=== PATIENT | female | born 1950 | race Caucasian/White ===

== ENCOUNTER 2018-06-07 08:45 | Emergency (ER) | payer OTHER ==
[2018-06-07] MEDS ORDERED: ASPIRIN 81 MG CHEWABLE TABLET ONE (10:00)
[2018-06-07] MEDS ORDERED: NA CHLORIDE 0.9% 1,000 ML ONE (10:00)
[2018-06-07 10:45] LABS: Protime INR 0.91
[2018-06-07 10:46] LABS: Absolute Lymphocytes (CBC) 1.5 K/uL (0.7-4.9); Absolute Monocytes 0.8 K/uL (0.1-1.3); Absolute Neutrophil 5.2 K/uL (1.8-8.0); Basophils % 0.9 % (0-1.3); Eosinophils % 1.2 % (0-4.4); Lymphocytes % 19.8 % (15.3-44.8); MCV 79.7 fL (80-100); MPV 8.7 fL (7.6-11.3); Monocytes % 10.8 % (3.3-12.3); RBC Red Blood Cell Count 3.77 M/uL (3.86-4.86)
[2018-06-07 10:56] LABS: ALT/SGPT 14 U/L (12-78); AST/SGOT 12 U/L (15-37); Albumin 3.7 g/dL (3.4-5.0); Alkaline Phosphatase 59 U/L (45-117); BUN Blood Urea Nitrogen 30 mg/dL (7-18); Bicarbonate 30 mmol/L (21-32); Bilirubin Direct 0.2 mg/dL (0-0.2); Bilirubin Total 0.7 mg/dL (0.2-1.0); Glucose Level 80 mg/dL (74-106); Lipase 1459 U/L (73-393); Magnesium 1.5 mg/dL (1.8-2.4); NT PRO-BNP 385 pg/mL (<125); Potassium 3.8 mmol/L (3.5-5.1); Protein, Total 6.9 g/dL (6.4-8.2); Sodium Level 139 mmol/L (136-145); Troponin (Emerg Dept Use Only) < 0.02 ng/mL (0.0-0.045)
[2018-06-07] MEDS ORDERED: LEVALBUTEROL 1.25 MG/3 ML NEB ONE (10:58)
[2018-06-07] MEDS ORDERED: CEFTRIAXONE/SWI 1gm 1 GM/10 ML SYR ONE (10:58)
[2018-06-07] MEDS ORDERED: IPRATROPIUM BROM 0.5MG/2.5ML ONE (10:58)
[2018-06-07] MEDS ORDERED: AZITHROMYCIN 500 MG/250 ML BAG ONE (10:58)
[2018-06-07 11:31] LABS: Urine Blood NEGATIVE (NEG); Urine Glucose NEGATIVE (NEG); Urine Protein NEGATIVE (NEG); Urine Specific Gravity 1.015 (1.005-1.030); Urine pH 7.5 (5.0-7.0)
[2018-06-07] MEDS ORDERED: Magnesium Sulfate 2gm IVPB 2 G/50 ML BAG IV ONE (11:40)
--- NOTE | 2018-06-07 11:45 | EKG ---
Test Date: 2018-06-07 Test Time: 10:04:48 Dietitian Consultant: ELIDA MEASUREMENT RESULTS: Intervals: Rate: 66 MA: 172 QRSD: 86 QT: 402 QTc: 421 [place]: P: 34 MA: 172 QRS: 58 T: 18 INTERPRETIVE STATEMENTS: Normal sinus rhythm Normal ECG Compared to ECG 12/11/2014 06:27:35 Sinus bradycardia no longer present Electronically Signed On 06-07-18 11:44:13 DREDGE OPERATOR SUPERVISOR by Xavier Pineda
--- NOTE | 2018-06-07 12:21 | RAD REPORT ---
EXAM DESCRIPTION: CT - Abdomen Pelvis W Contrast - 06/07/2018 11:50 am CLINICAL HISTORY: Abdominal pain, prior cholecystectomy and appendectomy COMPARISON: September 2013 CT imaging thoracic imaging 2017 TECHNIQUE: Biphasic, helical CT imaging of the abdomen and pelvis was performed following 100 ml non -ionic IV contrast. Oral contrast was given. Scanner malfunction resulted in an essentially precontra st and single-phase examination. All CT scans are performed using dose optimization technique as appropriate and may include automated exposure control or mA/KV adjustment according to patient size. FINDINGS: No suspicious findings in the lung bases. No pericardial thickening or effusion. Liver size is normal with no focal splenic abnormality. Spleen has a nodular contour similar to prior imaging. No acute splenic process. No pancreatic acute finding. Gallbladder is absent. No abnormal b iliary tree dilatation. Renal function is symmetric. No hydronephrosis or obstructing calculus. No pyelonephritis findings. N o urinary bladder wall thickening or mass. Uterus is absent. Ovaries are absent or atrophic. No dilated bowel loops or bowel wall thickening. Large amount of stool is present throughout the colo n. Diverticulosis is minimal. No free air, free fluid or inflammatory stranding. No hernia, mass or bulky lymphadenopathy. No adrenal abnormality. No suspicious bony findings. Acute bone finding suspected. Patient has extensive degenerative change in the lumbar spine. Partial compression of T12 is stable. IMPRESSION: Contrast enhanced CT abdomen and pelvis imaging shows no acute finding. There is large s tool volume throughout the colon.
--- NOTE | 2018-06-07 12:27 | ER ---
Nurse's Notes [facility] Name: Linda Menezes Age: 68 yrs Sex: Female : 1950 Arrival Date: 06/07/2018 Time: 08:49 Bed 13 Private MD: Bruce Joe E Diagnosis: Acute upper respiratory infection, unspecified;Bronchitis, not specified as acute or chronic;Type 2 diabetes mellitus;Other chronic pancreatitis-elevated lipase;Urinary tract infection, site not specified;Anemia, unspecified Presentation: 06/07 09:23 Presenting complaint: Patient states: last week was not feeling well, had cough, runny iw nose, this morning she woke up and couldn't breathe and had a hacking and dry cough, also having chest tightness. Transition of care: patient was not received from another setting of care. Onset of symptoms was May 31, 2018. Risk Assessment: Do you want to hurt yourself or someone else? Patient reports no desire to harm self or others. Initial Sepsis Screen: Does the patient meet any 2 criteria? No. Patient's initial sepsis screen is negative. Does the patient have a suspected source of infection? No. Patient's initial sepsis screen is negative. Care prior to arrival: None. 09:23 Method Of Arrival: Ambulatory iw 09:23 Acuity: ALHAJI 3 iw Historical: - Allergies: : NKA; iw - Home Meds: : naproxen 500 mg Oral TbEC 1 tab 2 times per day [Active]; glipizide 5 mg Oral tr24 1 iw tab once daily [Active]; metformin 850 mg Oral tab 1 tab 2 times per day [Active]; levothyroxine 137 mcg tab 1 tab once daily [Active]; fluticasone 50 mcg/actuation nasal spsn 1 spray once daily [Active]; potassium chloride 20 mEq Oral TbTQ 1 tab once daily [Active]; clonazepam 0.5 mg Oral tab 1 tab nightly [Active]; omeprazole 40 mg Oral cpDR 1 cap once daily [Active]; tramadol 50 mg Oral tab [Active]; carvedilol 6.25 mg oral tab 1 tab 2 times per day [Active]; duloxetine 20 mg oral cpDR daily [Active]; losartan-hydrochlorothiazide 100-25 mg oral tab 1 tab once daily [Active]; lovastatin 40 mg Oral tab 1 tab once daily [Active]; amlodipine 5 mg tab 1 tab once daily [Active]; - PMHx: 09:31 Diabetes - NIDDM; Hypertension; restless leg syndrome; iw - PSHx: 09:31 Hysterectomy; Carpal Tunnel Repair; Cholecystectomy; Appendectomy; right elbow; back; iw - Immunization history:: Adult Immunizations up to date. - Social history:: Smoking status: Patient/guardian denies using tobacco. - Ebola Screening: : Patient negative for fever greater than or equal to 101.5 degrees Fahrenheit, and additional compatible Ebola Virus Disease symptoms Patient denies exposure to infectious person Patient denies travel to an Ebola-affected area in the 21 days before illness onset No symptoms or risks identified at this time. - Family history:: not pertinent. Screenin:45 Abuse screen: Denies threats or abuse. Denies injuries from another. Nutritional jl7 screening: No deficits noted. Tuberculosis screening: No symptoms or risk factors identified. Fall Risk IV access (20 points). Total Vargas Fall Scale indicates No Risk (0-24 pts). Assessment: 09:45 General: Appears in no apparent distress. uncomfortable, Behavior is calm, cooperative, jl7 appropriate for age. Pain: Denies pain. Neuro: Level of Consciousness is awake, alert, obeys commands, Oriented to person, place, time, situation. Cardiovascular: Heart tones S1 S2 present Patient's skin is warm and dry. Respiratory: Airway is patent Respiratory effort is even, unlabored, Respiratory pattern is regular, symmetrical, Breath sounds are coarse in right upper lobe and left upper lobe. GI: No signs and/or symptoms were reported involving the gastrointestinal system. : No signs and/or symptoms were reported regarding the genitourinary system. EENT: No signs and/or symptoms were reported regarding the EENT system. Derm: Skin is pink, warm \T\ dry. Musculoskeletal: No signs and/or symptoms reported regarding the musculoskeletal system. 10:45 Reassessment: Patient appears in no apparent distress at this time. Patient and/or jl7 family updated on plan of care and expected duration. Pain level reassessed. Patient is alert, oriented x 3, equal unlabored respirations, skin warm/dry/pink. 11:49 Reassessment: No changes from previously documented assessment. Patient and/or family jl7 updated on plan of care and expected duration. Pain level reassessed. Patient is alert, oriented x 3, equal unlabored respirations, skin warm/dry/pink. Vital Signs: 09:31 BP 157 / 70; Pulse 68; Resp 18 S; Temp 98.8(TE); Pulse Ox 97% on R/A; Weight 79.38 kg; iw Height 5 ft. 4 in. (162.56 cm); Pain 4/10; 10:30 BP 132 / 65; Pulse 67; Resp 16 S; Pulse Ox 95% on R/A; jl7 12:07 BP 119 / 63; Pulse 68; Resp 18 S; Pulse Ox 95% on R/A; jl7 09:31 Body Mass Index 30.04 (79.38 kg, 162.56 cm) iw ED Course: 08:49 Patient arrived in ED. mr 08:50 Bruce Joe MD is Private Physician. mr 09:25 Triage completed. iw 09:26 Cee Alegria, RN is Primary Nurse. jl7 09:28 Frantz Urban MD is Attending Physician. nasrin 09:31 Arm band placed on. iw 09:45 Patient has correct armband on for positive identification. Placed in gown. Bed in low jl7 position. Call light in reach. Side rails up X2. laboratory monitor on. Pulse ox on. NIBP on. Warm blanket given. 10:05 Initial lab(s) drawn, by ca, sent to lab. Urine collected: clean catch specimen, jl7 cloudy. Inserted saline lock: 20 gauge in right hand, using aseptic technique. Blood collected. 10:08 First set of blood cultures drawn by me. jl7 10:09 EKG done, by production maintenance technician. reviewed by Frantz Urban MD. at1 10:30 Second set of blood cultures drawn. jl7 11:02 X-ray completed. Portable x-ray completed in exam room. Patient tolerated procedure jb2 well. 11:10 XRAY Chest (1 view) In Process Unspecified. EDMS 11:43 CT completed. Patient tolerated procedure well. Patient moved to CT via stretcher. vr 11:50 Patient moved back from CT. vr 11:51 CT Abd/Pelvis - W/Contrast In Process Unspecified. EDMS 12:26 Bruce Joe MD is Referral Physician. nasrin 12:26 Nissa Nixon MD is Referral Physician. [facility] 13:12 No provider procedures requiring assistance completed. IV discontinued, intact, jl7 bleeding controlled, No redness/swelling at site. Pressure dressing applied. Administered Medications: 10:00 Drug: NS 0.9% 1000 ml Route: IV; Rate: 125 ml/hr; Site: right antecubital; jl7 13:10 Follow up: IV Status: Completed infusion; Order to discontinue infusion jl7 11:30 Drug: Zithromax 500 mg Route: IVPB; Infused Over: 1 hrs; Site: right antecubital; jl7 13:08 Follow up: Response: No adverse reaction; IV Status: Completed infusion jl7 11:39 Drug: Magnesium Sulfate 2 grams Route: IVPB; Infused Over: 2 hrs; Site: right jl7 antecubital; 13:08 Follow up: IV Status: Completed infusion jl7 11:40 Not Given (Other Intervention Used): Rocephin - (cefTRIAXone) 1 grams IVPB once over 30 jl7 mins; (mix in 50 mL NS) 11:43 Drug: Aspirin 162 mg Route: PO; jl7 13:07 Follow up: Response: No adverse reaction jl7 11:43 Drug: Xopenex 2.5 mg Route: Inhalation; jl7 13:09 Follow up: Response: No adverse reaction jl7 11:43 Drug: AtroVENT Aerosol 0.5 mg Route: Inhalation; jl7 13:09 Follow up: Response: No adverse reaction jl7 11:43 Drug: Rocephin 1 grams Route: IV; Rate: calculated rate; Site: right antecubital; jl7 11:46 Follow up: Response: No adverse reaction; IV Status: Completed infusion jl7 Outcome: 12:27 Discharge ordered by . [facility] 13:11 Discharged to home ambulatory. jl7 13:11 Condition: stable 13:11 Discharge instructions given to patient, Instructed on discharge instructions, follow up and referral plans. medication usage, Demonstrated understanding of instructions, follow-up care, medications. 13:13 Patient left the ED. jl7 Signatures: Dispatcher [employer] EDFrantz Ballesteros MD MD cha Rivera, Rosamaria mr Elvis, Gabe jb2 Supriya Stevenson, RN RN Patti Newell Amanda, crocodile farmer EKG Tat1 Alegria, Jahala, RN RN jl7
--- NOTE | 2018-06-07 12:27 | EDPHYS ---
Physician Documentation [facility] Name: Linda Menezes Age: 68 yrs Sex: Female : 1950 Arrival Date: 06/07/2018 Time: 08:49 Bed 13 Private MD: Bruce Joe E ED Physician Frantz Urban HPI: 06/07 10:06 This 68 yrs old Female presents to ER via Ambulatory with complaints of nasrin Cough, Congestion. 10:06 The patient or guardian reports airway noise, cough. Onset: The symptoms/episode nasrin began/occurred 5 day(s) ago. Severity of symptoms: At their worst the symptoms were mild, in the emergency department the symptoms are unchanged. Modifying factors: The symptoms are alleviated by nothing, the symptoms are aggravated by nothing. The patient has not experienced similar symptoms in the past. Historical: - Allergies: NKA; iw - Home Meds: : naproxen 500 mg Oral TbEC 1 tab 2 times per day [Active]; glipizide 5 mg Oral tr24 1 iw tab once daily [Active]; metformin 850 mg Oral tab 1 tab 2 times per day [Active]; levothyroxine 137 mcg tab 1 tab once daily [Active]; fluticasone 50 mcg/actuation nasal spsn 1 spray once daily [Active]; potassium chloride 20 mEq Oral TbTQ 1 tab once daily [Active]; clonazepam 0.5 mg Oral tab 1 tab nightly [Active]; omeprazole 40 mg Oral cpDR 1 cap once daily [Active]; tramadol 50 mg Oral tab [Active]; carvedilol 6.25 mg oral tab 1 tab 2 times per day [Active]; duloxetine 20 mg oral cpDR daily [Active]; losartan-hydrochlorothiazide 100-25 mg oral tab 1 tab once daily [Active]; lovastatin 40 mg Oral tab 1 tab once daily [Active]; amlodipine 5 mg tab 1 tab once daily [Active]; - PMHx: : Diabetes - NIDDM; Hypertension; restless leg syndrome; iw - PSHx: Hysterectomy; Carpal Tunnel Repair; Cholecystectomy; Appendectomy; right elbow; back; iw - Immunization history:: Adult Immunizations up to date. - Social history:: Smoking status: Patient/guardian denies using tobacco. - Ebola Screening: : Patient negative for fever greater than or equal to 101.5 degrees Fahrenheit, and additional compatible Ebola Virus Disease symptoms Patient denies exposure to infectious person Patient denies travel to an Ebola-affected area in the 21 days before illness onset No symptoms or risks identified at this time. - Family history:: not pertinent. ROS: 10:06 Constitutional: Negative for fever, chills, and weight loss, Eyes: Negative for injury, nasrin pain, redness, and discharge, ENT: Negative for injury, pain, and discharge, Neck: Negative for injury, pain, and swelling, Cardiovascular: Negative for chest pain, palpitations, and edema, Abdomen/GI: Negative for abdominal pain, nausea, vomiting, diarrhea, and constipation, Back: Negative for injury and pain, : Negative for injury, bleeding, discharge, and swelling, MS/Extremity: Negative for injury and deformity, Skin: Negative for injury, rash, and discoloration, Neuro: Negative for headache, weakness, numbness, tingling, and seizure, Psych: Negative for depression, anxiety, suicide ideation, homicidal ideation, and hallucinations, Allergy/Immunology: Negative for hives, rash, and allergies, Endocrine: Negative for neck swelling, polydipsia, polyuria, polyphagia, and marked weight changes, Hematologic/Lymphatic: Negative for swollen nodes, abnormal bleeding, and unusual bruising. 10:06 Constitutional: Positive for body aches. 10:06 Respiratory: Positive for cough, wheezing, expiratory. Exam: 10:06 Constitutional: This is a well developed, well nourished patient who is awake, alert, nasrin and in no acute distress. Head/Face: Normocephalic, atraumatic. Eyes: Pupils equal round and reactive to light, extra-ocular motions intact. Lids and lashes normal. Conjunctiva and sclera are non-icteric and not injected. Cornea within normal limits. Periorbital areas with no swelling, redness, or edema. ENT: Nares patent. No nasal discharge, no septal abnormalities noted. Tympanic membranes are normal and external auditory canals are clear. Oropharynx with no redness, swelling, or masses, exudates, or evidence of obstruction, uvula midline. Mucous membranes moist. Neck: Trachea midline, no thyromegaly or masses palpated, and no cervical lymphadenopathy. Supple, full range of motion without nuchal rigidity, or vertebral point tenderness. No Meningismus. Chest/axilla: Normal chest wall appearance and motion. Nontender with no deformity. No lesions are appreciated. Cardiovascular: Regular rate and rhythm with a normal S1 and S2. No gallops, murmurs, or rubs. Normal PMI, no JVD. No pulse deficits. Abdomen/GI: Soft, non-tender, with normal bowel sounds. No distension or tympany. No guarding or rebound. No evidence of tenderness throughout. Back: No spinal tenderness. No costovertebral tenderness. Full range of motion. Female : Normal external genitalia. Skin: Warm, dry with normal turgor. Normal color with no rashes, no lesions, and no evidence of cellulitis. MS/ Extremity: Pulses equal, no cyanosis. Neurovascular intact. Full, normal range of motion. Neuro: Awake and alert, GCS 15, oriented to person, place, time, and situation. Cranial nerves II-XII grossly intact. Motor strength 5/5 in all extremities. Sensory grossly intact. Cerebellar exam normal. Normal gait. Psych: Awake, alert, with orientation to person, place and time. Behavior, mood, and affect are within normal limits. 10:06 Respiratory: the patient does not display signs of respiratory distress, Respirations: normal, Breath sounds: are clear throughout, rhonchi, that are mild. Vital Signs: 09:31 BP 157 / 70; Pulse 68; Resp 18 S; Temp 98.8(TE); Pulse Ox 97% on R/A; Weight 79.38 kg; iw Height 5 ft. 4 in. (162.56 cm); Pain 4/10; 10:30 BP 132 / 65; Pulse 67; Resp 16 S; Pulse Ox 95% on R/A; jl7 12:07 BP 119 / 63; Pulse 68; Resp 18 S; Pulse Ox 95% on R/A; jl7 09:31 Body Mass Index 30.04 (79.38 kg, 162.56 cm) iw MDM: 09:28 Patient medically screened. [facility] 10:07 Data reviewed: vital signs, nurses notes, lab test result(s), EKG, radiologic studies, nasrin plain films. 06/07 09:35 Order name: Basic Metabolic Panel; Complete Time: 11: [facility] 06/07 09:35 Order name: CBC with Diff; Complete Time: 11: [facility] 06/07 09:35 Order name: LFT's; Complete Time: 11:09 [facility] 06/07 09:35 Order name: Magnesium; Complete Time: 11:09 [facility] 06/07 09:35 Order name: NT PRO-BNP; Complete Time: 11:09 [facility] 06/07 09:35 Order name: PT-INR; Complete Time: 11:09 [facility] 06/07 09:35 Order name: Troponin (emerg Dept Use Only); Complete Time: 11:09 [facility] 06/07 09:35 Order name: XRAY Chest (1 view) [facility] 06/07 09:35 Order name: Flu; Complete Time: 11:32 [facility] 06/07 09:35 Order name: Lipase; Complete Time: 11:09 [facility] 06/07 09:35 Order name: Urine Culture [facility] 06/07 10:05 Order name: Blood Culture Adult (2) [facility] 06/07 10:21 Order name: Urine Dipstick--Ancillary (enter results); Complete Time: 11:32 06/07 11:11 Order name: CT Abd/Pelvis - W/Contrast; Complete Time: 12:26 [facility] 06/07 09:35 Order name: EKG; Complete Time: 09:38 [facility] 06/07 09:35 Order name: Cardiac monitoring; Complete Time: 11:45 [facility] 06/07 09:35 Order name: EKG - Nurse/Tech; Complete Time: 11:45 [facility] 06/07 09:35 Order name: IV Saline Lock; Complete Time: 11:45 [facility] 06/07 09:35 Order name: Labs collected and sent; Complete Time: 11:45 [facility] 06/07 09:35 Order name: O2 Per Protocol; Complete Time: 11:45 [facility] 06/07 09:35 Order name: O2 Sat Monitoring; Complete Time: 11:44 [facility] 06/07 09:35 Order name: Urine Dipstick-Ancillary (obtain specimen); Complete Time: 11:44 [facility] Administered Medications: 10:00 Drug: NS 0.9% 1000 ml Route: IV; Rate: 125 ml/hr; Site: right antecubital; jl7 13:10 Follow up: IV Status: Completed infusion; Order to discontinue infusion 11:30 Drug: Zithromax 500 mg Route: IVPB; Infused Over: 1 hrs; Site: right antecubital; jl7 13:08 Follow up: Response: No adverse reaction; IV Status: Completed infusion jl7 11:39 Drug: Magnesium Sulfate 2 grams Route: IVPB; Infused Over: 2 hrs; Site: right jl7 antecubital; 13:08 Follow up: IV Status: Completed infusion jl7 11:40 Not Given (Other Intervention Used): Rocephin - (cefTRIAXone) 1 grams IVPB once over 30 jl7 mins; (mix in 50 mL NS) 11:43 Drug: Aspirin 162 mg Route: PO; jl7 13:07 Follow up: Response: No adverse reaction 7 11:43 Drug: Xopenex 2.5 mg Route: Inhalation; jl7 13:09 Follow up: Response: No adverse reaction jl7 11:43 Drug: AtroVENT Aerosol 0.5 mg Route: Inhalation; jl7 13:09 Follow up: Response: No adverse reaction 7 11:43 Drug: Rocephin 1 grams Route: IV; Rate: calculated rate; Site: right antecubital; jl7 11:46 Follow up: Response: No adverse reaction; IV Status: Completed infusion jl7 Disposition: 06/07/18 12:27 Discharged to Home. Impression: Acute upper respiratory infection, unspecified, Bronchitis, not specified as acute or chronic, Type 2 diabetes mellitus, Other chronic pancreatitis - elevated lipase, Urinary tract infection, site not specified, Anemia, unspecified. - Condition is Stable. - Discharge Instructions: Acute Bronchitis, Adult, How to Use an Inhaler, Upper Respiratory Infection, Adult, Cool Mist Vaporizer, Upper Respiratory Infection, Adult, [id number], Cough, Adult. - Prescriptions for Medrol (Misha) 4 mg Oral Tablets, Dose Pack - take 1 tablet by ORAL route as directed - follow package instructions; 1 packet. Albuterol Sulfate 90 mcg/actuation - inhale 1-2 puff by INHALATION route every 4-6 hours; 1 Inhaler. Levaquin 500 mg Oral Tablet - take 1 tablet by ORAL route once daily for 10 days; 10 tablet. - Medication Reconciliation Form, Thank You Letter, Antibiotic Education, Prescription Opioid Use form. - Follow up: Bruce Joe; When: 2 - 3 days; Reason: Recheck today's complaints, Continuance of care, Re-evaluation by your physician. Follow up: Nissa Nixon; When: 2 - 3 days; Reason: Recheck today's complaints, Re-evaluation by your physician. - Problem is new. - Symptoms have improved. Signatures: Dispatcher [employer] EDMS Frantz Urban MD MD cha Williams, Irene, RN RN iw Leal, Jahala, RN RN jl7 Corrections: (The following items were deleted from the chart) 13:13 12:27 06/07/2018 12:27 Discharged to Home. Impression: Acute upper respiratory jl7 infection, unspecified; Bronchitis, not specified as acute or chronic; Type 2 diabetes mellitus; Other chronic pancreatitis - elevated lipase; Urinary tract infection, site not specified; Anemia, unspecified. Condition is Stable. Discharge Instructions: Acute Bronchitis, Adult, How to Use an Inhaler, Upper Respiratory Infection, Adult, Cool Mist Vaporizer, Upper Respiratory Infection, Adult, [id number], Cough, Adult. Prescriptions for Medrol (Misha) 4 mg Oral Tablets, Dose Pack - take 1 tablet by ORAL route as directed - follow package instructions; 1 packet, Albuterol Sulfate 90 mcg/actuation - inhale 1-2 puff by INHALATION route every 4-6 hours; 1 Inhaler, Levaquin 500 mg Oral Tablet - take 1 tablet by ORAL route once daily for 10 days; 10 tablet. and Forms are Medication Reconciliation Form, Thank You Letter, Antibiotic Education, Prescription Opioid Use. Follow up: Bruce Joe; When: 2 - 3 days; Reason: Recheck today's complaints, Continuance of care, Re-evaluation by your physician. Follow up: Nissa Nixon; When: 2 - 3 days; Reason: Recheck today's complaints, Re-evaluation by your physician. Problem is new. Symptoms have improved. nasrin
--- NOTE | 2018-06-07 13:10 | RAD REPORT ---
EXAM DESCRIPTION: Elisha Single View06/07/2018 11:09 am CLINICAL HISTORY: Cough COMPARISON: 2014 FINDINGS: The lungs appear clear of acute infiltrate. The heart is borderline enlarged IMPRESSION: No acute abnormalities displayed
[2018-06-07 15:10] VITALS: TEMP 98.8
[2018-06-07 15:12] VITALS: O2SAT 95
[2018-06-07 15:13] VITALS: BP 119/63
== END 2018-06-07 13:13 | disposition home or self-care (01) ==
LOC: ER 08:45
DX: J40 Bronchitis, not specified as acute or chronic (principal); N39.0 Urinary tract infection, site not specified; K86.1 Other chronic pancreatitis; D64.9 Anemia, unspecified; E11.9 Type 2 diabetes mellitus without complications; I10 Essential (primary) hypertension
CPT/HCPCS: 36415; 71045; 74177; 80048; 80076; 81003; 83690; 83735; 83880; 84484; 85025; 85610; 87040 ×2; 87086; 87088; 87804 ×2; 93005; J0456; J0696; J3475; J7030; Q9967

== ENCOUNTER 2018-06-09 08:43 | Observation (INO) | payer OTHER ==
[2018-06-09] MEDS ORDERED: ONDANSETRON 4 MG/2 ML VIAL ONE (09:34)
[2018-06-09] MEDS ORDERED: NA CHLORIDE 0.9% 500 ML ONE (09:34)
[2018-06-09] MEDS ORDERED: FAMOTIDINE 20 MG/2 ML VIAL IV ONE (09:34)
[2018-06-09 09:46] LABS: Absolute Lymphocytes (CBC) 1.4 K/uL (0.7-4.9); Absolute Monocytes 0.5 K/uL (0.1-1.3); Absolute Neutrophil 5.1 K/uL (1.8-8.0); Basophils % 1.1 % (0-1.3); Eosinophils % 1.5 % (0-4.4); Hematocrit 28.5 % (36.0-45.0); Lymphocytes % 18.9 % (15.3-44.8); MCH 25.8 pg (27.0-35.0); MCV 79.3 fL (80-100); MPV 8.3 fL (7.6-11.3); Monocytes % 7.2 % (3.3-12.3); RBC Red Blood Cell Count 3.59 M/uL (3.86-4.86)
[2018-06-09 10:04] LABS: ALT/SGPT 15 U/L (12-78); AST/SGOT 12 U/L (15-37); Albumin 3.3 g/dL (3.4-5.0); Alkaline Phosphatase 52 U/L (45-117); BUN Blood Urea Nitrogen 36 mg/dL (7-18); Bicarbonate 28 mmol/L (21-32); Bilirubin Direct 0.2 mg/dL (0-0.2); Bilirubin Total 0.6 mg/dL (0.2-1.0); Glucose Level 98 mg/dL (74-106); Lipase 1203 U/L (73-393); Protein, Total 6.5 g/dL (6.4-8.2); Sodium Level 139 mmol/L (136-145); Troponin (Emerg Dept Use Only) < 0.02 ng/mL (0.0-0.045)
--- NOTE | 2018-06-09 10:54 | RAD REPORT ---
EXAM DESCRIPTION: RAD - Chest Single View - 06/09/2018 10:47 am CLINICAL HISTORY: COUGH Chest pain. COMPARISON: Chest Single View dated 06/07/2018; CHEST SINGLE VIEW dated 12/10/2014; CHEST SINGLE VIEW dated 12/09/2014; CHEST PA AND LAT 2 VIEW dated 11/30/2014 FINDINGS: Portable technique limits examination quality. The lungs are grossly clear. The heart is upper limit of normal in size. No displaced fractures. IMPRESSION: No acute intrathoracic process suspected.
[2018-06-09] MEDS ORDERED: METOCLOPRAMIDE 10 MG/2mL INJ ONE (13:29)
[2018-06-09] MEDS ORDERED: MORPHINE 2 MG/ML SYR ONE (13:29)
--- NOTE | 2018-06-09 14:14 | EKG ---
Test Date: 2018-06-09 Test Time: 11:36:47 Csm Consultant: ELIDA MEASUREMENT RESULTS: Intervals: Rate: 62 GA: 188 QRSD: 92 QT: 446 QTc: 452 [place]: P: 26 GA: 188 QRS: 15 T: 33 INTERPRETIVE STATEMENTS: Normal sinus rhythm Normal ECG Compared to ECG 06/07/2018 10:04:48 No significant changes Electronically Signed On 06-09-18 14:13:27 CUSTOM SHOEMAKER by Xavier Pineda
[2018-06-09] MEDS ORDERED: TRAMADOL HCL 50 MG TAB PO PRN (15:31)
[2018-06-09] MEDS ORDERED: SODIUM CHLORIDE 0.9% 10ML INJ IV PRN (15:31)
[2018-06-09] MEDS ORDERED: ALBUTEROL 2.5 MG/3 ML NEB SOL NEB PRN (15:31)
[2018-06-09] MEDS ORDERED: MORPHINE 2 MG/ML SYR IV PRN (15:31)
[2018-06-09] MEDS ORDERED: ACETAMINOPHEN 500 MG TAB PO PRN (15:31)
[2018-06-09] MEDS ORDERED: HYDROCODONE/APAP 7.5/325 MG TAB PO PRN (15:31)
[2018-06-09] MEDS ORDERED: BENZONATATE 100 MG CAP PO PRN (15:31)
[2018-06-09] MEDS ORDERED: ONDANSETRON 4 MG/2 ML VIAL IV PRN (15:31)
[2018-06-09] MEDS ORDERED: IPRATROPIUM BROM 0.5MG/2.5ML NEB PRN (15:31)
[2018-06-09] MEDS ORDERED: HYDRALAZINE HCL 20 MG/ML VIAL IV PRN (15:31)
[2018-06-09] MEDS ORDERED: clonazePAM 0.5 MG TAB PO PRN (15:31)
--- NOTE | 2018-06-09 15:57 | ER ---
Nurse's Notes [facility] Name: Linda Menezes Age: 68 yrs Sex: Female : 1950 Arrival Date: 06/09/2018 Time: 08:48 Bed 18 Private MD: Bruce Joe E Diagnosis: Weakness;Nausea and vomiting-Intractable;Dehydration;Renal Insufficiency Presentation: 06/09 09:00 Presenting complaint: Patient states: Seen 2 days ago in ER for cough, feet swelling/ ss tingling and reports that she was supposed to follow up with her PCP today in 30 minutes, but began vomiting and felt as if she couldn't wait that long. Transition of care: patient was not received from another setting of care. Onset of symptoms was May 30, 2018. Risk Assessment: Do you want to hurt yourself or someone else? Patient reports no desire to harm self or others. Initial Sepsis Screen: Does the patient meet any 2 criteria? No. Patient's initial sepsis screen is negative. Does the patient have a suspected source of infection? No. Patient's initial sepsis screen is negative. Care prior to arrival: None. 09:00 Method Of Arrival: Ambulatory ss 09:00 Acuity: ALHAJI 3 ss Historical: - Allergies: 09:02 NKA; ss - PMHx: 09:02 Diabetes - NIDDM; Hypertension; restless leg syndrome; ss - PSHx: 09:02 Hysterectomy; Carpal Tunnel Repair; Cholecystectomy; Appendectomy; right elbow; back; ss - Immunization history:: Adult Immunizations up to date. - Social history:: Smoking status: Patient/guardian denies using tobacco. - Ebola Screening: : Patient denies exposure to infectious person Patient denies travel to an Ebola-affected area in the 21 days before illness onset. Screenin:30 Abuse screen: Denies threats or abuse. Nutritional screening: No deficits noted. em Tuberculosis screening: No symptoms or risk factors identified. Fall Risk None identified. Assessment: 09:30 General: Appears in no apparent distress. comfortable, Behavior is calm, cooperative, em Denies fever. Pain: Complains of pain in diaphragm Pain currently is 4 out of 10 on a pain scale. Neuro: Level of Consciousness is awake, alert, obeys commands, Oriented to person, place, time, situation. Cardiovascular: Capillary refill < 3 seconds Patient's skin is warm and dry. Respiratory: Reports cough that is dry, Airway is patent Respiratory effort is even, unlabored, Respiratory pattern is regular, symmetrical, Breath sounds are clear bilaterally. GI: Abdomen is round non-distended, Reports nausea, vomiting, Patient currently denies diarrhea. : No signs and/or symptoms were reported regarding the genitourinary system. EENT: No signs and/or symptoms were reported regarding the EENT system. Derm: Skin is intact, Skin is pink, warm \T\ dry. Musculoskeletal: Range of motion: intact in all extremities. 09:40 General: The previous assessment is accurate, call light remains within reach. ss 10:45 Reassessment: Patient appears in no apparent distress at this time. Patient and/or em family updated on plan of care and expected duration. Pain level reassessed. Patient is alert, oriented x 3, equal unlabored respirations, skin warm/dry/pink. Patient states symptoms have not improved. 11:30 Reassessment: Patient appears in no apparent distress at this time. Patient and/or em family updated on plan of care and expected duration. Pain level reassessed. Patient is alert, oriented x 3, equal unlabored respirations, skin warm/dry/pink. 13:30 Reassessment: Patient appears in no apparent distress at this time. pt reports pain and em nausea, provider notified, new medication orders received. 14:30 Reassessment: Patient appears in no apparent distress at this time. Patient and/or em family updated on plan of care and expected duration. Pain level reassessed. Patient is alert, oriented x 3, equal unlabored respirations, skin warm/dry/pink. resting comfortably. 15:10 Reassessment: Dr. Arriaza at bedside, pending admission. em 15:32 Reassessment: Patient appears in no apparent distress at this time. Patient and/or em family updated on plan of care and expected duration. Pain level reassessed. Patient is alert, oriented x 3, equal unlabored respirations, skin warm/dry/pink. rates pain 2/10 Patient states feeling better. Patient states symptoms have improved. 16:30 Reassessment: Patient appears in no apparent distress at this time. Patient and/or em family updated on plan of care and expected duration. Pain level reassessed. Patient is alert, oriented x 3, equal unlabored respirations, skin warm/dry/pink. Patient states feeling better. Patient states symptoms have improved. 17:42 Reassessment: Patient appears in no apparent distress at this time. Patient and/or em family updated on plan of care and expected duration. Pain level reassessed. Patient is alert, oriented x 3, equal unlabored respirations, skin warm/dry/pink. Patient states feeling better. Patient states symptoms have improved. Vital Signs: 09:02 BP 166 / 81; Pulse 69; Resp 17; Temp 98.8(O); Pulse Ox 98% on R/A; Weight 78.93 kg; ss Height 5 ft. 4 in. (162.56 cm); Pain 4/10; 10:34 BP 126 / 67; Pulse 60; Resp 18; Pulse Ox 99% on R/A; em 12:00 BP 127 / 59; Pulse 66; Resp 18; Pulse Ox 99% on R/A; em 13:00 BP 112 / 84; Pulse 73; Resp 18; Pulse Ox 97% on R/A; Pain 6/10; em 09:02 Body Mass Index 29.87 (78.93 kg, 162.56 cm) ED Course: 08:48 Patient arrived in ED. sb2 08:49 Bruce Joe MD is Private Physician. sb2 08:56 Tomi Mijares LVN is Primary Nurse. em 09:02 Triage completed. ss 09:02 Arm band placed on right wrist. ss 09:08 Justin Singh MD is Attending Physician. kdr 09:35 Initial lab(s) drawn, by me, sent to lab. Inserted saline lock: 20 gauge in right em antecubital area, using aseptic technique. Blood collected. 09:45 Patient has correct armband on for positive identification. Placed in gown. Bed in low em position. Call light in reach. Adult w/ patient. 10:44 X-ray completed. Portable x-ray completed in exam room. Patient tolerated procedure jb2 well. 10:47 CXR XRAY In Process Unspecified. EDMS 11:42 EKG done, by quality control technician. reviewed by Justin Singh MD. at1 15:53 Sumit Arriaza DO is Hospitalizing Provider. kdr 17:19 by me, sent to lab. mh5 17:41 No provider procedures requiring assistance completed. Patient admitted, IV remains in em place. Administered Medications: 09:38 Drug: Zofran 4 mg Route: IVP; Site: right antecubital; ss 10:37 Follow up: Response: No adverse reaction; Nausea unchanged em 09:38 Drug: Pepcid 20 mg Route: IVP; Site: right antecubital; ss 10:37 Follow up: Response: No adverse reaction; Pain is decreased em 09:40 Drug: NS 0.9% 500 ml Route: IV; Rate: bolus; Site: right antecubital; em 10:33 Follow up: IV Status: Completed infusion; IV Intake: 500ml em 13:37 Drug: Reglan 10 mg Route: IVP; Site: right antecubital; ss 15:37 Follow up: Response: No adverse reaction; Nausea is decreased em 13:51 Drug: morphine 2 mg Route: IVP; Site: right antecubital; ss 15:38 Follow up: Response: No adverse reaction; Pain is decreased em Intake: 10:33 IV: 500ml; Total: 500ml. em Outcome: 15:56 Decision to Hospitalize by Provider. kdr 17:41 Admitted to Med/surg accompanied by tech, via wheelchair, room 421, with chart, Report em called to SENG Anguiano 17:41 Condition: good 17:41 Instructed on the need for admit, Demonstrated understanding of instructions. 17:42 Patient left the ED. em Signatures: Dispatcher [employer] EDMS Justin Singh MD MD kdr Buechter, Jesse jb2 Tomi Mijares, EDM OPERATOR EDM OPERATOR em Chantelle Varela RN RN Gretel Shin, rn international EKG [email or web address] Tammy Scherer mh5 Elaine Lucero2 Corrections: (The following items were deleted from the chart) 09:03 09:00 Presenting complaint: Patient states: Seen 2 days ago in ER for cough and reports ss that she was supposed to follow up with her PCP today in 30 minutes, but began vomiting and felt as if she couldn't wait that long. ss 13:35 13:29 BP 112 / 84; Pulse 71bpm; Resp 18bpm; Pulse Ox 99% RA; Pain 9/10; em em 13:35 12:00 BP 125 / 95; Pulse 83bpm; Resp 18bpm; Pulse Ox 99% RA; Pain 9/10; em em 13: 12:01 General: Appears uncomfortable, Behavior is calm, cooperative, Denies fever, em em 13: 12:01 Pain: Complains of pain in right lower quadrant Pain currently is 9 out of 10 on em a pain scale. Quality of pain is described as sharp, stabbing, Pain began 1 week ago em 13: 12:01 Neuro: Level of Consciousness is awake, alert, obeys commands, Oriented to em person, place, time, situation, em 13: 12:01 Cardiovascular: Capillary refill < 3 seconds Patient's skin is warm and dry. em em 13: 12:01 Respiratory: Airway is patent Respiratory effort is even, unlabored, Respiratory em pattern is regular, symmetrical, em 13: 12: GI: Abdomen is round non-distended, Bowel sounds present X 4 quads. Abd is soft X em 4 quads Abdomen is tender to palpation in right lower quadrant Reports nausea, Patient currently denies diarrhea, em : 12: : No signs and/or symptoms were reported regarding the genitourinary system. em Denies burning with urination, discharge, vaginal bleeding, em 13: 12:01 EENT: No signs and/or symptoms were reported regarding the EENT system. em em 13: 12:01 Derm: Skin is intact, Skin is pink, warm \T\ dry. em em 13: 12:01 Musculoskeletal: Range of motion: intact in all extremities, em em
--- NOTE | 2018-06-09 15:57 | EDPHYS ---
Physician Documentation [facility] Name: Linda Menezes Age: 68 yrs Sex: Female : 1950 Arrival Date: 06/09/2018 Time: 08:48 Bed 18 Private MD: Bruce Joe E ED Physician Justin Singh Historical: - Allergies: 06/09 09:02 NKA; ss - PMHx: 09:02 Diabetes - NIDDM; Hypertension; restless leg syndrome; ss - PSHx: 09:02 Hysterectomy; Carpal Tunnel Repair; Cholecystectomy; Appendectomy; right elbow; back; ss - Immunization history:: Adult Immunizations up to date. - Social history:: Smoking status: Patient/guardian denies using tobacco. - Ebola Screening: : Patient denies exposure to infectious person Patient denies travel to an Ebola-affected area in the 21 days before illness onset. Vital Signs: 09:02 BP 166 / 81; Pulse 69; Resp 17; Temp 98.8(O); Pulse Ox 98% on R/A; Weight 78.93 kg; ss Height 5 ft. 4 in. (162.56 cm); Pain 4/10; 10:34 BP 126 / 67; Pulse 60; Resp 18; Pulse Ox 99% on R/A; em 12:00 BP 127 / 59; Pulse 66; Resp 18; Pulse Ox 99% on R/A; em 13:00 BP 112 / 84; Pulse 73; Resp 18; Pulse Ox 97% on R/A; Pain 6/10; em 09:02 Body Mass Index 29.87 (78.93 kg, 162.56 cm) ss MDM: 15:56 Patient medically screened. kdr 06/09 09:19 Order name: Basic Metabolic Panel; Complete Time: 10:58 kdr 06/09 09:19 Order name: CBC with Diff; Complete Time: 10:58 kdr 06/09 09:19 Order name: Creatinine for Radiology; Complete Time: 10:58 kdr 06/09 09:19 Order name: Hepatic Function; Complete Time: 10:58 kdr 06/09 09:19 Order name: Lipase; Complete Time: 10:58 kdr 06/09 09:19 Order name: Troponin (emerg Dept Use Only); Complete Time: 10:58 kdr 06/09 09:19 Order name: IV Saline Lock; Complete Time: 11:26 kdr 06/09 09:19 Order name: CXR XRAY; Complete Time: 10:58 kdr 06/09 16:34 Order name: RAD EDMS 06/09 09:19 Order name: Labs collected and sent; Complete Time: 11:26 kdr 06/09 09:19 Order name: EKG - Nurse/Tech; Complete Time: 12:54 kdr Administered Medications: 09:38 Drug: Zofran 4 mg Route: IVP; Site: right antecubital; ss 10:37 Follow up: Response: No adverse reaction; Nausea unchanged em 09:38 Drug: Pepcid 20 mg Route: IVP; Site: right antecubital; ss 10:37 Follow up: Response: No adverse reaction; Pain is decreased em 09:40 Drug: NS 0.9% 500 ml Route: IV; Rate: bolus; Site: right antecubital; em 10:33 Follow up: IV Status: Completed infusion; IV Intake: 500ml em 13:37 Drug: Reglan 10 mg Route: IVP; Site: right antecubital; ss 15:37 Follow up: Response: No adverse reaction; Nausea is decreased em 13:51 Drug: morphine 2 mg Route: IVP; Site: right antecubital; ss 15:38 Follow up: Response: No adverse reaction; Pain is decreased em Disposition: 06/09/18 15:56 Hospitalization ordered by Sumit Arriaza for Observation. Preliminary diagnosis are Weakness, Nausea and vomiting - Intractable, Dehydration, Renal Insufficiency. - Bed requested for Telemetry/MedSurg (observation). - Status is Observation. em - Condition is Fair. - Problem is an ongoing problem. - Symptoms are unchanged. UTI on Admission? No Addendum: 06/16/2018 06:03 Addendum: CC: Vomiting HPI: The patient states that she has been feeling poorly for the k dr last day and had an appointment with her PCP in about 30 minutes but didnt feel well enough to get the office . Addendum: ROS: Const: No fever, chills or weight loss, Eyes: no visual changes or c/o, Neck: no pain or injury, CV: no CP or palpitations, Resp: no SOB, cough or congestion, Abd: no diarrhea or pain, she has had n/v this morning Back: no pain or injury, : no pain or bleeding, MS/Ext: no pain, injury, swelling, tingling, Skin: no lacerations, pain, injury, skin turgor good, Neuro: CN grossly intact and no other deficits, Psych: Appropriate for age, Allergy/Immunology: no rashes or other s/s, Endo: no evidence of polyuria, polydipsia, temperature control or other s/s . Addendum: Exam: Const: WDWN WF in mild, Head/Face: no injury, pain or deformity, Eyes: PERRLA, ENT: no pain, injury or bleeding, Neck: no pain, injury or deformity, full ROM, Chest/Axilla: No pain, injury or deformity, CV: no rubs, gallops, murmurs, regular rate, Resp: CTAB, regular rate, Abd/GI: soft, NT, BS present in all quads and normal, Back: no injury or deformity, full ROM, MS/Extremity: no injury or deformity, FROM, distal pulses good and equal, Skin: no rashes, ecchymosis skin turgor good, Neuro: CN grossly intact, no other neuro deficits, Psych: appropriate for age, no SI/HI, no depression . Addendum: MDM (Admission - stable) All VS and nursing notes reviewed. The patient and/or family was counseled on the results and need for admission. The patient was admitted in stable condition. They were happy with the care received and the plan for admission and further evaluation and treatment. . Signatures: Dispatcher [employer] EDMS Justin Singh MD MD kdr Munoz, Edgar, TABLEAU DEVELOPER TABLEAU DEVELOPER Michael Harry emChantelle Sánchez, SENG RN ss Corrections: (The following items were deleted from the chart) 06/09 16:43 15:56 Hospitalization Ordered by Sumit Arriaza DO for Observation. Preliminary em1 diagnosis is Weakness; Nausea and vomiting - Intractable; Dehydration; Renal Insufficiency. Bed requested for Telemetry/MedSurg (observation). Status is Observation. Condition is Fair. Problem is an ongoing problem. Symptoms are unchanged. UTI on Admission? No. kdr 17:42 16:43 06/09/2018 15:56 Hospitalization Ordered by Sumit Arriaza DO for Observation. em Preliminary diagnosis is Weakness; Nausea and vomiting - Intractable; Dehydration; Renal Insufficiency. Bed requested for Telemetry/MedSurg (observation). Status is Observation. Condition is Fair. Problem is an ongoing problem. Symptoms are unchanged. UTI on Admission? No. em1
--- NOTE | 2018-06-09 16:11 | P.HP ---
Certification for Inpatient Patient admitted to: Observation With expected LOS: <2 Midnights Patient will require the following post-hospital care: None Practitioner: I am a practitioner with admitting privileges, knowledge of patient current condition, hospital course, and medical plan of care. Services: Services provided to patient in accordance with Admission requirements found in Title 42 Section 412.3 of the Code of Federal Regulations Patient History Date of Service: 06/09/18 Primary Care Provider: Dr. Joe Reason for admission: Nausea, vomiting and shortness of breath History of Present Illness: 68-year-old female presented to the emergency room with nausea, vomiting and shortness of breath. Patient was recently seen in the emergency room for bronchitis. Patient was sent home with Medrol dose pack, Levaquin and albuterol treatment. Since that time the patient still reports some mild cough with some shortness of breath. Shooter reports some increased nausea, vomiting and congestion. She denies any significant fever, chills. Patient denies any abdominal pain, diarrhea or constipation. Patient came to the ER for further evaluation. In the ER patient had white count of 7.2, hemoglobin 9.3. Sodium 139, potassium 4.0, BUN of 36, creatinine 1.5 with a GFR of 34. Lipase of 1200. Blood sugar 98. Chest x-ray unremarkable. Previous CT scan on 06/07/2018 was unremarkable except increased stool in the colon. No pancreatitis or acute abdominal abnormality noted. Patient was admitted for further evaluation. When I saw the patient ER, she appeared comfortable. Blood pressure stable. Room-air saturations within normal range. She denied any significant abdominal pain improved. Patient appeared tired patient with history of hypertension, diabetes, hypothyroidism. Allergies No Known Drug Allergies Allergy (Verified 12/09/14 22:09) Unknown Home medications list reviewed: Yes Home Medications: Allopurinol [Zyloprim*] 100 mg PO DAILY 04/09/13 Amlodipine Besylate 10 mg PO DAILY 04/09/13 Cyanocobalamin [Vitamin B-12*] 1 ml IJ 15AC 04/09/13 Gabapentin [Neurontin*] 900 mg PO BID 04/09/13 Levothyroxine [Synthroid*] 125 mcg PO [id number] 04/09/13 Lovastatin [Mevacor] 40 mg PO DAILY 04/09/13 Metformin HCl [Glucophage*] 500 mg PO BID 04/09/13 Naproxen [Naprosyn] 500 mg PO BID 04/09/13 Potassium Chloride [K-Dur] 20 meq PO BID 04/09/13 Sumatriptan [Imitrex*] 50 mg PO DAILY PRN 04/09/13 Zolpidem Tartrate 5 mg PO BEDTIME PRN 04/09/13 clonazePAM [Klonopin*] 0.5 mg PO BID #60 tab 04/14/13 Hydrocodone/Acetaminophen [Vicodin 5-325 mg Tablet] 1 each PO Q4H PRN #30 tablet 12/12/14 Ciprofloxacin HCl [Cipro 500 MG Tablet] 500 mg PO BID #10 tablet 12/13/14 Docusate/Senna [Senokot-S*] 2 tab PO DAILY #60 tab 12/14/14 - Past Medical/Surgical History Diabetic: Yes -: Diabetes mellitus type 2, non insulin dependent -: Hypertension -: Hypothyroidism -: Gout -: GERD -: Restless leg syndrome -: Neuropathy -: Hysterectomy, 1977 -: intussusception of intestines -: compression disc fracture -: Carpal tunnel Sx, 1983 -: R. elbow Sx, 1999 -: [place] CATARACT SX 2014 -: colconoscopy date unknown, pt advised Psychosocial/ Personal History: The patient is a . She has 2 children. - Family History Father -: Diabetes, Stroke Mother -: Hypertension, Diabetes, Stroke, Cancer Notes: breast - Social History Smoking Status: Never smoker Alcohol use: No CD- Drugs: No Caffeine use: Yes Place of Residence: Home Review of Systems General: Weakness, As per HPI Eyes: Unremarkable ENT: Nose Congestion, As per HPI Respiratory: Cough, Shortness of Breath, Wheezing, As per HPI Cardiovascular: Unremarkable Gastrointestinal: Nausea, Vomiting, As per HPI Genitourinary: Unremarkable Musculoskeletal: Unremarkable Integumentary: Unremarkable Neurological: Unremarkable Lymphatics: Unremarkable Physical Examination - Physical Exam General: Alert, In no apparent distress, Oriented x3, Cooperative HEENT: Atraumatic, Normocephalic, PERRLA, Other (Dry mucous membranes) Neck: Supple, No Thyromegaly Respiratory: Clear to auscultation bilaterally, Normal air movement Cardiovascular: Normal pulses, Regular rate/rhythm Gastrointestinal: Normal bowel sounds, Soft and benign, Non-distended, No ascites, No tenderness, No masses, No rebound, No guarding Musculoskeletal: No erythema, No tenderness, No warmth Integumentary: No tenderness/swelling, No erythema, No warmth, No cyanosis, Other (Dry skin) Neurological: Normal speech, Normal strength at 5/5 x4 extr, Normal tone, Normal affect - Studies Laboratory Data (last 24 hrs) 06/09/18 09:30: Creatinine 1.50 H 06/09/18 09:30: WBC 7.2, Hgb 9.3 L, Hct 28.5 L, Plt Count 302 06/09/18 09:30: Sodium 139, Potassium 4.0, BUN 36 H, Creatinine 1.50 H, Glucose 98, Total Bilirubin 0.6, AST 12 L, ALT 15, Alkaline Phosphatase 52, Lipase 1203 H Assessment and Plan - Plan Impression: Nausea, vomiting secondary to dehydration with noted acute renal insufficiency Shortness of breath wheezing likely viral bronchitis complicated with possible thrush Hypertension Diabetes mellitus type 2, non-insulin dependent Hypothyroidism GERD Diabetic neuropathy Anemia likely of chronic disease Plan: Nausea, vomiting secondary to dehydration with noted acute renal insufficiency: Patient will be admitted. Will start IV fluids. Will provide medication for nausea. Will continue monitor electrolytes and replace. Will reassess tomorrow. If improved anticipate discharge. Lipase elevated likely related to nausea and vomiting. Will check abdominal ultrasound and abdominal x-ray series. Will start with a clear liquid diet and advance as tolerated. Shortness of breath wheezing likely viral bronchitis complicated with possible thrush: Will discontinue Solu-Medrol and Levaquin. Suspect viral bronchitis. Chest x-ray unremarkable. Will provide nystatin swish and swallow. Will maintain sats above 90%. Will reassess tomorrow. Hypertension: Patient on multiple blood pressure medication. Will provide medication IV as needed. Will hold blood pressure medication due to dehydration. Will continue to reassess. Diabetes mellitus type 2, non-insulin dependent: Will provide sliding scale. Will monitor Accu-Cheks. Hypothyroidism: Will continue with her medication. Will check tsh and free T4. GERD: Will provide PPI. Diabetic neuropathy: Will continue with her medication. Anemia likely of chronic disease: Will check iron and B12 studies. Will monitor hemoglobin. Patient may require workup as an outpatient. Discharge Plan: Home Plan to discharge in: 24 Hours - Advance Directives Does patient have a Living Will: No Does patient have a Durable POA for Healthcare: Yes - Code Status/Comfort Care Code Status Assessed: Yes (Patient full code.) Time Spent Managing Pts Care (In Minutes): 55
[2018-06-09] MEDS: INSULIN -REGULAR HUMAN 50 UNIT/0.5 ML ML SQ SCH ×2 (16:30→21:00)
--- NOTE | 2018-06-09 16:33 | RAD REPORT ---
EXAM DESCRIPTION: RAD - Abdomen Acute Series - 06/09/2018 4:17 pm CLINICAL HISTORY: nausea/vomiting, elevated lipase COMPARISON: Chest Single View dated 06/09/2018; Chest Single View dated 06/07/2018; CHEST SINGLE VIE W dated 12/10/2014; CHEST SINGLE VIEW dated 12/09/2014; Abdomen Pelvis W Contrast dated 06/07/2018 FINDINGS: The lungs are clear. The heart is mildly enlarged in size. A large amount of fecal materia l is retained in the colon. No bowel obstruction or free air. Cholecystectomy clips. IMPRESSION: Large amount of stool is retained in the colon.
[2018-06-09] MEDS: NYSTATIN 500,000 UNIT/5 ML UDC PO SCH ×2 (17:00→21:43)
[2018-06-09 17:51] LABS: Thyroid Stimulating Hormone 6.95 uIU/mL (0.360-3.740)
[2018-06-09] MEDS: NA CHLORIDE 0.9% 1,000 ML IV SCH (18:24)
[2018-06-09 18:30] LABS: Ferritin 3.8 ng/mL (8-388)
[2018-06-09] MEDS: GUAIFENESIN 600 MG SA TAB PO SCH (21:43)
--- NOTE | 2018-06-09 21:48 | RAD REPORT ---
EXAM DESCRIPTION: US - Abdomen Exam Complete - 06/09/2018 9:32 pm CLINICAL HISTORY: Abdominal pain. nausea/vomiting, elevated lipase COMPARISON: Abdomen Pelvis W Contrast dated 06/07/2018 FINDINGS: The liver is normal in size, shape and echotexture. No focal liver lesions or intrahepatic biliary dilatation is seen. Cholecystectomy. Common bile duct is upper limit of normal measuring 8 mm. Both kidneys are normal in size, shape and echotexture. Mild left hydronephrosis. The spleen is normal in size measuring 8 centimeters. The pancreas and aorta are obscured by bowel gas. The visualized aspects of the IVC are grossly normal. IMPRESSION: Cholecystectomy. Mild left hydronephrosis.
[2018-06-09 23:38] VITALS: BMI 29.8
[2018-06-10] MEDS: NA CHLORIDE 0.9% 1,000 ML IV SCH (04:46)
[2018-06-10 05:21] LABS: Absolute Lymphocytes (CBC) 2.3 K/uL (0.7-4.9); Absolute Monocytes 0.7 K/uL (0.1-1.3); Absolute Neutrophil 3.2 K/uL (1.8-8.0); Basophils % 1.2 % (0-1.3); Eosinophils % 2.2 % (0-4.4); Hematocrit 30.8 % (36.0-45.0); MCH 25.8 pg (27.0-35.0); MCV 78.6 fL (80-100); MPV 8.3 fL (7.6-11.3); Monocytes % 11.6 % (3.3-12.3); RBC Red Blood Cell Count 3.92 M/uL (3.86-4.86)
[2018-06-10 05:40] LABS: Albumin 3.4 g/dL (3.4-5.0); Bilirubin Total 0.6 mg/dL (0.2-1.0); Magnesium 1.7 mg/dL (1.8-2.4); Potassium 4.1 mmol/L (3.5-5.1); Protein, Total 6.6 g/dL (6.4-8.2)
[2018-06-10] MEDS ORDERED: MAGNESIUM SULFATE 1 gm IVPB 1 GM/100 ML BAG IV ONE (06:00)
[2018-06-10] MEDS ORDERED: LEVOTHYROXINE SOD 0.025 MG TAB PO SCH (06:30)
[2018-06-10] MEDS ORDERED: LEVOTHYROXINE SOD 0.112 MG TAB PO SCH (06:30)
[2018-06-10] MEDS: INSULIN -REGULAR HUMAN 50 UNIT/0.5 ML ML SQ SCH ×3 (07:30→16:30)
[2018-06-10] MEDS ORDERED: LACTULOSE 20 GM/30 ML UCUP PO PRN (08:01)
[2018-06-10] MEDS ORDERED: CARVEDILOL 6.25 MG TAB PO SCH (09:00)
[2018-06-10] MEDS ORDERED: AMLODIPINE 10 MG TAB PO SCH (09:00)
[2018-06-10] MEDS ORDERED: DULOXETINE 20 MG CAP PO SCH (09:00)
[2018-06-10] MEDS ORDERED: FLUTICASONE 50MCG NASAL SPRAY NAS SCH (09:00)
[2018-06-10] MEDS ORDERED: ENOXAPARIN 40 MG/0.4 ML SQ SCH (09:00)
[2018-06-10] MEDS ORDERED: DOCUSATE NA 100 MG CAP PO SCH (09:00)
[2018-06-10] MEDS ORDERED: PANTOPRAZOLE 40 MG INJ IVP SCH (09:00)
[2018-06-10] MEDS: NYSTATIN 500,000 UNIT/5 ML UDC PO SCH ×2 (09:00→13:00)
[2018-06-10] MEDS: GUAIFENESIN 600 MG SA TAB PO SCH (09:58)
--- NOTE | 2018-06-10 13:22 | RAD REPORT ---
EXAM DESCRIPTION: CT - Head Brain Wo Cont - 06/10/2018 1:07 pm CLINICAL HISTORY: new onset right eye stabbing pain Headache, nausea COMPARISON: HEAD BRAIN W O CONTRAST dated 12/09/2014; HEAD BRAIN W O CONTRAST dated 11/30/2014 TECHNIQUE: All CT scans are performed using dose optimization technique as appropriate and may inclu de automated exposure control or mA/KV adjustment according to patient size. FINDINGS: No intracranial hemorrhage, hydrocephalus or extra-axial fluid collection.No areas of brai n edema or evidence of midline shift. The paranasal sinuses and mastoids are clear. The calvarium is intact. Left vertebral artery is calci fied heavily. IMPRESSION: No acute intracranial abnormality.
[2018-06-10 14:24] VITALS: O2SAT 97
--- NOTE | 2018-06-10 14:53 | P.DS ---
Admission Date: 06/09/18 Discharge Date: 06/10/18 Primary Care Provider: Dr. Joe Disposition: ROUTINE DISCHARGE Discharge Condition: GOOD Reason for Admission: Nausea, vomiting and shortness of breath Consultations: Nephrology-Dr. Christianson Procedures: CT brain: COMPARISON: HEAD BRAIN W O CONTRAST dated 12/09/2014; HEAD BRAIN W O CONTRAST dated 11/30/2014 TECHNIQUE: All CT scans are performed using dose optimization technique as appropriate and may include automated exposure control or mA/KV adjustment according to patient size. FINDINGS: No intracranial hemorrhage, hydrocephalus or extra-axial fluid collection.No areas of brain edema or evidence of midline shift. The paranasal sinuses and mastoids are clear. The calvarium is intact. Left vertebral artery is calcified heavily. IMPRESSION: No acute intracranial abnormality. Xray: COMPARISON: Chest Single View dated 06/09/2018; Chest Single View dated 2017; CHEST SINGLE VIEW dated 12/10/2014; CHEST SINGLE VIEW dated 12/09/2014; Abdomen Pelvis W Contrast dated 06/07/2018 FINDINGS: The lungs are clear. The heart is mildly enlarged in size. A large amount of fecal material is retained in the colon. No bowel obstruction or free air. Cholecystectomy clips. IMPRESSION: Large amount of stool is retained in the colon. ABUS: COMPARISON: Abdomen Pelvis W Contrast dated 06/07/2018 FINDINGS: The liver is normal in size, shape and echotexture. No focal liver lesions or intrahepatic biliary dilatation is seen. Cholecystectomy. Common bile duct is upper limit of normal measuring 8 mm. Both kidneys are normal in size, shape and echotexture. Mild left hydronephrosis. The spleen is normal in size measuring 8 centimeters. The pancreas and aorta are obscured by bowel gas. The visualized aspects of the IVC are grossly normal. IMPRESSION: Cholecystectomy. Mild left hydronephrosis. Medical Problem List: Nausea, vomiting secondary to dehydration with noted acute renal insufficiency and mild hydronephrosis Shortness of breath wheezing likely viral bronchitis complicated with possible thrush Hypertension Diabetes mellitus type 2, non-insulin dependent Hypothyroidism GERD Diabetic neuropathy Anemia likely of chronic disease Right eye pain, resolved likely Migraine headache Anxiety Hyperlipidemia Allergic rhinitis Brief History of Present Illness: 68-year-old female presented to the emergency room with nausea, vomiting and shortness of breath. Patient was recently seen in the emergency room for bronchitis. Patient was sent home with Medrol dose pack, Levaquin and albuterol treatment. Since that time the patient still reports some mild cough with some shortness of breath. Shooter reports some increased nausea, vomiting and congestion. She denies any significant fever, chills. Patient denies any abdominal pain, diarrhea or constipation. Patient came to the ER for further evaluation. In the ER patient had white count of 7.2, hemoglobin 9.3. Sodium 139, potassium 4.0, BUN of 36, creatinine 1.5 with a GFR of 34. Lipase of 1200. Blood sugar 98. Chest x-ray unremarkable. Previous CT scan on 06/07/2018 was unremarkable except increased stool in the colon. No pancreatitis or acute abdominal abnormality noted. Patient was admitted for further evaluation. When I saw the patient ER, she appeared comfortable. Blood pressure stable. Room-air saturations within normal range. She denied any significant abdominal pain improved. Patient appeared tired patient with history of hypertension, diabetes, hypothyroidism. Hospital Course: Patient presented with nausea, vomiting and weakness. Patient found to be dehydrated with acute renal insufficiency. Patient with elevated lipase but no abdominal pain noted. Patient was admitted for further evaluation. Patient continue with IV fluids. Patient able to tolerate her diet. No more nausea or vomiting noted. Abdominal ultrasound showed no significant abnormality except stool. Abdominal ultrasound unremarkable except mild hydronephrosis. Repeat lab showed improvement. At discharge she will continue with a soft GI diet. Recommendation to recheck CMP in 1 week to monitor progress. Patient seen by Nephrology to evaluate for renal insufficiency. No significant changes required. Recommendation is for the patient follow up with nephrology in 1 week further monitor her progress. Patient may continue with stool softener. The patient will be provided medication for constipation-lactulose twice daily as needed. Patient recently had shortness of breath and wheezing likely viral bronchitis. Patient recently on Solu-Medrol and Levaquin. I suspect viral infection. X- ray unremarkable. No need for Solu-Medrol and Levaquin at discharge. Patient may have underlying thrush. At discharge she will continue with nystatin swish and swallow 4 times a day for 7 days. Patient with hypertension. Patient will continue with her medications-Norvasc 5 mg daily, carvedilol 6.25 mg 1 pill twice daily, and losartan/ hydrochlorothiazide 100 mg/25 mg daily. Recommendation is to maintain blood pressures less 150/80. Further adjustment can be done by her PCP. Patient has diabetes mellitus type 2, [id number]. Patient will continue with medication-glipizide 5 mg daily and Glucophage 150 mg 1 pill twice daily. Recommendation is to maintain blood sugars less than 140 fasting and less than 200 after meals. Further adjustment can be done by her PCP. Patient with hypothyroidism. Recommendation to continue with her medication- levothyroxine 137 mcg daily. Recommendation to recheck tsh and free T4 in 4-6 weeks to monitor her progress. Patient has GERD. Patient will continue with her medication-Prilosec 40 mg daily. Patient has diabetic neuropathy. She will continue with her medication- Cymbalta 20 mg daily and tramadol 50 mg 1 pill twice daily as needed for pain. Patient has anxiety. Patient will continue with Klonopin 0.5 mg at bedtime as needed. Patient has hyperlipidemia. She will continue with lovastatin 40 mg daily. Patient with her allergic rhinitis. She will continue with Flonase 1 spray per nostril once daily. Patient had episode of right eye pain. Patient with history of migraines. This resolved very quickly. CT scan of the brain showed no acute abnormality. Recommendation is for the patient follow up with neurology as an outpatient to further monitor and address. Vital Signs/Physical Exam: Temp Pulse Resp BP Pulse Ox 99.3 F 60 18 140/72 95 06/10/18 12:00 06/10/18 12:00 06/10/18 12:00 06/10/18 12:00 06/10/18 12:00 General: Alert, In no apparent distress, Oriented x3, Cooperative HEENT: Atraumatic, Mucous membr. moist/pink Neck: Supple, No Thyromegaly Respiratory: Clear to auscultation bilaterally, Normal air movement Cardiovascular: Normal pulses, Regular rate/rhythm Gastrointestinal: Normal bowel sounds, Soft and benign, Non-distended, No tenderness, No masses, No rebound, No guarding Musculoskeletal: No erythema, No tenderness, No warmth Integumentary: No tenderness/swelling, No erythema, No warmth, No cyanosis Neurological: Normal speech, Normal strength at 5/5 x4 extr, Normal tone, Normal affect Laboratory Data at Discharge: WBC 6.4 K/uL (4.3-10.9) 06/10/18 05:04 Hgb 10.1 g/dL (12.0-15.0) L 06/10/18 05:04 Hct 30.8 % (36.0-45.0) L 06/10/18 05:04 Plt Count 306 K/uL (152-406) 06/10/18 05:04 Sodium 142 mmol/L (136-145) 06/10/18 05:04 Potassium 4.1 mmol/L (3.5-5.1) 06/10/18 05:04 BUN 23 mg/dL (7-18) H 06/10/18 05:04 Creatinine 1.10 mg/dL (0.55-1.3) 06/10/18 05:04 Glucose 103 mg/dL (74-106) 06/10/18 05:04 Magnesium 1.7 mg/dL (1.8-2.4) L 06/10/18 05:04 Total Bilirubin 0.6 mg/dL (0.2-1.0) 06/10/18 05:04 AST 11 U/L (15-37) L 06/10/18 05:04 ALT 17 U/L (12-78) 06/10/18 05:04 Alkaline Phosphatase 58 U/L (45-117) 06/10/18 05:04 Lipase 1203 U/L (73-393) H 06/09/18 09:30 Home Medications: RX: Amlodipine Besylate 5 mg PO DAILY 04/09/13 RX: Lovastatin [Mevacor] 40 mg PO DAILY 04/09/13 RX: Metformin HCl [Glucophage*] 850 mg PO BID 04/09/13 RX: Potassium Chloride [K-Dur] 20 meq PO DAILY 04/09/13 RX: Albuterol Sulfate [Proair Hfa] 1 - 2 puff IH Q4H 06/10/18 RX: Carvedilol [Coreg*] 6.25 mg PO BID 06/10/18 RX: Docusate [Colace Cap*] 100 mg PO DAILY #30 cap 06/10/18 RX: Duloxetine HCl 20 mg PO DAILY 06/10/18 RX: Fluticasone [Flonase 50MCG Nasal [place]*] 1 spray BARB DAILY 06/10/18 RX: Lactulose [Cephulac*] 30 ml PO BID PRN #1 bottle 06/10/18 RX: Levothyroxine Sodium 137 mcg PO DAILY 06/10/18 RX: Losartan/Hydrochlorothiazide [Losartan-Hctz 100-25 mg Tab] 1 tab PO DAILY RX: Nystatin 5 ml PO QID #1 bottle 06/10/18 RX: Omeprazole [Prilosec] 40 mg PO DAILY 06/10/18 RX: clonazePAM [Klonopin*] 0.5 mg PO BEDTIME 06/10/18 RX: glipiZIDE [Glucotrol*] 5 mg PO DAILY 06/10/18 RX: traMADol HCL [Ultram*] 50 mg PO BID 06/10/18 New Medications: RX: Docusate [Colace Cap*] 100 mg PO DAILY #30 cap RX: Lactulose [Cephulac*] 30 ml PO BID PRN #1 bottle PRN Reason: Constipation RX: Nystatin 5 ml PO QID #1 bottle Patient Discharge Instructions: 1. Patient will need to follow up the PCP in 1 week to follow up this hospitalization. 2. Patient presented with nausea, vomiting and weakness. Patient found to be dehydrated with acute renal insufficiency. Patient with elevated lipase but no abdominal pain noted. Patient was admitted for further evaluation. Patient continue with IV fluids. Patient able to tolerate her diet. No more nausea or vomiting noted. Abdominal ultrasound showed no significant abnormality except stool. Abdominal ultrasound unremarkable except mild hydronephrosis. Repeat lab showed improvement. At discharge she will continue with a soft GI diet. Recommendation to recheck CMP in 1 week to monitor progress. Patient seen by Nephrology to evaluate for renal insufficiency. No significant changes required. Recommendation is for the patient follow up with nephrology in 1 week further monitor her progress. Patient may continue with stool softener. The patient will be provided medication for constipation-lactulose twice daily as needed. 3. Patient recently had shortness of breath and wheezing likely viral bronchitis. Patient recently on Solu-Medrol and Levaquin. I suspect viral infection. X-ray unremarkable. No need for Solu-Medrol and Levaquin at discharge. Patient may have underlying thrush. At discharge she will continue with nystatin swish and swallow 4 times a day for 7 days. 4. Patient with hypertension. Patient will continue with her medications-Norvasc 5 mg daily, carvedilol 6.25 mg 1 pill twice daily, and losartan/hydrochlorothiazide 100 mg/ 25 mg daily. Recommendation is to maintain blood pressures less 150/80. Further adjustment can be done by her PCP. 5. Patient has diabetes mellitus type 2, [id number]. Patient will continue with medication-glipizide 5 mg daily and Glucophage 150 mg 1 pill twice daily. Recommendation is to maintain blood sugars less than 140 fasting and less than 200 after meals. Further adjustment can be done by her PCP. 6. Patient with hypothyroidism. Recommendation to continue with her medication-levothyroxine 137 mcg daily. Recommendation to recheck tsh and free T4 in 4-6 weeks to monitor her progress. 7. Patient has GERD. Patient will continue with her medication-Prilosec 40 mg daily. 8. Patient has diabetic neuropathy. She will continue with her medication-Cymbalta 20 mg daily and tramadol 50 mg 1 pill twice daily as needed for pain. 9. Patient has anxiety. Patient will continue with Klonopin 0.5 mg at bedtime as needed. 10. Patient has hyperlipidemia. She will continue with lovastatin 40 mg daily. 11. Patient with her allergic rhinitis. She will continue with Flonase 1 spray per nostril once daily. 12. Patient had episode of right eye pain. Patient with history of migraines. This resolved very quickly. CT scan of the brain showed no acute abnormality. Recommendation is for the patient follow up with neurology as an outpatient to further monitor and address. Diet: ADA Activity: Fall precautions Followup: Juan Pablo Christianson MD [ACTIVE - CAN ADMIT] - 1-2 Weeks (Follow up in 2 weeks, have chemistry lab drawn 2 days prior) Time spent managing pt's care (in minutes): 55
[2018-06-10 17:52] VITALS: BP 170/93; TEMP 99.6
[2018-06-10] MEDS ORDERED: ATORVASTATIN 20 MG TAB PO SCH (21:00)
--- NOTE | 2018-06-10 22:04 | CON ---
Date of Consultation: 06/10/2018 NEPHROLOGY CONSULTATION Additional Consulting Physician: Sumit Arriaza D.O. Reason For Consultation: Elevated BUN and creatinine. History Of Present Illness: This is a pleasant 68-year-old female with significant past medical hist ory of hypertension, diabetes complicated with neuropathy and no retinopathy, hyperlipidemia, osteoar thritis. The patient came to the hospital complaining of some epigastric pain, headache, nausea with out any vomiting for the last couple of days. Apparently, the patient's primary workup showed the pa [place]'s creatinine was above 2 and elevation in the BUN. For that reason, we are being consulted. A ccording to the patient, the patient had been taking ibuprofen 2 tablets every other day for the last few months. The patient denied any exposure to any antibiotic, no IV contrast. No other hospitaliz ation. Over the night, the patient was started on IV hydration, creatinine went down below 1.5. Had good urine output. The patient still complaining of some headache, otherwise no other symptoms. Past Medical History: 1.Hypertension. 2.Hyperlipidemia. 3.Diabetes complicated with neuropathy, no retinopathy. 4.Hypothyroid. Home Medications: 1.Albuterol. 2.Advair. 3.Carvedilol. 4.Glipizide. 5.Amlodipine. 6.Metformin. 7.Lovastatin. 8.KCl. 9.Nystatin. Current Medication In The Hospital: 1.IV fluids. 2.Amlodipine. 3.Clonazepam. 4.Carvedilol. 5.Flonase. 6.Advair. 7.Hydralazine. 8.Insulin. 9.Levothyroxine. 10.Nystatin. 11.Zofran. Surgical History: Noncontributory. Family History: Positive for hypertension and diabetes. Social History: Lives with family. Denies smoking, denies drinking, denies drug abuse. Review of Systems: Head and Neck: No red eye. No ear pain. GI: Has nausea, occasional vomiting. : No polyuria. No dysuria. No hematuria. No foamy urine. VISITOR SERVICES SPECIALIST: No vaginal discharge. Respiratory: No shortness of breath. Cardiovascular: No chest pain. Endocrine: No polydipsia. Skin: No rash. Neuro: Has headache. Musculoskeletal: No joint pain. Physical Examination: Vital Signs: When I saw the patient, blood pressure 140/72, pulse of 60. Chest: Clear to auscultation. Heart: S1, S2 regular. Abdomen: Soft, nontender. Extremities: Trace edema. Neurologic: Alert, oriented x3, non focal. Laboratory Data: WBC 6.4, H and H 10.1/30.8, platelets of 306. Sodium 142, potassium 4.1, bicarb 31 , BUN 23, creatinine 1, GFR of 49, calcium 10, magnesium of 1.7. Assessment And Plan: 1.Acute kidney injury secondary to prerenal superimposed with metformin and nonsteroid etiology, was on the recovery, resolved. 2.I am going to go ahead and get renal ultrasound just to stage the patient. We will send for protei n, creatinine and we will follow up. 3.Hypertension, controlled, optimal. Continue current medication. I would rather avoid any KURTIS inh ibitor for the time being, the patient just recovered. 4.Diabetes. Keep holding metformin given the recent acute kidney injury. We will follow up with e primary. 5.Gastroenteritis, recovered. 6.The patient cleared from the renal standpoint for discharge planning. To follow up in the office in 2 weeks. ALEX Voice ID: [id number] Report ID: [id number]
== END 2018-06-10 18:00 | disposition home or self-care (01) ==
LOC: ER 08:43 → ERHOLD 15:31 → 4TH 17:36
PROVIDERS: ADMIT Family Medicine; ATTEND Family Medicine
DX: E86.0 Dehydration (principal); R11.2 Nausea with vomiting, unspecified; N28.9 Disorder of kidney and ureter, unspecified; R53.1 Weakness; N13.30 Unspecified hydronephrosis; I10 Essential (primary) hypertension; E11.9 Type 2 diabetes mellitus without complications; E03.9 Hypothyroidism, unspecified; E11.40 Type 2 diabetes mellitus with diabetic neuropathy, unspecified; F41.9 Anxiety disorder, unspecified; R79.89 Other specified abnormal findings of blood chemistry; K21.9 Gastro-esophageal reflux disease without esophagitis; E78.5 Hyperlipidemia, unspecified; J30.9 Allergic rhinitis, unspecified
CPT/HCPCS: 36415; 70450; 71045; 74022; 76700; 80048; 80053; 80076; 82607; 82728; 82962 ×6; 83540; 83690; 83735; 84439; 84443; 84466; 84484; 85025 ×2; 93005; 96361; 96374; 96375; 99285; C9113; G0378 ×2; J1650; J2270; J2405; J2765; J3475; J7030 ×2

== ENCOUNTER 2018-06-14 05:44 | Observation (INO) | payer OTHER ==
[2018-06-14] MEDS ORDERED: D50W 25 GM/50 ML SYRINGE IV ONE (06:01)
[2018-06-14] MEDS ORDERED: FENTANYL CITR 100 MCG/2 ML ONE (06:26)
[2018-06-14] MEDS ORDERED: ASPIRIN 81 MG CHEWABLE TABLET ONE (06:26)
[2018-06-14] MEDS ORDERED: ONDANSETRON 4 MG/2 ML VIAL ONE (06:27)
[2018-06-14 06:52] LABS: Protime INR 0.94
[2018-06-14 06:57] LABS: Absolute Lymphocytes (CBC) 1.7 K/uL (0.7-4.9); Absolute Monocytes 0.9 K/uL (0.1-1.3); Absolute Neutrophil 4.4 K/uL (1.8-8.0); Basophils % 0.6 % (0-1.3); Eosinophils % 1.9 % (0-4.4); Hematocrit 28.4 % (36.0-45.0); Lymphocytes % 24.3 % (15.3-44.8); MCV 79.4 fL (80-100); MPV 8.1 fL (7.6-11.3); Monocytes % 12.4 % (3.3-12.3); RBC Red Blood Cell Count 3.58 M/uL (3.86-4.86)
--- NOTE | 2018-06-14 07:00 | ER ---
Nurse's Notes [facility] Name: Linda Menezes Age: 68 yrs Sex: Female : 1950 Arrival Date: 06/14/2018 Time: 05:55 Bed 6 Private MD: Diagnosis: hypoglycemia;abdominal pain;left arm pain Presentation: 06/14 06:03 Presenting complaint: EMS states: they were toned on for report of pt having severe bb left arm pain. Transition of care: patient was not received from another setting of care. Onset of symptoms was June 14, 2018. Risk Assessment: Do you want to hurt yourself or someone else? Patient reports no desire to harm self or others. Initial Sepsis Screen: Does the patient meet any 2 criteria? No. Patient's initial sepsis screen is negative. Does the patient have a suspected source of infection? No. Patient's initial sepsis screen is negative. Care prior to arrival: IV initiated. 20 GA, in the right hand, Glucose check: 56. 06:03 Method Of Arrival: EMS: [facility] bb 06:03 Acuity: ALHAJI 2 bb Triage Assessment: 06:06 General: Appears in no apparent distress. uncomfortable, Behavior is calm, cooperative. bb Pain: Complains of pain in left arm Pain radiates to neck Pain currently is 5 out of 10 on a pain scale. Pain began suddenly, Is continuous. Neuro: Level of Consciousness is awake, alert, obeys commands, Oriented to person, place, time, situation. Cardiovascular: Heart tones S1 S2 present Capillary refill < 3 seconds Patient's skin is warm and dry. Pulses are all present. Edema is absent. Respiratory: Respiratory effort is even, unlabored, Respiratory pattern is regular, Breath sounds are clear bilaterally. GI: Abdomen is non-distended, Bowel sounds present X 4 quads. Abd is soft and non tender X 4 quads. : No signs and/or symptoms were reported regarding the genitourinary system. Derm: Skin is dry, Skin is pale, Skin temperature is cool. Musculoskeletal: Circulation, motion, and sensation intact. Historical: - Allergies: 06:06 NKA; bb - Home Meds: 06:06 amlodipine 5 mg tab 1 tab once daily [Active]; carvedilol 6.25 mg Oral tab 1 tab 2 bb times per day [Active]; clonazepam 0.5 mg Oral tab 1 tab nightly [Active]; duloxetine 20 mg Oral cpDR daily [Active]; fluticasone 50 mcg/actuation nasal spsn 1 spray once daily [Active]; glipizide 5 mg Oral tr24 1 tab once daily [Active]; levothyroxine 137 mcg tab 1 tab once daily [Active]; losartan-hydrochlorothiazide 100-25 mg Oral tab 1 tab once daily [Active]; lovastatin 40 mg Oral tab 1 tab once daily [Active]; metformin 850 mg Oral tab 1 tab 2 times per day [Active]; naproxen 500 mg Oral TbEC 1 tab 2 times per day [Active]; omeprazole 40 mg Oral cpDR 1 cap once daily [Active]; potassium chloride 20 mEq Oral TbTQ 1 tab once daily [Active]; tramadol 50 mg Oral tab [Active]; - PMHx: 06:06 Diabetes - NIDDM; Hypertension; restless leg syndrome; bb - PSHx: 06:06 Hysterectomy; Carpal Tunnel Repair; Cholecystectomy; Appendectomy; right elbow; back; bb - Immunization history:: Adult Immunizations up to date. - Social history:: Smoking status: Patient/guardian denies using tobacco, Patient/guardian denies using alcohol, street drugs. - Ebola Screening: : No symptoms or risks identified at this time. - Family history:: not pertinent. - Hospitalizations: : No recent hospitalization is reported. Screenin:09 Abuse screen: Denies threats or abuse. Nutritional screening: No deficits noted. bb Tuberculosis screening: No symptoms or risk factors identified. Fall Risk None identified. Assessment: 06:09 Reassessment: No changes from previously documented assessment. Dr Monterroso notified pt bb FSBG 46 new orders received pt medicated see SEP. 07:14 Reassessment: Patient appears in no apparent distress at this time. Patient and/or hb family updated on plan of care and expected duration. Pain level reassessed. Patient is alert, oriented x 3, equal unlabored respirations, skin warm/dry/pink. Admission ordered, awaiting room assignment at this time. Vital Signs: 06:01 BP 139 / 99; Pulse 65; Resp 16 S; Temp 97.9(O); Pulse Ox 97% on R/A; Weight 74.84 kg bb (R); Height 5 ft. 4 in. (162.56 cm) (R); Pain 5/10; 06:26 BP 119 / 61; Pulse 64; Resp 14; Pulse Ox 96% on R/A; tl1 06:47 BP 120 / 60; Pulse 63; Resp 16 S; Pulse Ox 94% on R/A; bb 06:01 Body Mass Index 28.32 (74.84 kg, 162.56 cm) bb Gee Coma Score: 06:01 Eye Response: spontaneous(4). Verbal Response: oriented(5). Motor Response: obeys bb commands(6). Total: 15. ED Course: 05:55 Patient arrived in ED. al2 05:59 Bruce Monterroso MD is Attending Physician. wa 06:01 Bailee Holm RN is Primary Nurse. bb 06:04 Triage completed. bb 06:06 Arm band placed on Patient placed in an exam room, on a stretcher, on bus monitor, bb on pulse oximetry. EKG completed in triage. Results shown to MD. 06:09 Patient has correct armband on for positive identification. Bed in low position. Call bb light in reach. Side rails up X2. gambling monitor on. Pulse ox on. NIBP on. Warm blanket given. 06:09 Maintain EMS IV. Site clean \T\ dry. Gauge \T\ site: 20g R H. bb 06:18 X-ray completed. Portable x-ray completed in exam room. Patient tolerated procedure kw well. 06:18 XRAY Chest (1 view) In Process Unspecified. EDMS 06:25 Initial lab(s) drawn, by ED staff, sent to lab. bb 06:46 Lab(s) recollected, by ED staff, sent to lab. bb 06:58 Angela Klein MD is Hospitalizing Provider. wa 08:13 No provider procedures requiring assistance completed. Patient admitted, IV remains in sg place. intact, No redness/swelling at site. Administered Medications: 06:03 Drug: D50W 50 ml Route: IVP; Site: right hand; bb 06:46 Follow up: Response: No adverse reaction; Marked relief of symptoms; Blood sugar is tl1 elevated 06:23 Drug: Zofran 4 mg Route: IVP; Infused Over: 2 mins; Site: right hand; tl1 06:47 Follow up: Response: No adverse reaction; No change in condition tl1 06:48 Follow up: Response: Nausea is decreased tl1 06:23 Drug: Aspirin Chewable Tablet 324 mg Route: PO; tl1 06:48 Follow up: Response: No adverse reaction; No change in condition tl1 06:23 Drug: fentaNYL (PF) 50 mcg Route: IVP; Infused Over: 2 mins; Site: right hand; tl1 06:48 Follow up: Response: No adverse reaction; Marked relief of symptoms; Pain is decreased tl1 08:10 Drug: Magnesium Sulfate 2 grams Route: IVPB; Infused Over: 2 hrs; Site: right hand; sg 08:25 Follow up: Response: Medication administered at discharge.; IV Status: Infusion sg continued upon admission Point of Care Testing: Blood Glucose: 06:01 Blood Glucose: 46 mg/dL; bb 06:46 Blood Glucose: 140 mg/dL; georgina Ranges: Outcome: 06:59 Decision to Hospitalize by Provider. in 08:13 Admitted to Med/surg accompanied by tech, via stretcher, with chart, Report called to sabine Bradford RN 08:13 Condition: stable 08:13 Instructed on discharge instructions, follow up and referral plans. medication usage, safety practices, Demonstrated understanding of instructions, follow-up care. 08:40 Patient left the ED. sg Signatures: Dispatcher [employer] Oscar Brennan RN RN sg Ballard, Brenda, RN RN bb Whitley, Kimberlee kw Lasagna, Tonya, RN RN tl1 Paz Lutz RN RN Bruce Monterroso MD MD wa Love, Mindy al2
--- NOTE | 2018-06-14 07:01 | EDPHYS ---
Physician Documentation [facility] Name: Linda Menezes Age: 68 yrs Sex: Female : 1950 Arrival Date: 06/14/2018 Time: 05:55 Bed 6 Private MD: ED Physician Bruce Monterroso HPI: 06/14 06:24 This 68 yrs old Female presents to ER via EMS with complaints of severe L arm wa pain. 06:24 The patient or guardian reports chest pain that is located primarily in the left arm. wa Onset: just prior to arrival. The pain radiates to left neck. Associated signs and symptoms: Pertinent positives: abdominal pain, vomiting, Pertinent negatives: cough, diaphoresis, dizziness, headache, lower extremity pain. The chest pain is described as aching. Duration: The patient or guardian reports a single episode, that is still ongoing, but improving. Modifying factors: The symptoms are alleviated by nothing. the symptoms are aggravated by nothing. Severity of pain: At its worst the pain was moderate in the emergency department the pain has improved moderately. EMS care prior to arrival includes: noted BG of 59. . The patient has not experienced similar symptoms in the past. The patient has been recently seen by a physician: recently d/c'd by Dr. Arriaza for pancreatitis. states still vomiting at least once per day since she's been home. Historical: - Allergies: 06:06 NKA; bb - Home Meds: 06:06 amlodipine 5 mg tab 1 tab once daily [Active]; carvedilol 6.25 mg Oral tab 1 tab 2 bb times per day [Active]; clonazepam 0.5 mg Oral tab 1 tab nightly [Active]; duloxetine 20 mg Oral cpDR daily [Active]; fluticasone 50 mcg/actuation nasal spsn 1 spray once daily [Active]; glipizide 5 mg Oral tr24 1 tab once daily [Active]; levothyroxine 137 mcg tab 1 tab once daily [Active]; losartan-hydrochlorothiazide 100-25 mg Oral tab 1 tab once daily [Active]; lovastatin 40 mg Oral tab 1 tab once daily [Active]; metformin 850 mg Oral tab 1 tab 2 times per day [Active]; naproxen 500 mg Oral TbEC 1 tab 2 times per day [Active]; omeprazole 40 mg Oral cpDR 1 cap once daily [Active]; potassium chloride 20 mEq Oral TbTQ 1 tab once daily [Active]; tramadol 50 mg Oral tab [Active]; - PMHx: 06:06 Diabetes - NIDDM; Hypertension; restless leg syndrome; bb - PSHx: 06:06 Hysterectomy; Carpal Tunnel Repair; Cholecystectomy; Appendectomy; right elbow; back; bb - Immunization history:: Adult Immunizations up to date. - Social history:: Smoking status: Patient/guardian denies using tobacco, Patient/guardian denies using alcohol, street drugs. - Ebola Screening: : No symptoms or risks identified at this time. - Family history:: not pertinent. - Hospitalizations: : No recent hospitalization is reported. ROS: 06:26 Constitutional: Negative for fever, chills, and weight loss, Eyes: Negative for injury, wa pain, redness, and discharge, ENT: Negative for injury, pain, and discharge, Neck: Negative for injury, pain, and swelling, Abdomen/GI: Negative for abdominal pain, nausea, vomiting, diarrhea, and constipation, Back: Negative for injury and pain, : Negative for injury, bleeding, discharge, and swelling, Skin: Negative for injury, rash, and discoloration, Neuro: Negative for headache, weakness, numbness, tingling, and seizure, Psych: Negative for depression, anxiety, suicide ideation, homicidal ideation, and hallucinations. 06:26 Cardiovascular: Positive for chest pain, Negative for edema, orthopnea, palpitations. 06:26 Respiratory: Negative for cough, dyspnea on exertion, shortness of breath. 06:26 Abdomen/GI: Positive for abdominal pain, nausea, vomiting, of the epigastric area, Negative for diarrhea. 06:26 All other systems are negative. Exam: 06:27 Constitutional: This is a well developed, well nourished patient who is awake, alert, wa and in no acute distress. Head/Face: Normocephalic, atraumatic. Eyes: Pupils equal round and reactive to light, extra-ocular motions intact. Lids and lashes normal. Conjunctiva and sclera are non-icteric and not injected. Cornea within normal limits. Periorbital areas with no swelling, redness, or edema. ENT: Nares patent. No nasal discharge, no septal abnormalities noted. Tympanic membranes are normal and external auditory canals are clear. Oropharynx with no redness, swelling, or masses, exudates, or evidence of obstruction, uvula midline. Mucous membranes moist. Neck: Trachea midline, no thyromegaly or masses palpated, and no cervical lymphadenopathy. Supple, full range of motion without nuchal rigidity, or vertebral point tenderness. No Meningismus. Chest/axilla: Normal chest wall appearance and motion. Nontender with no deformity. No lesions are appreciated. Cardiovascular: Regular rate and rhythm with a normal S1 and S2. No gallops, murmurs, or rubs. Normal PMI, no JVD. No pulse deficits. Respiratory: Lungs have equal breath sounds bilaterally, clear to auscultation and percussion. No rales, rhonchi or wheezes noted. No increased work of breathing, no retractions or nasal flaring. Back: No spinal tenderness. No costovertebral tenderness. Full range of motion. Skin: Warm, dry with normal turgor. Normal color with no rashes, no lesions, and no evidence of cellulitis. MS/ Extremity: Pulses equal, no cyanosis. Neurovascular intact. Full, normal range of motion. Neuro: Awake and alert, GCS 15, oriented to person, place, time, and situation. Cranial nerves II-XII grossly intact. Motor strength 5/5 in all extremities. Sensory grossly intact. Cerebellar exam normal. Normal gait. Psych: Awake, alert, with orientation to person, place and time. Behavior, mood, and affect are within normal limits. 06:27 Abdomen/GI: Inspection: abdomen appears normal, Bowel sounds: normal, in all quadrants, Palpation: soft, in all quadrants, mild abdominal tenderness, in the epigastric area. Vital Signs: 06:01 BP 139 / 99; Pulse 65; Resp 16 S; Temp 97.9(O); Pulse Ox 97% on R/A; Weight 74.84 kg bb (R); Height 5 ft. 4 in. (162.56 cm) (R); Pain 5/10; 06:26 BP 119 / 61; Pulse 64; Resp 14; Pulse Ox 96% on R/A; tl1 06:47 BP 120 / 60; Pulse 63; Resp 16 S; Pulse Ox 94% on R/A; bb 06:01 Body Mass Index 28.32 (74.84 kg, 162.56 cm) bb Gee Coma Score: 06:01 Eye Response: spontaneous(4). Verbal Response: oriented(5). Motor Response: obeys bb commands(6). Total: 15. MDM: 06:07 Patient medically screened. nh 06:28 Differential diagnosis: noted hypoglycemic, BG 50. D50 given. pt taking sulfonyurea. nh will continue to monitor. work p to r/o ACS due to L arm pain that radiates to L neck. Data reviewed: vital signs, nurses notes, lab test result(s), EKG. Test interpretation: by ED physician or midlevel provider: EKG: HR 64. no ischemic-type abnml noted . 06:58 Admission orders: after a detailed discussion of the patient's condition and case, the nh admit orders are written by me. 06/14 05:59 Order name: Basic Metabolic Panel; Complete Time: 10:05 nh 06/14 05:59 Order name: CBC with Diff; Complete Time: 10: nh 06/14 05:59 Order name: Hepatic Function; Complete Time: 10: nh 06/14 05:59 Order name: Lipase; Complete Time: 10: nh 06/14 06:00 Order name: Magnesium; Complete Time: 10: nh 06/14 06:00 Order name: NT PRO-BNP; Complete Time: 10: nh 06/14 06:00 Order name: PT-INR; Complete Time: 07:00 nh 06/14 06:00 Order name: Troponin (emerg Dept Use Only); Complete Time: 10:05 nh 06/14 07:37 Order name: Glucose, Ancillary Testing; Complete Time: 10: [facility] 06/14 07:37 Order name: Glucose, Ancillary Testing; Complete Time: 10:05 [facility] 06/14 08:04 Order name: Vitamin B12 Level [facility] 06/14 08:04 Order name: Vitamin B12 Level [facility] 06/14 08:04 Order name: Folic Acid, (Folate) [facility] 06/14 08:04 Order name: Folic Acid, (Folate) [facility] 06/14 05:59 Order name: IV Saline Lock; Complete Time: 06:25 nh 06/14 05:59 Order name: Labs collected and sent; Complete Time: 06:25 nh 06/14 06:00 Order name: XRAY Chest (1 view); Complete Time: 10: nh 06/14 06:00 Order name: EKG; Complete Time: 06:01 nh 06/14 06:00 Order name: Cardiac monitoring; Complete Time: 06:24 nh 06/14 06:00 Order name: EKG - Nurse/Tech; Complete Time: 06:25 nh 06/14 06:00 Order name: O2 Per Protocol; Complete Time: 06:25 nh 06/14 08:04 Order name: Iron [facility] 06/14 08:04 Order name: Iron EDMS 06/14 08:04 Order name: Transferrin Sat/Iron Binding ED[facility] 06/14 08:04 Order name: Transferrin Sat/Iron Binding ED[facility] 06/14 06:00 Order name: O2 Sat Monitoring; Complete Time: 06:25 nh Administered Medications: 06:03 Drug: D50W 50 ml Route: IVP; Site: right hand; bb 06:46 Follow up: Response: No adverse reaction; Marked relief of symptoms; Blood sugar is tl1 elevated 06:23 Drug: Zofran 4 mg Route: IVP; Infused Over: 2 mins; Site: right hand; tl1 06:47 Follow up: Response: No adverse reaction; No change in condition tl1 06:48 Follow up: Response: Nausea is decreased tl1 06:23 Drug: Aspirin Chewable Tablet 324 mg Route: PO; tl1 06:48 Follow up: Response: No adverse reaction; No change in condition tl1 06:23 Drug: fentaNYL (PF) 50 mcg Route: IVP; Infused Over: 2 mins; Site: right hand; tl1 06:48 Follow up: Response: No adverse reaction; Marked relief of symptoms; Pain is decreased tl1 08:10 Drug: Magnesium Sulfate 2 grams Route: IVPB; Infused Over: 2 hrs; Site: right hand; sg 08:25 Follow up: Response: Medication administered at discharge.; IV Status: Infusion sg continued upon admission Point of Care Testing: Blood Glucose: 06:01 Blood Glucose: 46 mg/dL; bb 06:46 Blood Glucose: 140 mg/dL; bb Ranges: Critical Glucose Levels:Adult <50 mg/dl or >400 mg/dl <40 mg/dl or >180 mg/dl Disposition: 06/14/18 06:59 Hospitalization ordered by Angela Klein for Observation. Preliminary diagnosis are hypoglycemia, abdominal pain, left arm pain. - Bed requested for Telemetry/MedSurg (observation). - Status is Observation. sg - Condition is Stable. - Problem is new. - Symptoms have improved. UTI on Admission? No Signatures: Dispatcher [employer] Dena Lin, RN Oscar Zheng, RN RN sg Bailee Holm, RN RN bb Amari Garcia MD MD rn Lasagna, Tonya, RN RN tl1 Bruce Monterroso MD MD wa Corrections: (The following items were deleted from the chart) 07:44 06:59 Hospitalization Ordered by Angela Klein MD for Observation. Preliminary dw diagnosis is hypoglycemia; abdominal pain; left arm pain. Bed requested for Telemetry/MedSurg (observation). Status is Observation. Condition is Stable. Problem is new. Symptoms have improved. UTI on Admission? No. nh 08:40 07:44 06/14/2018 06:59 Hospitalization Ordered by Angela Klein MD for Observation. sg Preliminary diagnosis is hypoglycemia; abdominal pain; left arm pain. Bed requested for Telemetry/MedSurg (observation). Status is Observation. Condition is Stable. Problem is new. Symptoms have improved. UTI on Admission? No. dw
[2018-06-14 07:14] LABS: ALT/SGPT 13 U/L (12-78); AST/SGOT 9 U/L (15-37); Albumin 2.9 g/dL (3.4-5.0); Alkaline Phosphatase 49 U/L (45-117); BUN Blood Urea Nitrogen 16 mg/dL (7-18); Bicarbonate 23 mmol/L (21-32); Bilirubin Direct 0.2 mg/dL (0-0.2); Bilirubin Total 0.5 mg/dL (0.2-1.0); Glucose Level 193 mg/dL (74-106); Lipase 378 U/L (73-393); NT PRO-BNP 122 pg/mL (<125); Potassium 4.5 mmol/L (3.5-5.1); Protein, Total 5.8 g/dL (6.4-8.2); Sodium Level 138 mmol/L (136-145); Troponin (Emerg Dept Use Only) < 0.02 ng/mL (0.0-0.045)
[2018-06-14 07:16] LABS: Magnesium 1.3 mg/dL (1.8-2.4)
--- NOTE | 2018-06-14 07:16 | RAD REPORT ---
EXAM DESCRIPTION: RAD - Chest Single View - 06/14/2018 6:21 am CLINICAL HISTORY: Chest pain radiating to the left arm COMPARISON: June 09 TECHNIQUE: AP portable chest image was obtained 0606 hours . FINDINGS: No focal mass, consolidation or failure finding. Interstitial markings are prominent but n ot clearly different from the comparison. Heart and vasculature are normal. No measurable pleural eff usion and no pneumothorax. No acute bony abnormality seen. No acute aortic findings suspected. IMPRESSION: No acute cardiopulmonary process. No significant interval change.
--- NOTE | 2018-06-14 08:03 | EKG ---
Test Date: 2018-06-14 Test Time: 06:03:38 [place] Sampler: MEASUREMENT RESULTS: Intervals: Rate: 64 WA: 172 QRSD: 88 QT: 416 QTc: 429 [place]: P: 9 WA: 172 QRS: 3 T: 18 INTERPRETIVE STATEMENTS: Normal sinus rhythm Normal ECG Compared to ECG 06/09/2018 11:36:47 No significant changes Electronically Signed On 06-14-18 08:03:03 [employer] by Xavier Pineda
[2018-06-14] MEDS ORDERED: ONDANSETRON 4 MG/2 ML VIAL IV PRN (09:14)
[2018-06-14] MEDS ORDERED: ACETAMINOPHEN 500 MG TAB PO PRN (09:14)
[2018-06-14] MEDS: NA CHLORIDE 0.9% 1,000 ML IV SCH ×2 (09:31→23:56)
[2018-06-14 10:38] VITALS: BMI 28.5
[2018-06-14 11:57] LABS: Urine Appearance CLEAR; Urine Bilirubin NEGATIVE (NEG); Urine Blood NEGATIVE (NEG); Urine Color YELLOW; Urine Glucose NEGATIVE (NEG); Urine Protein NEGATIVE (NEG); Urine Specific Gravity 1.015 (1.005-1.030); Urine Urobilinogen 0.2 mg/dL (0.2-1.0)
[2018-06-14 12:14] LABS: Urine Microscopic Reflex NO UMIC
[2018-06-14] MEDS: Magnesium Sulfate 2gm IVPB 2 G/50 ML BAG IV SCH ×2 (13:11→17:10)
[2018-06-14] MEDS ORDERED: DOCUSATE NA 100 MG CAP PO PRN (13:19)
--- NOTE | 2018-06-14 16:20 | P.HP ---
Certification for Inpatient Patient admitted to: Observation With expected LOS: <2 Midnights Patient will require the following post-hospital care: None Practitioner: I am a practitioner with admitting privileges, knowledge of patient current condition, hospital course, and medical plan of care. Services: Services provided to patient in accordance with Admission requirements found in Title 42 Section 412.3 of the Code of Federal Regulations Patient History Date of Service: 06/14/18 Reason for admission: N/V/ abdominal disconfort History of Present Illness: Patient is a 68-year-old female who came to the hospital with nausea and vomiting. She was not feeling well for many days. She was recently in the hospital and treated for what she thought with pancreatitis but there was no studies indicating this. She did appear to have some abdominal pain and was advised to follow up as an outpatient with GI. At home she has become hypoglycemic her blood sugars were 60. I spoke with the ER physician around 630 and he wanted me to admit her at as labs were still pending. I came down to evaluate the patient and she stated she was still nauseated. Exam did not reveal any significant abnormalities or worrisome findings. She looked comfortable but she was still nauseated. Because of the hypoglycemia plan is to admit her. Labs are still pending so we will wait for labs before we get her admitted to the hospital as we will need to disposition her according to the the rest of her diagnostic studies which are pending at this time. 7:40 am I reviewed labs myself and they were resulted. Patient's lab workup shows a critically low magnesium level. We will need to replace this . I have placed orders in the computer. Otherwise her lab data is fairly stable. We will admit her to telemetry for observation. Allergies No Known Drug Allergies Allergy (Verified 06/14/18 10:24) Unknown Home Medications: Amlodipine Besylate 5 mg PO DAILY 04/09/13 Lovastatin [Mevacor] 40 mg PO DAILY 04/09/13 Metformin HCl [Glucophage*] 850 mg PO BID 04/09/13 Potassium Chloride [K-Dur] 20 meq PO BID 04/09/13 Albuterol Sulfate [Proair Hfa] 1 - 2 puff IH Q4H PRN 06/10/18 Carvedilol [Coreg*] 6.25 mg PO BID 06/10/18 Duloxetine HCl 20 mg PO BEDTIME 06/10/18 Fluticasone [Flonase 50MCG Nasal [place]*] 1 spray BARB DAILY 06/10/18 Lactulose [Cephulac*] 30 ml PO BID PRN #1 bottle 06/10/18 Levothyroxine Sodium 137 mcg PO [id number] 06/10/18 Losartan/Hydrochlorothiazide [Losartan-Hctz 100-25 mg Tab] 1 tab PO DAILY Nystatin 5 ml PO QID #1 bottle 06/10/18 Omeprazole [Prilosec] 40 mg PO [id number] 06/10/18 clonazePAM [Klonopin*] 0.5 mg PO BID 06/10/18 glipiZIDE [Glucotrol*] 5 mg PO DAILY 06/10/18 traMADol HCL [Ultram*] 50 mg PO BID 06/10/18 Docusate [Colace Cap*] 100 mg PO DAILY PRN 06/14/18 - Past Medical/Surgical History Has patient received pneumonia vaccine in the past: Yes Diabetic: Yes -: Diabetes mellitus type 2, non insulin dependent -: Hypertension -: Hypothyroidism -: Gout -: GERD -: Restless leg syndrome -: Neuropathy -: RESTLESS LEGS SYNDROME -: bronchitis (november 20, 2014) -: right eye lid weakness -: Hysterectomy, 1977 -: intussusception of intestines -: compression disc fracture -: Carpal tunnel Sx, 1983 -: R. elbow Sx, 1999 -: [place] CATARACT SX 2014 -: colonoscopy date unknown, pt advised -: cholecystectomy Psychosocial/ Personal History: The patient is a . She has 2 children. - Family History Father Medical History: Hypertension, Other (see notes) Notes: Parkinson's Mother Medical History: Hypertension, Diabetes, Stroke, Cancer Notes: breast - Social History Smoking Status: Never smoker Alcohol use: No CD- Drugs: No Caffeine use: Yes Place of Residence: Home Review of Systems 10-point ROS is otherwise unremarkable Physical Examination - Vital Signs Temperature: 98.1 F Blood Pressure: 105/61 Pulse: 65 Respirations: 18 Pulse Ox (%): 98 - Physical Exam General: Alert, In no apparent distress, Oriented x3 HEENT: Atraumatic, PERRLA, Mucous membr. moist/pink, EOMI, Sclerae nonicteric Neck: Supple, 2+ carotid pulse no bruit, No LAD, Without JVD or thyroid abnormality Respiratory: Clear to auscultation bilaterally, Normal air movement Cardiovascular: Regular rate/rhythm, Normal S1 S2, No murmurs Gastrointestinal: Normal bowel sounds, Soft and benign, Non-distended, Tenderness Musculoskeletal: No clubbing, No tenderness Integumentary: No rashes Neurological: Normal gait, Normal speech, Normal tone, Sensation intact, Cranial nerves 3-12 intact, Normal affect, Abnormal strength Lymphatics: No axilla or inguinal lymphadenopathy - Studies Laboratory Data (last 24 hrs) 06/14/18 06:46: WBC 7.2, Hgb 9.3 L, Hct 28.4 L, Plt Count 328 06/14/18 06:10: PT 11.1, INR 0.94 06/14/18 06:10: Sodium 138, Potassium 4.5, BUN 16, Creatinine 1.20, Glucose 193 H, Magnesium 1.3 L*, Total Bilirubin 0.5, AST 9 L, ALT 13, Alkaline Phosphatase 49, Lipase 378 Assessment & Plan - Problems (Diagnosis) (1) Hypoglycemia Current Visit: Yes Status: Acute (2) Hypomagnesemia Current Visit: Yes Status: Acute (3) Diabetes mellitus Onset Date: 12/10/14 Current Visit: No Status: Acute (4) Hypertension Onset Date: 06/12/18 Current Visit: No Status: Acute (5) SOB (shortness of breath) Onset Date: 06/12/18 Current Visit: No Status: Acute (6) Vomiting Onset Date: 12/10/14 Current Visit: No Status: Acute (7) Weakness Onset Date: 12/10/14 Current Visit: No Status: Acute - Plan Plan: 1. IV hydration 2. Replace magnesium- will need telemetry bed 3. Monitor blood sugars closely 4. May need to start D5 water 5. A1c level check as a.m. 6. strict blood pressure and blood sugar control 7. GI consultation if symptoms continue to worsen 8. GI/DVT prophylaxis - Advance Directives Does patient have a Living Will: No Does patient have a Durable POA for Healthcare: No
[2018-06-14] MEDS: TRAMADOL HCL 50 MG TAB PO SCH (19:12)
[2018-06-14] MEDS: MORPHINE 2 MG/ML SYR IV PRN (20:36)
[2018-06-14] MEDS: clonazePAM 0.5 MG TAB PO SCH (20:37)
[2018-06-14] MEDS: CARVEDILOL 6.25 MG TAB PO SCH (20:38)
[2018-06-14] MEDS: LACTULOSE 20 GM/30 ML UCUP PO PRN (20:39)
[2018-06-14] MEDS ORDERED: DULOXETINE 20 MG CAP PO SCH (21:00)
[2018-06-14] MEDS ORDERED: ATORVASTATIN 20 MG TAB PO SCH (21:00)
[2018-06-15] MEDS ORDERED: PANTOPRAZOLE 40MG TABLET PO SCH (06:00)
[2018-06-15] MEDS ORDERED: HOME MED 1 EA UNK (Levothyroxine Sodium [Levothyroxine Sodium] 137 MCG) PO SCH (06:00)
[2018-06-15 06:07] LABS: Absolute Lymphocytes (CBC) 1.6 K/uL (0.7-4.9); Absolute Monocytes 0.8 K/uL (0.1-1.3); Absolute Neutrophil 3.3 K/uL (1.8-8.0); Basophils % 0.8 % (0-1.3); Eosinophils % 1.7 % (0-4.4); Hematocrit 25.6 % (36.0-45.0); Lymphocytes % 27.4 % (15.3-44.8); MPV 8.4 fL (7.6-11.3); Monocytes % 13.6 % (3.3-12.3); RBC Red Blood Cell Count 3.23 M/uL (3.86-4.86)
[2018-06-15] MEDS: MORPHINE 2 MG/ML SYR IV PRN (06:09)
[2018-06-15] MEDS ORDERED: LEVOTHYROXINE SOD 0.112 MG TAB PO SCH (06:30)
[2018-06-15] MEDS ORDERED: LEVOTHYROXINE SOD 0.025 MG TAB PO SCH (06:30)
[2018-06-15 07:09] LABS: ALT/SGPT 10 U/L (12-78); AST/SGOT 6 U/L (15-37); Albumin 2.6 g/dL (3.4-5.0); Alkaline Phosphatase 50 U/L (45-117); BUN Blood Urea Nitrogen 15 mg/dL (7-18); Bicarbonate 27 mmol/L (21-32); Bilirubin Total 0.4 mg/dL (0.2-1.0); Folic Acid, (Folate) > 20.0 ng/mL (3.1-17.5); Glucose Level 138 mg/dL (74-106); HDL Cholesterol 39 mg/dL (40-60); LDL Cholesterol, Calculated 64 (<130); Potassium 4.3 mmol/L (3.5-5.1); Protein, Total 5.4 g/dL (6.4-8.2); Sodium Level 141 mmol/L (136-145); Transferrin 247 mg/dL (200-360)
[2018-06-15] MEDS ORDERED: LOSARTAN/HCTZ 50-12.5 PO SCH (09:00)
[2018-06-15] MEDS ORDERED: AMLODIPINE 5 MG TAB PO SCH (09:00)
[2018-06-15] MEDS: TRAMADOL HCL 50 MG TAB PO SCH (09:09)
[2018-06-15] MEDS: clonazePAM 0.5 MG TAB PO SCH (09:10)
[2018-06-15] MEDS: CARVEDILOL 6.25 MG TAB PO SCH (09:55)
--- NOTE | 2018-06-15 11:44 | RAD REPORT ---
EXAM DESCRIPTION: CT - Head Brain Wo Cont - 06/15/2018 11:33 am CLINICAL HISTORY: neck and arm pain Headache, drowsiness COMPARISON: Head Brain Wo Cont dated 06/10/2018; HEAD BRAIN W O CONTRAST dated 12/09/2014 TECHNIQUE: All CT scans are performed using dose optimization technique as appropriate and may inclu de automated exposure control or mA/KV adjustment according to patient size. FINDINGS: No intracranial hemorrhage, hydrocephalus or extra-axial fluid collection.No areas of brai n edema or evidence of midline shift. The paranasal sinuses and mastoids are clear. The calvarium is intact. The left vertebral artery is a therosclerotic. IMPRESSION: No acute intracranial abnormality.
[2018-06-15] MEDS: NA CHLORIDE 0.9% 1,000 ML IV SCH (11:47)
[2018-06-15] MEDS: LACTULOSE 20 GM/30 ML UCUP PO PRN (11:54)
--- NOTE | 2018-06-15 15:55 | P.PN ---
Subjective Date of Service: 06/15/18 Chief Complaint: N/V/ abdominal disconfort Patient seen and examined at bedside with RN. Chart reviewed. Case discussed with physical therapy and occupational therapy. Patient is currently pending recommendations from PTOT. Has been complaining of not able go to get out of bed and feeling very weak. Also complains of having some abdominal pain. Review of Systems 10-point ROS is otherwise unremarkable Physical Examination - Vital Signs Temperature: 98.3 F Blood Pressure: 132/64 Pulse: 68 Respirations: 18 Pulse Ox (%): 92 - Physical Exam General: Alert, In no apparent distress HEENT: Atraumatic, PERRLA, EOMI Neck: Supple, JVD not distended Respiratory: Clear to auscultation bilaterally, Normal air movement Cardiovascular: Regular rate/rhythm, Normal S1 S2 Gastrointestinal: Normal bowel sounds, No tenderness Musculoskeletal: No tenderness Integumentary: No rashes Neurological: Normal speech, Normal tone, Normal affect Lymphatics: No axilla or inguinal lymphadenopathy - Studies Medications List Reviewed: Yes Assessment And Plan - Current Problems (Diagnosis) (1) Hypoglycemia Onset Date: 06/15/18 Current Visit: Yes Status: Acute Plan: Now resolved -continue on mild sliding scale at this time. (2) Hypomagnesemia Onset Date: 06/15/18 Current Visit: Yes Status: Acute Plan: Now resolved -continue to monitor closely (3) Weakness Onset Date: 06/15/18 Current Visit: Yes Status: Acute Plan: Patient still complaining of having generalized weakness. PT and OT consult is pending at this time. Once patient is able to work with physical therapy and occupation therapy can discharge home safely with home health PT versus prison facility placement. Will follow up with physical therapy regarding their recommendations (4) Diabetes mellitus Onset Date: 12/10/14 Current Visit: No Status: Chronic Qualifiers: Diabetes mellitus type: type 2 Diabetes mellitus group home insulin use: without group home use Diabetes mellitus complication status: without complication Qualified Code(s): E11.9 - Type 2 diabetes mellitus without complications (5) Hypertension Onset Date: 06/12/18 Current Visit: No Status: Chronic Qualifiers: Hypertension type: essential hypertension Qualified Code(s): I10 - Essential (primary) hypertension (6) Hypothyroidism Onset Date: 06/12/18 Current Visit: No Status: Chronic Qualifiers: Hypothyroidism type: acquired Qualified Code(s): E03.9 - Hypothyroidism, unspecified - Plan Patient is currently complaining of having some generalized weakness and inability to get out of bed most likely secondary to electrolyte abnormality of hypo magnesium and hypo glycemia. However will get a head CT to rule out any acute abnormality. Patient also is awaiting PT OT consult. After getting recommendations for PTOT patient will be rate to be discharged home with either home health versus prison facility Discharge Plan: Home Plan to discharge in: 48 Hours - Code Status/Comfort Care Code Status Assessed: Yes Critical Care: No
--- NOTE | 2018-06-15 16:59 | P.DS ---
Admission Date: 06/14/18 Discharge Date: 06/15/18 Disposition: ROUTINE DISCHARGE Discharge Condition: GOOD Reason for Admission: N/V/ abdominal disconfort - Problems (1) Hypoglycemia Onset Date: 06/15/18 Current Visit: Yes Status: Resolved (2) Hypomagnesemia Onset Date: 06/15/18 Current Visit: Yes Status: Resolved (3) Weakness Onset Date: 06/15/18 Current Visit: Yes Status: Acute (4) Diabetes mellitus Onset Date: 12/10/14 Current Visit: No Status: Chronic Qualifiers: Diabetes mellitus type: type 2 Diabetes mellitus skilled nursing insulin use: without fireworks maker use Diabetes mellitus complication status: without complication Qualified Code(s): E11.9 - Type 2 diabetes mellitus without complications (5) Hypertension Onset Date: 06/12/18 Current Visit: No Status: Chronic Qualifiers: Hypertension type: essential hypertension Qualified Code(s): I10 - Essential (primary) hypertension (6) Hypothyroidism Onset Date: 06/12/18 Current Visit: No Status: Chronic Qualifiers: Hypothyroidism type: acquired Qualified Code(s): E03.9 - Hypothyroidism, unspecified Brief History of Present Illness: Patient is a 68-year-old female who came to the hospital with nausea and vomiting. She was not feeling well for many days. She was recently in the hospital and treated for what she thought with pancreatitis but there was no studies indicating this. She did appear to have some abdominal pain and was advised to follow up as an outpatient with GI. At home she has become hypoglycemic her blood sugars were 60. I spoke with the ER physician around 630 and he wanted me to admit her at as labs were still pending. I came down to evaluate the patient and she stated she was still nauseated. Exam did not reveal any significant abnormalities or worrisome findings. She looked comfortable but she was still nauseated. Because of the hypoglycemia plan is to admit her. Labs are still pending so we will wait for labs before we get her admitted to the hospital as we will need to disposition her according to the the rest of her diagnostic studies which are pending at this time. Hospital Course: Overall patient remained stable while here in the hospital The patient was initially admitted to the hospital for hypoglycemia and hypomania cm along with generalized weakness. Patient was placed on IV fluids here in the hospital along with magnesium was replaced. Patient was having nausea vomiting which is probably why her electrolytes was abnormal on admission. Patient was tolerating her diet here nausea vomiting did resolve here is well. Patient then worked with physical therapy and was discharged home under stable condition. Patient had extensive workup done here to rule out any other acute abnormality including the head CT which was negative for any acute abnormality is well. Vital Signs/Physical Exam: Temp Pulse Resp BP Pulse Ox 98.3 F 68 18 132/64 92 06/15/18 15:55 06/15/18 15:55 06/15/18 15:55 06/15/18 15:55 06/15/18 15:55 General: Alert, In no apparent distress HEENT: Atraumatic, PERRLA, EOMI Neck: Supple, JVD not distended Respiratory: Clear to auscultation bilaterally, Normal air movement Cardiovascular: Regular rate/rhythm, Normal S1 S2 Gastrointestinal: Normal bowel sounds, No tenderness Musculoskeletal: No tenderness Integumentary: No rashes Neurological: Normal speech, Normal tone, Normal affect Lymphatics: No axilla or inguinal lymphadenopathy Laboratory Data at Discharge: WBC 5.8 K/uL (4.3-10.9) D 06/15/18 05:34 Hgb 8.4 g/dL (12.0-15.0) L 06/15/18 05:34 Hct 25.6 % (36.0-45.0) L 06/15/18 05:34 Plt Count 276 K/uL (152-406) 06/15/18 05:34 PT 11.1 SECONDS (9.5-12.5) 06/14/18 06:10 INR 0.94 06/14/18 06:10 Sodium 141 mmol/L (136-145) 06/15/18 05:34 Potassium 4.3 mmol/L (3.5-5.1) 06/15/18 05:34 BUN 15 mg/dL (7-18) 06/15/18 05:34 Creatinine 1.00 mg/dL (0.55-1.3) 06/15/18 05:34 Glucose 138 mg/dL (74-106) H 06/15/18 05:34 Magnesium 2.3 mg/dL (1.8-2.4) D 06/14/18 16:15 Total Bilirubin 0.4 mg/dL (0.2-1.0) 06/15/18 05:34 AST 6 U/L (15-37) L 06/15/18 05:34 ALT 10 U/L (12-78) L 06/15/18 05:34 Alkaline Phosphatase 50 U/L (45-117) 06/15/18 05:34 Troponin I < 0.02 ng/mL (0.0-0.045) 06/14/18 16:15 Triglycerides Cancelled 06/15/18 06:00 Cholesterol Cancelled 06/15/18 06:00 HDL Cholesterol Cancelled 06/15/18 06:00 Cholesterol/HDL Ratio Cancelled 06/15/18 06:00 Lipase 378 U/L (73-393) 06/14/18 06:10 Home Medications: Amlodipine Besylate 5 mg PO DAILY 04/09/13 Lovastatin [Mevacor] 40 mg PO DAILY 04/09/13 Metformin HCl [Glucophage*] 850 mg PO BID 04/09/13 Potassium Chloride [K-Dur] 20 meq PO BID 04/09/13 Albuterol Sulfate [Proair Hfa] 1 - 2 puff IH Q4H PRN 06/10/18 Carvedilol [Coreg*] 6.25 mg PO BID 06/10/18 Duloxetine HCl 20 mg PO BEDTIME 06/10/18 Fluticasone [Flonase 50MCG Nasal [place]*] 1 spray BARB DAILY 06/10/18 Lactulose [Cephulac*] 30 ml PO BID PRN #1 bottle 06/10/18 Levothyroxine Sodium 137 mcg PO [id number] 06/10/18 Losartan/Hydrochlorothiazide [Losartan-Hctz 100-25 mg Tab] 1 tab PO DAILY Nystatin 5 ml PO QID #1 bottle 06/10/18 Omeprazole [Prilosec] 40 mg PO [id number] 06/10/18 clonazePAM [Klonopin*] 0.5 mg PO BID 06/10/18 glipiZIDE [Glucotrol*] 5 mg PO DAILY 06/10/18 traMADol HCL [Ultram*] 50 mg PO BID 06/10/18 Docusate [Colace Cap*] 100 mg PO DAILY PRN 06/14/18 Diet: Regular Activity: Ad natalya Followup: Bruce Joe MD [Primary Care Provider] - 1 Week
[2018-06-15 17:22] VITALS: BP 133/66; TEMP 97.8
[2018-06-15 17:46] VITALS: O2SAT 96
== END 2018-06-15 17:33 | disposition home health service (06) ==
LOC: ER 05:44 → 2ND 08:19
PROVIDERS: ADMIT Hospitalist; ATTEND Hospitalist
DX: E11.649 Type 2 diabetes mellitus with hypoglycemia without coma (principal); E83.42 Hypomagnesemia; R53.1 Weakness; E03.9 Hypothyroidism, unspecified; K21.9 Gastro-esophageal reflux disease without esophagitis; G25.81 Restless legs syndrome; I10 Essential (primary) hypertension; R11.10 Vomiting, unspecified
CPT/HCPCS: 36415 ×2; 70450; 71045; 80048; 80053; 80061; 80076; 81003; 82607; 82746; 82962 ×9; 83036; 83540; 83690; 83735 ×3; 83880; 84466; 84484 ×3; 85025 ×2; 85610; 93005; 96374; 96375; 97162; 97166; 99285; G0378 ×2; J2270 ×2; J2405; J3010; J3475 ×2; J7030 ×4

== ENCOUNTER 2020-05-31 03:08 | Inpatient (IN) | payer OTHER, SELFPAY ==
--- OUTSIDE RECORDS SUMMARY | 2020-05-31 03:10 | XMS REPORT | Continuity of Care Document ---
:1950 Author Organization [facility] t Address [address] [place] [address] [address] [place] [address] Care Team Providers Name Role Phone Unavailable Unavailable Unavailable Problems This patient has no known problems. Allergies, Adverse Reactions, Alerts This patient has no known allergies or adverse reactions. Medications This patient has no known medications. Procedures This patient has no known procedures. Results This patient has no known results.
[2020-05-31] MEDS ORDERED: ONDANSETRON 4 MG/2 ML VIAL ONE (03:41)
[2020-05-31] MEDS ORDERED: MORPHINE 2 MG/ML SYR ONE ×5 (03:41→19:59)
[2020-05-31] MEDS ORDERED: FAMOTIDINE 20 MG/2 ML VIAL IV ONE (03:41)
[2020-05-31] MEDS ORDERED: NA CHLORIDE 0.9% 1,000 ML ONE (03:41)
[2020-05-31 03:45] LABS: Protime INR 0.97
[2020-05-31 03:46] LABS: Absolute Lymphocytes (CBC) 0.9 K/uL (0.7-4.9); Basophils % 0.3 % (0-1.3); Hematocrit 33.4 % (36.0-45.0); Lymphocytes % 7.8 % (15.3-44.8); MPV 8.5 fL (7.6-11.3); RBC Red Blood Cell Count 3.94 M/uL (3.86-4.86)
[2020-05-31 04:09] LABS: Albumin 3.5 g/dL (3.4-5.0); Bilirubin Direct 0.2 mg/dL (0-0.2); Bilirubin Total 0.9 mg/dL (0.2-1.0); Potassium 3.7 mmol/L (3.5-5.1); Protein, Total 6.9 g/dL (6.4-8.2)
[2020-05-31 04:11] LABS: Magnesium 1.4 mg/dL (1.8-2.4); Troponin (Emerg Dept Use Only) 5.12 ng/mL (0.0-0.045)
[2020-05-31] MEDS ORDERED: POTASSIUM 25 MEQ EFFERV TAB ONE (04:31)
[2020-05-31] MEDS ORDERED: Magnesium Sulfate 2gm IVPB 2 G/50 ML BAG IV ONE (04:32)
--- NOTE | 2020-05-31 04:47 | EDPHYS ---
Physician Documentation [facility] Name: Linda Menezes Age: 70 yrs Sex: Female : 1950 Arrival Date: 05/31/2020 Time: 03:10 Bed 8 Private MD: ED Physician Paddy Figueroa HPI: 05/31 03:24 This 70 yrs old Female presents to ER via EMS with complaints of Nausea. mh7 Vomiting. Diarrhea. 03:25 The patient presents to the emergency department with nausea, that is moderate, mh7 vomiting, that is intermittent, diarrhea, that is intermittent. Onset: The symptoms/episode began/occurred yesterday. Possible causes: unknown. The symptoms are aggravated by nothing. The symptoms are alleviated by nothing. Associated signs and symptoms: Pertinent positives: Chest Pain, Pertinent negatives: abdominal pain, anorexia, belching, constipation, dysuria, fever, flatulence, GI bleeding, hematuria, vaginal discharge. Severity of symptoms: At their worst the symptoms were moderate last night, in the emergency department the symptoms are unchanged. 04:47 Patient reports having nausea, vomiting, and diarrhea then started having chest pain.. mh7 Historical: - Allergies: 03:10 NKA; rv - Home Meds: 03:24 Lomotil oral oral 1 tab 4x a day PRN [Active]; Klonopin Oral 1 tab 2 times per day rr5 [Active]; glipizide 5 mg Oral tr24 1 tab once daily [Active]; alendronate sodium-cholecalciferol(vitamin D3) oral oral 1 tab once wkly [Active]; duloxetine 20 mg Oral cpDR daily [Active]; omeprazole 40 mg Oral cpDR 1 cap once daily [Active]; losartan-hydrochlorothiazide 100-25 mg Oral tab 1 tab once daily [Active]; tramadol 50 mg Oral tab [Active]; amlodipine 5 mg tab 1 tab once daily [Active]; levothyroxine 137 mcg tab 1 tab once daily [Active]; metformin 850 mg Oral tab 1 tab 2 times per day [Active]; carvedilol 6.25 mg Oral tab 1 tab 2 times per day [Active]; lovastatin 40 mg Oral tab 1 tab once daily [Active]; - PMHx: 03:10 Diabetes - NIDDM; Hypertension; restless leg syndrome; rv 03:24 neuropathy; chronic back pain; intussusception intestine; rr5 - PSHx: 03:24 Hysterectomy; rr5 - Immunization history:: Adult Immunizations up to date. - Social history:: Smoking status: unknown. ROS: 03:25 Constitutional: Negative for fever, chills, and weight loss, Eyes: Negative for injury, mh7 pain, redness, and discharge, ENT: Negative for injury, pain, and discharge, Neck: Negative for injury, pain, and swelling, Respiratory: Negative for shortness of breath, cough, wheezing, and pleuritic chest pain, Back: Negative for injury and pain, : Negative for injury, bleeding, discharge, and swelling, MS/Extremity: Negative for injury and deformity, Skin: Negative for injury, rash, and discoloration, Neuro: Negative for headache, weakness, numbness, tingling, and seizure, Psych: Negative for depression, anxiety, suicide ideation, homicidal ideation, and hallucinations, Allergy/Immunology: Negative for hives, rash, and allergies, Endocrine: Negative for neck swelling, polydipsia, polyuria, polyphagia, and marked weight changes, Hematologic/Lymphatic: Negative for swollen nodes, abnormal bleeding, and unusual bruising. Exam: 03:25 Head/Face: Normocephalic, atraumatic. Eyes: Pupils equal round and reactive to light, mh7 extra-ocular motions intact. Lids and lashes normal. Conjunctiva and sclera are non-icteric and not injected. Cornea within normal limits. Periorbital areas with no swelling, redness, or edema. Neck: Trachea midline, no thyromegaly or masses palpated, and no cervical lymphadenopathy. Supple, full range of motion without nuchal rigidity, or vertebral point tenderness. No Meningismus. Chest/axilla: Normal chest wall appearance and motion. Nontender with no deformity. No lesions are appreciated. Cardiovascular: Regular rate and rhythm with a normal S1 and S2. No gallops, murmurs, or rubs. Normal PMI, no JVD. No pulse deficits. Respiratory: Lungs have equal breath sounds bilaterally, clear to auscultation and percussion. No rales, rhonchi or wheezes noted. No increased work of breathing, no retractions or nasal flaring. 03:25 Back: No spinal tenderness. No costovertebral tenderness. Full range of motion. Skin: Warm, dry with normal turgor. Normal color with no rashes, no lesions, and no evidence of cellulitis. MS/ Extremity: Pulses equal, no cyanosis. Neurovascular intact. Full, normal range of motion. Neuro: Awake and alert, GCS 15, oriented to person, place, time, and situation. Cranial nerves II-XII grossly intact. Motor strength 5/5 in all extremities. Sensory grossly intact. Cerebellar exam normal. Normal gait. Psych: Awake, alert, with orientation to person, place and time. Behavior, mood, and affect are within normal limits. 03:25 Constitutional: The patient appears in no acute distress, alert, awake, uncomfortable. 03:25 Abdomen/GI: Inspection: abdomen appears normal, Bowel sounds: normal, in all quadrants, Palpation: mild abdominal tenderness, in the epigastric area, right upper quadrant and left upper quadrant, Rectal exam: the exam is deferred, because of patient request, Indicators: McBurney's point is not tender, Lee's sign is negative, Rovsing's sign is negative, Obturator sign is negative, Psoas sign is negative, Liver: no appreciated palpable abnormalities, Hernia: not appreciated. 04:47 ECG was reviewed by the Attending Physician. [facility] Vital Signs: 03:12 BP 147 / 77; Pulse 76; Resp 17; Temp 98.7; Pulse Ox 98% ; Weight 113.4 kg; Height 5 ft. rr5 4 in. (162.56 cm); Pain 3/10; 03:58 BP 129 / 77; Pulse 69; Resp 16; Pulse Ox 99% ; rr5 04:20 BP 127 / 72; Pulse 73; Resp 16; Pulse Ox 98% ; Pain 8/10; rr5 05:15 BP 117 / 72; Pulse 78; Resp 19; Pulse Ox 99% ; Pain 7/10; rr5 06:10 BP 106 / 63; Pulse 73; Resp 16; Pulse Ox 96% ; rr5 07:30 BP 132 / 65; Pulse 72; Resp 18 S; Temp 98.0(TE); Pulse Ox 99% on R/A; aa5 08:04 BP 122 / 60; Pulse 74; Resp 16 S; Pulse Ox 98% on R/A; aa5 03:12 Body Mass Index 42.91 (113.40 kg, 162.56 cm) rr5 MDM: 04:41 Differential diagnosis: gastritis, pancreatitis, Chest Pain. Acute [place]. Data reviewed: [facility] vital signs, nurses notes, EMS record, lab test result(s), cardiac enzymes, CBC, drug level(s), electrolytes, urinalysis, EKG, radiologic studies, plain films. Data interpreted: Pulse oximetry: on room air is 99 %. Interpretation: normal. Counseling: I had a detailed discussion with the patient and/or guardian regarding: the historical points, exam findings, and any diagnostic results supporting the discharge/admit diagnosis, lab results, radiology results, the need for further work-up and treatment in the hospital. Response to treatment: the patient's symptoms have markedly improved after treatment. 04:47 Patient medically screened. [facility] 04:47 ED course: EMS gave Aspirin en route to ED.. [facility] 05/31 03:23 Order name: Basic Metabolic Panel; Complete Time: 04:17 [facility] 05/31 03:23 Order name: CBC with Diff; Complete Time: 04:11 [facility] 05/31 03:23 Order name: LFT's; Complete Time: 04:17 [facility] 05/31 03:23 Order name: Magnesium; Complete Time: 04:17 [facility] 05/31 03:23 Order name: NT PRO-BNP; Complete Time: 04:17 [facility] 05/31 03:23 Order name: PT-INR; Complete Time: 04:11 [facility] 05/31 03:23 Order name: Troponin (emerg Dept Use Only); Complete Time: 04:17 [facility] 05/31 03:23 Order name: XRAY Chest (1 view) [facility] 05/31 03:23 Order name: Lipase; Complete Time: 04:17 [facility] 05/31 04:18 Order name: Ketone, Serum; Complete Time: 05:04 [facility] 05/31 05:26 Order name: CT Chest For PE Angio [facility] 05/31 06:38 Order name: SARS-COV-2 RT PCR [facility] 05/31 07:23 Order name: Troponin (emerg Dept Use Only) [facility] 05/31 03:23 Order name: EKG; Complete Time: 03:24 [facility] 05/31 03:23 Order name: Cardiac monitoring; Complete Time: 03:25 [facility] 05/31 03:23 Order name: EKG - Nurse/Tech; Complete Time: 03:25 05/31 03:23 Order name: IV Saline Lock; Complete Time: 03:05/31 03:23 Order name: Labs collected and sent; Complete Time: 03:05/31 03:23 Order name: O2 Per Protocol; Complete Time: 03:25 05/31 03:23 Order name: O2 Sat Monitoring; Complete Time: 03:05/31 03:23 Order name: Urine Dipstick-Ancillary (obtain specimen); Complete Time: 03:24 mh EC:47 Rate is 71 beats/min. Rhythm is regular, Normal Sinus Rhythm. QRS Flippin is Normal. FL mh7 interval is normal. QRS interval is normal. QT interval is normal. Q waves are Present in leads I, aVL. T waves are Normal. No ST changes noted. Clinical impression: Abnormal EKG without significant change. Administered Medications: 03:25 Drug: NS 0.9% 1000 ml Route: IV; Rate: 1000 ml; Site: right wrist; rr5 05:20 Follow up: Response: No adverse reaction; IV Status: Completed infusion; IV Intake: rr5 1000ml 03:25 Drug: Zofran (Ondansetron) 4 mg Route: IVP; Site: right wrist; rr5 04:26 Follow up: Response: No adverse reaction; Marked relief of symptoms rr5 03:27 Drug: Pepcid 20 mg Route: IVP; Site: right wrist; rr5 04:26 Follow up: Response: No adverse reaction rr5 03:29 Drug: morphine 2 mg Route: IVP; Site: right wrist; rr5 04:26 Drug: morphine 2 mg {Note: rass 0.} Route: IVP; Site: right wrist; rr5 05:20 Follow up: Response: No adverse reaction; Pain is unchanged, physician notified; RASS: rr5 Alert and Calm (0) 04:27 Drug: Magnesium Sulfate 2 grams Route: IVPB; Infused Over: 2 hrs; Site: right wrist; rr5 05:24 Follow up: Response: No adverse reaction; IV Status: Completed infusion; IV Intake: [id number] 04:27 Drug: Potassium Effervescent Tablet 50 mEq Route: PO; rr5 05:24 Follow up: Response: No adverse reaction rr5 05:23 Drug: morphine 2 mg {Note: rass 0.} Route: IVP; Site: right wrist; rr5 06:20 Follow up: Response: No adverse reaction; Pain is decreased; RASS: Alert and Calm (0) rr5 07:23 CANCELLED (Physician Discretion): morphine 4 mg IVP once; RASS on ADMIN: Combtv4, Very aa5 Agttd3, Agttd2, Rstlss1, AlertClm0, Drwsy-1, Lt Sdtn-2, Mod Sdtn-3, Dp Sdtn-4, UnArsble-5 07:40 Drug: morphine 2 mg Route: IVP; Site: right wrist; aa5 08:00 Follow up: Response: No adverse reaction aa5 Disposition: 05/31/20 04:47 Hospitalization ordered by Scott Rodríguez for Inpatient Admission. Preliminary diagnosis is Non-ST elevation (NSTEMI) myocardial infarction. - Bed requested for Telemetry/MedSurg (Inpatient). - Status is Inpatient Admission. aa5 - Condition is Stable. - Problem is new. - Symptoms have improved. Signatures: Dispatcher [employer] EDWA Verena Buck RN RN Edie Berkowitz RN RN aa5 Trevin Smith PA PA jr8 Deon Mcbride RN Ronan Morales RN RN rr5 Paddy Figueroa MD MD 7 Corrections: (The following items were deleted from the chart) 04:47 04:23 CORONAVIRUS+MR.LAB.BRZ ordered. [facility] EDWA 05:21 04:47 Hospitalization Ordered by Angela Klein MD for Inpatient Admission. Preliminary [facility] diagnosis is Non-ST elevation (NSTEMI) myocardial infarction. Bed requested for Telemetry/MedSurg (Inpatient). Status is Inpatient Admission. Condition is Stable. Problem is new. Symptoms have improved. 7 05:58 05:21 05/31/2020 04:47 Hospitalization Ordered by Scott Rodríguez for Inpatient jr8 Admission. Preliminary diagnosis is Non-ST elevation (NSTEMI) myocardial infarction. Bed requested for Telemetry/MedSurg (Inpatient). Status is Inpatient Admission. Condition is Stable. Problem is new. Symptoms have improved. 7 05:58 05:58 05/31/2020 04:47 Hospitalization Ordered by Angela Klein MD for Inpatient jr8 Admission. Preliminary diagnosis is Non-ST elevation (NSTEMI) myocardial infarction. Bed requested for Telemetry/MedSurg (Inpatient). Status is Inpatient Admission. Condition is Stable. Problem is new. Symptoms have improved. jr8 06:47 05:58 05/31/2020 04:47 Hospitalization Ordered by Scott Rodríguez for Inpatient mw Admission. Preliminary diagnosis is Non-ST elevation (NSTEMI) myocardial infarction. Bed requested for Telemetry/MedSurg (Inpatient). Status is Inpatient Admission. Condition is Stable. Problem is new. Symptoms have improved. jr8 07:23 07:23 morphine 4 mg IVP once; RASS on ADMIN: Combtv4, Very Agttd3, Agttd2, Rstlss1, aa5 AlertClm0, Drwsy-1, Lt Sdtn-2, Mod Sdtn-3, Dp Sdtn-4, UnArsble-5 ordered. aa5 08:35 06:47 05/31/2020 04:47 Hospitalization Ordered by Scott Rodríguez for Inpatient aa5 Admission. Preliminary diagnosis is Non-ST elevation (NSTEMI) myocardial infarction. Bed requested for Telemetry/MedSurg (Inpatient). Status is Inpatient Admission. Condition is Stable. Problem is new. Symptoms have improved. mw
--- NOTE | 2020-05-31 04:47 | ER ---
Nurse's Notes [facility] Name: Linda Menezes Age: 70 yrs Sex: Female : 1950 Arrival Date: 05/31/2020 Time: 03:10 Bed 8 Private MD: Diagnosis: Non-ST elevation (NSTEMI) myocardial infarction Presentation: 05/31 03:12 Coronavirus screen: Client denies travel out of the [place] in the last 14 days. diarrhea, rv Client presents with at least one sign or symptom that may indicate coronavirus-19. Standard/surgical mask placed on the client. Provider contacted for isolation considerations. Ebola Screen: No symptoms or risks identified at this time. Initial Sepsis Screen: Does the patient meet any 2 criteria? No. Patient's initial sepsis screen is negative. Does the patient have a suspected source of infection? No. Patient's initial sepsis screen is negative. Risk Assessment: Do you want to hurt yourself or someone else? Patient reports no desire to harm self or others. 03:12 Acuity: ALHAJI 3 rv 03:12 Method Of Arrival: EMS: [facility] rv 03:12 Chief complaint: EMS states: complaint of nausea, vomiting, diarrhea and chest pain rr5 started yesterday now it gets worst. 03:12 Onset of symptoms was May 30, 2020. rr5 03:12 Care prior to arrival: Medication(s) given: ASA, 325 mg, zofran 4 mg, IV initiated. 20 rr5 GA, in the right wrist, Glucose check: 308. Triage Assessment: 03:12 General: Appears comfortable, Behavior is calm, cooperative. rv Historical: - Allergies: 03:10 NKA; rv - Home Meds: 03:24 Lomotil oral oral 1 tab 4x a day PRN [Active]; Klonopin Oral 1 tab 2 times per day rr5 [Active]; glipizide 5 mg Oral tr24 1 tab once daily [Active]; alendronate sodium-cholecalciferol(vitamin D3) oral oral 1 tab once wkly [Active]; duloxetine 20 mg Oral cpDR daily [Active]; omeprazole 40 mg Oral cpDR 1 cap once daily [Active]; losartan-hydrochlorothiazide 100-25 mg Oral tab 1 tab once daily [Active]; tramadol 50 mg Oral tab [Active]; amlodipine 5 mg tab 1 tab once daily [Active]; levothyroxine 137 mcg tab 1 tab once daily [Active]; metformin 850 mg Oral tab 1 tab 2 times per day [Active]; carvedilol 6.25 mg Oral tab 1 tab 2 times per day [Active]; lovastatin 40 mg Oral tab 1 tab once daily [Active]; - PMHx: 03:10 Diabetes - NIDDM; Hypertension; restless leg syndrome; rv 03:24 neuropathy; chronic back pain; intussusception intestine; rr5 - PSHx: 03:24 Hysterectomy; rr5 - Immunization history:: Adult Immunizations up to date. - Social history:: Smoking status: unknown. Screenin:11 Abuse screen: Denies threats or abuse. Denies injuries from another. Nutritional rv screening: No deficits noted. Tuberculosis screening: No symptoms or risk factors identified. Fall Risk None identified. Assessment: 03:15 General: Appears in no apparent distress. comfortable, Behavior is calm, cooperative, rr5 appropriate for age. 03:15 Pain: Complains of pain in chest Pain does not radiate. Pain currently is 3 out of 10 rr5 on a pain scale. Quality of pain is described as aching, Pain began gradually, Is intermittent. Neuro: Level of Consciousness is awake, alert, obeys commands, Oriented to person, place, time, situation. Cardiovascular: Reports chest pain, Capillary refill < 3 seconds Patient's skin is warm and dry. Respiratory: Airway is patent Respiratory effort is even, unlabored, Respiratory pattern is regular, symmetrical. GI: Abdomen is round non-distended, Reports diarrhea, nausea, vomiting. : No signs and/or symptoms were reported regarding the genitourinary system. EENT: No signs and/or symptoms were reported regarding the EENT system. Derm: Skin is intact, is healthy with good turgor, Skin temperature is warm. Musculoskeletal: Circulation, motion, and sensation intact. Capillary refill < 3 seconds. 04:00 Reassessment: Patient appears in no apparent distress at this time. Patient is alert, rr5 oriented x 3, equal unlabored respirations, skin warm/dry/pink. awaiting for results Patient states symptoms have improved. 04:28 Reassessment: Patient appears in no apparent distress at this time. complaint chest rr5 came back pains core 8/10. ED provider aware with order made and carried out. troponin and magnesium result relayed to ED provider. 05:05 Reassessment: aamir edmonds family member [phone], [id number] (home). rr5 05:26 Reassessment: Patient appears in no apparent distress at this time. Patient is alert, rr5 oriented x 3, equal unlabored respirations, skin warm/dry/pink. hospitalist at bedside assessing the patient. informed for the chest pain with order made and carried out. patient agreed for the admission. 05:32 Reassessment: provider canceled protonix order patient received pepcid. rr5 05:40 Reassessment: Checked on status of COVID swab, machine initially gave an "invalid error rv code", test has to be re-run per Verena in the lab. It is just being re-run at this time. 06:20 Reassessment: Patient appears in no apparent distress at this time. Patient is alert, rr5 oriented x 3, equal unlabored respirations, skin warm/dry/pink. send to CT PE angio assisted by CTstaff. 06:30 Reassessment: Patient appears in no apparent distress at this time. back from CT scan. rr5 07:10 Reassessment: Pt resting in bed with eyes closed, respirations even and unlabored, skin aa5 is pink/warm/dry. Pt easy to arouse to verbal stimuli, NSR on monitor. Pt currently rates chest pain 8/10 on a pain scale. Pt notified of wait time to be transferred to room 411. . 08:03 Reassessment: Report given to SENG Sumner (4th floor nurse). aa5 08:19 Reassessment: Patient is alert, oriented x 3, equal unlabored respirations, skin aa5 warm/dry/pink. Vital Signs: 03:12 BP 147 / 77; Pulse 76; Resp 17; Temp 98.7; Pulse Ox 98% ; Weight 113.4 kg; Height 5 ft. rr5 4 in. (162.56 cm); Pain 3/10; 03:58 BP 129 / 77; Pulse 69; Resp 16; Pulse Ox 99% ; rr5 04:20 BP 127 / 72; Pulse 73; Resp 16; Pulse Ox 98% ; Pain 8/10; rr5 05:15 BP 117 / 72; Pulse 78; Resp 19; Pulse Ox 99% ; Pain 7/10; rr5 06:10 BP 106 / 63; Pulse 73; Resp 16; Pulse Ox 96% ; rr5 07:30 BP 132 / 65; Pulse 72; Resp 18 S; Temp 98.0(TE); Pulse Ox 99% on R/A; aa5 08:04 BP 122 / 60; Pulse 74; Resp 16 S; Pulse Ox 98% on R/A; aa5 03:12 Body Mass Index 42.91 (113.40 kg, 162.56 cm) rr5 ED Course: 03:10 Patient arrived in ED. rv 03:11 Arm band placed on right wrist. Patient placed in the treatment room, on a stretcher, rv Patient notified of wait time. 03:11 Maintain EMS IV. Dressing intact. Good blood return noted. Site clean \\T\\ dry. Gauge \\T\\ rr 5 site: G20 Right wrist. 03:12 Triage completed. rv 03:12 Patient maintains SpO2 saturation greater than 95% on room air. rv 03:13 Paddy Figueroa MD is Attending Physician. mh7 03:13 Patient has correct armband on for positive identification. Bed in low position. Call rv light in reach. Side rails up X 1. retort press operator on. Pulse ox on. NIBP on. 03:15 Ronan Tolentino, SENG is Primary Nurse. rr5 03:16 No provider procedures requiring assistance completed. EKG done, by ED staff, reviewed rr5 by Paddy Figueroa MD. 03:44 XRAY Chest (1 view) In Process Unspecified. EDMS 04:36 covid. rr5 04:46 Angela Klein MD is Hospitalizing Provider. mh7 05:21 Hospitalizing Provider role handed off by Angela Klein MD mh7 05:21 Scott Rodríguez is Hospitalizing Provider. mh7 05:58 Angela Klein MD is Hospitalizing Provider. jr8 05:58 Scott Rodríguez is Hospitalizing Provider. jr8 07:11 Patient admitted, IV remains in place. intact, No redness/swelling at site. rr5 07:49 Repeat troponin drawn and sent to lab. aa5 Administered Medications: 03:25 Drug: NS 0.9% 1000 ml Route: IV; Rate: 1000 ml; Site: right wrist; rr5 05:20 Follow up: Response: No adverse reaction; IV Status: Completed infusion; IV Intake: rr5 1000ml 03:25 Drug: Zofran (Ondansetron) 4 mg Route: IVP; Site: right wrist; rr5 04:26 Follow up: Response: No adverse reaction; Marked relief of symptoms rr5 03:27 Drug: Pepcid 20 mg Route: IVP; Site: right wrist; rr5 04:26 Follow up: Response: No adverse reaction rr5 03:29 Drug: morphine 2 mg Route: IVP; Site: right wrist; rr5 04:26 Drug: morphine 2 mg {Note: rass 0.} Route: IVP; Site: right wrist; rr5 05:20 Follow up: Response: No adverse reaction; Pain is unchanged, physician notified; RASS: rr5 Alert and Calm (0) 04:27 Drug: Magnesium Sulfate 2 grams Route: IVPB; Infused Over: 2 hrs; Site: right wrist; rr5 05:24 Follow up: Response: No adverse reaction; IV Status: Completed infusion; IV Intake: 03rcrj5 04:27 Drug: Potassium Effervescent Tablet 50 mEq Route: PO; rr5 05:24 Follow up: Response: No adverse reaction rr5 05:23 Drug: morphine 2 mg {Note: rass 0.} Route: IVP; Site: right wrist; rr5 06:20 Follow up: Response: No adverse reaction; Pain is decreased; RASS: Alert and Calm (0) rr5 07:23 CANCELLED (Physician Discretion): morphine 4 mg IVP once; RASS on ADMIN: Combtv4, Very aa5 Agttd3, Agttd2, Rstlss1, AlertClm0, Drwsy-1, Lt Sdtn-2, Mod Sdtn-3, Dp Sdtn-4, UnArsble-5 07:40 Drug: morphine 2 mg Route: IVP; Site: right wrist; aa5 08:00 Follow up: Response: No adverse reaction aa5 Intake: 05:20 IV: 1000ml; Total: 1000ml. rr5 05:24 IV: 50ml; Total: 1050ml. rr5 Outcome: 04:47 Decision to Hospitalize by Provider. mh7 08:19 Admitted to Tele accompanied by nurse, via wheelchair, with chart, Report called to aa5 SENG Sumner 08:19 Condition: stable 08:19 Instructed on the need for admit, Demonstrated understanding of instructions. 08:20 Patient left the ED. aa5 Signatures: Dispatcher [employer] Edie Bishop RN RN aa5 Trevin Smith PA PA jr8 Deon Mcbride RN RN rv Ronan Tolentino RN RN rr5 Paddy Figueroa MD MD 7 Corrections: (The following items were deleted from the chart) 03:17 03:11 Maintain EMS IV. Dressing intact. Good blood return noted. Site clean \\T\\ dry. rr5 Gauge \\T\\ site: G20 RAC. rv 03:36 03:12 Coronavirus screen: Client denies travel out of the [place] in the last 14 days. rv rr5 08:35 08:35 Patient left the ED. aa5 aa5
[2020-05-31] MEDS ORDERED: PANTOPRAZOLE 40 MG INJ ONE (05:29)
--- NOTE | 2020-05-31 06:29 | P.HP ---
Certification for Inpatient Patient admitted to: Inpatient With expected LOS: >2 Midnights Patient will require the following post-hospital care: None Practitioner: I am a practitioner with admitting privileges, knowledge of patient current condition, hospital course, and medical plan of care. Services: Services provided to patient in accordance with Admission requirements found in Title 42 Section 412.3 of the Code of Federal Regulations <Irena Smithshua - Last Filed: 05/31/20 06:20> Patient History Date of Service: 05/31/20 Primary Care Provider: Dr. Joe Reason for admission: NSTEMI History of Present Illness: This is a 70 y/o F patient that presented to the ED this morning after having onset of n/v with chest pain that started this past evening. Stated that she took some medication this evening for n/v and went to bed. Woke up with CP. At that point came to the ED for further evaluation. Patient with history of HTN, NIDDM, hypothyroidism, osteoporosis, and hyperlipidemia. Patient was evaluated and worked up in the ED. Patient without acute EKG or CXR findings. Lab work showed hypomagnesmia at 1.4 and a moderately elevated troponin of 5.12. Patient referred to hospitalist team at that point for admission. Home medications list reviewed: Yes - Past Medical/Surgical History Diabetic: Yes -: Diabetes mellitus type 2, non insulin dependent -: Hypertension -: Hypothyroidism -: Gout -: GERD -: Restless leg syndrome -: Neuropathy -: RESTLESS LEGS SYNDROME -: bronchitis (november 20, 2014) -: right eye lid weakness -: Hysterectomy, 1977 -: intussusception of intestines -: compression disc fracture -: Carpal tunnel Sx, 1983 -: R. elbow Sx, 1999 -: [place] CATARACT SX 2014 -: colonoscopy date unknown, pt advised -: cholecystectomy Psychosocial/ Personal History: The patient is a . She has 2 children. - Family History Father -: Hypertension, Other (see notes) Notes: Parkinson's Mother -: Hypertension, Diabetes, Stroke, Cancer Notes: breast - Social History Smoking Status: Never smoker Smoking therapy provided: No Alcohol use: No CD- Drugs: No Caffeine use: Yes Place of Residence: Home <Abner Smith - Last Filed: 05/31/20 06:20> Date of Service: 05/31/20 <kelsey helms - Last Filed: 05/31/20 11:01> Allergies No Known Drug Allergies Allergy (Verified 06/14/18 10:24) Unknown Home Medications: Alendronate Sodium [Fosamax] 1 tab PO SEECOM 05/31/20 Amlodipine Besylate [Norvasc] 1 tab PO DAILY 05/31/20 Diphenox/Atropine [Lomotil*] 1 tab PO QID PRN 05/31/20 Duloxetine [Cymbalta *] 1 cap PO DAILY 05/31/20 Levothyroxine [Synthroid*] 1 tab PO [id number] 05/31/20 Losartan/Hydrochlorothiazide [Hyzaar 100-25 Tablet] 1 tab PO DAILY 05/31/20 Lovastatin [Altoprev] 1 tab PO DAILY 05/31/20 Metformin HCl [Glucophage*] 1 tab PO BIDWM 05/31/20 Omeprazole 40 mg PO DAILY 05/31/20 Tramadol HCl [Ultram] 1 tab PO Q6H PRN 05/31/20 carvediloL [Carvedilol] 1 tab PO BID* 05/31/20 clonazePAM [Klonopin*] 1 tab PO BID 05/31/20 glipiZIDE [Glucotrol*] 1 tab PO BID 05/31/20 Review of Systems General: Unremarkable Eyes: Unremarkable ENT: Unremarkable Respiratory: Unremarkable Cardiovascular: Chest Pain Gastrointestinal: Nausea, Vomiting Genitourinary: Unremarkable Musculoskeletal: Unremarkable Integumentary: Unremarkable Neurological: Unremarkable Lymphatics: Unremarkable <Abner Smith - Last Filed: 05/31/20 06:20> Physical Examination - Vital Signs Temperature: 98.7 F Blood Pressure: 147/77 Pulse: 76 Respirations: 18 Pulse Ox (%): 98 (RA) - Physical Exam General: Alert, In no apparent distress, Oriented x3 HEENT: Normocephalic, PERRLA, Mucous membr. moist/pink, EOMI Neck: Supple, 2+ carotid pulse no bruit, JVD not distended, No Thyromegaly Respiratory: Clear to auscultation bilaterally, Normal air movement Cardiovascular: No edema, Normal pulses, Regular rate/rhythm, Normal S1 S2, No gallops, Systolic murmur (best heard over aortic region ) Capillary refill: <2 Seconds Gastrointestinal: Normal bowel sounds, Soft and benign, Non-distended, No ascites, No tenderness, No masses, No rebound, No guarding Musculoskeletal: No clubbing, No swelling, No contractures, No erythema, No tenderness, No warmth Integumentary: No rashes, No breakdown, No significant lesion, No tenderness/swelling, No erythema, No warmth, No cyanosis Neurological: Normal speech, Normal strength at 5/5 x4 extr, Normal tone, Sensation intact, Cranial nerves 3-12 intact, Normal affect Lymphatics: No axilla or inguinal lymphadenopathy - Studies Laboratory Data (last 24 hrs) 05/31/20 03:15: PT 11.4, INR 0.97 05/31/20 03:15: WBC 11.5 H, Hgb 10.8 L, Hct 33.4 L, Plt Count 330 05/31/20 03:15: Sodium 138, Potassium 3.7, BUN 22 H, Creatinine 0.88, Glucose 317 H, Magnesium 1.4 L* D, Total Bilirubin 0.9, AST 27, ALT 22, Alkaline Phosphatase 45, Lipase 206 <Abner Smith - Last Filed: 05/31/20 06:20> - Studies Laboratory Data (last 24 hrs) 05/31/20 03:15: PT 11.4, INR 0.97 05/31/20 03:15: WBC 11.5 H, Hgb 10.8 L, Hct 33.4 L, Plt Count 330 05/31/20 03:15: Sodium 138, Potassium 3.7, BUN 22 H, Creatinine 0.88, Glucose 317 H, Magnesium 1.4 L* D, Total Bilirubin 0.9, AST 27, ALT 22, Alkaline Phosphatase 45, Lipase 206 <kelsey helms - Last Filed: 05/31/20 11:01> Assessment and Plan - Problems (Diagnosis) (1) Hyperlipidemia Current Visit: Yes Status: Chronic Plan: We will assess lipid panel on this visit and adjust her statin therapy if needed Qualifiers: Hyperlipidemia type: unspecified Qualified Code(s): E78.5 - Hyperlipidemia, unspecified (2) Chest pain Onset Date: 11/21/14 Current Visit: No Status: Acute Qualifiers: Chest pain type: chest pain due to myocardial ischemia (3) Diabetes mellitus, type II Onset Date: 06/12/18 Current Visit: No Status: Acute Plan: We will put patient on sliding scale and ADA diet while admitted. Will check A1c. Qualifiers: Diabetes mellitus joint terminal attack controller insulin use: with long-term use Diabetes mellitus complication status: without complication Qualified Code(s): E11.9 - Type 2 diabetes mellitus without complications; Z79.4 - penitentiary (current) use of insulin (4) Hypertension Onset Date: 06/12/18 Current Visit: No Status: Chronic Plan: Patient will be on BP medicine to control BP while in hospital to control BP systolic over 160 or diastolic over 110 Qualifiers: Hypertension type: essential hypertension Qualified Code(s): I10 - Essential (primary) hypertension (5) Hypothyroidism Onset Date: 06/12/18 Current Visit: No Status: Chronic Qualifiers: Hypothyroidism type: acquired Qualified Code(s): E03.9 - Hypothyroidism, unspecified (6) Hypomagnesemia Onset Date: 06/15/18 Current Visit: No Status: Acute Plan: Patient will be on magnesium replacement protocol and will infuse mag as needed (7) NSTEMI (non-ST elevated myocardial infarction) Current Visit: Yes Status: Acute Plan: Cardiology has been consulted for further assessment of NSTEMI. Serial troponins will be drawn. Patient will be on LMWH therapeutically and BB. EKG as needed for acute changes. Will remain on telemetry Discharge Plan: Home Plan to discharge in: Greater than 2 days - Advance Directives Does patient have a Living Will: No Does patient have a Durable POA for Healthcare: No Critical Care: No Time Spent Managing Pts Care (In Minutes): 70 <Abner Smith - Last Filed: 05/31/20 06:20> Physician Review: Patient Assessed, Agree with Above Assessment and Plan Physician Review Additional Text: Chest pain NSTEMI Plan: Patient given full-dose Lovenox. On ASA and Coreg. IV morphine PRN Cardiology to evaluate. She will need further outpatient work up for PVD. <kelsey helms - Last Filed: 05/31/20 11:01>
[2020-05-31] MEDS ORDERED: IBUPROFEN 400 MG TAB ONE (07:26)
[2020-05-31] MEDS ORDERED: GLUCAGON 1 MG/VIAL IM PRN (08:39)
[2020-05-31] MEDS ORDERED: D50W 25 GM/50 ML SYRINGE IV PRN (08:39)
[2020-05-31] MEDS: ASPIRIN EC 81 MG TAB PO SCH (09:03)
[2020-05-31] MEDS: MORPHINE 4 MG/ML SYR IV PRN ×2 (09:03→16:31)
[2020-05-31] MEDS: carvediloL 6.25 MG TAB PO SCH ×2 (09:04→21:00)
[2020-05-31] MEDS: INSULIN -REGULAR HUMAN 50 UNIT/0.5 ML ML SQ SCH ×4 (10:01→21:00)
[2020-05-31] MEDS: ONDANSETRON 4 MG/2 ML VIAL IV PRN ×2 (10:01→19:55)
--- NOTE | 2020-05-31 11:08 | P.PN ---
Date of Service: 05/31/20 Patient seen and examined. She reports mild chest pain. She also reports intermittent nausea. Plan: Continue to trend troponin. Awaiting cardiology input. Full-dose Lovenox, Coreg and ASA. Echocardiogram.
[2020-05-31] MEDS ORDERED: PROMETHAZINE INJ 25 MG/ML AMP IV ONE (11:26)
[2020-05-31] MEDS: ENOXAPARIN 80 MG/0.8 ML SQ SCH ×2 (11:58→23:57)
[2020-05-31] MEDS ORDERED: MORPHINE 2 MG/ML SYR IV ONE (19:41)
[2020-05-31] MEDS ORDERED: FENTANYL CITR 100 MCG/2 ML IV ONE (20:41)
[2020-05-31] MEDS: PROMETHAZINE INJ 25 MG/ML AMP IV PRN (20:50)
[2020-06-01] MEDS: PROMETHAZINE INJ 25 MG/ML AMP IV PRN (04:43)
[2020-06-01] MEDS: MORPHINE 4 MG/ML SYR IV PRN ×2 (04:43→16:31)
[2020-06-01 05:51] LABS: Absolute Lymphocytes (CBC) 1.7 K/uL (0.7-4.9); Basophils % 0.6 % (0-1.3); Hematocrit 30.7 % (36.0-45.0); Lymphocytes % 12.6 % (15.3-44.8); MPV 9.2 fL (7.6-11.3); RBC Red Blood Cell Count 3.63 M/uL (3.86-4.86)
[2020-06-01 06:10] LABS: Potassium 3.9 mmol/L (3.5-5.1)
[2020-06-01] MEDS ORDERED: SODIUM CHLORIDE 0.9% 10ML INJ IV PRN (07:05)
[2020-06-01] MEDS ORDERED: NA CHLORIDE 0.9% 250 ML IV ONE (07:41)
[2020-06-01] MEDS: PANTOPRAZOLE 40 MG INJ IVP SCH (07:55)
[2020-06-01] MEDS: INSULIN -REGULAR HUMAN 50 UNIT/0.5 ML ML SQ SCH ×4 (07:55→20:22)
[2020-06-01] MEDS: ASPIRIN EC 81 MG TAB PO SCH (08:05)
[2020-06-01] MEDS: carvediloL 6.25 MG TAB PO SCH ×2 (08:05→22:10)
[2020-06-01] MEDS: ENOXAPARIN 80 MG/0.8 ML SQ SCH (08:05)
[2020-06-01] MEDS: ACETAMINOPHEN 325 MG TABLET PO PRN ×3 (08:21→23:39)
[2020-06-01 08:53] LABS: Blood Morphology Comment NOT SEEN (NOT SEEN); Platelet Estimate ADEQ
[2020-06-01 09:18] LABS: Urine Appearance CLEAR; Urine Blood NEGATIVE (NEG); Urine Color DK YELLOW; Urine Glucose NEGATIVE (NEG); Urine Protein TRACE (NEG); Urine Specific Gravity >=1.030 (1.005-1.030); Urine Urobilinogen 0.2 mg/dL (0.2-1.0)
--- NOTE | 2020-06-01 09:23 | CON ---
Date of Consultation: 05/31/2020 History Of Present Illness: Elevation myocardial infarction. History Of Present Illness: Ms. Menezes was admitted to Dr. Rodríguez on 05/31/2020. She is 70 year s old. Has multiple cardiac risk factors for heart disease. She normally sees Dr. Joe for her [facility] care. She has a history of diabetes, hypertension, dyslipidemia, restless legs syndrome. She h as had chronic back pain and neuropathy. Came in mostly with nausea, vomiting, diarrhea, substernal chest pressure radiating to both shoulders. Denied any PND, orthopnea, palpitation, or syncope. Nev er had any cardiac history before. However, her troponin came back positive suggesting non-ST elevat ion myocardial infarction. She denied PND, orthopnea, pedal edema, palpitation, or syncope. Past Medical History: As stated above. Allergies: NONE. Review of Systems: Negative. Social History: Negative. Family History: Positive for heart disease. Medications: At home include Lomotil, glipizide, omeprazole, losartan with hydrochlorothiazide, tram adol, Synthroid, metformin, carvedilol, and lovastatin. Physical Examination: Vital Signs: Stable. She was afebrile. HEENT: Negative. Neck: Supple with no bruit, lymphadenopathy, JVD, or thyromegaly. Chest: Clear to auscultation and percussion. Cardiac: Revealed a regular rhythm and rate. No murmurs, gallops, or rubs. Abdomen: Benign. Extremities: Revealed no clubbing, cyanosis, or edema. Skin: Dry and intact. Neurologic: She was nonfocal. Pulses were present distally bilaterally. Diagnostic Data: She had a creatinine 1.08. Her hemoglobin was 10.8, white count was 11.5. Her mag nesium was 1.4 and was corrected to 2.1. Her troponin was 5.12. Her BNP was 1308. Her chest x-ray and CT angiogram were still pending. EKG showed nonspecific changes. Impression And Plan: 1.Non-ST elevation myocardial infarction. 2.Hypertension, well controlled. 3.Diabetes, poorly controlled. 4.Dyslipidemia. 5.Low magnesium, corrected. The patient has never had any cardiac history. Has many risk factors f or heart disease, positive troponin pretty suggestive symptoms. We will plan a left heart catheteriz ation to define her coronary anatomy on 06/02/2020. The patient understands the risks and the benefi ts of the procedure and she agrees to proceed. She is presently on Lovenox, aspirin, insulin, and be ta-dima. We should continue her lovastatin. We will see what the catheterization shows before manuelito [place] further decisions. ORESTES/MELISSA Voice ID: [id number] Report ID: [id number]
--- NOTE | 2020-06-01 09:47 | PN ---
Date of Progress Note: 06/01/2020 Ms. Menezes was admitted on 05/31/2020 with a non-ST elevation myocardial infarction. Heart tl terization is set up for 06/02/2020. Overnight, no episodes of chest pain. Still have some nausea. Her last troponin continues to rise up at 7.3. Chest x-ray and CT angiogram are still pending. Rem ains on Lovenox, aspirin, beta blockers. She should resume her lovastatin. No change in medical the rapy. Plan for heart catheterization tomorrow morning. ORESTES/MELISSA Voice ID: [id number] Report ID: [id number]
[2020-06-01 09:55] LABS: Urine Bilirubin POSITIVE (NEG)
[2020-06-01 09:57] LABS: Urine Bacteria <20 /HPF (<20); Urine RBC NONE SEEN /HPF (NONE SEEN)
--- NOTE | 2020-06-01 10:51 | P.PN ---
Subjective Date of Service: 06/01/20 Primary Care Provider: Dr. Joe Chief Complaint: NSTEMI Patient has been experiencing intermittent nausea and vomits. She has also been complaining of left shoulder pain. This morning patient noted to be febrile with a temperature of 100.6. She stated she was feeling better during my examination this morning. Troponin peaked at some 7.3. Serial EKG: No ST elevation Physical Examination - Vital Signs Temperature: 100.6 F Blood Pressure: 97/56 Pulse: 76 Respirations: 18 Pulse Ox (%): 95 - Physical Exam General: Alert, In no apparent distress HEENT: Mucous membr. moist/pink Neck: Supple, JVD not distended Respiratory: Clear to auscultation bilaterally, Normal air movement Cardiovascular: No edema, Regular rate/rhythm, Normal S1 S2 Gastrointestinal: Normal bowel sounds, Soft and benign, No tenderness Musculoskeletal: No swelling, No tenderness Integumentary: No rashes, No erythema Neurological: Other (Nonfocal) Assessment And Plan - Current Problems (Diagnosis) (1) NSTEMI (non-ST elevated myocardial infarction) Current Visit: Yes Status: Acute (2) Hyperlipidemia Current Visit: Yes Status: Chronic Qualifiers: Hyperlipidemia type: unspecified Qualified Code(s): E78.5 - Hyperlipidemia, unspecified (3) Diabetes mellitus, type II Onset Date: 06/12/18 Current Visit: No Status: Acute Qualifiers: Diabetes mellitus salvage determiner insulin use: with correction use Diabetes mellitus complication status: without complication Qualified Code(s): E11.9 - Type 2 diabetes mellitus without complications; Z79.4 - 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 Continue full-dose Lovenox, Coreg, Lipitor and aspirin. NPO at midnight. UA does not suggest the presence of UTI. No evidence of PE or pneumonia by CTA thorax. Obtain blood cultures. IV morphine p.r.n. for pain. Antiemetics as needed. Cardiology to follow. Insulin sliding scale for glucose management.
[2020-06-01] MEDS ORDERED: NA CHLORIDE 0.9% 500 ML IV ONE (17:00)
[2020-06-01] MEDS ORDERED: NITROGLYCERIN 1 GM PKT TD ONE ×2 (17:01→17:07)
--- NOTE | 2020-06-01 17:14 | P.PN ---
Date of Service: 06/01/20 Rapid response called to bedside. Patient with chest pain. She has had a non ST-elevation myocardial infarction. Continues to have some chest discomfort. She says it was alleviated with sublingual nitroglycerin when she arrived. Will place the nitro paste. However, her blood pressure is low but she did have acetones and ketones in her system. She may be a little dehydrated as well as her BUN creatinine ratio is greater than 20-1. I will give her a bolus of IV fluids and continue with normal saline. Will notify Cardiology. EKG with no ST elevation changes. Continue monitoring troponin and BNP and will get an echocardiogram as well. mechanical sound technician normally not available after hr so will wait for in the morning. She was able to talk to me in full sentences and her pain was controlled when I was having a conversation with her. Hopefully the nitropaste will help her and we can get cardiac intervention in the morning.
[2020-06-01] MEDS: NA CHLORIDE 0.9% 1,000 ML IV SCH ×2 (17:36→18:15)
[2020-06-01] MEDS: FENTANYL CITR 100 MCG/2 ML IV PRN (18:15)
[2020-06-01] MEDS: clonazePAM 1 MG TAB PO SCH (20:22)
[2020-06-02] MEDS: NA CHLORIDE 0.9% 1,000 ML IV SCH ×2 (02:57→11:37)
[2020-06-02] MEDS: FENTANYL CITR 100 MCG/2 ML IV PRN (02:58)
[2020-06-02] MEDS ORDERED: FENTANYL CITR 100 MCG/2 ML IV ONE ×2 (05:33→06:50)
[2020-06-02] MEDS: LEVOTHYROXINE SOD 0.125 MG TAB PO SCH (05:38)
[2020-06-02] MEDS: carvediloL 6.25 MG TAB PO SCH (05:39)
[2020-06-02] MEDS: ASPIRIN EC 81 MG TAB PO SCH (05:39)
[2020-06-02] MEDS ORDERED: HEPA 1000U/500MLS 2,000 UNIT/1,000 ML BAG IV ONE (06:14)
[2020-06-02] MEDS ORDERED: PANTOPRAZOLE 40MG TABLET PO SCH (06:30)
[2020-06-02] MEDS: INSULIN -REGULAR HUMAN 50 UNIT/0.5 ML ML SQ SCH ×4 (07:30→20:37)
[2020-06-02 08:16] LABS: Urine Appearance CLEAR; Urine Blood NEGATIVE (NEG); Urine Color DK YELLOW; Urine Glucose NEGATIVE (NEG); Urine Protein TRACE (NEG); Urine Specific Gravity >=1.030 (1.005-1.030)
[2020-06-02 08:30] LABS: Urine Bilirubin 1+ (NEG)
[2020-06-02 08:32] LABS: Urine Bacteria >50 /HPF (<20); Urine RBC <5 /HPF (NONE SEEN)
[2020-06-02] MEDS ORDERED: AMLODIPINE 5 MG TAB PO SCH (09:00)
[2020-06-02] MEDS ORDERED: HEPARIN 5000 UNIT/ML 1 ML VIAL ONE (09:08)
[2020-06-02] MEDS ORDERED: ATROPINE SULF 1 MG/10 ML SYR IV ONE (09:09)
[2020-06-02] MEDS ORDERED: FENTANYL CITR 100 MCG/2 ML ONE (09:09)
[2020-06-02] MEDS ORDERED: VERAPAMIL HCL 10 MG/4 ML VIAL IV ONE (09:09)
[2020-06-02] MEDS ORDERED: MIDAZOLAM HCL 2 MG/2 ML INJ ONE (09:09)
[2020-06-02] MEDS ORDERED: LIDOCAINE 1% 20 ML MDV ONE (09:24)
--- NOTE | 2020-06-02 10:47 | OP ---
Date of Procedure: 06/02/2020 Surgeon: IAN HERNANDEZ Procedure Performed: 1.Selective coronary angiogram. 2.LV-gram. Indication: Non-ST elevation myocardial infarction. Access: Right femoral artery 6-Slovak closed with a 6-Slovak Angio-Seal with good hemostasis. Complications: None. Bleeding: Less than 10 mL. Anesthesia: Total sedation time was 20 minutes. Description Of Procedure: After risks, benefits, and alternatives were explained, the patient agreed to proceed and signed informed consent. The patient was brought into the cardiac catheterization la boratory, prepped and draped in usual sterile fashion and then we accessed the right femoral artery w ith ultrasound guidance and fluoroscopy and inserted a 6-Slovak [place] sheath and we used micropunc ture to access the artery and we took a 6-Slovak JL4 catheter into the aortic root, engaged left main , took standard views, exchanged that for 6-Slovak JR4 catheter, engaged the right coronary artery an d took standard views and then we took a 6-Slovak angled pigtail catheter into the aortic root across the aortic valve and recorded LVEDP at 11 mmHg. Upon pullback, there was no difference in gradient and then we did an LV gram. Then we removed all catheters and wires, and sheath was removed and we c losed the access with a 6-Slovak Angio-Seal with good hemostasis. Findings: 1.Left main large and normal. 2.LAD large and normal with diagonals being normal. 3.A left circumflex is moderate sized and normal. 4.RCA large, dominant and normal. No coronary artery disease on this study. 5.Severely depressed LV EF with ejection fraction of 25%-30% with severe mid to distal hypokinesis, likely stress induced cardiomyopathy, takotsubo type. 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 2.Normal coronary arteries. Recommendations: Heart failure directed medical therapy, KURTIS inhibitor and beta dima if the blood pressure allows. Obtain official echocardiogram. SR/MODL Voice ID: [id number] Report ID: [id number]
--- NOTE | 2020-06-02 10:48 | RAD REPORT ---
EXAM DESCRIPTION: RAD - Chest Single View - 05/31/2020 3:43 am CLINICAL HISTORY: The patient is 70 years old and is Female; CHEST PAIN TECHNIQUE: Single view of the chest. COMPARISON: No relevant prior studies available. FINDINGS: Lungs: Unremarkable. No consolidation. Pleural space: Unremarkable. No pneumothorax. Heart: The cardiac silhouette is enlarged versus artifact of AP technique. Mediastinum: Unremarkable. Bones/joints: No acute fracture visualized. Upper abdomen: No free air in the visualized upper abdomen. IMPRESSION: No acute cardiopulmonary process identified. Electronically signed by: Cady Diaz MD 05/31/2020 5:18 AM ASSEMBLER TRACTOR Due to temporary technical issues with the PACS/Fluency reporting system, reports are being signed by the in house radiologist without review as a courtesy to ensure prompt reporting. The interpreting r adiologist is fully responsible for the content of the report.
--- NOTE | 2020-06-02 10:50 | RAD REPORT ---
EXAM DESCRIPTION: CT - Chest For Pe Angio - 05/31/2020 7:56 am CLINICAL HISTORY: The patient is 70 years old and is Female; CHEST PAIN TECHNIQUE: Axial computed tomographic angiography images of the chest with intravenous contrast. S agittal and coronal reformatted images were created and reviewed. This CT exam was performed using one or more of the following dose reduction techniques: automated exposure control, adjustment of t he mA and/or kV according to patient size, and/or use of iterative reconstruction technique. MIP re constructed images were created and reviewed. COMPARISON: No relevant prior studies available. FINDINGS: Pulmonary arteries: No PE identified. Borderline enlarged main pulmonary arteries. Aorta: No acute findings. No thoracic aortic aneurysm. Lungs: No pulmonary consolidation or groundglass opacities. Pleural space: No pleural effusion or pneumothorax. Heart: Cardiomegaly. Small pericardial effusion. No evidence of RV dysfunction. Mediastinum: No pathologically enlarged mediastinal or hilar lymph nodes. Bones/joints: Degenerative changes in the lower thoracic spine. Old T11 compression fracture wit h vertebroplasty changes. Old sternal fracture. Old right anterior rib fractures. No dislocation. Soft tissues: Unremarkable. Lymph nodes: See above. Adrenals: Bilateral adrenal hyperplasia. IMPRESSION: 1. No PE identified. 2. Borderline enlarged main pulmonary arteries. 3. No pulmonary consolidation or groundglass opacities. Electronically signed by: Cady Diaz MD 05/31/2020 7:42 AM CLIENT SERVICE ADMINISTRATOR Due to temporary technical issues with the PACS/Fluency reporting system, reports are being signed by the in house radiologist without review as a courtesy to ensure prompt reporting. The interpreting r adiologist is fully responsible for the content of the report.
[2020-06-02] MEDS: DULOXETINE 20 MG CAP PO SCH (11:37)
[2020-06-02] MEDS: clonazePAM 1 MG TAB PO SCH ×2 (11:37→20:38)
[2020-06-02] MEDS: PANTOPRAZOLE 40 MG INJ IVP SCH (11:37)
--- NOTE | 2020-06-02 12:12 | P.DS ---
Admission Date: 05/31/20 Discharge Date: 06/02/20 Primary Care Provider: Dr. Joe Discharge Condition: FAIR Reason for Admission: NSTEMI - Problems (1) NSTEMI (non-ST elevated myocardial infarction) Current Visit: Yes Status: Acute (2) Hyperlipidemia Current Visit: Yes Status: Chronic Qualifiers: Hyperlipidemia type: unspecified Qualified Code(s): E78.5 - Hyperlipidemia, unspecified (3) Diabetes mellitus, type II Onset Date: 06/12/18 Current Visit: No Status: Acute Qualifiers: Diabetes mellitus retirement insulin use: with retirement use Diabetes mellitus complication status: without complication Qualified Code(s): E11.9 - Type 2 diabetes mellitus without complications; Z79.4 - [employer] (current) use of insulin (4) Nausea & vomiting Onset Date: 06/12/18 Current Visit: No Status: Acute (5) Hypothyroidism Onset Date: 06/12/18 Current Visit: No Status: Chronic Qualifiers: Hypothyroidism type: acquired Qualified Code(s): E03.9 - Hypothyroidism, unspecified (6) Fever Current Visit: Yes Status: Acute (7) UTI (urinary tract infection) Current Visit: Yes Status: Acute Brief History of Present Illness: 70-year-old woman with a history of hypertension, diabetes and hypothyroidism presented to the emergency department with a complaint of nausea and vomiting and chest pain of onset pulmonary for admission. In the ED, her chest x-ray was unremarkable. Initial troponin was elevated to 5. The patient was admitted further management of NSTEMI. Hospital Course: Her troponin trended up to 7.3. Patient continued to experience intermittent chest with nausea and occasional vomiting. Patient was treated for NSTEMI with full-dose Lovenox,, aspirin, statn and Coreg. Her lipid profile was within normal limit. Patient was seen and evaluated by the cardiology team. Cardiac catheterization was performed today which showed severe LVH with severe [place] to distal LV hypokinesis suggesting Takotsubo cardiomyopathy. Cardiology recommended heart failure medications including low-dose lisinopril, and low- dose Coreg and aspirin. Patient prescribed this medications on discharge. She will follow with her PCP within [address] Arboleda as recommended. Her UA suggested the presence of UTI. Patient is prescribed cefpodoxime for the UTI treatment. Vital Signs/Physical Exam: Temp Pulse Resp BP Pulse Ox 98.4 F 105 H 18 101/63 91 06/02/20 11:35 06/02/20 11:35 06/02/20 11:35 06/02/20 11:35 06/02/20 07:54 General: Alert, In no apparent distress HEENT: Mucous membr. moist/pink Neck: Supple, JVD not distended Respiratory: Clear to auscultation bilaterally, Normal air movement Cardiovascular: No edema, Regular rate/rhythm, Normal S1 S2 Gastrointestinal: Normal bowel sounds, Soft and benign, No tenderness Musculoskeletal: No swelling Integumentary: No rashes Neurological: Other (Nonfocal) Laboratory Data at Discharge: WBC 13.2 K/uL (4.3-10.9) H D 06/01/20 05:05 Hgb 9.9 g/dL (12.0-15.0) L 06/01/20 05:05 Hct 30.7 % (36.0-45.0) L 06/01/20 05:05 Plt Count 270 K/uL (152-406) 06/01/20 05:05 PT 11.4 SECONDS (9.5-12.5) 05/31/20 03:15 INR 0.97 05/31/20 03:15 Sodium 140 mmol/L (136-145) 06/01/20 05:05 Potassium 3.9 mmol/L (3.5-5.1) 06/01/20 05:05 BUN 24 mg/dL (7-18) H 06/01/20 05:05 Creatinine 1.08 mg/dL (0.55-1.3) 06/01/20 05:05 Glucose 219 mg/dL (74-106) H 06/01/20 05:05 Magnesium 2.1 mg/dL (1.8-2.4) D 05/31/20 18:49 Total Bilirubin 0.9 mg/dL (0.2-1.0) 05/31/20 03:15 AST 27 U/L (15-37) 05/31/20 03:15 ALT 22 U/L (12-78) 05/31/20 03:15 Alkaline Phosphatase 45 U/L (45-117) 05/31/20 03:15 Troponin I 6.86 ng/mL (0.0-0.045) H* 06/01/20 17:22 Triglycerides 75 mg/dL (<150) 05/31/20 07:49 Cholesterol 179 mg/dL (<200) 05/31/20 07:49 HDL Cholesterol 73 mg/dL (40-60) H 05/31/20 07:49 Cholesterol/HDL Ratio 2.45 05/31/20 07:49 Lipase 206 U/L (73-393) 05/31/20 03:15 Home Medications: Alendronate Sodium [Fosamax] 1 tab PO SEECOM 05/31/20 Amlodipine Besylate [Norvasc] 1 tab PO DAILY 05/31/20 Diphenox/Atropine [Lomotil*] 1 tab PO QID PRN 05/31/20 Duloxetine [Cymbalta *] 1 cap PO DAILY 05/31/20 Levothyroxine [Synthroid*] 1 tab PO [id number] 05/31/20 Losartan/Hydrochlorothiazide [Hyzaar 100-25 Tablet] 1 tab PO DAILY 05/31/20 Lovastatin [Altoprev] 1 tab PO DAILY 05/31/20 Metformin HCl [Glucophage*] 1 tab PO BIDWM 05/31/20 Omeprazole 40 mg PO DAILY 05/31/20 Tramadol HCl [Ultram] 1 tab PO Q6H PRN 05/31/20 carvediloL [Carvedilol] 1 tab PO BID* 05/31/20 clonazePAM [Klonopin*] 1 tab PO BID 05/31/20 glipiZIDE [Glucotrol*] 1 tab PO BID 05/31/20 Followup: Unknown,U [Primary Care Provider] - Time spent managing pt's care (in minutes): 38
--- NOTE | 2020-06-02 15:09 | ECHO ---
HEIGHT: 5 ft 4 in WEIGHT: 170 lb 0 oz DATE OF STUDY: 06/02/[address]: kelsey helms 2-DIMENSIONAL: YES M.MODE: YES DOPPLER: YES COLOR FLOW: YES TDS: PORTABLE: DEFINITY: BUBBLE STUDY: DIAGNOSIS: NON ST ELEVATION MYOCARDIAL INFARCTION CARDIAC HISTORY: CATHERIZATION: SURGERY: PROSTHETIC VALVE: PACEMAKER: MEASUREMENTS (cm) DIASTOLIC (NORMALS) SYSTOLIC (NORMALS) IVSd 1.2 (0.6-1.2) LA Diam 3.6 (1.9-4.0) LVEF 25-30% LVIDd 3.7 (3.5-5.7) LVIDs 2.8 (2.0-3.5) %FS 26% LVPWd 1.1 (0.6-1.2) Ao Diam 2.9 (2.0-3.7) 2 DIMENSIONAL ASSESSMENT: RIGHT ATRIUM: NORMAL LEFT ATRIUM: NORMAL RIGHT VENTRICLE: NORMAL LEFT VENTRICLE: SEVERELY DEPRESSED TRICUSPID VALVE: NORMAL MITRAL VALVE: NORMAL PULMONIC VALVE: NORMAL AORTIC VALVE: NORMAL PERICARDIAL EFFUSION: MILD TO MODERATE AORTIC ROOT: NORMAL LEFT VENTRICULAR WALL MOTION: SEVERE MID DISTAL HYPOKINESIS WITH APICAL AKINESIS DOPPLER/COLOR FLOW: SEE BELOW COMMENTS: SEVERELY DEPRESSED LEFT VENTRICULAR EJECTION FRACTION MID TO DISTAL SEVERE HYPOKINESIS, EJECTION FRACTION 25-30%, LIKELY TAKOTSUBO CARDIOMYOPATHY. LEFT VENTRICULAR THROMBUS IS SEEN. MILD TO MODERATE PERICARDIAL EFFUSION. TECHNOLOGIST: SEBASTIEN MORRIS
--- NOTE | 2020-06-02 15:49 | P.PN ---
Subjective Date of Service: 06/02/20 Primary Care Provider: Dr. Joe Chief Complaint: NSTEMI Cardiac catheterization performed today. Patient noted to have clean coronary arteries but severely depressed LV function with hypokinesis from mid to distal LV. Echocardiogram confirms EF of 25-30%, mild to moderate pericardial effusion and LV thrombus. She currently has no complain. UA suggest the presence of UTI. Physical Examination - Vital Signs Temperature: 98.2 F Blood Pressure: 96/73 Pulse: 101 Respirations: 20 Pulse Ox (%): 91 - Physical Exam General: In no apparent distress, Other (Awake) HEENT: Mucous membr. moist/pink, Sclerae nonicteric Neck: Supple, JVD not distended Respiratory: Clear to auscultation bilaterally, Normal air movement Cardiovascular: No edema, Regular rate/rhythm (Tachycardic), Normal S1 S2 Capillary refill: <2 Seconds Gastrointestinal: Normal bowel sounds, Soft and benign, No tenderness Musculoskeletal: No swelling, No erythema, Other (Cardiac catheterization entry site in the right groin not oozing.) Integumentary: No rashes Neurological: Other (Nonfocal) Assessment And Plan - Current Problems (Diagnosis) (1) NSTEMI (non-ST elevated myocardial infarction) Current Visit: Yes Status: Acute (2) Hyperlipidemia Current Visit: Yes Status: Chronic Qualifiers: Hyperlipidemia type: unspecified Qualified Code(s): E78.5 - Hyperlipidemia, unspecified (3) Diabetes mellitus, type II Onset Date: 06/12/18 Current Visit: No Status: Acute Qualifiers: Diabetes mellitus [facility] insulin use: with [facility] use Diabetes mellitus complication status: without complication Qualified Code(s): E11.9 - Type 2 diabetes mellitus without complications; Z79.4 - halfway (current) use of insulin (4) Nausea & vomiting Onset Date: 06/12/18 Current Visit: No Status: Acute (5) Hypothyroidism Onset Date: 06/12/18 Current Visit: No Status: Chronic Qualifiers: Hypothyroidism type: acquired Qualified Code(s): E03.9 - Hypothyroidism, unspecified (6) UTI (urinary tract infection) Current Visit: Yes Status: Acute (7) Systolic congestive heart failure with reduced left ventricular function, [place] CABALLERO class 1 Current Visit: Yes Status: Acute (8) LV (left ventricular) mural thrombus Current Visit: Yes Status: Acute - Plan Start Coumadin with Full-dose Lovenox bridge. Monitor PT and INR. Patient placed on low-dose Coreg and lisinopril with holding parameters. Discontinue Aspirin Start IV Rocephin for UTI Antiemetics as needed. Insulin sliding scale for glucose management. Monitor renal function. She will need followup with cardiology as an outpatient.
[2020-06-02 15:50] LABS: Protime INR 0.98
[2020-06-02] MEDS: CEFTRIAXONE/SWI 1gm 1 GM/10 ML SYR IVP SCH (16:17)
[2020-06-02] MEDS ORDERED: WARFARIN SODIUM 5 MG TAB PO SCH (17:00)
[2020-06-02] MEDS: ENOXAPARIN 80 MG/0.8 ML SQ SCH (20:38)
[2020-06-02] MEDS: carvediloL 3.125 MG TAB PO SCH (20:38)
[2020-06-02] MEDS ORDERED: NA CHLORIDE 0.9% 250 ML IV ONE (20:40)
[2020-06-03] MEDS: NA CHLORIDE 0.9% 1,000 ML IV SCH ×2 (03:15→21:44)
[2020-06-03] MEDS: LEVOTHYROXINE SOD 0.125 MG TAB PO SCH (05:48)
[2020-06-03 06:01] LABS: Absolute Lymphocytes (CBC) 1.4 K/uL (0.7-4.9); Basophils % 0.5 % (0-1.3); Hematocrit 26.8 % (36.0-45.0); Lymphocytes % 12.8 % (15.3-44.8); RBC Red Blood Cell Count 3.15 M/uL (3.86-4.86)
[2020-06-03] MEDS: ONDANSETRON 4 MG/2 ML VIAL IV PRN (07:11)
[2020-06-03] MEDS: clonazePAM 1 MG TAB PO SCH ×2 (08:53→21:43)
[2020-06-03] MEDS: carvediloL 3.125 MG TAB PO SCH ×2 (08:53→21:43)
[2020-06-03] MEDS: PANTOPRAZOLE 40 MG INJ IVP SCH (08:53)
[2020-06-03] MEDS: CEFTRIAXONE/SWI 1gm 1 GM/10 ML SYR IVP SCH (08:53)
[2020-06-03] MEDS: ENOXAPARIN 80 MG/0.8 ML SQ SCH ×2 (08:54→21:43)
[2020-06-03] MEDS: ACETAMINOPHEN 325 MG TABLET PO PRN (08:54)
[2020-06-03] MEDS: INSULIN -REGULAR HUMAN 50 UNIT/0.5 ML ML SQ SCH ×4 (08:54→21:44)
[2020-06-03] MEDS: DULOXETINE 20 MG CAP PO SCH (08:54)
[2020-06-03] MEDS: lisinopriL 5 MG TAB PO SCH (10:17)
--- NOTE | 2020-06-03 11:49 | P.PN ---
Subjective Date of Service: 06/03/20 Primary Care Provider: Dr. Joe Chief Complaint: NSTEMI Subjective: No new changes (feeling ok, reports didn't sleep well last night. continues with some chest pain, states it is slightly worse when eating. denies SOB, nausea/vomiting/diarrhea) Review of Systems 10-point ROS is otherwise unremarkable Physical Examination - Vital Signs Temperature: 97.1 F Blood Pressure: 90/62 Pulse: 80 Respirations: 18 Pulse Ox (%): 100 - Physical Exam General: Alert, In no apparent distress Respiratory: Clear to auscultation bilaterally Cardiovascular: Regular rate/rhythm Gastrointestinal: Soft and benign, Non-distended, No tenderness Musculoskeletal: No tenderness Integumentary: No rashes Neurological: Normal speech, Normal affect Assessment & Plan Physician Review Additional Text: HFrEF, (25-30%) nonischemic cardiomyopathy, 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 LV mural thrombus UTI, cystitis HLD DM2 Hypothyroidism -started on coumadin with lovenox bridge 06/02 with 5mg coumadin for mural thrombus -increase coumadin to 10mg tonight -monitor PT/INR -pt on low-dose coreg and lisinopril with holding parameter - pt with low BP -continue rocephin for UTI (started 06/02) - growing e.coli -SSI for glucose management Dispo: dc home in several days - will need to be bridged to Coumadin Time Spent Managing Pts Care (In Minutes): 35
[2020-06-03] MEDS: WARFARIN SODIUM 5 MG TAB PO SCH (16:59)
[2020-06-04] MEDS: FENTANYL CITR 100 MCG/2 ML IV PRN ×2 (01:18→23:33)
--- NOTE | 2020-06-04 03:29 | PN ---
Date of Progress Note: 06/03/2020 Ms. Menezes had come in with non-ST elevation myocardial infarction. Heart catheterization yester day showed normal coronaries by Dr. Arboleda. It is presumed that the patient had a Takotsubo syndrome . Ejection fraction was severely depressed at 30%. She had a [id number] pericardial effusion, left ventricular apical thrombus. The patient was placed on IV heparin and Coumadin. We will keep her in the hospital until her INR is adequate. She will eventually need a repeat echocardiography in the office in the next month or so. We will probably have to keep her on Coumadin for at least 6 mo nths. Her other problems include hypertension, diabetes, and dyslipidemia; they are all stable. Her present regimen includes Coreg, Lovenox, Coumadin, Synthroid, Prinivil. She is not having any complaints. She should eventually go home on Coreg, lisinopril, Lasix, and a b krista aspirin with her Coumadin, and we will see her in the office in the next 2 to 3 weeks. We will c amaya to follow her otherwise. ORESTES/MELISSA Voice ID: [id number] Report ID: [id number]
[2020-06-04] MEDS: NA CHLORIDE 0.9% 1,000 ML IV SCH (05:20)
[2020-06-04 06:02] LABS: Protime INR 1.13
[2020-06-04 06:03] LABS: Absolute Lymphocytes (CBC) 0.8 K/uL (0.7-4.9); Basophils % 0.6 % (0-1.3); Hematocrit 23.8 % (36.0-45.0); Lymphocytes % 11.6 % (15.3-44.8); MPV 9.4 fL (7.6-11.3); RBC Red Blood Cell Count 2.84 M/uL (3.86-4.86)
[2020-06-04] MEDS: LEVOTHYROXINE SOD 0.125 MG TAB PO SCH (06:08)
[2020-06-04 06:17] LABS: Magnesium 2.3 mg/dL (1.8-2.4)
[2020-06-04 08:04] LABS: Platelet Estimate ADEQ; Platelets, Giant FEW; White Blood Cell Scan OK (OK)
[2020-06-04 08:05] LABS: Blood Morphology Comment NOT SEEN (NOT SEEN)
[2020-06-04] MEDS: CEFTRIAXONE/SWI 1gm 1 GM/10 ML SYR IVP SCH (08:35)
[2020-06-04] MEDS: PANTOPRAZOLE 40 MG INJ IVP SCH (08:35)
--- NOTE | 2020-06-04 08:35 | PN ---
Date of Progress Note: 06/04/2020 Ms. Menezes has been in the hospital for non-STEMI and new onset acute systolic congestive heart f ailure. Catheterization showed normal coronary. She may have had Takotsubo syndrome. She does have apical LV thrombus. She is on heparin. She is on Coumadin. INR is still not adequate. She should stay for at least 1 more day. She received 10 mg of Coumadin yesterday. She does complain of short ness of breath, PND. No pedal edema. She is on aspirin, carvedilol, lisinopril, Lasix. I think we should go up on Coreg dose. We should increase her Lasix dose, she should stay ahead at least till t omorrow. Hopefully, she will go home tomorrow. I will see her in the office in the next . I discussed the case further with Dr. Garcia. ORESTES/MELISSA Voice ID: [id number] Report ID: [id number]
[2020-06-04] MEDS: ACETAMINOPHEN 325 MG TABLET PO PRN (08:36)
[2020-06-04] MEDS: clonazePAM 1 MG TAB PO SCH ×2 (08:36→20:38)
[2020-06-04] MEDS: lisinopriL 5 MG TAB PO SCH (08:36)
[2020-06-04] MEDS: DULOXETINE 20 MG CAP PO SCH (08:36)
[2020-06-04] MEDS: ENOXAPARIN 80 MG/0.8 ML SQ SCH ×2 (08:36→20:38)
[2020-06-04] MEDS: carvediloL 3.125 MG TAB PO SCH (08:37)
[2020-06-04] MEDS: INSULIN -REGULAR HUMAN 50 UNIT/0.5 ML ML SQ SCH ×4 (08:44→21:00)
[2020-06-04] MEDS ORDERED: FUROSEMIDE 20 MG/ 2ML VIAL IV ONE (09:29)
[2020-06-04] MEDS: WARFARIN SODIUM 5 MG TAB PO SCH (16:58)
[2020-06-04] MEDS: NITROFURAN MACRO 100 MG CAP PO SCH (16:59)
--- NOTE | 2020-06-04 17:12 | P.PN ---
Subjective Date of Service: 06/04/20 Primary Care Provider: Dr. Joe Chief Complaint: NSTEMI Subjective: No new changes (does report some slight SOB, otherwise doing well) Review of Systems 10-point ROS is otherwise unremarkable Physical Examination - Vital Signs Temperature: 97.5 F Blood Pressure: 110/65 Pulse: 75 Respirations: 18 Pulse Ox (%): 95 - Physical Exam General: Alert, In no apparent distress, Oriented x3 HEENT: Sclerae nonicteric Respiratory: Diminished (at bases bilaterally) Cardiovascular: No edema, Regular rate/rhythm Gastrointestinal: Soft and benign, No tenderness Integumentary: No rashes Neurological: Normal speech, Normal affect Assessment & Plan Physician Review Additional Text: HFrEF, (25-30%) nonischemic cardiomyopathy, 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 LV mural thrombus UTI, cystitis HLD DM2 Hypothyroidism -started on coumadin with lovenox bridge 06/02 with 5mg coumadin for mural thrombus -increased coumadin to 10mg 06/03, continue 10mg tonight -monitor PT/INR -pt on low-dose coreg and lisinopril with holding parameter - pt with low BP -on rocephin for UTI (started 06/02) - growing e.coli, sensitivities reviewed,will de-escalate -SSI for glucose management -will give lasix today x1, dc IVF Dispo: dc home in several days - will need to be bridged to Coumadin Time Spent Managing Pts Care (In Minutes): 25
[2020-06-04] MEDS: carvediloL 6.25 MG TAB PO SCH (20:37)
[2020-06-05] MEDS: BENZONATATE 100 MG CAP PO PRN ×2 (05:29→15:11)
[2020-06-05] MEDS: LEVOTHYROXINE SOD 0.125 MG TAB PO SCH (05:29)
[2020-06-05 05:37] LABS: Protime INR 2.19
[2020-06-05 05:41] LABS: Magnesium 1.9 mg/dL (1.8-2.4); Potassium 3.7 mmol/L (3.5-5.1)
[2020-06-05] MEDS ORDERED: FUROSEMIDE 40 MG/4 ML VIAL IV ONE (08:01)
[2020-06-05] MEDS: ENOXAPARIN 80 MG/0.8 ML SQ SCH ×2 (09:16→20:59)
[2020-06-05] MEDS: clonazePAM 1 MG TAB PO SCH ×2 (09:17→20:54)
[2020-06-05] MEDS: carvediloL 6.25 MG TAB PO SCH ×2 (09:17→20:53)
[2020-06-05] MEDS: NITROFURAN MACRO 100 MG CAP PO SCH ×2 (09:17→17:11)
[2020-06-05] MEDS: PANTOPRAZOLE 40 MG INJ IVP SCH (09:17)
[2020-06-05] MEDS: INSULIN -REGULAR HUMAN 50 UNIT/0.5 ML ML SQ SCH ×4 (09:18→20:55)
[2020-06-05] MEDS: lisinopriL 5 MG TAB PO SCH (09:18)
[2020-06-05] MEDS: DULOXETINE 20 MG CAP PO SCH (09:18)
[2020-06-05] MEDS: BISACODYL 10 MG RECTAL SUPP PR ONE ×2 (12:51→13:56)
--- NOTE | 2020-06-05 12:58 | P.PN ---
Subjective Date of Service: 06/05/20 Primary Care Provider: Dr. Joe Chief Complaint: NSTEMI Subjective: No new changes (feeling ok, still with some shortness of breath, on 3-4L NC, no lower extremity swelling, no chest pain, urinating without issue, no BM in several days) Review of Systems 10-point ROS is otherwise unremarkable Physical Examination - Vital Signs Temperature: 98.7 F Blood Pressure: 133/71 Pulse: 88 Respirations: 16 Pulse Ox (%): 97 - Physical Exam General: Alert, In no apparent distress, Oriented x3 HEENT: Sclerae nonicteric Respiratory: Clear to auscultation bilaterally, Diminished (at bases bilaterally) Cardiovascular: No edema, Regular rate/rhythm Gastrointestinal: Soft and benign, No tenderness Musculoskeletal: No tenderness Integumentary: No rashes Neurological: Normal speech, Normal affect Assessment & Plan Physician Review Additional Text: HFrEF, (25-30%) nonischemic cardiomyopathy, 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 LV mural thrombus UTI, cystitis HLD DM2 Hypothyroidism -started on coumadin with lovenox bridge 06/02 with 5mg coumadin for mural thrombus -increased coumadin to 10mg 06/03 and 06/04, INR therapeutic now -pt on low-dose coreg and lisinopril with holding parameter - pt with low BP -received rocephin for UTI (started 06/02) - growing e.coli, sensitivities reviewed, now on macrobid -SSI for glucose management, restart home PO medications -lasix 20 IV on 06/04, 40mg IV today, will need lasix on discharge -EF: 25-30%, will likely need home oxygen for a few weeks Dispo: anticipate dc home tomorrow, IV lasix, wean oxygen, will consult SW for home O2 Time Spent Managing Pts Care (In Minutes): 35
[2020-06-05] MEDS: FENTANYL CITR 100 MCG/2 ML IV PRN (15:11)
[2020-06-05] MEDS: WARFARIN SODIUM 5 MG TAB PO SCH (17:11)
[2020-06-05] MEDS: glipiZIDE 5 MG TAB PO SCH (17:11)
[2020-06-05] MEDS: METFORMIN HCL 850 MG TAB PO SCH (17:11)
[2020-06-05] MEDS: ACETAMINOPHEN 325 MG TABLET PO PRN (20:53)
[2020-06-05] MEDS ORDERED: IBUPROFEN 400 MG TAB PO ONE (22:40)
[2020-06-06] MEDS: FENTANYL CITR 100 MCG/2 ML IV PRN ×3 (02:26→21:56)
[2020-06-06] MEDS: BENZONATATE 100 MG CAP PO PRN ×2 (03:01→19:57)
[2020-06-06] MEDS ORDERED: NA CHLORIDE 0.9% 500 ML IV ONE ×2 (03:13→04:23)
[2020-06-06] MEDS: LEVOTHYROXINE SOD 0.125 MG TAB PO SCH (05:56)
[2020-06-06 06:25] LABS: Magnesium 1.8 mg/dL (1.8-2.4); Potassium 3.6 mmol/L (3.5-5.1)
[2020-06-06 06:26] LABS: Protime INR 2.25
[2020-06-06] MEDS ORDERED: MAGNESIUM SULFATE 1 gm IVPB 1 GM/100 ML BAG IV ONE (06:45)
[2020-06-06 07:22] LABS: Ferritin 107.8 ng/mL (8-388)
[2020-06-06] MEDS: INSULIN -REGULAR HUMAN 50 UNIT/0.5 ML ML SQ SCH ×4 (07:30→21:00)
[2020-06-06] MEDS: glipiZIDE 5 MG TAB PO SCH (07:30)
[2020-06-06 07:34] LABS: Basophils % 0.8 % (0-1.3); Lymphocytes % 20.5 % (15.3-44.8); MPV 9.5 fL (7.6-11.3); RBC Red Blood Cell Count 3.36 M/uL (3.86-4.86)
[2020-06-06] MEDS: METFORMIN HCL 850 MG TAB PO SCH (08:00)
[2020-06-06] MEDS: carvediloL 6.25 MG TAB PO SCH ×2 (08:25→21:00)
[2020-06-06] MEDS: PANTOPRAZOLE 40 MG INJ IVP SCH (08:34)
[2020-06-06] MEDS: clonazePAM 1 MG TAB PO SCH ×2 (08:36→19:57)
[2020-06-06] MEDS: predniSONE 20 MG TAB PO SCH ×2 (08:39→19:57)
[2020-06-06] MEDS: ENOXAPARIN 80 MG/0.8 ML SQ SCH (08:39)
--- NOTE | 2020-06-06 08:39 | P.PN ---
Subjective Date of Service: 06/06/20 Primary Care Provider: Dr. Joe Chief Complaint: NSTEMI Subjective: Worsening (Last night patient became febrile, reported "Feeling worse, more fatigue, more short of breath Workup last night found patient to be COVID+, with elevated CRP. CXR: Increased opacities in right lower lung, possible small bilateral effusions, however it is a poor inspiration film, and slightly rotated, pending final read. received 1L NS bolus last night for hypotension - responded) Physical Examination - Vital Signs Temperature: 97.4 F Blood Pressure: 93/44 Pulse: 67 Respirations: 16 Pulse Ox (%): 96 - Physical Exam General: Alert, Other (Appears tired, pale) HEENT: Sclerae nonicteric Respiratory: Diminished (On 3L NC), Crackles/rales (Mild in bilateral bases) Cardiovascular: No edema, Regular rate/rhythm Gastrointestinal: Soft and benign, No tenderness Musculoskeletal: No tenderness Neurological: Normal speech, Normal affect Assessment & Plan Physician Review Additional Text: nonischemic cardiomyopathy, 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 HFrEF, (25-30%) LV mural thrombus COVID+ pneumonia UTI, cystitis HLD DM2 Hypothyroidism nonischemic cardiomyopathy, 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 HFrEF, (25-30%) LV mural thrombus -started on coumadin with lovenox bridge 06/02 with 5mg coumadin for mural thrombus -coumadin 10mg 06/03 and 06/04, INR therapeutic now, 5mg 06/05, continue with 5mg for now -pt on low-dose coreg and lisinopril with holding parameter - pt with low BP - dc'd lisinopril for now -EF: 25-30%, will likely need home oxygen for a few weeks -received 20IV Lasix on 06/04, and 40IV lasix 06/05, patient appears on dry side, received 1L NS bolus last night -cardiology following COVID+ pneumonia -febrile 06/05 evening, CXR now concerning for b/l pneumonia -on 3L NC -reports did visit a friend the week before hospitalization / went out minimally -unlikely to be exposed and seropositive/symptomatic within past 5 days of hospitalization, family have been visiting, but patient reports they are asymptomatic -CRP elevated, decreased today from yesterday, will start prednisone 20mg BID -consult pulmonology UTI, cystitis -received rocephin for UTI (started 06/02) - e.coli+, sensitivities reviewed, now on macrobid HLD, DM2, Hypothyroidism -SSI for glucose management, restarted home PO medications yesterday but now with some hypoglycemia, will continue with SSI only for now, monitor closely now since starting steroids -lasix 20 IV on 06/04, 40mg IV today, will need lasix on discharge Dispo: will need home O2 when ready for discharge, now with COVID pneumonia, possible dc home in 24-48hrs pending improvement lives home alone, not interested in SNF at this time Time Spent Managing Pts Care (In Minutes): 35
--- NOTE | 2020-06-06 08:45 | RAD REPORT ---
EXAM DESCRIPTION: Elisha Single View06/05/2020 11:04 pm CLINICAL HISTORY: Chest pain COMPARISON: May 31, 2020 FINDINGS: Both lung bases are hazy Heart is mildly enlarged IMPRESSION: Both lung bases are hazy probably mild pneumonia
[2020-06-06] MEDS ORDERED: DIPHENOX/ATROP SULF 1 TAB PO PRN (09:58)
[2020-06-06] MEDS: NITROFURAN MACRO 100 MG CAP PO SCH ×2 (10:11→17:10)
[2020-06-06] MEDS: NA CHLORIDE 0.9% 1,000 ML IV SCH ×2 (10:11→19:58)
[2020-06-06] MEDS: DULOXETINE 20 MG CAP PO SCH (10:11)
[2020-06-06] MEDS: ACETAMINOPHEN 325 MG TABLET PO PRN ×2 (10:42→19:58)
[2020-06-06 11:17] LABS: Blood Morphology Comment NOT SEEN (NOT SEEN); Platelet Estimate ADEQ
--- NOTE | 2020-06-06 11:29 | P.CNS ---
Date of Consult: 06/06/20 Primary Care Provider: Dr. Joe Chief Complaint: Nevarez virus infection History of Present Illness: Patient is 70 years of age presented to the emergency room nausea vomiting chest pain shortness of breath fever woke up with some chest pain CO multiple medical problems admitted to the hospital elevated troponin Admitted with a non STEMI seen by Cardiology normal coronary arteries is been a decline in her blood pressure initially tested negative and then repeat testing showed positive for nevarez virus patient is not doing well still complaining of shortness of breath and chest discomfort Allergies No Known Drug Allergies Allergy (Verified 06/14/18 10:24) Unknown Home Medications: Alendronate Sodium [Fosamax] 1 tab PO SEECOM 05/31/20 Amlodipine Besylate [Norvasc] 1 tab PO DAILY 05/31/20 Diphenox/Atropine [Lomotil*] 1 tab PO QID PRN 05/31/20 Duloxetine [Cymbalta *] 1 cap PO DAILY 05/31/20 Levothyroxine [Synthroid*] 1 tab PO [id number] 05/31/20 Losartan/Hydrochlorothiazide [Hyzaar 100-25 Tablet] 1 tab PO DAILY 05/31/20 Lovastatin [Altoprev] 1 tab PO DAILY 05/31/20 Metformin HCl [Glucophage*] 1 tab PO BIDWM 05/31/20 Omeprazole 40 mg PO DAILY 05/31/20 Tramadol HCl [Ultram] 1 tab PO Q6H PRN 05/31/20 carvediloL [Carvedilol] 1 tab PO BID* 05/31/20 clonazePAM [Klonopin*] 1 tab PO BID 05/31/20 glipiZIDE [Glucotrol*] 1 tab PO BID 05/31/20 - Past Medical/Surgical History Diabetic: Yes -: Diabetes mellitus type 2, non insulin dependent -: Hypertension -: Hypothyroidism -: Gout -: GERD -: Restless leg syndrome -: Neuropathy -: RESTLESS LEGS SYNDROME -: bronchitis (november 20, 2014) -: right eye lid weakness -: Hysterectomy, 1977 -: intussusception of intestines -: compression disc fracture -: Carpal tunnel Sx, 1983 -: R. elbow Sx, 1999 -: [place] CATARACT SX 2014 -: colonoscopy date unknown, pt advised -: cholecystectomy Psychosocial/ Personal History: The patient is a . She has 2 children. - Family History Father Medical History: Hypertension, Other (see notes) Notes: Parkinson's Mother Medical History: Hypertension, Diabetes, Stroke, Cancer Notes: breast - Social History Smoking Status: Unknown if ever smoked Alcohol use: No CD- Drugs: No Caffeine use: Yes Place of Residence: Home Review of Systems General: Fever, Weakness Respiratory: Cough, Shortness of Breath Cardiovascular: Chest Pain Physical Examination Temp Pulse Resp BP Pulse Ox 97.4 F 67 16 93/44 L 96 06/06/20 09:04 06/06/20 09:04 06/06/20 09:04 06/06/20 09:04 06/06/20 09:04 General: Alert, Oriented x3, Moderate distress Respiratory: Clear to auscultation bilaterally Cardiovascular: No edema, Regular rate/rhythm, Normal S1 S2 - Problems (1) Coronavirus infection Current Visit: Yes Status: Acute Plan: Patient is 70 years of age admitted with a nevarez virus infection elevated troponin according to cardiology has normal coronary arteries hypotensive mildly anemic patient is on warfarin therapeutic INR she has been in normal sinus rhythm severe congestive heart failure
[2020-06-06] MEDS: ARFORMOTEROL TARTRATE 15 MCG/2 ML VIAL.NEB NEB SCH ×2 (11:31→20:50)
[2020-06-06] MEDS: BUDESONIDE 0.5 MG/2 ML NEB NEB SCH ×2 (11:32→20:50)
[2020-06-06] MEDS: WARFARIN SODIUM 5 MG TAB PO SCH (17:11)
[2020-06-07] MEDS: FENTANYL CITR 100 MCG/2 ML IV PRN ×2 (01:28→05:05)
[2020-06-07] MEDS: ACETAMINOPHEN 325 MG TABLET PO PRN ×3 (02:58→22:57)
[2020-06-07] MEDS: LEVOTHYROXINE SOD 0.125 MG TAB PO SCH (05:03)
[2020-06-07 05:47] LABS: Protime INR 2.48
[2020-06-07 06:02] LABS: C-Reactive Protein 74.4 mg/L (<3.00); Magnesium 1.8 mg/dL (1.8-2.4); Potassium 4.3 mmol/L (3.5-5.1)
[2020-06-07] MEDS: BUDESONIDE 0.5 MG/2 ML NEB NEB SCH ×2 (08:05→20:20)
[2020-06-07] MEDS: ARFORMOTEROL TARTRATE 15 MCG/2 ML VIAL.NEB NEB SCH ×2 (08:05→20:20)
[2020-06-07] MEDS ORDERED: MAGNESIUM SULFATE 1 gm IVPB 1 GM/100 ML BAG IV ONE (09:00)
--- NOTE | 2020-06-07 09:29 | P.PN ---
Subjective Date of Service: 06/07/20 Primary Care Provider: Dr. Joe Chief Complaint: Nevarez virus infection Subjective: No new changes (still feels short of breath, complaining of cough. continues with intermittent chest pain (sternal). tolerating diet, no nausea/vomiting. SpO2: 86% yesterday on RA. 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 HFrEF, (25-30%) LV mural thrombus COVID+ pneumonia UTI, cystitis HLD DM2 Hypothyroidism nonischemic cardiomyopathy, 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 HFrEF, (25-30%) LV mural thrombus -started on coumadin with lovenox bridge 06/02 with 5mg coumadin for mural thrombus -> 10mg 06/03 and 06/04, INR therapeutic now, 5mg 06/05, continue with 5mg for now -pt started on low-dose coreg and lisinopril with holding parameter - but lisinopril was dc'd due to low BP, now more normotensive -EF: 25-30%, will likely need home oxygen for a few weeks -received 20 IV Lasix on 06/04, and 40IV lasix 06/05, received 1L NS bolus on night of 06/05 -cardiology following -continues with chest pain, negative coronary artery disease, she does have some tenderness on palpation that recreates the pain, will try lidocaine patch to area COVID+ pneumonia -febrile 06/05 evening, CXR now concerning for b/l pneumonia -on 3L NC, desats to mid 80s on room air -CRP increased compared to yesterday, on prednisone 20mg BID, continue -pulmonology following -will need home oxygen UTI, cystitis -received rocephin for UTI (started 06/02) - e.coli+, completed treatment HLD, DM2, Hypothyroidism -hyperglycemia now that she is on prednisone -lasix 20 IV on 06/04, 40mg IV today, will need lasix on discharge Dispo: will need home O2; lives home alone, not interested in SNF at this time anticipate dc home tomorrow Time Spent Managing Pts Care (In Minutes): 35
[2020-06-07] MEDS: DULOXETINE 20 MG CAP PO SCH (09:36)
[2020-06-07] MEDS: METFORMIN HCL 850 MG TAB PO SCH ×2 (09:36→16:51)
[2020-06-07] MEDS: clonazePAM 1 MG TAB PO SCH ×2 (09:36→20:31)
[2020-06-07] MEDS: BENZONATATE 100 MG CAP PO PRN ×3 (09:37→22:02)
[2020-06-07] MEDS: predniSONE 20 MG TAB PO SCH ×2 (09:37→20:31)
[2020-06-07] MEDS: carvediloL 6.25 MG TAB PO SCH ×2 (09:37→20:31)
[2020-06-07] MEDS: INSULIN -REGULAR HUMAN 50 UNIT/0.5 ML ML SQ SCH ×4 (09:37→20:31)
[2020-06-07] MEDS: glipiZIDE 5 MG TAB PO SCH ×2 (09:37→17:15)
[2020-06-07] MEDS: LIDOCAINE 4% PATCH TOP SCH (09:56)
[2020-06-07] MEDS: ONDANSETRON 4 MG/2 ML VIAL IV PRN (10:27)
[2020-06-07] MEDS: GUAIFENESIN/CODEINE 5ML UCUP PO PRN ×2 (15:07→20:31)
[2020-06-07] MEDS: WARFARIN SODIUM 5 MG TAB PO SCH (16:51)
[2020-06-07] MEDS: INSULIN GLARGINE 100 UNITS/ML SQ SCH (20:30)
[2020-06-08] MEDS ORDERED: MORPHINE 2 MG/ML SYR IV ONE (00:35)
[2020-06-08] MEDS: GUAIFENESIN/CODEINE 5ML UCUP PO PRN ×3 (01:38→22:06)
[2020-06-08] MEDS: BENZONATATE 100 MG CAP PO PRN ×3 (04:39→20:46)
[2020-06-08 04:50] LABS: Protime INR 3.82
[2020-06-08] MEDS: LEVOTHYROXINE SOD 0.125 MG TAB PO SCH (05:04)
[2020-06-08 05:28] LABS: C-Reactive Protein 60.1 mg/L (<3.00)
[2020-06-08 05:40] LABS: Magnesium 1.9 mg/dL (1.8-2.4); Potassium 4.8 mmol/L (3.5-5.1)
[2020-06-08] MEDS: ACETAMINOPHEN 325 MG TABLET PO PRN ×3 (06:49→22:25)
[2020-06-08] MEDS: ARFORMOTEROL TARTRATE 15 MCG/2 ML VIAL.NEB NEB SCH ×2 (07:45→20:40)
[2020-06-08] MEDS: BUDESONIDE 0.5 MG/2 ML NEB NEB SCH ×2 (07:45→20:40)
[2020-06-08] MEDS: glipiZIDE 5 MG TAB PO SCH ×2 (08:40→16:41)
[2020-06-08] MEDS: METFORMIN HCL 850 MG TAB PO SCH ×2 (08:40→16:41)
[2020-06-08] MEDS: carvediloL 6.25 MG TAB PO SCH ×2 (08:40→20:41)
[2020-06-08] MEDS: predniSONE 20 MG TAB PO SCH ×2 (08:40→20:41)
[2020-06-08] MEDS: DULOXETINE 20 MG CAP PO SCH (08:40)
[2020-06-08] MEDS: LIDOCAINE 4% PATCH TOP SCH (08:41)
[2020-06-08] MEDS: INSULIN -REGULAR HUMAN 50 UNIT/0.5 ML ML SQ SCH ×4 (08:42→20:41)
[2020-06-08] MEDS ORDERED: FUROSEMIDE 20 MG/ 2ML VIAL IV ONE (09:55)
--- NOTE | 2020-06-08 11:20 | P.PN ---
Subjective Date of Service: 06/08/20 Primary Care Provider: Dr. Joe Chief Complaint: Nevarez virus infection Subjective: Worsening (Increase shortness of breath overnight, desaturating down to 80%, was placed on high-flow nasal cannula. Patient reports not feeling well overall, more tired today) Review of Systems 10-point ROS is otherwise unremarkable Physical Examination - Vital Signs Temperature: 98.5 F Blood Pressure: 117/62 Pulse: 77 Respirations: 22 Pulse Ox (%): 89 - Physical Exam General: Alert, Oriented x3, Mild distress HEENT: Sclerae nonicteric Respiratory: Other (tachypneic, on HFNC) Cardiovascular: Regular rate/rhythm, Edema (Trace bilaterally to ankles) Gastrointestinal: Soft and benign, No tenderness Integumentary: No rashes Neurological: Normal speech Assessment & Plan Physician Review Additional Text: nonischemic cardiomyopathy, 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 HFrEF, (25-30%) LV mural thrombus COVID+ pneumonia UTI, cystitis HLD DM2 Hypothyroidism nonischemic cardiomyopathy, 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 HFrEF, (25-30%) LV mural thrombus -started coumadin 06/02 w/ lovenox bridge at 5mg, 10mg on 06/03-, 5mg 06/05- -no supratherapeutic, will hold Coumadin today, and decrease dose while on steorids, the patient was started on prednisone which is likely contributing -pt started on low-dose coreg, lisinopril dc'd due to hypotension, restart at low dose as appropriate -suspect SOB is in part due to volume status as patient received bolus ~2 days ago, will give 20 IV Lasix today -chest pain with tenderness on palpation, some improvement with lidocaine patch COVID+ pneumonia -febrile 06/05 evening, CXR now concerning for b/l pneumonia -off/on HFNC now, worsening respiratory function -CRP decreasing, continue prednisone 20 mg b.i.d. -pulmonology following UTI, cystitis, resolved -received rocephin for UTI (started 06/02) - e.coli+, completed treatment HLD, DM2, Hypothyroidism -hyperglycemia now that she is on prednisone. Start basal insulin yesterday Dispo: worsening respiratory status, COVID pneumonia and severely depressed EF, will likely need hospitalization another ~48hrs or so has not gotten up much, PT/OT consulted, lives home alone, may need to consider SNF if possible, pt refused when discussed yesterday Time Spent Managing Pts Care (In Minutes): 35
--- NOTE | 2020-06-08 13:05 | RAD REPORT ---
EXAM DESCRIPTION: RAD - Chest Single View - 06/08/2020 11:28 am CLINICAL HISTORY: desaturation, SOB, h/o CHF COMPARISON: Portable June 05 TECHNIQUE: AP portable chest image was obtained 06/08/2020 11:28 am . FINDINGS: Chest has substantially worsened. There is extensive bilateral airspace opacification. Thi s is in the peripheral mid and lower left lung field and both upper lower lung gutiérrez on the right. T his is a very substantial change from prior imaging. Slightly atypical presentation of CHF would be the most likely etiology. Bilateral pneumonia could cardoza ve this presentation as well. Heart size is upper normal but stable. No pneumothorax. No large pleural effusion. No acute bony abn ormality seen. No acute aortic findings suspected. IMPRESSION: Extensive bilateral airspace opacification has developed. This is most likely an atypica l presentation of CHF. Bilateral pneumonia is possible as well.
[2020-06-08] MEDS: ONDANSETRON 4 MG/2 ML VIAL IV PRN (14:44)
[2020-06-08] MEDS ORDERED: FUROSEMIDE 20 MG TABLET PO ONE (15:59)
[2020-06-08] MEDS: INSULIN GLARGINE 100 UNITS/ML SQ SCH (20:41)
[2020-06-08] MEDS: clonazePAM 1 MG TAB PO PRN (20:46)
[2020-06-09] MEDS: BENZONATATE 100 MG CAP PO PRN ×2 (01:50→16:54)
[2020-06-09] MEDS: ONDANSETRON 4 MG/2 ML VIAL IV PRN (03:57)
[2020-06-09] MEDS: GUAIFENESIN/CODEINE 5ML UCUP PO PRN ×3 (03:57→16:54)
[2020-06-09] MEDS: ACETAMINOPHEN 325 MG TABLET PO PRN ×2 (04:56→20:41)
[2020-06-09] MEDS: LEVOTHYROXINE SOD 0.125 MG TAB PO SCH (05:00)
[2020-06-09 06:35] LABS: C-Reactive Protein 96.2 mg/L (<3.00); Magnesium 1.5 mg/dL (1.8-2.4); Potassium 4.6 mmol/L (3.5-5.1)
--- NOTE | 2020-06-09 07:01 | RAD REPORT ---
EXAM DESCRIPTION: RAD - Chest Single View - 06/09/2020 5:31 am CLINICAL HISTORY: SOB, CHF, COVID+ COMPARISON: June 08 TECHNIQUE: AP portable chest image was obtained 06/09/2020 5:31 am . FINDINGS: Lungs are clear. Extensive bilateral airspace opacification is present. Right lung field i s stable. Left lung field may be slightly worse in the upper lung field. There is been no improvement . No pneumothorax present. No right-sided pleural effusion seen. Left pleural effusion is possible. No acute bony abnormality seen. No acute aortic findings suspected. IMPRESSION: Extensive bilateral pneumonia pattern showing no improvement. Patient could be fractiona lly worse in the left upper lung field.
[2020-06-09] MEDS ORDERED: FUROSEMIDE 20 MG/ 2ML VIAL IV ONE (07:18)
[2020-06-09 07:41] LABS: Protime INR 3.51
[2020-06-09] MEDS: carvediloL 6.25 MG TAB PO SCH ×2 (07:50→20:40)
[2020-06-09] MEDS: DULOXETINE 20 MG CAP PO SCH (07:51)
[2020-06-09] MEDS: predniSONE 20 MG TAB PO SCH (07:51)
[2020-06-09] MEDS: glipiZIDE 5 MG TAB PO SCH ×2 (07:51→16:29)
[2020-06-09] MEDS: METFORMIN HCL 850 MG TAB PO SCH ×2 (07:51→16:29)
[2020-06-09] MEDS: LIDOCAINE 4% PATCH TOP SCH (07:51)
[2020-06-09] MEDS: INSULIN -REGULAR HUMAN 50 UNIT/0.5 ML ML SQ SCH ×4 (07:52→21:23)
--- NOTE | 2020-06-09 08:09 | P.PN ---
Subjective Date of Service: 06/09/20 Primary Care Provider: Dr. Joe Chief Complaint: Nevarez virus infection Subjective: Worsening (feels worse this morning, continues with SOB, cough, and rib pain from coughing. 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 HFrEF, (25-30%) LV mural thrombus COVID+ pneumonia UTI, cystitis HLD DM2 Hypothyroidism nonischemic cardiomyopathy, 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 HFrEF, (25-30%) LV mural thrombus -started coumadin 06/02 w/ lovenox bridge at 5mg, 10mg on , 5mg 06/05- , held on due to supratherapeutic dose - due to steroid use -hold today, increasing steroid dosage, pred -> solumedrol today -pt started on low-dose coreg, restart low dose lisinopril since BP higher -received 20IV lasix and 20 PO yesterday, will give 20 IV today COVID+ pneumonia -febrile 06/05 evening, CXR with worsening b/l pneumonia -pulmonology consulted -on HFNC now, worsening respiratory function, desaturating quickly per nursing staff -CRP now increasing, will increase Pred 20mg BID to solumedrol 40 q8h UTI, cystitis, resolved -received rocephin for UTI (started 06/02) - e.coli+, completed treatment HLD, DM2, Hypothyroidism -hyperglycemia now that she is on prednisone. basal insulin started on 06/07 Dispo: worsening respiratory status, COVID pneumonia and severely depressed EF, will likely need hospitalization another ~48hrs or so has not gotten up much, will need PT/OT evaluation once breathing more comfortably, lives home alone, may need to consider SNF Time Spent Managing Pts Care (In Minutes): 35
[2020-06-09] MEDS: ARFORMOTEROL TARTRATE 15 MCG/2 ML VIAL.NEB NEB SCH (08:35)
[2020-06-09] MEDS: BUDESONIDE 0.5 MG/2 ML NEB NEB SCH (08:35)
[2020-06-09] MEDS ORDERED: METHYLPREDNISOLONE 40 MG INJ IV SCH (09:00)
[2020-06-09] MEDS ORDERED: lisinopriL 5 MG TAB PO SCH (09:00)
[2020-06-09] MEDS: clonazePAM 1 MG TAB PO PRN (10:10)
[2020-06-09] MEDS ORDERED: Magnesium Sulfate 2gm IVPB 2 G/50 ML BAG IV ONE (11:53)
[2020-06-09] MEDS ORDERED: METHYLPREDNISOLONE 125 MG INJ IV ONE (12:11)
--- NOTE | 2020-06-09 12:12 | P.PN ---
Subjective Date of Service: 06/09/20 Primary Care Provider: Dr. Joe Chief Complaint: Respiratory failure from coronal wire Patient's condition has worsened chest x-rays also looks worse Chris requirements have increased significantly Review of Systems General: Weakness Respiratory: Shortness of Breath Physical Examination - Vital Signs Temperature: 99 F Blood Pressure: 125/68 Pulse: 85 Respirations: 26 Pulse Ox (%): 87 Assessment & Plan - Problems (Diagnosis) (1) Coronavirus infection Current Visit: Yes Status: Acute Plan: Patient is 70 years of age admitted with a bullard virus infection elevated troponin according to cardiology has normal coronary arteries hypotensive mildly anemic patient is on warfarin therapeutic INR she has been in normal sinus rhythm severe congestive heart failure REmdesmir ordered (2) Acute respiratory failure due to severe acute respiratory syndrome coronavirus 2 (SARS-CoV-2) infection Current Visit: Yes Status: Acute Plan: Patient has developed progressive ARDS continue with steroids I have added spironolactone private branch exchange service adviser to BiPAP (3) CHF (congestive heart failure) Current Visit: Yes Status: Acute Plan: Patient has cardiomyopathy with left ventricular thrombus fully anti coagulated with Coumadin continue with negative fluid balance Qualifiers: Heart failure chronicity: acute Physician Review: Patient Assessed, Agree with Above Assessment and Plan
[2020-06-09] MEDS: SPIRONOLACTONE 25 MG TABLET PO SCH ×2 (12:20→20:39)
[2020-06-09 13:43] LABS: ALT/SGPT 29 U/L (12-78); AST/SGOT 45 U/L (15-37); Albumin 2.2 g/dL (3.4-5.0); Alkaline Phosphatase 47 U/L (45-117); Bilirubin Direct < 0.1 mg/dL (0-0.2); Bilirubin Total 0.3 mg/dL (0.2-1.0); Protein, Total 5.9 g/dL (6.4-8.2)
[2020-06-09] MEDS ORDERED: Remdesivir 200 MG in NA CHLORIDE 0.9% 250 ML IV ONE (15:00)
[2020-06-09] MEDS: METHYLPREDNISOLONE 125 MG INJ IV SCH (16:30)
[2020-06-09] MEDS ORDERED: METHYLPREDNISOLONE 125 MG INJ IV SCH (17:00)
[2020-06-09] MEDS: INSULIN GLARGINE 100 UNITS/ML SQ SCH (21:23)
[2020-06-10] MEDS: GUAIFENESIN/CODEINE 5ML UCUP PO PRN ×3 (00:20→17:05)
[2020-06-10] MEDS: METHYLPREDNISOLONE 125 MG INJ IV SCH ×3 (00:22→16:31)
[2020-06-10 05:07] LABS: Protime INR 2.78
[2020-06-10] MEDS: LEVOTHYROXINE SOD 0.125 MG TAB PO SCH (05:10)
[2020-06-10] MEDS: BENZONATATE 100 MG CAP PO PRN ×2 (05:10→20:57)
[2020-06-10 05:36] LABS: ALT/SGPT 25 U/L (12-78); AST/SGOT 26 U/L (15-37); Albumin 1.9 g/dL (3.4-5.0); Alkaline Phosphatase 45 U/L (45-117); BUN Blood Urea Nitrogen 43 mg/dL (7-18); Bicarbonate 32 mmol/L (21-32); Bilirubin Direct < 0.1 mg/dL (0-0.2); Bilirubin Total 0.3 mg/dL (0.2-1.0); Glucose Level 172 mg/dL (74-106); Magnesium 2.1 mg/dL (1.8-2.4); Potassium 4.5 mmol/L (3.5-5.1); Protein, Total 5.6 g/dL (6.4-8.2); Sodium Level 139 mmol/L (136-145)
[2020-06-10] MEDS: INSULIN -REGULAR HUMAN 50 UNIT/0.5 ML ML SQ SCH ×4 (09:28→20:36)
[2020-06-10] MEDS: METFORMIN HCL 850 MG TAB PO SCH ×2 (09:29→16:31)
[2020-06-10] MEDS: carvediloL 6.25 MG TAB PO SCH ×2 (09:30→20:35)
[2020-06-10] MEDS: DULOXETINE 20 MG CAP PO SCH (09:30)
[2020-06-10] MEDS: LIDOCAINE 4% PATCH TOP SCH (09:30)
[2020-06-10] MEDS: SPIRONOLACTONE 25 MG TABLET PO SCH ×2 (09:30→20:34)
[2020-06-10] MEDS: Remdesivir 100 MG in NA CHLORIDE 0.9% 250 ML IV SCH (09:34)
[2020-06-10] MEDS: clonazePAM 1 MG TAB PO PRN ×2 (09:42→20:39)
[2020-06-10] MEDS: glipiZIDE 5 MG TAB PO SCH ×2 (10:13→16:51)
[2020-06-10] MEDS: HYDROCODONE/APAP 5/325 MG TAB PO PRN ×2 (10:53→20:35)
--- NOTE | 2020-06-10 11:09 | P.PN ---
Subjective Date of Service: 06/10/20 Primary Care Provider: Dr. Joe Chief Complaint: Respiratory failure from coronal wire Patient currently on high-flow oxygen. She is complaining of intermittent chest pain and headache. She has been afebrile. Physical Examination - Vital Signs Temperature: 97.9 F Blood Pressure: 107/69 Pulse: 75 Respirations: 26 Pulse Ox (%): 89 - Physical Exam General: Alert, In no apparent distress Neck: Supple, JVD not distended Respiratory: Normal air movement, Crackles/rales Cardiovascular: No edema, Regular rate/rhythm Gastrointestinal: Soft and benign, Non-distended Musculoskeletal: No swelling, No erythema Integumentary: No rashes Neurological: Other (Nonfocal) Assessment And Plan - Current Problems (Diagnosis) (1) NSTEMI (non-ST elevated myocardial infarction) Current Visit: Yes Status: Acute (2) Hyperlipidemia Current Visit: Yes Status: Chronic Qualifiers: Hyperlipidemia type: unspecified Qualified Code(s): E78.5 - Hyperlipidemia, unspecified (3) Diabetes mellitus, type II Onset Date: 06/12/18 Current Visit: No Status: Acute Qualifiers: Diabetes mellitus usp insulin use: with usp use Diabetes mellitus complication status: without complication Qualified Code(s): E11.9 - Type 2 diabetes mellitus without complications; Z79.4 - technician terminal and repeater (current) use of insulin (4) Nausea & vomiting Onset Date: 06/12/18 Current Visit: No Status: Acute (5) Hypothyroidism Onset Date: 06/12/18 Current Visit: No Status: Chronic Qualifiers: Hypothyroidism type: acquired Qualified Code(s): E03.9 - Hypothyroidism, unspecified (6) UTI (urinary tract infection) Current Visit: Yes Status: Acute (7) Systolic congestive heart failure with reduced left ventricular function, NYHA class 1 Current Visit: Yes Status: Acute (8) LV (left ventricular) mural thrombus Current Visit: Yes Status: Acute (9) Pneumonia due to COVID-19 virus Current Visit: Yes Status: Acute (10) Acute respiratory failure with hypoxia Current Visit: Yes Status: Acute - Plan Continue IV steroid. Patient is getting Remdesivir. Titrate oxygen. Monitor CRP Continue Coumadin anticoagulation Monitor PT and INR. Patient placed on low-dose Coreg. Lisinopril on hold. Patient started on Aldactone. UTI adequately treated with IV Rocephin. [place] p.r.n. for pain Insulin sliding scale, Lantus insulin, metformin and oral hypoglycemics for glucose management. Monitor renal function. PT evaluation once patient has been weaned off high-flow oxygen. 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 HFrEF, (25-30%) LV mural thrombus -started coumadin 06/02 w/ lovenox bridge at 5mg, 10mg on 06/03-, 5mg 06/05- , held on due to supratherapeutic dose - due to steroid use -hold today, increasing steroid dosage, pred -> solumedrol today -pt started on low-dose coreg, restart low dose lisinopril since BP higher -received 20IV lasix and 20 PO yesterday, will give 20 IV today COVID+ pneumonia -febrile 06/05 evening, CXR with worsening b/l pneumonia -pulmonology consulted -on HFNC now, worsening respiratory function, desaturating quickly per nursing staff -CRP now increasing, will increase Pred 20mg BID to solumedrol 40 q8h UTI, cystitis, resolved -received rocephin for UTI (started 06/02) - e.coli+, completed treatment HLD, DM2, Hypothyroidism -hyperglycemia now that she is on prednisone. basal insulin started on 06/07 Dispo: worsening respiratory status, COVID pneumonia and severely depressed EF, will likely need hospitalization another ~48hrs or so has not gotten up much, will need PT/OT evaluation once breathing more comfortably, lives home alone, may need to consider SNF
[2020-06-10] MEDS ORDERED: FUROSEMIDE 20 MG TABLET PO SCH (12:09)
--- NOTE | 2020-06-10 12:12 | P.PN ---
Subjective Date of Service: 06/14/20 Primary Care Provider: Dr. Joe Chief Complaint: Respiratory failure from bullard virus Patient is improving feels better today coughing has improved Review of Systems General: Weakness Respiratory: Cough, Shortness of Breath Physical Examination - Vital Signs Temperature: 97.9 F Blood Pressure: 107/69 Pulse: 75 Respirations: 26 Pulse Ox (%): 89 - Physical Exam General: Alert, In no apparent distress, Mild distress Respiratory: Crackles/rales Cardiovascular: No edema, Normal S1 S2 Assessment & Plan - Problems (Diagnosis) (1) Coronavirus infection Current Visit: Yes Status: Acute Plan: Patient is 70 years of age admitted with a bullard virus infection elevated troponin according to cardiology has normal coronary arteries hypotensive mildly anemic patient is on warfarin therapeutic INR she has been in normal sinus rhythm severe congestive heart failure REmdesmir ordered (2) Acute respiratory failure due to severe acute respiratory syndrome coronavirus 2 (SARS-CoV-2) infection Current Visit: Yes Status: Acute Plan: Patient is clinically improving continue with present treatment (3) CHF (congestive heart failure) Current Visit: Yes Status: Acute Plan: Patient has cardiomyopathy with left ventricular thrombus fully anti coagulated with Coumadin continue with negative fluid balance also added Lasix today on 75% FiO2 Qualifiers: Heart failure chronicity: acute Physician Review: Patient Assessed, Agree with Above Assessment and Plan
[2020-06-10] MEDS: INSULIN GLARGINE 100 UNITS/ML SQ SCH (20:37)
[2020-06-11] MEDS: METHYLPREDNISOLONE 125 MG INJ IV SCH ×3 (00:14→19:34)
[2020-06-11] MEDS: GUAIFENESIN/CODEINE 5ML UCUP PO PRN ×4 (00:14→19:33)
[2020-06-11 05:13] LABS: Protime INR 2.16
[2020-06-11] MEDS: LEVOTHYROXINE SOD 0.125 MG TAB PO SCH (05:43)
[2020-06-11] MEDS: HYDROCODONE/APAP 5/325 MG TAB PO PRN ×3 (05:43→17:18)
[2020-06-11] MEDS: BENZONATATE 100 MG CAP PO PRN (05:43)
[2020-06-11 05:47] LABS: ALT/SGPT 23 U/L (12-78); AST/SGOT 21 U/L (15-37); Albumin 1.8 g/dL (3.4-5.0); Alkaline Phosphatase 43 U/L (45-117); BUN Blood Urea Nitrogen 74 mg/dL (7-18); Bicarbonate 31 mmol/L (21-32); Bilirubin Direct < 0.1 mg/dL (0-0.2); Bilirubin Total 0.2 mg/dL (0.2-1.0); Ferritin 215.2 ng/mL (8-388); Glucose Level 204 mg/dL (74-106); Magnesium 2.1 mg/dL (1.8-2.4); Potassium 4.9 mmol/L (3.5-5.1); Protein, Total 5.5 g/dL (6.4-8.2); Sodium Level 139 mmol/L (136-145)
[2020-06-11] MEDS ORDERED: PHENOL 1.4% ORAL SPRAY 180ML MM PRN (08:13)
[2020-06-11] MEDS: glipiZIDE 5 MG TAB PO SCH ×2 (09:02→17:19)
[2020-06-11] MEDS: SPIRONOLACTONE 25 MG TABLET PO SCH ×2 (09:03→19:34)
[2020-06-11] MEDS: DULOXETINE 20 MG CAP PO SCH (09:03)
[2020-06-11] MEDS: METFORMIN HCL 850 MG TAB PO SCH ×2 (09:03→17:19)
[2020-06-11] MEDS: LIDOCAINE 4% PATCH TOP SCH (09:03)
[2020-06-11] MEDS: INSULIN -REGULAR HUMAN 50 UNIT/0.5 ML ML SQ SCH ×4 (09:03→20:26)
[2020-06-11] MEDS: carvediloL 6.25 MG TAB PO SCH ×2 (09:04→19:34)
[2020-06-11] MEDS: Remdesivir 100 MG in NA CHLORIDE 0.9% 250 ML IV SCH (10:09)
--- NOTE | 2020-06-11 11:15 | P.PN ---
Subjective Date of Service: 06/11/20 Primary Care Provider: Dr. Joe Chief Complaint: Respiratory failure from bullard virus Patient placed on BiPAP ventilation last night. She is awake and interactive She has been afebrile. Her blood pressure has been soft. Physical Examination - Vital Signs Temperature: 98.1 F Blood Pressure: 109/68 Pulse: 64 Respirations: 12 Pulse Ox (%): 95 - Physical Exam General: Mild distress, Other (Awake) Respiratory: Crackles/rales (Bilateral) Cardiovascular: No edema, Irregular heart rate/rhythm Gastrointestinal: Non-distended Musculoskeletal: No swelling Integumentary: No rashes, No erythema Neurological: Other (Nonfocal) Assessment And Plan - Current Problems (Diagnosis) (1) NSTEMI (non-ST elevated myocardial infarction) Current Visit: Yes Status: Acute (2) Hyperlipidemia Current Visit: Yes Status: Chronic Qualifiers: Hyperlipidemia type: unspecified Qualified Code(s): E78.5 - Hyperlipidemia, unspecified (3) Diabetes mellitus, type II Onset Date: 06/12/18 Current Visit: No Status: Acute Qualifiers: Diabetes mellitus stratigraphy teacher insulin use: with stratigraphy teacher use Diabetes mellitus complication status: without complication Qualified Code(s): E11.9 - Type 2 diabetes mellitus without complications; Z79.4 - helper animal laboratory (current) use of insulin (4) Nausea & vomiting Onset Date: 06/12/18 Current Visit: No Status: Acute (5) Hypothyroidism Onset Date: 06/12/18 Current Visit: No Status: Chronic Qualifiers: Hypothyroidism type: acquired Qualified Code(s): E03.9 - Hypothyroidism, unspecified (6) UTI (urinary tract infection) Current Visit: Yes Status: Acute (7) Systolic congestive heart failure with reduced left ventricular function, NYHA class 1 Current Visit: Yes Status: Acute (8) LV (left ventricular) mural thrombus Current Visit: Yes Status: Acute (9) Pneumonia due to COVID-19 virus Current Visit: Yes Status: Acute (10) Acute respiratory failure with hypoxia Current Visit: Yes Status: Acute - Plan Continue IV steroid. Patient is getting Remdesivir. Titrate oxygen. Monitor CRP Continue Coumadin anticoagulation Monitor PT and INR. Patient placed on low-dose Coreg. Lisinopril on hold due to soft blood pressure. Patient started on Aldactone. UTI adequately treated with IV Rocephin. [place] p.r.n. for pain Insulin sliding scale, Lantus insulin, metformin and oral hypoglycemics for glucose management. Monitor renal function. PT evaluation once patient has been weaned off high-flow oxygen. Prognosis is guarded.
--- NOTE | 2020-06-11 12:45 | P.PN ---
Subjective Date of Service: 06/14/20 Primary Care Provider: Dr. Joe Chief Complaint: Respiratory failure from bullard virus P patient is gradually improving oxygen requirements are declining requiring high-flow heating and drinking well Review of Systems General: Weakness Respiratory: Shortness of Breath Physical Examination - Vital Signs Temperature: 98.1 F Blood Pressure: 109/68 Pulse: 64 Respirations: 12 Pulse Ox (%): 95 - Physical Exam General: Alert, In no apparent distress, Oriented x3, Cooperative Assessment & Plan - Problems (Diagnosis) (1) Coronavirus infection Current Visit: Yes Status: Acute Plan: Positive for bullard virus (2) Acute respiratory failure due to severe acute respiratory syndrome coronavirus 2 (SARS-CoV-2) infection Current Visit: Yes Status: Acute Plan: Patient is improving CRP is declining on high-flow with FiO2 of 65% renal function is slightly worse (3) CHF (congestive heart failure) Current Visit: Yes Status: Acute Plan: Continue with Lasix and anticoagulation Qualifiers: Heart failure chronicity: acute Physician Review: Patient Assessed, Agree with Above Assessment and Plan
[2020-06-11] MEDS: THIAMINE HCL 100 MG TABLET PO SCH (14:30)
[2020-06-11] MEDS: ACETAMINOPHEN 325 MG TABLET PO PRN (15:49)
[2020-06-11] MEDS: WARFARIN SODIUM 4 MG TAB PO SCH (17:19)
[2020-06-11] MEDS: clonazePAM 1 MG TAB PO PRN (19:33)
[2020-06-11] MEDS: ATORVASTATIN 40 MG TAB PO SCH (19:34)
[2020-06-11] MEDS: MELATONIN 3 MG TABLET PO SCH (19:34)
[2020-06-11] MEDS ORDERED: GABAPENTIN 300 MG CAP PO ONE (20:23)
[2020-06-11] MEDS: INSULIN GLARGINE 100 UNITS/ML SQ SCH (20:25)
[2020-06-12] MEDS: HYDROCODONE/APAP 5/325 MG TAB PO PRN (02:39)
[2020-06-12 05:59] LABS: Absolute Lymphocytes (CBC) 0.3 K/uL (0.7-4.9); Basophils % 0.1 % (0-1.3); Hematocrit 25.9 % (36.0-45.0); Lymphocytes % 1.9 % (15.3-44.8); MPV 9.1 fL (7.6-11.3); RBC Red Blood Cell Count 3.13 M/uL (3.86-4.86)
[2020-06-12] MEDS: LEVOTHYROXINE SOD 0.125 MG TAB PO SCH (06:00)
[2020-06-12 06:05] LABS: Protime INR 1.89
[2020-06-12 06:37] LABS: ALT/SGPT 21 U/L (12-78); AST/SGOT 19 U/L (15-37); Albumin 1.9 g/dL (3.4-5.0); Alkaline Phosphatase 42 U/L (45-117); BUN Blood Urea Nitrogen 84 mg/dL (7-18); Bicarbonate 29 mmol/L (21-32); Bilirubin Direct < 0.1 mg/dL (0-0.2); Bilirubin Total 0.4 mg/dL (0.2-1.0); Glucose Level 159 mg/dL (74-106); Potassium 4.8 mmol/L (3.5-5.1); Protein, Total 5.4 g/dL (6.4-8.2); Sodium Level 141 mmol/L (136-145)
--- NOTE | 2020-06-12 07:07 | RAD REPORT ---
EXAM DESCRIPTION: RAD - Chest Single View - 06/12/2020 5:38 am CLINICAL HISTORY: Pneumonia and CHF COMPARISON: June 09 TECHNIQUE: AP portable chest image was obtained 06/12/2020 5:38 am . FINDINGS: Extensive airspace opacification in the right hemithorax has not changed significantly. Th ere may be some minimal improvement in the lower right lung field. Upper left lung field opacificatio n has shown moderate improvement. There has been substantial clearing of the left lung base. Heart size is slightly enlarged. Mediastinum is distorted by rotation. Vasculature of the upper chest obscured by the lung parenchymal opacities. No measurable pleural effusion and no pneumothorax. IMPRESSION: Significant improvement in the left base since prior imaging. Moderate improvement elsew here in the chest.
[2020-06-12] MEDS: INSULIN -REGULAR HUMAN 50 UNIT/0.5 ML ML SQ SCH ×4 (07:30→21:00)
[2020-06-12 09:03] LABS: Blood Morphology Comment NOTED (NOT SEEN); Hypochromasia 1+; Platelet Estimate ADEQ; White Blood Cell Scan OK (OK)
[2020-06-12] MEDS: glipiZIDE 5 MG TAB PO SCH ×2 (10:42→16:14)
[2020-06-12] MEDS: carvediloL 6.25 MG TAB PO SCH ×2 (10:42→21:20)
[2020-06-12] MEDS: METFORMIN HCL 850 MG TAB PO SCH ×2 (10:43→16:14)
[2020-06-12] MEDS: SPIRONOLACTONE 25 MG TABLET PO SCH (10:43)
[2020-06-12] MEDS: THIAMINE HCL 100 MG TABLET PO SCH (10:43)
[2020-06-12] MEDS: Remdesivir 100 MG in NA CHLORIDE 0.9% 250 ML IV SCH (10:44)
[2020-06-12] MEDS: DULOXETINE 20 MG CAP PO SCH (10:44)
[2020-06-12] MEDS: LIDOCAINE 4% PATCH TOP SCH (10:44)
[2020-06-12] MEDS: METHYLPREDNISOLONE 125 MG INJ IV SCH ×2 (10:44→21:22)
--- NOTE | 2020-06-12 11:57 | P.PN ---
Subjective Date of Service: 06/12/20 Primary Care Provider: Dr. Joe Chief Complaint: Respiratory failure from bullard virus No major changes from yesterday. Chest x-ray demonstrate improvement in the infiltrate She has been afebrile. Her blood pressure has been soft. Physical Examination - Vital Signs Temperature: 97 F Blood Pressure: 103/52 Pulse: 77 Respirations: 15 Pulse Ox (%): 93 - Physical Exam General: In no apparent distress, Other (Awake) Neck: Supple, JVD not distended Cardiovascular: No edema, Normal S1 S2, Irregular heart rate/rhythm Gastrointestinal: Non-distended Musculoskeletal: No swelling Integumentary: No rashes, No erythema Neurological: Other (Nonfocal) Assessment And Plan - Current Problems (Diagnosis) (1) NSTEMI (non-ST elevated myocardial infarction) Current Visit: Yes Status: Acute (2) Hyperlipidemia Current Visit: Yes Status: Chronic Qualifiers: Hyperlipidemia type: unspecified Qualified Code(s): E78.5 - Hyperlipidemia, unspecified (3) Diabetes mellitus, type II Onset Date: 06/12/18 Current Visit: No Status: Acute Qualifiers: Diabetes mellitus jail insulin use: with terminal operations manager use Diabetes mellitus complication status: without complication Qualified Code(s): E11.9 - Type 2 diabetes mellitus without complications; Z79.4 - skilled nursing (current) use of insulin (4) Nausea & vomiting Onset Date: 06/12/18 Current Visit: No Status: Acute (5) Hypothyroidism Onset Date: 06/12/18 Current Visit: No Status: Chronic Qualifiers: Hypothyroidism type: acquired Qualified Code(s): E03.9 - Hypothyroidism, unspecified (6) UTI (urinary tract infection) Current Visit: Yes Status: Acute (7) Systolic congestive heart failure with reduced left ventricular function, NYHA class 1 Current Visit: Yes Status: Acute (8) LV (left ventricular) mural thrombus Current Visit: Yes Status: Acute (9) Pneumonia due to COVID-19 virus Current Visit: Yes Status: Acute (10) Acute respiratory failure with hypoxia Current Visit: Yes Status: Acute (11) Acute renal failure Current Visit: Yes Status: Acute - Plan Continue IV steroid. Patient should complete Remdesivir tomorrow. Titrate oxygen. Monitor inflammatory markers. Continue Coumadin anticoagulation Monitor PT and INR. Patient placed on low-dose Coreg. Lisinopril on hold due to soft blood pressure. Continual Aldactone [place] p.r.n. for pain Insulin sliding scale, Lantus insulin, metformin and oral hypoglycemics for glucose management. Monitor renal function. PT evaluation once patient has been weaned off high-flow oxygen. Lasix is on hold given rise in serum creatinine. Monitor BMP. Prognosis is guarded.
--- NOTE | 2020-06-12 12:37 | P.PN ---
Subjective Date of Service: 06/14/20 Primary Care Provider: Dr. Joe Chief Complaint: Respiratory failure from bullard virus Patient is subjectively improving although still requiring high concentrations of oxygen Review of Systems General: Weakness Respiratory: Shortness of Breath Physical Examination - Vital Signs Temperature: 97 F Blood Pressure: 103/52 Pulse: 77 Respirations: 15 Pulse Ox (%): 93 Assessment & Plan - Problems (Diagnosis) (1) Coronavirus infection Current Visit: Yes Status: Acute Plan: Positive for bullard virus (2) Acute respiratory failure due to severe acute respiratory syndrome coronavirus 2 (SARS-CoV-2) infection Current Visit: Yes Status: Acute Plan: Respiratory failure from coronal virus CRP is declining reduce the dose of Solu- Medrol renal function worse Dc spironolactone patient is subjectively improving titrate O2 88 min and percent prone position ventilation blood sugars elevated (3) CHF (congestive heart failure) Current Visit: Yes Status: Acute Plan: Continue with Lasix and anticoagulation Qualifiers: Heart failure chronicity: acute Physician Review: Patient Assessed, Agree with Above Assessment and Plan
[2020-06-12] MEDS: WARFARIN SODIUM 4 MG TAB PO SCH (16:14)
[2020-06-12] MEDS: MELATONIN 3 MG TABLET PO SCH (21:19)
[2020-06-12] MEDS: ATORVASTATIN 40 MG TAB PO SCH (21:20)
[2020-06-12] MEDS: INSULIN GLARGINE 100 UNITS/ML SQ SCH (21:21)
[2020-06-13] MEDS: clonazePAM 1 MG TAB PO PRN (01:58)
[2020-06-13 04:51] LABS: Bilirubin Direct 0.1 mg/dL (0-0.2); Bilirubin Total 0.4 mg/dL (0.2-1.0); Protein, Total 5.3 g/dL (6.4-8.2)
[2020-06-13] MEDS: LEVOTHYROXINE SOD 0.125 MG TAB PO SCH (05:49)
[2020-06-13] MEDS: INSULIN -REGULAR HUMAN 50 UNIT/0.5 ML ML SQ SCH ×4 (07:30→21:00)
--- NOTE | 2020-06-13 08:01 | RAD REPORT ---
EXAM DESCRIPTION: RAD - Chest Single View - 06/13/2020 6:13 am CLINICAL HISTORY: Pneumonia and CHF COMPARISON: June 12 TECHNIQUE: AP portable chest image was obtained 06/13/2020 6:13 am . FINDINGS: Diffuse airspace opacification in the right lung field and upper left lung field again not ed. Findings in the left upper lung field are slightly more dense. This may be the affects of a more shallow inspiratory effort. No progressive finding of the left base. Cardiac silhouette is enlarged but stable. Trachea is in the midline. Mediastinum is distorted by rot ation. No pneumothorax or enlarging pleural effusion. Delete select IMPRESSION: Extensive bilateral airspace opacification showing no improvement and possible slight wo rsening in the left upper lung field. Stable cardiomegaly and vascular engorgement.
[2020-06-13] MEDS: METFORMIN HCL 850 MG TAB PO SCH ×2 (09:05→17:32)
[2020-06-13] MEDS: LIDOCAINE 4% PATCH TOP SCH (09:05)
[2020-06-13] MEDS: glipiZIDE 5 MG TAB PO SCH ×2 (09:05→17:35)
[2020-06-13] MEDS: DULOXETINE 20 MG CAP PO SCH (09:05)
[2020-06-13] MEDS: Remdesivir 100 MG in NA CHLORIDE 0.9% 250 ML IV SCH (09:05)
[2020-06-13] MEDS: THIAMINE HCL 100 MG TABLET PO SCH (09:05)
[2020-06-13] MEDS: carvediloL 6.25 MG TAB PO SCH ×2 (09:05→21:23)
[2020-06-13] MEDS: METHYLPREDNISOLONE 125 MG INJ IV SCH ×2 (09:06→21:26)
[2020-06-13] MEDS: HYDROCODONE/APAP 5/325 MG TAB PO PRN ×2 (11:15→21:23)
--- NOTE | 2020-06-13 12:02 | P.PN ---
Subjective Date of Service: 06/13/20 Primary Care Provider: Dr. Joe Chief Complaint: Respiratory failure from bullard virus Patient seen on BiPAP. No changes from yesterday. Physical Examination - Vital Signs Temperature: 96.8 F Blood Pressure: 119/59 Pulse: 62 Respirations: 20 Pulse Ox (%): 87 - Physical Exam General: Mild distress Cardiovascular: No edema, Irregular heart rate/rhythm Gastrointestinal: Non-distended Musculoskeletal: No swelling Integumentary: No rashes, No erythema Neurological: Other (Nonfocal) Assessment And Plan - Current Problems (Diagnosis) (1) NSTEMI (non-ST elevated myocardial infarction) Current Visit: Yes Status: Acute (2) Hyperlipidemia Current Visit: Yes Status: Chronic Qualifiers: Hyperlipidemia type: unspecified Qualified Code(s): E78.5 - Hyperlipidemia, unspecified (3) Diabetes mellitus, type II Onset Date: 06/12/18 Current Visit: No Status: Acute Qualifiers: Diabetes mellitus nursing home insulin use: with equipment operator intermodal yard use Diabetes mellitus complication status: without complication Qualified Code(s): E11.9 - Type 2 diabetes mellitus without complications; Z79.4 - halfway (current) use of insulin (4) Nausea & vomiting Onset Date: 06/12/18 Current Visit: No Status: Acute (5) Hypothyroidism Onset Date: 06/12/18 Current Visit: No Status: Chronic Qualifiers: Hypothyroidism type: acquired Qualified Code(s): E03.9 - Hypothyroidism, unspecified (6) UTI (urinary tract infection) Current Visit: Yes Status: Acute (7) Systolic congestive heart failure with reduced left ventricular function, NYHA class 1 Current Visit: Yes Status: Acute (8) LV (left ventricular) mural thrombus Current Visit: Yes Status: Acute (9) Pneumonia due to COVID-19 virus Current Visit: Yes Status: Acute (10) Acute respiratory failure with hypoxia Current Visit: Yes Status: Acute (11) Acute renal failure Current Visit: Yes Status: Acute - Plan Continue IV steroid. Patient should complete Remdesivir today. Titrate oxygen. Continue Coumadin anticoagulation Monitor PT and INR. Patient placed on low-dose Coreg. Lisinopril on hold due to soft blood pressure. Continual Aldactone [place] p.r.n. for pain Insulin sliding scale, Lantus insulin, metformin and oral hypoglycemics for glucose management. PT evaluation once patient has been weaned off high-flow oxygen. Lasix is on hold given rise in serum creatinine. Monitor BMP. Prognosis is guarded. 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 HFrEF, (25-30%) LV mural thrombus -started coumadin 06/02 w/ lovenox bridge at 5mg, 10mg on 06/03-, 5mg 06/05- , held on due to supratherapeutic dose - due to steroid use -hold today, increasing steroid dosage, pred -> solumedrol today -pt started on low-dose coreg, restart low dose lisinopril since BP higher -received 20IV lasix and 20 PO yesterday, will give 20 IV today COVID+ pneumonia -febrile 06/05 evening, CXR with worsening b/l pneumonia -pulmonology consulted -on HFNC now, worsening respiratory function, desaturating quickly per nursing staff -CRP now increasing, will increase Pred 20mg BID to solumedrol 40 q8h UTI, cystitis, resolved -received rocephin for UTI (started 06/02) - e.coli+, completed treatment HLD, DM2, Hypothyroidism -hyperglycemia now that she is on prednisone. basal insulin started on 06/07 Dispo: worsening respiratory status, COVID pneumonia and severely depressed EF, will likely need hospitalization another ~48hrs or so has not gotten up much, will need PT/OT evaluation once breathing more comfortably, lives home alone, may need to consider SNF
[2020-06-13] MEDS: WARFARIN SODIUM 4 MG TAB PO SCH (17:32)
[2020-06-13] MEDS: ATORVASTATIN 40 MG TAB PO SCH (21:23)
[2020-06-13] MEDS: MELATONIN 3 MG TABLET PO SCH (21:23)
[2020-06-13] MEDS: INSULIN GLARGINE 100 UNITS/ML SQ SCH (21:25)
[2020-06-14] MEDS: ACETAMINOPHEN 325 MG TABLET PO PRN (01:31)
[2020-06-14] MEDS: GUAIFENESIN/CODEINE 5ML UCUP PO PRN (01:31)
[2020-06-14] MEDS: HYDROCODONE/APAP 5/325 MG TAB PO PRN ×2 (04:25→18:50)
[2020-06-14] MEDS: LEVOTHYROXINE SOD 0.125 MG TAB PO SCH (06:41)
[2020-06-14] MEDS: carvediloL 6.25 MG TAB PO SCH ×2 (09:00→18:23)
[2020-06-14] MEDS: METHYLPREDNISOLONE 125 MG INJ IV SCH (09:27)
[2020-06-14] MEDS: BENZONATATE 100 MG CAP PO PRN (09:27)
[2020-06-14] MEDS: LIDOCAINE 4% PATCH TOP SCH (09:30)
[2020-06-14] MEDS: glipiZIDE 5 MG TAB PO SCH ×2 (09:30→17:03)
[2020-06-14] MEDS: INSULIN -REGULAR HUMAN 50 UNIT/0.5 ML ML SQ SCH ×4 (09:30→21:25)
[2020-06-14] MEDS: THIAMINE HCL 100 MG TABLET PO SCH (09:40)
[2020-06-14] MEDS: DULOXETINE 20 MG CAP PO SCH (10:07)
[2020-06-14] MEDS: METFORMIN HCL 850 MG TAB PO SCH ×2 (10:07→17:04)
--- NOTE | 2020-06-14 11:21 | P.PN ---
Subjective Date of Service: 06/14/20 Primary Care Provider: Dr. Joe Chief Complaint: Respiratory failure from bullard virus No major changes. Patient uses BiPAP at night. She will occasionally tolerate 4 L of oxygen by nasal cannula. Physical Examination - Vital Signs Temperature: 97.1 F Blood Pressure: 118/48 Pulse: 67 Respirations: 12 Pulse Ox (%): 96 - Physical Exam General: In no apparent distress Neck: JVD not distended Respiratory: Normal air movement Cardiovascular: No edema, Normal S1 S2, Irregular heart rate/rhythm Musculoskeletal: No swelling Integumentary: No rashes, No erythema Neurological: Other (Nonfocal) Assessment And Plan - Current Problems (Diagnosis) (1) NSTEMI (non-ST elevated myocardial infarction) Current Visit: Yes Status: Acute (2) Hyperlipidemia Current Visit: Yes Status: Chronic Qualifiers: Hyperlipidemia type: unspecified Qualified Code(s): E78.5 - Hyperlipidemia, unspecified (3) Diabetes mellitus, type II Onset Date: 06/12/18 Current Visit: No Status: Acute Qualifiers: Diabetes mellitus long lines operator insulin use: with long lines operator use Diabetes mellitus complication status: without complication Qualified Code(s): E11.9 - Type 2 diabetes mellitus without complications; Z79.4 - rat exterminator (current) use of insulin (4) Nausea & vomiting Onset Date: 06/12/18 Current Visit: No Status: Acute (5) Hypothyroidism Onset Date: 06/12/18 Current Visit: No Status: Chronic Qualifiers: Hypothyroidism type: acquired Qualified Code(s): E03.9 - Hypothyroidism, unspecified (6) UTI (urinary tract infection) Current Visit: Yes Status: Acute (7) Systolic congestive heart failure with reduced left ventricular function, NYHA class 1 Current Visit: Yes Status: Acute (8) LV (left ventricular) mural thrombus Current Visit: Yes Status: Acute (9) Pneumonia due to COVID-19 virus Current Visit: Yes Status: Acute (10) Acute respiratory failure with hypoxia Current Visit: Yes Status: Acute (11) Acute renal failure Current Visit: Yes Status: Acute (12) Anemia Current Visit: Yes Status: Acute - Plan Continue IV steroid. Titrate oxygen. BiPAP p.r.n. Continue Coumadin anticoagulation Monitor PT and INR. Patient placed on low-dose Coreg. Lisinopril on hold due to soft blood pressure. Continue Aldactone [place] p.r.n. for pain Insulin sliding scale, Lantus insulin, metformin and oral hypoglycemics for glucose management. PT evaluation once patient has been weaned off high-flow oxygen. Lasix is on hold given rise in serum creatinine. Monitor CBC to follow anemia. 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 HFrEF, (25-30%) LV mural thrombus -started coumadin 06/02 w/ lovenox bridge at 5mg, 10mg on 06/03-, 5mg 06/05- , held on due to supratherapeutic dose - due to steroid use -hold today, increasing steroid dosage, pred -> solumedrol today -pt started on low-dose coreg, restart low dose lisinopril since BP higher -received 20IV lasix and 20 PO yesterday, will give 20 IV today COVID+ pneumonia -febrile 06/05 evening, CXR with worsening b/l pneumonia -pulmonology consulted -on HFNC now, worsening respiratory function, desaturating quickly per nursing staff -CRP now increasing, will increase Pred 20mg BID to solumedrol 40 q8h UTI, cystitis, resolved -received rocephin for UTI (started 06/02) - e.coli+, completed treatment HLD, DM2, Hypothyroidism -hyperglycemia now that she is on prednisone. basal insulin started on 06/07 Dispo: worsening respiratory status, COVID pneumonia and severely depressed EF, will likely need hospitalization another ~48hrs or so has not gotten up much, will need PT/OT evaluation once breathing more comfortably, lives home alone, may need to consider SNF
[2020-06-14] MEDS ORDERED: FUROSEMIDE 40 MG TABLET PO SCH (11:37)
--- NOTE | 2020-06-14 11:38 | P.PN ---
Subjective Date of Service: 06/14/20 Primary Care Provider: Dr. Joe Chief Complaint: Respiratory failure from bullard virus Patient has improved significantly she has rare right now on nasal cannula oxygen sat 94% feels very weak Review of Systems General: Weakness Respiratory: Shortness of Breath Physical Examination - Vital Signs Temperature: 97.1 F Blood Pressure: 118/48 Pulse: 67 Respirations: 12 Pulse Ox (%): 96 - Physical Exam General: Alert Respiratory: Crackles/rales Gastrointestinal: Normal bowel sounds, Soft and benign Assessment & Plan - Problems (Diagnosis) (1) Coronavirus infection Current Visit: Yes Status: Acute Plan: Positive for bullard virus (2) Acute respiratory failure due to severe acute respiratory syndrome coronavirus 2 (SARS-CoV-2) infection Current Visit: Yes Status: Acute Plan: Patient is improving now on nasal cannula oxygen and feels ready weak debilitated patient scheduled to go to an LTAC the do stat dose of her statin medication pattern changer to p.o. prednisone patient is anti coagulated (3) CHF (congestive heart failure) Current Visit: Yes Status: Acute Plan: Congestive heart failure at spironolactone Qualifiers: Heart failure chronicity: acute Physician Review: Patient Assessed, Agree with Above Assessment and Plan
[2020-06-14] MEDS: SPIRONOLACTONE 25 MG TABLET PO SCH (13:44)
[2020-06-14] MEDS: WARFARIN SODIUM 4 MG TAB PO SCH (17:04)
[2020-06-14] MEDS: predniSONE 20 MG TAB PO SCH (21:16)
[2020-06-14] MEDS: ATORVASTATIN 20 MG TAB PO SCH (21:17)
[2020-06-14] MEDS: MELATONIN 3 MG TABLET PO SCH (21:18)
[2020-06-14] MEDS: INSULIN GLARGINE 100 UNITS/ML SQ SCH (21:24)
[2020-06-15] MEDS: HYDROCODONE/APAP 5/325 MG TAB PO PRN ×5 (00:03→19:23)
[2020-06-15] MEDS: BENZONATATE 100 MG CAP PO PRN (03:24)
[2020-06-15] MEDS: LEVOTHYROXINE SOD 0.125 MG TAB PO SCH (05:55)
[2020-06-15 06:30] LABS: Absolute Lymphocytes (CBC) 0.6 K/uL (0.7-4.9); Basophils % 0.5 % (0-1.3); Hematocrit 25.3 % (36.0-45.0); Lymphocytes % 3.1 % (15.3-44.8); MPV 10.5 fL (7.6-11.3); RBC Red Blood Cell Count 3.09 M/uL (3.86-4.86)
[2020-06-15 06:54] LABS: C-Reactive Protein 18.2 mg/L (<3.00); Ferritin 240.3 ng/mL (8-388); Potassium 5.2 mmol/L (3.5-5.1)
[2020-06-15] MEDS ORDERED: D50W 50 ML IV ONE (07:13)
[2020-06-15] MEDS: INSULIN -REGULAR HUMAN 50 UNIT/0.5 ML ML SQ SCH ×4 (07:16→21:17)
[2020-06-15] MEDS: glipiZIDE 5 MG TAB PO SCH (07:30)
[2020-06-15] MEDS: LIDOCAINE 4% PATCH TOP SCH (08:37)
[2020-06-15] MEDS: SPIRONOLACTONE 25 MG TABLET PO SCH (08:38)
[2020-06-15] MEDS: predniSONE 20 MG TAB PO SCH ×2 (08:38→21:16)
[2020-06-15] MEDS: THIAMINE HCL 100 MG TABLET PO SCH (08:38)
[2020-06-15] MEDS: carvediloL 6.25 MG TAB PO SCH ×2 (08:39→21:16)
[2020-06-15] MEDS: FUROSEMIDE 20 MG TABLET PO SCH (08:39)
[2020-06-15] MEDS: DULOXETINE 20 MG CAP PO SCH (08:39)
[2020-06-15] MEDS: ONDANSETRON 4 MG/2 ML VIAL IV PRN (09:34)
--- NOTE | 2020-06-15 12:37 | P.PN ---
Subjective Date of Service: 06/15/20 Primary Care Provider: Dr. Joe Chief Complaint: Respiratory failure from bullard virus Patient respiratory condition appeared to be stabilizing. She is not tolerating oxygen by nasal cannula. Patient noted to be hypoglycemic this morning. Physical Examination - Vital Signs Temperature: 97.4 F Blood Pressure: 114/53 Pulse: 87 Respirations: 17 Pulse Ox (%): 98 - Physical Exam General: Alert, In no apparent distress Neck: Supple Respiratory: Normal air movement Cardiovascular: No edema Gastrointestinal: Non-distended Musculoskeletal: No swelling Integumentary: No rashes Neurological: Other (Nonfocal) Assessment And Plan - Current Problems (Diagnosis) (1) NSTEMI (non-ST elevated myocardial infarction) Current Visit: Yes Status: Acute (2) Hyperlipidemia Current Visit: Yes Status: Chronic Qualifiers: Hyperlipidemia type: unspecified Qualified Code(s): E78.5 - Hyperlipidemia, unspecified (3) Diabetes mellitus, type II Onset Date: 06/12/18 Current Visit: No Status: Acute Qualifiers: Diabetes mellitus skilled nursing insulin use: with early childhood director use Diabetes mellitus complication status: without complication Qualified Code(s): E11.9 - Type 2 diabetes mellitus without complications; Z79.4 - care home (current) use of insulin (4) Nausea & vomiting Onset Date: 06/12/18 Current Visit: No Status: Acute (5) Hypothyroidism Onset Date: 06/12/18 Current Visit: No Status: Chronic Qualifiers: Hypothyroidism type: acquired Qualified Code(s): E03.9 - Hypothyroidism, unspecified (6) UTI (urinary tract infection) Current Visit: Yes Status: Acute (7) Systolic congestive heart failure with reduced left ventricular function, NYHA class 1 Current Visit: Yes Status: Acute (8) LV (left ventricular) mural thrombus Current Visit: Yes Status: Acute (9) Pneumonia due to COVID-19 virus Current Visit: Yes Status: Acute (10) Acute respiratory failure with hypoxia Current Visit: Yes Status: Acute (11) Acute renal failure Current Visit: Yes Status: Acute (12) Anemia Current Visit: Yes Status: Acute (13) Hypoglycemia Onset Date: 06/15/18 Current Visit: No Status: Resolved - Plan Continue IV steroid. Oxygen by nasal cannula Continue Coumadin anticoagulation Monitor PT and INR. Patient placed on low-dose Coreg. Continue Aldactone [place] p.r.n. for pain Hold Lantus insulin, metformin and glipizide given hypoglycemia. Continue insulin sliding scale. PT evaluation. Resume Lasix.
[2020-06-15] MEDS: WARFARIN SODIUM 4 MG TAB PO SCH (17:49)
[2020-06-15] MEDS: MELATONIN 3 MG TABLET PO SCH (21:16)
[2020-06-15] MEDS: ATORVASTATIN 20 MG TAB PO SCH (21:16)
[2020-06-15] MEDS: GABAPENTIN 300 MG CAP PO PRN (22:14)
[2020-06-16] MEDS: HYDROCODONE/APAP 5/325 MG TAB PO PRN ×5 (04:06→20:46)
[2020-06-16] MEDS: LEVOTHYROXINE SOD 0.125 MG TAB PO SCH (05:29)
[2020-06-16 05:56] LABS: Absolute Lymphocytes (CBC) 0.5 K/uL (0.7-4.9); Basophils % 0.1 % (0-1.3); Hematocrit 25.8 % (36.0-45.0); Lymphocytes % 3.1 % (15.3-44.8); MPV 10.3 fL (7.6-11.3); RBC Red Blood Cell Count 3.14 M/uL (3.86-4.86)
[2020-06-16 06:01] LABS: C-Reactive Protein 11.7 mg/L (<3.00); Ferritin 306.4 ng/mL (8-388); Potassium 5.1 mmol/L (3.5-5.1)
[2020-06-16] MEDS: INSULIN -REGULAR HUMAN 50 UNIT/0.5 ML ML SQ SCH ×4 (07:30→20:57)
[2020-06-16 08:07] LABS: Platelet Estimate ADEQ; White Blood Cell Scan OK (OK)
[2020-06-16 08:08] LABS: Blood Morphology Comment NOT SEEN (NOT SEEN)
[2020-06-16] MEDS: GUAIFENESIN/CODEINE 5ML UCUP PO PRN (08:30)
[2020-06-16] MEDS: SPIRONOLACTONE 25 MG TABLET PO SCH (08:31)
[2020-06-16] MEDS: DULOXETINE 20 MG CAP PO SCH (08:31)
[2020-06-16] MEDS: FUROSEMIDE 20 MG TABLET PO SCH (08:31)
[2020-06-16] MEDS: carvediloL 6.25 MG TAB PO SCH ×2 (08:31→20:46)
[2020-06-16] MEDS: THIAMINE HCL 100 MG TABLET PO SCH (08:31)
[2020-06-16] MEDS: ONDANSETRON 4 MG/2 ML VIAL IV PRN (08:32)
[2020-06-16] MEDS: predniSONE 20 MG TAB PO SCH ×2 (08:32→20:46)
[2020-06-16] MEDS: LIDOCAINE 4% PATCH TOP SCH (08:32)
--- NOTE | 2020-06-16 11:58 | P.PN ---
Subjective Date of Service: 06/16/20 Primary Care Provider: Dr. Joe Chief Complaint: Respiratory failure from bullard virus Patient is doing better today. She has been tolerating 3 L of oxygen by nasal Physical Examination - Vital Signs Temperature: 96.3 F Blood Pressure: 117/74 Pulse: 83 Respirations: 14 Pulse Ox (%): 95 - Physical Exam General: Alert, In no apparent distress Neck: JVD not distended Respiratory: Normal air movement Cardiovascular: No edema, Normal S1 S2, Irregular heart rate/rhythm Gastrointestinal: Non-distended Musculoskeletal: No swelling Integumentary: No rashes, No erythema Neurological: Other (Nonfocal) Assessment And Plan - Current Problems (Diagnosis) (1) NSTEMI (non-ST elevated myocardial infarction) Current Visit: Yes Status: Acute (2) Hyperlipidemia Current Visit: Yes Status: Chronic Qualifiers: Hyperlipidemia type: unspecified Qualified Code(s): E78.5 - Hyperlipidemia, unspecified (3) Diabetes mellitus, type II Onset Date: 06/12/18 Current Visit: No Status: Acute Qualifiers: Diabetes mellitus rn long term care insulin use: with shelter use Diabetes mellitus complication status: without complication Qualified Code(s): E11.9 - Type 2 diabetes mellitus without complications; Z79.4 - terminal gauger (current) use of insulin (4) Nausea & vomiting Onset Date: 06/12/18 Current Visit: No Status: Acute (5) Hypothyroidism Onset Date: 06/12/18 Current Visit: No Status: Chronic Qualifiers: Hypothyroidism type: acquired Qualified Code(s): E03.9 - Hypothyroidism, unspecified (6) UTI (urinary tract infection) Current Visit: Yes Status: Acute (7) Systolic congestive heart failure with reduced left ventricular function, NYHA class 1 Current Visit: Yes Status: Acute (8) LV (left ventricular) mural thrombus Current Visit: Yes Status: Acute (9) Pneumonia due to COVID-19 virus Current Visit: Yes Status: Acute (10) Acute respiratory failure with hypoxia Current Visit: Yes Status: Acute (11) Acute renal failure Current Visit: Yes Status: Acute (12) Anemia Current Visit: Yes Status: Acute (13) Hypoglycemia Onset Date: 06/15/18 Current Visit: No Status: Resolved - Plan Patient respiratory condition appeared to have stabilized. IV steroid scaled down to oral prednisone She is tolerating oxygen by nasal cannula Continue Coumadin anticoagulation Monitor PT and INR. Patient placed on low-dose Coreg. Continue Aldactone and Lasix. [place] p.r.n. for pain Continue insulin sliding scale. Lantus insulin is on hold due to hypoglycemia PT evaluation function I will status. Consider am disposition to SNF for rehab.
[2020-06-16] MEDS: WARFARIN SODIUM 4 MG TAB PO SCH (16:17)
[2020-06-16] MEDS: GABAPENTIN 300 MG CAP PO PRN (20:45)
[2020-06-16] MEDS: ATORVASTATIN 20 MG TAB PO SCH (20:46)
[2020-06-16] MEDS: MELATONIN 3 MG TABLET PO SCH (20:46)
[2020-06-17] MEDS: LEVOTHYROXINE SOD 0.125 MG TAB PO SCH (06:00)
[2020-06-17 06:14] LABS: C-Reactive Protein 8.47 mg/L (<3.00); Ferritin 309.1 ng/mL (8-388)
[2020-06-17] MEDS: INSULIN -REGULAR HUMAN 50 UNIT/0.5 ML ML SQ SCH ×4 (07:30→21:02)
[2020-06-17 07:59] LABS: Protime INR 7.77
--- NOTE | 2020-06-17 09:50 | P.PN ---
Subjective Date of Service: 06/17/20 Primary Care Provider: Dr. Joe Chief Complaint: Respiratory failure from bullard virus Subjective: No new changes (feeling ok, breathing ok on 2L NC, reports mostly dealing with her chronic back pain) Review of Systems 10-point ROS is otherwise unremarkable Physical Examination - Vital Signs Temperature: 97.5 F Blood Pressure: 113/60 Pulse: 72 Respirations: 11 Pulse Ox (%): 97 - Physical Exam General: Alert, In no apparent distress (but does appear uncomfortable) HEENT: Sclerae nonicteric Respiratory: Other (non-labored on 2LNC) Cardiovascular: No edema, Irregular heart rate/rhythm (irregularly irregular, HR: 70s) Gastrointestinal: Soft and benign, No tenderness Neurological: Normal speech Urinary: Perez catheter Assessment & Plan Physician Review Additional Text: nonischemic cardiomyopathy, 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 HFrEF, (25-30%) LV mural thrombus COVID+ pneumonia UTI, cystitis HLD DM2, non-insulin dependent Hypothyroidism nonischemic cardiomyopathy, 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 HFrEF, (25-30%) LV mural thrombus -started coumadin 06/02 -INR rechecked this AM- supratherapeutic; no signs/symptoms of bleeding at this time, will hold coumadin dose -supratherapeutic likely due to steroid usage -contine home coreg dose, lisinopril dc'd due to soft BPs -continue spironolactone and lasis - on 20mg PO lasix daily over the past 2-3 days COVID+ pneumonia -febrile 06/05 evening, CXR with worsening b/l pneumonia -pulmonology consulted -weaned down to 2LNC, much improved; on PO prednisone now -working on getting patient to SNF - she would benefit greatly from rehab UTI, cystitis, resolved -received rocephin for UTI (started 06/02) - e.coli+, completed treatment HLD, DM2, Hypothyroidism -controlled with diet and sliding scale insulin, continue home synthroid patient with perez catheter, unclear when it was placed, nursing reports they believe it was placed due to retention will review EMR for reason for perez and if pt has enough strength to use bed dolan / bedside commode, will dc perez Dispo: SW/CM consulted for SNF, anticipate dc in 24-48 hrs recheck INR in am to ensure not continuing to rise Time Spent Managing Pts Care (In Minutes): 45
[2020-06-17] MEDS: predniSONE 20 MG TAB PO SCH ×2 (10:18→21:02)
[2020-06-17] MEDS: carvediloL 6.25 MG TAB PO SCH ×2 (10:18→21:03)
[2020-06-17] MEDS: THIAMINE HCL 100 MG TABLET PO SCH (10:18)
[2020-06-17] MEDS: HYDROCODONE/APAP 5/325 MG TAB PO PRN ×3 (10:21→21:04)
[2020-06-17] MEDS: FUROSEMIDE 20 MG TABLET PO SCH (10:21)
[2020-06-17] MEDS: LIDOCAINE 4% PATCH TOP SCH (10:22)
[2020-06-17] MEDS: SPIRONOLACTONE 25 MG TABLET PO SCH (10:41)
[2020-06-17] MEDS: DULOXETINE 20 MG CAP PO SCH (10:42)
[2020-06-17] MEDS: ATORVASTATIN 20 MG TAB PO SCH (21:02)
[2020-06-17] MEDS: MELATONIN 3 MG TABLET PO SCH (21:02)
[2020-06-17] MEDS: GABAPENTIN 300 MG CAP PO PRN (21:02)
[2020-06-18 05:18] LABS: Absolute Lymphocytes (CBC) 0.4 K/uL (0.7-4.9); Basophils % 0.2 % (0-1.3); Hematocrit 22.3 % (36.0-45.0); Lymphocytes % 3.1 % (15.3-44.8); MPV 10.1 fL (7.6-11.3); RBC Red Blood Cell Count 2.76 M/uL (3.86-4.86)
[2020-06-18 06:03] LABS: C-Reactive Protein 7.59 mg/L (<3.00); Magnesium 1.7 mg/dL (1.8-2.4)
[2020-06-18 06:13] LABS: Protime INR 6.54
[2020-06-18] MEDS: LEVOTHYROXINE SOD 0.125 MG TAB PO SCH (06:45)
[2020-06-18] MEDS ORDERED: NA CHLORIDE 0.9% 250 ML IV SCH (07:00)
[2020-06-18] MEDS: FUROSEMIDE 20 MG TABLET PO SCH (09:26)
[2020-06-18] MEDS: carvediloL 6.25 MG TAB PO SCH ×2 (09:27→21:09)
[2020-06-18] MEDS: predniSONE 20 MG TAB PO SCH ×2 (09:27→21:09)
[2020-06-18] MEDS: THIAMINE HCL 100 MG TABLET PO SCH (09:27)
[2020-06-18] MEDS: INSULIN -REGULAR HUMAN 50 UNIT/0.5 ML ML SQ SCH ×4 (09:28→21:10)
[2020-06-18] MEDS: SPIRONOLACTONE 25 MG TABLET PO SCH (09:28)
[2020-06-18] MEDS: LIDOCAINE 4% PATCH TOP SCH (09:28)
[2020-06-18] MEDS: DULOXETINE 20 MG CAP PO SCH (09:29)
[2020-06-18] MEDS ORDERED: FUROSEMIDE 20 MG/ 2ML VIAL IV ONE (10:00)
[2020-06-18] MEDS ORDERED: NA CHLORIDE 0.9% 50 ML ONE (13:15)
[2020-06-18] MEDS: HYDROCODONE/APAP 5/325 MG TAB PO PRN ×2 (13:43→17:31)
--- NOTE | 2020-06-18 14:32 | P.PN ---
Subjective Date of Service: 06/18/20 Primary Care Provider: Dr. Joe Chief Complaint: Respiratory failure from bullard virus Subjective: No new changes (reports breathing ok, feels very weak and fatigued. 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 HFrEF, (25-30%) LV mural thrombus COVID+ pneumonia UTI, cystitis HLD DM2, non-insulin dependent Hypothyroidism nonischemic cardiomyopathy, 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 HFrEF, (25-30%) LV mural thrombus -started coumadin 06/02 -INR rechecked on 06/17- supratherapeutic; no signs/symptoms of bleeding at this time, will hold coumadin dose again tonight -INR down to 6.5; supratherapeutic likely due to steroid usage, improving -Hgb down in 7s, will transfuse 1 u PRBC since pt has low EF and requiring oxygen, no evidence of bleeding, will check iron studies; check post transfusion H&H -contine home coreg dose, lisinopril dc'd due to soft BPs -continue spironolactone and lasix - on 20mg PO lasix daily over the past 2-3 days COVID+ pneumonia -pulmonology consulted -weaned down to 2LNC, much improved; on PO prednisone now -working on getting patient to SNF - she would benefit greatly from rehab UTI, cystitis, resolved -received rocephin for UTI (started 06/02) - e.coli+, completed treatment HLD, DM2, Hypothyroidism -continue home synthroid -has had labile glucose, now hyper glycemic, will start 5u Lantus tonight dc perez today Dispo: SW/CM consulted for SNF, anticipate dc in 24-48 hrs - pending stable hgb Time Spent Managing Pts Care (In Minutes): 40
[2020-06-18] MEDS ORDERED: INSULIN GLARGINE 100 UNITS/ML SQ SCH (17:00)
[2020-06-18 19:07] LABS: Hematocrit 28.5 % (36.0-45.0)
[2020-06-18] MEDS: ATORVASTATIN 20 MG TAB PO SCH (21:09)
[2020-06-18] MEDS: MELATONIN 3 MG TABLET PO SCH (21:10)
[2020-06-18] MEDS: ENSURE HIGH PROTEIN 237 ML CAN PO SCH (21:11)
[2020-06-19] MEDS: HYDROCODONE/APAP 5/325 MG TAB PO PRN ×3 (00:39→13:28)
[2020-06-19 04:02] VITALS: O2SAT 96
[2020-06-19] MEDS: LEVOTHYROXINE SOD 0.125 MG TAB PO SCH (05:15)
[2020-06-19 06:39] VITALS: BMI 28.3
[2020-06-19 07:08] LABS: Lymphocytes % 3.9 % (15.3-44.8); MPV 10.1 fL (7.6-11.3); RBC Red Blood Cell Count 3.61 M/uL (3.86-4.86)
[2020-06-19 07:09] LABS: Absolute Lymphocytes (CBC) 0.7 K/uL (0.7-4.9); Basophils % 0.9 % (0-1.3)
[2020-06-19 07:23] LABS: C-Reactive Protein 6.32 mg/L (<3.00); Ferritin 371.6 ng/mL (8-388); Magnesium 1.7 mg/dL (1.8-2.4); Potassium 4.9 mmol/L (3.5-5.1)
[2020-06-19] MEDS: FUROSEMIDE 20 MG TABLET PO SCH (08:37)
[2020-06-19] MEDS: THIAMINE HCL 100 MG TABLET PO SCH (08:37)
[2020-06-19] MEDS: carvediloL 6.25 MG TAB PO SCH (08:38)
[2020-06-19] MEDS: SPIRONOLACTONE 25 MG TABLET PO SCH (08:38)
[2020-06-19] MEDS: predniSONE 20 MG TAB PO SCH (08:38)
[2020-06-19] MEDS: INSULIN -REGULAR HUMAN 50 UNIT/0.5 ML ML SQ SCH ×2 (08:38→11:42)
[2020-06-19] MEDS: LIDOCAINE 4% PATCH TOP SCH (08:38)
[2020-06-19] MEDS: DULOXETINE 20 MG CAP PO SCH (08:39)
[2020-06-19] MEDS: ENSURE HIGH PROTEIN 237 ML CAN PO SCH (08:39)
[2020-06-19] MEDS ORDERED: MAGNESIUM SULFATE 1 gm IVPB 1 GM/100 ML BAG IV ONE (09:00)
[2020-06-19 09:45] LABS: Protime INR 2.63
[2020-06-19] MEDS ORDERED: levoFLOXacin 500 MG TAB PO SCH (10:00)
[2020-06-19 10:06] LABS: Platelet Estimate ADEQ; White Blood Cell Scan OK (OK)
[2020-06-19 10:07] LABS: Blood Morphology Comment NOT SEEN (NOT SEEN)
--- NOTE | 2020-06-19 12:00 | P.DS ---
Admission Date: 05/31/20 Discharge Date: 06/19/20 Primary Care Provider: Dr. Joe Disposition: TRANSFER TO SNF - MEDICAL Discharge Condition: FAIR Reason for Admission: Chest Pain Procedures: CTA Chest (05/31): 1. No PE identified. 2. Borderline enlarged main pulmonary arteries. 3. No pulmonary consolidation or groundglass opacities. CXR (06/08): Extensive bilateral airspace opacification has developed. This is most likely an atypical presentation of CHF. 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 In the ED, her chest x-ray was unremarkable. Initial troponin was elevated to 5.12. The patient was admitted further management of NSTEMI. 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 Found to have elevated troponin of 5.0 and trended up to 7.3. Cardiology was consulted, patient underwent cardiac catheterization which revealed severe LVH, severe [place] to distal LV hypokinesis suggesting Takotsubo cardiomyopathy -Cardiology recommended lasix, low-dose lisinopril, Coreg, and aspirin, however during her hospitalization her BP remained too low to continue lisinopril. -pt was initially going to be discharged home, however echocardiogram revealed a LV thrombus. Cardiology recommended bridging patient to Coumadin prior to discharge COVID-19 pneumonia, acute hypoxemic respiratory failure -patient was successfully bridged to coumadin, however the night before she was to be discharged home, she became febrile, hypoxic, and rapid COVID testing revealed she was now positive (negative in ED on admission) -She had a prolonged treatment course and much difficulty weaning her oxygen, likely due to her new low EF of 20-25%. -Pulmonology was consulted and assisted in her management -patient eventually had improvement and was weaned down to 2L NC. -she was discharged to SNF for rehab and continued monitoring -while awaiting for SNF approval, patient's INR was noted to be up to 7.7 - lik [place] due to steroid use. She did not have any evidence of bleeding and Coumadin was held for two nights with significant improvement of INR. Anemia On admission, pt's Hgb: 10.8 but throughout hospitalization remained ~8.0-9.3. She was noted to have a Hgb: 7.1 on 06/18 and received 1uPRBC due to her reduced EF, hypoxia, and COVID-19 pneumonia, and had improvement to 9.3 and stable the following day at 9.6 on day of discharge iron studies were obtained and seemed to have a mix of iron deficiency / chronic disease (Fe: 34, TIBC: 295, transferrin: 211, Transferrin %Sat: 11.5). She may benefit from iron supplementation UTI -shortly after admission she was noted to have UTI and completed treatment with IV rocephin Vital Signs/Physical Exam: Temp Pulse Resp BP Pulse Ox 97.1 F 65 18 124/58 L 95 06/19/20 04:00 06/19/20 04:00 06/19/20 05:15 06/19/20 08:38 06/19/20 05:15 General: Alert, In no apparent distress, Oriented x3 HEENT: Sclerae nonicteric Respiratory: Other (non-labored on 2LNC) Cardiovascular: No edema, Regular rate/rhythm Gastrointestinal: Soft and benign, No tenderness Musculoskeletal: No tenderness Integumentary: No rashes, No significant lesion Neurological: Normal speech, Normal affect Laboratory Data at Discharge: WBC 18.0 K/uL (4.3-10.9) H D 06/19/20 06:40 Hgb 9.6 g/dL (12.0-15.0) L 06/19/20 06:40 Hct 30.0 % (36.0-45.0) L 06/19/20 06:40 Plt Count 272 K/uL (152-406) 06/19/20 06:40 PT 30.4 SECONDS (9.5-12.5) H 06/19/20 07:28 INR 2.63 06/19/20 07:28 Sodium 136 mmol/L (136-145) 06/19/20 06:40 Potassium 4.9 mmol/L (3.5-5.1) 06/19/20 06:40 BUN 52 mg/dL (7-18) H 06/19/20 06:40 Creatinine 1.09 mg/dL (0.55-1.3) 06/19/20 06:40 Glucose 245 mg/dL (74-106) H 06/19/20 06:40 Magnesium 1.7 mg/dL (1.8-2.4) L 06/19/20 06:40 Total Bilirubin 0.4 mg/dL (0.2-1.0) 06/13/20 04:05 AST 26 U/L (15-37) 06/13/20 04:05 ALT 22 U/L (12-78) 06/13/20 04:05 Alkaline Phosphatase 47 U/L (45-117) 06/13/20 04:05 Troponin I 6.86 ng/mL (0.0-0.045) H* 06/01/20 17:22 Triglycerides 75 mg/dL (<150) 05/31/20 07:49 Cholesterol 179 mg/dL (<200) 05/31/20 07:49 HDL Cholesterol 73 mg/dL (40-60) H 05/31/20 07:49 Cholesterol/HDL Ratio 2.45 05/31/20 07:49 Lipase 206 U/L (73-393) 05/31/20 03:15 Home Medications: Alendronate Sodium [Fosamax] 1 tab PO SEECOM 05/31/20 Diphenox/Atropine [Lomotil*] 1 tab PO QID PRN 05/31/20 Duloxetine [Cymbalta *] 1 cap PO DAILY 05/31/20 Levothyroxine [Synthroid*] 1 tab PO [id number] 05/31/20 Lovastatin [Altoprev] 1 tab PO DAILY 05/31/20 Metformin HCl [Glucophage*] 1 tab PO BIDWM 05/31/20 Tramadol HCl [Ultram] 1 tab PO Q6H PRN 05/31/20 carvediloL [Carvedilol] 1 tab PO BID* 05/31/20 glipiZIDE [Glucotrol*] 1 tab PO BID 05/31/20 Ensure High Protein 237 ml PO BID 30 Days #60 can 12/10/20 Famotidine [Pepcid] 20 mg PO DAILY 30 Days #30 tablet 06/19/20 Furosemide [Lasix*] 20 mg PO DAILY 30 Days #30 tab 06/19/20 Melatonin [Melatonin*] 3 mg PO BEDTIME 30 Days #30 tablet 06/19/20 Spironolactone [Aldactone*] 25 mg PO DAILY 30 Days #30 tab 06/19/20 Warfarin Sodium [Coumadin] 2 mg PO DAILY 5 PM 30 Days #30 tab 06/19/20 levoFLOXacin [Levaquin*] 500 mg PO DAILY 7 Days #7 tab 06/19/20 predniSONE [Deltasone*] 10 mg PO BID 7 Days #14 tab 06/19/20 New Medications: Spironolactone [Aldactone*] 25 mg PO DAILY 30 Days #30 tab Warfarin Sodium [Coumadin] 2 mg PO DAILY 5 PM 30 Days #30 tab predniSONE [Deltasone*] 10 mg PO BID 7 Days #14 tab Ensure High Protein 237 ml PO BID 30 Days #60 can Furosemide [Lasix*] 20 mg PO DAILY 30 Days #30 tab levoFLOXacin [Levaquin*] 500 mg PO DAILY 7 Days #7 tab Melatonin [Melatonin*] 3 mg PO BEDTIME 30 Days #30 tablet Famotidine [Pepcid] 20 mg PO DAILY 30 Days #30 tablet Patient Discharge Instructions: discharged to SNF. You will need to follow up with PCP, Cardiology, and Pulmonology 1-2 weeks after discharge from SNF. Several medications were changed during your hospitalization. your INR level will need to be checked frequently over the next 1-2 weeks while you're on steroids and antibiotics. Goal INR: 2-3 Diet: ADA Activity: Fall precautions Followup: Unknown,U [Primary Care Provider] - Time spent managing pt's care (in minutes): 45
[2020-06-19 14:36] VITALS: BP 122/71; TEMP 97.4
== END 2020-06-19 14:15 | DRG 280 ==
LOC: ER 03:08 → ERHOLD 06:31 → 4TH 08:09 → 2ND 06-02 10:11 → 3RD-ICU 06-06 01:52
PROVIDERS: ADMIT Internal Medicine; ATTEND Hospitalist
PROC: 4A023N7 Measurement of Cardiac Sampling and Pressure, Left Heart, Percutaneous Approach (ICD-10-PCS; principal; 2020-06-02)
PROC: B2111ZZ Fluoroscopy of Multiple Coronary Arteries using Low Osmolar Contrast (ICD-10-PCS; 2020-06-02)
PROC: 5A09557 Assistance with Respiratory Ventilation, Greater than 96 Consecutive Hours, Continuous Positive Airway Pressure (ICD-10-PCS; 2020-06-09)
PROC: XW033E5 Introduction of Remdesivir Anti-infective into Peripheral Vein, Percutaneous Approach, New Technology Group 5 (ICD-10-PCS; 2020-06-10)
PROC: 30233N1 Transfusion of Nonautologous Red Blood Cells into Peripheral Vein, Percutaneous Approach (ICD-10-PCS; 2020-06-18)
DX: I21.4 Non-ST elevation (NSTEMI) myocardial infarction (principal); I50.21 Acute systolic (congestive) heart failure; U07.1 COVID-19; J12.89 Other viral pneumonia; J80 Acute respiratory distress syndrome; I42.8 Other cardiomyopathies; I51.81 Takotsubo syndrome; N39.0 Urinary tract infection, site not specified; I23.6 Thrombosis of atrium, auricular appendage, and ventricle as current complications following acute myocardial infarction; N17.9 Acute kidney failure, unspecified; I25.9 Chronic ischemic heart disease, unspecified; I11.0 Hypertensive heart disease with heart failure; E11.65 Type 2 diabetes mellitus with hyperglycemia; E11.40 Type 2 diabetes mellitus with diabetic neuropathy, unspecified; G89.29 Other chronic pain; M54.9 Dorsalgia, unspecified; E83.42 Hypomagnesemia; E86.0 Dehydration; E78.5 Hyperlipidemia, unspecified; M10.9 Gout, unspecified; K21.9 Gastro-esophageal reflux disease without esophagitis; E11.649 Type 2 diabetes mellitus with hypoglycemia without coma; D50.9 Iron deficiency anemia, unspecified; E03.9 Hypothyroidism, unspecified; B96.20 Unspecified Escherichia coli [E. coli] as the cause of diseases classified elsewhere; T38.0X5A Adverse effect of glucocorticoids and synthetic analogues, initial encounter; Z79.890 Hormone replacement therapy; Z79.899 Other long term (current) drug therapy; Z90.710 Acquired absence of both cervix and uterus; Z79.4 Long term (current) use of insulin; Z60.2 Problems related to living alone; Z90.49 Acquired absence of other specified parts of digestive tract; Z79.52 Long term (current) use of systemic steroids
CPT/HCPCS: 36415; 71045; 71275; 80048; 80061; 80076; 81001; 82010; 82728; 82947; 83036; 83540; 83690; 83735; 83880; 84466; 84484; 85014; 85018; 85025; 85610; 85652; 86140; 86850; 86900; 86901; 87040; 87077; 87086; 87088; 87186; 87804; 93005; 93306; 93458; 94002; 94003; 94640; 94660; 94760; 96361; 96365; 96375; 97110; 97112; 97116; 97161; 97164; 97530; 99285; C1760; C1893; C9113; J0696; J1644; J1815; J1940; J2250; J2270; J2405; J2550; J2920; J2930; J3010; J3475; J7030; J7040; J7050; J7512; J7605; P9016; Q9967; U0003

== ENCOUNTER 2020-07-24 14:45 | Inpatient (IN) | payer OTHER ==
--- OUTSIDE RECORDS SUMMARY | 2020-07-24 14:49 | XMS REPORT | Continuity of Care Document ---
:1950 Author Organization [facility] t Address [address] [place] [address] Care Team Providers Name Role Phone Unavailable Unavailable Unavailable Payers Payer Name Policy Type Policy Number Effective Date Expiration Date S ource Problems This patient has no known problems. Allergies, Adverse Reactions, Alerts Allergy Allergy Status Severity Reaction(s) Onset Inactive Treating Comm ents Source Name Type Date Date Clinician No Known DA Active U 2019-07 [facility] Allergie - Clear s 00:00: Dai [address] [place] [address] Medications This patient has no known medications. Procedures This patient has no known procedures. Results Test Description Test Time Test Comments Results Result Comments Source GLUCOSE BEDSIDE TESTING 2020-06-30 11:56:00 Test Item Value Reference Range Interpretation Comme nts GLUCOSE BEDSIDE TESTING (test code = GLUBED) 187 mg/dL 70-110 H GLUCOSE BEDSIDE [id number] 08:24:00 Test Item Value Reference Range Interpretation Comments GLUCOSE BEDSIDE TESTING (test code 167 mg/dL 70-110 H = GLUBED) GLUCOSE BEDSIDE [id number] 20:51:00 Test Item Value Reference Range Interpretation Comments GLUCOSE BEDSIDE TESTING (test code 219 mg/dL 70-110 H = GLUBED) GLUCOSE BEDSIDE [id number] 17:31:00 Test Item Value Reference Range Interpretation Comments GLUCOSE BEDSIDE TESTING (test code = 96 mg/dL 70-110 N GLUBED) GLUCOSE BEDSIDE [id number] 12:08:00 Test Item Value Reference Range Interpretation Comments GLUCOSE BEDSIDE TESTING (test code 215 mg/dL 70-110 H = GLUBED) GLUCOSE BEDSIDE [id number] 08:14:00 Test Item Value Reference Range Interpretation Comments GLUCOSE BEDSIDE TESTING (test code 204 mg/dL 70-110 H = GLUBED) GLUCOSE BEDSIDE [id number] 20:32:00 Test Item Value Reference Range Interpretation Comments GLUCOSE BEDSIDE TESTING (test code 242 mg/dL 70-110 H = GLUBED) GLUCOSE BEDSIDE [id number] 17:18:00 Test Item Value Reference Range Interpretation Comments GLUCOSE BEDSIDE TESTING (test code 236 mg/dL 70-110 H = GLUBED) GLUCOSE BEDSIDE [id number] 12:33:00 Test Item Value Reference Range Interpretation Comments GLUCOSE BEDSIDE TESTING (test code 224 mg/dL 70-110 H = GLUBED) GLUCOSE BEDSIDE [id number] 08:31:00 Test Item Value Reference Range Interpretation Comments GLUCOSE BEDSIDE TESTING (test code 164 mg/dL 70-110 H = GLUBED) CBC W/AUTO [id number] 06:15:00 Test Item Value Reference Range Interpretation Comments WHITE BLOOD CELL (test code = 8.3 K/mm3 3.5-11.0 N WBC) RED BLOOD CELL (test code = 2.89 M/mm3 4.70-6.10 L RBC) HEMOGLOBIN (test code = HGB) 8.1 G/DL 10.4-14.9 L HEMATOCRIT (test code = HCT) 26.4 % 31.5-44.1 L MEAN CELL VOLUME (test code = 91.3 Fl 84.5-98.6 N MCV) MEAN CELL HGB (test code = MCH) 28.0 pg 27.0-34.2 N MEAN CELL HGB CONCETRATION 30.7 G/DL 31.5-34.0 L (test code = MCHC) RED CELL DISTRIBUTION WIDTH 18.4 SD 11.5-14.5 H (test code = RDW) PLATELET COUNT (test code = 341 K/mm3 150-450 N PLT) MEAN PLATELET VOLUME (test code 10.50 fL 7.0-10.5 N = MPV) NEUTROPHIL % (test code = NT%) 64.3 % 40-76 IMMATURE GRANULOCYTE % (test 0.7 % 0.0-5.0 N code = IG%) LYMPHOCYTE % (test code = LY%) 23.0 % 20.5-51.1 N MONOCYTE % (test code = MO%) 11.2 % 1.7-9.3 H EOSINOPHIL % (test code = EO%) 0.7 % 0.0-6.0 N BASOPHIL % (test code = BA%) 0.1 % 0.0-2.0 N NUCLEATED RBC % (test code = 0.0 /100WBC% 0.0-1.0 N NRBC%) NEUTROPHIL # (test code = NT#) 5.3 K/mm3 1.8-7.6 N IMMATURE GRANULOCYTE # (test 0.06 x10 3/uL 0.00-0.03 H code = IG#) LYMPHOCYTE # (test code = LY#) 1.9 K/mm3 0.6-3.2 N MONOCYTE # (test code = MO#) 0.9 K/mm3 0.3-1.1 N EOSINOPHIL # (test code = EO#) 0.1 K/mm3 0.0-0.4 N BASOPHIL # (test code = BA#) 0.0 K/mm3 0.0-0.1 N NUCLEATED RBC # (test code = 0.0 K/mm3 0.0-0.1 N NRBC#) MANUAL DIFF REQUIRED (test code NO DIFF/SCN CRITERIA = MDIFF) GLUCOSE BEDSIDE [id number] 21:03:00 Test Item Value Reference Range Interpretation Comments GLUCOSE BEDSIDE TESTING (test code 319 mg/dL 70-110 H = GLUBED) GLUCOSE BEDSIDE [id number] 17:20:00 Test Item Value Reference Range Interpretation Comments GLUCOSE BEDSIDE TESTING (test code 192 mg/dL 70-110 H = GLUBED) GLUCOSE BEDSIDE [id number] 12:30:00 Test Item Value Reference Range Interpretation Comments GLUCOSE BEDSIDE TESTING (test code 286 mg/dL 70-110 H = GLUBED) GLUCOSE BEDSIDE [id number] 08:24:00 Test Item Value Reference Range Interpretation Comments GLUCOSE BEDSIDE TESTING (test code 193 mg/dL 70-110 H = GLUBED) GLUCOSE BEDSIDE [id number] 20:46:00 Test Item Value Reference Range Interpretation Comments GLUCOSE BEDSIDE TESTING (test code 161 mg/dL 70-110 H = GLUBED) GLUCOSE BEDSIDE [id number] 16:40:00 Test Item Value Reference Range Interpretation Comments GLUCOSE BEDSIDE TESTING (test code 302 mg/dL 70-110 H = GLUBED) GLUCOSE BEDSIDE [id number] 12:17:00 Test Item Value Reference Range Interpretation Comments GLUCOSE BEDSIDE TESTING (test code 330 mg/dL 70-110 H = GLUBED) GLUCOSE BEDSIDE [id number] 08:39:00 Test Item Value Reference Range Interpretation Comments GLUCOSE BEDSIDE TESTING (test code 144 mg/dL 70-110 H = GLUBED) BASIC METABOLIC [id number] 06:08:00 Test Item Value Reference Range Interpretation Comments SODIUM (test code = NA) 138 mmol/L 134-147 N POTASSIUM (test code = 4.1 mmol/L 3.4-5.0 N K) CHLORIDE (test code = 104 mmol/L 100-108 N CL) CARBON DIOXIDE (test 30 mmol/L 21-32 N code = CO2) ANION GAP (test code = 4.0 GAP calc 4.0-15.0 N GAP) GLUCOSE (test code = 141 MG/DL 70-110 H GLU) BLOOD UREA NITROGEN 40 MG/DL 7-18 H (test code = BUN) GLOMERULAR FILTRATION >=60 max estimate >60 RATE (test code = GFR) estGFR CREATININE (test code = 0.9 MG/DL 0.6-1.0 N CREAT) CALCIUM (test code = CA) 8.7 MG/DL 8.5-10.1 N CBC W/AUTO [id number] 05:50:00 Test Item Value Reference Range Interpretation Comments WHITE BLOOD CELL (test code = 9.5 K/mm3 3.5-11.0 N WBC) RED BLOOD CELL (test code = 2.74 M/mm3 4.70-6.10 L RBC) HEMOGLOBIN (test code = HGB) 7.5 G/DL 10.4-14.9 L HEMATOCRIT (test code = HCT) 24.4 % 31.5-44.1 L MEAN CELL VOLUME (test code = 89.1 Fl 84.5-98.6 N MCV) MEAN CELL HGB (test code = MCH) 27.4 pg 27.0-34.2 N MEAN CELL HGB CONCETRATION 30.7 G/DL 31.5-34.0 L (test code = MCHC) RED CELL DISTRIBUTION WIDTH 18.2 SD 11.5-14.5 H (test code = RDW) PLATELET COUNT (test code = 340 K/mm3 150-450 N PLT) MEAN PLATELET VOLUME (test code 10.70 fL 7.0-10.5 H = MPV) NEUTROPHIL % (test code = NT%) 73.9 % 40-76 N IMMATURE GRANULOCYTE % (test 0.6 % 0.0-5.0 N code = IG%) LYMPHOCYTE % (test code = LY%) 13.5 % 20.5-51.1 L MONOCYTE % (test code = MO%) 11.7 % 1.7-9.3 H EOSINOPHIL % (test code = EO%) 0.3 % 0.0-6.0 N BASOPHIL % (test code = BA%) 0.0 % 0.0-2.0 N NUCLEATED RBC % (test code = 0.0 /100WBC% 0.0-1.0 N NRBC%) NEUTROPHIL # (test code = NT#) 7.0 K/mm3 1.8-7.6 N IMMATURE GRANULOCYTE # (test 0.06 x10 3/uL 0.00-0.03 H code = IG#) LYMPHOCYTE # (test code = LY#) 1.3 K/mm3 0.6-3.2 N MONOCYTE # (test code = MO#) 1.1 K/mm3 0.3-1.1 N EOSINOPHIL # (test code = EO#) 0.0 K/mm3 0.0-0.4 N BASOPHIL # (test code = BA#) 0.0 K/mm3 0.0-0.1 N NUCLEATED RBC # (test code = 0.0 K/mm3 0.0-0.1 N NRBC#) MANUAL DIFF REQUIRED (test code NO DIFF/SCN CRITERIA = MDIFF) GLUCOSE BEDSIDE [id number] 20:09:00 Test Item Value Reference Range Interpretation Comments GLUCOSE BEDSIDE TESTING (test code 304 mg/dL 70-110 H = GLUBED) GLUCOSE BEDSIDE [id number] 19:39:00 Test Item Value Reference Range Interpretation Comments GLUCOSE BEDSIDE TESTING (test code 175 mg/dL 70-110 H = GLUBED) Coronavirus 2019 nCoV [id number] 11:34:00 Test Item Value Reference Range Interpretation Comments Coronavirus 2019 nCoV Bedside (test Positive Negative code = [id number]) BASIC METABOLIC [id number] 05:48:00 Test Item Value Reference Range Interpretation Comments SODIUM (test code = NA) 137 mmol/L 134-147 N POTASSIUM (test code = K) 5.2 mmol/L 3.4-5.0 H CHLORIDE (test code = CL) 102 mmol/L 100-108 N CARBON DIOXIDE (test code = CO2) 33 mmol/L 21-32 H ANION GAP (test code = GAP) 2.0 GAP calc 4.0-15.0 L GLUCOSE (test code = GLU) 214 MG/DL 70-110 H BLOOD UREA NITROGEN (test code = 43 MG/DL 7-18 H BUN) GLOMERULAR FILTRATION RATE (test 52 estGFR >60 L code = GFR) CREATININE (test code = CREAT) 1.1 MG/DL 0.6-1.0 H CALCIUM (test code = CA) 8.8 MG/DL 8.5-10.1 N CBC W/AUTO [id number] 05:34:00 Test Item Value Reference Range Interpretation Comments WHITE BLOOD CELL (test code = 11.4 K/mm3 3.5-11.0 H WBC) RED BLOOD CELL (test code = 2.84 M/mm3 4.70-6.10 L RBC) HEMOGLOBIN (test code = HGB) 7.9 G/DL 10.4-14.9 L HEMATOCRIT (test code = HCT) 26.1 % 31.5-44.1 L MEAN CELL VOLUME (test code = 91.9 Fl 84.5-98.6 N MCV) MEAN CELL HGB (test code = MCH) 27.8 pg 27.0-34.2 N MEAN CELL HGB CONCETRATION 30.3 G/DL 31.5-34.0 L (test code = MCHC) RED CELL DISTRIBUTION WIDTH 17.9 SD 11.5-14.5 H (test code = RDW) PLATELET COUNT (test code = 346 K/mm3 150-450 N PLT) MEAN PLATELET VOLUME (test code 10.90 fL 7.0-10.5 H = MPV) NEUTROPHIL % (test code = NT%) 74.9 % 40-76 N IMMATURE GRANULOCYTE % (test 0.7 % 0.0-5.0 N code = IG%) LYMPHOCYTE % (test code = LY%) 11.8 % 20.5-51.1 L MONOCYTE % (test code = MO%) 12.2 % 1.7-9.3 H EOSINOPHIL % (test code = EO%) 0.3 % 0.0-6.0 N BASOPHIL % (test code = BA%) 0.1 % 0.0-2.0 N NUCLEATED RBC % (test code = 0.0 /100WBC% 0.0-1.0 N NRBC%) NEUTROPHIL # (test code = NT#) 8.5 K/mm3 1.8-7.6 H IMMATURE GRANULOCYTE # (test 0.08 x10 3/uL 0.00-0.03 H code = IG#) LYMPHOCYTE # (test code = LY#) 1.3 K/mm3 0.6-3.2 N MONOCYTE # (test code = MO#) 1.4 K/mm3 0.3-1.1 H EOSINOPHIL # (test code = EO#) 0.0 K/mm3 0.0-0.4 N BASOPHIL # (test code = BA#) 0.0 K/mm3 0.0-0.1 N NUCLEATED RBC # (test code = 0.0 K/mm3 0.0-0.1 N NRBC#) MANUAL DIFF REQUIRED (test code NO DIFF/SCN CRITERIA = MDIFF) GLUCOSE BEDSIDE [id number] 20:14:00 Test Item Value Reference Range Interpretation Comments GLUCOSE BEDSIDE TESTING (test code 231 mg/dL 70-110 H = GLUBED) GLUCOSE BEDSIDE [id number] 16:38:00 Test Item Value Reference Range Interpretation Comments GLUCOSE BEDSIDE TESTING (test code 225 mg/dL 70-110 H = GLUBED) GLUCOSE BEDSIDE [id number] 12:08:00 Test Item Value Reference Range Interpretation Comments GLUCOSE BEDSIDE TESTING (test code 307 mg/dL 70-110 H = GLUBED) GLUCOSE BEDSIDE [id number] 08:28:00 Test Item Value Reference Range Interpretation Comments GLUCOSE BEDSIDE TESTING (test code 114 mg/dL 70-110 H = GLUBED) BASIC METABOLIC [id number] 06:55:00 Test Item Value Reference Range Interpretation Comments SODIUM (test code = NA) 138 mmol/L 134-147 N POTASSIUM (test code = K) 4.0 mmol/L 3.4-5.0 N CHLORIDE (test code = CL) 100 mmol/L 100-108 N CARBON DIOXIDE (test code = CO2) 33 mmol/L 21-32 H ANION GAP (test code = GAP) 5.0 GAP calc 4.0-15.0 N GLUCOSE (test code = GLU) 109 MG/DL 70-110 N BLOOD UREA NITROGEN (test code = 38 MG/DL 7-18 H BUN) GLOMERULAR FILTRATION RATE (test 58 estGFR >60 L code = GFR) CREATININE (test code = CREAT) 1.0 MG/DL 0.6-1.0 N CALCIUM (test code = CA) 8.6 MG/DL 8.5-10.1 N CBC W/AUTO [id number] 06:37:00 Test Item Value Reference Range Interpretation Comments WHITE BLOOD CELL (test code = 11.7 K/mm3 3.5-11.0 H WBC) RED BLOOD CELL (test code = 2.78 M/mm3 4.70-6.10 L RBC) HEMOGLOBIN (test code = HGB) 7.7 G/DL 10.4-14.9 L HEMATOCRIT (test code = HCT) 24.9 % 31.5-44.1 L MEAN CELL VOLUME (test code = 89.6 Fl 84.5-98.6 N MCV) MEAN CELL HGB (test code = MCH) 27.7 pg 27.0-34.2 N MEAN CELL HGB CONCETRATION 30.9 G/DL 31.5-34.0 L (test code = MCHC) RED CELL DISTRIBUTION WIDTH 17.5 SD 11.5-14.5 H (test code = RDW) PLATELET COUNT (test code = 348 K/mm3 150-450 N PLT) MEAN PLATELET VOLUME (test code 10.80 fL 7.0-10.5 H = MPV) NEUTROPHIL % (test code = NT%) 76.9 % 40-76 H IMMATURE GRANULOCYTE % (test 0.7 % 0.0-5.0 N code = IG%) LYMPHOCYTE % (test code = LY%) 11.1 % 20.5-51.1 L MONOCYTE % (test code = MO%) 11.1 % 1.7-9.3 H EOSINOPHIL % (test code = EO%) 0.2 % 0.0-6.0 N BASOPHIL % (test code = BA%) 0.0 % 0.0-2.0 N NUCLEATED RBC % (test code = 0.0 /100WBC% 0.0-1.0 N NRBC%) NEUTROPHIL # (test code = NT#) 9.0 K/mm3 1.8-7.6 H IMMATURE GRANULOCYTE # (test 0.08 x10 3/uL 0.00-0.03 H code = IG#) LYMPHOCYTE # (test code = LY#) 1.3 K/mm3 0.6-3.2 N MONOCYTE # (test code = MO#) 1.3 K/mm3 0.3-1.1 H EOSINOPHIL # (test code = EO#) 0.0 K/mm3 0.0-0.4 N BASOPHIL # (test code = BA#) 0.0 K/mm3 0.0-0.1 N NUCLEATED RBC # (test code = 0.0 K/mm3 0.0-0.1 N NRBC#) MANUAL DIFF REQUIRED (test code NO DIFF/SCN CRITERIA = MDIFF) GLUCOSE BEDSIDE [id number] 20:59:00 Test Item Value Reference Range Interpretation Comments GLUCOSE BEDSIDE TESTING (test code 112 mg/dL 70-110 H = GLUBED) GLUCOSE BEDSIDE [id number] 16:32:00 Test Item Value Reference Range Interpretation Comments GLUCOSE BEDSIDE TESTING (test code 240 mg/dL 70-110 H = GLUBED) GLUCOSE BEDSIDE [id number] 12:49:00 Test Item Value Reference Range Interpretation Comments GLUCOSE BEDSIDE TESTING (test code 266 mg/dL 70-110 H = GLUBED) GLUCOSE BEDSIDE [id number] 08:35:00 Test Item Value Reference Range Interpretation Comments GLUCOSE BEDSIDE TESTING (test code 186 mg/dL 70-110 H = GLUBED) CBC W/AUTO [id number] 06:52:00 Test Item Value Reference Range Interpretation Comments WHITE BLOOD CELL 13.3 K/mm3 3.5-11.0 H (test code = WBC) RED BLOOD CELL (test 3.08 M/mm3 4.70-6.10 L code = RBC) HEMOGLOBIN (test code 8.5 G/DL 10.4-14.9 L = HGB) HEMATOCRIT (test code 28.4 % 31.5-44.1 L = HCT) MEAN CELL VOLUME 92.2 Fl 84.5-98.6 N (test code = MCV) MEAN CELL HGB (test 27.6 pg 27.0-34.2 N code = MCH) MEAN CELL HGB 29.9 G/DL 31.5-34.0 L CONCETRATION (test code = MCHC) RED CELL DISTRIBUTION 17.2 SD 11.5-14.5 H WIDTH (test code = RDW) PLATELET COUNT (test 356 K/mm3 150-450 N code = PLT) MEAN PLATELET VOLUME 11.20 fL 7.0-10.5 H (test code = MPV) NEUTROPHIL % (test 73.6 % 40-76 N code = NT%) IMMATURE GRANULOCYTE 0.8 % 0.0-5.0 N % (test code = IG%) LYMPHOCYTE % (test 12.5 % 20.5-51.1 L code = LY%) MONOCYTE % (test code 12.8 % 1.7-9.3 H = MO%) EOSINOPHIL % (test 0.2 % 0.0-6.0 N code = EO%) BASOPHIL % (test code 0.1 % 0.0-2.0 N = BA%) NUCLEATED RBC % (test 0.0 /100WBC% 0.0-1.0 N code = NRBC%) NEUTROPHIL # (test 9.8 K/mm3 1.8-7.6 H code = NT#) IMMATURE GRANULOCYTE 0.10 x10 3/uL 0.00-0.03 H # (test code = IG#) LYMPHOCYTE # (test 1.7 K/mm3 0.6-3.2 N code = LY#) MONOCYTE # (test code 1.7 K/mm3 0.3-1.1 H = MO#) EOSINOPHIL # (test 0.0 K/mm3 0.0-0.4 N code = EO#) BASOPHIL # (test code 0.0 K/mm3 0.0-0.1 N = BA#) NUCLEATED RBC # (test 0.0 K/mm3 0.0-0.1 N code = NRBC#) MANUAL DIFF REQUIRED NO DIFF/SCN CRITERIA SLIDE R SHANNONW (test code = MDIFF) CONSISTA NT WITH AUTO DIFFERENTI AL. BASIC METABOLIC [id number] 06:28:00 Test Item Value Reference Range Interpretation Comments SODIUM (test code = NA) 135 mmol/L 134-147 N POTASSIUM (test code = 4.4 mmol/L 3.4-5.0 N K) CHLORIDE (test code = 99 mmol/L 100-108 L CL) CARBON DIOXIDE (test 31 mmol/L 21-32 N code = CO2) ANION GAP (test code = 5.0 GAP calc 4.0-15.0 N GAP) GLUCOSE (test code = 150 MG/DL 70-110 H GLU) BLOOD UREA NITROGEN 37 MG/DL 7-18 H (test code = BUN) GLOMERULAR FILTRATION >=60 max estimate >60 RATE (test code = GFR) estGFR CREATININE (test code = 0.9 MG/DL 0.6-1.0 N CREAT) CALCIUM (test code = CA) 8.8 MG/DL 8.5-10.1 N [id number] 06:28:00 Test Item Value Reference Range Interpretation Comments PHOSPHOROUS (test code = PHOS) 2.6 MG/DL 2.5-4.9 N LACTIC DEHYDROGENASE(LDH)2020-06-23 06:28:00 Test Item Value Reference Range Interpretation Comments LACTIC DEHYDROGENASE(LDH) (test 271 Unit/L 84-246 H code = LDH) [id number] 06:28:00 Test Item Value Reference Range Interpretation Comments MAGNESIUM (test code = MAG) 2.1 MG/DL 1.8-2.4 N CBC W/AUTO [id number] 06:15:00 Test Item Value Reference Range Interpretation Comments WHITE BLOOD CELL (test code = WBC) 13.3 K/mm3 3.5-11.0 H RED BLOOD CELL (test code = RBC) 3.08 M/mm3 4.70-6.10 L HEMOGLOBIN (test code = HGB) 8.5 G/DL 10.4-14.9 L HEMATOCRIT (test code = HCT) 28.4 % 31.5-44.1 L MEAN CELL VOLUME (test code = MCV) 92.2 Fl 84.5-98.6 N MEAN CELL HGB (test code = MCH) 27.6 pg 27.0-34.2 N MEAN CELL HGB CONCETRATION (test 29.9 G/DL 31.5-34.0 L code = MCHC) RED CELL DISTRIBUTION WIDTH (test SD 11.5-14.5 H code = RDW) PLATELET COUNT (test code = PLT) 356 K/mm3 150-450 N MEAN PLATELET VOLUME (test code = fL 7.0-10.5 H MPV) NEUTROPHIL % (test code = NT%) % 40-76 N IMMATURE GRANULOCYTE % (test code % 0.0-5.0 N = IG%) LYMPHOCYTE % (test code = LY%) % 20.5-51.1 L MONOCYTE % (test code = MO%) % 1.7-9.3 H EOSINOPHIL % (test code = EO%) % 0.0-6.0 N BASOPHIL % (test code = BA%) % 0.0-2.0 N NUCLEATED RBC % (test code = /100WBC% 0.0-1.0 N NRBC%) NEUTROPHIL # (test code = NT#) K/mm3 1.8-7.6 H IMMATURE GRANULOCYTE # (test code x10 3/uL 0.00-0.03 H = IG#) LYMPHOCYTE # (test code = LY#) K/mm3 0.6-3.2 N MONOCYTE # (test code = MO#) K/mm3 0.3-1.1 H EOSINOPHIL # (test code = EO#) K/mm3 0.0-0.4 N BASOPHIL # (test code = BA#) K/mm3 0.0-0.1 N NUCLEATED RBC # (test code = K/mm3 0.0-0.1 N NRBC#) MANUAL DIFF REQUIRED (test code = DIFF/SCN CRITERIA MDIFF) GLUCOSE BEDSIDE [id number] 19:43:00 Test Item Value Reference Range Interpretation Comments GLUCOSE BEDSIDE TESTING (test code 405 mg/dL 70-110 H = GLUBED) GLUCOSE BEDSIDE [id number] 16:28:00 Test Item Value Reference Range Interpretation Comments GLUCOSE BEDSIDE TESTING (test code 299 mg/dL 70-110 H = GLUBED) GLUCOSE BEDSIDE [id number] 12:20:00 Test Item Value Reference Range Interpretation Comments GLUCOSE BEDSIDE TESTING (test code 273 mg/dL 70-110 H = GLUBED) GLUCOSE BEDSIDE [id number] 08:12:00 Test Item Value Reference Range Interpretation Comments GLUCOSE BEDSIDE TESTING (test code 118 mg/dL 70-110 H = GLUBED) BASIC METABOLIC [id number] 06:50:00 Test Item Value Reference Range Interpretation Comments SODIUM (test code = NA) 137 mmol/L 134-147 N POTASSIUM (test code = K) 4.2 mmol/L 3.4-5.0 N CHLORIDE (test code = CL) 100 mmol/L 100-108 N CARBON DIOXIDE (test code = CO2) 34 mmol/L 21-32 H ANION GAP (test code = GAP) 3.0 GAP calc 4.0-15.0 L GLUCOSE (test code = GLU) 95 MG/DL 70-110 N BLOOD UREA NITROGEN (test code = 42 MG/DL 7-18 H BUN) GLOMERULAR FILTRATION RATE (test 58 estGFR >60 L code = GFR) CREATININE (test code = CREAT) 1.0 MG/DL 0.6-1.0 N CALCIUM (test code = CA) 9.3 MG/DL 8.5-10.1 N [id number] 06:50:00 Test Item Value Reference Range Interpretation Comments PHOSPHOROUS (test code = PHOS) 2.6 MG/DL 2.5-4.9 N LACTIC DEHYDROGENASE(LDH)2020-06-22 06:50:00 Test Item Value Reference Range Interpretation Comments LACTIC DEHYDROGENASE(LDH) (test 326 Unit/L 84-246 H code = LDH) [id number] 06:50:00 Test Item Value Reference Range Interpretation Comments MAGNESIUM (test code = MAG) 1.7 MG/DL 1.8-2.4 L [id number] 06:47:00 Test Item Value Reference Range Interpretation Comments D-DIMER (test code = DDIMER) 3044 ng/mLFEU 215-500 HH CBC W/AUTO [id number] 06:39:00 Test Item Value Reference Range Interpretation Comments WHITE BLOOD CELL (test code = 16.1 K/mm3 3.5-11.0 H WBC) RED BLOOD CELL (test code = 3.20 M/mm3 4.70-6.10 L RBC) HEMOGLOBIN (test code = HGB) 8.9 G/DL 10.4-14.9 L HEMATOCRIT (test code = HCT) 28.5 % 31.5-44.1 L MEAN CELL VOLUME (test code = 89.1 Fl 84.5-98.6 N MCV) MEAN CELL HGB (test code = MCH) 27.8 pg 27.0-34.2 N MEAN CELL HGB CONCETRATION 31.2 G/DL 31.5-34.0 L (test code = MCHC) RED CELL DISTRIBUTION WIDTH 16.8 SD 11.5-14.5 H (test code = RDW) PLATELET COUNT (test code = 350 K/mm3 150-450 N PLT) MEAN PLATELET VOLUME (test code 12.20 fL 7.0-10.5 H = MPV) NEUTROPHIL % (test code = NT%) 79.0 % 40-76 H IMMATURE GRANULOCYTE % (test 0.7 % 0.0-5.0 N code = IG%) LYMPHOCYTE % (test code = LY%) 8.2 % 20.5-51.1 L MONOCYTE % (test code = MO%) 11.8 % 1.7-9.3 H EOSINOPHIL % (test code = EO%) 0.2 % 0.0-6.0 N BASOPHIL % (test code = BA%) 0.1 % 0.0-2.0 N NUCLEATED RBC % (test code = 0.0 /100WBC% 0.0-1.0 N NRBC%) NEUTROPHIL # (test code = NT#) 12.7 K/mm3 1.8-7.6 H IMMATURE GRANULOCYTE # (test 0.11 x10 3/uL 0.00-0.03 H code = IG#) LYMPHOCYTE # (test code = LY#) 1.3 K/mm3 0.6-3.2 N MONOCYTE # (test code = MO#) 1.9 K/mm3 0.3-1.1 H EOSINOPHIL # (test code = EO#) 0.0 K/mm3 0.0-0.4 N BASOPHIL # (test code = BA#) 0.0 K/mm3 0.0-0.1 N NUCLEATED RBC # (test code = 0.0 K/mm3 0.0-0.1 N NRBC#) MANUAL DIFF REQUIRED (test code NO DIFF/SCN CRITERIA = MDIFF) GLUCOSE BEDSIDE [id number] 21:52:00 Test Item Value Reference Range Interpretation Comments GLUCOSE BEDSIDE TESTING (test code 195 mg/dL 70-110 H = GLUBED) GLUCOSE BEDSIDE [id number] 16:38:00 Test Item Value Reference Range Interpretation Comments GLUCOSE BEDSIDE TESTING (test code 374 mg/dL 70-110 H = GLUBED) GLUCOSE BEDSIDE [id number] 12:17:00 Test Item Value Reference Range Interpretation Comments GLUCOSE BEDSIDE TESTING (test code 420 mg/dL 70-110 H = GLUBED) GLUCOSE BEDSIDE [id number] 08:22:00 Test Item Value Reference Range Interpretation Comments GLUCOSE BEDSIDE TESTING (test code 238 mg/dL 70-110 H = GLUBED) CBC W/AUTO [id number] 05:54:00 Test Item Value Reference Range Interpretation Comments WHITE BLOOD CELL (test code = 15.4 K/mm3 3.5-11.0 H WBC) RED BLOOD CELL (test code = 3.02 M/mm3 4.70-6.10 L RBC) HEMOGLOBIN (test code = HGB) 8.2 G/DL 10.4-14.9 L HEMATOCRIT (test code = HCT) 26.3 % 31.5-44.1 L MEAN CELL VOLUME (test code = 87.1 Fl 84.5-98.6 N MCV) MEAN CELL HGB (test code = MCH) 27.2 pg 27.0-34.2 N MEAN CELL HGB CONCETRATION 31.2 G/DL 31.5-34.0 L (test code = MCHC) RED CELL DISTRIBUTION WIDTH 15.9 SD 11.5-14.5 H (test code = RDW) PLATELET COUNT (test code = 352 K/mm3 150-450 N PLT) MEAN PLATELET VOLUME (test code 11.10 fL 7.0-10.5 H = MPV) NEUTROPHIL % (test code = NT%) 79.1 % 40-76 H IMMATURE GRANULOCYTE % (test 1.1 % 0.0-5.0 N code = IG%) LYMPHOCYTE % (test code = LY%) 9.5 % 20.5-51.1 L MONOCYTE % (test code = MO%) 10.1 % 1.7-9.3 H EOSINOPHIL % (test code = EO%) 0.1 % 0.0-6.0 N BASOPHIL % (test code = BA%) 0.1 % 0.0-2.0 N NUCLEATED RBC % (test code = 0.0 /100WBC% 0.0-1.0 N NRBC%) NEUTROPHIL # (test code = NT#) 12.2 K/mm3 1.8-7.6 H IMMATURE GRANULOCYTE # (test 0.17 x10 3/uL 0.00-0.03 H code = IG#) LYMPHOCYTE # (test code = LY#) 1.5 K/mm3 0.6-3.2 N MONOCYTE # (test code = MO#) 1.6 K/mm3 0.3-1.1 H EOSINOPHIL # (test code = EO#) 0.0 K/mm3 0.0-0.4 N BASOPHIL # (test code = BA#) 0.0 K/mm3 0.0-0.1 N NUCLEATED RBC # (test code = 0.0 K/mm3 0.0-0.1 N NRBC#) MANUAL DIFF REQUIRED (test code NO DIFF/SCN CRITERIA = MDIFF) [id number] 05:21:00 Test Item Value Reference Range Interpretation Comments D-DIMER (test code = DDIMER) 4184 ng/mLFEU 215-500 HH BASIC METABOLIC [id number] 05:21:00 Test Item Value Reference Range Interpretation Comments SODIUM (test code = NA) 135 mmol/L 134-147 N POTASSIUM (test code = K) 4.0 mmol/L 3.4-5.0 N CHLORIDE (test code = CL) 97 mmol/L 100-108 L CARBON DIOXIDE (test code = CO2) 36 mmol/L 21-32 H ANION GAP (test code = GAP) 2.0 GAP calc 4.0-15.0 L GLUCOSE (test code = GLU) 243 MG/DL 70-110 H BLOOD UREA NITROGEN (test code = 42 MG/DL 7-18 H BUN) GLOMERULAR FILTRATION RATE (test 58 estGFR >60 L code = GFR) CREATININE (test code = CREAT) 1.0 MG/DL 0.6-1.0 N CALCIUM (test code = CA) 8.5 MG/DL 8.5-10.1 N [id number] 05:21:00 Test Item Value Reference Range Interpretation Comments PHOSPHOROUS (test code = PHOS) 2.9 MG/DL 2.5-4.9 N LACTIC DEHYDROGENASE(LDH)2020-06-21 05:21:00 Test Item Value Reference Range Interpretation Comments LACTIC DEHYDROGENASE(LDH) (test 271 Unit/L 84-246 H code = LDH) [id number] 05:21:00 Test Item Value Reference Range Interpretation Comments MAGNESIUM (test code = MAG) 1.4 MG/DL 1.8-2.4 L CBC W/AUTO [id number] 05:04:00 Test Item Value Reference Range Interpretation Comments WHITE BLOOD CELL (test code = WBC) 15.4 K/mm3 3.5-11.0 H RED BLOOD CELL (test code = RBC) 3.02 M/mm3 4.70-6.10 L HEMOGLOBIN (test code = HGB) 8.2 G/DL 10.4-14.9 L HEMATOCRIT (test code = HCT) 26.3 % 31.5-44.1 L MEAN CELL VOLUME (test code = MCV) 87.1 Fl 84.5-98.6 N MEAN CELL HGB (test code = MCH) 27.2 pg 27.0-34.2 N MEAN CELL HGB CONCETRATION (test 31.2 G/DL 31.5-34.0 L code = MCHC) RED CELL DISTRIBUTION WIDTH (test SD 11.5-14.5 H code = RDW) PLATELET COUNT (test code = PLT) 352 K/mm3 150-450 N MEAN PLATELET VOLUME (test code = fL 7.0-10.5 H MPV) NEUTROPHIL % (test code = NT%) % 40-76 H IMMATURE GRANULOCYTE % (test code % 0.0-5.0 N = IG%) LYMPHOCYTE % (test code = LY%) % 20.5-51.1 L MONOCYTE % (test code = MO%) % 1.7-9.3 H EOSINOPHIL % (test code = EO%) % 0.0-6.0 N BASOPHIL % (test code = BA%) % 0.0-2.0 N NUCLEATED RBC % (test code = /100WBC% 0.0-1.0 N NRBC%) NEUTROPHIL # (test code = NT#) K/mm3 1.8-7.6 H IMMATURE GRANULOCYTE # (test code x10 3/uL 0.00-0.03 H = IG#) LYMPHOCYTE # (test code = LY#) K/mm3 0.6-3.2 N MONOCYTE # (test code = MO#) K/mm3 0.3-1.1 H EOSINOPHIL # (test code = EO#) K/mm3 0.0-0.4 N BASOPHIL # (test code = BA#) K/mm3 0.0-0.1 N NUCLEATED RBC # (test code = K/mm3 0.0-0.1 N NRBC#) MANUAL DIFF REQUIRED (test code = DIFF/SCN CRITERIA MDIFF) THROMBOPLASTIN TIME [id number] 02:51:00 Test Item Value Reference Range Interpretation Comments THROMBOPLASTIN TIME PARTIAL 160.7 SECONDS 26-35 HH (test code = PTT) GLUCOSE BEDSIDE [id number] 21:12:00 Test Item Value Reference Range Interpretation Comments GLUCOSE BEDSIDE TESTING (test code 297 mg/dL 70-110 H = GLUBED) THROMBOPLASTIN TIME [id number] 20:35:00 Test Item Value Reference Range Interpretation Comments THROMBOPLASTIN TIME PARTIAL 35.2 SECONDS 26-35 H (test code = PTT) GLUCOSE BEDSIDE [id number] 16:25:00 Test Item Value Reference Range Interpretation Comments GLUCOSE BEDSIDE TESTING (test code 293 mg/dL 70-110 H = GLUBED) LIPID PROFILE (CORONARY RISK)2020-06-20 15:42:00 Test Item Value Reference Range Interpretation Comments TRIGLYCERIDES (test code = TRIG) 57 MG/DL 0-150 N CHOLESTEROL (test code = CHOL) 80 MG/DL 133-200 L CHOLESTEROL/HDL RATIO (test code = 1.90 RATIO >0 CHOLHDL) HDL CHOLESTEROL (test code = HDL) 42 MG/DL 40-59 N NON-HDL CHOLESTEROL (test code = 38 mg/dL <130 NHDL) LIPOPROTEIN LDL (test code = LDL) 34 MG/DL 0-129 N LDL/HDL (test code = LDL/HDL) 0.80 Ratio 1.48-3.22 Avg L [id number] 15:14:00 Test Item Value Reference Range Interpretation Comments TROPONIN-I (test 0.791 NG/ML 0.000-0.045 HH Negative: < /= 0.045 code = TROPI) Positive: >/= 0.046 Correlation wit h serial results, other cardiac markers, and cl inical findings is nec essary to determine the c linical significance of this result. Quantit ative results using d ifferent methodologies s hould not be compared to one another as nume rical results may delmy yby method. Completed by Nursing: NO- CTA [id number] 14:47:00 [facility] 1950 Sex: F Name: IRINA FONG [facility] : 1950 Age/S: 70 / F [id number] [place] Unit #: [id number] Loc: [place] [address] Phys: Nito Shipley MD Acct: [id number] Dis Date: Status: REG ER PHONE #: [phone] Exam Date: 06/20/2020 1841 FAX #: Reason: Chest Pain r/o PE EXAMS: CPT: [id number] CTA CHEST 02598 CTA chest, contrast-enhanced (pulmonary embolism protocol }.Reconstructed sagittal and coronal images, MIP images. HISTORY: Chest pain, pulmonary embolism. All studies use automated exposure control, iterative reconstruction technique, and/or adjustment of mA and/or kV according to patient size for optimum radiation dose reduction. Following the intravenous administration of 100 mL of Isovue-370, a study the of the chest was performed on pulmonary embolism protocol. Reconstructed CT angiogram images are included. Limited filling of aorta is seen. No evidence of aneurysm. The main pulmonary arteries, upper lobe vessels and left lower lobe vessels are normally perfused. The right lower lobe pulmonary artery shows a thin, linear filling defect with a more tubular filling defect in the more distal lower lobe right lower lobe artery. Good perfusion occurs around the small filling defects suggesting chronic/old emboli. Correlation for any peripheral source of new emboli may be needed by DVT study. Heart size appears to be enlarged with pericardial fluid or possibly thickening. Maximum measurement at 1.3 cm. Trace pleural effusions seen, bilaterally. No evidence of hilar or mediastinal adenopathy can be seen. Chest wall structures are symmetric. Lung window settings show multiple areas of groundglass in the lungs suspicious for pneumonia possibly Covid pneumonia. Do not show any bullaformation, mass, infiltrates or pneumothorax. Reformatted MIP images do not show emboli. Aortic appearance is intact. IMPRESSION: No large vessel acute emboli suggested. Normal aortic diameter seen. 2 small filling central defects mainly right lower lobe that are surrounded by normal perfusion likely represent old/residual PE findings. PAGE 1 Signed Report (CONTINUED) Name: IRINA FONG : 1950 Age/S:70 / F [address] [place] Unit #: [id number] Loc: [place] [address] Phys: Nito Shipley MD Acct: [id number] Dis Date: Status: REG ER PHONE #: [phone] Exam Date: 06/20/2020 1421 FAX #: Reason: Chest Pain r/o PE EXAMS: CPT: [id number] CTA CHEST 13145 <Continued> Cardiomegaly with small to moderate pericardial effusion. Bilateral pneumonia. Location: 9 at 1447 Reported and signed by: Ricky Alegre M.D CC: Nito Shipley MD Technologist:Janett Graf, RT(R)(CT)(MRI) CTDI: DLP: Trnscb Date/Time:06/20/2020 (1447) [email or web address] Orig Print D/T: S: 06/20/2020 (0152) PAGE 2 Signed ReportCoronavirus 2019 nCoV [id number] 13:48:00 Test Item Value Reference Range Interpretation Comments Coronavirus 2019 nCoV Bedside (test Positive Negative code = [id number]) BASIC METABOLIC [id number] 13:24:00 Test Item Value Reference Range Interpretation Comments SODIUM (test code = NA) 136 mmol/L 134-147 N POTASSIUM (test code = K) 4.5 mmol/L 3.4-5.0 N CHLORIDE (test code = CL) 98 mmol/L 100-108 L CARBON DIOXIDE (test code = CO2) 33 mmol/L 21-32 H ANION GAP (test code = GAP) 5.0 GAP calc 4.0-15.0 N GLUCOSE (test code = GLU) 250 MG/DL 70-110 H BLOOD UREA NITROGEN (test code = 50 MG/DL 7-18 H BUN) GLOMERULAR FILTRATION RATE (test 52 estGFR >60 L code = GFR) CREATININE (test code = CREAT) 1.1 MG/DL 0.6-1.0 H CALCIUM (test code = CA) 9.0 MG/DL 8.5-10.1 N Completed by Nursing: NOCREATINE KINASE (CK)2020-06-20 13:24:00 Test Item Value Reference Range Interpretation Comments CREATINE KINASE (CK) (test code = 37 Unit/L 26-192 N CK) Completed by Nursing: [id number] 13:24:00 Test Item Value Reference Range Interpretation Comments TROPONIN-I (test 0.932 NG/ML 0.000-0.045 HH Negative: < /= 0.045 code = TROPI) Positive: >/= 0.046 Correlation wit h serial results, other cardiac markers, and cl inical findings is nec essary to determine the c linical significance of this result. Quantit ative results using d ifferent methodologies s hould not be compared to one another as nume rical results may delmy yby method. Completed by Nursing: NOPROTHROMBIN [id number] 13:03:00 Test Item Value Reference Range Interpretation Comments PT PATIENT (test code = PTP) 15.8 SECONDS 9.3-12.9 H INTERNATIONAL NORMAL RATIO 1.39 INR Unit 0.8-1.2 H (test code = INR) THROMBOPLASTIN TIME [id number] 13:03:00 Test Item Value Reference Range Interpretation Comments THROMBOPLASTIN TIME PARTIAL 18.0 SECONDS 26-35 L (test code = PTT) - XR CHEST 1 [id number] 13:02:00 [facility] : 1950 Sex: F Name: IRINA FONG : 1950 Age/S: 70 / F [address] [place] Unit #: [id number] Loc: [place] [address] Phys: Nito Shipley MD Acct: [id number] Dis Date: Status: REG ER PHONE #: [phone] Exam Date: 06/20/2020 1245 FAX #: Reason: chest pain EXAMS: CPT: [id number] XR CHEST 1 V 44777 Fluoro Time: DAP (Gy m2): Air Kerma (mGy): HISTORY: Chest pain. Location: C3 COMPARISON:None FINDINGS: Heart is mildly prominent. Aortic calcifications are present. There is patchy mixed interstitial and airspace opacities bilaterally compatible with pneumonia. No pneumothorax. IMPRESSION: 1. Patchy bilateral opacities compatible with pneumonia. at 1302 Reported and signed by: Ricky Munoz M.D. CC: Nito Shipley MD PAGE 1 Signed Report Name: IRINA FONG : 1950ge/S: 70 / F [id number] [address] [place] Unit #: [id number] Loc: [place] [address] Phys: Nito Shipley MD Acct: [id number] Dis Date: Status: REG ER PHONE#: [phone] Exam Date: 06/20/2020 1245 FAX #: Reason: chest pain EXAMS: CPT: [id number] XR CHEST 1 V 04490 Fluoro Time: DAP (Gy m2): Air Kerma (mGy): <Continued> Technologist: Anna Maldonado, RT(R) Trnscb Date/Time: 06/20/2020 (1302) [email or web address] Orig Print D/T: S: 06/20/2020 (9162) PAGE 2 Signed ReportCBC W/O [id number] 12:58:00 Test Item Value Reference Range Interpretation Comments WHITE BLOOD CELL (test code = WBC) 18.1 K/mm3 3.5-11.0 H RED BLOOD CELL (test code = RBC) 3.10 M/mm3 4.70-6.10 L HEMOGLOBIN (test code = HGB) 8.5 G/DL 10.4-14.9 L HEMATOCRIT (test code = HCT) 27.1 % 31.5-44.1 L MEAN CELL VOLUME (test code = MCV) 87.4 Fl 84.5-98.6 N MEAN CELL HGB (test code = MCH) 27.4 pg 27.0-34.2 N MEAN CELL HGB CONCETRATION (test 31.4 G/DL 31.5-34.0 L code = MCHC) RED CELL DISTRIBUTION WIDTH (test 15.8 SD 11.5-14.5 H code = RDW) PLATELET COUNT (test code = PLT) 327 K/mm3 150-450 N MEAN PLATELET VOLUME (test code = 11.70 fL 7.0-10.5 H MPV)
[2020-07-24 15:31] LABS: Protime INR 1.57
[2020-07-24] MEDS ORDERED: HEPARIN 5000 UNIT/ML 1 ML VIAL ONE ×2 (15:33→15:43)
[2020-07-24 15:34] LABS: Absolute Lymphocytes (CBC) 0.9 K/uL (0.7-4.9); Basophils % 1.1 % (0-1.3); Hematocrit 28.6 % (36.0-45.0); Lymphocytes % 10.3 % (15.3-44.8); MPV 9.1 fL (7.6-11.3); RBC Red Blood Cell Count 3.48 M/uL (3.86-4.86)
[2020-07-24] MEDS ORDERED: NITROGLYCERIN 0.4 MG/TAB SL ONE (15:34)
[2020-07-24] MEDS ORDERED: MORPHINE 4 MG/ML SYR ONE (15:34)
[2020-07-24] MEDS ORDERED: ONDANSETRON 4 MG/2 ML VIAL ONE (15:34)
[2020-07-24] MEDS ORDERED: HEPARIN/D5W 25,000 UNIT/500 ML BAG IV ONE (15:44)
--- NOTE | 2020-07-24 15:47 | RAD REPORT ---
EXAM DESCRIPTION: Elisha Single View07/24/2020 3:26 pm CLINICAL HISTORY: Chest pain COMPARISON: June 2020 FINDINGS: Moderate bilateral pulmonary opacities. . The heart is moderately enlarged IMPRESSION: Moderate bilateral pulmonary opacities probably pulmonary edema.
[2020-07-24 15:57] LABS: Albumin 3.1 g/dL (3.4-5.0); Bilirubin Direct 0.2 mg/dL (0-0.2); Bilirubin Total 0.6 mg/dL (0.2-1.0); Magnesium 1.7 mg/dL (1.8-2.4); Potassium 4.2 mmol/L (3.5-5.1); Protein, Total 7.3 g/dL (6.4-8.2)
[2020-07-24 16:00] LABS: Troponin (Emerg Dept Use Only) 2.97 ng/mL (0.0-0.045)
[2020-07-24] MEDS ORDERED: CLOPIDOGREL 75 MG TABLET ONE ×2 (16:05→16:39)
--- NOTE | 2020-07-24 17:26 | ER ---
Nurse's Notes [facility] Name: Linda Menezes Age: 70 yrs Sex: Female : 1950 Arrival Date: 07/24/2020 Time: 14:48 Bed 14 Private MD: Diagnosis: Non-ST elevation (NSTEMI) myocardial infarction Presentation: 07/24 14:52 Chief complaint: EMS states: "pt is form home reporting back pain that radiates around jd3 the left side of her back to her chest. the pt is also reporting shortness of breath related to the pain. the pt reported a recent [place] that that happened about 4 moths.". Coronavirus screen: shortness of breath, Client presents with at least one sign or symptom that may indicate coronavirus-19. Standard/surgical mask placed on the client. Provider contacted for isolation considerations. Ebola Screen: Patient negative for fever greater than or equal to 101.5 degrees Fahrenheit, and additional compatible Ebola Virus Disease symptoms. Initial Sepsis Screen: Does the patient meet any 2 criteria? No. Patient's initial sepsis screen is negative. Does the patient have a suspected source of infection? No. Patient's initial sepsis screen is negative. Risk Assessment: Do you want to hurt yourself or someone else? Patient reports no desire to harm self or others. Onset of symptoms was July 24, 2020. 14:52 Method Of Arrival: EMS: [facility] 14:52 Acuity: ALHAJI 2 j 14:52 Care prior to arrival: Medication(s) given: ASA, 81 mg, x 4. jd3 Historical: - Allergies: 15:00 NKA; jd3 - PMHx: 15:00 chronic back pain; neuropathy; restless leg syndrome; intussusception intestine; jd3 Diabetes - NIDDM; Hypertension; Myocardial infarction; - PSHx: 15:00 Hysterectomy; jd3 - Immunization history:: Adult Immunizations up to date. - Social history:: Smoking status: Patient denies any tobacco usage or history of. Screenin:02 Abuse screen: Denies threats or abuse. Nutritional screening: No deficits noted. jd3 Tuberculosis screening: No symptoms or risk factors identified. Fall Risk Ambulatory Aid- None/Bed Rest/Nurse Assist (0 pts). Gait- Normal/Bed Rest/Wheelchair (0 pts) Mental Status- Oriented to own ability (0 pts). Total Vargas Fall Scale indicates No Risk (0-24 pts). Assessment: 14:50 General: Appears distressed, uncomfortable, Behavior is cooperative, anxious, Denies zb fever, feeling ill. Pain: Complains of pain in back pain Pain radiates to chest and left arm Pain currently is 8 out of 10 on a pain scale. Quality of pain is described as heavy, pressure, Pain began today Is continuous, Alleviated by nothing. Also complains of nausea, shortness of breath. Neuro: Level of Consciousness is awake, alert, obeys commands, Oriented to person, place, time, situation, Reports dizziness, since today. Cardiovascular: Reports chest pain, fatigue, nausea, shortness of breath, syncope, vomiting, since today Heart tones S1 S2 present Capillary refill < 3 seconds in bilateral fingers Patient's skin is warm and dry. Edema is 2+ to bilateral legs. Respiratory: Reports shortness of breath at rest Airway is patent Respiratory effort is even, unlabored, Respiratory pattern is regular, symmetrical, Breath sounds are diminished in left posterior lower lobe and right posterior lower lobe. GI: Abdomen is round non-distended, Bowel sounds present X 4 quads. Abd is soft and non tender Reports nausea, vomiting. : No signs and/or symptoms were reported regarding the genitourinary system. EENT: No signs and/or symptoms were reported regarding the EENT system. Derm: Skin is intact, Skin is dry, Skin is pale, Skin temperature is warm. Musculoskeletal: Circulation, motion, and sensation intact. Capillary refill < 3 seconds, in bilateral fingers. Range of motion: intact in all extremities. 15:00 Reassessment: EKG given to provider. zb 15:50 Reassessment: Patient appears in no apparent distress at this time. Patient and/or zb family updated on plan of care and expected duration. Pain level reassessed. Patient is alert, oriented x 3, equal unlabored respirations, skin warm/dry/pink. patient lying in bed. pain decreased to 5/10. 16:50 Reassessment: Patient appears in no apparent distress at this time. Patient and/or zb family updated on plan of care and expected duration. Pain level reassessed. Patient is alert, oriented x 3, equal unlabored respirations, skin warm/dry/pink. spoke w/ patient daughter updated on care. 18:30 Reassessment: Patient appears in no apparent distress at this time. Patient and/or zb family updated on plan of care and expected duration. Pain level reassessed. Patient is alert, oriented x 3, equal unlabored respirations, skin warm/dry/pink. hospitalist at bedside, discussing POC. 19:00 Reassessment: Patient appears in no apparent distress at this time. Patient and/or zb family updated on plan of care and expected duration. Pain level reassessed. Patient is alert, oriented x 3, equal unlabored respirations, skin warm/dry/pink. light dimmed. IV infusing. no c/o anything at this time. patient appears to be resting. Vital Signs: 15:01 BP 122 / 84; Pulse 88; Resp 20 S; Temp 98.8(TE); Pulse Ox 96% on R/A; Weight 77.11 kg jd3 (R); Height 5 ft. 4 in. (162.56 cm) (R); Pain 7/10; 15:22 Weight 71.58 kg (M); jd3 16:05 BP 123 / 70; Pulse 86; Resp 14 S; Pulse Ox 99% on R/A; jd3 17:00 BP 124 / 71; Pulse 83; Resp 16; Pulse Ox 98% on R/A; zb 18:00 BP 108 / 58; Pulse 83; Resp 14; Pulse Ox 99% on R/A; zb 19:00 BP 107 / 65; Pulse 82; Resp 14; Pulse Ox 98% on R/A; zb 15:22 Body Mass Index 27.09 (71.58 kg, 162.56 cm) jd3 ED Course: 14:48 Patient arrived in ED. em1 14:49 Silke Carmona, SENG is Primary Nurse. zb 14:52 EKG done, by ED staff, reviewed by Justin Singh MD. jd3 14:56 Justin Singh MD is Attending Physician. kdr 14:59 Triage completed. jd3 15:02 Arm band placed on. jd3 15:02 Patient has correct armband on for positive identification. Placed in gown. Bed in low jd3 position. Call light in reach. Side rails up X 1. business continuity global director on. Pulse ox on. NIBP on. 15:14 Inserted saline lock: 20 gauge in right antecubital area, using aseptic technique. jd3 Blood collected. 15:26 XRAY Chest (1 view) In Process Unspecified. EDMS 17:25 Scott Rodríguez is Hospitalizing Provider. kdr 07/25 07:20 Primary Nurse role handed off by Silke Carmona RN sv Administered Medications: 07/24 15:14 Not Given (recieved from EMS): Aspirin Chewable Tablet 324 mg PO once; 81 mg tablets x 4jd3 15:20 Drug: Zofran (Ondansetron) 4 mg Route: IVP; Site: right antecubital; zb 16:00 Follow up: Response: No adverse reaction; Nausea is decreased zb 15:25 Drug: Nitroglycerin 0.4 mg Route: Sublingual; zb 15:30 Follow up: Response: No adverse reaction; Pain is decreased; Blood pressure is unchangedzb 15:36 Drug: Heparin ([place] Drip) 12 units/kg/hr - (HEParin 24380 units, D5W 500 ml) zb {Co-Signature: shayna (Roge Quinteros RN).} Route: IV; Rate: calculated rate; Site: right antecubital; 16:00 Follow up: Response: No adverse reaction zb 15:36 Drug: Heparin (AZ-Bolus No thrombolytic) - HEParin 60 units/kg {Co-Signature: shayna mixon (Roge Quinteros RN).} Route: IVP; Site: right antecubital; 15:43 Drug: morphine 4 mg Route: IVP; Site: right antecubital; zb 16:00 Follow up: Response: No adverse reaction; Pain is decreased; RASS: Drowsy (-1) zb 16:09 CANCELLED (Physician Discretion): Heparin (DVT/PE- Bolus per protocol) - HEParin 80 jd3 units/kg IVP once; Max 8,000 units 16:09 CANCELLED (Physician Discretion): Heparin (DVT/PE Drip) 18 units/kg/hr - (HEParin 72997 jd3 units, D5W 500 ml) IV at calculated rate Per protocol; Max initial rate 1800 units/hr 16:25 Drug: PlaVIX 300 mg Route: PO; zb Outcome: 17:26 Decision to Hospitalize by Provider. kdr 07/25 17:29 Patient left the ED. hb Signatures: Dispatcher [employer] Cady Peacock RN Justin Yu MD MD kdr Martinez, Eric em1 Paz Lutz RN RN hb Davies, Jonathon, RN RN jd3 Silke Carmona RN RN zb Roge Quinteros RN jd3 Corrections: (The following items were deleted from the chart) 07/24 16:09 15:36 Heparin (DVT/PE- Bolus per protocol) - HEParin 80 units/kg IVP in right jd3 antecubital zb 16: 15:36 Heparin (DVT/PE Drip) 18 units/kg/hr - (HEParin 60245 units, D5W 500 ml) IV at jd3 calculated rate in right antecubital zb
--- NOTE | 2020-07-24 17:26 | EDPHYS ---
Physician Documentation [facility] Name: Linda Menezes Age: 70 yrs Sex: Female : 1950 Arrival Date: 07/24/2020 Time: 14:48 Bed 14 Private MD: ED Physician Justin Singh HPI: 07/24 17:18 This 70 yrs old Female presents to ER via EMS with complaints of chest pain. kdr 17:18 The patient or guardian reports chest pain that is located primarily in the substernal kdr area, anterior chest wall, left. Onset: suddenly, at 10:00. The pain radiates to the left shoulder. Associated signs and symptoms: Pertinent positives: lightheadedness, nausea, palpitations, vomiting. The chest pain is described as aching, crushing, a pressure, sharp. Duration: The patient or guardian reports a single episode, that is still ongoing, and unchanged. Modifying factors: The symptoms are alleviated by nothing. the symptoms are aggravated by activity, exertion, movement. Severity of pain: At its worst the pain was severe incapacitating in the emergency department the pain. The patient has experienced similar episodes in the past, a few times. The patient has been recently seen by a physician: Dr. robison group art supervisor. Historical: - Allergies: 15:00 NKA; jd3 - PMHx: 15:00 chronic back pain; neuropathy; restless leg syndrome; intussusception intestine; jd3 Diabetes - NIDDM; Hypertension; Myocardial infarction; - PSHx: 15:00 Hysterectomy; jd3 - Immunization history:: Adult Immunizations up to date. - Social history:: Smoking status: Patient denies any tobacco usage or history of. ROS: 17:18 Constitutional: Negative for fever, chills, and weight loss, Eyes: Negative for injury, kdr pain, redness, and discharge, ENT: Negative for injury, pain, and discharge, Neck: Negative for injury, pain, and swelling, Respiratory: Negative for shortness of breath, cough, wheezing, and pleuritic chest pain, Back: Negative for injury and pain, : Negative for injury, bleeding, discharge, and swelling, MS/Extremity: Negative for injury and deformity, Skin: Negative for injury, rash, and discoloration, Neuro: Negative for headache, weakness, numbness, tingling, and seizure activity. Psych: Negative for depression, anxiety, suicide ideation, homicidal ideation, and hallucinations, Allergy/Immunology: Negative for hives, rash, and allergies, Endocrine: Negative for neck swelling, polydipsia, polyuria, polyphagia, and marked weight changes, Hematologic/Lymphatic: Negative for swollen nodes, abnormal bleeding, and unusual bruising. 17:18 Cardiovascular: Positive for chest pain, Negative for edema, orthopnea, palpitations, paroxysmal nocturnal dyspnea, acute changes. Exam: 17:18 Constitutional: This is a well developed, well nourished patient who is awake, alert, kdr and in no acute distress. Head/Face: Normocephalic, atraumatic. Eyes: Pupils equal round and reactive to light, extra-ocular motions intact. Lids and lashes normal. Conjunctiva and sclera are non-icteric and not injected. Cornea within normal limits. Periorbital areas with no swelling, redness, or edema. Neck: Trachea midline, no thyromegaly or masses palpated, and no cervical lymphadenopathy. Supple, full range of motion without nuchal rigidity, or vertebral point tenderness. No Meningismus. Chest/axilla: Normal chest wall appearance and motion. Nontender with no deformity. No lesions are appreciated. Cardiovascular: Regular rate and rhythm with a normal S1 and S2. No gallops, murmurs, or rubs. Normal PMI, no JVD. No pulse deficits. Respiratory: Lungs have equal breath sounds bilaterally, clear to auscultation and percussion. No rales, rhonchi or wheezes noted. No increased work of breathing, no retractions or nasal flaring. Abdomen/GI: Soft, non-tender, with normal bowel sounds. No distension or tympany. No guarding or rebound. No evidence of tenderness throughout. Back: No spinal tenderness. No costovertebral tenderness. Full range of motion. Skin: Warm, dry with normal turgor. Normal color with no rashes, no lesions, and no evidence of cellulitis. Vital Signs: 15:01 BP 122 / 84; Pulse 88; Resp 20 S; Temp 98.8(TE); Pulse Ox 96% on R/A; Weight 77.11 kg jd3 (R); Height 5 ft. 4 in. (162.56 cm) (R); Pain 7/10; 15:22 Weight 71.58 kg (M); jd3 16:05 BP 123 / 70; Pulse 86; Resp 14 S; Pulse Ox 99% on R/A; jd3 17:00 BP 124 / 71; Pulse 83; Resp 16; Pulse Ox 98% on R/A; zb 18:00 BP 108 / 58; Pulse 83; Resp 14; Pulse Ox 99% on R/A; zb 19:00 BP 107 / 65; Pulse 82; Resp 14; Pulse Ox 98% on R/A; zb 15:22 Body Mass Index 27.09 (71.58 kg, 162.56 cm) jd3 MDM: 17:18 Data reviewed: vital signs, nurses notes, lab test result(s), EKG, radiologic studies. kdr 17:18 Physician consultation: Jonny Lopez MD was called at 14:57, was contacted at 15:00, kdr regarding consult, patient's condition, need to come to ED to see patient, need to evaluate the patient as soon as possible. 17:26 Patient medically screened. kdr 07/24 14:58 Order name: Basic Metabolic Panel; Complete Time: 17:36 kdr 07/24 14:58 Order name: CBC with Diff; Complete Time: 17:36 kdr 07/24 14:58 Order name: LFT's; Complete Time: 17:36 kdr 07/24 14:58 Order name: Magnesium; Complete Time: 17:36 kdr 07/24 14:58 Order name: NT PRO-BNP; Complete Time: 17:36 kdr 07/24 14:58 Order name: PT-INR; Complete Time: 17:36 kdr 07/24 14:58 Order name: Troponin (emerg Dept Use Only); Complete Time: 17:36 kdr 07/24 17:44 Order name: COVID-19 iw 07/24 19:12 Order name: Ptt, Activated zb 07/24 21:09 Order name: SARS-COV-2 RT PCR EDMS 07/24 23:12 Order name: PTT, Activated Partial Thromb EDMS 07/25 01:39 Order name: Glucose, Ancillary Testing EDMS 07/25 01:42 Order name: Troponin I EDMS 07/25 01:42 Order name: Lipid Profile EDMS 07/24 14:58 Order name: XRAY Chest (1 view); Complete Time: 17:36 kdr 07/25 01:42 Order name: PTT, Activated Partial Thromb EDMS 07/25 05:08 Order name: CBC with Automated Diff EDMS 07/25 05:24 Order name: Basic Metabolic Panel EDMS 07/25 05:40 Order name: PTT, Activated Partial Thromb EDMS 07/25 05:51 Order name: Troponin I EDMS 07/25 08:23 Order name: Glucose, Ancillary Testing EDMS 07/25 10:55 Order name: PTT, Activated Partial Thromb EDMS 07/25 11:49 Order name: Glucose, Ancillary Testing EDMS 07/25 14:56 Order name: PTT, Activated Partial Thromb EDMS 07/25 16:54 Order name: Glucose, Ancillary Testing EDMS 07/24 14:58 Order name: EKG; Complete Time: 15:02 kdr 07/24 14:58 Order name: Cardiac monitoring; Complete Time: 15:03 kdr 07/24 14:58 Order name: EKG - Nurse/Tech; Complete Time: 15:02 kdr 07/24 14:58 Order name: IV Saline Lock; Complete Time: 15:13 kdr 07/24 14:58 Order name: Labs collected and sent; Complete Time: 15:13 kdr 07/24 14:58 Order name: O2 Per Protocol; Complete Time: 15:03 kdr 07/24 14:58 Order name: O2 Sat Monitoring; Complete Time: 15:03 kdr 07/24 15:47 Order name: EKG; Complete Time: 15:47 em1 07/24 15:47 Order name: EKG - Nurse/Tech; Complete Time: 16:05 em1 Administered Medications: 15:14 Not Given (recieved from EMS): Aspirin Chewable Tablet 324 mg PO once; 81 mg tablets x 4jd3 15:20 Drug: Zofran (Ondansetron) 4 mg Route: IVP; Site: right antecubital; zb 16:00 Follow up: Response: No adverse reaction; Nausea is decreased zb 15:25 Drug: Nitroglycerin 0.4 mg Route: Sublingual; zb 15:30 Follow up: Response: No adverse reaction; Pain is decreased; Blood pressure is unchangedzb 15:36 Drug: Heparin (KS Drip) 12 units/kg/hr - (HEParin 05252 units, D5W 500 ml) zb {Co-Signature: jd3 (Roge Quinteros RN).} Route: IV; Rate: calculated rate; Site: right antecubital; 16:00 Follow up: Response: No adverse reaction zb 15:36 Drug: Heparin (KS-Bolus No thrombolytic) - HEParin 60 units/kg {Co-Signature: jd3 zbinh (Roge Quinteros RN).} Route: IVP; Site: right antecubital; 15:43 Drug: morphine 4 mg Route: IVP; Site: right antecubital; zb 16:00 Follow up: Response: No adverse reaction; Pain is decreased; RASS: Drowsy (-1) zb 16:09 CANCELLED (Physician Discretion): Heparin (DVT/PE- Bolus per protocol) - HEParin 80 jd3 units/kg IVP once; Max 8,000 units 16:09 CANCELLED (Physician Discretion): Heparin (DVT/PE Drip) 18 units/kg/hr - (HEParin 92751 jd3 units, D5W 500 ml) IV at calculated rate Per protocol; Max initial rate 1800 units/hr 16:25 Drug: PlaVIX 300 mg Route: PO; zb Disposition: 07/24/20 17:26 Hospitalization ordered by Scott Rodríguez for Inpatient Admission. Preliminary diagnosis is Non-ST elevation (NSTEMI) myocardial infarction. - Bed requested for Telemetry/MedSurg (Inpatient). - Status is Inpatient Admission. hb - Condition is Fair. - Problem is an acute exacerbation. - Symptoms have improved. Signatures: Dispatcher [employer] EDMS Verena Buck RN RN mw Rittger, Kevin, MD MD kdr Williams, Irene, RN RN iw Martinez, Eric em1 Paz Lutz RN RN Roge Quinteros RN RN jd3 Brown, Zipporah, RN RN zb Roge Quinteros RN jd3 Corrections: (The following items were deleted from the chart) 16:09 15:06 Heparin (DVT/PE- Bolus per protocol) - HEParin 80 units/kg IVP once; Max 8,000 jd3 units ordered. kdr 16: 15:06 Heparin (DVT/PE Drip) 18 units/kg/hr - (HEParin 48721 units, D5W 500 ml) IV at jd3 calculated rate Per protocol; Max initial rate 1800 units/hr ordered. kdr 16:09 15:40 Heparin (DVT/PE- Bolus per protocol) - HEParin 80 units/kg IVP once; Max 8,000 jd3 units given. zb 16:09 15:41 Heparin (DVT/PE Drip) 18 units/kg/hr - (HEParin 95037 units, D5W 500 ml) IV at jd3 calculated rate Per protocol; Max initial rate 1800 units/hr given. zb 16:09 16:09 Heparin (DVT/PE- Bolus per protocol) - HEParin 80 units/kg IVP once; Max 8,000 jd3 units ordered. jd3 16:09 16:09 Heparin (DVT/PE Drip) 18 units/kg/hr - (HEParin 39066 units, D5W 500 ml) IV at jd3 calculated rate Per protocol; Max initial rate 1800 units/hr ordered. jd3 17:57 17:26 Hospitalization Ordered by Scott Rodríguez for Inpatient Admission. Preliminary iw diagnosis is Non-ST elevation (NSTEMI) myocardial infarction. Bed requested for Intensive Care Unit. Status is Inpatient Admission. Condition is Fair. Problem is an acute exacerbation. Symptoms have improved. kdr 20:13 17:57 07/24/2020 17:26 Hospitalization Ordered by Scott Rodríguez for Inpatient mw Admission. Preliminary diagnosis is Non-ST elevation (NSTEMI) myocardial infarction. Bed requested for [facility] ER HOLD. Status is Inpatient Admission. Condition is Fair. Problem is an acute exacerbation. Symptoms have improved. iw 21:16 20:13 07/24/2020 17:26 Hospitalization Ordered by Scott Rodríguez for Inpatient mw Admission. Preliminary diagnosis is Non-ST elevation (NSTEMI) myocardial infarction. Bed requested for Telemetry/MedSurg (Inpatient). Status is Inpatient Admission. Condition is Fair. Problem is an acute exacerbation. Symptoms have improved. 07/25 15:16 07/24 21:16 07/24/2020 17:26 Hospitalization Ordered by Scott Rodríguez for Inpatient mw Admission. Preliminary diagnosis is Non-ST elevation (NSTEMI) myocardial infarction. Bed requested for [facility] ER HOLD. Status is Inpatient Admission. Condition is Fair. Problem is an acute exacerbation. Symptoms have improved. 07/25 17:29 15:16 07/24/2020 17:26 Hospitalization Ordered by Scott Rodríguez for Inpatient hb Admission. Preliminary diagnosis is Non-ST elevation (NSTEMI) myocardial infarction. Bed requested for Telemetry/MedSurg (Inpatient). Status is Inpatient Admission. Condition is Fair. Problem is an acute exacerbation. Symptoms have improved. mw
[2020-07-25] MEDS: METOPROLOL TAR 25 MG TAB PO SCH ×3 (00:06→21:00)
[2020-07-25] MEDS ORDERED: HEPARIN/D5W 25,000 UNIT/500 ML BAG IV PRN (00:06)
[2020-07-25] MEDS: INSULIN -REGULAR HUMAN 50 UNIT/0.5 ML ML SQ SCH ×5 (00:06→22:19)
[2020-07-25] MEDS ORDERED: NITROGLYCERIN 0.4 MG/TAB SL PRN (00:06)
[2020-07-25] MEDS: MORPHINE 2 MG/ML SYR IV PRN ×3 (00:42→21:42)
[2020-07-25] MEDS ORDERED: MORPHINE 4 MG/ML SYR ONE (00:46)
[2020-07-25] MEDS ORDERED: INSULIN -REGULAR HUMAN 50 UNIT/0.5 ML ML ONE ×3 (01:45→17:26)
--- NOTE | 2020-07-25 02:34 | P.HP ---
Certification for Inpatient Patient admitted to: Inpatient With expected LOS: >2 Midnights Patient will require the following post-hospital care: None Practitioner: I am a practitioner with admitting privileges, knowledge of patient current condition, hospital course, and medical plan of care. Services: Services provided to patient in accordance with Admission requirements found in Title 42 Section 412.3 of the Code of Federal Regulations <Abner Smith - Last Filed: 07/25/20 02:28> Patient History Date of Service: 07/25/20 Reason for admission: NSTEMI, CHF History of Present Illness: This is a 70-year-old female that presented to the emergency room today after having sudden onset of chest tightness with radiation that started at approximately 10 o'clock this morning. Patient stated that she was just released this past Tuesday from a rehab facility after having prolonged complications secondary to covid pneumonia. Patient was admitted to this facility about a month ago initially for chest pain resulting in elevated troponin. Patient had a cardiac catheterization at that time and did not show to have any coronary atherosclerosis and no stent needing to be placed. While in this facility patient had started to have symptoms consistent with COVID and was tested positive. Worsened at that time and was then sent to Rehab after being stabilized. Patient stated that she had been doing well until this morning. Patient was worked up in the emergency room today and found to have a white cell count of 8.8, hemoglobin of 8.8, hematocrit 28.6, platelet at 509. Patient had a sodium of 136, potassium 4.2, chloride of 103, bicarb of 25, BUN of 27, creatinine of 1.42, glucose of 313. Patient did have elevation in her troponin of 2.97 with an elevated BNP of 67,757. Chest x-ray consistent with pulmonary edema. Patient also had slight elevation in anterolateral leads on her EKG. Cardiology was consulted at that time and was evaluated in the emergency room. Patient was started on heparin therapy and will be monitored in a telemetry unit for now. Cardiology recommended seeing how she would do over night as she just had a recent cardiac catheterization with no atherosclerotic coronary artery changes. Medicine consulted at that time for admission Home medications list reviewed: Yes - Past Medical/Surgical History Has patient received pneumonia vaccine in the past: Yes Diabetic: Yes -: Diabetes mellitus type 2, non insulin dependent -: Hypertension -: Hypothyroidism -: Gout -: GERD -: Restless leg syndrome -: Neuropathy -: RESTLESS LEGS SYNDROME -: bronchitis (november 20, 2014) -: right eye lid weakness -: Hysterectomy, 1977 -: intussusception of intestines -: compression disc fracture -: Carpal tunnel Sx, 1983 -: R. elbow Sx, 1999 -: [place] CATARACT SX 2014 -: colonoscopy date unknown, pt advised -: cholecystectomy Psychosocial/ Personal History: The patient is a . She has 2 children. - Family History Father -: Hypertension, Other (see notes) Notes: Parkinson's Mother -: Hypertension, Diabetes, Stroke, Cancer Notes: breast - Social History Smoking Status: Unknown if ever smoked Smoking therapy provided: No Alcohol use: No CD- Drugs: No Caffeine use: Yes Place of Residence: Home <Abner Smith - Last Filed: 07/25/20 02:28> Date of Service: 07/25/20 <kelsey helms - Last Filed: 07/25/20 17:11> Allergies No Known Drug Allergies Allergy (Verified 06/14/18 10:24) Unknown Home Medications: Alendronate Sodium [Fosamax] 1 tab PO SEECOM 05/31/20 Diphenox/Atropine [Lomotil*] 1 tab PO QID PRN 05/31/20 Duloxetine [Cymbalta *] 1 cap PO DAILY 05/31/20 Levothyroxine [Synthroid*] 1 tab PO [id number] 05/31/20 Lovastatin [Altoprev] 1 tab PO DAILY 05/31/20 Metformin HCl [Glucophage*] 1 tab PO BIDWM 05/31/20 Tramadol HCl [Ultram] 1 tab PO Q6H PRN 05/31/20 carvediloL [Carvedilol] 1 tab PO BID* 05/31/20 glipiZIDE [Glucotrol*] 1 tab PO BID 05/31/20 Ensure High Protein 237 ml PO BID 30 Days #60 can 06/19/20 Famotidine [Pepcid] 20 mg PO DAILY 30 Days #30 tablet 06/19/20 Furosemide [Lasix*] 20 mg PO DAILY 30 Days #30 tab 06/19/20 Melatonin [Melatonin*] 3 mg PO BEDTIME 30 Days #30 tablet 06/19/20 Spironolactone [Aldactone*] 25 mg PO DAILY 30 Days #30 tab 06/19/20 Warfarin Sodium [Coumadin] 2 mg PO DAILY 5 PM 30 Days #30 tab 06/19/20 levoFLOXacin [Levaquin*] 500 mg PO DAILY 7 Days #7 tab 06/19/20 predniSONE [Deltasone*] 10 mg PO BID 7 Days #14 tab 06/19/20 Review of Systems General: Unremarkable Eyes: Unremarkable ENT: Unremarkable Respiratory: Shortness of Breath Cardiovascular: Chest Pain Gastrointestinal: Unremarkable Genitourinary: Unremarkable Musculoskeletal: Unremarkable Integumentary: Unremarkable Neurological: Unremarkable Lymphatics: Unremarkable <Abner Smith - Last Filed: 07/25/20 02:28> Physical Examination - Vital Signs Temperature: 98.8 F Blood Pressure: 98/58 Pulse: 79 Respirations: 18 Pulse Ox (%): 95 - Physical Exam General: Alert, In no apparent distress, Oriented x3, Cooperative HEENT: PERRLA, Mucous membr. moist/pink, EOMI Neck: Supple, 2+ carotid pulse no bruit, JVD not distended, No Thyromegaly Respiratory: Clear to auscultation bilaterally, Normal air movement Cardiovascular: Normal pulses, Regular rate/rhythm, Normal S1 S2, No gallops, No rubs, No murmurs, Edema (1+ bilaterally lower extremities) Capillary refill: <2 Seconds Gastrointestinal: Normal bowel sounds, Soft and benign, Non-distended, No ascites, No tenderness, No masses, No rebound, No guarding Musculoskeletal: No clubbing, No swelling, No contractures, No erythema, No tenderness, No warmth Integumentary: No rashes, No breakdown, No significant lesion, No tendernes s/swelling, No erythema, No warmth, No cyanosis Neurological: Normal speech, Normal strength at 5/5 x4 extr, Normal tone, Sensation intact, Cranial nerves 3-12 intact, Normal affect Lymphatics: No axilla or inguinal lymphadenopathy - Studies Laboratory Data (last 24 hrs) 07/24/20 15:10: PT 18.4 H, INR 1.57 07/24/20 15:10: WBC 8.8, Hgb 8.8 L, Hct 28.6 L, Plt Count 509 H 07/24/20 15:10: Sodium 136, Potassium 4.2, BUN 27 H, Creatinine 1.42 H, Glucose 313 H, Magnesium 1.7 L, Total Bilirubin 0.6, AST 12 L, ALT 11 L, Alkaline Phosphatase 64 <Abner Smith - Last Filed: 07/25/20 02:28> Assessment and Plan - Problems (Diagnosis) (1) CHF (congestive heart failure) Current Visit: No Status: Acute Qualifiers: Heart failure type: combined systolic and diastolic Heart failure chronicity: acute Qualified Code(s): I50.41 - 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) heart failure (2) Chest pain Onset Date: 11/21/14 Current Visit: No Status: Acute Qualifiers: Chest pain type: unspecified Qualified Code(s): R07.9 - Chest pain, unspecified (3) NSTEMI (non-ST elevated myocardial infarction) Current Visit: No Status: Acute (4) Diabetes mellitus Onset Date: 12/10/14 Current Visit: No Status: Chronic Qualifiers: Diabetes mellitus type: type 2 Diabetes mellitus termination clerk insulin use: without chcf use Diabetes mellitus complication status: without complication Qualified Code(s): E11.9 - Type 2 diabetes mellitus without complications (5) Hyperlipidemia Current Visit: No Status: Chronic Qualifiers: Hyperlipidemia type: unspecified Qualified Code(s): E78.5 - Hyperlipidemia, unspecified (6) Hypertension Onset Date: 06/12/18 Current Visit: No Status: Chronic Qualifiers: Hypertension type: essential hypertension Qualified Code(s): I10 - Essential (primary) hypertension - Plan 1. Patient will be admitted to telemetry floor for continuation and monitoring of chest pain and NSTEMI 2. Cardiology has been consulted and will continue to monitor patient as well to determine if patient needs another angiogram 3. Patient will continue on heparin therapy for the time being 4. Will monitor blood pressure, vital signs and glucose and just as needed 5. Troponins will be trended 6. Patient will be diuresed secondary to her heart failure and pulmonary edema Discharge Plan: Home Plan to discharge in: 48 Hours - Advance Directives Does patient have a Living Will: No Does patient have a Durable POA for Healthcare: No - Code Status/Comfort Care Code Status Assessed: Yes Critical Care: No Time Spent Managing Pts Care (In Minutes): 80 <Abner Smith - Last Filed: 07/25/20 02:28> Physician Review: Patient Assessed, Agree with Above Assessment and Plan Physician Review Additional Text: Elevated troponin. Patient recently had a cardiac catheterization and noted to have severe LV dysfunction. No significant coronary artery occlusion. Takotsubo cardiomyopathy suspected at that time. Patient tested positive for COVID 19. Plan: Elevated troponin. Heparin drip Beta-dima. Obtain echocardiogram Cardiology consult. <kelsey helms - Last Filed: 07/25/20 17:11>
[2020-07-25 05:04] LABS: Absolute Lymphocytes (CBC) 1.9 K/uL (0.7-4.9); Basophils % 1.5 % (0-1.3); Hematocrit 25.3 % (36.0-45.0); Lymphocytes % 22.1 % (15.3-44.8); MPV 8.8 fL (7.6-11.3); RBC Red Blood Cell Count 3.08 M/uL (3.86-4.86)
[2020-07-25 05:23] LABS: Potassium 4.1 mmol/L (3.5-5.1)
[2020-07-25] MEDS ORDERED: HEPARIN 5000 UNIT/ML 1 ML VIAL IV SCH (06:00)
[2020-07-25] MEDS ORDERED: HEPARIN 5000 UNIT/ML 1 ML VIAL ONE (06:08)
--- NOTE | 2020-07-25 06:19 | EKG ---
Test Date: 2020-07-24 Test Time: 15:54:20 [employer] Sales Manager: SABINE MEASUREMENT RESULTS: Intervals: Rate: 86 [place]: 160 QRSD: 92 QT: 374 QTc: 447 [place]: P: 39 [place]: 160 QRS: 108 T: 35 INTERPRETIVE STATEMENTS: Normal sinus rhythm Possible Left atrial enlargement Rightward axis Low voltage QRS Cannot rule out Anterior infarct, age undetermined Abnormal ECG Compared to ECG 07/24/2020 14:54:54 Right-axis deviation now present Myocardial infarct finding still present Electronically Signed On 07-25-20 06:18:02 NUT SORTER by Jonny Lopez
--- NOTE | 2020-07-25 06:19 | EKG ---
Test Date: 2020-07-24 Test Time: 14:54:54 Outdoor Studies Director: SABINE MEASUREMENT RESULTS: Intervals: Rate: 92 [place]: 166 QRSD: 86 QT: 350 QTc: 432 [place]: P: 37 [place]: 166 QRS: 47 T: 53 INTERPRETIVE STATEMENTS: Normal sinus rhythm Possible Left atrial enlargement Low voltage QRS Anterior infarct, possibly acute Lateral injury pattern ACUTE [place] Abnormal ECG Compared to ECG 07/24/2020 14:53:56 No significant changes Electronically Signed On 07-25-20 06:18:04 SALES LEDGER CLERK by Jonny Lopez
--- NOTE | 2020-07-25 06:19 | EKG ---
Test Date: 2020-07-24 Test Time: 14:53:56 Welder Plasma Arc: SABINE MEASUREMENT RESULTS: Intervals: Rate: 90 AL: 152 QRSD: 88 QT: 350 QTc: 428 [place]: P: 30 AL: 152 QRS: 63 T: 60 INTERPRETIVE STATEMENTS: Normal sinus rhythm Possible Left atrial enlargement Low voltage QRS Cannot rule out Anterior infarct, age undetermined Lateral injury pattern ACUTE [place] Abnormal ECG Compared to ECG 06/14/2020 18:12:20 Atrial fibrillation no longer present ST (T wave) deviation no longer present Myocardial infarct finding still present Electronically Signed On 07-25-20 06:18:05 TRACK REPAIR LABORER by Jonny Lopez
[2020-07-25] MEDS ORDERED: ONDANSETRON 4 MG/2 ML VIAL ONE (08:01)
[2020-07-25] MEDS ORDERED: FUROSEMIDE 20 MG/ 2ML VIAL ONE ×2 (08:48→17:35)
[2020-07-25] MEDS ORDERED: ASPIRIN EC 81 MG TAB PO ONE (08:48)
[2020-07-25] MEDS ORDERED: METOPROLOL TAR 25 MG TAB ONE (08:48)
[2020-07-25] MEDS: FUROSEMIDE 20 MG/ 2ML VIAL IV SCH ×2 (09:00→17:21)
[2020-07-25] MEDS ORDERED: ASPIRIN EC 81 MG TAB PO SCH (09:00)
[2020-07-25] MEDS ORDERED: MORPHINE 2 MG/ML SYR ONE (09:26)
[2020-07-25] MEDS ORDERED: HEPARIN/D5W 25,000 UNIT/500 ML BAG IV ONE (14:15)
--- NOTE | 2020-07-25 14:21 | ECHO ---
HEIGHT: 5 ft 4 in WEIGHT: 170 lb 0 oz DATE OF STUDY: 07/25/[address]: kelsey helms 2-DIMENSIONAL: YES M.MODE: YES DOPPLER: YES COLOR FLOW: YES TDS: PORTABLE: DEFINITY: BUBBLE STUDY: DIAGNOSIS: NON ST ELEVATION MYOCARDIAL INFARCTION CARDIAC HISTORY: CATHERIZATION: SURGERY: PROSTHETIC VALVE: PACEMAKER: MEASUREMENTS (cm) DIASTOLIC (NORMALS) SYSTOLIC (NORMALS) IVSd 1.4 (0.6-1.2) LA Diam 4.5 (1.9-4.0) LVEF 40% LVIDd 4.9 (3.5-5.7) LVIDs 3.9 (2.0-3.5) %FS 19% LVPWd 1.6 (0.6-1.2) Ao Diam 2.9 (2.0-3.7) 2 DIMENSIONAL ASSESSMENT: RIGHT ATRIUM: NORMAL LEFT ATRIUM: LEFT ATRIAL ENLARGEMENT RIGHT VENTRICLE: NORMAL LEFT VENTRICLE: LEFT VENTRICULAR HYPERTROPHY TRICUSPID VALVE: NORMAL MITRAL VALVE: NORMAL PULMONIC VALVE: NORMAL AORTIC VALVE: NORMAL PERICARDIAL EFFUSION: NONE AORTIC ROOT: NORMAL LEFT VENTRICULAR WALL MOTION: ANTEROAPICAL AKINESIS DOPPLER/COLOR FLOW: MILD TRICUSPID REGURGITATION. RIGHT VENTRICULAR SYSTOLIC PRESSURE 47mmHg. COMMENTS: ANTEROAPICAL AKINESIS. EJECTION FRACTION 35-40%. MILD TRICUSPID REGURGITATION. MODERATE PULMONARY HYPERTENSION. LEFT ATRIAL ENLARGEMENT. LEFT VENTRICULAR HYPERTENSION. CANNOT RULE OUT APICAL [place]. TECHNOLOGIST: SEBASTIEN MORRIS
[2020-07-25] MEDS ORDERED: HEPARIN 10,000 UNIT/10 ML VIAL IV PRN (16:00)
--- NOTE | 2020-07-25 17:17 | P.PN ---
Subjective Date of Service: 07/25/20 Chief Complaint: NSTEMI, CHF Patient states she is feeling better. She denies any chest pain. She is concerned she tested negative for COVID twice before the COVID test yesterday in the ED which is now positive. Physical Examination - Vital Signs Temperature: 97.1 F Blood Pressure: 99/57 Pulse: 77 Respirations: 14 Pulse Ox (%): 99 - Physical Exam General: Alert, In no apparent distress Neck: Supple, JVD not distended Respiratory: Crackles/rales (Mild bibasilar rales) Cardiovascular: No edema, Regular rate/rhythm Gastrointestinal: Soft and benign, Non-distended Musculoskeletal: No swelling Integumentary: No rashes Neurological: Other (No focal deficit.) Assessment And Plan - Current Problems (Diagnosis) (1) Mural thrombus of cardiac apex Current Visit: Yes Status: Acute (2) Chronic systolic heart failure Current Visit: Yes Status: Acute (3) COVID-19 virus infection Current Visit: Yes Status: Acute (4) NSTEMI (non-ST elevated myocardial infarction) Current Visit: No Status: Acute (5) Diabetes mellitus Onset Date: 12/10/14 Current Visit: No Status: Chronic Qualifiers: Diabetes mellitus type: type 2 Diabetes mellitus 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 Recent cardiac catheterization shows no significant coronary artery disease. Her troponin was more elevated at that time. Patient seen by cardiology-Dr. Lopez. Echocardiogram shows improved EF. Per Dr. Lopez, cardiac thrombosis not seen but not excluded. Continue home dose Coumadin. Bridge with Lovenox. Discontinue heparin drip. Continue IV Lasix for 1 more day. Discontinue aspirin. Start Entresto per cardiology recommendation.
[2020-07-25] MEDS ORDERED: ENOXAPARIN 80 MG/0.8 ML SQ ONE (18:00)
[2020-07-25] MEDS: ACETAMINOPHEN 500 MG TAB PO PRN (21:44)
[2020-07-25] MEDS: WARFARIN SODIUM 2 MG TAB PO SCH (22:30)
[2020-07-26 06:50] LABS: Protime INR 1.12
[2020-07-26] MEDS: INSULIN -REGULAR HUMAN 50 UNIT/0.5 ML ML SQ SCH ×4 (07:30→22:47)
[2020-07-26] MEDS: FUROSEMIDE 20 MG/ 2ML VIAL IV SCH ×2 (09:13→16:24)
[2020-07-26] MEDS: ACETAMINOPHEN 500 MG TAB PO PRN (09:13)
[2020-07-26] MEDS: METOPROLOL TAR 25 MG TAB PO SCH ×2 (09:14→22:46)
[2020-07-26] MEDS: ENOXAPARIN 80 MG/0.8 ML SQ SCH (10:16)
[2020-07-26] MEDS ORDERED: BISACODYL 10 MG RECTAL SUPP PR ONE (11:52)
--- NOTE | 2020-07-26 12:02 | P.PN ---
Subjective Date of Service: 07/26/20 Chief Complaint: NSTEMI, CHF Patient recorded fever today. She is complaining of constipation. She denies any chest pain. Patient had a fever last night. She also has leukocytosis. Physical Examination - Vital Signs Temperature: 98.3 F Blood Pressure: 113/56 Pulse: 83 Respirations: 18 Pulse Ox (%): 96 - Physical Exam General: Alert, In no apparent distress, Oriented x3 Neck: Supple, JVD not distended Cardiovascular: No edema, Regular rate/rhythm, Normal S1 S2 Gastrointestinal: Soft and benign, Non-distended Musculoskeletal: No swelling Integumentary: No rashes Neurological: Normal speech, Normal strength at 5/5 x4 extr, Cranial nerves 3-12 intact Assessment And Plan - Current Problems (Diagnosis) (1) Mural thrombus of cardiac apex Current Visit: Yes Status: Acute (2) Chronic systolic heart failure Current Visit: Yes Status: Acute (3) COVID-19 virus infection Current Visit: Yes Status: Acute (4) NSTEMI (non-ST elevated myocardial infarction) Current Visit: No Status: Acute (5) Diabetes mellitus Onset Date: 12/10/14 Current Visit: No Status: Chronic Qualifiers: Diabetes mellitus type: type 2 Diabetes mellitus terminal 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 Recent cardiac catheterization shows no significant coronary artery disease. Her troponin was more elevated at that time. Patient seen by cardiology-Dr. Lopez. He recommend no cardiac intervention. Echocardiogram shows improved EF. Per Dr. Lopez, cardiac thrombosis not seen but not excluded. Continue home dose Coumadin. Bridge with Lovenox. Resume oral Lasix. Start Entresto per cardiology recommendation as long as her BP tolerat it. Dulcolax suppository for constipation. Sepsis may be related to COVID 19 infection Obtain blood cultures given sepsis. Start antibiotics and follow cultures.
--- NOTE | 2020-07-26 16:20 | CON ---
Date of Consultation: 07/24/2020 Ms. Menezes was admitted on 07/24/2020. I saw the patient on 07/24/2020. History Of Present Illness: Ms. Menezes we just in the hospital in May following acute [facility] at was thought to be secondary to takotsubo syndrome. Heart catheterization showed perfectly normal coronaries, but she had anteroapical akinesis with a possible LV thrombus and was placed on Coumadin. She was noted at that time to have an ejection fraction about 20% to 25%. She was supposed to go h ome and being treated for congestive heart failure including Lasix and Aldactone as well as carvedilo l and Coumadin. She was also taking glipizide and metformin for diabetes, Synthroid for hypothyroidi sm and Cymbalta for depression. She came back with chest pain, elevated troponin, what appeared to b e a recent myocardial infarction in the anterolateral wall. She had some shortness of breath, but no diaphoresis. No nausea, vomiting. She denied any PND, orthopnea, pedal edema, palpitation, or sync ope. She denied any fever or chills, but she did test positive for COVID. Chest x-ray shows suspici ous pneumonia. Allergies: NONE. Review of Systems: Negative. Social History: Negative. Family History: Noncontributory. Medications: Listed earlier. Physical Examination: Vital Signs: Blood pressure was 95/47. She was in sinus rhythm, afebrile. HEENT: Negative. Neck: Supple without any bruit, lymphadenopathy, JVD, or thyromegaly. Chest: Reveals some rales, both bases. Cardiac: Revealed a regular rhythm and rate. No murmurs, gallops, or rubs. Abdomen: Benign. Extremities: Revealed no clubbing, cyanosis. She had trace edema. Neurological: She was nonfocal. Pulses were present distally bilaterally. Skin: Dry and intact. Diagnostic Data: Chest x-ray suspicious for COVID pneumonia. Creatinine 1.44, hemoglobin is 7.8, gl ucose was 210. Troponin was 2.97. BNP is . EKG was mentioned earlier. Impression And Plan: 1.Zcdar-fi-hhuuuif systolic congestive heart failure causing her pain. She has normal coronaries wi th an ejection fraction of 20% in May 2020. There is no way she developed any new coronary adolfo ry disease in 6 weeks. I would continue her Lasix, continue her carvedilol, continue her Aldactone. I think we should consider increasing the dose of Coreg or put her on Entresto if her blood pressure tolerated. She had an LV thrombus and was placed on Coumadin and she needs to continue on the Couma din. Another echocardiogram is pending. No need to repeat another heart catheterization now. 2.Renal insufficiency. 3.Elevated BNP and troponin secondary to congestive heart failure and renal failure. 4.COVID pneumonia. 5.Anemia, which may be contributing to the elevated troponin. 6.Depression. 7.Diabetes, well controlled. 8.Hypertension, well controlled. 9.Dyslipidemia, well controlled. 10.Hypothyroidism. ORESTES/MELISSA Voice ID: [id number] Report ID: [id number]
[2020-07-26] MEDS: WARFARIN SODIUM 2 MG TAB PO SCH (16:26)
[2020-07-26] MEDS: VANCOMYCIN/NS 1 gm 1 GM/250 ML BAG IVPB SCH (18:00)
[2020-07-26 18:17] LABS: Lymphocytes % 21.2 % (15.3-44.8); MPV 8.8 fL (7.6-11.3); RBC Red Blood Cell Count 3.44 M/uL (3.86-4.86)
[2020-07-26] MEDS ORDERED: VANCOMYCIN 1 GM/VIAL ONE (18:35)
[2020-07-26] MEDS ORDERED: NA CHLORIDE 0.9% 250 ML ONE (18:36)
--- NOTE | 2020-07-26 18:44 | PN ---
Date of Progress Note: 07/25/2020 Ms. Menezes has a rather complicated history. She came in with takotsubo syndrome in May of 2020, normal coronaries, low ejection fraction, LV thrombus. She came back yesterday with chest disc omfort, shortness of breath, elevated creatinine, troponin, BNP. She has COVID positive pneumonia. Hemoglobin was 7.8. We are considering increasing her Coreg dose and may be starting Entresto down t he road. The patient is on Coumadin for her LV thrombus and we need to continue that. Her echocardi ogram showed improved ejection fraction for about 40% with still an LV thrombus at the apex. We shou ld continue the Coumadin for probably at least another 3 months. She is on heparin now, Coreg, Lasix , and Aldactone. Her troponin has increased. Her pericardial effusion that was present in May of 2020 by echocardiogram has disappeared. Ms. Menezes is feeling much better today. She has diu resed well. She is not coughing. She is not having fever or chills. She is on steroids and antibio tics, and I think she can go home in the next day or 2, and we will see her in the office in the next 2 weeks. ORESTES/MELISSA Voice ID: [id number] Report ID: [id number]
[2020-07-26] MEDS: CEFEPIME/SWI 1gm 10 ML IV SCH (21:00)
[2020-07-26] MEDS ORDERED: CEFEPIME 1 GM/VIAL IV SCH (21:00)
[2020-07-26] MEDS ORDERED: CEFEPIME/SWI 1gm 10 ML ONE (23:13)
[2020-07-27] MEDS: MORPHINE 2 MG/ML SYR IV PRN ×2 (00:55→08:24)
[2020-07-27 06:54] LABS: Protime INR 1.03
[2020-07-27] MEDS: METOPROLOL TAR 25 MG TAB PO SCH ×2 (08:22→22:02)
[2020-07-27] MEDS: ENOXAPARIN 80 MG/0.8 ML SQ SCH (08:22)
[2020-07-27] MEDS: FUROSEMIDE 20 MG/ 2ML VIAL IV SCH ×2 (08:23→16:32)
[2020-07-27] MEDS: INSULIN -REGULAR HUMAN 50 UNIT/0.5 ML ML SQ SCH ×4 (08:23→22:04)
[2020-07-27] MEDS: CEFEPIME/SWI 1gm 10 ML IV SCH ×2 (09:37→22:15)
--- NOTE | 2020-07-27 13:41 | P.PN ---
Subjective Date of Service: 07/27/20 Chief Complaint: NSTEMI, CHF Patient has no new complaint today. No fever over the past 24 hrs. She denies any chest pain. She also has no leukocytosis. Physical Examination - Vital Signs Temperature: 97.7 F Blood Pressure: 109/59 Pulse: 74 Respirations: 21 Pulse Ox (%): 93 - Physical Exam General: Alert, In no apparent distress Neck: Supple, JVD distended Respiratory: Clear to auscultation bilaterally, Normal air movement Cardiovascular: Regular rate/rhythm, Normal S1 S2 Gastrointestinal: Soft and benign, Non-distended Musculoskeletal: No swelling, No tenderness Integumentary: No rashes Neurological: Normal speech, Normal strength at 5/5 x4 extr Assessment And Plan - Current Problems (Diagnosis) (1) Mural thrombus of cardiac apex Current Visit: Yes Status: Acute (2) Chronic systolic heart failure Current Visit: Yes Status: Acute (3) COVID-19 virus infection Current Visit: Yes Status: Acute (4) NSTEMI (non-ST elevated myocardial infarction) Current Visit: No Status: Acute (5) Diabetes mellitus Onset Date: 12/10/14 Current Visit: No Status: Chronic Qualifiers: Diabetes mellitus type: type 2 Diabetes 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 Recent cardiac catheterization shows no significant coronary artery disease. Her troponin was more elevated at that time. Patient seen by cardiology-Dr. Lopez. He recommend no cardiac intervention. Echocardiogram shows improved EF. Per Dr. Lopez, cardiac thrombosis not seen but not excluded. Continue and titrate Coumadin. Bridge with Lovenox. Continue oral Lasix. Start Entresto per cardiology recommendation as long as her BP tolerat it. Dulcolax suppository for constipation. Sepsis may be related to COVID 19 infection Blood cultures: Pending. Continue antibiotics and follow cultures. Physician Review: Patient Assessed, Agree with Above Assessment and Plan Physician Review Additional Text: Elevated troponin. Patient recently had a cardiac catheterization and noted to have severe LV dysfunction. No significant coronary artery occlusion. Takotsubo cardiomyopathy suspected at that time. Patient tested positive for COVID 19. Plan: Elevated troponin. Heparin drip Beta-dima. Obtain echocardiogram Cardiology consult.
[2020-07-27] MEDS: METFORMIN HCL 850 MG TAB PO SCH (16:32)
[2020-07-27] MEDS: ACETAMINOPHEN 500 MG TAB PO PRN (16:35)
[2020-07-27] MEDS ORDERED: WARFARIN SODIUM 2 MG TAB PO SCH (17:00)
[2020-07-27] MEDS: VANCOMYCIN/NS 1 gm 1 GM/250 ML BAG IVPB SCH (17:19)
[2020-07-27] MEDS: glipiZIDE 5 MG TAB PO SCH (22:02)
[2020-07-28] MEDS: MORPHINE 2 MG/ML SYR IV PRN ×2 (00:10→08:02)
[2020-07-28 00:44] VITALS: BMI 32.8
[2020-07-28 04:10] LABS: Protime INR 0.98
[2020-07-28] MEDS: INSULIN -REGULAR HUMAN 50 UNIT/0.5 ML ML SQ SCH ×2 (07:30→11:42)
[2020-07-28 07:57] VITALS: O2SAT 99
[2020-07-28] MEDS: ENOXAPARIN 80 MG/0.8 ML SQ SCH (08:03)
[2020-07-28] MEDS: CEFEPIME/SWI 1gm 10 ML IV SCH (08:03)
[2020-07-28] MEDS: METOPROLOL TAR 25 MG TAB PO SCH (08:04)
[2020-07-28] MEDS: FUROSEMIDE 20 MG/ 2ML VIAL IV SCH (08:04)
[2020-07-28] MEDS: glipiZIDE 5 MG TAB PO SCH (08:04)
[2020-07-28] MEDS: METFORMIN HCL 850 MG TAB PO SCH (08:05)
[2020-07-28] MEDS ORDERED: POLYETHYL GLY 3350 17 GM/DOSE PO PRN (11:07)
[2020-07-28] MEDS ORDERED: SENOSIDES 8.6 MG TAB PO SCH ×2 (11:08→21:00)
[2020-07-28] MEDS ORDERED: POLYETHYL GLY 3350 17 GM/DOSE PO SCH (11:09)
[2020-07-28 13:59] VITALS: BP 126/68; TEMP 99
--- NOTE | 2020-07-28 14:24 | P.DS ---
Admission Date: 07/24/20 Discharge Date: 07/28/20 Disposition: DC HOME/HOME HEALTH CARE Discharge Condition: FAIR Reason for Admission: NSTEMI, CHF - Problems (1) Mural thrombus of cardiac apex Status: Acute (2) Chronic systolic heart failure Status: Acute (3) COVID-19 virus infection Status: Acute (4) NSTEMI (non-ST elevated myocardial infarction) Status: Acute (5) Diabetes mellitus Onset Date: 12/10/14 Status: Chronic Qualifiers: Diabetes mellitus type: type 2 Diabetes mellitus halfway insulin use: without halfway use Diabetes mellitus complication status: without complication Qualified Code(s): E11.9 - Type 2 diabetes mellitus without complications (6) Sepsis Status: Acute Brief History of Present Illness: Patient is a 70-year-old woman with a history Takatsubo cardiomyopathy, cardiac thrombus, recently hospitalized for NSTEMI, had cardiac catheterization which showed no significant coronary artery disease. Her hospitalization was protracted for several weeks due to COVID 19 pneumonia with hypoxia. Patient has clinically improved and was transferred to rehab. Presented emergency department with a complaint of chest tightness. She was discharged from rehab today prior. Her troponin emergency department was elevated to 2.97. Her EKG showed ST T wave abnormalities. Patient was hospitalized for further management of NSTEMI. Hospital Course: Patient admitted to the medical floor and treated with heparin drip followed by full-dose Lovenox. She is on Coumadin for cardiac apical thrombus which was continued during the hospital stay. Cardiology was consulted, patient was evaluated by Dr. Lopez. Echocardiogram was performed which suggested improvement in her LVEF from 30% to 40%. Her home medications for CHF were continued during the hospital stay. Of note, patient tested positive for COVID 19 again. Her chest x-ray demonstrated bilateral pulmonary infiltrates, which could be pulmonary edema or COVID pneumonia. She was also treated with Lasix for CHF exacerbation and appeared to be asymptomatic from the COVID 19. Patient clinical condition has improved. Her INR was subtherapeutic. Patient is discharged with Warfarin and Lovenox bridge. Home health will help with PT and INR checked for Coumadin dose adjustments. Vital Signs/Physical Exam: Temp Pulse Resp BP Pulse Ox 99.0 F 69 17 126/68 98 07/28/20 12:00 07/28/20 12:00 07/28/20 12:00 07/28/20 12:00 07/28/20 12:00 General: Alert, In no apparent distress Neck: JVD not distended Cardiovascular: No edema, Regular rate/rhythm, Normal S1 S2 Gastrointestinal: Soft and benign, Non-distended Musculoskeletal: No swelling Integumentary: No rashes Neurological: Normal strength at 5/5 x4 extr, Cranial nerves 3-12 intact Laboratory Data at Discharge: WBC 9.5 K/uL (4.3-10.9) 07/26/20 18:06 Hgb 8.9 g/dL (12.0-15.0) L 07/26/20 18:06 Hct 28.0 % (36.0-45.0) L 07/26/20 18:06 Plt Count 507 K/uL (152-406) H 07/26/20 18:06 PT 11.6 SECONDS (9.5-12.5) 07/28/20 03:08 INR 0.98 07/28/20 03:08 APTT 38.3 SECONDS (24.3-36.9) H 07/25/20 20:01 Sodium 142 mmol/L (136-145) 07/25/20 04:45 Potassium 4.1 mmol/L (3.5-5.1) 07/25/20 04:45 BUN 28 mg/dL (7-18) H 07/25/20 04:45 Creatinine 1.44 mg/dL (0.55-1.3) H 07/25/20 04:45 Glucose 84 mg/dL (74-106) 07/25/20 04:45 Magnesium 1.7 mg/dL (1.8-2.4) L 07/24/20 15:10 Total Bilirubin 0.6 mg/dL (0.2-1.0) 07/24/20 15:10 AST 12 U/L (15-37) L 07/24/20 15:10 ALT 11 U/L (12-78) L 07/24/20 15:10 Alkaline Phosphatase 64 U/L (45-117) 07/24/20 15:10 Troponin I 3.29 ng/mL (0.0-0.045) H* 07/25/20 04:45 Triglycerides 78 mg/dL (<150) 07/25/20 00:55 Cholesterol 132 mg/dL (<200) 07/25/20 00:55 HDL Cholesterol 58 mg/dL (40-60) 07/25/20 00:55 Cholesterol/HDL Ratio 2.28 07/25/20 00:55 Home Medications: Alendronate Sodium [Fosamax] 1 tab PO SEECOM #30 07/28/20 Diphenox/Atropine [Lomotil*] 1 tab PO QID PRN #30 tab 07/28/20 Duloxetine [Cymbalta *] 1 cap PO DAILY #30 cap 07/28/20 Enoxaparin Sodium [Lovenox 80 MG INJ*] 80 mg SQ Q24H #7 syr 07/28/20 Ensure High Protein 237 ml PO BID 30 Days #60 can 07/28/20 Famotidine [Pepcid] 20 mg PO DAILY 30 Days #30 tablet 07/28/20 Furosemide [Lasix*] 20 mg PO DAILY 30 Days #30 tab 07/28/20 Levothyroxine [Synthroid*] 1 tab PO [id number] #30 tab 07/28/20 Lovastatin [Altoprev] 1 tab PO DAILY #30 07/28/20 Melatonin [Melatonin*] 3 mg PO BEDTIME 30 Days #30 tablet 07/28/20 Metformin HCl [Glucophage*] 1 tab PO BIDWM #60 tab 07/28/20 Nitroglycerin [Nitrostat*] 0.4 mg SL UD PRN #20 tab 07/28/20 Polyethyl Gly 3350 [Glycolax*] 17 gm PO DAILY #30 udbot 07/28/20 Senosides [Senokot*] 17.2 mg PO BID #120 tab 07/28/20 Spironolactone [Aldactone*] 25 mg PO DAILY 30 Days #30 tab 07/28/20 Tramadol HCl [Ultram] 1 tab PO Q6H PRN #30 07/28/20 Warfarin Sodium [Coumadin*] 2 mg PO DAILY 5 PM 30 Days #30 tab 07/28/20 carvediloL [Carvedilol] 6.25 mg PO BID 30 Days #60 tablet 07/28/20 glipiZIDE [Glucotrol*] 1 tab PO BID #60 tab 07/28/20 predniSONE [Deltasone] 20 mg PO BID #21 tab 07/28/20 New Medications: Spironolactone [Aldactone*] 25 mg PO DAILY 30 Days #30 tab Lovastatin [Altoprev] 1 tab PO DAILY #30 carvediloL [Carvedilol] 6.25 mg PO BID 30 Days #60 tablet Warfarin Sodium [Coumadin*] 2 mg PO DAILY 5 PM 30 Days #30 tab Duloxetine [Cymbalta *] 1 cap PO DAILY #30 cap Ensure High Protein 237 ml PO BID 30 Days #60 can Alendronate Sodium [Fosamax] 1 tab PO SEECOM #30 Metformin HCl [Glucophage*] 1 tab PO BIDWM #60 tab glipiZIDE [Glucotrol*] 1 tab PO BID #60 tab Polyethyl Gly 3350 [Glycolax*] 17 gm PO DAILY #30 udbot Furosemide [Lasix*] 20 mg PO DAILY 30 Days #30 tab Diphenox/Atropine [Lomotil*] 1 tab PO QID PRN #30 tab PRN Reason: Diarrhea Enoxaparin Sodium [Lovenox 80 MG INJ*] 80 mg SQ Q24H #7 syr Melatonin [Melatonin*] 3 mg PO BEDTIME 30 Days #30 tablet Nitroglycerin [Nitrostat*] 0.4 mg SL UD PRN #20 tab PRN Reason: Pain Scale 2-4 (Mild) Famotidine [Pepcid] 20 mg PO DAILY 30 Days #30 tablet predniSONE [Deltasone] 20 mg PO BID #21 tab Senosides [Senokot*] 17.2 mg PO BID #120 tab Levothyroxine [Synthroid*] 1 tab PO [id number] #30 tab Tramadol HCl [Ultram] 1 tab PO Q6H PRN #30 PRN Reason: Pain Scale 5-7 (Moderate) Diet: ADA Activity: Fall precautions Followup: Jonny Lopez MD [ACTIVE - CAN ADMIT] - 1-2 Weeks (call for appointment) Bruce Joe MD [Primary Care Provider] - 1 Week (call for appointment ) Time spent managing pt's care (in minutes): 42
== END 2020-07-28 16:15 | disposition home health service (06) | DRG 280 ==
LOC: ER 14:45 → ERHOLD 17:50 → 4TH 07-25 18:08
PROVIDERS: ADMIT Internal Medicine; ATTEND Internal Medicine
DX: I21.4 Non-ST elevation (NSTEMI) myocardial infarction (principal); U07.1 COVID-19; A41.89 Other specified sepsis; J12.82 Pneumonia due to coronavirus disease 2019; I50.23 Acute on chronic systolic (congestive) heart failure; I11.0 Hypertensive heart disease with heart failure; I25.2 Old myocardial infarction; E11.40 Type 2 diabetes mellitus with diabetic neuropathy, unspecified; F32.9 Major depressive disorder, single episode, unspecified; D64.9 Anemia, unspecified; K21.9 Gastro-esophageal reflux disease without esophagitis; E03.9 Hypothyroidism, unspecified; E78.5 Hyperlipidemia, unspecified; M10.9 Gout, unspecified; Z90.49 Acquired absence of other specified parts of digestive tract; Z79.890 Hormone replacement therapy; Z79.84 Long term (current) use of oral hypoglycemic drugs; Z79.01 Long term (current) use of anticoagulants; Z79.899 Other long term (current) drug therapy; Z79.52 Long term (current) use of systemic steroids; Z90.710 Acquired absence of both cervix and uterus
CPT/HCPCS: 36415; 71045; 80048; 80061; 80076; 82274; 82947; 83735; 83880; 84484; 85025; 85610; 85730; 87040; 93005; 93306; 94760; 96374; 96375; 99285; J0692; J1644; J1940; J2270; J2405; J3370; J7050; U0003

== ENCOUNTER 2020-07-30 23:43 | Inpatient (IN) | payer OTHER ==
--- OUTSIDE RECORDS SUMMARY | 2020-07-30 23:47 | XMS REPORT | Continuity of Care Document ---
:1950 Author Organization [facility] t Address [address] [place] [address] Care Team Providers Name Role Phone Unavailable Unavailable Unavailable Payers Payer Name Policy Type Policy Number Effective Date Expiration Date S ource Problems This patient has no known problems. Allergies, Adverse Reactions, Alerts Allergy Allergy Status Severity Reaction(s) Onset Inactive Treating Comm ents Source Name Type Date Date Clinician No Known DA Active U 2019-07 [facility] Allergie - Clear s 00:00: Dai [address] [place] [address] Medications This patient has no known medications. Procedures This patient has no known procedures. Results Test Description Test Time Test Comments Results Result Comments Source GLUCOSE BEDSIDE TESTING 2020-06-30 11:56:00 Test Item Value Reference Range Interpretation Comme nts GLUCOSE BEDSIDE TESTING (test code = GLUBED) 187 mg/dL 70-110 H GLUCOSE BEDSIDE [id number] 08:24:00 Test Item Value Reference Range Interpretation Comments GLUCOSE BEDSIDE TESTING (test code 167 mg/dL 70-110 H = GLUBED) GLUCOSE BEDSIDE [id number] 20:51:00 Test Item Value Reference Range Interpretation Comments GLUCOSE BEDSIDE TESTING (test code 219 mg/dL 70-110 H = GLUBED) GLUCOSE BEDSIDE [id number] 17:31:00 Test Item Value Reference Range Interpretation Comments GLUCOSE BEDSIDE TESTING (test code = 96 mg/dL 70-110 N GLUBED) GLUCOSE BEDSIDE [id number] 12:08:00 Test Item Value Reference Range Interpretation Comments GLUCOSE BEDSIDE TESTING (test code 215 mg/dL 70-110 H = GLUBED) GLUCOSE BEDSIDE [id number] 08:14:00 Test Item Value Reference Range Interpretation Comments GLUCOSE BEDSIDE TESTING (test code 204 mg/dL 70-110 H = GLUBED) GLUCOSE BEDSIDE [id number] 20:32:00 Test Item Value Reference Range Interpretation Comments GLUCOSE BEDSIDE TESTING (test code 242 mg/dL 70-110 H = GLUBED) GLUCOSE BEDSIDE [id number] 17:18:00 Test Item Value Reference Range Interpretation Comments GLUCOSE BEDSIDE TESTING (test code 236 mg/dL 70-110 H = GLUBED) GLUCOSE BEDSIDE [id number] 12:33:00 Test Item Value Reference Range Interpretation Comments GLUCOSE BEDSIDE TESTING (test code 224 mg/dL 70-110 H = GLUBED) GLUCOSE BEDSIDE [id number] 08:31:00 Test Item Value Reference Range Interpretation Comments GLUCOSE BEDSIDE TESTING (test code 164 mg/dL 70-110 H = GLUBED) CBC W/AUTO [id number] 06:15:00 Test Item Value Reference Range Interpretation [...] NO DIFF/SCN CRITERIA = MDIFF) GLUCOSE BEDSIDE [id number] 21:03:00 Test Item Value Reference Range Interpretation Comments GLUCOSE BEDSIDE TESTING (test code 319 mg/dL 70-110 H = GLUBED) GLUCOSE BEDSIDE [id number] 17:20:00 Test Item Value Reference Range Interpretation Comments GLUCOSE BEDSIDE TESTING (test code 192 mg/dL 70-110 H = GLUBED) GLUCOSE BEDSIDE [id number] 12:30:00 Test Item Value Reference Range Interpretation Comments GLUCOSE BEDSIDE TESTING (test code 286 mg/dL 70-110 H = GLUBED) GLUCOSE BEDSIDE [id number] 08:24:00 Test Item Value Reference Range Interpretation Comments GLUCOSE BEDSIDE TESTING (test code 193 mg/dL 70-110 H = GLUBED) GLUCOSE BEDSIDE [id number] 20:46:00 Test Item Value Reference Range Interpretation Comments GLUCOSE BEDSIDE TESTING (test code 161 mg/dL 70-110 H = GLUBED) GLUCOSE BEDSIDE [id number] 16:40:00 Test Item Value Reference Range Interpretation Comments GLUCOSE BEDSIDE TESTING (test code 302 mg/dL 70-110 H = GLUBED) GLUCOSE BEDSIDE [id number] 12:17:00 Test Item Value Reference Range Interpretation Comments GLUCOSE BEDSIDE TESTING (test code 330 mg/dL 70-110 H = GLUBED) GLUCOSE BEDSIDE [id number] 08:39:00 Test Item Value Reference Range Interpretation Comments GLUCOSE BEDSIDE TESTING (test code 144 mg/dL 70-110 H = GLUBED) BASIC METABOLIC [id number] 06:08:00 Test Item Value Reference Range Interpretation [...] CA) 8.7 MG/DL 8.5-10.1 N CBC W/AUTO [id number] 05:50:00 Test Item Value Reference Range Interpretation [...] NO DIFF/SCN CRITERIA = MDIFF) GLUCOSE BEDSIDE [id number] 20:09:00 Test Item Value Reference Range Interpretation Comments GLUCOSE BEDSIDE TESTING (test code 304 mg/dL 70-110 H = GLUBED) GLUCOSE BEDSIDE [id number] 19:39:00 Test Item Value Reference Range Interpretation Comments GLUCOSE BEDSIDE TESTING (test code 175 mg/dL 70-110 H = GLUBED) Coronavirus 2019 nCoV [id number] 11:34:00 Test Item Value Reference Range Interpretation Comments Coronavirus 2019 nCoV Bedside (test Positive Negative code = [id number]) BASIC METABOLIC [id number] 05:48:00 Test Item Value Reference Range Interpretation [...] CA) 8.8 MG/DL 8.5-10.1 N CBC W/AUTO [id number] 05:34:00 Test Item Value Reference Range Interpretation [...] NO DIFF/SCN CRITERIA = MDIFF) GLUCOSE BEDSIDE [id number] 20:14:00 Test Item Value Reference Range Interpretation Comments GLUCOSE BEDSIDE TESTING (test code 231 mg/dL 70-110 H = GLUBED) GLUCOSE BEDSIDE [id number] 16:38:00 Test Item Value Reference Range Interpretation Comments GLUCOSE BEDSIDE TESTING (test code 225 mg/dL 70-110 H = GLUBED) GLUCOSE BEDSIDE [id number] 12:08:00 Test Item Value Reference Range Interpretation Comments GLUCOSE BEDSIDE TESTING (test code 307 mg/dL 70-110 H = GLUBED) GLUCOSE BEDSIDE [id number] 08:28:00 Test Item Value Reference Range Interpretation Comments GLUCOSE BEDSIDE TESTING (test code 114 mg/dL 70-110 H = GLUBED) BASIC METABOLIC [id number] 06:55:00 Test Item Value Reference Range Interpretation [...] CA) 8.6 MG/DL 8.5-10.1 N CBC W/AUTO [id number] 06:37:00 Test Item Value Reference Range Interpretation [...] NO DIFF/SCN CRITERIA = MDIFF) GLUCOSE BEDSIDE [id number] 20:59:00 Test Item Value Reference Range Interpretation Comments GLUCOSE BEDSIDE TESTING (test code 112 mg/dL 70-110 H = GLUBED) GLUCOSE BEDSIDE [id number] 16:32:00 Test Item Value Reference Range Interpretation Comments GLUCOSE BEDSIDE TESTING (test code 240 mg/dL 70-110 H = GLUBED) GLUCOSE BEDSIDE [id number] 12:49:00 Test Item Value Reference Range Interpretation Comments GLUCOSE BEDSIDE TESTING (test code 266 mg/dL 70-110 H = GLUBED) GLUCOSE BEDSIDE [id number] 08:35:00 Test Item Value Reference Range Interpretation Comments GLUCOSE BEDSIDE TESTING (test code 186 mg/dL 70-110 H = GLUBED) CBC W/AUTO [id number] 06:52:00 Test Item Value Reference Range Interpretation [...] NT WITH AUTO DIFFERENTI AL. BASIC METABOLIC [id number] 06:28:00 Test Item Value Reference Range Interpretation [...] code = CA) 8.8 MG/DL 8.5-10.1 N [id number] 06:28:00 Test Item Value Reference Range Interpretation Comments PHOSPHOROUS (test code = PHOS) 2.6 MG/DL 2.5-4.9 N LACTIC DEHYDROGENASE(LDH)2020-06-23 06:28:00 Test Item Value Reference Range Interpretation Comments LACTIC DEHYDROGENASE(LDH) (test 271 Unit/L 84-246 H code = LDH) [id number] 06:28:00 Test Item Value Reference Range Interpretation Comments MAGNESIUM (test code = MAG) 2.1 MG/DL 1.8-2.4 N CBC W/AUTO [id number] 06:15:00 Test Item Value Reference Range Interpretation [...] code = DIFF/SCN CRITERIA MDIFF) GLUCOSE BEDSIDE [id number] 19:43:00 Test Item Value Reference Range Interpretation Comments GLUCOSE BEDSIDE TESTING (test code 405 mg/dL 70-110 H = GLUBED) GLUCOSE BEDSIDE [id number] 16:28:00 Test Item Value Reference Range Interpretation Comments GLUCOSE BEDSIDE TESTING (test code 299 mg/dL 70-110 H = GLUBED) GLUCOSE BEDSIDE [id number] 12:20:00 Test Item Value Reference Range Interpretation Comments GLUCOSE BEDSIDE TESTING (test code 273 mg/dL 70-110 H = GLUBED) GLUCOSE BEDSIDE [id number] 08:12:00 Test Item Value Reference Range Interpretation Comments GLUCOSE BEDSIDE TESTING (test code 118 mg/dL 70-110 H = GLUBED) BASIC METABOLIC [id number] 06:50:00 Test Item Value Reference Range Interpretation [...] code = CA) 9.3 MG/DL 8.5-10.1 N [id number] 06:50:00 Test Item Value Reference Range Interpretation Comments PHOSPHOROUS (test code = PHOS) 2.6 MG/DL 2.5-4.9 N LACTIC DEHYDROGENASE(LDH)2020-06-22 06:50:00 Test Item Value Reference Range Interpretation Comments LACTIC DEHYDROGENASE(LDH) (test 326 Unit/L 84-246 H code = LDH) [id number] 06:50:00 Test Item Value Reference Range Interpretation Comments MAGNESIUM (test code = MAG) 1.7 MG/DL 1.8-2.4 L [id number] 06:47:00 Test Item Value Reference Range Interpretation Comments D-DIMER (test code = DDIMER) 3044 ng/mLFEU 215-500 HH CBC W/AUTO [id number] 06:39:00 Test Item Value Reference Range Interpretation [...] NO DIFF/SCN CRITERIA = MDIFF) GLUCOSE BEDSIDE [id number] 21:52:00 Test Item Value Reference Range Interpretation Comments GLUCOSE BEDSIDE TESTING (test code 195 mg/dL 70-110 H = GLUBED) GLUCOSE BEDSIDE [id number] 16:38:00 Test Item Value Reference Range Interpretation Comments GLUCOSE BEDSIDE TESTING (test code 374 mg/dL 70-110 H = GLUBED) GLUCOSE BEDSIDE [id number] 12:17:00 Test Item Value Reference Range Interpretation Comments GLUCOSE BEDSIDE TESTING (test code 420 mg/dL 70-110 H = GLUBED) GLUCOSE BEDSIDE [id number] 08:22:00 Test Item Value Reference Range Interpretation Comments GLUCOSE BEDSIDE TESTING (test code 238 mg/dL 70-110 H = GLUBED) CBC W/AUTO [id number] 05:54:00 Test Item Value Reference Range Interpretation [...] (test code NO DIFF/SCN CRITERIA = MDIFF) [id number] 05:21:00 Test Item Value Reference Range Interpretation Comments D-DIMER (test code = DDIMER) 4184 ng/mLFEU 215-500 HH BASIC METABOLIC [id number] 05:21:00 Test Item Value Reference Range Interpretation [...] code = CA) 8.5 MG/DL 8.5-10.1 N [id number] 05:21:00 Test Item Value Reference Range Interpretation Comments PHOSPHOROUS (test code = PHOS) 2.9 MG/DL 2.5-4.9 N LACTIC DEHYDROGENASE(LDH)2020-06-21 05:21:00 Test Item Value Reference Range Interpretation Comments LACTIC DEHYDROGENASE(LDH) (test 271 Unit/L 84-246 H code = LDH) [id number] 05:21:00 Test Item Value Reference Range Interpretation Comments MAGNESIUM (test code = MAG) 1.4 MG/DL 1.8-2.4 L CBC W/AUTO [id number] 05:04:00 Test Item Value Reference Range Interpretation [...] code = DIFF/SCN CRITERIA MDIFF) THROMBOPLASTIN TIME [id number] 02:51:00 Test Item Value Reference Range Interpretation Comments THROMBOPLASTIN TIME PARTIAL 160.7 SECONDS 26-35 HH (test code = PTT) GLUCOSE BEDSIDE [id number] 21:12:00 Test Item Value Reference Range Interpretation Comments GLUCOSE BEDSIDE TESTING (test code 297 mg/dL 70-110 H = GLUBED) THROMBOPLASTIN TIME [id number] 20:35:00 Test Item Value Reference Range Interpretation Comments THROMBOPLASTIN TIME PARTIAL 35.2 SECONDS 26-35 H (test code = PTT) GLUCOSE BEDSIDE [id number] 16:25:00 Test Item Value Reference Range Interpretation [...] = LDL/HDL) 0.80 Ratio 1.48-3.22 Avg L [id number] 15:14:00 Test Item Value Reference Range Interpretation [...] yby method. Completed by Nursing: NO- CTA [id number] 14:47:00 [facility] 1950 Sex: F Name: IRINA FONG [facility] : 1950 Age/S: 70 / F [address] Unit #: [id number] Loc: [place] [address] Phys: Nito Shipley MD Acct: [id number] Dis Date: Status: REG ER PHONE #: [phone] Exam Date: 06/20/2020 4396 FAX #: Reason: Chest Pain r/o PE EXAMS: CPT: [id number] CTA CHEST 70759 CTA chest, contrast-enhanced (pulmonary embolism protocol }.Reconstructed [...] IRINA FONG : 1950 Age/S:70 / F [address] Unit #: [id number] Loc: [place] [address] Phys: Nito Shipley MD Acct: [id number] Dis Date: Status: REG ER PHONE #: [phone] Exam Date: 06/20/2020 142 FAX #: Reason: Chest Pain r/o PE EXAMS: CPT: [id number] CTA CHEST 36590 <Continued> Cardiomegaly with small to moderate pericardial effusion. Bilateral pneumonia. Location: 9 at 1447 Reported and signed by: Ricky Alegre M.D CC: Nito Shipley MD Technologist:Janett Graf, RT(R)(CT)(MRI) CTDI: DLP: Trnscb Date/Time:06/20/2020 (1447) t.[email or web address] Orig Print D/T: S: 06/20/2020 (9618) PAGE 2 Signed ReportCoronavirus 2019 nCoV [id number] 13:48:00 Test Item Value Reference Range Interpretation Comments Coronavirus 2019 nCoV Bedside (test Positive Negative code = [id number]) BASIC METABOLIC [id number] 13:24:00 Test Item Value Reference Range Interpretation [...] Unit/L 26-192 N CK) Completed by Nursing: [id number] 13:24:00 Test Item Value Reference Range Interpretation [...] delmy yby method. Completed by Nursing: NOPROTHROMBIN [id number] 13:03:00 Test Item Value Reference Range Interpretation Comments PT PATIENT (test code = PTP) 15.8 SECONDS 9.3-12.9 H [employer] NORMAL RATIO 1.39 INR Unit 0.8-1.2 H (test code = INR) THROMBOPLASTIN TIME [id number] 13:03:00 Test Item Value Reference Range Interpretation Comments THROMBOPLASTIN TIME PARTIAL 18.0 SECONDS 26-35 L (test code = PTT) - XR CHEST 1 [id number] 13:02:00 [facility] : 1950 Sex: F Name: IRINA FONG : 1950 Age/S: 70 / F [address] Unit #: [id number] Loc: [place] [address] Phys: Nito Shipley MD Acct: [id number] Dis Date: Status: REG ER PHONE #: [phone] Exam Date: 06/20/2020 1245 FAX #: Reason: chest pain EXAMS: CPT: [id number] XR CHEST 1 V 81554 Fluoro Time: DAP (Gy m2): Air Kerma [...] IRINA FONG : 1950ge/S: 70 / F [address] Unit #: [id number] Loc: [place] [address] Phys: Nito Shipley MD Acct: [id number] Dis Date: Status: REG ER PHONE#: [phone] Exam Date: 06/20/2020 1245 FAX #: Reason: chest pain EXAMS: CPT: [id number] XR CHEST 1 V 54234 Fluoro Time: DAP (Gy m2): Air Kerma (mGy): <Continued> Technologist: Anna Maldonado, RT(R) Trnscb Date/Time: 06/20/2020 (1302) [email or web address] Orig Print D/T: S: 06/20/2020 (3253) PAGE 2 Signed ReportCBC W/O [id number] 12:58:00 Test Item Value Reference Range Interpretation [...]
[2020-07-31 00:58] LABS: Protime INR 1.46
[2020-07-31 01:00] LABS: Absolute Lymphocytes (CBC) 0.8 K/uL (0.7-4.9); Basophils % 0.2 % (0-1.3); Hematocrit 26.4 % (36.0-45.0); Lymphocytes % 12.2 % (15.3-44.8); RBC Red Blood Cell Count 3.31 M/uL (3.86-4.86)
[2020-07-31 01:29] LABS: Bilirubin Direct 0.2 mg/dL (0-0.2); Bilirubin Total 0.6 mg/dL (0.2-1.0); Magnesium 1.5 mg/dL (1.8-2.4); Potassium 4.7 mmol/L (3.5-5.1)
[2020-07-31 01:30] LABS: Troponin (Emerg Dept Use Only) 1.49 ng/mL (0.0-0.045)
[2020-07-31] MEDS ORDERED: FAMOTIDINE 20 MG/2 ML VIAL IV ONE (01:36)
[2020-07-31] MEDS ORDERED: MORPHINE 2 MG/ML SYR ONE (01:36)
[2020-07-31] MEDS ORDERED: ONDANSETRON 4 MG/2 ML VIAL ONE ×2 (01:36→11:14)
[2020-07-31] MEDS ORDERED: ASPIRIN EC 81 MG TAB PO ONE (01:36)
--- NOTE | 2020-07-31 01:52 | ER ---
Nurse's Notes [facility] Jorge Name: Linda Menezes Age: 70 yrs Sex: Female : 1950 Arrival Date: 07/30/2020 Time: 23:48 Bed 8 Private MD: Diagnosis: Hypomagnesemia;Cardiomegaly;Anemia, unspecified;Non-ST elevation (NSTEMI) myocardial infarction;SARS-associated coronavirus as the cause of diseases classified elsewhere-covid 19;Type 2 diabetes mellitus Presentation: 07/31 00:07 Chief complaint: EMS states: numbness and tingling sensation on both hands. denies rv weakness. sharp pain on left shoulder, 4/10. Coronavirus screen: Client reports previous positive COVID test result. Date of collection: July 28, 2020. Ebola Screen: No symptoms or risks identified at this time. Initial Sepsis Screen: Does the patient meet any 2 criteria? No. Patient's initial sepsis screen is negative. Does the patient have a suspected source of infection? No. Patient's initial sepsis screen is negative. Risk Assessment: Do you want to hurt yourself or someone else? Patient reports no desire to harm self or others. Onset of symptoms was July 30, 2020. 00:07 Method Of Arrival: EMS: [facility] 00:07 Acuity: ALHAJI 3 rv Triage Assessment: 00:11 General: Appears comfortable, Behavior is calm, cooperative. Pain: Complains of pain in rv anterior aspect of left shoulder Pain currently is 4 out of 10 on a pain scale. Quality of pain is described as sharp, Pain began suddenly, Is intermittent. EENT: No signs and/or symptoms were reported regarding the EENT system. Neuro: Level of Consciousness is awake, alert, obeys commands, Oriented to person, place, time, situation. Cardiovascular: Patient's skin is warm and dry. Respiratory: Airway is patent Respiratory effort is even, unlabored, Breath sounds are clear bilaterally. Derm: Skin is intact. Historical: - Allergies: 02:15 NKA; mg2 - PMHx: 00:11 chronic back pain; Diabetes - NIDDM; Hypertension; intussusception intestine; rv Myocardial infarction; neuropathy; restless leg syndrome; - PSHx: 00:13 Cholecystectomy; rv - Immunization history:: Adult Immunizations up to date, Pneumococcal vaccine is up to date, Flu vaccine is up to date. - Social history:: Smoking status: Patient denies any tobacco usage or history of. - Family history:: not pertinent. Screenin:13 Abuse screen: Denies threats or abuse. Denies injuries from another. Nutritional rv screening: No deficits noted. Tuberculosis screening: No symptoms or risk factors identified. Fall Risk None identified. Assessment: 01:00 General: Appears in no apparent distress. comfortable. Pain: Complains of pain in mg2 shoulder. Neuro: Level of Consciousness is awake, alert, obeys commands, Oriented to person, place, time, situation. Cardiovascular: Capillary refill < 3 seconds Patient's skin is warm and dry. Respiratory: Airway is patent Respiratory effort is even, unlabored, Respiratory pattern is regular, symmetrical. GI: No signs and/or symptoms were reported involving the gastrointestinal system. : No signs and/or symptoms were reported regarding the genitourinary system. EENT: No deficits noted. Derm: Skin is intact, is healthy with good turgor, Skin is pink, warm \T\ dry. normal. Musculoskeletal: Circulation, motion, and sensation intact. Capillary refill < 3 seconds. Vital Signs: 00:07 BP 111 / 66; Pulse 88; Resp 18; Temp 98.3; Pulse Ox 100% ; Weight 68.04 kg; Height 5 rv ft. 5 in. (165.10 cm); Pain 4/10; 00:07 Body Mass Index 24.96 (68.04 kg, 165.10 cm) rv ED Course: 07/30 23:48 Patient arrived in ED. mw2 23:51 Deon Mcbride RN is Primary Nurse. rv 07/31 00:01 Frantz Urban MD is Attending Physician. nasrin 00:10 Triage completed. rv 00:13 Arm band placed on right wrist. Patient placed in the treatment room, on a stretcher, rv Patient notified of wait time. 00:14 Patient has correct armband on for positive identification. Pulse ox on. NIBP on. rv 00:56 XRAY Chest (1 view) In Process Unspecified. EDMS 01:26 No provider procedures requiring assistance completed. Inserted saline lock: 20 gauge mg2 in right forearm, using aseptic technique. Blood collected. by SENG Molina. 01:31 Notified ED physician of a critical lab result(s). troponin 1.49. sg 01:46 Sumit Arriaza DO is Hospitalizing Provider. nasrin 02:32 Guerrero cath inserted, using sterile technique, 16 Fr., by vt, balloon inflated, to rv gravity drainage, urine specimen collected. Patient tolerated well. 03:05 Patient admitted, IV remains in place. mg2 06:07 Notified ED physician of a critical lab result(s). Troponin 1.39. sg 07:16 Primary Nurse role handed off by Deon Mcbride RN bd Administered Medications: 01:25 Drug: Pepcid 20 mg Route: IVP; Site: right forearm; mg2 06:41 Follow up: Response: No adverse reaction mg2 01:25 Drug: Aspirin 81 mg Route: PO; mg2 06:41 Follow up: Response: No adverse reaction mg2 01:26 Drug: morphine 2 mg Route: IVP; Site: right forearm; mg2 06:41 Follow up: Response: No adverse reaction mg2 01:26 Drug: Zofran (Ondansetron) 4 mg Route: IVP; Site: right forearm; mg2 06:41 Follow up: Response: No adverse reaction mg2 02:33 Drug: Magnesium Sulfate 1 grams Route: IVPB; Infused Over: 1 hrs; Site: right forearm; rv 06:41 Follow up: Response: No adverse reaction; IV Status: Completed infusion; IV Intake: mg2 100ml 02:33 Drug: Lovenox 60 mg Route: Sub-Q; Site: abdomen; rv 06:40 Follow up: Response: No adverse reaction mg2 02:33 Drug: Lasix 40 mg Route: IVP; Site: right forearm; rv 06:40 Follow up: Response: No adverse reaction mg2 Intake: 06:41 IV: 100ml; Total: 100ml. mg2 Outcome: 01:51 Decision to Hospitalize by Provider. nasrin 03:05 Admitted to ER Hold. Please see Hoverink for further documentation. mg2 03:05 Condition: stable 03:05 Instructed on the need for admit. 17:30 Patient left the ED. ph Signatures: Dispatcher [employer] EDMS Sulma Fields Steven, RN RN Frantz Urban MD MD cha Hall, Patricia, RN RN Roshan Adams [facility] Gurjit Neal RN RN Deon Martino RN RN rv Corrections: (The following items were deleted from the chart) 00:13 00:11 PSHx: None; rv rv
--- NOTE | 2020-07-31 01:52 | EDPHYS ---
Physician Documentation [facility] Name: Linda Menezes Age: 70 yrs Sex: Female : 1950 Arrival Date: 07/30/2020 Time: 23:48 Bed 8 Private MD: JONATHAN Physician Frantz Urban HPI: 07/31 00:14 This 70 yrs old Female presents to ER via EMS with complaints of cough, arm nasrin pain and weakness. 00:14 The patient or guardian complains of pain, that is acute. The complaints affect the nasrin right bicep, dorsal aspect of right forearm, right tricep and palmar aspect of right forearm, dorsal aspect of left forearm and palmar aspect of left forearm. Context: The problem was sustained at home. Onset: The symptoms/episode began/occurred 1 day(s) ago. Treatment prior to arrival includes: no previous treatment. Modifying factors: The symptoms are alleviated by nothing. the symptoms are aggravated by nothing. The patient has shortness of breath at rest. The patient's shortness of breath has no apparent modifying factors. Historical: - Allergies: 02:15 NKA; mg2 - PMHx: 00:11 chronic back pain; Diabetes - NIDDM; Hypertension; intussusception intestine; rv Myocardial infarction; neuropathy; restless leg syndrome; - PSHx: 00:13 Cholecystectomy; rv - Immunization history:: Adult Immunizations up to date, Pneumococcal vaccine is up to date, Flu vaccine is up to date. - Social history:: Smoking status: Patient denies any tobacco usage or history of. - Family history:: not pertinent. ROS: 00:14 Constitutional: Negative for fever, chills, and weight loss, Eyes: Negative for injury, narsin pain, redness, and discharge, ENT: Negative for injury, pain, and discharge, Neck: Negative for injury, pain, and swelling, Cardiovascular: Negative for chest pain, palpitations, and edema, Respiratory: Negative for shortness of breath, cough, wheezing, and pleuritic chest pain, Abdomen/GI: Negative for abdominal pain, nausea, vomiting, diarrhea, and constipation, Back: Negative for injury and pain, : Negative for injury, bleeding, discharge, and swelling, Skin: Negative for injury, rash, and discoloration, Neuro: Negative for headache, weakness, numbness, tingling, and seizure, Psych: Negative for depression, anxiety, suicide ideation, homicidal ideation, and hallucinations, Allergy/Immunology: Negative for hives, rash, and allergies, Endocrine: Negative for neck swelling, polydipsia, polyuria, polyphagia, and marked weight changes, Hematologic/Lymphatic: Negative for swollen nodes, abnormal bleeding, and unusual bruising. 00:14 MS/extremity: Positive for pain, of the right arm and left arm. Exam: 00:14 Constitutional: This is a well developed, well nourished patient who is awake, alert, nasrin and in no acute distress. Head/Face: Normocephalic, atraumatic. Eyes: Pupils equal round and reactive to light, extra-ocular motions intact. Lids and lashes normal. Conjunctiva and sclera are non-icteric and not injected. Cornea within normal limits. Periorbital areas with no swelling, redness, or edema. ENT: Nares patent. No nasal discharge, no septal abnormalities noted. Tympanic membranes are normal and external auditory canals are clear. Oropharynx with no redness, swelling, or masses, exudates, or evidence of obstruction, uvula midline. Mucous membranes moist. Neck: Trachea midline, no thyromegaly or masses palpated, and no cervical lymphadenopathy. Supple, full range of motion without nuchal rigidity, or vertebral point tenderness. No Meningismus. Chest/axilla: Normal chest wall appearance and motion. Nontender with no deformity. No lesions are appreciated. Cardiovascular: Regular rate and rhythm with a normal S1 and S2. No gallops, murmurs, or rubs. Normal PMI, no JVD. No pulse deficits. Abdomen/GI: Soft, non-tender, with normal bowel sounds. No distension or tympany. No guarding or rebound. No evidence of tenderness throughout. Back: No spinal tenderness. No costovertebral tenderness. Full range of motion. Female : Normal external genitalia. Skin: Warm, dry with normal turgor. Normal color with no rashes, no lesions, and no evidence of cellulitis. MS/ Extremity: Pulses equal, no cyanosis. Neurovascular intact. Full, normal range of motion. Neuro: Awake and alert, GCS 15, oriented to person, place, time, and situation. Cranial nerves II-XII grossly intact. Motor strength 5/5 in all extremities. Sensory grossly intact. Cerebellar exam normal. Normal gait. Psych: Awake, alert, with orientation to person, place and time. Behavior, mood, and affect are within normal limits. 00:14 Respiratory: the patient does not display signs of respiratory distress, Respirations: normal, no acute changes, labored breathing, is not present, Breath sounds: decreased breath sounds, that are mild, are scattered, rhonchi, that are mild, are located in both bases, are heard in the right posterior middle lobe and right posterior lower lobe. 02:04 ECG was reviewed by the Attending Physician. nasrin Vital Signs: 00:07 BP 111 / 66; Pulse 88; Resp 18; Temp 98.3; Pulse Ox 100% ; Weight 68.04 kg; Height 5 rv ft. 5 in. (165.10 cm); Pain 4/10; 00:07 Body Mass Index 24.96 (68.04 kg, 165.10 cm) rv MDM: 00:01 Patient medically screened. nasrin 00:16 Differential diagnosis: Bronchitis CHF exacerbation, pneumonia, pulmonary edema, nasrin Pulmonary Embolism Sepsis Unstable Angina. Data reviewed: vital signs, nurses notes, lab test result(s), EKG, radiologic studies, plain films. Data interpreted: school bus monitor: rate is 88 beats/min, rhythm is regular. Test interpretation: by ED physician or midlevel provider: ECG, plain radiologic studies. Counseling: I had a detailed discussion with the patient and/or guardian regarding: the historical points, exam findings, and any diagnostic results supporting the discharge/admit diagnosis, lab results, radiology results. 07/31 00:13 Order name: Basic Metabolic Panel; Complete Time: [facility] 07/31 00:13 Order name: CBC with Diff; Complete Time: [facility] 07/31 00:13 Order name: LFT's; Complete Time: : [facility] 07/31 00:13 Order name: Magnesium; Complete Time: : [facility] 07/31 00:13 Order name: NT PRO-BNP; Complete Time: : [facility] 07/31 00:13 Order name: PT-INR; Complete Time: : [facility] 07/31 00:13 Order name: Troponin (emerg Dept Use Only); Complete Time: :40 [facility] 07/31 00:13 Order name: Blood Culture Adult (2) [facility] 07/31 05:29 Order name: COVID-19 mg2 07/31 05:40 Order name: CBC with Automated Diff; Complete Time: 14:53 EDMS 07/31 05:48 Order name: CORONAVIRUS EDMS 07/31 06:07 Order name: Basic Metabolic Panel; Complete Time: 14:53 EDMS 07/31 06:07 Order name: Troponin I; Complete Time: 14:53 EDMS 07/31 06:31 Order name: SARS-COV-2 RT PCR; Complete Time: 14:53 EDMD 07/31 00:13 Order name: XRAY Chest (1 view); Complete Time: 14:53 [facility] 07/31 00:13 Order name: EKG; Complete Time: 00:14 [facility] 07/31 00:13 Order name: Cardiac monitoring; Complete Time: 02:34 [facility] 07/31 00:13 Order name: EKG - Nurse/Tech; Complete Time: 02:34 [facility] 07/31 00:13 Order name: IV Saline Lock; Complete Time: 02:34 [facility] 07/31 08:38 Order name: Glucose, Ancillary Testing; Complete Time: 14:53 EDMD 07/31 11:19 Order name: Glucose, Ancillary Testing; Complete Time: 14:53 EDMD 07/31 11:54 Order name: Troponin I; Complete Time: 14:53 EDMD 07/31 17:29 Order name: Glucose, Ancillary Testing [facility] 07/31 00:13 Order name: Labs collected and sent; Complete Time: 02:34 [facility] 07/31 00:13 Order name: O2 Per Protocol; Complete Time: 02:34 [facility] 07/31 00:13 Order name: O2 Sat Monitoring; Complete Time: 02:34 [facility] 07/31 00:13 Order name: Urine Dipstick-Ancillary (obtain specimen); Complete Time: 03:04 [facility] 07/31 01:45 Order name: Guerrero; Complete Time: 02:34 [facility] EC:04 Rate is 81 beats/min. Rhythm is regular. QRS [place] is Normal. ID interval is normal. QRS nasrin interval is normal. QT interval is normal. No Q waves. T waves are Normal. No ST changes noted. Clinical impression: NSR w/ Non-specific ST/T Changes and No evidence of ischemia. Interpreted by me. Reviewed by me. Administered Medications: 01:25 Drug: Pepcid 20 mg Route: IVP; Site: right forearm; mg2 06:41 Follow up: Response: No adverse reaction mg2 01:25 Drug: Aspirin 81 mg Route: PO; mg2 06:41 Follow up: Response: No adverse reaction mg2 01:26 Drug: morphine 2 mg Route: IVP; Site: right forearm; mg2 06:41 Follow up: Response: No adverse reaction mg2 01:26 Drug: Zofran (Ondansetron) 4 mg Route: IVP; Site: right forearm; mg2 06:41 Follow up: Response: No adverse reaction mg2 02:33 Drug: Magnesium Sulfate 1 grams Route: IVPB; Infused Over: 1 hrs; Site: right forearm; rv 06:41 Follow up: Response: No adverse reaction; IV Status: Completed infusion; IV Intake: mg2 100ml 02:33 Drug: Lovenox 60 mg Route: Sub-Q; Site: abdomen; rv 06:40 Follow up: Response: No adverse reaction mg2 02:33 Drug: Lasix 40 mg Route: IVP; Site: right forearm; rv 06:40 Follow up: Response: No adverse reaction mg2 Disposition: 07/31/20 01:51 Hospitalization ordered by Sumit Arriaza for Inpatient Admission. Preliminary diagnosis are Hypomagnesemia, Cardiomegaly, Anemia, unspecified, Non-ST elevation (NSTEMI) myocardial infarction, SARS-associated coronavirus as the cause of diseases classified elsewhere - covid 19, Type 2 diabetes mellitus. - Bed requested for Telemetry/MedSurg (Inpatient). - Status is Inpatient Admission. ph - Condition is Fair. - Problem is new. - Symptoms have improved. Signatures: Dispatcher [employer] EDDena Torres RN RN dw Anderson, Corey, MD MD cha Roszak, Josh, JA PA [id number] Heath Cruz, LEARNING DESIGN SPECIALIST-C LEARNING DESIGN SPECIALIST-Cla1 Nancy Valdovinos RN RN ph Aguilar, Jose, RN RN ja1 Gurjit Neal, RN RN Deon Martino RN RN rv Corrections: (The following items were deleted from the chart) 00:13 00:11 PSHx: None; rv rv 02:36 01:51 Hospitalization Ordered by Sumit Arriaza DO for Inpatient Admission. Preliminary diagnosis is Hypomagnesemia; Cardiomegaly; Anemia, unspecified; Non-ST elevation (NSTEMI) myocardial infarction; SARS-associated coronavirus as the cause of diseases classified elsewhere - covid 19; Type 2 diabetes mellitus. Bed requested for Telemetry/MedSurg (Inpatient). Status is Inpatient Admission. Condition is Fair. Problem is new. Symptoms have improved. nasrin 15:48 02:36 07/31/2020 01:51 Hospitalization Ordered by Sumit Arriaza DO for Inpatient ja1 Admission. Preliminary diagnosis is Hypomagnesemia; Cardiomegaly; Anemia, unspecified; Non-ST elevation (NSTEMI) myocardial infarction; SARS-associated coronavirus as the cause of diseases classified elsewhere - covid 19; Type 2 diabetes mellitus. Bed requested for [facility] ER HOLD. Status is Inpatient Admission. Condition is Fair. Problem is new. Symptoms have improved. dw 17:30 15:48 07/31/2020 01:51 Hospitalization Ordered by Sumit Arriaza DO for Inpatient ph Admission. Preliminary diagnosis is Hypomagnesemia; Cardiomegaly; Anemia, unspecified; Non-ST elevation (NSTEMI) myocardial infarction; SARS-associated coronavirus as the cause of diseases classified elsewhere - covid 19; Type 2 diabetes mellitus. Bed requested for Telemetry/MedSurg (Inpatient). Status is Inpatient Admission. Condition is Fair. Problem is new. Symptoms have improved. ja1
[2020-07-31] MEDS ORDERED: FUROSEMIDE 40 MG/4 ML VIAL ONE (02:40)
[2020-07-31] MEDS ORDERED: MAGNESIUM SULFATE 1 gm IVPB 1 GM/100 ML BAG IV ONE (02:40)
[2020-07-31] MEDS ORDERED: ENOXAPARIN 60 MG/0.6 ML SQ ONE (02:40)
--- NOTE | 2020-07-31 03:07 | P.HP ---
Certification for Inpatient Patient admitted to: Inpatient With expected LOS: >2 Midnights Patient will require the following post-hospital care: None Practitioner: I am a practitioner with admitting privileges, knowledge of patient current condition, hospital course, and medical plan of care. Services: Services provided to patient in accordance with Admission requirements found in Title 42 Section 412.3 of the Code of Federal Regulations <Heath Cruz - Last Filed: 07/31/20 02:59> Patient History Date of Service: 07/31/20 Reason for admission: NSTEMI, Unstable angina History of Present Illness: 70-year-old female with history of systolic congestive heart failure, cardiomyopathy, angina, mural thrombus of cardiac apex, diabetes mellitus type 2 presents to the emergency department for chest pain. Patient was initially hospitalized here on 05/31/2020 for NSTEMI and had heart catheterization during her admission which demonstrated clean coronary arteries. Patient diagnosed with takotsubo cardiomyopathy in addition to mural thrombus at the cardiac apex. Patient also has systolic heart failure, last echocardiogram shows improvement of left ventricular ejection fraction to 40%. Patient was also diagnosed with COVID during that hospitalization, [facility] after the hospital stay. Recently patient was discharged from [facility], presented back to the emergency department on 07/24/2020 for chest pain and NSTEMI again. Patient was placed on Lovenox bridge because her INR was subtherapeutic, plan was for patient to be discharged on Lovenox for 1 week but she was unable to have home health set up and therefore did not take Lovenox at home. Patient presented to the emergency department tonight for chest pain. Patient reports that she does have angina periodically but at this pain was more severe and came out of the blue when she was at rest. Labs in the ER significant for elevated troponin 1.49 elevated BNP 88054 hemoglobin 8.4 hematocrit 26.4 patient's hemoglobin seems to be baseline around 8-9. ED provider wishes to admit patient for further evaluation and management. - Past Medical/Surgical History Diabetic: Yes -: Diabetes mellitus type 2, non insulin dependent -: Hypertension -: Hypothyroidism -: Gout -: GERD -: Restless leg syndrome -: Neuropathy -: RESTLESS LEGS SYNDROME -: bronchitis (november 20, 2014) -: right eye lid weakness -: Hysterectomy, 1977 -: intussusception of intestines -: compression disc fracture -: Carpal tunnel Sx, 1983 -: R. elbow Sx, 1999 -: [place] CATARACT SX 2014 -: colonoscopy date unknown, pt advised -: cholecystectomy Psychosocial/ Personal History: The patient is a . She has 2 children. - Family History Father -: Hypertension, Other (see notes) Notes: Parkinson's Mother -: Hypertension, Diabetes, Stroke, Cancer Notes: breast - Social History Smoking Status: Never smoker Alcohol use: No CD- Drugs: No Caffeine use: Yes Place of Residence: Home <Heath Cruz - Last Filed: 07/31/20 02:59> Date of Service: 07/31/20 Home medications list reviewed: Yes <Sumit Arriaza - Last Filed: 07/31/20 17:38> Allergies No Known Drug Allergies Allergy (Verified 06/14/18 10:24) Unknown Home Medications: Alendronate Sodium [Fosamax] 1 tab PO SEECOM #30 07/28/20 Diphenox/Atropine [Lomotil*] 1 tab PO QID PRN #30 tab 07/28/20 Duloxetine [Cymbalta *] 1 cap PO DAILY #30 cap 07/28/20 Enoxaparin Sodium [Lovenox 80 MG INJ*] 80 mg SQ Q24H #7 syr 07/28/20 Ensure High Protein 237 ml PO BID 30 Days #60 can 07/28/20 Famotidine [Pepcid] 20 mg PO DAILY 30 Days #30 tablet 07/28/20 Furosemide [Lasix*] 20 mg PO DAILY 30 Days #30 tab 07/28/20 Levothyroxine [Synthroid*] 1 tab PO TJKER1OY #30 tab 07/28/20 Lovastatin [Altoprev] 1 tab PO DAILY #30 07/28/20 Melatonin [Melatonin*] 3 mg PO BEDTIME 30 Days #30 tablet 07/28/20 Metformin HCl [Glucophage*] 1 tab PO BIDWM #60 tab 07/28/20 Nitroglycerin [Nitrostat*] 0.4 mg SL UD PRN #20 tab 07/28/20 Senosides [Senokot*] 17.2 mg PO BID #120 tab 07/28/20 Spironolactone [Aldactone*] 25 mg PO DAILY 30 Days #30 tab 07/28/20 Tramadol HCl [Ultram] 1 tab PO Q6H PRN #30 07/28/20 Warfarin Sodium [Coumadin*] 2 mg PO DAILY 5 PM 30 Days #30 tab 07/28/20 carvediloL [Carvedilol] 6.25 mg PO BID 30 Days #60 tablet 07/28/20 glipiZIDE [Glucotrol*] 1 tab PO BID #60 tab 07/28/20 predniSONE [Deltasone] 20 mg PO BID #21 tab 07/28/20 Polyethyl Gly 3350 [Glycolax*] 17 gm PO DAILY PRN 07/31/20 Review of Systems 10-point ROS is otherwise unremarkable Respiratory: Shortness of Breath Cardiovascular: Chest Pain <Heath Cruz - Last Filed: 07/31/20 02:59> Physical Examination - Physical Exam General: Alert, In no apparent distress HEENT: Atraumatic, PERRLA, Mucous membr. moist/pink Neck: Supple, 2+ carotid pulse no bruit, No LAD Respiratory: Clear to auscultation bilaterally, Normal air movement Cardiovascular: Regular rate/rhythm, Normal S1 S2 Gastrointestinal: Normal bowel sounds, No tenderness Musculoskeletal: No tenderness Integumentary: No rashes Neurological: Normal speech, Normal strength at 5/5 x4 extr, Normal tone, Normal affect - Studies Laboratory Data (last 24 hrs) 07/31/20 00:30: PT 17.1 H, INR 1.46 07/31/20 00:30: WBC 6.8 D, Hgb 8.4 L, Hct 26.4 L, Plt Count 375 D 07/31/20 00:30: Sodium 134 L, Potassium 4.7, BUN 34 H, Creatinine 1.30, Glucose 247 H, Magnesium 1.5 L, Total Bilirubin 0.6, AST 12 L, ALT 13, Alkaline Phosphatase 55 <Heath Cruz - Last Filed: 07/31/20 02:59> - Studies Laboratory Data (last 24 hrs) 07/31/20 11:05: Troponin I 1.44 H* 07/31/20 04:55: Sodium 134 L, Potassium 4.8, BUN 35 H, Creatinine 1.28, Glucose 281 H, Troponin I 1.39 H* 07/31/20 04:55: WBC 6.0, Hgb 8.2 L, Hct 26.7 L, Plt Count 369 01/21/21 00:30: PT 17.1 H, INR 1.46 07/31/20 00:30: WBC 6.8 D, Hgb 8.4 L, Hct 26.4 L, Plt Count 375 D 07/31/20 00:30: Sodium 134 L, Potassium 4.7, BUN 34 H, Creatinine 1.30, Glucose 247 H, Magnesium 1.5 L, Total Bilirubin 0.6, AST 12 L, ALT 13, Alkaline Phosphatase 55 <Sumit Arriaza - Last Filed: 07/31/20 17:38> Assessment and Plan - Plan Assessment NSTEMI, unstable angina: Acute on chronic systolic 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 Patient had heart catheterization in late May 2020 which was clean, do not anticipate heart catheterization. Will trend troponins, cardiology consult in place. Acute on chronic systolic congestive heart failure with mural thrombus of cardiac apex: Increase Lasix dose, patient takes Coumadin which has been started that INR is again sub therapeutic as she did not take bridges dose of Lovenox and discharge, continue with full-dose Lovenox. Diabetes mellitus type 2: A.c. HS Accu-Cheks, sliding scale insulin therapy. COVID 19+: Does not appear to be symptomatic any longer although she is still testing positive, initially tested positive in May 2020 GERD: Continue Pepcid Hypothyroidism: Obtain and continue home medication. Discharge Plan: Home Plan to discharge in: 48 Hours - Advance Directives Does patient have a Living Will: No Does patient have a Durable POA for Healthcare: No - Code Status/Comfort Care Code Status: Full Code Critical Care: No Time Spent Managing Pts Care (In Minutes): 55 <Heath Cruz - Last Filed: 07/31/20 02:59> - Plan discussed with COMPUTER AIDED DESIGN TECHNICIAN. Case discussed with cardiology. Will continue monitor the patient closely. Patient with significant systolic CHF. Continue monitor the patient closely. Will need to discuss with Cardiology about whether the patient requires Coumadin verses Xarelto. Cardiology recommends continue diuresis. Possible discharge tomorrow. <Sumit Arriaza - Last Filed: 07/31/20 17:38>
[2020-07-31] MEDS: FENTANYL CITR 100 MCG/2 ML IV PRN ×2 (03:30→11:15)
[2020-07-31] MEDS ORDERED: NITROGLYCERIN 0.4 MG/TAB SL PRN (03:45)
[2020-07-31] MEDS ORDERED: FENTANYL CITR 100 MCG/2 ML ONE ×2 (04:10→11:14)
[2020-07-31 04:18] VITALS: BMI 25.0
[2020-07-31 05:21] LABS: Absolute Lymphocytes (CBC) 0.8 K/uL (0.7-4.9); Basophils % 0.3 % (0-1.3); Hematocrit 26.7 % (36.0-45.0); Lymphocytes % 13.7 % (15.3-44.8); MPV 9.3 fL (7.6-11.3); RBC Red Blood Cell Count 3.31 M/uL (3.86-4.86)
[2020-07-31] MEDS ORDERED: BENZONATATE 100 MG CAP PO PRN (05:57)
[2020-07-31 06:04] LABS: Potassium 4.8 mmol/L (3.5-5.1)
[2020-07-31 06:07] LABS: Troponin I 1.39 ng/mL (0.0-0.045)
[2020-07-31] MEDS ORDERED: BENZONATATE 100 MG CAP PO ONE (06:22)
--- NOTE | 2020-07-31 08:04 | RAD REPORT ---
EXAM DESCRIPTION: RAD - Chest Single View - 07/31/2020 12:55 am CLINICAL HISTORY: COUGH COMPARISON: Portable July 24, June 13, June 09 TECHNIQUE: AP portable chest image was obtained 07/31/2020 12:55 am . FINDINGS: Interstitial and alveolar opacification right lung field is not substantially different fr om July 24. Interstitial opacification remains in the left. Most of the alveolar opacification has resolved. Trachea is midline. Cardiac silhouette is enlarged. No pneumothorax present. No large pleu ral effusion. No acute bony abnormality seen. No acute aortic findings suspected. IMPRESSION: Partial clearing of left lung field infiltrate and/ or edema since July 24. No change to the right lung field.
[2020-07-31] MEDS ORDERED: GLUCAGON 1 MG/VIAL IM PRN (08:37)
[2020-07-31] MEDS ORDERED: D50W 25 GM/50 ML SYRINGE IV PRN (08:37)
[2020-07-31] MEDS: SPIRONOLACTONE 25 MG TABLET PO SCH (09:00)
[2020-07-31] MEDS: FAMOTIDINE 20 MG TAB PO SCH (09:00)
[2020-07-31] MEDS: ENOXAPARIN 80 MG/0.8 ML SQ SCH ×2 (09:00→21:00)
[2020-07-31] MEDS ORDERED: carvediloL 6.25 MG TAB PO SCH (09:00)
[2020-07-31] MEDS ORDERED: carvediloL 6.25 MG TAB ONE (09:47)
[2020-07-31] MEDS ORDERED: FUROSEMIDE 20 MG/ 2ML VIAL ONE (09:47)
[2020-07-31] MEDS ORDERED: FAMOTIDINE 20 MG TAB ONE (09:48)
[2020-07-31] MEDS ORDERED: ENOXAPARIN 80 MG/0.8 ML SQ ONE (09:48)
[2020-07-31] MEDS ORDERED: PNEUMOCOCCAL VACCINE 0.5 ML IMVAC ONE (11:00)
[2020-07-31] MEDS: ONDANSETRON 4 MG/2 ML VIAL IV PRN (11:15)
[2020-07-31] MEDS: INSULIN -REGULAR HUMAN 50 UNIT/0.5 ML ML SQ SCH ×3 (11:30→21:11)
[2020-07-31] MEDS ORDERED: INSULIN -REGULAR HUMAN 50 UNIT/0.5 ML ML ONE (14:08)
--- NOTE | 2020-07-31 15:55 | CON ---
Date of Consultation: 07/31/2020 Reason For Consultation: Chest pain. History Of Present Illness: 70-year-old female very well known to me with nonischemic cardiomyopathy , presented with shortness of breath and chest pain, has history diabetes. The patient had normal co ronary angiogram back in May. She had an infection of COVID-19 and had a prolonged hospital sta y. It was felt that she had a takotsubo cardiomyopathy with apical thrombus and started on anticoagu lant and presented again with some chest discomfort that is atypical with shortness of breath. Past Medical History: Diabetes, hypertension, hypothyroidism, congestive heart failure. Medications: Refer to reconciliation sheet for detailed list. Allergies: NO KNOWN DRUG ALLERGIES. Family History: No premature coronary disease or cancer. Social History: Does not smoke or drink. Does not use any drugs. Review of Systems: All systems reviewed and they were negative except for what mentioned in the HPI. Physical Examination: Vital Signs: Temperature is 97.8, pulse 78, breathing at 18, blood pressure is 96/62, saturating 98% on room air. General: Pleasant elderly female, in no apparent distress. Head and Neck: Pupils are equal, reactive to light. Intact eye movements. No JVD. No cervical lym phadenopathy. Neck: Supple. Thyroid is not enlarged. Lungs: Clear to auscultation bilaterally. No rhonchi, rales, or crackles. No accessory muscle use. Heart: Regular rate and rhythm. No extra sounds. Abdomen: Soft, nontender. Bowel sounds positive. No organomegaly. No masses or hernia. No rigidi ty or rebound. Extremities: No clubbing, cyanosis. Intact pulses. SKIN: No rashes. Neurologic: Alert, awake, oriented x3. No acute focal deficits appreciated. Lymph Nodes: No cervical lymphadenopathy. Investigations: Heart catheterization on June 02, 2020, EF was severely depressed, 25% to 30% wi th normal coronary arteries. Assessment And Plan: 1.Chest pain with elevated troponin, has non-ST elevation myocardial infarction. This patient had a normal coronary angiogram very recently. This could be thrombotic in nature. Recommend IV anticoag ulation. Obtain echocardiogram and trend troponin. Start on IV diuretics. Monitor BUN, creatinine, electrolytes. 2.Severe congestive heart failure. Start IV diuretics as above and repeat echocardiogram. SR/MODL Voice ID: [id number] Report ID: [id number]
[2020-07-31] MEDS ORDERED: WARFARIN SODIUM 2 MG TAB PO SCH (17:00)
[2020-07-31] MEDS: FUROSEMIDE 20 MG/ 2ML VIAL IV SCH (17:33)
--- NOTE | 2020-07-31 17:40 | P.PN ---
Subjective Date of Service: 07/31/20 Chief Complaint: NSTEMI, Unstable angina Subjective: Improving Physical Examination - Vital Signs Temperature: 97.8 F Blood Pressure: 118/65 Pulse: 74 Respirations: 18 Pulse Ox (%): 98 - Physical Exam General: Alert, Cooperative HEENT: Atraumatic Neck: Supple Respiratory: Clear to auscultation bilaterally, Normal air movement Cardiovascular: Normal pulses, Regular rate/rhythm Gastrointestinal: Normal bowel sounds Neurological: Normal speech, Normal strength at 5/5 x4 extr, Normal tone, Normal affect - Studies Laboratory Data (last 24 hrs) 07/31/20 11:05: Troponin I 1.44 H* 07/31/20 04:55: Sodium 134 L, Potassium 4.8, BUN 35 H, Creatinine 1.28, Glucose 281 H, Troponin I 1.39 H* 07/31/20 04:55: WBC 6.0, Hgb 8.2 L, Hct 26.7 L, Plt Count 369 07/31/20 00:30: PT 17.1 H, INR 1.46 07/31/20 00:30: WBC 6.8 D, Hgb 8.4 L, Hct 26.4 L, Plt Count 375 D 07/31/20 00:30: Sodium 134 L, Potassium 4.7, BUN 34 H, Creatinine 1.30, Glucose 247 H, Magnesium 1.5 L, Total Bilirubin 0.6, AST 12 L, ALT 13, Alkaline Phosphatase 55 Medications List Reviewed: Yes Assessment & Plan Discharge Plan: Home Plan to discharge in: 24 Hours Physician Review Additional Text: Assessment NSTEMI, unstable angina: Acute on chronic systolic 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 Patient had heart catheterization in late May 2020 which was clean, do not anticipate heart catheterization. Will trend troponins, cardiology consult in place. Acute on chronic systolic congestive heart failure with mural thrombus of cardiac apex: Increase Lasix dose, patient takes Coumadin which has been starte d that INR is again sub therapeutic as she did not take bridges dose of Lovenox and discharge, continue with full-dose Lovenox. Diabetes mellitus type 2: A.c. HS Accu-Cheks, sliding scale insulin therapy. COVID 19+: Does not appear to be symptomatic any longer although she is still testing positive, initially tested positive in May 2020 GERD: Continue Pepcid Hypothyroidism: Obtain and continue home medication. Case discussed with cardiology. Cardiology recommends continue diuresis. P atient with significant systolic congestive heart failure. Continue Lovenox and Coumadin. Patient will likely need to continue with Coumadin at discharge. Patient was taking Eliquis. This may not be indicated for this. Patient remains positive for COVID but asymptomatic. Time Spent Managing Pts Care (In Minutes): 55
[2020-07-31] MEDS ORDERED: ATORVASTATIN 40 MG TAB PO SCH (21:00)
[2020-07-31] MEDS: carvediloL 3.125 MG TAB PO SCH (21:00)
[2020-07-31] MEDS: ATORVASTATIN 20 MG TAB PO SCH (21:09)
[2020-07-31] MEDS: INSULIN GLARGINE 100 UNITS/ML SQ SCH (21:10)
[2020-07-31] MEDS: ACETAMINOPHEN 500 MG TAB PO PRN (23:18)
[2020-07-31] MEDS ORDERED: TRAMADOL HCL 50 MG TAB PO ONE (23:36)
[2020-08-01] MEDS: LEVOTHYROXINE SOD 0.125 MG TAB PO SCH (06:31)
[2020-08-01 06:32] LABS: Absolute Lymphocytes (CBC) 2.2 K/uL (0.7-4.9); Basophils % 1.1 % (0-1.3); Hematocrit 29.2 % (36.0-45.0); Lymphocytes % 30.5 % (15.3-44.8); MPV 9.4 fL (7.6-11.3); RBC Red Blood Cell Count 3.63 M/uL (3.86-4.86)
[2020-08-01 06:40] LABS: Magnesium 1.8 mg/dL (1.8-2.4); Potassium 4.5 mmol/L (3.5-5.1)
[2020-08-01] MEDS: HEPARIN/D5W 25,000 UNIT/500 ML BAG IV SCH (06:42)
[2020-08-01 06:55] LABS: Protime INR 1.02
[2020-08-01] MEDS: INSULIN -REGULAR HUMAN 50 UNIT/0.5 ML ML SQ SCH ×4 (07:30→20:02)
[2020-08-01] MEDS: FAMOTIDINE 20 MG TAB PO SCH (08:34)
[2020-08-01] MEDS: SPIRONOLACTONE 25 MG TABLET PO SCH (08:34)
[2020-08-01] MEDS: DULOXETINE 20 MG CAP PO SCH (08:34)
[2020-08-01] MEDS: carvediloL 3.125 MG TAB PO SCH ×2 (08:35→20:03)
[2020-08-01] MEDS: FUROSEMIDE 20 MG/ 2ML VIAL IV SCH ×2 (08:36→16:35)
[2020-08-01] MEDS ORDERED: DIPHENOX/ATROP SULF 1 TAB PO PRN (09:31)
--- NOTE | 2020-08-01 09:31 | P.PN ---
Subjective Date of Service: 08/01/20 Chief Complaint: NSTEMI, Unstable angina Subjective: Improving, Doing well Physical Examination - Vital Signs Temperature: 98.0 F Blood Pressure: 122/72 Pulse: 81 Respirations: 16 Pulse Ox (%): 91 - Physical Exam General: Alert, In no apparent distress, Oriented x3, Cooperative HEENT: Atraumatic Neck: Supple Respiratory: Clear to auscultation bilaterally, Normal air movement Cardiovascular: Normal pulses, Regular rate/rhythm Gastrointestinal: No guarding Neurological: Normal speech, Normal strength at 5/5 x4 extr, Normal tone, Normal affect - Studies Laboratory Data (last 24 hrs) 07/31/20 11:05: Troponin I 1.44 H* Medications List Reviewed: Yes Assessment & Plan Discharge Plan: Other (Home with home health versus skilled placement) Plan to discharge in: 24 Hours Physician Review Additional Text: Assessment Chest pain suspicious for NSTEMI may be related to left ventricular thrombus Acute on chronic systolic CHF with EF of 35% complicated with left ventricular thrombus on chronic anti coagulation therapy Diabetes mellitus type 2 GERD Hypothyroidism Asymptomatic positive COVID 19 Anemia chronic disease likely underlying iron deficiency anemia Chronic renal disease stage III Hypertension Hyperlipidemia Plan: Chest pain suspicious for NSTEMI may be related to left ventricular thrombus: Patient without chest pain at this time. Case discussed in detail with cardiology. Patient with recent heart catheterization showing normal coronaries. Prior troponin reviewed. Elevated troponin may be related to left ventricular thrombus. Cardiology recommends to check echocardiogram to further evaluate. Patient had been on Coumadin in the past then switched over to Eliquis. Diagonal medication for this condition will be Coumadin. Patient currently on heparin drip and Coumadin. Dc heparin once INR above 2.0. Maintain between 2.0 and 3.0. Will ambulate patient. Patient reports limited help at home. Patient prefers to go to a skilled facility to continue current care. Will discuss with adoption social worker to see what options the patient may have. Patient has been diuresed. Patient improved. If patient not able to go to skilled facility then will consider discharging home with continued diuretic therapy, Coumadin and close follow-up and monitoring of INR. Will recess patient again today after Cardiology recommendations. Acute on chronic systolic CHF with EF of 35% complicated with left ventricular thrombus on chronic anti coagulation therapy: Continue with diuresis. Teach on 1500 cc per day fluid restriction. Repeat echo to evaluate ejection fraction and thrombus again. Cardiology recommends Coumadin instead of Eliquis. Currently on heparin drip until INR therapeutic. Await recommendations by Cardiology. Diabetes mellitus type 2: Continue Accu-Cheks. Sliding scale in place. Continue glipizide. Will recommend to discontinue metformin due to chronic renal disease. Patient on basal insulin at this time during this hospitalization. GERD: Continue medication Pepcid. Hypothyroidism: Continue medication levothyroxine Asymptomatic positive COVID 19: Patient afebrile. Room-air saturations within normal range. Patient likely not contagious. Anemia chronic disease likely underlying iron deficiency anemia: Continue iron supplementation. Monitor this closely. Chronic renal disease stage III: Overall stable. No changes at this time. Recommend no further use of nonsteroidal anti-inflammatories. Future medications will need to be renally dose. Hypertension: Continue carvedilol Hyperlipidemia: Continue Lipitor Time Spent Managing Pts Care (In Minutes): 55
--- NOTE | 2020-08-01 11:51 | ECHO ---
HEIGHT: 5 ft 5 in WEIGHT: 150 lb 0.04 oz DATE OF STUDY: 08/01/[address]: Sumit Arriaza DO 2-DIMENSIONAL: YES M.MODE: YES DOPPLER: NO COLOR FLOW: NO TDS: NO PORTABLE: NO DEFINITY: NO BUBBLE STUDY: NO DIAGNOSIS: EVALUATE EJECTION FRACTION AND THROMBUS CARDIAC HISTORY: CATHERIZATION: NO SURGERY: NO PROSTHETIC VALVE: NO PACEMAKER: NO MEASUREMENTS (cm) DIASTOLIC (NORMALS) SYSTOLIC (NORMALS) IVSd 1.0 (0.6-1.2) LA Diam 4.2 (1.9-4.0) LVEF 35% LVIDd 5.8 (3.5-5.7) LVIDs 4.8 (2.0-3.5) %FS 17% LVPWd 1.3 (0.6-1.2) Ao Diam 2.8 (2.0-3.7) 2 DIMENSIONAL ASSESSMENT: RIGHT ATRIUM: LEFT ATRIUM: RIGHT VENTRICLE: LEFT VENTRICLE: TRICUSPID VALVE: MITRAL VALVE: PULMONIC VALVE: AORTIC VALVE: PERICARDIAL EFFUSION: AORTIC ROOT: LEFT VENTRICULAR WALL MOTION: DOPPLER/COLOR FLOW: COMMENTS: FOCUSED STUDY. LEFT VENTRICULAR EJECTION FRACTION IS MODERATELY DEPRESSED 30-35%. APICAL DYSKINESIS. NORMAL LEFT VENTRICULAR THROMBUS IS SEEN ON THIS STUDY. RECOMMEND CONTRAST ECHO. TECHNOLOGIST: SEBASTIEN COMBS
--- NOTE | 2020-08-01 13:33 | P.PN ---
Subjective Date of Service: 08/01/20 Chief Complaint: NSTEMI, Unstable angina Subjective: Improving (Patient has concerns in going home.) Physical Examination - Vital Signs Temperature: 98.4 F Blood Pressure: 121/71 Pulse: 75 Respirations: 20 Pulse Ox (%): 98 - Physical Exam General: Alert, In no apparent distress, Oriented x3, Cooperative HEENT: Atraumatic Neck: Supple Respiratory: Clear to auscultation bilaterally, Normal air movement Cardiovascular: Normal pulses, Regular rate/rhythm Gastrointestinal: Normal bowel sounds, Soft and benign, Non-distended, No m asses, No rebound, No guarding Neurological: Normal speech, Normal strength at 5/5 x4 extr, Normal tone, Normal affect - Studies Medications List Reviewed: Yes Assessment & Plan Discharge Plan: Other (SNF) Plan to discharge in: 72 Hours Physician Review Additional Text: Assessment Chest pain suspicious for NSTEMI may be related to left ventricular thrombus Acute on chronic systolic CHF with EF of 35% complicated with left ventricular thrombus on chronic anti coagulation therapy Diabetes mellitus type 2 GERD Hypothyroidism Asymptomatic positive COVID 19 Anemia chronic disease likely underlying iron deficiency anemia Chronic renal disease stage III Hypertension Hyperlipidemia Plan: Chest pain suspicious for NSTEMI may be related to left ventricular thrombus: Patient without chest pain at this time. Patient doing well. Repeat echo still shows ventricular thrombus. EF around 30%. Cardiology recommends contrast echo. This cannot be done here. This likely can be done as an outpatient. No need for heart catheterization at this time. Prior heart catheterization was normal. INR still subtherapeutic. Will continue with heparin. Will increase Coumadin to 3 mg daily. Continue to adjust and monitor. Patient wishes to go to a skilled facility to continue her care. Will have social organization professor help with this. Continue diuresis as recommended by Cardiology. Will monitor closely. Anticipate possible skilled placement on Tuesday. I will turn the service over to the hospitalist team tomorrow. I will go plan of care with him. Acute on chronic systolic CHF with EF of 35% complicated with left ventricular thrombus on chronic anti coagulation therapy: Continue with diuresis. Teach on 1500 cc per day fluid restriction. Repeat echo shows ejection fraction around 30-35%. Thrombus still visualize. Continue as above with heparin until Coumadin is therapeutic. Coumadin it is indicated for the thrombus at this time. She cannot take Eliquis. This was recommended by Cardiology. Diabetes mellitus type 2: Continue Accu-Cheks. Sliding scale in place. Continue glipizide. Will recommend to discontinue metformin due to chronic renal disease. Patient on basal insulin at this time during this hospitalization. GERD: Continue medication Pepcid. Hypothyroidism: Continue medication levothyroxine Asymptomatic positive COVID 19: Patient afebrile. Room-air saturations within normal range. Patient likely not contagious. Anemia chronic disease likely underlying iron deficiency anemia: Continue iron supplementation. Monitor this closely. Chronic renal disease stage III: Overall stable. No changes at this time. Recommend no further use of nonsteroidal anti-inflammatories. Future medications will need to be renally dose. Hypertension: Continue carvedilol Hyperlipidemia: Continue Lipitor Time Spent Managing Pts Care (In Minutes): 55
[2020-08-01] MEDS: glipiZIDE 5 MG TAB PO SCH (16:35)
[2020-08-01] MEDS ORDERED: WARFARIN SODIUM 2 MG TAB PO SCH (17:00)
[2020-08-01] MEDS: MELATONIN 3 MG TABLET PO SCH (20:03)
[2020-08-01] MEDS: ENSURE HIGH PROTEIN 237 ML CAN PO SCH (20:03)
[2020-08-01] MEDS: ATORVASTATIN 20 MG TAB PO SCH (20:03)
[2020-08-01] MEDS: INSULIN GLARGINE 100 UNITS/ML SQ SCH (20:19)
[2020-08-02] MEDS: ONDANSETRON 4 MG/2 ML VIAL IV PRN ×2 (01:26→20:16)
[2020-08-02] MEDS: LEVOTHYROXINE SOD 0.125 MG TAB PO SCH (05:31)
[2020-08-02] MEDS: INSULIN -REGULAR HUMAN 50 UNIT/0.5 ML ML SQ SCH ×4 (07:30→20:27)
[2020-08-02 07:51] LABS: MPV 9.7 fL (7.6-11.3)
[2020-08-02 07:56] LABS: Magnesium 1.7 mg/dL (1.8-2.4); Potassium 4.1 mmol/L (3.5-5.1)
[2020-08-02] MEDS: FAMOTIDINE 20 MG TAB PO SCH (08:28)
[2020-08-02] MEDS: SPIRONOLACTONE 25 MG TABLET PO SCH (08:28)
[2020-08-02] MEDS: FUROSEMIDE 20 MG/ 2ML VIAL IV SCH ×3 (08:28→16:52)
[2020-08-02] MEDS: DULOXETINE 20 MG CAP PO SCH (08:28)
[2020-08-02] MEDS: glipiZIDE 5 MG TAB PO SCH ×2 (08:28→16:48)
[2020-08-02] MEDS: ENSURE HIGH PROTEIN 237 ML CAN PO SCH ×2 (08:32→20:26)
[2020-08-02] MEDS: carvediloL 3.125 MG TAB PO SCH ×2 (08:32→20:26)
[2020-08-02] MEDS ORDERED: HOME MED 1 EA UNK (Lovastatin [Altoprev] 40 MG Tab.Er.24h) PO SCH (09:00)
[2020-08-02 09:04] LABS: Platelet Estimate ADEQ
[2020-08-02] MEDS ORDERED: MORPHINE 2 MG/ML SYR IV ONE (09:28)
[2020-08-02] MEDS ORDERED: MORPHINE 2 MG/ML SYR IV PRN (10:53)
--- NOTE | 2020-08-02 11:00 | P.PN ---
Subjective Date of Service: 08/02/20 Chief Complaint: NSTEMI, Unstable angina Subjective: New changes (- c/o of chest pain, left sided , rate 5/10 - staff report new atrial fib on tele - Patient denies any palpitations), C/O voiced Physical Examination - Vital Signs Temperature: 97.8 F Blood Pressure: 102/66 Pulse: 77 Respirations: 18 Pulse Ox (%): 93 - Physical Exam General: Alert, In no apparent distress, Oriented x3, Cooperative HEENT: Atraumatic, Normocephalic, PERRLA, Mucous membr. moist/pink Neck: Supple, 2+ carotid pulse no bruit, JVD not distended Respiratory: Normal air movement, Diminished Cardiovascular: Normal pulses, Regular rate/rhythm, Normal S1 S2 Gastrointestinal: Normal bowel sounds, Soft and benign, Non-distended Musculoskeletal: No clubbing, No swelling Integumentary: No rashes, No breakdown External genitalia: No edema, No lesions - Studies Laboratory Tests 07/31/20 07/31/20 07/31/20 00:30 00:30 00:30 WBC 6.8 D RBC 3.31 L Hgb 8.4 L Hct 26.4 L MCV 79.6 L MCH 25.4 L MCHC 32.0 RDW 17.9 H Plt Count 375 D MPV 9.0 Neutrophils % 81.2 H Lymphocytes % 12.2 L Monocytes % 6.4 Eosinophils % 0.0 Basophils % 0.2 Absolute Neutrophils 5.5 Absolute Lymphocytes 0.8 Absolute Monocytes 0.4 Absolute Eosinophils 0.0 Absolute Basophils 0.0 PT 17.1 H INR 1.46 Sodium 134 L Potassium 4.7 Chloride 99 Carbon Dioxide 27 BUN 34 H Creatinine 1.30 Estimated GFR 40 L Glucose 247 H POC Glucose Calcium 9.4 Magnesium 1.5 L Total Bilirubin 0.6 Direct Bilirubin 0.2 AST 12 L ALT 13 Alkaline Phosphatase 55 Rapid Troponin I 1.49 H* Troponin I NT-Pro-B Natriuret Pep 01005 H Serum Total Protein 7.0 Albumin 3.0 L Globulin 4.0 H Albumin/Globulin Ratio 0.8 L SARS-CoV-2 RNA (RT-PCR) 07/31/20 07/31/20 07/31/20 04:55 04:55 05:35 WBC 6.0 RBC 3.31 L Hgb 8.2 L Hct 26.7 L MCV 80.5 MCH 24.9 L MCHC 30.9 L RDW 17.8 H Plt Count 369 MPV 9.3 Neutrophils % 80.1 H Lymphocytes % 13.7 L Monocytes % 5.9 Eosinophils % 0.0 Basophils % 0.3 Absolute Neutrophils 4.8 Absolute Lymphocytes 0.8 Absolute Monocytes 0.4 Absolute Eosinophils 0.0 Absolute Basophils 0.0 PT INR Sodium 134 L Potassium 4.8 Chloride 99 Carbon Dioxide 29 BUN 35 H Creatinine 1.28 Estimated GFR 41 L Glucose 281 H POC Glucose Calcium 9.2 Magnesium Total Bilirubin Direct Bilirubin AST ALT Alkaline Phosphatase Rapid Troponin I Troponin I 1.39 H* NT-Pro-B Natriuret Pep Serum Total Protein Albumin Globulin Albumin/Globulin Ratio SARS-CoV-2 RNA (RT-PCR) Positive A 07/31/20 07/31/20 07/31/20 08:25 11:05 11:06 WBC RBC Hgb Hct MCV MCH MCHC RDW Plt Count MPV Neutrophils % Lymphocytes % Monocytes % Eosinophils % Basophils % Absolute Neutrophils Absolute Lymphocytes Absolute Monocytes Absolute Eosinophils Absolute Basophils PT INR Sodium Potassium Chloride Carbon Dioxide BUN Creatinine Estimated GFR Glucose POC Glucose 227 H 255 H Calcium Magnesium Total Bilirubin Direct Bilirubin AST ALT Alkaline Phosphatase Rapid Troponin I Troponin I 1.44 H* NT-Pro-B Natriuret Pep Serum Total Protein Albumin Globulin Albumin/Globulin Ratio SARS-CoV-2 RNA (RT-PCR) Medications List Reviewed: Yes Assessment & Plan Physician Review: Patient Assessed, Agree with Above Assessment and Plan Physician Review Additional Text: Assessment Chest pain suspicious for NSTEMI may be related to left ventricular thrombus Acute on chronic systolic CHF with EF of 35% complicated with left ventricular thrombus on chronic anti coagulation therapy Diabetes mellitus type 2 GERD Hypothyroidism Asymptomatic positive COVID 19 Anemia chronic disease likely underlying iron deficiency anemia Chronic renal disease stage III Hypertension Hyperlipidemia Atrial fib Hypomagnesemia Plan: Chest pain suspicious for NSTEMI may be related to left ventricular thrombus: recurrent , unrelieved by nitrate -will dose Morphine now -repeat Troponin level - if rising level , will obtain cardiology reval , Prior cath was nornal coronaries -c/w diuresis -may be due to persistent LV thrombus -continue heparin gtt -INR still subtherapeutic , increase Coumadin dose to 10 mg daily for now -Patient wishes to go to a skilled facility to continue her care. Will have social work therapist help with this. Will monitor closely. Anticipate possible sk illed placement on Tuesday. Atrial fib - recurrent , continue anticoagulation , rate control now Hypomagnesemia- will replete with 2 g IV mg s04 now Acute on chronic systolic CHF with EF of 35% complicated with left ventricular thrombus on chronic anti coagulation therapy: Continue with diuresis. Teach on 1500 cc per day fluid restriction. Repeat echo shows ejection fraction around 30-35%. Thrombus still visualize. Continue as above with heparin until Coumadin is therapeutic. Coumadin it is indicated for the thrombus at this time. She cannot take Eliquis. This was recommended by Cardiology. Diabetes mellitus type 2: Continue Accu-Cheks. Sliding scale in place. Continue glipizide. Will recommend to discontinue metformin due to chronic renal disease. Patient on basal insulin at this time during this hospitalization. GERD: Continue medication Pepcid. Hypothyroidism: Continue medication levothyroxine Asymptomatic positive COVID 19: Patient afebrile. Room-air saturations within normal range. Patient likely not contagious. Anemia chronic disease likely underlying iron deficiency anemia: Continue iron supplementation. Monitor this closely. Chronic renal disease stage III: Overall stable. No changes at this time. Recommend no further use of nonsteroidal anti-inflammatories. Future medications will need to be renally dose. Hypertension: Continue carvedilol Hyperlipidemia: Continue Lipitor
[2020-08-02] MEDS: HEPARIN/D5W 25,000 UNIT/500 ML BAG IV SCH (11:12)
[2020-08-02] MEDS ORDERED: MAGNESIUM SULFATE 1 gm IVPB 1 GM/100 ML BAG IV ONE ×2 (14:36→15:00)
[2020-08-02] MEDS ORDERED: Magnesium Sulfate 2gm IVPB 2 G/50 ML BAG IV ONE (15:00)
[2020-08-02] MEDS ORDERED: WARFARIN SODIUM 2 MG TAB PO SCH (17:00)
[2020-08-02] MEDS: WARFARIN SODIUM 5 MG TAB PO SCH (17:13)
[2020-08-02] MEDS: INSULIN GLARGINE 100 UNITS/ML SQ SCH (20:26)
[2020-08-02] MEDS: ATORVASTATIN 20 MG TAB PO SCH (20:27)
[2020-08-02] MEDS: MELATONIN 3 MG TABLET PO SCH (20:27)
[2020-08-02] MEDS ORDERED: LORazepam 2 MG/ML VIAL IV ONE (23:33)
[2020-08-03 02:12] LABS: MPV 9.1 fL (7.6-11.3)
[2020-08-03 02:35] LABS: Protime INR 0.98
[2020-08-03 02:37] LABS: Magnesium 1.9 mg/dL (1.8-2.4); Potassium 4.4 mmol/L (3.5-5.1)
[2020-08-03 02:38] LABS: Troponin I 1.49 ng/mL (0.0-0.045)
[2020-08-03 02:59] LABS: Platelet Estimate ADEQ; Platelets, Giant FEW
[2020-08-03] MEDS: LEVOTHYROXINE SOD 0.125 MG TAB PO SCH (05:12)
[2020-08-03] MEDS: FAMOTIDINE 20 MG TAB PO SCH (08:47)
[2020-08-03] MEDS: INSULIN -REGULAR HUMAN 50 UNIT/0.5 ML ML SQ SCH ×4 (08:48→20:41)
[2020-08-03] MEDS: glipiZIDE 5 MG TAB PO SCH ×2 (08:48→16:02)
[2020-08-03] MEDS: SPIRONOLACTONE 25 MG TABLET PO SCH (08:48)
[2020-08-03] MEDS: carvediloL 3.125 MG TAB PO SCH ×2 (08:48→20:41)
[2020-08-03] MEDS: DULOXETINE 20 MG CAP PO SCH (08:48)
[2020-08-03] MEDS: FUROSEMIDE 20 MG/ 2ML VIAL IV SCH (08:49)
[2020-08-03] MEDS: ENSURE HIGH PROTEIN 237 ML CAN PO SCH ×2 (08:49→20:42)
[2020-08-03] MEDS ORDERED: Magnesium Sulfate 2gm IVPB 2 G/50 ML BAG IV ONE (11:07)
--- NOTE | 2020-08-03 12:59 | P.PN ---
Subjective Date of Service: 08/03/20 Chief Complaint: Congestive heart failure left ventricular thrombus Subjective: Improving (Patient is doing better no new complaints she has been anti coagulated he is on warfarin) Review of Systems 10-point ROS is otherwise unremarkable Physical Examination - Vital Signs Temperature: 97.9 F Blood Pressure: 121/66 Pulse: 70 Respirations: 16 Pulse Ox (%): 96 - Physical Exam General: Alert, Oriented x3 Respiratory: Clear to auscultation bilaterally Cardiovascular: No edema, Normal S1 S2 - Studies Medications List Reviewed: Yes Assessment & Plan - Problems (Diagnosis) (1) CHF (congestive heart failure) Current Visit: No Status: Acute Plan: Patient is 70 years of age has severe congestive heart failure with left ventricular thrombus plan is to continue with the heparin and she with therapeutic INR with Coumadin and plan to transfer her to a long-term care facility otherwise doing well no new complaints renal function is normal the stitch over to Lovenox vital signs oxygenation stable. Patient happens to be bullard virus positive discuss with cardiology Dc heparin change to Lovenox currently on warfarin patient is also on spironolactone Qualifiers: Heart failure type: combined systolic and diastolic Heart failure chronicity: acute Qualified Code(s): I50.41 - 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) heart failure Physician Review: Patient Assessed, Agree with Above Assessment and Plan Physician Review Additional Text: Assessment Chest pain suspicious for NSTEMI may be related to left ventricular thrombus
[2020-08-03] MEDS: ENOXAPARIN 80 MG/0.8 ML SQ SCH (13:21)
[2020-08-03] MEDS: WARFARIN SODIUM 5 MG TAB PO SCH (16:02)
[2020-08-03] MEDS: TRAMADOL HCL 50 MG TAB PO PRN (18:31)
[2020-08-03] MEDS: ATORVASTATIN 20 MG TAB PO SCH (20:39)
[2020-08-03] MEDS: MELATONIN 3 MG TABLET PO SCH (20:39)
[2020-08-03] MEDS: INSULIN GLARGINE 100 UNITS/ML SQ SCH (20:46)
[2020-08-03] MEDS: ACETAMINOPHEN 500 MG TAB PO PRN (20:52)
[2020-08-04 04:28] LABS: Absolute Lymphocytes (CBC) 2.4 K/uL (0.7-4.9); Basophils % 0.6 % (0-1.3); Hematocrit 26.8 % (36.0-45.0); Lymphocytes % 31.8 % (15.3-44.8); MPV 9.8 fL (7.6-11.3); Protime INR 1.12; RBC Red Blood Cell Count 3.41 M/uL (3.86-4.86)
[2020-08-04] MEDS: LEVOTHYROXINE SOD 0.125 MG TAB PO SCH (07:18)
[2020-08-04] MEDS: INSULIN -REGULAR HUMAN 50 UNIT/0.5 ML ML SQ SCH ×4 (07:29→20:43)
[2020-08-04] MEDS: SPIRONOLACTONE 25 MG TABLET PO SCH (08:03)
[2020-08-04] MEDS: carvediloL 3.125 MG TAB PO SCH ×2 (08:03→20:45)
[2020-08-04] MEDS: glipiZIDE 5 MG TAB PO SCH ×2 (08:03→16:07)
[2020-08-04] MEDS: FAMOTIDINE 20 MG TAB PO SCH (08:03)
[2020-08-04] MEDS: DULOXETINE 20 MG CAP PO SCH (08:03)
[2020-08-04] MEDS: ENOXAPARIN 80 MG/0.8 ML SQ SCH ×2 (08:04→20:44)
[2020-08-04] MEDS: ENSURE HIGH PROTEIN 237 ML CAN PO SCH ×2 (08:04→20:46)
[2020-08-04] MEDS: FUROSEMIDE 40 MG TABLET PO SCH (08:04)
[2020-08-04] MEDS: TRAMADOL HCL 50 MG TAB PO PRN (09:53)
[2020-08-04] MEDS: ONDANSETRON 4 MG/2 ML VIAL IV PRN ×2 (09:53→23:13)
[2020-08-04] MEDS ORDERED: D50W 25 GM/50 ML VIAL IV PRN (14:49)
[2020-08-04] MEDS: WARFARIN SODIUM 5 MG TAB PO SCH (16:07)
[2020-08-04] MEDS: INSULIN GLARGINE 100 UNITS/ML SQ SCH (20:42)
[2020-08-04] MEDS: MELATONIN 3 MG TABLET PO SCH (20:44)
[2020-08-04] MEDS: ATORVASTATIN 20 MG TAB PO SCH (20:45)
[2020-08-05] MEDS: TRAMADOL HCL 50 MG TAB PO PRN ×2 (03:21→20:57)
[2020-08-05 04:03] LABS: Protime INR 1.7
[2020-08-05 04:12] VITALS: O2SAT 97
[2020-08-05] MEDS: LEVOTHYROXINE SOD 0.125 MG TAB PO SCH (05:06)
[2020-08-05] MEDS: INSULIN -REGULAR HUMAN 50 UNIT/0.5 ML ML SQ SCH ×4 (07:30→20:54)
[2020-08-05] MEDS: ENOXAPARIN 80 MG/0.8 ML SQ SCH ×2 (08:44→20:56)
[2020-08-05] MEDS: FAMOTIDINE 20 MG TAB PO SCH (08:45)
[2020-08-05] MEDS: FUROSEMIDE 40 MG TABLET PO SCH (08:45)
[2020-08-05] MEDS: DULOXETINE 20 MG CAP PO SCH (08:45)
[2020-08-05] MEDS: glipiZIDE 5 MG TAB PO SCH ×2 (08:45→16:38)
[2020-08-05] MEDS: SPIRONOLACTONE 25 MG TABLET PO SCH (08:45)
[2020-08-05] MEDS: carvediloL 3.125 MG TAB PO SCH ×2 (08:46→20:52)
[2020-08-05] MEDS: ENSURE HIGH PROTEIN 237 ML CAN PO SCH ×2 (08:47→20:53)
--- NOTE | 2020-08-05 09:47 | P.PN ---
Subjective Date of Service: 08/04/20 Patient with numerous concerns about going home. She has cardiomyopathy with an ejection fraction of 30-35%. She had a left ventricular thrombus which she is still requiring Lovenox subcu twice a day. She gets very short of breath on light ambulation. She has been working with physical therapy. She is concerned with going home but at this time I will speak with physical therapy and have them see how patient is doing clinically. If she is doing well from an ambulatory point of view and she does not really meet anion medical necessity requirements to go to a half-way facility then I may be having to discharge her home with home health who will have to assist with her care at the house. Family will hopefully also be able to help out. Patient did received the 1st vaccine before the end of June. She clinically is doing well with her pneumonia in her oxygen saturations are very stable. Review of Systems 10-point ROS is otherwise unremarkable Physical Examination - Vital Signs Temperature: 97.4 F Blood Pressure: 106/63 Pulse: 69 Respirations: 16 Pulse Ox (%): 97 - Physical Exam General: Alert, In no apparent distress, Oriented x3 HEENT: Atraumatic, PERRLA, EOMI Neck: Supple, JVD not distended Respiratory: Clear to auscultation bilaterally, Normal air movement Cardiovascular: Regular rate/rhythm, Normal S1 S2 Gastrointestinal: Normal bowel sounds, No tenderness Musculoskeletal: No tenderness Integumentary: No rashes Neurological: Normal speech, Normal tone, Normal affect Lymphatics: No axilla or inguinal lymphadenopathy - Studies Microbiology Data (last 24 hrs): 07/31/20 00:30 Blood - Blood Aerobic Blood Culture - Final No growth in 5 days. 07/31/20 00:30 Blood - Blood Anaerobic Blood Culture - Final No growth in 5 days. 07/31/20 00:30 Blood - Blood Aerobic Blood Culture - Final No growth in 5 days. 07/31/20 00:30 Blood - Blood Anaerobic Blood Culture - Final No growth in 5 days. Medications List Reviewed: Yes Assessment & Plan - Problems (Diagnosis) (1) Cardiomyopathy Status: Acute (2) CHF (congestive heart failure) Status: Acute Qualifiers: Heart failure type: combined systolic and diastolic Heart failure chronicity: acute Qualified Code(s): I50.41 - 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) heart failure (3) COVID-19 virus infection Status: Acute (4) LV (left ventricular) mural thrombus Status: Acute (5) Pneumonia due to COVID-19 virus Status: Acute - Plan Plan: 1. Physical therapy evaluation 2. Spoke with pediatric social worker and may not be able to qualify for half-way facility placement 3. Continue with Lovenox twice a day 4. Monitor cardiac status closely 5. Outpatient cardiology follow-up 6. Continue with cardiac meds including diuretics 7. Repeat echocardiogram in 12 weeks 8. GI and DVT prophylaxis Discharge Plan: Home Plan to discharge in: Greater than 2 days - Advance Directives Does patient have a Living Will: No Does patient have a Durable POA for Healthcare: No - Code Status/Comfort Care Code Status: Full Code Physician Review: Patient Assessed, Agree with Above Assessment and Plan Critical Care: No Time Spent Managing PTS Care (In Minutes): 35
[2020-08-05] MEDS: ACETAMINOPHEN 500 MG TAB PO PRN (14:50)
[2020-08-05] MEDS: WARFARIN SODIUM 5 MG TAB PO SCH (16:38)
[2020-08-05] MEDS: ATORVASTATIN 20 MG TAB PO SCH (20:52)
[2020-08-05] MEDS: INSULIN GLARGINE 100 UNITS/ML SQ SCH (20:53)
[2020-08-05] MEDS: MELATONIN 3 MG TABLET PO SCH (20:56)
[2020-08-06 04:10] LABS: Absolute Lymphocytes (CBC) 2.4 K/uL (0.7-4.9); Basophils % 1.3 % (0-1.3); Hematocrit 25.4 % (36.0-45.0); Lymphocytes % 32.6 % (15.3-44.8); MPV 9.4 fL (7.6-11.3); RBC Red Blood Cell Count 3.26 M/uL (3.86-4.86)
[2020-08-06 04:20] LABS: Albumin 2.9 g/dL (3.4-5.0); Bilirubin Total 0.4 mg/dL (0.2-1.0); Magnesium 1.7 mg/dL (1.8-2.4); Phosphorus 4.4 mg/dL (2.5-4.9); Potassium 4.3 mmol/L (3.5-5.1); Protein, Total 6.3 g/dL (6.4-8.2)
[2020-08-06 04:43] LABS: Protime INR 2.12
[2020-08-06] MEDS: LEVOTHYROXINE SOD 0.125 MG TAB PO SCH (06:36)
[2020-08-06] MEDS: INSULIN -REGULAR HUMAN 50 UNIT/0.5 ML ML SQ SCH ×3 (07:30→17:12)
[2020-08-06] MEDS ORDERED: MAGNESIUM OXIDE 400 MG TAB PO ONE (08:11)
[2020-08-06] MEDS: glipiZIDE 5 MG TAB PO SCH ×2 (08:25→17:12)
[2020-08-06] MEDS: DULOXETINE 20 MG CAP PO SCH (08:25)
[2020-08-06] MEDS: FAMOTIDINE 20 MG TAB PO SCH (08:25)
[2020-08-06] MEDS: SPIRONOLACTONE 25 MG TABLET PO SCH (08:25)
[2020-08-06] MEDS: FUROSEMIDE 40 MG TABLET PO SCH (08:25)
[2020-08-06] MEDS: carvediloL 3.125 MG TAB PO SCH (08:26)
[2020-08-06] MEDS: ENSURE HIGH PROTEIN 237 ML CAN PO SCH (08:26)
[2020-08-06] MEDS: ENOXAPARIN 80 MG/0.8 ML SQ SCH (08:32)
[2020-08-06] MEDS ORDERED: PANTOPRAZOLE 40 MG INJ IVP ONE (08:41)
[2020-08-06] MEDS ORDERED: SODIUM CHLORIDE 0.9% 10ML INJ IV PRN (08:41)
[2020-08-06] MEDS ORDERED: NA CHLORIDE 0.9% 1,000 ML IV SCH (09:00)
[2020-08-06 14:38] LABS: Absolute Lymphocytes (CBC) 1.4 K/uL (0.7-4.9); Basophils % 1.3 % (0-1.3); Hematocrit 27.6 % (36.0-45.0); MPV 9.4 fL (7.6-11.3); RBC Red Blood Cell Count 3.48 M/uL (3.86-4.86)
[2020-08-06 15:14] LABS: Folic Acid, (Folate) 17.4 ng/mL (3.1-17.5)
[2020-08-06 15:17] LABS: Potassium 5.7 mmol/L (3.5-5.1)
[2020-08-06 15:53] LABS: Blood Morphology Comment NOTED (NOT SEEN); Hypochromasia 1+; Platelet Estimate ADEQ
[2020-08-06] MEDS: WARFARIN SODIUM 5 MG TAB PO SCH (17:12)
[2020-08-13 00:13] VITALS: BP 106/63; TEMP 97.4
--- NOTE | 2020-08-13 00:18 | P.PN ---
Subjective Date of Service: 08/05/20 Patient is continued to improve with no new complaints. Clinical symptoms are improving. At this time patient is stable for discharge in the morning. Review of Systems 10-point ROS is otherwise unremarkable Physical Examination - Vital Signs Temperature: 97.4 F Blood Pressure: 106/63 Pulse: 69 Respirations: 16 Pulse Ox (%): 97 - Physical Exam General: Alert, In no apparent distress, Oriented x3 HEENT: Atraumatic, PERRLA, EOMI Neck: Supple, JVD not distended Respiratory: Clear to auscultation bilaterally, Normal air movement Cardiovascular: Regular rate/rhythm, Normal S1 S2, No murmurs Gastrointestinal: Normal bowel sounds, Soft and benign, Non-distended, No tenderness Musculoskeletal: No clubbing, No swelling, No tenderness Integumentary: No rashes Neurological: Sensation intact, Cranial nerves 3-12 intact - Studies Medications List Reviewed: Yes Assessment & Plan - Problems (Diagnosis) (1) Cardiomyopathy Status: Acute (2) CHF (congestive heart failure) Status: Acute Qualifiers: Heart failure type: combined systolic and diastolic Heart failure chronicity: acute Qualified Code(s): I50.41 - 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) heart failure (3) COVID-19 virus infection Status: Acute (4) LV (left ventricular) mural thrombus Status: Acute (5) Pneumonia due to COVID-19 virus Status: Acute - Plan Plan: Continue with current plan of care as much below 1. Physical therapy evaluation appreciated 2. Patient will not be qualified for prison facility placement. Patient is clinically doing too well. 3. Change to eliquis twice daily 4. Monitor cardiac status closely 5. Outpatient cardiology follow-up 6. Continue with cardiac meds including diuretics 7. Repeat echocardiogram in 12 weeks 8. GI and DVT prophylaxis Discharge Plan: Home Plan to discharge in: Greater than 2 days - Advance Directives Does patient have a Living Will: No Does patient have a Durable POA for Healthcare: No - Code Status/Comfort Care Code Status: Full Code Physician Review: Patient Assessed, Agree with Above Assessment and Plan Critical Care: No Time Spent Managing PTS Care (In Minutes): 35
--- NOTE | 2020-08-13 00:21 | P.DS ---
Discharge Date: 08/06/20 Disposition: ROUTINE DISCHARGE Discharge Condition: GOOD Reason for Admission: Congestive heart failure left ventricular thrombus - Problems (1) Cardiomyopathy Status: Acute (2) CHF (congestive heart failure) Status: Acute Qualifiers: Heart failure type: combined systolic and diastolic Heart failure chronicity: acute Qualified Code(s): I50.41 - 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) heart failure (3) COVID-19 virus infection Status: Acute (4) LV (left ventricular) mural thrombus Status: Acute (5) Pneumonia due to COVID-19 virus Status: Acute Brief History of Present Illness: 70-year-old female with history of systolic congestive heart failure, cardiomyopathy, angina, mural thrombus of cardiac apex, diabetes mellitus type 2 presents to the emergency department for chest pain. Patient was initially hospitalized here on 05/31/2020 for NSTEMI and had heart catheterization during her admission which demonstrated clean coronary arteries. Patient diagnosed with takotsubo cardiomyopathy in addition to mural thrombus at the cardiac apex. Patient also has systolic heart failure, last echocardiogram shows improvement of left ventricular ejection fraction to 40%. Patient was also diagnosed with COVID during that hospitalization, patient was discharged to assisted for rehab after the hospital stay. Recently patient was discharged from assisted, presented back to the emergency department on 07/24/2020 for chest pain and NSTEMI again. Patient was placed on Lovenox bridge because her INR was subtherapeutic, plan was for patient to be discharged on Lovenox for 1 week but she was unable to have home health set up and therefore did not take Lovenox at home. Patient [facility] for [facility]. Patient reports that she does have angina periodically but at this pain was more severe and came out of the blue when she was at rest. Labs in the ER significant for elevated troponin 1.49 elevated BNP 32645 hemoglobin 8.4 hematocrit 26.4 patient's hemoglobin seems to be baseline around 8-9. ED provider wishes to admit patient for further evaluation and management. Hospital Course: Patient is doing really well during hospital stay. Continue with anticoagulation. Will have home health follow with patient and check INR. Patient is ambulating quite a bit with physical therapy. At this time, patient is stable for discharge home. Vital Signs/Physical Exam: Temp Pulse Resp BP Pulse Ox 97.4 F 69 16 106/63 97 08/13/20 00:18 08/13/20 00:18 08/13/20 00:18 08/13/20 00:18 08/13/20 00:18 General: Alert, In no apparent distress, Oriented x3 Laboratory Data at Discharge: WBC 7.00 K/uL (4.3-10.9) 08/06/20 14:11 Hgb 8.5 g/dL (12.0-15.0) L 08/06/20 14:11 Hct 27.6 % (36.0-45.0) L 08/06/20 14:11 Plt Count 352 K/uL (152-406) 08/06/20 14:11 PT Cancelled 08/06/20 05:00 INR Cancelled 08/06/20 05:00 APTT 39.6 SECONDS (24.3-36.9) H 08/03/20 12:58 Sodium 135 mmol/L (136-145) L 08/06/20 14:11 Potassium 4.4 mmol/L (3.5-5.1) 08/06/20 16:42 BUN 52 mg/dL (7-18) H 08/06/20 14:11 Creatinine 1.49 mg/dL (0.55-1.3) H 08/06/20 14:11 Glucose 305 mg/dL (74-106) H 08/06/20 14:11 Phosphorus 4.4 mg/dL (2.5-4.9) 08/06/20 03:34 Magnesium 1.7 mg/dL (1.8-2.4) L 08/06/20 03:34 Total Bilirubin 0.4 mg/dL (0.2-1.0) 08/06/20 03:34 AST 9 U/L (15-37) L 08/06/20 03:34 ALT 11 U/L (12-78) L 08/06/20 03:34 Alkaline Phosphatase 47 U/L (45-117) 08/06/20 03:34 Troponin I 1.49 ng/mL (0.0-0.045) H* 08/03/20 02:06 Home Medications: Alendronate Sodium [Fosamax] 1 tab PO SEECOM #30 07/28/20 Diphenox/Atropine [Lomotil*] 1 tab PO QID PRN #30 tab 07/28/20 Duloxetine [Cymbalta *] 1 cap PO DAILY #30 cap 07/28/20 Ensure High Protein 237 ml PO BID 30 Days #60 can 07/28/20 Famotidine [Pepcid] 20 mg PO DAILY 30 Days #30 tablet 07/28/20 Furosemide [Lasix*] 20 mg PO DAILY 30 Days #30 tab 07/28/20 Levothyroxine [Synthroid*] 1 tab PO [id number] #30 tab 07/28/20 Lovastatin [Altoprev] 1 tab PO DAILY #30 07/28/20 Melatonin [Melatonin*] 3 mg PO BEDTIME 30 Days #30 tablet 07/28/20 Metformin HCl [Glucophage*] 1 tab PO BIDWM #60 tab 07/28/20 Nitroglycerin [Nitrostat*] 0.4 mg SL UD PRN #20 tab 07/28/20 Senosides [Senokot*] 17.2 mg PO BID #120 tab 07/28/20 Spironolactone [Aldactone*] 25 mg PO DAILY 30 Days #30 tab 07/28/20 Tramadol HCl [Ultram] 1 tab PO Q6H PRN #30 07/28/20 carvediloL [Carvedilol] 6.25 mg PO BID 30 Days #60 tablet 07/28/20 glipiZIDE [Glucotrol*] 1 tab PO BID #60 tab 07/28/20 Polyethyl Gly 3350 [Glycolax*] 17 gm PO DAILY PRN 07/31/20 Cyanocobalamin (Vitamin B-12) [Vitamin B12] 5,000 mcg SL DAILY #30 tab.rapdis 08/06/20 Ferrous Sulfate [Slow Release Iron] 250 mg PO BID #60 tablet.er 08/06/20 Magnesium Chloride [Slow-Mag] 64 mg PO DAILY #30 tab 08/06/20 Warfarin Sodium [Coumadin*] 5 mg PO DAILY 5 PM #30 tab 08/06/20 predniSONE [Prednisone*] 20 mg PO DAILY #6 tab 08/06/20 New Medications: Warfarin Sodium [Coumadin*] 5 mg PO DAILY 5 PM #30 tab predniSONE [Prednisone*] 20 mg PO DAILY #6 tab Ferrous Sulfate [Slow Release Iron] 250 mg PO BID #60 tablet.er Magnesium Chloride [Slow-Mag] 64 mg PO DAILY #30 tab Cyanocobalamin (Vitamin B-12) [Vitamin B12] 5,000 mcg SL DAILY #30 tab.bulmaro Physician Discharge Instructions: -OK TO DC IV AND DC HOME -FOLLOW-UP WITH PCP IN 1-2 WEEKS -FOLLOW-UP WITH CARDIOLOGY IN 1-2 WEEKS -PLEASE MAKE SURE ALL DIAGNOSTIC STUDIES ARE AVAILABLE AND HAVE BEEN REVIEWED WITH PATIENT PRIOR TO DISCHARGE -RETURN TO THE ER IF Symptoms worsen -CALL DR. OKEEFE AT [phone] IF ANY QUESTIONS REGARDING HOSPITAL STAY -PLEASE CALL THE FLOOR AT [phone] IF ANY MEDICATION OR NURSING QUESTIONS Diet: AHA Activity: Fall precautions Followup: Jonny Lopez MD [ACTIVE - CAN ADMIT] - (call to schedule appointment) Bruce Joe MD [Primary Care Provider] - (call to schedule appointment) Time spent managing pt's care (in minutes): 35
== END 2020-08-06 18:40 | disposition home or self-care (01) | DRG 280 ==
LOC: ER 23:43 → ERHOLD 07-31 02:22 → INTOOBSV 07-31 02:22 → OBSVTOIN 07-31 16:39 → 4TH 07-31 16:45
PROVIDERS: ADMIT Family Medicine; ATTEND Hospitalist
DX: I21.4 Non-ST elevation (NSTEMI) myocardial infarction (principal); U07.1 COVID-19; I50.41 Acute combined systolic (congestive) and diastolic (congestive) heart failure; J12.82 Pneumonia due to coronavirus disease 2019; I42.8 Other cardiomyopathies; I13.0 Hypertensive heart and chronic kidney disease with heart failure and stage 1 through stage 4 chronic kidney disease, or unspecified chronic kidney disease; N18.30 Chronic kidney disease, stage 3 unspecified; E11.22 Type 2 diabetes mellitus with diabetic chronic kidney disease; I20.0 Unstable angina; E03.9 Hypothyroidism, unspecified; E78.5 Hyperlipidemia, unspecified; E83.42 Hypomagnesemia; I48.91 Unspecified atrial fibrillation; D50.9 Iron deficiency anemia, unspecified; K21.9 Gastro-esophageal reflux disease without esophagitis; I25.2 Old myocardial infarction; Z90.49 Acquired absence of other specified parts of digestive tract; Z90.710 Acquired absence of both cervix and uterus; Z79.890 Hormone replacement therapy; Z79.84 Long term (current) use of oral hypoglycemic drugs; Z79.01 Long term (current) use of anticoagulants; Z79.52 Long term (current) use of systemic steroids; Z79.899 Other long term (current) drug therapy
CPT/HCPCS: 36415; 51702; 71045; 80048; 80053; 80076; 82274; 82607; 82746; 82947; 83540; 83735; 83880; 84100; 84132; 84484; 85025; 85049; 85610; 85730; 86850; 86900; 86901; 87040; 93005; 93307; 96365; 96366; 96372; 96375; 97116; 97161; 99285; C9113; G0378; J1644; J1650; J1815; J1940; J2270; J2405; J3010; J3475; J7030; U0003

== ENCOUNTER 2021-04-15 10:13 | Observation (INO) | payer OTHER ==
--- NOTE | 2021-04-15 11:23 | RAD REPORT ---
EXAM DESCRIPTION: RAD - Chest Single View - 04/15/2021 11:08 am CLINICAL HISTORY: COUGH COMPARISON: Portable July 31 TECHNIQUE: AP portable chest image was obtained 04/15/2021 11:08 am . FINDINGS: Chronic interstitial lung changes are present. No peripheral mass or consolidation. The al veolar edema or infiltrate changes seen on the July study have resolved. Cardiac silhouette has di minished in size twin normal range. No acute vascular engorgement. Chest is distorted slightly by rot ation and scoliotic curvature in the spine. No measurable pleural effusion and no pneumothorax. No ac maira bony abnormality seen. No acute aortic findings suspected. IMPRESSION: No acute cardiopulmonary process.
[2021-04-15 11:43] LABS: Absolute Lymphocytes (CBC) 1.6 K/uL (0.7-4.9); Basophils % 1.1 % (0-1.3); Hematocrit 37.1 % (36.0-45.0); Lymphocytes % 23.2 % (15.3-44.8); MPV 8.5 fL (7.6-11.3); RBC Red Blood Cell Count 4.18 M/uL (3.86-4.86)
[2021-04-15 11:56] LABS: ALT/SGPT 13 U/L (12-78); AST/SGOT 7 U/L (15-37); Albumin 3.7 g/dL (3.4-5.0); Alkaline Phosphatase 66 U/L (45-117); BUN Blood Urea Nitrogen 40 mg/dL (7-18); Bicarbonate 23 mmol/L (21-32); Bilirubin Direct 0.2 mg/dL (0-0.2); Bilirubin Total 0.9 mg/dL (0.2-1.0); Glucose Level 238 mg/dL (74-106); Magnesium 1.5 mg/dL (1.8-2.4); NT PRO-BNP 2172 pg/mL (<125); Sodium Level 138 mmol/L (136-145); Troponin (Emerg Dept Use Only) < 0.02 ng/mL (0.0-0.045)
[2021-04-15 11:58] LABS: Potassium 5.9 mmol/L (3.5-5.1)
[2021-04-15 12:05] LABS: Protime INR 1.01
--- NOTE | 2021-04-15 12:33 | RAD REPORT ---
EXAM DESCRIPTION: CT - Stone Protocol - 04/15/2021 12:16 pm CLINICAL HISTORY: Distention;Pain COMPARISON: Abdomen Pelvis W Contrast dated 09/23/2020; Abdomen Pelvis W Contrast dated 8 TECHNIQUE: Axial [address] imaging of the abdomen and pelvis was performed without IV contrast. No IV contrast was given because of allergy, abnormal renal function, patient refusal or physician re quest. No oral contrast administered. All CT scans are performed using dose optimization technique as appropriate and may include automated exposure control or mA/KV adjustment according to patient size. FINDINGS: No suspicious findings in the lung bases. No cardiomegaly. Pericardial effusion seen on september examination has resolved. There is a mild pericardial thickening has a remnant. Very minimal hiatal hernia present. No focal liver abnormality on noncontrast imaging. Cholecystectomy clips are present with no abnormal biliary tree dilatation. No acute pancreatic process seen. Pancreas is isodense to adjacent bowel an d vasculature. The nodular contour of a small spleen noted and unchanged. No hydronephrosis or suspicious renal mass. Adrenal glands are normal range an unchanged back to at least 2018. Isodense renal masses and pyelonephritis cannot be excluded in the absence of IV contrast . Partially filled urinary bladder shows no suspicious finding. No gastric dilatation or wall thickening. Gastric wall assessment is limited. Only a small amount of content is present within the lumen of the stomach and this is isodense to the gastric leigh. No dila viktoria large or small bowel loops. There is moderate amount of stool in the colon. Sigmoid colon is redu ndant with minimal diverticulosis. Appendix is absent. No free air, free fluid or inflammatory stranding. No hernia, mass or bulky lymphadenopathy. Disc and bone degenerative changes are present. T11 has been previously treated with vertebroplasty. Compression fracture of T12 and partial collapse of the L3 body show no interval change from September. IMPRESSION: Non-contrast enhanced CT abdomen and pelvis imaging show no acute or emergent finding. Nonacute findings are detailed in the body of the report and are similar to the September 2020 study. Full assessment is limited is the absence of IV contrast.
[2021-04-15] MEDS ORDERED: ALBUTEROL 2.5 MG/3 ML NEB SOL ONE (12:35)
[2021-04-15] MEDS ORDERED: SOD POLYSTYREN SUL 15 GM/60 ML UCUP ONE ×2 (12:36→17:01)
[2021-04-15] MEDS ORDERED: IPRATROPIUM BROM 0.5MG/2.5ML ONE (12:36)
[2021-04-15] MEDS ORDERED: MAGNESIUM SULFATE 1 gm IVPB 1 GM/100 ML BAG IV ONE (12:36)
--- NOTE | 2021-04-15 13:12 | EDPHYS ---
Physician Documentation [facility] Name: Linda Menezes Age: 70 yrs Sex: Female : 1950 Arrival Date: 04/15/2021 Time: 10:21 Bed Treatment Private MD: Emanuel [facility] ED Physician Frantz Urban HPI: 04/15 13:03 This 70 yrs old Female presents to ER via Ambulatory with complaints of high nasrin potassium, Palpitations. 13:03 The patient presents with a history of irregular heart beat, heart racing. Context: The nasrin symptoms occur with anxiety, with light activity. Onset: The symptoms/episode began/occurred 2 day(s) ago. Duration: The patient or guardian reports multiple episodes, with no pattern. Modifying factors: The symptoms are aggravated by nothing. The symptoms are alleviated by nothing. Associated signs and symptoms: Pertinent positives: lightheadedness, nausea. Severity of symptoms: At their worst the symptoms were mild in the emergency department the symptoms are unchanged. The patient has experienced similar episodes in the past, a few times. Historical: - Immunization history:: Adult Immunizations up to date, Client reports receiving the 2nd dose of the Covid vaccine. - Social history:: Smoking status: Patient denies any tobacco usage or history of. Patient/guardian denies using alcohol, street drugs, tobacco products. ROS: 13:04 Constitutional: Negative for fever, chills, and weight loss, Eyes: Negative for injury, nasrin pain, redness, and discharge, ENT: Negative for injury, pain, and discharge, Neck: Negative for injury, pain, and swelling, Respiratory: Negative for shortness of breath, cough, wheezing, and pleuritic chest pain, Abdomen/GI: Negative for abdominal pain, nausea, vomiting, diarrhea, and constipation, Back: Negative for injury and pain, : Negative for injury, bleeding, discharge, and swelling, MS/Extremity: Negative for injury and deformity, Skin: Negative for injury, rash, and discoloration, Neuro: Negative for headache, weakness, numbness, tingling, and seizure, Psych: Negative for depression, anxiety, suicide ideation, homicidal ideation, and hallucinations, Allergy/Immunology: Negative for hives, rash, and allergies, Endocrine: Negative for neck swelling, polydipsia, polyuria, polyphagia, and marked weight changes, Hematologic/Lymphatic: Negative for swollen nodes, abnormal bleeding, and unusual bruising. 13:04 Cardiovascular: Positive for palpitations. Exam: 13:04 Constitutional: This is a well developed, well nourished patient who is awake, alert, nasrin and in no acute distress. Head/Face: Normocephalic, atraumatic. Eyes: Pupils equal round and reactive to light, extra-ocular motions intact. Lids and lashes normal. Conjunctiva and sclera are non-icteric and not injected. Cornea within normal limits. Periorbital areas with no swelling, redness, or edema. ENT: Nares patent. No nasal discharge, no septal abnormalities noted. Tympanic membranes are normal and external auditory canals are clear. Oropharynx with no redness, swelling, or masses, exudates, or evidence of obstruction, uvula midline. Mucous membranes moist. Neck: Trachea midline, no thyromegaly or masses palpated, and no cervical lymphadenopathy. Supple, full range of motion without nuchal rigidity, or vertebral point tenderness. No Meningismus. Chest/axilla: Normal chest wall appearance and motion. Nontender with no deformity. No lesions are appreciated. Cardiovascular: Regular rate and rhythm with a normal S1 and S2. No gallops, murmurs, or rubs. Normal PMI, no JVD. No pulse deficits. Respiratory: Lungs have equal breath sounds bilaterally, clear to auscultation and percussion. No rales, rhonchi or wheezes noted. No increased work of breathing, no retractions or nasal flaring. Abdomen/GI: Soft, non-tender, with normal bowel sounds. No distension or tympany. No guarding or rebound. No evidence of tenderness throughout. Back: No spinal tenderness. No costovertebral tenderness. Full range of motion. Female : Normal external genitalia. Skin: Warm, dry with normal turgor. Normal color with no rashes, no lesions, and no evidence of cellulitis. MS/ Extremity: Pulses equal, no cyanosis. Neurovascular intact. Full, normal range of motion. Neuro: Awake and alert, GCS 15, oriented to person, place, time, and situation. Cranial nerves II-XII grossly intact. Motor strength 5/5 in all extremities. Sensory grossly intact. Cerebellar exam normal. Normal gait. Psych: Awake, alert, with orientation to person, place and time. Behavior, mood, and affect are within normal limits. 13:04 Musculoskeletal/extremity: DVT Exam: No signs of deep vein thrombosis. no pain, no swelling, no tenderness, negative Homans' sign noted on exam, no appreciated bluish discoloration, no erythema, no increased warmth. 13:11 ECG was reviewed by the Attending Physician. [facility] Vital Signs: 10:57 BP 108 / 70; Pulse 70; Resp 18; Temp 98.4; Pulse Ox 97% on R/A; Weight 68.04 kg; Height kh1 5 ft. 3 in. (160.02 cm); Pain 3/10; 11:02 BP 108 / 70; Pulse 70; Resp 19; Temp 98.4; Pulse Ox 97% on R/A; kh1 12:00 BP 111 / 60; Pulse 74; Resp 16; Temp 98.0; Pulse Ox 99% on R/A; kh1 13:00 BP 115 / 58; Pulse 64; Resp 12; Temp 98.4; Pulse Ox 100% on R/A; kh1 14:18 BP 97 / 57; Pulse 67; Resp 16; Pulse Ox 96% on R/A; kh1 19:35 BP 107 / 59; Pulse 80; Resp 17; Pulse Ox 99% on R/A; Pain 0/10; tc5 10:57 Body Mass Index 26.57 (68.04 kg, 160.02 cm) [facility] MDM: 10:41 Patient medically screened. [facility] 13:06 NASIRN Risk Score: 1 - Patient's age is greater or equal to 65, 1 - 3 or more CAD risk nasrin factors, Total Score = 2. Differential diagnosis: arrythmia, dehydration, stress disorder. Data reviewed: vital signs, nurses notes, lab test result(s), EKG, radiologic studies, CT scan, plain films. Data interpreted: electronic device monitor: rate is 70 beats/min, rhythm is regular, Pulse oximetry: on room air is 97 %. Test interpretation: by ED physician or midlevel provider: ECG, plain radiologic studies. Counseling: I had a detailed discussion with the patient and/or guardian regarding: the historical points, exam findings, and any diagnostic results supporting the discharge/admit diagnosis, lab results, radiology results, the need for further work-up and treatment in the hospital. 04/15 10:41 Order name: Basic Metabolic Panel; Complete Time: 12:05 [facility] 04/15 10:41 Order name: CBC with Diff; Complete Time: 12:05 [facility] 04/15 10:41 Order name: LFT's; Complete Time: 12:05 [facility] 04/15 10:41 Order name: Magnesium; Complete Time: 12:05 [facility] 04/15 10:41 Order name: NT PRO-BNP; Complete Time: 12:05 [facility] 04/15 10:41 Order name: PT-INR; Complete Time: 12:37 [facility] 04/15 10:41 Order name: Troponin (emerg Dept Use Only); Complete Time: 12:05 [facility] 04/15 15:18 Order name: SARS-COV-2 RT PCR EDMS 04/15 16:56 Order name: Urinalysis EDMS 04/15 17:23 Order name: Phosphorus EDMS 04/15 17:23 Order name: Troponin I EDMS 04/15 17:23 Order name: T4 Free EDMS 04/15 17:23 Order name: Magnesium EDMS 04/15 10:41 Order name: XRAY Chest (1 view); Complete Time: 12:05 [facility] 04/15 10:41 Order name: EKG; Complete Time: 10:42 [facility] 04/15 10:41 Order name: Cardiac monitoring; Complete Time: 11:27 [facility] 04/15 10:41 Order name: EKG - Nurse/Tech; Complete Time: 11:27 [facility] 04/15 10:41 Order name: IV Saline Lock; Complete Time: 11:27 [facility] 04/15 10:41 Order name: Labs collected and sent; Complete Time: 11:27 [facility] 04/15 10:41 Order name: O2 Per Protocol; Complete Time: 11:27 [facility] 04/15 10:41 Order name: O2 Sat Monitoring; Complete Time: 11:28 [facility] 04/15 11:46 Order name: Labs - recollect needed: recollect blue tube, not filled enough; Complete bd Time: 11:46 04/15 12:07 Order name: CT Stone Protocol; Complete Time: 12:37 [facility] 04/15 17:23 Order name: Thyroid Stimulating Hormone EDMS EC:11 Rate is 65 beats/min. Rhythm is regular. QRS Pioneer is Normal. VT interval is normal. QRS nasrin interval is normal. QT interval is normal. No Q waves. T waves are Normal. No ST changes noted. Clinical impression: Abnormal EKG without significant change and No evidence of ischemia. Interpreted by me. Reviewed by me. Administered Medications: 12:33 Drug: Magnesium Sulfate 1 grams Route: IVPB; Infused Over: 1 hrs; Site: left [facility] antecubital; :33 Drug: Albuterol 7.5 mg Route: Inhalation; [facility] 12:33 Drug: AtroVENT (ipratropium) Aerosol 0.5 mg Route: Inhalation; [facility] 12:33 Drug: Kayexalate (polystyrene) 45 grams Route: PO; [facility] Disposition Summary: 04/15/21 13:11 Hospitalization Ordered Hospitalization Status: Observation nasrin Provider: Scott Rodríguez cha Location: Telemetry/MedSurg (observation) nasrin Condition: Fair nasrin Problem: new nasrin Symptoms: have improved nasrin Bed/Room Type: Standard nasrin Room Assignment: 419(04/15/21 20:33) bb Diagnosis - Acute kidney failure, unspecified - acute on chronic nasrin - Hyperkalemia nasrin - Palpitations nasrin - Weakness nasrin Forms: - Medication Reconciliation Form nasrin - SBAR form nasrin Signatures: Dispatcher [employer] EDSulma Hagan Corey, MD MD cha Ballard, Brenda, RN RN Apolonia Garrison [facility] Corrections: (The following items were deleted from the chart) 11:00 10:59 PMHx: Diabetes - NIDDM; [place] [id number] 11:00 10:59 PMHx: Hypertension; [place] [id number] 11:00 10:59 PMHx: restless leg syndrome; [place] [id number] 11:00 10:59 PMHx: neuropathy; [place] [id number] 11:00 10:59 PMHx: chronic back pain; [place] [id number] 11:00 10:59 PMHx: intussusception intestine; [place] [id number] 11:00 10:59 PMHx: Myocardial infarction; [place] [id number] 15:18 13:48 CORONAVIRUS+JUAN MSteveCHERELLE ordered. EDMS EDMS :33 13:11 nasrin erickson
--- NOTE | 2021-04-15 13:12 | ER ---
Nurse's Notes [facility] Name: Linda Menezes Age: 70 yrs Sex: Female : 1950 Arrival Date: 04/15/2021 Time: 10:21 Bed Treatment Private MD: Capo Castellanos Diagnosis: Acute kidney failure, unspecified-acute on chronic;Hyperkalemia;Palpitations;Weakness Presentation: 04/15 10:57 Chief complaint: Patient states: was sent by PCP for potassium of 6.9. c/o chest pain [facility] non radiating 3/10 on pain scale. denies sob. positive diarrhea. Coronavirus screen: Vaccine status: Patient reports receiving the 2nd dose of the covid vaccine. diarrhea. Ebola Screen: No symptoms or risks identified at this time. Initial Sepsis Screen: Does the patient meet any 2 criteria? Yes Does the patient have a suspected source of infection? No. Patient's initial sepsis screen is negative. Risk Assessment: Do you want to hurt yourself or someone else? Patient reports no desire to harm self or others. Onset of symptoms is unknown. 10:57 Method Of Arrival: Ambulatory [facility] 10:57 Acuity: ALHAJI 2 kh1 Triage Assessment: 11:00 General: Appears in no apparent distress. comfortable, Behavior is calm, cooperative, kh1 appropriate for age. Pain: Complains of pain in chest Pain does not radiate. Pain currently is 3 out of 10 on a pain scale. Pain began 2-3 days ago. Is. Neuro: No deficits noted. Level of Consciousness is awake, alert, obeys commands, Oriented to person, place, time, situation, Deadener are equal bilaterally Moves all extremities. Gait is unsteady, Speech is normal, Facial symmetry appears normal. Historical: - Immunization history:: Adult Immunizations up to date, Client reports receiving the 2nd dose of the Covid vaccine. - Social history:: Smoking status: Patient denies any tobacco usage or history of. Patient/guardian denies using alcohol, street drugs, tobacco products. Screenin:03 Abuse screen: Denies threats or abuse. Nutritional screening: No deficits noted. [facility] Tuberculosis screening: No symptoms or risk factors identified. Fall Risk None identified. Secondary diagnosis (15 points) impaired mobility, IV access (20 points). Ambulatory Aid- Crutches/Cane/Walker (15 pts). Gait- Weak (10 pts.). Mental Status- Oriented to own ability (0 pts). Assessment: 11:01 General: Appears in no apparent distress. comfortable, well groomed, Behavior is calm, kh1 cooperative, appropriate for age. Neuro: No deficits noted. Level of Consciousness is awake, alert, obeys commands, Oriented to person, place, time, situation, Appropriate for age Deadener are equal bilaterally Moves all extremities. Gait is steady, Speech is normal, Facial symmetry appears normal. Cardiovascular: Reports chest pain, Denies lightheadedness, shortness of breath. Respiratory: No deficits noted. Airway is patent Respiratory effort is even, unlabored, Respiratory pattern is regular, symmetrical. 12:00 Reassessment: Patient appears in no apparent distress at this time. No changes from [facility] previously documented assessment. Patient and/or family updated on plan of care and expected duration. Pain level reassessed. Patient is alert, oriented x 3, equal unlabored respirations, skin warm/dry/pink. 13:23 Reassessment: Patient appears in no apparent distress at this time. No changes from [facility] previously documented assessment. Patient and/or family updated on plan of care and expected duration. Pain level reassessed. Patient is alert, oriented x 3, equal unlabored respirations, skin warm/dry/pink. 14:17 Reassessment: Patient appears in no apparent distress at this time. No changes from 1 previously documented assessment. Patient and/or family updated on plan of care and expected duration. Pain level reassessed. Patient is alert, oriented x 3, equal unlabored respirations, skin warm/dry/pink. 15:12 Reassessment: Patient appears in no apparent distress at this time. No changes from 1 previously documented assessment. Patient and/or family updated on plan of care and expected duration. Pain level reassessed. Patient is alert, oriented x 3, equal unlabored respirations, skin warm/dry/pink. Patient states feeling better. 19:35 Reassessment: Pt sitting up in bed, is aaox4, denies any needs at this time. Reports " tc5 feeling good". Vss, call light is not working, door left open and will monitor closely in case of pt needs other than rounding. Will continue to monitor. BSC at bedside. Instructed to call for assistance, pt reports is able to get up byself. Pt in nad. Vital Signs: 10:57 BP 108 / 70; Pulse 70; Resp 18; Temp 98.4; Pulse Ox 97% on R/A; Weight 68.04 kg; Height kh1 5 ft. 3 in. (160.02 cm); Pain 3/10; 11:02 BP 108 / 70; Pulse 70; Resp 19; Temp 98.4; Pulse Ox 97% on R/A; kh1 12:00 BP 111 / 60; Pulse 74; Resp 16; Temp 98.0; Pulse Ox 99% on R/A; kh1 13:00 BP 115 / 58; Pulse 64; Resp 12; Temp 98.4; Pulse Ox 100% on R/A; kh1 14:18 BP 97 / 57; Pulse 67; Resp 16; Pulse Ox 96% on R/A; kh1 19:35 BP 107 / 59; Pulse 80; Resp 17; Pulse Ox 99% on R/A; Pain 0/10; tc5 10:57 Body Mass Index 26.57 (68.04 kg, 160.02 cm) [facility] Vitals: 11:02 Cardiac Rhythm Assessment Regular Sinus rhythm. [facility] ED Course: 10:21 Patient arrived in ED. am2 10:21 Capo Castellanos DO is Private Physician. am2 10:33 Diana Anaya, RN is Primary Nurse. tc5 10:41 Frantz Urban MD is Attending Physician. nasrin 10:59 Triage completed. kh1 11:01 Arm band placed on right wrist. EKG completed in triage. Results shown to MD. kh1 11:03 Patient has correct armband on for positive identification. Placed in gown. Bed in low kh1 position. Call light in reach. Side rails up X 1. ekg monitor on. Pulse ox on. NIBP on. 11:08 XRAY Chest (1 view) In Process Unspecified. EDMS 11:28 Basic Metabolic Panel Sent. kh1 11:28 CBC with Diff Sent. kh1 11:28 LFT's Sent. kh1 11:28 Magnesium Sent. kh1 11:28 NT PRO-BNP Sent. kh1 11:28 PT-INR Sent. 1 11:28 Troponin (emerg Dept Use Only) Sent. kh1 11:45 Basic Metabolic Panel Sent. kh1 11:45 LFT's Sent. kh1 11:45 Magnesium Sent. kh1 11:45 NT PRO-BNP Sent. kh1 11:45 PT-INR Sent. kh1 11:45 Troponin (emerg Dept Use Only) Sent. kh1 12:16 CT Stone Protocol In Process Unspecified. EDOK 12:33 PT-INR Sent. kh1 13:07 Scott Rodríguez is Hospitalizing Provider. [facility] 15:12 Apolonia Pineda is Primary Nurse. 1 Administered Medications: 12:33 Drug: Magnesium Sulfate 1 grams Route: IVPB; Infused Over: 1 hrs; Site: left kh antecubital; 12:33 Drug: Albuterol 7.5 mg Route: Inhalation; kh1 12:33 Drug: AtroVENT (ipratropium) Aerosol 0.5 mg Route: Inhalation; kh1 12:33 Drug: Kayexalate (polystyrene) 45 grams Route: PO; kh1 Outcome: 13:11 Decision to Hospitalize by Provider. [facility] 22:00 Condition: stable dc2 22:00 Instructed on the need for admit, Demonstrated understanding of instructions. 22:49 Admitted to Med/surg accompanied by tech, via stretcher. dc2 22:54 Patient left the ED. dc2 Signatures: Dispatcher [employer] EDFrantz Ballesteros MD MD cha Moreno, Amanda am2 Apolonia Pineda [facility] LuceroCherry, RN RN dc2 Diana Anaya RN RN tc5 Corrections: (The following items were deleted from the chart) 11:00 10:59 PMHx: Diabetes - NIDDM; [place] [id number] 11:00 10:59 PMHx: Hypertension; [place] [id number] 11:00 10:59 PMHx: restless leg syndrome; [place] [id number] 11:00 10:59 PMHx: neuropathy; [place] [id number] 11:00 10:59 PMHx: chronic back pain; [place] [id number] 11:00 10:59 PMHx: intussusception intestine; [place] [id number] 11:00 10:59 PMHx: Myocardial infarction; [place] [id number] 14:17 12:00 BP 115 / 58; Pulse 64bpm; Resp 12bpm; Pulse Ox 100% RA; Temp 98.4F; [place] [id number] 15:18 14:04 CORONAVIRUS+MR.JUAN M.BRZ drawn and sent. kh1 EDMS
[2021-04-15] MEDS ORDERED: LABETALOL 20 MG/4ML SYRINGE IV PRN ×2 (15:20→15:33)
[2021-04-15] MEDS ORDERED: SOD POLYSTYREN SUL 15 GM/60 ML UCUP PO ONE (15:21)
[2021-04-15] MEDS ORDERED: ONDANSETRON 4 MG/2 ML VIAL IV PRN (15:38)
[2021-04-15] MEDS ORDERED: ACETAMINOPHEN 500 MG TAB PO PRN (15:38)
--- NOTE | 2021-04-15 15:41 | P.HP ---
Certification for Inpatient Patient admitted to: Inpatient With expected LOS: >2 Midnights Practitioner: I am a practitioner with admitting privileges, knowledge of patient current condition, hospital course, and medical plan of care. Services: Services provided to patient in accordance with Admission requirements found in Title 42 Section 412.3 of the Code of Federal Regulations Patient History Date of Service: 04/15/21 Reason for admission: Hyperkalemia, Palpitations, chest pain History of Present Illness: Patient is a 70-year-old female with a past medical history significant for hypertension, DM 2 with neuropathy, GERD, RLS, hypothyroidism, gout who presents with complaint of abnormal labs. Patient reported that she followed up with her PCP last week and was called this morning to come to the ER due to elevated potassium of 6.5 per patient's report. Patient reported that she has been having palpitations for the past 3 weeks. Patient also reports intermittent chest pain located in the left chest wall ongoing for the past 3 weeks. Patient rated pain as 6/10 in severity and described pain as pressure in quality. Patient reports continued signs and symptoms of nausea and lightheadedness. Patient reports chronic diarrhea. Patient denies any other signs or symptoms. Symptoms are aggravated or relieved by nothing. Patient decided to present to the hospital as directed by her PCP Allergies No Known Drug Allergies Allergy (Verified 06/14/18 10:24) Unknown Home Medications: Alendronate Sodium [Fosamax] 1 tab PO SEECOM #30 07/28/20 Diphenox/Atropine [Lomotil*] 1 tab PO QID PRN #30 tab 07/28/20 Duloxetine [Cymbalta *] 1 cap PO DAILY #30 cap 07/28/20 Ensure High Protein 237 ml PO BID 30 Days #60 can 07/28/20 Famotidine [Pepcid] 20 mg PO DAILY 30 Days #30 tablet 07/28/20 Furosemide [Lasix*] 20 mg PO DAILY 30 Days #30 tab 07/28/20 Levothyroxine [Synthroid*] 1 tab PO [id number] #30 tab 07/28/20 Lovastatin [Altoprev] 1 tab PO DAILY #30 07/28/20 Melatonin [Melatonin*] 3 mg PO BEDTIME 30 Days #30 tablet 07/28/20 Metformin HCl [Glucophage*] 1 tab PO BIDWM #60 tab 07/28/20 Nitroglycerin [Nitrostat*] 0.4 mg SL UD PRN #20 tab 07/28/20 Senosides [Senokot*] 17.2 mg PO BID #120 tab 07/28/20 Spironolactone [Aldactone*] 25 mg PO DAILY 30 Days #30 tab 07/28/20 Tramadol HCl [Ultram] 1 tab PO Q6H PRN #30 07/28/20 carvediloL [Carvedilol] 6.25 mg PO BID 30 Days #60 tablet 07/28/20 glipiZIDE [Glucotrol*] 1 tab PO BID #60 tab 07/28/20 Polyethyl Gly 3350 [Glycolax*] 17 gm PO DAILY PRN 07/31/20 Cyanocobalamin (Vitamin B-12) [Vitamin B12] 5,000 mcg SL DAILY #30 tab.rapdis 08/06/20 Ferrous Sulfate [Slow Release Iron] 250 mg PO BID #60 tablet.er 08/06/20 Magnesium Chloride [Slow-Mag] 64 mg PO DAILY #30 tab 08/06/20 Warfarin Sodium [Coumadin*] 5 mg PO DAILY 5 PM #30 tab 08/06/20 predniSONE [Prednisone*] 20 mg PO DAILY #6 tab 08/06/20 - Past Medical/Surgical History Diabetic: Yes -: Diabetes mellitus type 2, non insulin dependent -: Hypertension -: Hypothyroidism -: Gout -: GERD -: Restless leg syndrome -: Neuropathy -: RESTLESS LEGS SYNDROME -: bronchitis (november 20, 2014) -: right eye lid weakness -: Hysterectomy, 1977 -: intussusception of intestines -: compression disc fracture -: Carpal tunnel Sx, 1983 -: R. elbow Sx, 1999 -: [place] CATARACT SX 2014 -: colonoscopy date unknown, pt advised -: cholecystectomy Psychosocial/ Personal History: The patient is a . She has 2 children. - Family History Father -: Hypertension, Other (see notes) Notes: Parkinson's Mother -: Hypertension, Diabetes, Stroke, Cancer Notes: breast - Social History Smoking Status: Never smoker Alcohol use: No CD- Drugs: No Caffeine use: Yes Review of Systems General: Malaise Eyes: Unremarkable ENT: Unremarkable Respiratory: Unremarkable Cardiovascular: Chest Pain, Palpitations, Light Headedness Gastrointestinal: Nausea, Diarrhea Genitourinary: Unremarkable Musculoskeletal: Unremarkable Integumentary: Unremarkable Neurological: Unremarkable Lymphatics: Unremarkable Physical Examination - Physical Exam General: Alert, In no apparent distress, Oriented x3 HEENT: Atraumatic, PERRLA, Mucous membr. moist/pink, EOMI, Sclerae nonicteric Neck: Supple, 2+ carotid pulse no bruit, No LAD, Without JVD or thyroid abnormality Respiratory: Clear to auscultation bilaterally, Normal air movement Cardiovascular: Regular rate/rhythm, Normal S1 S2 Capillary refill: <2 Seconds Gastrointestinal: Normal bowel sounds, No tenderness Musculoskeletal: No clubbing, No tenderness Integumentary: No rashes Neurological: Normal gait, Normal speech, Normal tone, Normal affect Lymphatics: No axilla or inguinal lymphadenopathy External genitalia: Deferred Rectal: Deferred - Studies Laboratory Data (last 24 hrs) 04/15/21 11:50: PT 11.6, INR 1.01 04/15/21 11:25: WBC 6.90, Hgb 12.1, Hct 37.1, Plt Count 287 04/15/21 11:25: Sodium 138, Potassium 5.9 H*, BUN 40 H, Creatinine 1.42 H, Glucose 238 H, Magnesium 1.5 L, Total Bilirubin 0.9, AST 7 L, ALT 13, Alkaline Phosphatase 66 Assessment and Plan - Plan --Acute kidney injury. Nephrology consulted. Further management per costume maker. --Hyperkalemia. Patient given Kayexalate x1 dose. Will reassess levels in a.m. Further management per costume maker. --DM2 with neuropathy. BS monitoring with sliding scale insulin. Continue home medication for her neuropathy. --GERD. Continue Protonix. --RLS. Continue home medication. --Hypothyroidism. Continue home medication. --Chest pain. Unclear etiology. Will trend troponin. Cardiology consulted. Echocardiogram pending. Telemetry to monitor for any significant arrhythmia. Further management per power transformer assembler. --Hypothyroidism. Continue home medication. --DVT prophylaxis with heparin subQ I have had discussion about advanced directives with the patient during this hospital admission. Addressed code status and goals of care. Spent more than 30 minutes. Case discussed withpatient and nurse. The following document was completed using voice recognition software. This can produce hairspring adjuster errors that can at times significantly distort words and phrases. Please interpret any aspect of the note that is nonsensical in light of this fact. Discharge Plan: Home Plan to discharge in: 48 Hours - Advance Directives Does patient have a Living Will: No Does patient have a Durable POA for Healthcare: No - Code Status/Comfort Care Code Status Assessed: Yes Code Status: Full Code Physician Review: Patient Assessed, Agree with Above Assessment and Plan Critical Care: No
[2021-04-15] MEDS ORDERED: ACETAMINOPHEN 325 MG TABLET ONE (16:09)
[2021-04-15 16:22] VITALS: BMI 26.5
[2021-04-15 16:54] LABS: Urine Appearance CLEAR (Clear); Urine Bilirubin NEGATIVE (Negative); Urine Blood NEGATIVE (Negative); Urine Color YELLOW (Yellow); Urine Glucose NEGATIVE (Negative); Urine Protein NEGATIVE (Negative); Urine Urobilinogen 0.2 mg/dL (0.2-1.0)
[2021-04-15 16:55] LABS: Urine Microscopic Reflex NO UMIC
[2021-04-15 17:22] LABS: Magnesium 1.8 mg/dL (1.8-2.4); Phosphorus 3.3 mg/dL (2.5-4.9); Troponin I < 0.02 ng/mL (0.0-0.045)
[2021-04-15] MEDS: HEPARIN 5000 UNIT/ML 1 ML VIAL SQ SCH (22:40)
[2021-04-15] MEDS ORDERED: GLUCAGON 1 MG/VIAL IM PRN (23:23)
[2021-04-15] MEDS ORDERED: D50W 25 GM/50 ML SYRINGE IV PRN (23:23)
[2021-04-16 04:00] LABS: Absolute Lymphocytes (CBC) 1.9 K/uL (0.7-4.9); Basophils % 0.8 % (0-1.3); Hematocrit 34.2 % (36.0-45.0); Lymphocytes % 31.3 % (15.3-44.8); MPV 8.1 fL (7.6-11.3); RBC Red Blood Cell Count 3.89 M/uL (3.86-4.86)
[2021-04-16 04:15] LABS: Potassium 3.9 mmol/L (3.5-5.1)
[2021-04-16] MEDS ORDERED: SODIUM CHLORIDE 0.9% 10ML INJ IV PRN (06:54)
[2021-04-16 07:35] VITALS: O2SAT 100
[2021-04-16] MEDS: HEPARIN 5000 UNIT/ML 1 ML VIAL SQ SCH (08:00)
[2021-04-16] MEDS: INSULIN -REGULAR HUMAN 50 UNIT/0.5 ML ML SQ SCH ×3 (08:18→17:26)
[2021-04-16] MEDS ORDERED: POTASSIUM CL SA 10 MEQ TAB PO ONE (09:00)
[2021-04-16] MEDS ORDERED: ASPIRIN 81 MG CHEWABLE TABLET PO SCH (09:00)
[2021-04-16] MEDS ORDERED: PANTOPRAZOLE 40 MG INJ IVP SCH (09:00)
[2021-04-16] MEDS: HYDROCODONE/APAP 5/325 MG TAB PO PRN ×2 (10:51→17:06)
--- NOTE | 2021-04-16 14:10 | P.DS ---
Admission Date: 04/15/21 Discharge Date: 04/16/21 Disposition: ROUTINE DISCHARGE Discharge Condition: FAIR Reason for Admission: Hyperkalemia, Palpitations, chest pain - Problems (1) Chronic kidney disease, stage 3 Current Visit: Yes Status: Acute (2) Chronic systolic heart failure Current Visit: No Status: Acute (3) Diabetes mellitus, type II Onset Date: 06/12/18 Current Visit: No Status: Acute Qualifiers: Diabetes mellitus jail insulin use: with public services assistant use Diabetes mellitus complication status: without complication Qualified Code(s): E11.9 - Type 2 diabetes mellitus without complications; Z79.4 - cork insulator (current) use of insulin (4) Hyperkalemia Current Visit: Yes Status: Acute Brief History of Present Illness: 70-year-old woman with a past medical history significant for hypertension, DM 2 with neuropathy, GERD, RLS, hypothyroidism, gout presented with complaint of abnormal labs. Patient reported that she followed up with her PCP last week and was called this morning to come to the ER due to elevated potassium of 6.5 per patient's report. Patient reported that she has been having palpitations for 3 weeks. Patient also reported intermittent chest pain located in the left chest wall ongoing for the past 3 weeks. Patient rated pain as 6/10 in severity and described pain as pressure in quality. Patient reported nausea and lightheadedness. Patient reported chronic diarrhea. Potassium in the ED was 5.9. Serum creatinine 1.42. Chest x-ray showed no acute cardiopulmonary process. Initial troponin negative. Patient hospitalized for further management. Hospital Course: Troponin trended negative. Hyperkalemia resolved with oral Kayexalate. Patient noted to be taking Aldactone and Lasix at home. Both medications were held during the hospital stay due to the SHUBHAM and hyperkalemia. I suspect patient has baseline CKD stage 3. She was seen in consultation by nephrology-Dr. Christianson. Lasix is being held briefly and Aldactone discontinued. Patient with a history of cardiac thrombus. She has not been taking Coumadin as prescribed. Case discussed with Dr. Arboleda. Due to noncompliance with Warfarin, patient is prescribed Eliquis. Patient is currently asymptomatic, ACS ruled out and she is deemed stable for discharge. Vital Signs/Physical Exam: Temp Pulse Resp BP Pulse Ox 98.3 F 82 18 125/76 100 04/16/21 11:43 04/16/21 11:43 04/16/21 11:43 04/16/21 11:43 04/16/21 11:43 General: Alert, In no apparent distress, Oriented x3 HEENT: Mucous membr. moist/pink Neck: JVD not distended Respiratory: Clear to auscultation bilaterally, Normal air movement Cardiovascular: No edema, Regular rate/rhythm, Normal S1 S2 Gastrointestinal: Normal bowel sounds, Soft and benign, Non-distended, No tenderness Musculoskeletal: No swelling Integumentary: No rashes Neurological: Normal strength at 5/5 x4 extr Laboratory Data at Discharge: WBC 6.20 K/uL (4.3-10.9) 04/16/21 03:36 Hgb 11.3 g/dL (12.0-15.0) L 04/16/21 03:36 Hct 34.2 % (36.0-45.0) L 04/16/21 03:36 Plt Count 267 K/uL (152-406) 04/16/21 03:36 PT 11.6 SECONDS (9.5-12.5) 04/15/21 11:50 INR 1.01 04/15/21 11:50 Sodium 138 mmol/L (136-145) 04/16/21 03:36 Potassium 3.9 mmol/L (3.5-5.1) 04/16/21 03:36 BUN 42 mg/dL (7-18) H 04/16/21 03:36 Creatinine 1.37 mg/dL (0.55-1.3) H 04/16/21 03:36 Glucose 278 mg/dL (74-106) H 04/16/21 03:36 Phosphorus 3.3 mg/dL (2.5-4.9) 04/15/21 16:18 Magnesium 1.8 mg/dL (1.8-2.4) 04/15/21 16:18 Total Bilirubin 0.9 mg/dL (0.2-1.0) 04/15/21 11:25 AST 7 U/L (15-37) L 04/15/21 11:25 ALT 13 U/L (12-78) 04/15/21 11:25 Alkaline Phosphatase 66 U/L (45-117) 04/15/21 11:25 Troponin I Cancelled 04/16/21 21:36 Home Medications: Alendronate Sodium [Fosamax] 1 tab PO SEECOM #30 07/28/20 Diphenox/Atropine [Lomotil*] 1 tab PO QID PRN #30 tab 07/28/20 Duloxetine [Cymbalta *] 1 cap PO DAILY #30 cap 07/28/20 Ensure High Protein 237 ml PO BID 30 Days #60 can 07/28/20 Famotidine [Pepcid] 20 mg PO DAILY 30 Days #30 tablet 07/28/20 Levothyroxine [Synthroid*] 1 tab PO [id number] #30 tab 07/28/20 Lovastatin [Altoprev] 1 tab PO DAILY #30 07/28/20 Melatonin [Melatonin*] 3 mg PO BEDTIME 30 Days #30 tablet 07/28/20 Metformin HCl [Glucophage*] 1 tab PO BIDWM #60 tab 07/28/20 Nitroglycerin [Nitrostat*] 0.4 mg SL UD PRN #20 tab 07/28/20 Senosides [Senokot*] 17.2 mg PO BID #120 tab 07/28/20 Tramadol HCl [Ultram] 1 tab PO Q6H PRN #30 07/28/20 carvediloL [Carvedilol] 6.25 mg PO BID 30 Days #60 tablet 07/28/20 glipiZIDE [Glucotrol*] 1 tab PO BID #60 tab 07/28/20 Polyethyl Gly 3350 [Glycolax*] 17 gm PO DAILY PRN 07/31/20 Cyanocobalamin (Vitamin B-12) [Vitamin B12] 5,000 mcg SL DAILY #30 tab.rapdis 08/06/20 Ferrous Sulfate [Slow Release Iron] 250 mg PO BID #60 tablet.er 08/06/20 Magnesium Chloride [Slow-Mag*] 64 mg PO DAILY #30 tab 08/06/20 Warfarin Sodium [Coumadin*] 5 mg PO DAILY 5 PM #30 tab 08/06/20 predniSONE [Prednisone*] 20 mg PO DAILY #6 tab 08/06/20 Apixaban [Eliquis] 5 mg PO BID #60 tablet 04/16/21 New Medications: Apixaban [Eliquis] 5 mg PO BID #60 tablet Diet: ADA Activity: Ad natalya Followup: Juan Pablo Christianson MD [ACTIVE - CAN ADMIT] - 1-2 Weeks (Call to schedule follow up appointment) Capo Castellanos, [Primary Care Provider] - (Call to schedule follow up appoitment) Darren Arboleda MD [ACTIVE - CAN ADMIT] - 1-2 Weeks (Call to schedule follow up appointment)
[2021-04-16] MEDS: APIXABAN 5 MG TABLET PO SCH ×2 (17:07→17:23)
--- NOTE | 2021-04-16 17:11 | CON ---
Date of Consultation: 04/16/2021 Reason For Consultation: Acute kidney injury, hyperkalemia. History Of Present Illness: This is a pleasant 70-year-old female with significant past medical hist ory of hypertension, hyperlipidemia, diabetes complicated with neuropathy, no retinopathy, hypothyroi dism, chronic kidney disease, baseline creatinine 1.3-1.4 with GFR of 40. As of January 2021, the patie nt was in her regular state of health, came to the hospital complaining from weakness and fatigue and she was called by her primary care as found to have potassium of 6.5. Upon arrival to the hospital, potassium 5.9 with elevation in creatinine 1.8. For that reason, we have been consulted. The patie nt complaining from left-sided chest pain. The patient had chronic diarrhea. Over the night, we sta rted the patient on hydration, given the cocktail of hyperkalemia treatment, potassium normalized, Al dactone was discontinued. Past Medical History: Includes; 1.Gout. 2.Hypertension. 3.Hyperlipidemia. 4.Diabetes complicated with neuropathy, no retinopathy. 5.Hypothyroidism. Home Medications: Include alendronate, Pepcid, Ensure, levothyroxine, melatonin, metformin, spironol actone. Past Surgical History: Includes cataract, colonoscopy, cholecystectomy, compression disk fracture, h ysterectomy, right eye surgery. Family History: Positive for hypertension. Social History: Denied smoking, denied drinking, denied drugs abuse. Review of Systems: Head and Neck: No red eye. No ear pain. GI: Has chronic diarrhea. Has decreased intake. : No polyuria. No dysuria. No hematuria. Workday Consultant: No vaginal discharge. Respiratory: No shortness of breath. Cardiovascular: No chest pain. Endocrine: No polydipsia. Skin: No rash. Neuro: Alert. Has lightheaded. Physical Examination: Vital Signs: Blood pressure 125/76. Yesterday, her blood pressure down to the 90. Chest: Clear to auscultation. Heart: S1, S2. Systolic murmur. Abdomen: Soft, nontender. Extremities: No edema. Neurologic: Alert. No focality. Laboratory Data: Sodium 138, potassium 5.9, bicarb 23, BUN 40, creatinine 1.4, GFR of 6. Today's la b; creatinine 1.3, potassium 3.9. Yesterday, H and H 12.1/37.1, today 11.3/34.2. Urinalysis was neg ative for infection. Assessment And Plan: 1.Acute kidney injury with hyperkalemia secondary to prerenal, recovered, back to baseline. I am go ing to keep holding spironolactone, decrease Lasix to 40 mg daily. The patient cleared from the Christine l standpoint for discharge planning to follow up in the office in 2-3 weeks. 2.Hyperkalemia secondary to spironolactone. Discontinue spironolactone, keep holding it. 3.Hypertension, controlled, optimal with the presence of acute kidney injury. Decrease Lasix. Hold spironolactone. 4.Chest pain as by primary. 5.Diabetes as by primary. The patient cleared from the Renal standpoint for discharge planning to f ollow up in the office in 2-3 weeks with chemistry. Time spent examining the patient, [id number], placing order, reviewing the clinical data, lab and r adiology, discussing the case with hospitalist and with the patient and discussing the case with the nursing 45 minutes. ALEX Voice ID: [id number] Report ID: [id number]
[2021-04-16 17:14] VITALS: BP 147/74; TEMP 97.3
--- NOTE | 2021-04-16 18:41 | CON ---
Date of Consultation: 04/16/2021 Reason For Consultation: Chest pain. History Of Present Illness: This is a 70-year-old female with history of hypertension, diabetes, sys tolic congestive heart failure with low ejection fraction, status post recent heart catheterization b ack in May done by me and she had normal coronary arteries. She is having some chest pain, maryse p in nature, not related to exertion, on the left side, for the past 3 weeks. When she was initially admitted, she was found to have significant hyperkalemia and she was admitted for that and acute vickie al failure. Now, the potassium is normalized. She has no symptoms at the present time. Past Medical History: As outlined above in the HPI. Medications: Refer to reconciliation sheet for detailed list. Allergies: NO KNOWN DRUG ALLERGIES. Family History: No premature coronary artery disease or cancer. Social History: She does not smoke or drink. Does not use any drugs. Review of Systems: All systems reviewed and they were negative except for what mentioned in HPI. Physical Examination: Vital Signs: Reviewed. Head and Neck: Pupils are equal, reactive to light. Intact eye movements. No JVD. No cervical lym phadenopathy. Neck: Supple. Thyroid is not enlarged. Lungs: Clear to auscultation bilaterally. No rhonchi, rales, or crackles. No accessory muscle use. Heart: Regular rate and rhythm. No extra sounds. Abdomen: Soft, nontender. Bowel sounds positive. No organomegaly. No masses or hernia. No rigidi ty or rebound. Extremities: No edema, clubbing, or cyanosis. Intact pulses. Skin: No rashes. Neurologic: Alert, awake, oriented x3. No acute focal deficits appreciated. Investigations: Labs were reviewed. Assessment And Recommendations: 1.Chest pain. Recent coronary angiogram that was normal in May, so this is noncardiac pain in origin. No further cardiac workup is recommended at this point. 2.Systolic congestive heart failure. Repeat echo showed significant improvement of her ejection fra ction. There is a finding suggestive of possible small new left ventricular thrombus, so I recommend anticoagulation with Eliquis 5 mg twice a day and we will repeat an echo in about 6 months. Thank for the consult. /MELISSA Voice ID: [id number] Report ID: [id number]
[2021-04-17] MEDS ORDERED: PANTOPRAZOLE 40MG TABLET PO SCH (06:30)
--- NOTE | 2021-04-17 08:34 | ECHO ---
HEIGHT: 5 ft 3 in WEIGHT: 150 lb 0 oz DATE OF STUDY: 04/16/[address]: Arcenio Bateman 2-DIMENSIONAL: YES M.MODE: YES DOPPLER: YES COLOR FLOW: YES TDS: NO PORTABLE: NO DEFINITY: NO BUBBLE STUDY: NO DIAGNOSIS: CHEST PAIN CARDIAC HISTORY: CATHERIZATION: SURGERY: PROSTHETIC VALVE: PACEMAKER: MEASUREMENTS (cm) DIASTOLIC (NORMALS) SYSTOLIC (NORMALS) IVSd 0.9 (0.6-1.2) LA Diam 3.6 (1.9-4.0) LVEF 51% LVIDd 4.4 (3.5-5.7) LVIDs 3.3 (2.0-3.5) %FS 26% LVPWd 1.1 (0.6-1.2) Ao Diam 3.1 (2.0-3.7) 2 DIMENSIONAL ASSESSMENT: RIGHT ATRIUM: NORMAL LEFT ATRIUM: NORMAL RIGHT VENTRICLE: NORMAL LEFT VENTRICLE: NORMAL TRICUSPID VALVE: NORMAL MITRAL VALVE: PULMONIC VALVE: NORMAL AORTIC VALVE: NORMAL PERICARDIAL EFFUSION: NONE AORTIC ROOT: NORMAL LEFT VENTRICULAR WALL MOTION: MILD DISTAL ANTEROSEPTAL HYPOKINESIS. DOPPLER/COLOR FLOW: MILD MITRAL REGURGITATION. COMMENTS: NORMAL LEFT VENTRICULAR EJECTION FRACTION 55-60%. SMALL LEFT VENTRICULAR THROMBUS IS PRESENT. MILD MITRAL REGURGITATION. TECHNOLOGIST: Rohan MORRIS
--- OUTSIDE RECORDS SUMMARY | 2021-05-21 05:00 | XMS REPORT | Continuity of Care Document ---
:1950 Author Organization [facility] t Address [address] [place] [address] Care Team Providers Name Role Phone TERESA Attending Clinician Unavailable Adeola Persaud Attending Clinician Unavailable Physician, Primary or Family Admitting Clinician Unavailabl e Payers Payer Name Policy Type Policy Number Effective Date Expiration Date S ource Problems This patient has no known problems. Allergies, Adverse Reactions, Alerts Allergy Allergy Status Severity Reaction(s) Onset Inactive Treating Comm ents Source Name Type Date Date Clinician No Known DA Active U 2019-07 [facility]ie 08-21 Clear s 00:00: Dai 00 [facility] No Known DA Active U 2019-07 [facility] Allergie 08-21 Clear s 00:00: Dai 00 [facility] NO KNOWN Drug Active Univers ALLERGIE Class ity of S [facility] Medications This patient has no known medications. Procedures This patient has no known procedures. Encounters Start End Encounter Admission Attending Care Care Encounter Source Date/Time Date/Time Type Type Clinicians Facility Department ID 2020-06-20 Inpatient HCAPM JEF [id number] [facility] 12:23:00 [id number] [facility] 2021-05-05 2021-05-05 ambulatory [facility] [id number] [facility] 2021-05-04 2021-05-04 [facility] [id number] [facility] 2021-05-01 2021-05-01 Out[facility] [id number] [facility] 2021-05-01 2021-05-01 Outpatient [facility] [id number] [facility] 2021-04-22 2021-04-22 [facility] [id number] [facility] 2021-04-15 2021-04-15 Outpatient [facility] [id number] [facility] 2021-02-17 2021-02-17 Outpatient [facility] [id number] [facility] 2021-02-13 2021-02-13 Out[facility] [id number] [facility] 2020-12-22 2020-12-22 Outpatient Jean-Claude [facility] [id number] [facility] 09:30:00 09:30:00 JAVI [id number] [facility] 2020-06-24 2020-06-24 Outpatient CASSANDRA Persaud LABO [id number] [facility] 23:22:00 23:22:00 Murtaza [id number] [facility] Results Test Description Test Time Test Comments Results Result Comments Source GLUCOSE BEDSIDE TESTING 2020-06-30 11:56:00 Test Item Value Reference Range Interpretation Comme nts GLUCOSE BEDSIDE TESTING (test code = GLUBED) 187 mg/dL 70-110 H GLUCOSE BEDSIDE [id number] 08:24:00 Test Item Value Reference Range Interpretation Comments GLUCOSE BEDSIDE TESTING (test code 167 mg/dL 70-110 H = GLUBED) GLUCOSE BEDSIDE [id number] 20:51:00 Test Item Value Reference Range Interpretation Comments GLUCOSE BEDSIDE TESTING (test code 219 mg/dL 70-110 H = GLUBED) GLUCOSE BEDSIDE [id number] 17:31:00 Test Item Value Reference Range Interpretation Comments GLUCOSE BEDSIDE TESTING (test code = 96 mg/dL 70-110 N GLUBED) GLUCOSE BEDSIDE [id number] 12:08:00 Test Item Value Reference Range Interpretation Comments GLUCOSE BEDSIDE TESTING (test code 215 mg/dL 70-110 H = GLUBED) GLUCOSE BEDSIDE [id number] 08:14:00 Test Item Value Reference Range Interpretation Comments GLUCOSE BEDSIDE TESTING (test code 204 mg/dL 70-110 H = GLUBED) GLUCOSE BEDSIDE [id number] 20:32:00 Test Item Value Reference Range Interpretation Comments GLUCOSE BEDSIDE TESTING (test code 242 mg/dL 70-110 H = GLUBED) GLUCOSE BEDSIDE [id number] 17:18:00 Test Item Value Reference Range Interpretation Comments GLUCOSE BEDSIDE TESTING (test code 236 mg/dL 70-110 H = GLUBED) GLUCOSE BEDSIDE [id number] 12:33:00 Test Item Value Reference Range Interpretation Comments GLUCOSE BEDSIDE TESTING (test code 224 mg/dL 70-110 H = GLUBED) GLUCOSE BEDSIDE [id number] 08:31:00 Test Item Value Reference Range Interpretation Comments GLUCOSE BEDSIDE TESTING (test code 164 mg/dL 70-110 H = GLUBED) CBC W/AUTO [id number] 06:15:00 Test Item Value Reference Range Interpretation [...] NO DIFF/SCN CRITERIA = MDIFF) GLUCOSE BEDSIDE [id number] 21:03:00 Test Item Value Reference Range Interpretation Comments GLUCOSE BEDSIDE TESTING (test code 319 mg/dL 70-110 H = GLUBED) GLUCOSE BEDSIDE [id number] 17:20:00 Test Item Value Reference Range Interpretation Comments GLUCOSE BEDSIDE TESTING (test code 192 mg/dL 70-110 H = GLUBED) GLUCOSE BEDSIDE [id number] 12:30:00 Test Item Value Reference Range Interpretation Comments GLUCOSE BEDSIDE TESTING (test code 286 mg/dL 70-110 H = GLUBED) GLUCOSE BEDSIDE [id number] 08:24:00 Test Item Value Reference Range Interpretation Comments GLUCOSE BEDSIDE TESTING (test code 193 mg/dL 70-110 H = GLUBED) GLUCOSE BEDSIDE [id number] 20:46:00 Test Item Value Reference Range Interpretation Comments GLUCOSE BEDSIDE TESTING (test code 161 mg/dL 70-110 H = GLUBED) GLUCOSE BEDSIDE [id number] 16:40:00 Test Item Value Reference Range Interpretation Comments GLUCOSE BEDSIDE TESTING (test code 302 mg/dL 70-110 H = GLUBED) GLUCOSE BEDSIDE [id number] 12:17:00 Test Item Value Reference Range Interpretation Comments GLUCOSE BEDSIDE TESTING (test code 330 mg/dL 70-110 H = GLUBED) GLUCOSE BEDSIDE [id number] 08:39:00 Test Item Value Reference Range Interpretation Comments GLUCOSE BEDSIDE TESTING (test code 144 mg/dL 70-110 H = GLUBED) BASIC METABOLIC [id number] 06:08:00 Test Item Value Reference Range Interpretation [...] CA) 8.7 MG/DL 8.5-10.1 N CBC W/AUTO [id number] 05:50:00 Test Item Value Reference Range Interpretation [...] NO DIFF/SCN CRITERIA = MDIFF) GLUCOSE BEDSIDE [id number] 20:09:00 Test Item Value Reference Range Interpretation Comments GLUCOSE BEDSIDE TESTING (test code 304 mg/dL 70-110 H = GLUBED) GLUCOSE BEDSIDE [id number] 19:39:00 Test Item Value Reference Range Interpretation Comments GLUCOSE BEDSIDE TESTING (test code 175 mg/dL 70-110 H = GLUBED) Coronavirus 2019 nCoV [id number] 11:34:00 Test Item Value Reference Range Interpretation Comments Coronavirus 2019 nCoV Bedside (test Positive Negative code = [id number]) BASIC METABOLIC [id number] 05:48:00 Test Item Value Reference Range Interpretation [...] CA) 8.8 MG/DL 8.5-10.1 N CBC W/AUTO [id number] 05:34:00 Test Item Value Reference Range Interpretation [...] NO DIFF/SCN CRITERIA = MDIFF) GLUCOSE BEDSIDE [id number] 20:14:00 Test Item Value Reference Range Interpretation Comments GLUCOSE BEDSIDE TESTING (test code 231 mg/dL 70-110 H = GLUBED) GLUCOSE BEDSIDE [id number] 16:38:00 Test Item Value Reference Range Interpretation Comments GLUCOSE BEDSIDE TESTING (test code 225 mg/dL 70-110 H = GLUBED) GLUCOSE BEDSIDE [id number] 12:08:00 Test Item Value Reference Range Interpretation Comments GLUCOSE BEDSIDE TESTING (test code 307 mg/dL 70-110 H = GLUBED) GLUCOSE BEDSIDE [id number] 08:28:00 Test Item Value Reference Range Interpretation Comments GLUCOSE BEDSIDE TESTING (test code 114 mg/dL 70-110 H = GLUBED) BASIC METABOLIC [id number] 06:55:00 Test Item Value Reference Range Interpretation [...] CA) 8.6 MG/DL 8.5-10.1 N CBC W/AUTO [id number] 06:37:00 Test Item Value Reference Range Interpretation [...] NO DIFF/SCN CRITERIA = MDIFF) GLUCOSE BEDSIDE [id number] 20:59:00 Test Item Value Reference Range Interpretation Comments GLUCOSE BEDSIDE TESTING (test code 112 mg/dL 70-110 H = GLUBED) GLUCOSE BEDSIDE [id number] 16:32:00 Test Item Value Reference Range Interpretation Comments GLUCOSE BEDSIDE TESTING (test code 240 mg/dL 70-110 H = GLUBED) GLUCOSE BEDSIDE [id number] 12:49:00 Test Item Value Reference Range Interpretation Comments GLUCOSE BEDSIDE TESTING (test code 266 mg/dL 70-110 H = GLUBED) GLUCOSE BEDSIDE [id number] 08:35:00 Test Item Value Reference Range Interpretation Comments GLUCOSE BEDSIDE TESTING (test code 186 mg/dL 70-110 H = GLUBED) CBC W/AUTO [id number] 06:52:00 Test Item Value Reference Range Interpretation [...] DIFF REQUIRED NO DIFF/SCN CRITERIA SLIDE R SARAH (test code = MDIFF) CONSISTA NT WITH AUTO DIFFERENTI AL. BASIC METABOLIC [id number] 06:28:00 Test Item Value Reference Range Interpretation [...] code = CA) 8.8 MG/DL 8.5-10.1 N [id number] 06:28:00 Test Item Value Reference Range Interpretation Comments PHOSPHOROUS (test code = PHOS) 2.6 MG/DL 2.5-4.9 N LACTIC DEHYDROGENASE(LDH)2020-06-23 06:28:00 Test Item Value Reference Range Interpretation Comments LACTIC DEHYDROGENASE(LDH) (test 271 Unit/L 84-246 H code = LDH) [id number] 06:28:00 Test Item Value Reference Range Interpretation Comments MAGNESIUM (test code = MAG) 2.1 MG/DL 1.8-2.4 N CBC W/AUTO [id number] 06:15:00 Test Item Value Reference Range Interpretation [...] code = DIFF/SCN CRITERIA MDIFF) GLUCOSE BEDSIDE [id number] 19:43:00 Test Item Value Reference Range Interpretation Comments GLUCOSE BEDSIDE TESTING (test code 405 mg/dL 70-110 H = GLUBED) GLUCOSE BEDSIDE [id number] 16:28:00 Test Item Value Reference Range Interpretation Comments GLUCOSE BEDSIDE TESTING (test code 299 mg/dL 70-110 H = GLUBED) GLUCOSE BEDSIDE [id number] 12:20:00 Test Item Value Reference Range Interpretation Comments GLUCOSE BEDSIDE TESTING (test code 273 mg/dL 70-110 H = GLUBED) GLUCOSE BEDSIDE [id number] 08:12:00 Test Item Value Reference Range Interpretation Comments GLUCOSE BEDSIDE TESTING (test code 118 mg/dL 70-110 H = GLUBED) BASIC METABOLIC [id number] 06:50:00 Test Item Value Reference Range Interpretation [...] code = CA) 9.3 MG/DL 8.5-10.1 N [id number] 06:50:00 Test Item Value Reference Range Interpretation Comments PHOSPHOROUS (test code = PHOS) 2.6 MG/DL 2.5-4.9 N LACTIC DEHYDROGENASE(LDH)2020-06-22 06:50:00 Test Item Value Reference Range Interpretation Comments LACTIC DEHYDROGENASE(LDH) (test 326 Unit/L 84-246 H code = LDH) [id number] 06:50:00 Test Item Value Reference Range Interpretation Comments MAGNESIUM (test code = MAG) 1.7 MG/DL 1.8-2.4 L [id number] 06:47:00 Test Item Value Reference Range Interpretation Comments D-DIMER (test code = DDIMER) 3044 ng/mLFEU 215-500 HH CBC W/AUTO [id number] 06:39:00 Test Item Value Reference Range Interpretation [...] NO DIFF/SCN CRITERIA = MDIFF) GLUCOSE BEDSIDE [id number] 21:52:00 Test Item Value Reference Range Interpretation Comments GLUCOSE BEDSIDE TESTING (test code 195 mg/dL 70-110 H = GLUBED) GLUCOSE BEDSIDE [id number] 16:38:00 Test Item Value Reference Range Interpretation Comments GLUCOSE BEDSIDE TESTING (test code 374 mg/dL 70-110 H = GLUBED) GLUCOSE BEDSIDE [id number] 12:17:00 Test Item Value Reference Range Interpretation Comments GLUCOSE BEDSIDE TESTING (test code 420 mg/dL 70-110 H = GLUBED) GLUCOSE BEDSIDE [id number] 08:22:00 Test Item Value Reference Range Interpretation Comments GLUCOSE BEDSIDE TESTING (test code 238 mg/dL 70-110 H = GLUBED) CBC W/AUTO [id number] 05:54:00 Test Item Value Reference Range Interpretation [...] (test code NO DIFF/SCN CRITERIA = MDIFF) [id number] 05:21:00 Test Item Value Reference Range Interpretation Comments D-DIMER (test code = DDIMER) 4184 ng/mLFEU 215-500 HH BASIC METABOLIC [id number] 05:21:00 Test Item Value Reference Range Interpretation [...] code = CA) 8.5 MG/DL 8.5-10.1 N [id number] 05:21:00 Test Item Value Reference Range Interpretation Comments PHOSPHOROUS (test code = PHOS) 2.9 MG/DL 2.5-4.9 N LACTIC DEHYDROGENASE(LDH)2020-06-21 05:21:00 Test Item Value Reference Range Interpretation Comments LACTIC DEHYDROGENASE(LDH) (test 271 Unit/L 84-246 H code = LDH) [id number] 05:21:00 Test Item Value Reference Range Interpretation Comments MAGNESIUM (test code = MAG) 1.4 MG/DL 1.8-2.4 L CBC W/AUTO [id number] 05:04:00 Test Item Value Reference Range Interpretation [...] code = DIFF/SCN CRITERIA MDIFF) THROMBOPLASTIN TIME [id number] 02:51:00 Test Item Value Reference Range Interpretation Comments THROMBOPLASTIN TIME PARTIAL 160.7 SECONDS 26-35 HH (test code = PTT) GLUCOSE BEDSIDE [id number] 21:12:00 Test Item Value Reference Range Interpretation Comments GLUCOSE BEDSIDE TESTING (test code 297 mg/dL 70-110 H = GLUBED) THROMBOPLASTIN TIME [id number] 20:35:00 Test Item Value Reference Range Interpretation Comments THROMBOPLASTIN TIME PARTIAL 35.2 SECONDS 26-35 H (test code = PTT) GLUCOSE BEDSIDE [id number] 16:25:00 Test Item Value Reference Range Interpretation [...] = LDL/HDL) 0.80 Ratio 1.48-3.22 Avg L [id number] 15:14:00 Test Item Value Reference Range Interpretation [...] yby method. Completed by Nursing: NO- CTA [id number] 14:47:00 [facility] 1950 Sex: F Name: LINDA MENEZES [facility] : 1950 Age/S: 70 / F [address] Unit #: [id number] Loc: [place] [address] Phys: Nito Shipley MD Acct: [id number] Dis Date: Status: REG ER PHONE #: [phone] Exam Date: 06/20/2020 0357 FAX #: Reason: Chest Pain r/o PE EXAMS: CPT: [id number] CTA CHEST 58312 CTA chest, contrast-enhanced (pulmonary embolism protocol }.Reconstructed [...] findings. PAGE 1 Signed Report (CONTINUED) Name: LINDA MENEZES : 1950 Age/S:70 / F [address] Unit #: [id number] Loc: [place] [address] Phys: Nito Shipley MD Acct: [id number] Dis Date: Status: REG ER PHONE #: [phone] Exam Date: 06/20/2020 1426 FAX #: Reason: Chest Pain r/o PE EXAMS: CPT: [id number] CTA CHEST 49394 <Continued> Cardiomegaly with small to moderate pericardial effusion. Bilateral pneumonia. Location: 9 at 1447 Reported and signed by: Ricky Alegre M.D CC: Nito hSipley MD Technologist:Janett Graf RT(R)(CT)(MRI) CTDI: DLP: Trnscb Date/Time:06/20/2020 (1447) t.SDR.RCM1 Orig Print D/T: S: 06/20/2020 (1989) PAGE 2 Signed ReportCoronavirus 2019 nCoV [id number] 13:48:00 Test Item Value Reference Range Interpretation Comments Coronavirus 2019 nCoV Bedside (test Positive Negative code = [id number]) BASIC METABOLIC [id number] 13:24:00 Test Item Value Reference Range Interpretation [...] Unit/L 26-192 N CK) Completed by Nursing: [id number] 13:24:00 Test Item Value Reference Range Interpretation [...] delmy yby method. Completed by Nursing: NOPROTHROMBIN [id number] 13:03:00 Test Item Value Reference Range Interpretation Comments PT PATIENT (test code = PTP) 15.8 SECONDS 9.3-12.9 H INTERNATIONAL NORMAL RATIO 1.39 INR Unit 0.8-1.2 H (test code = INR) THROMBOPLASTIN TIME [id number] 13:03:00 Test Item Value Reference Range Interpretation Comments THROMBOPLASTIN TIME PARTIAL 18.0 SECONDS 26-35 L (test code = PTT) - XR CHEST 1 [id number] 13:02:00 [facility] : 1950 Sex: F [facility]: [facility] [place] [facility] 1950 Age/S: 70 / [id number] Unit #: [id number] Loc: [place] [address] Phys: Nito Shipley MD Acct: [id number] Dis Date: Status: REG ER PHONE #: [phone] Exam Date: 06/20/2020 1243 FAX #: Reason: chest pain EXAMS: CPT: [id number] XR CHEST 1 V 16467 Fluoro Time: DAP (Gy m2): Air Kerma (mGy): HISTORY: Chest pain. Location: C3 COMPARISON:None FINDINGS: Heart is mildly prominent. Aortic calcifications are present. There is patchy mixed interstitial and airspace opacities bilaterally compatible with pneumonia. No pneumothorax. IMPRESSION: 1. Patchy bilateral opacities compatible with pneumonia. at 1302 Reported and signed by: Ricky Munoz M.D. CC: Nito Shipley MD PAGE 1 Signed Report Name: LINDA MENEZES [facility] : 1950ge/S: 70 / [address] Unit #: [id number] Loc: [place] [address] Phys: Nito Shipley MD Acct: [id number] Dis Date: Status: REG ER PHONE#: [phone] Exam Date: 06/20/2020 1249 FAX #: Reason: chest pain EXAMS: CPT: [id number] XR CHEST 1 V 54502 Fluoro Time: DAP (Gy m2): Air Kerma (mGy): <Continued> Technologist: Anna Maldonado RT(R) Trnscb Date/Time: 06/20/2020 (2649) [id number] Orig Print D/T: S: 06/20/2020 (6740) PAGE 2 Signed ReportC W/O [id number] 12:58:00 Test Item Value Reference Range Interpretation [...]
== END 2021-04-16 19:00 | disposition home or self-care (01) ==
LOC: ER 10:13 → INTOOBSV 15:28 → ERHOLD 15:28 → 4TH 21:02
PROVIDERS: ADMIT Internal Medicine; ATTEND Internal Medicine
DX: E87.5 Hyperkalemia (principal); I13.0 Hypertensive heart and chronic kidney disease with heart failure and stage 1 through stage 4 chronic kidney disease, or unspecified chronic kidney disease; I50.22 Chronic systolic (congestive) heart failure; N18.30 Chronic kidney disease, stage 3 unspecified; N17.9 Acute kidney failure, unspecified; E11.22 Type 2 diabetes mellitus with diabetic chronic kidney disease; R07.89 Other chest pain; I51.3 Intracardiac thrombosis, not elsewhere classified; E11.40 Type 2 diabetes mellitus with diabetic neuropathy, unspecified; G25.81 Restless legs syndrome; E03.9 Hypothyroidism, unspecified; K21.9 Gastro-esophageal reflux disease without esophagitis; M10.9 Gout, unspecified; K52.9 Noninfective gastroenteritis and colitis, unspecified; Z91.14 Patient's other noncompliance with medication regimen; Z79.01 Long term (current) use of anticoagulants; Z79.4 Long term (current) use of insulin; Z90.49 Acquired absence of other specified parts of digestive tract; Z20.822 Contact with and (suspected) exposure to COVID-19; Z82.49 Family history of ischemic heart disease and other diseases of the circulatory system; Z83.3 Family history of diabetes mellitus; Z82.3 Family history of stroke; Z80.3 Family history of malignant neoplasm of breast
CPT/HCPCS: 93005; 93306; 85025 ×2; 80048 ×2; 36415; 83735 ×2; 84100; 85610; 82947 ×4; 80076; 84443; 81003; 84484 ×4; 84439; 83880; 76377; 74176; 71045; 96374; 99285; U0003; J1644 ×2; C9113; J3475

== ENCOUNTER 2021-05-04 07:30 | Emergency (ER) | payer OTHER ==
[2021-05-04 08:07] LABS: Absolute Lymphocytes (CBC) 0.8 K/uL (0.7-4.9); Basophils % 0.3 % (0-1.3); Lymphocytes % 8.5 % (15.3-44.8); MPV 8.1 fL (7.6-11.3); RBC Red Blood Cell Count 4.26 M/uL (3.86-4.86)
[2021-05-04] MEDS ORDERED: ONDANSETRON 4 MG/2 ML VIAL ONE (08:18)
[2021-05-04] MEDS ORDERED: NA CHLORIDE 0.9% 1,000 ML ONE (08:19)
[2021-05-04 10:53] LABS: Albumin 3.7 g/dL (3.4-5.0); Potassium 3.9 mmol/L (3.5-5.1)
[2021-05-04 11:00] LABS: Bilirubin Direct 0.1 mg/dL (0-0.2); Bilirubin Total 0.5 mg/dL (0.2-1.0)
--- NOTE | 2021-05-04 11:54 | RAD REPORT ---
EXAM DESCRIPTION: CTAbdomen Pelvis W Contrast - 05/04/2021 11:27 am CLINICAL HISTORY: Abdominal pain. ABD PAIN COMPARISON: Abdomen Pelvis W Contrast dated 09/23/2020; Abdomen Pelvis W Contrast dated 8; CT ABD PELVIS W CONTRAST dated 09/23/2013; Stone Protocol dated 04/15/2021 TECHNIQUE: Biphasic CT imaging of the abdomen and pelvis was performed with 100 ml non-ionic IV cont rast. All CT scans are performed using dose optimization technique as appropriate and may include automated exposure control or mA/KV adjustment according to patient size. FINDINGS: The lung bases are clear.Cholecystectomy clips. The liver, spleen, pancreas, adrenal glands and kidneys are within normal limits. No bowel obstruction, free air, free fluid or abscess. The appendix is not identified as a discrete structure, however, no secondary findings of appendicitis are identified. No evidence of significan t lymphadenopathy. T11 vertebroplasty again seen. Mild compression deformity T12 and L3 are stable. Moderate lumbar dege nerative changes at L4-5 and L5-S1. IMPRESSION: No acute intra-abdominal or pelvic finding. No significant change in the appearance of t he examination since 04/15/2021.
--- NOTE | 2021-05-04 12:39 | ER ---
Nurse's Notes [facility] Name: Linda Menezes Age: 70 yrs Sex: Female : 1950 Arrival Date: 05/04/2021 Time: 07:31 Bed 23 Private MD: Capo Castellanos Diagnosis: Vomiting;Diarrhea, unspecified Presentation: 05/04 07:43 Chief complaint: Patient states: N/V/D foe three days. Hx of stage 3 kidney disease and ch5 Type 2 diabetes. Coronavirus screen: Vaccine status: Patient reports receiving the 2nd dose of the covid vaccine. 07:43 Method Of Arrival: Ambulatory [facility] 07:43 Ebola Screen: Patient negative for fever greater than or equal to 101.5 degrees ch5 Fahrenheit, and additional compatible Ebola Virus Disease symptoms Patient denies exposure to infectious person. Patient denies travel to an Ebola-affected area in the 21 days before illness onset. Initial Sepsis Screen: Does the patient meet any 2 criteria? No. Patient's initial sepsis screen is negative. Does the patient have a suspected source of infection? No. Patient's initial sepsis screen is negative. Risk Assessment: Do you want to hurt yourself or someone else? Patient reports no desire to harm self or others. 07:43 Onset of symptoms was May 01, 2021. [facility] 07:43 Acuity: ALHAJI 3 ch5 Triage Assessment: 07:45 General: Appears in no apparent distress. Behavior is calm, cooperative. Pain: 5 Complains of pain in right lower quadrant and left lower quadrant. GI: Reports lower abdominal pain, diarrhea, nausea, vomiting. Historical: - Allergies: 07:45 No Known Allergies; ch5 - PMHx: 07:45 Kidney disease; Type 2 diabetes mellitus; ch5 - Immunization history:: Adult Immunizations up to date, Client reports receiving the 2nd dose of the Covid vaccine. - Social history:: Smoking status: Patient denies any tobacco usage or history of. Screenin:46 Abuse screen: Denies threats or abuse. Denies injuries from another. Nutritional ch5 screening: No deficits noted. Tuberculosis screening: No symptoms or risk factors identified. Fall Risk None identified. Assessment: 07:46 Reassessment: No changes from previously documented assessment. 5 07:55 General: Appears in no apparent distress. Behavior is calm, cooperative, appropriate ap3 for age, Reports fatigue for >3 days. Pain: Denies pain. Neuro: Level of Consciousness is awake, alert, obeys commands, Oriented to person, place, time, situation, Speech is normal. Cardiovascular: Patient's skin is warm and dry. Respiratory: Denies cough, shortness of breath. Respiratory: Airway is patent Respiratory effort is even, unlabored. GI: Reports diarrhea, vomiting, since >3 days. 08:30 Reassessment:. ap3 09:05 Reassessment: Patient and/or family updated on plan of care and expected duration. Pain ap3 level reassessed. Patient is alert, oriented x 3, equal unlabored respirations, skin warm/dry/pink. 12:46 Reassessment: Patient appears in no apparent distress at this time. Patient and/or ss family updated on plan of care and expected duration. Pain level reassessed. Patient is alert, oriented x 3, equal unlabored respirations, skin warm/dry/pink. Derm: Skin is pink, warm \T\ dry. Vital Signs: 07:43 BP 122 / 59; Pulse 82; Resp 18; Temp 98.0(O); Pulse Ox 99% on R/A; Weight 68.04 kg; ch5 Height 5 ft. 3 in. (160.02 cm); Pain 2/10; 07:56 BP 126 / 59; Pulse 73; Resp 18; Pulse Ox 97% on R/A; ap3 08:32 BP 116 / 55 LA (auto/reg); Pulse 73; Resp 16; Pulse Ox 97% on R/A; ap3 09:10 BP 111 / 56; Pulse 70; Resp 18; Pulse Ox 98% on R/A; ap3 10:41 BP 118 / 57; Pulse 78; Resp 17; Pulse Ox 98% on R/A; ap3 07:43 Body Mass Index 26.57 (68.04 kg, 160.02 cm) 5 ED Course: 07:31 Patient arrived in ED. am2 07:31 Capo Castellanos DO is Private Physician. am2 07:42 Trevin Smith PA is PHCP. jr8 07:42 Carmina Castellanos MD is Attending Physician. jr8 07:43 Erik Moralez, SENG is Primary Nurse. ch5 07:45 Triage completed. ch5 07:45 Arm band placed on right wrist. ch5 07:46 Patient has correct armband on for positive identification. Bed in low position. Call 5 light in reach. Side rails up X2. 07:46 No provider procedures requiring assistance completed. ch5 07:50 Inserted saline lock: 22 gauge in right forearm, using aseptic technique. Blood ap3 collected. 07:54 Basic Metabolic Panel Sent. ch5 07:54 CBC with Diff Sent. ch5 07:55 Hepatic Function Sent. ch5 07:55 Lipase Sent. ch5 08:09 EKG done, by ED staff, reviewed by Trevin PERES. mb4 11:27 CT Abd/Pelvis - IV Contrast Only In Process Unspecified. EDMS 12:38 Capo Castellanos DO is Referral Physician. jr8 12:46 IV discontinued, intact, bleeding controlled, No redness/swelling at site. Pressure ss dressing applied. Administered Medications: 07:54 Drug: NS 0.9% 1000 ml Route: IV; Rate: 1000 ml; Site: right antecubital; ch5 08:54 Follow up: IV Status: Completed infusion; IV Intake: 1000ml ap3 07:54 Drug: Zofran (Ondansetron) 4 mg Route: IVP; Site: right antecubital; ch5 08:54 Follow up: Response: No adverse reaction ap3 Intake: 08:54 IV: 1000ml; Total: 1000ml. ap3 Outcome: 12:38 Discharge ordered by MD. jr8 12:46 Condition: good ss 12:46 Discharge instructions given to patient, family, Instructed on discharge instructions, follow up and referral plans. medication usage, Demonstrated understanding of instructions, follow-up care, medications, Prescriptions given X 2. 12:46 Discharged to home ambulatory. ss 12:46 Patient left the ED. ss Signatures: Dispatcher [employer] EDMO Chantelle Varela RN RN ss Roszak, Josh, PA PA jr8 Gretel Babcock Amanda, RN RN ap3 Madiha Lutz mb4 Erik Moralez RN RN ch5
--- NOTE | 2021-05-04 12:39 | EDPHYS ---
Physician Documentation [facility] Name: Linda Menezes Age: 70 yrs Sex: Female : 1950 Arrival Date: 05/04/2021 Time: 07:31 Bed 23 Private MD: [facility] ED Physician Carmina Castellanos HPI: 05/04 08:31 This 70 yrs old Female presents to ER via Ambulatory with complaints of jr8 Diarrhea, Vomiting. 08:31 Onset: The symptoms/episode began/occurred acutely, 3 day(s) ago. Possible causes: jr8 unknown. The symptoms are aggravated by food , The symptoms are alleviated by nothing. Associated signs and symptoms: The patient has no apparent associated signs or symptoms. Severity of symptoms: At their worst the symptoms were moderate in the emergency department the symptoms are unchanged. The patient has not experienced similar symptoms in the past. The patient has not recently seen a physician. Historical: - Allergies: 07:45 No Known Allergies; ch5 - PMHx: 07:45 Kidney disease; Type 2 diabetes mellitus; ch5 - Immunization history:: Adult Immunizations up to date, Client reports receiving the 2nd dose of the Covid vaccine. - Social history:: Smoking status: Patient denies any tobacco usage or history of. ROS: 08:31 Eyes: Negative for injury, pain, redness, and discharge, ENT: Negative for injury, jr8 pain, and discharge, Neck: Negative for injury, pain, and swelling, Cardiovascular: Negative for chest pain, palpitations, and edema, Respiratory: Negative for shortness of breath, cough, wheezing, and pleuritic chest pain, Back: Negative for injury and pain, MS/Extremity: Negative for injury and deformity, Skin: Negative for injury, rash, and discoloration, Neuro: Negative for headache, weakness, numbness, tingling, and seizure. 08:31 Abdomen/GI: Positive for nausea, vomiting, and diarrhea, abdominal cramps, Negative for hematemesis, black/tarry stool, rectal pain, rectal bleeding, bowel incontinence, flatulence. Exam: 08:31 Constitutional: This is a well developed, well nourished patient who is awake, alert, jr8 and in no acute distress. Cardiovascular: Regular rate and rhythm with a normal S1 and S2. No gallops, murmurs, or rubs. Normal PMI, no JVD. No pulse deficits. Respiratory: Lungs have equal breath sounds bilaterally, clear to auscultation and percussion. No rales, rhonchi or wheezes noted. No increased work of breathing, no retractions or nasal flaring. Abdomen/GI: Soft, non-tender, with normal bowel sounds. No distension or tympany. No guarding or rebound. No evidence of tenderness throughout. Back: No spinal tenderness. No costovertebral tenderness. Full range of motion. Skin: Warm, dry with normal turgor. Normal color with no rashes, no lesions, and no evidence of cellulitis. MS/ Extremity: Pulses equal, no cyanosis. Neurovascular intact. Full, normal range of motion. Neuro: Awake and alert, GCS 15, oriented to person, place, time, and situation. Cranial nerves II-XII grossly intact. Motor strength 5/5 in all extremities. Sensory grossly intact. Vital Signs: 07:43 BP 122 / 59; Pulse 82; Resp 18; Temp 98.0(O); Pulse Ox 99% on R/A; Weight 68.04 kg; ch5 Height 5 ft. 3 in. (160.02 cm); Pain 2/10; 07:56 BP 126 / 59; Pulse 73; Resp 18; Pulse Ox 97% on R/A; ap3 08:32 BP 116 / 55 LA (auto/reg); Pulse 73; Resp 16; Pulse Ox 97% on R/A; ap3 09:10 BP 111 / 56; Pulse 70; Resp 18; Pulse Ox 98% on R/A; ap3 10:41 BP 118 / 57; Pulse 78; Resp 17; Pulse Ox 98% on R/A; ap3 07:43 Body Mass Index 26.57 (68.04 kg, 160.02 cm) [facility] MDM: 07:42 Patient medically screened. jr8 12:27 Data reviewed: vital signs, nurses notes, lab test result(s), radiologic studies, CT jr8 scan. Data interpreted: Pulse oximetry: on room air is 98 %. Interpretation: normal. Counseling: I had a detailed discussion with the patient and/or guardian regarding: the historical points, exam findings, and any diagnostic results supporting the discharge/admit diagnosis, lab results, radiology results, the need for outpatient follow up, a family practitioner, to return to the emergency department if symptoms worsen or persist or if there are any questions or concerns that arise at home. ED course: Discussed with patient that she had elevated Lipase. CT scan with contrast did not show any pancreatic inflammation. Could be that the lipase is elevated from vomiting. No other acute billiary findings noted as well. Patient has not had any abdominal discomfort with palpation. Hemodynamically stable and without acute vomiting here. Has been afebrile as well. Recommended that we put her on cipro and nausea medicine. If worse or she were to run fevers or have pain to come back for further evaluation. Patient good with plan at this time . 05/04 07:49 Order name: Basic Metabolic Panel; Complete Time: 11:07 8 05/04 07:49 Order name: CBC with Diff; Complete Time: 08:18 8 05/04 07:49 Order name: Hepatic Function; Complete Time: 11:07 jr8 05/04 07:49 Order name: Lipase; Complete Time: 11:07 8 05/04 07:57 Order name: Glucose, Ancillary Testing EDMS 05/04 11:08 Order name: CT Abd/Pelvis - IV Contrast Only; Complete Time: 11:58 jr8 05/04 07:49 Order name: IV Saline Lock; Complete Time: 07:54 jr8 05/04 07:49 Order name: Labs collected and sent; Complete Time: 07:54 jr8 05/04 10:15 Order name: EKG Electrocardiogram EDMS Administered Medications: 07:54 Drug: NS 0.9% 1000 ml Route: IV; Rate: 1000 ml; Site: right antecubital; ch5 08:54 Follow up: IV Status: Completed infusion; IV Intake: 1000ml ap3 07:54 Drug: Zofran (Ondansetron) 4 mg Route: IVP; Site: right antecubital; ch5 08:54 Follow up: Response: No adverse reaction ap3 Disposition: 05/05 08:50 Co-signature as Attending Physician, Carmina Castellanos MD I agree with the assessment and sp3 plan of care. Disposition Summary: 05/04/21 12:38 Discharge Ordered Location: Home jr8 Problem: new jr8 Symptoms: have improved jr8 Condition: Stable jr8 Diagnosis - Vomiting jr8 - Diarrhea, unspecified jr8 Followup: jr8 - With: Capo Castellanos DO - When: 2 - 3 days - Reason: Recheck today's complaints, Continuance of care, Re-evaluation by your physician Discharge Instructions: - Discharge Summary Sheet jr8 - Diarrhea, Adult jr8 - Vomiting, Adult jr8 Forms: - Medication Reconciliation Form jr8 - Thank You Letter jr8 - Antibiotic Education jr8 - Prescription Opioid Use jr8 Prescriptions: - Cipro 500 mg Oral Tablet - take 1 tablet by ORAL route every 12 hours for 7 days; 14 tablet; Refills: 0, jr8 Product Selection Permitted - Zofran 4 mg Oral Tablet - take 1 tablet by ORAL route every 12 hours As needed; 20 tablet; Refills: 0, jr8 Product Selection Permitted Signatures: Dispatcher [employer] EDMS Trevin Smith PA PA jr8 Carmina Castellanos MD MD sp3 RichlandErik RN RN ch5 Gretel Melgar RN ap3
[2021-05-04 12:56] VITALS: TEMP 98
[2021-05-04 13:01] VITALS: O2SAT 98
[2021-05-04 13:03] VITALS: BP 118/57
== END 2021-05-04 12:46 | disposition home or self-care (01) ==
LOC: ER 07:30
DX: R19.7 Diarrhea, unspecified (principal); E11.9 Type 2 diabetes mellitus without complications
CPT/HCPCS: 96361; 93005; 85025; 80048; 36415; 82947; 80076; 83690; 74177; 96374; 99284; Q9967; J7030; J2405

== ENCOUNTER 2021-10-13 08:58 | Observation (INO) | payer OTHER ==
--- OUTSIDE RECORDS SUMMARY | 2021-10-13 09:03 | XMS REPORT | Continuity of Care Document ---
:1950 Author Organization [facility] t Address [address] [place] [address] Care Team Providers Name Role Phone Niya Castellanos Attending Clinician Unavailable TERESA Attending Clinician Unavailable Adeola Persaud Attending [...] Allergie 08-21 Clear s 00:00: Dai 00 [facility] No Known DA Active U 2019-07 [facility] Allergie 08-21 Clear s 00:00: Dai 00 [facility] NO KNOWN Drug Active Univers ALLERGIE [facility] Medications This patient has no known medications. Procedures This patient has no known procedures. Encounters Start End Encounter Admission Attending Care Care Encounter Source Date/Time Date/Time Type Type Clinicians Facility Department ID 2021-09-09 Outpatient Emanuel [facility] [id number] [facility] 11:11:[address] [facility] Clinics 2021-08-05 [facility] 14[facility]:46 [facility] [id number] [facility] 2021-08-05 [facility] 14:[facility] [id number] [facility] 2021-08-05 [facility] 13:59:27 [facility] [id number] [facility] 2021-08-05 [facility] 13:44:29 [place] [id number] [facility] 2021-08-05 [facility] 13:35:22 [facility] [id number] [facility] 2020-06-20 Inpatient HCAPM JEF [id number] [facility] 12:23:00 [id number] [facility] 2021-09-16 2021-09-16 ambulatory [facility] [id number] [facility] 2021-09-16 2021-09-16 ambulatory [facility] [id number] [facility] 2021-09-09 2021-09-09 ambulatory [facility] [id number] [facility] 2021-05-28 2021-05-28 ambulatory [facility] [id number] [facility] 2021-05-05 2021-05-05 ambulatory [facility] [id number] [facility] 2021-05-04 2021-05-04 Outpatient [facility] [id number] [facility] 2021-05-01 2021-05-01 [facility] [id number] [facility] 2021-05-01 2021-05-01 [facility] [id number] [facility] 2021-04-22 2021-04-22 [facility] [id number] [facility] 2021-04-15 2021-04-15 [facility] [id number] [facility] 2021-02-17 2021-02-17 [facility] [id number] [facility] 2021-02-13 2021-02-13 [facility] [id number] [facility] 2020-12-22 2020-12-22 Outpatient Jean-Claude MOORE [facility] [id number] [facility] 09:30:00 09:30:00 JAVI [id number] [facility] 2020-06-24 2020-06-24 Outpatient CASSANDRA Persaud LABO [id number] [facility] 23:22:00 23:22:00 Murtaza [id number] [facility] Results Test Description Test Time Test Comments Results Result Comments Source GLUCOSE BEDSIDE TESTING 2020-06-30 11:56:00 Test Item Value Reference Range Interpretation Comme nts GLUCOSE BEDSIDE TESTING (test code = GLUBED) 187 mg/dL 70-110 H GLUCOSE BEDSIDE [id number] 08:24:00 Test Item Value Reference Range Interpretation Comments GLUCOSE BEDSIDE TESTING (test code 167 mg/dL 70-110 H = GLUBED) GLUCOSE BEDSIDE [id number] 20:51:00 Test Item Value Reference Range Interpretation Comments GLUCOSE BEDSIDE TESTING (test code 219 mg/dL 70-110 H = GLUBED) GLUCOSE BEDSIDE [id number] 17:31:00 Test Item Value Reference Range Interpretation Comments GLUCOSE BEDSIDE TESTING (test code = 96 mg/dL 70-110 N GLUBED) GLUCOSE BEDSIDE [id number] 12:08:00 Test Item Value Reference Range Interpretation Comments GLUCOSE BEDSIDE TESTING (test code 215 mg/dL 70-110 H = GLUBED) GLUCOSE BEDSIDE [id number] 08:14:00 Test Item Value Reference Range Interpretation Comments GLUCOSE BEDSIDE TESTING (test code 204 mg/dL 70-110 H = GLUBED) GLUCOSE BEDSIDE [id number] 20:32:00 Test Item Value Reference Range Interpretation Comments GLUCOSE BEDSIDE TESTING (test code 242 mg/dL 70-110 H = GLUBED) GLUCOSE BEDSIDE [id number] 17:18:00 Test Item Value Reference Range Interpretation Comments GLUCOSE BEDSIDE TESTING (test code 236 mg/dL 70-110 H = GLUBED) GLUCOSE BEDSIDE [id number] 12:33:00 Test Item Value Reference Range Interpretation Comments GLUCOSE BEDSIDE TESTING (test code 224 mg/dL 70-110 H = GLUBED) GLUCOSE BEDSIDE [id number] 08:31:00 Test Item Value Reference Range Interpretation Comments GLUCOSE BEDSIDE TESTING (test code 164 mg/dL 70-110 H = GLUBED) CBC W/AUTO [id number] 06:15:00 Test Item Value Reference Range Interpretation [...] NO DIFF/SCN CRITERIA = MDIFF) GLUCOSE BEDSIDE [id number] 21:03:00 Test Item Value Reference Range Interpretation Comments GLUCOSE BEDSIDE TESTING (test code 319 mg/dL 70-110 H = GLUBED) GLUCOSE BEDSIDE [id number] 17:20:00 Test Item Value Reference Range Interpretation Comments GLUCOSE BEDSIDE TESTING (test code 192 mg/dL 70-110 H = GLUBED) GLUCOSE BEDSIDE [id number] 12:30:00 Test Item Value Reference Range Interpretation Comments GLUCOSE BEDSIDE TESTING (test code 286 mg/dL 70-110 H = GLUBED) GLUCOSE BEDSIDE [id number] 08:24:00 Test Item Value Reference Range Interpretation Comments GLUCOSE BEDSIDE TESTING (test code 193 mg/dL 70-110 H = GLUBED) GLUCOSE BEDSIDE [id number] 20:46:00 Test Item Value Reference Range Interpretation Comments GLUCOSE BEDSIDE TESTING (test code 161 mg/dL 70-110 H = GLUBED) GLUCOSE BEDSIDE [id number] 16:40:00 Test Item Value Reference Range Interpretation Comments GLUCOSE BEDSIDE TESTING (test code 302 mg/dL 70-110 H = GLUBED) GLUCOSE BEDSIDE [id number] 12:17:00 Test Item Value Reference Range Interpretation Comments GLUCOSE BEDSIDE TESTING (test code 330 mg/dL 70-110 H = GLUBED) GLUCOSE BEDSIDE [id number] 08:39:00 Test Item Value Reference Range Interpretation Comments GLUCOSE BEDSIDE TESTING (test code 144 mg/dL 70-110 H = GLUBED) BASIC METABOLIC [id number] 06:08:00 Test Item Value Reference Range Interpretation [...] CA) 8.7 MG/DL 8.5-10.1 N CBC W/AUTO [id number] 05:50:00 Test Item Value Reference Range Interpretation [...] NO DIFF/SCN CRITERIA = MDIFF) GLUCOSE BEDSIDE [id number] 20:09:00 Test Item Value Reference Range Interpretation Comments GLUCOSE BEDSIDE TESTING (test code 304 mg/dL 70-110 H = GLUBED) GLUCOSE BEDSIDE [id number] 19:39:00 Test Item Value Reference Range Interpretation Comments GLUCOSE BEDSIDE TESTING (test code 175 mg/dL 70-110 H = GLUBED) Coronavirus 2019 nCoV [id number] 11:34:00 Test Item Value Reference Range Interpretation Comments Coronavirus 2019 nCoV Bedside (test Positive Negative code = [id number]) BASIC METABOLIC [id number] 05:48:00 Test Item Value Reference Range Interpretation [...] CA) 8.8 MG/DL 8.5-10.1 N CBC W/AUTO [id number] 05:34:00 Test Item Value Reference Range Interpretation [...] NO DIFF/SCN CRITERIA = MDIFF) GLUCOSE BEDSIDE [id number] 20:14:00 Test Item Value Reference Range Interpretation Comments GLUCOSE BEDSIDE TESTING (test code 231 mg/dL 70-110 H = GLUBED) GLUCOSE BEDSIDE [id number] 16:38:00 Test Item Value Reference Range Interpretation Comments GLUCOSE BEDSIDE TESTING (test code 225 mg/dL 70-110 H = GLUBED) GLUCOSE BEDSIDE [id number] 12:08:00 Test Item Value Reference Range Interpretation Comments GLUCOSE BEDSIDE TESTING (test code 307 mg/dL 70-110 H = GLUBED) GLUCOSE BEDSIDE [id number] 08:28:00 Test Item Value Reference Range Interpretation Comments GLUCOSE BEDSIDE TESTING (test code 114 mg/dL 70-110 H = GLUBED) BASIC METABOLIC [id number] 06:55:00 Test Item Value Reference Range Interpretation [...] CA) 8.6 MG/DL 8.5-10.1 N CBC W/AUTO [id number] 06:37:00 Test Item Value Reference Range Interpretation [...] NO DIFF/SCN CRITERIA = MDIFF) GLUCOSE BEDSIDE [id number] 20:59:00 Test Item Value Reference Range Interpretation Comments GLUCOSE BEDSIDE TESTING (test code 112 mg/dL 70-110 H = GLUBED) GLUCOSE BEDSIDE [id number] 16:32:00 Test Item Value Reference Range Interpretation Comments GLUCOSE BEDSIDE TESTING (test code 240 mg/dL 70-110 H = GLUBED) GLUCOSE BEDSIDE [id number] 12:49:00 Test Item Value Reference Range Interpretation Comments GLUCOSE BEDSIDE TESTING (test code 266 mg/dL 70-110 H = GLUBED) GLUCOSE BEDSIDE [id number] 08:35:00 Test Item Value Reference Range Interpretation Comments GLUCOSE BEDSIDE TESTING (test code 186 mg/dL 70-110 H = GLUBED) CBC W/AUTO [id number] 06:52:00 Test Item Value Reference Range Interpretation [...] DIFF REQUIRED NO DIFF/SCN CRITERIA SLIDE R EVIEW (test code = MDIFF) CONSISTA NT WITH AUTO DIFFERENTI AL. BASIC METABOLIC [id number] 06:28:00 Test Item Value Reference Range Interpretation [...] code = CA) 8.8 MG/DL 8.5-10.1 N [id number] 06:28:00 Test Item Value Reference Range Interpretation Comments PHOSPHOROUS (test code = PHOS) 2.6 MG/DL 2.5-4.9 N LACTIC DEHYDROGENASE(LDH)2020-06-23 06:28:00 Test Item Value Reference Range Interpretation Comments LACTIC DEHYDROGENASE(LDH) (test 271 Unit/L 84-246 H code = LDH) [id number] 06:28:00 Test Item Value Reference Range Interpretation Comments MAGNESIUM (test code = MAG) 2.1 MG/DL 1.8-2.4 N CBC W/AUTO [id number] 06:15:00 Test Item Value Reference Range Interpretation [...] code = DIFF/SCN CRITERIA MDIFF) GLUCOSE BEDSIDE [id number] 19:43:00 Test Item Value Reference Range Interpretation Comments GLUCOSE BEDSIDE TESTING (test code 405 mg/dL 70-110 H = GLUBED) GLUCOSE BEDSIDE [id number] 16:28:00 Test Item Value Reference Range Interpretation Comments GLUCOSE BEDSIDE TESTING (test code 299 mg/dL 70-110 H = GLUBED) GLUCOSE BEDSIDE [id number] 12:20:00 Test Item Value Reference Range Interpretation Comments GLUCOSE BEDSIDE TESTING (test code 273 mg/dL 70-110 H = GLUBED) GLUCOSE BEDSIDE [id number] 08:12:00 Test Item Value Reference Range Interpretation Comments GLUCOSE BEDSIDE TESTING (test code 118 mg/dL 70-110 H = GLUBED) BASIC METABOLIC [id number] 06:50:00 Test Item Value Reference Range Interpretation [...] code = CA) 9.3 MG/DL 8.5-10.1 N [id number] 06:50:00 Test Item Value Reference Range Interpretation Comments PHOSPHOROUS (test code = PHOS) 2.6 MG/DL 2.5-4.9 N LACTIC DEHYDROGENASE(LDH)2020-06-22 06:50:00 Test Item Value Reference Range Interpretation Comments LACTIC DEHYDROGENASE(LDH) (test 326 Unit/L 84-246 H code = LDH) [id number] 06:50:00 Test Item Value Reference Range Interpretation Comments MAGNESIUM (test code = MAG) 1.7 MG/DL 1.8-2.4 L [id number] 06:47:00 Test Item Value Reference Range Interpretation Comments D-DIMER (test code = DDIMER) 3044 ng/mLFEU 215-500 HH CBC W/AUTO [id number] 06:39:00 Test Item Value Reference Range Interpretation [...] NO DIFF/SCN CRITERIA = MDIFF) GLUCOSE BEDSIDE [id number] 21:52:00 Test Item Value Reference Range Interpretation Comments GLUCOSE BEDSIDE TESTING (test code 195 mg/dL 70-110 H = GLUBED) GLUCOSE BEDSIDE [id number] 16:38:00 Test Item Value Reference Range Interpretation Comments GLUCOSE BEDSIDE TESTING (test code 374 mg/dL 70-110 H = GLUBED) GLUCOSE BEDSIDE [id number] 12:17:00 Test Item Value Reference Range Interpretation Comments GLUCOSE BEDSIDE TESTING (test code 420 mg/dL 70-110 H = GLUBED) GLUCOSE BEDSIDE [id number] 08:22:00 Test Item Value Reference Range Interpretation Comments GLUCOSE BEDSIDE TESTING (test code 238 mg/dL 70-110 H = GLUBED) CBC W/AUTO [id number] 05:54:00 Test Item Value Reference Range Interpretation [...] (test code NO DIFF/SCN CRITERIA = MDIFF) [id number] 05:21:00 Test Item Value Reference Range Interpretation Comments D-DIMER (test code = DDIMER) 4184 ng/mLFEU 215-500 HH BASIC METABOLIC [id number] 05:21:00 Test Item Value Reference Range Interpretation [...] code = CA) 8.5 MG/DL 8.5-10.1 N [id number] 05:21:00 Test Item Value Reference Range Interpretation Comments PHOSPHOROUS (test code = PHOS) 2.9 MG/DL 2.5-4.9 N LACTIC DEHYDROGENASE(LDH)2020-06-21 05:21:00 Test Item Value Reference Range Interpretation Comments LACTIC DEHYDROGENASE(LDH) (test 271 Unit/L 84-246 H code = LDH) [id number] 05:21:00 Test Item Value Reference Range Interpretation Comments MAGNESIUM (test code = MAG) 1.4 MG/DL 1.8-2.4 L CBC W/AUTO [id number] 05:04:00 Test Item Value Reference Range Interpretation [...] code = DIFF/SCN CRITERIA MDIFF) THROMBOPLASTIN TIME [id number] 02:51:00 Test Item Value Reference Range Interpretation Comments THROMBOPLASTIN TIME PARTIAL 160.7 SECONDS 26-35 HH (test code = PTT) GLUCOSE BEDSIDE [id number] 21:12:00 Test Item Value Reference Range Interpretation Comments GLUCOSE BEDSIDE TESTING (test code 297 mg/dL 70-110 H = GLUBED) THROMBOPLASTIN TIME [id number] 20:35:00 Test Item Value Reference Range Interpretation Comments THROMBOPLASTIN TIME PARTIAL 35.2 SECONDS 26-35 H (test code = PTT) GLUCOSE BEDSIDE [id number] 16:25:00 Test Item Value Reference Range Interpretation [...] = LDL/HDL) 0.80 Ratio 1.48-3.22 Avg L [id number] 15:14:00 Test Item Value Reference Range Interpretation [...] yby method. Completed by Nursing: NO- CTA [id number] 14:47:00 [facility] 1950 Sex: F Name: IRINA FONG [facility] : 1950 Age/S: 70 / F [address] Unit #: [id number] Loc: [place] [address] Phys: Nito Shipley MD Acct: [id number] Dis Date: Status: REG ER PHONE #: [phone] Exam Date: 06/20/2020 6925 FAX #: Reason: Chest Pain r/o PE EXAMS: CPT: [id number] CTA CHEST 48166 CTA chest, contrast-enhanced (pulmonary embolism protocol }.Reconstructed [...] PAGE 1 Signed Report (CONTINUED) Name: [place]INA [place]land : 1950 Age/S:70 / F [address] Unit #: [id number] Loc: [place] [address] Phys: Nito Shipley MD Acct: [id number] Dis Date: Status: REG ER PHONE #: [phone] Exam Date: 06/20/2020 1426 FAX #: Reason: Chest Pain r/o PE EXAMS: CPT: [id number] CTA CHEST 19046 <Continued> Cardiomegaly with small to moderate pericardial effusion. Bilateral pneumonia. Location: U19 at 1447 Reported and signed by: Ricky Alegre M.D CC: Nito Shipley MD Technologist:Janett Graf, RT(R)(CT)(MRI) CTDI: DLP: Trnscb Date/Time:06/20/2020 (1447) t.[email or web address] Orig Print D/T: S: 06/20/2020 (4814) PAGE 2 Signed ReportCoronavirus 2019 nCoV [id number] 13:48:00 Test Item Value Reference Range Interpretation Comments Coronavirus 2019 nCoV Bedside (test Positive Negative code = [id number]) BASIC METABOLIC [id number] 13:24:00 Test Item Value Reference Range Interpretation [...] Unit/L 26-192 N CK) Completed by Nursing: [id number] 13:24:00 Test Item Value Reference Range Interpretation [...] delmy yby method. Completed by Nursing: NOPROTHROMBIN [id number] 13:03:00 Test Item Value Reference Range Interpretation Comments PT PATIENT (test code = PTP) 15.8 SECONDS 9.3-12.9 H INTERNATIONAL NORMAL RATIO 1.39 INR Unit 0.8-1.2 H (test code = INR) THROMBOPLASTIN TIME [id number] 13:03:00 Test Item Value Reference Range Interpretation Comments THROMBOPLASTIN TIME PARTIAL 18.0 SECONDS 26-35 L (test code = PTT) - XR CHEST 1 [id number] 13:02:00 [facility] 1950 Sex: F Name: IRINA FONG : 1950 Age/S: 70 / F [address] Unit #: [id number] Loc: [place] [address] Phys: Nito Shipley MD Acct: [id number] Dis Date: Status: REG ER PHONE #: [phone] Exam Date: 06/20/2020 1245 FAX #: Reason: chest pain EXAMS: CPT: [id number] XR CHEST 1 V 26816 Fluoro Time: DAP (Gy m2): Air Kerma [...] IRINA FONG : 1950ge/S: 70 / F [address] Unit #: [id number] Loc: [place] [address] Phys: Nito Shipley MD Acct: [id number] Dis Date: Status: REG ER PHONE#: [phone] Exam Date: 06/20/2020 1245 FAX #: Reason: chest pain EXAMS: CPT: [id number] XR CHEST 1 V [id number] Fluoro Time: DAP (Gy m2): Air Kerma (mGy): <Continued> Technologist: Anna Maldonado, RT(R) Trnscb Date/Time: 06/20/2020 (1832) [id number] Orig Print D/T: S: 06/20/2020 (0979) PAGE 2 Signed ReportCBC W/O [id number] 12:58:00 Test Item Value Reference Range Interpretation [...]
--- NOTE | 2021-10-13 09:37 | RAD REPORT ---
EXAM DESCRIPTION: CT - Head Brain Wo Cont - 10/13/2021 9:26 am CLINICAL HISTORY: Syncope COMPARISON: 2018 TECHNIQUE: Computed axial tomography of the head was obtained. IV contrast was not requested. All CT scans are performed using dose optimization technique as appropriate and may include automated exposure control or mA/KV adjustment according to patient size. FINDINGS: An intracranial bleed is not seen . The ventricles are normal in caliber. No extra-axial fluid collection is noted. Vertebral arterial calcifications noted Fluid within the sinuses/ mastoids is not seen. IMPRESSION: No acute intracranial abnormality is seen. If patient's symptoms persist MRI of the bra in would be recommended.
[2021-10-13 10:40] LABS: Absolute Lymphocytes (CBC) 1.8 K/uL (0.7-4.9); Hematocrit 36.9 % (36.0-45.0); Lymphocytes % 26.2 % (15.3-44.8); MPV 8.3 fL (7.6-11.3); RBC Red Blood Cell Count 4.26 M/uL (3.86-4.86)
--- NOTE | 2021-10-13 10:41 | RAD REPORT ---
EXAM DESCRIPTION: USCarotid Artery Bilateral10/13/2021 10:02 am CLINICAL HISTORY: TIA COMPARISON: 2012 FINDINGS: The velocity of the right internal carotid artery equals 77 cm/sec. The right ICA/CCA rati o 0.6 The velocity of the left internal carotid artery equals 105 cm/sec. The left ICA/CCA ratio 1.1 Mild plaque is present within the carotid arteries. The vertebral arteries demonstrate antegrade flow IMPRESSION: Mild plaque within the carotid arteries without evidence of a hemodynamically significan t stenosis NASCET criteria used. Mild 0-49% stenosis Moderate 50-69% stenosis Severe 70-99% stenosis
[2021-10-13 10:44] LABS: Protime INR 1.36
[2021-10-13 11:04] LABS: Potassium 3.7 mmol/L (3.5-5.1); Troponin High Sensitivity 27.6 pg/mL (<58.9)
[2021-10-13 11:13] LABS: Magnesium 1.3 mg/dL (1.8-2.4)
--- NOTE | 2021-10-13 11:16 | RAD REPORT ---
EXAM DESCRIPTION: Elisha Single View10/13/2021 10:35 am CLINICAL HISTORY: Syncope COMPARISON: 2020 FINDINGS: The lungs appear clear of acute infiltrate. The heart is mildly enlarged IMPRESSION: No acute abnormalities displayed
--- NOTE | 2021-10-13 11:17 | ER ---
Nurse's Notes [facility] Name: Linda Menezes Age: 71 yrs Sex: Female : 1950 Arrival Date: 10/13/2021 Time: 09:03 Bed 24 Private MD: Diagnosis: Multiple syncopal episodes Presentation: 10/13 09:08 Chief complaint: Patient states: "This morning when I got up from bed I turned to look vg1 at my cat and I passed out and fell; I got back up to go the rest room and fell again'. Pt states pain Right side of neck; Pt was placed in C collar by EMS. Pt denies hitting head, states LOC 'for a couple of seconds'. Pt is taking Eliquis. BG was 159. Coronavirus screen: Vaccine status: Patient reports receiving the 2nd dose of the covid vaccine. Client denies travel out of the [place] in the last 14 days. Ebola Screen: Patient negative for fever greater than or equal to 101.5 degrees Fahrenheit, and additional compatible Ebola Virus Disease symptoms. Initial Sepsis Screen: Does the patient meet any 2 criteria? No. Patient's initial sepsis screen is negative. Does the patient have a suspected source of infection? No. Patient's initial sepsis screen is negative. Risk Assessment: Do you want to hurt yourself or someone else? Patient reports no desire to harm self or others. Onset of symptoms was October 13, 2021. 09:08 Method Of Arrival: EMS: [facility] vg1 09:08 Acuity: ALHAJI 3 vg1 09:08 Care prior to arrival: Cervical collar in place. IV initiated. 20 GA, in the left vg1 forearm, Glucose check: 159. Triage Assessment: 09:11 General: Appears in no apparent distress. uncomfortable, Behavior is calm, cooperative. vg1 Pain: Denies pain. EENT: No signs and/or symptoms were reported regarding the EENT system. Neuro: Level of Consciousness is awake, alert, obeys commands, Oriented to person, place, time, situation, Reports dizziness, a syncopal episode. Cardiovascular: Patient's skin is warm and dry. Respiratory: Airway is patent Respiratory effort is even, unlabored. GI: No signs and/or symptoms were reported involving the gastrointestinal system. : No signs and/or symptoms were reported regarding the genitourinary system. Derm: Skin is intact, is healthy with good turgor. Musculoskeletal: Circulation, motion, and sensation intact. Historical: - Allergies: : No Known Allergies; vg1 - Home Meds: : Eliquis oral [Active]; Tramadol Oral [Active]; Metformin Oral [Active]; levothyroxine vg1 oral [Active]; ozempic [Active]; amlodipine oral [Active]; Omeprazole Oral [Active]; gabapentin oral [Active]; Melatonin Oral [Active]; carvedilol oral [Active]; losartan-hydrochlorothiazide oral [Active]; Lovastatin Oral [Active]; Diphenhydramine Oral [Active]; Glipizide Oral [Active]; duloxetine oral [Active]; - PMHx: : kidney disease; Type 2 Diabetes Mellitus; Hypertensive disorder; Myocardial infarction; vg1 Atrial fibrillation; - Immunization history:: Client reports receiving the 2nd dose of the Covid vaccine. - Social history:: Smoking status: Patient denies any tobacco usage or history of. Screenin:13 Abuse screen: Denies threats or abuse. Nutritional screening: No deficits noted. vg1 Tuberculosis screening: No symptoms or risk factors identified. Fall Risk Fall in past 12 months (25 points). No secondary diagnosis (0 pts). IV access (20 points). Ambulatory Aid- None/Bed Rest/Nurse Assist (0 pts). Gait- Normal/Bed Rest/Wheelchair (0 pts) Mental Status- Oriented to own ability (0 pts). Total Vargas Fall Scale indicates High Risk Score (45 or more points). Fall prevention measures have been instituted. Side Rails Up X 2 Placed Close to Nursing Station. Assessment: 09:10 Reassessment: SEE TRIAGE. vg1 10:10 Reassessment: Patient appears in no apparent distress at this time. Patient and/or vg1 family updated on plan of care and expected duration. Pain level reassessed. Patient is alert, oriented x 3, equal unlabored respirations, skin warm/dry/pink. Patient states feeling better. 11:10 Reassessment: Patient appears in no apparent distress at this time. No changes from vg1 previously documented assessment. Patient and/or family updated on plan of care and expected duration. Pain level reassessed. Patient is alert, oriented x 3, equal unlabored respirations, skin warm/dry/pink. 12:10 Reassessment: Patient appears in no apparent distress at this time. No changes from vg1 previously documented assessment. Patient and/or family updated on plan of care and expected duration. Pain level reassessed. Patient is alert, oriented x 3, equal unlabored respirations, skin warm/dry/pink. 19:49 Reassessment: Patient appears in no apparent distress at this time. Patient and/or jb4 family updated on plan of care and expected duration. Pain level reassessed. Patient is alert, oriented x 3, equal unlabored respirations, skin warm/dry/pink. 20:05 Reassessment: report called to SENG Navas. jb4 Vital Signs: 09:08 BP 101 / 65; Pulse 77; Resp 15; Temp 98.5; Pulse Ox 98% on R/A; Weight 68.04 kg; Height vg1 5 ft. 4 in. (162.56 cm); Pain 0/10; 10:30 BP 105 / 60; Pulse 73; Resp 16; Pulse Ox 99% ; vg1 11:30 BP 97 / 80; Pulse 72; Resp 15; Pulse Ox 98% on R/A; vg1 12:30 BP 107 / 60; Pulse 71; Resp 15; Pulse Ox 97% on R/A; vg1 19:49 BP 106 / 60; Pulse 83; Resp 16; Pulse Ox 98% on R/A; jb4 09:08 Body Mass Index 25.75 (68.04 kg, 162.56 cm) vg1 ED Course: 09:03 Patient arrived in ED. bd 09:03 Carmina Castellanos MD is Attending Physician. sp3 09:08 Patti Thomas, RN is Primary Nurse. vg1 09:11 Triage completed. vg1 09:13 Patient has correct armband on for positive identification. Placed in gown. Bed in low vg1 position. Call light in reach. Side rails up X2. threat monitoring analyst on. Pulse ox on. NIBP on. 09:13 Arm band placed on. vg1 09:28 CT Head Brain wo Cont In Process Unspecified. EDMS 10:00 Inserted saline lock: 22 gauge in right antecubital area, using aseptic technique. vg1 ,using aseptic technique. Completed by Gabriela stoker erector. 10:04 Carotid Artery Bilateral US In Process Unspecified. EDMS 10:37 XRAY Chest (1 view) In Process Unspecified. EDMS 10:37 Lab(s) recollected, by me, sent to lab. vg1 11:15 Angela Klein MD is Hospitalizing Provider. sp3 12:19 COVID swab sent to lab. vg1 16:28 No provider procedures requiring assistance completed. vg1 16:29 Patient admitted, IV remains in place. vg1 19:04 Report given to Jt ELLSWORTH. vg1 Administered Medications: No medications were administered Outcome: 11:16 Decision to Hospitalize by Provider. sp3 12:00 Admitted to ER Hold. Please see [facility] for further documentation. vg1 12:00 Condition: good 12:00 Instructed on the need for admit. 20:16 Admitted to Tele accompanied by tech, via wheelchair, room 401, with chart, Report jb4 called to SENG Navas 20:16 Condition: stable 20:16 Discharge instructions given to patient, Instructed on the need for admit, Demonstrated understanding of instructions. 20:17 Patient left the ED. jb4 Signatures: Dispatcher [employer] EDMS Sulma Feilds James, RN RN jb4 Patti Thomas RN RN vg1 Carmina Castellanos MD MD sp3
--- NOTE | 2021-10-13 11:17 | EDPHYS ---
Physician Documentation [facility] Name: Linda Menezes Age: 71 yrs Sex: Female : 1950 Arrival Date: 10/13/2021 Time: 09:03 Bed 24 Private MD: ED Physician Carmina Castellanos HPI: 10/13 09:30 This 71 yrs old Female presents to ER via EMS with complaints of Syncope. sp3 09:30 71-year-old female with a history of type 2 diabetes, hypertension, renal insufficiency sp3 who is also on Eliquis, presents to the ED for multiple syncope episodes that occurred after waking up this morning. Patient states that anytime she turns her head to the right she becomes lightheaded and passes out. She has had 2 ground-level falls this morning but denies hitting her head or having any significant trauma. She also denies neck pain, chest pain, back pain, shortness of breath, nausea, vomiting, diarrhea, numbness or tingling, memory loss, or any other symptoms on ROS at this time. States that she has not had this in the past. Really she is asymptomatic and as long she does not turn her head to the right does not seem to feel the lightheadedness. MS, she has had normal vital signs and normal neurological exam and has been in sinus rhythm with multiple PVCs during transportation.. Historical: - Allergies: 09:11 No Known Allergies; vg1 - Home Meds: 09:26 Eliquis oral [Active]; Tramadol Oral [Active]; Metformin Oral [Active]; levothyroxine vg1 oral [Active]; ozempic [Active]; amlodipine oral [Active]; Omeprazole Oral [Active]; gabapentin oral [Active]; Melatonin Oral [Active]; carvedilol oral [Active]; losartan-hydrochlorothiazide oral [Active]; Lovastatin Oral [Active]; Diphenhydramine Oral [Active]; Glipizide Oral [Active]; duloxetine oral [Active]; - PMHx: 09:11 kidney disease; Type 2 Diabetes Mellitus; Hypertensive disorder; Myocardial infarction; vg1 Atrial fibrillation; - Immunization history:: Client reports receiving the 2nd dose of the Covid vaccine. - Social history:: Smoking status: Patient denies any tobacco usage or history of. ROS: 09:33 Constitutional: Negative for fever, chills, and weight loss, Eyes: Negative for injury, sp3 pain, redness, and discharge, ENT: Negative for injury, pain, and discharge, Neck: Negative for injury, pain, and swelling, Respiratory: Negative for shortness of breath, cough, wheezing, and pleuritic chest pain, Abdomen/GI: Negative for abdominal pain, nausea, vomiting, diarrhea, and constipation, Back: Negative for injury and pain, MS/Extremity: Negative for injury and deformity, Skin: Negative for injury, rash, and discoloration, Psych: Negative for depression, anxiety, suicide ideation, homicidal ideation, and hallucinations, Allergy/Immunology: Negative for hives, rash, and allergies, Endocrine: Negative for neck swelling, polydipsia, polyuria, polyphagia, and marked weight changes, Hematologic/Lymphatic: Negative for swollen nodes, abnormal bleeding, and unusual bruising. 09:33 All other systems are negative. Exam: 09:34 Constitutional: This is a well developed, well nourished patient who is awake, alert, sp3 and in no acute distress. Head/Face: Normocephalic, atraumatic. Eyes: Pupils equal round and reactive to light, extra-ocular motions intact. Lids and lashes normal. Conjunctiva and sclera are non-icteric and not injected. Cornea within normal limits. Periorbital areas with no swelling, redness, or edema. ENT: Nares patent. No nasal discharge, no septal abnormalities noted. External auditory canals are clear. Oropharynx with no redness, swelling, or masses, exudates, or evidence of obstruction, uvula midline. Mucous membranes moist. Neck: Trachea midline, no thyromegaly or masses palpated, and no cervical lymphadenopathy. Supple, full range of motion without nuchal rigidity, or vertebral point tenderness. No Meningismus. Chest/axilla: Normal chest wall appearance and motion. Nontender with no deformity. No lesions are appreciated. Cardiovascular: Regular rate and rhythm with a normal S1 and S2. No gallops, murmurs, or rubs. Normal PMI, no JVD. No pulse deficits. Respiratory: Lungs have equal breath sounds bilaterally, clear to auscultation and percussion. No rales, rhonchi or wheezes noted. No increased work of breathing, no retractions or nasal flaring. Abdomen/GI: Soft, non-tender, with normal bowel sounds. No distension or tympany. No guarding or rebound. No evidence of tenderness throughout. Back: No spinal tenderness. No costovertebral tenderness. Full range of motion. Skin: Warm, dry with normal turgor. Normal color with no rashes, no lesions, and no evidence of cellulitis. MS/ Extremity: Pulses equal, no cyanosis. Neurovascular intact. Full, normal range of motion. Neuro: Awake and alert, GCS 15, oriented to person, place, time, and situation. Cranial nerves II-XII grossly intact. Motor strength 5/5 in all extremities. Sensory grossly intact. Cerebellar exam normal. Normal gait. Psych: Awake, alert, with orientation to person, place and time. Behavior, mood, and affect are within normal limits. 09:34 ECG was reviewed by the Attending Physician. She demonstrates normal sinus rhythm at 81 bpm with normal intervals, normal axis, and multiple PVCs noted on EKG. Nonspecific diffuse ST/T changes without evidence of ischemia. Vital Signs: 09:08 BP 101 / 65; Pulse 77; Resp 15; Temp 98.5; Pulse Ox 98% on R/A; Weight 68.04 kg; Height vg1 5 ft. 4 in. (162.56 cm); Pain 0/10; 10:30 BP 105 / 60; Pulse 73; Resp 16; Pulse Ox 99% ; vg1 11:30 BP 97 / 80; Pulse 72; Resp 15; Pulse Ox 98% on R/A; vg1 12:30 BP 107 / 60; Pulse 71; Resp 15; Pulse Ox 97% on R/A; vg1 19:49 BP 106 / 60; Pulse 83; Resp 16; Pulse Ox 98% on R/A; jb4 09:08 Body Mass Index 25.75 (68.04 kg, 162.56 cm) vg1 MDM: 09:03 Patient medically screened. sp3 09:35 Data reviewed: vital signs, nurses notes. ED course: 71-year-old female with multiple sp3 episodes of syncope will require admission and further work-up. CT scan of the head, carotid ultrasounds, and laboratory values have been ordered and pending. Will admit patient to medicine and proceed from there.. 10/13 09:04 Order name: Basic Metabolic Panel; Complete Time: 11:15 sp3 10/13 09:04 Order name: CBC with Diff; Complete Time: 10:48 sp3 10/13 09:04 Order name: Magnesium; Complete Time: 11:15 sp3 10/13 09:04 Order name: NT PRO-BNP; Complete Time: 11:15 sp3 10/13 09:04 Order name: PT-INR; Complete Time: 10:48 sp3 10/13 09:04 Order name: Troponin HS; Complete Time: 11:15 sp3 10/13 09:04 Order name: XRAY Chest (1 view) sp3 10/13 09:04 Order name: CT Head Brain wo Cont; Complete Time: 10:48 sp3 10/13 12:05 Order name: SARS-COV-2 RT PCR (Document "Date of Onset" if Symptomatic) 10/13 12:53 Order name: CBC with Automated Diff EDMS 10/13 12:53 Order name: CBC with Automated Diff EDMS 10/13 12:53 Order name: Comprehensive Metabolic Panel EDMS 10/13 12:53 Order name: Comprehensive Metabolic Panel EDMS 10/13 15:16 Order name: Glucose, Ancillary Testing EDMS 10/13 09:04 Order name: EKG; Complete Time: 09:05 sp3 10/13 09:04 Order name: Cardiac monitoring; Complete Time: 09:23 sp3 10/13 09:04 Order name: EKG - Nurse/Tech; Complete Time: 09:23 sp3 10/13 09:04 Order name: IV Saline Lock; Complete Time: 10:14 sp3 10/13 09:04 Order name: Labs collected and sent; Complete Time: 10:14 sp3 10/13 09:04 Order name: O2 Per Protocol; Complete Time: 09:23 sp3 10/13 09:04 Order name: O2 Sat Monitoring; Complete Time: 09:23 sp3 10/13 09:04 Order name: Carotid Artery Bilateral US; Complete Time: 10:48 sp3 10/13 10:22 Order name: Labs - recollect needed: recollect green and blue top; Complete Time: 10:37 bd 10/13 10:27 Order name: Labs collected and sent: recollect lavender top; Complete Time: 10:37 bd 10/13 12:53 Order name: CONS Physician Consult EDMS 10/13 12:53 Order name: Heart Healthy EDMS Administered Medications: No medications were administered Disposition Summary: 10/13/21 11:16 Hospitalization Ordered Hospitalization Status: Observation sp3 Provider: Angela Klein sp3 Condition: Stable sp3 Problem: new sp3 Symptoms: have worsened sp3 Bed/Room Type: Standard sp3 Location: Telemetry/MedSurg (observation)(10/13/21 18:38) bd Room Assignment: 401(10/13/21 18:38) bd Diagnosis - Multiple syncopal episodes sp3 Forms: - Medication Reconciliation Form sp3 - SBAR form sp3 Signatures: Dispatcher [employer] EDMS Sulma Fields Irene, RN RN iw Patti Thomas RN RN vg1 Carmina Castellanos MD MD sp3 Corrections: (The following items were deleted from the chart) 13:12 11:16 Telemetry/MedSurg (observation) sp3 iw 13:12 11:16 sp3 iw 18:38 13:12 [facility] ER HOLD iw bd 18:38 13:12 ERHOLD- iw bd
[2021-10-13] MEDS ORDERED: ACETAMINOPHEN 500 MG TAB PO PRN (12:48)
[2021-10-13] MEDS ORDERED: MORPHINE 2 MG/ML SYR IV PRN (12:48)
[2021-10-13] MEDS ORDERED: ONDANSETRON 4 MG/2 ML VIAL IV PRN (12:48)
[2021-10-13] MEDS ORDERED: NA CHLORIDE 0.9% 1,000 ML ONE (16:05)
[2021-10-13] MEDS: NA CHLORIDE 0.9% 1,000 ML IV SCH ×2 (16:32→21:14)
[2021-10-13] MEDS ORDERED: Magnesium Sulfate 2gm IVPB 2 G/50 ML BAG IV ONE (20:38)
[2021-10-13 21:44] VITALS: BMI 25.2
[2021-10-13] MEDS ORDERED: TRAMADOL HCL 50 MG TAB PO PRN (23:46)
[2021-10-14 04:27] LABS: Absolute Lymphocytes (CBC) 1.9 K/uL (0.7-4.9); Hematocrit 34.5 % (36.0-45.0); Lymphocytes % 31.5 % (15.3-44.8); MPV 8.3 fL (7.6-11.3); RBC Red Blood Cell Count 4.02 M/uL (3.86-4.86)
[2021-10-14 04:40] LABS: Bilirubin Total 0.8 mg/dL (0.2-1.0); Potassium 3.6 mmol/L (3.5-5.1); Protein, Total 5.6 g/dL (6.4-8.2)
[2021-10-14 04:46] LABS: Magnesium 2.1 mg/dL (1.8-2.4)
[2021-10-14 04:48] VITALS: TEMP 99.1
[2021-10-14] MEDS ORDERED: LEVOTHYROXINE SOD 0.112 MG TAB PO SCH (06:00)
[2021-10-14] MEDS ORDERED: LEVOTHYROXINE SOD 0.025 MG TAB PO SCH ×2 (06:00→06:30)
[2021-10-14] MEDS: NA CHLORIDE 0.9% 1,000 ML IV SCH (06:43)
--- NOTE | 2021-10-14 07:13 | EKG ---
Test Date: 2021-10-13 Test Time: 09:01:16 Lap Cutter: ALP MEASUREMENT RESULTS: Intervals: Rate: 81 DE: 170 QRSD: 96 QT: 366 QTc: 425 Pandora: P: 41 DE: 170 QRS: 32 T: 50 INTERPRETIVE STATEMENTS: Sinus rhythm with occasional premature ventricular complexes Septal infarct, age undetermined Abnormal ECG Compared to ECG 05/04/2021 08:04:49 Ventricular premature complex(es) now present Myocardial infarct finding still present Electronically Signed On 10-14-21 07:09:46 CDT by Jonny Lopez
[2021-10-14] MEDS ORDERED: METFORMIN HCL 850 MG TAB PO SCH (08:00)
[2021-10-14] MEDS ORDERED: glipiZIDE 5 MG TAB PO SCH (08:00)
[2021-10-14] MEDS ORDERED: carvediloL 6.25 MG TAB PO SCH (09:00)
[2021-10-14] MEDS ORDERED: DULOXETINE 30 MG CAP PO SCH (09:00)
[2021-10-14] MEDS ORDERED: APIXABAN 5 MG TABLET PO SCH (09:00)
[2021-10-14] MEDS ORDERED: AMLODIPINE 5 MG TAB PO SCH (09:00)
[2021-10-14] MEDS ORDERED: GABAPENTIN 100 MG CAP PO SCH (09:00)
[2021-10-14 09:07] VITALS: BP 138/70
[2021-10-14 09:49] VITALS: O2SAT 99
--- NOTE | 2021-10-14 12:03 | P.HP ---
Certification for Inpatient Patient admitted to: Observation With expected LOS: <2 Midnights Patient will require the following post-hospital care: None Practitioner: I am a practitioner with admitting privileges, knowledge of patient current condition, hospital course, and medical plan of care. Services: Services provided to patient in accordance with Admission requirements found in Title 42 Section 412.3 of the Code of Federal Regulations Patient History Date of Service: 10/14/21 Reason for admission: PVCs with syncope History of Present Illness: Pt is a 71-year-old female came to the hospital with near syncope. Patient has been having PVCs. Decision was made to admit the patient to the hospital for further evaluation. Patient does not have any significant cardiac history. She states she has been having diarrhea since she started a new diabetic medication Ozempic. We will go ahead and stop this. Since stopping it she has had no nausea or vomiting. Still some diarrhea. Magnesium is low. We will correct her electrolytes and hopefully her symptoms are improved. Continue with IV hydration as well. Echo & carotid Doppler pending. Allergies No Known Drug Allergies Allergy (Verified 10/13/21 22:36) Unknown Home Medications: Diphenox/Atropine [Lomotil*] 1 tab PO QID PRN #30 tab 07/28/20 Lovastatin [Altoprev] 1 tab PO DAILY #30 07/28/20 Metformin HCl [Glucophage*] 1 tab PO BIDWM #60 tab 07/28/20 Tramadol HCl [Ultram] 1 tab PO Q6H PRN #30 07/28/20 carvediloL [Carvedilol] 6.25 mg PO BID 30 Days #60 tablet 07/28/20 glipiZIDE [Glucotrol*] 1 tab PO BID #60 tab 07/28/20 Apixaban [Eliquis] 5 mg PO BID #60 tablet 04/16/21 Amlodipine Besylate 5 mg PO DAILY 10/13/21 Duloxetine HCl 30 mg PO BID 10/13/21 Gabapentin 100 mg pe PO BID 10/13/21 Levothyroxine [Synthroid*] 137 mcg PO [id number] 10/13/21 Losartan/Hydrochlorothiazide [Losartan-Hctz 100-25 mg Tab] 1 tab PO DAILY 10/13/21 Melatonin [Melatonin*] 5 mg PO BEDTIME 10/13/21 Omeprazole [Prilosec] 40 mg PO DAILY 10/13/21 Magnesium Chloride [Slow-Mag] 64 mg PO DAILY #30 tab 10/14/21 - Past Medical/Surgical History Has patient received pneumonia vaccine in the past: Yes Diabetic: Yes -: Diabetes mellitus type 2, non insulin dependent -: Hypertension -: Hypothyroidism -: Gout -: GERD -: Restless leg syndrome -: Neuropathy -: RESTLESS LEGS SYNDROME -: bronchitis (november 20, 2014) -: right eye lid weakness -: Hysterectomy, 1977 -: intussusception of intestines -: compression disc fracture -: Carpal tunnel Sx, 1983 -: R. elbow Sx, 1999 -: [place] CATARACT SX 2014 -: colonoscopy date unknown, pt advised -: cholecystectomy Psychosocial/ Personal History: The patient is a . She has 2 children. - Family History Father Medical History: Hypertension, Other (see notes) Notes: Parkinson's Mother Medical History: Hypertension, Diabetes, Stroke, Cancer Notes: breast - Social History Smoking Status: Never smoker Alcohol use: No CD- Drugs: No Caffeine use: Yes Place of Residence: Home Review of Systems 10-point ROS is otherwise unremarkable Physical Examination - Vital Signs Temperature: 99.1 F Blood Pressure: 138/70 Pulse: 70 Respirations: 18 Pulse Ox (%): 96 - Physical Exam General: Alert, In no apparent distress, Oriented x3 HEENT: Atraumatic, PERRLA, Mucous membr. moist/pink, EOMI, Sclerae nonicteric Neck: Supple, 2+ carotid pulse no bruit, No LAD, Without JVD or thyroid abnormality Respiratory: Clear to auscultation bilaterally, Normal air movement Cardiovascular: Regular rate/rhythm, Normal S1 S2 Gastrointestinal: Normal bowel sounds, Soft and benign, Non-distended, No tenderness Musculoskeletal: No clubbing, No swelling, No tenderness Integumentary: No rashes Neurological: Normal gait, Normal speech, Normal strength at 5/5 x4 extr, Normal tone, Normal affect Lymphatics: No axilla or inguinal lymphadenopathy Assessment & Plan - Problems (Diagnosis) (1) Syncope Current Visit: Yes Status: Acute (2) CHF (congestive heart failure) Current Visit: No Status: Acute Qualifiers: Heart failure type: combined systolic and diastolic Heart failure chronicity: acute Qualified Code(s): I50.41 - 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) heart failure (3) Diabetes mellitus Onset Date: 12/10/14 Current Visit: No Status: Chronic Qualifiers: Diabetes mellitus type: 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 IV fluids 2. Magnesium supplementation 3. DC Ozempic 4. Echocardiogram and carotid Doppler 5. GI DVT prophylaxis Discharge Plan: Home Plan to discharge in: 24 Hours - Advance Directives Does patient have a Living Will: Yes Does patient have a Durable POA for Healthcare: Yes Critical Care: No Time Spent Managing PTS Care (In Minutes): 45
--- NOTE | 2021-10-14 12:29 | P.DS ---
Discharge Date: 10/14/21 Disposition: ROUTINE DISCHARGE Discharge Condition: GOOD Reason for Admission: PVCs with syncope - Problems (1) Syncope Current Visit: Yes Status: Acute (2) CHF (congestive heart failure) Current Visit: No Status: Acute Qualifiers: Heart failure type: combined systolic and diastolic Heart failure chronicity: acute Qualified Code(s): I50.41 - 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) heart failure (3) Diabetes mellitus Onset Date: 12/10/14 Current Visit: No Status: Chronic Qualifiers: Diabetes mellitus type: type 2 Diabetes mellitus intermediate insulin use: without intermediate use Diabetes mellitus complication status: without complication Qualified Code(s): E11.9 - Type 2 diabetes mellitus without complications (4) Hyperlipidemia Current Visit: No Status: Chronic Qualifiers: Hyperlipidemia type: unspecified Qualified Code(s): E78.5 - Hyperlipidemia, unspecified (5) Hypertension Onset Date: 06/12/18 Current Visit: No Status: Chronic Qualifiers: Hypertension type: essential hypertension Qualified Code(s): I10 - Essential (primary) hypertension Brief History of Present Illness: Pt is a 71-year-old female came to the hospital with near syncope. Patient has been having PVCs. Decision was made to admit the patient to the hospital for further evaluation. Patient does not have any significant cardiac history. She states she has been having diarrhea since she started a new diabetic medication Ozempic. We will go ahead and stop this. Since stopping it she has had no n ausea or vomiting. Still some diarrhea. Magnesium is low. We will correct her electrolytes and hopefully her symptoms are improved. Continue with IV hydration as well. Echo & carotid Doppler pending. Hospital Course: Patient's work-up was unremarkable. Patient is clinically feeling well. At this time, patient is stable for discharge home. Vital Signs/Physical Exam: Temp Pulse Resp BP Pulse Ox 99.1 F 70 18 138/70 96 10/14/21 12:26 10/14/21 12:26 10/14/21 12:26 10/14/21 12:26 10/14/21 12:26 General: Alert, In no apparent distress, Oriented x3 Laboratory Data at Discharge: WBC 5.9 K/uL (4.3-10.9) 10/14/21 04:03 Hgb 11.3 g/dL (12.0-15.0) L 10/14/21 04:03 Hct 34.5 % (36.0-45.0) L 10/14/21 04:03 Plt Count 231 K/uL (152-406) 10/14/21 04:03 PT 15.1 SECONDS (9.5-12.5) H 10/13/21 10:33 INR 1.36 10/13/21 10:33 Sodium 137 mmol/L (136-145) 10/14/21 04:03 Potassium 3.6 mmol/L (3.5-5.1) 10/14/21 04:03 BUN 33 mg/dL (7-18) H 10/14/21 04:03 Creatinine 1.20 mg/dL (0.55-1.3) 10/14/21 04:03 Glucose 208 mg/dL (74-106) H 10/14/21 04:03 Magnesium 2.1 mg/dL (1.8-2.4) D 10/14/21 04:03 Total Bilirubin 0.8 mg/dL (0.2-1.0) 10/14/21 04:03 AST 7 U/L (15-37) L 10/14/21 04:03 ALT 11 U/L (12-78) L 10/14/21 04:03 Alkaline Phosphatase 41 U/L (45-117) L 10/14/21 04:03 Home Medications: Diphenox/Atropine [Lomotil*] 1 tab PO QID PRN #30 tab 07/28/20 Lovastatin [Altoprev] 1 tab PO DAILY #30 07/28/20 Metformin HCl [Glucophage*] 1 tab PO BIDWM #60 tab 07/28/20 Tramadol HCl [Ultram] 1 tab PO Q6H PRN #30 07/28/20 carvediloL [Carvedilol] 6.25 mg PO BID 30 Days #60 tablet 07/28/20 glipiZIDE [Glucotrol*] 1 tab PO BID #60 tab 07/28/20 Apixaban [Eliquis] 5 mg PO BID #60 tablet 04/16/21 Amlodipine Besylate 5 mg PO DAILY 10/13/21 Duloxetine HCl 30 mg PO BID 10/13/21 Gabapentin 100 mg pe PO BID 10/13/21 Levothyroxine [Synthroid*] 137 mcg PO [id number] 10/13/21 Losartan/Hydrochlorothiazide [Losartan-Hctz 100-25 mg Tab] 1 tab PO DAILY 10/13/21 Melatonin [Melatonin*] 5 mg PO BEDTIME 10/13/21 Omeprazole [Prilosec] 40 mg PO DAILY 10/13/21 Magnesium Chloride [Slow-Mag] 64 mg PO DAILY #30 tab 10/14/21 New Medications: Magnesium Chloride [Slow-Mag] 64 mg PO DAILY #30 tab Physician Discharge Instructions: -DC IV and DC home -Follow-up with PCP in 1 to 2 weeks -Follow-up with Cardiology in 1 to 2 weeks -Please call Dr. Klein at [phone] if any questions regarding hospital stay -Please call nursing station at [phone] if any nursing or medication questions -Return to the emergency room if symptoms worsen Diet: AHA Activity: Fall precautions Followup: OOTOOT [Primary Care Provider] - Time spent managing pt's care (in minutes): 35
--- NOTE | 2021-10-14 14:24 | ECHO ---
HEIGHT: 5 ft 3 in WEIGHT: 142 lb 9.6 oz DATE OF STUDY: 10/14/[address]: Angela Klein MD 2-DIMENSIONAL: YES M.MODE: YES DOPPLER: YES COLOR FLOW: YES TDS: NO PORTABLE: NO DEFINITY: NO BUBBLE STUDY: NO DIAGNOSIS: PREMATURE VENTRICULAR COMPLEXES, SYNCOPE CARDIAC HISTORY: CATHERIZATION: NO SURGERY: NO PROSTHETIC VALVE: NO PACEMAKER: NO MEASUREMENTS (cm) DIASTOLIC (NORMALS) SYSTOLIC (NORMALS) IVSd 1.0 (0.6-1.2) LA Diam 3.1 (1.9-4.0) LVEF 62% LVIDd 4.7 (3.5-5.7) LVIDs 3.1 (2.0-3.5) %FS 33% LVPWd 1.2 (0.6-1.2) Ao Diam 2.8 (2.0-3.7) 2 DIMENSIONAL ASSESSMENT: RIGHT ATRIUM: NORMAL LEFT ATRIUM: NORMAL RIGHT VENTRICLE: NORMAL LEFT VENTRICLE: NORMAL TRICUSPID VALVE: NORMAL MITRAL VALVE: NORMAL PULMONIC VALVE: NORMAL AORTIC VALVE: NORMAL PERICARDIAL EFFUSION: NONE AORTIC ROOT: NORMAL LEFT VENTRICULAR WALL MOTION: ANTEROAPICAL AKINESIS. DOPPLER/COLOR FLOW: NORMAL COMMENTS: ANTEROAPICAL AKINESIS. LEFT VENTRICULAR EJECTION FRACTION 62%. NORMAL LEFT VENTRICULAR SIZE. TECHNOLOGIST: America GONZALEZ
[2021-10-14] MEDS ORDERED: MELATONIN 5 MG TABLET PO SCH (21:00)
--- NOTE | 2021-10-15 15:20 | CON ---
Date of Consultation: 10/14/2021 Reason For Consultation: Syncope. History Of Present Illness: Ms. Menezes is a 71-year-old woman. Has a history of diabetes, hype rtension, coronary artery disease, paroxysmal atrial fibrillation in 2020. An echocardiogram showed anteroseptal hypokinesis with a possible left ventricular ejection fraction. I saw a left ventricula r thrombus. Catheterization, however, showed normal coronaries, ejection fraction of 30%. She came in with a syncopal episode, but has had significant diarrhea and nausea after she was receiving some new injection medication for diabetes, she could not recall the name of them. By the time I saw her, she has already had a carotid that was negative. Her EKG showed PVCs with old septal infarction. C hest x-ray was negative. She had a magnesium of 1.3, which was supplemented to 2.1. Creatinine was 1.57 and that went down to 1.2 with hydration. Her BNP was 1730. Echocardiogram is pending. Denied any chest pain. Past Medical History: As stated above. Allergies: NONE. Review of Systems: Negative. Social History: Negative. Family History: Negative. Medications: At home include Norvasc, Eliquis, Coreg, Neurontin, glipizide, Synthroid, and metformin . Physical Examination: Vital Signs: Stable, afebrile. HEENT: Negative. Neck: Supple with no bruit. Chest: Clear to auscultation and percussion. Cardiac: Revealed a regular rhythm with no murmurs, gallops, or rubs. Abdomen: Benign. Extremities: Revealed no clubbing, cyanosis, or edema. Diagnostic Data: As stated earlier. Impression And Plan: 1.Syncope secondary to dehydration from diarrhea, probably reaction to one of her diabetic medicine. She has had a negative carotid Doppler. EKG showed PVCs. I think she needs to be hydrated, stop h er new diabetic medicine. Discuss the case further with Dr. Castellanos as an outpatient. She has an echo cardiogram pending. Her carotid is negative. I will make an arrangement for an outpatient and monit or down the road. Continue her other regimen including Norvasc, Eliquis, Coreg, Neurontin, glipizide , Synthroid, and metformin for now. 2.Low magnesium, which is supplemented. 3.Elevated creatinine that is improved with hydration. 4.PVCs, nonspecific. 5.Normal coronaries with chronic systolic congestive heart failure and a possible left ventricular a pical thrombus with an ejection fraction of 30%. She needs to continue Eliquis in that regard. Her diabetes, hypertension, and coronary artery disease are stable. Atrial fibrillation is well controll ed on Coreg and Eliquis. ORESTES/MELISSA Voice ID: [id number] Report ID: [id number]
== END 2021-10-14 15:56 | disposition home or self-care (01) ==
LOC: ER 08:58 → ERHOLD 12:49 → 4TH 20:04
PROVIDERS: ADMIT Hospitalist; ATTEND Hospitalist
DX: R55 Syncope and collapse (principal); I49.3 Ventricular premature depolarization; E11.9 Type 2 diabetes mellitus without complications; E78.5 Hyperlipidemia, unspecified; R19.7 Diarrhea, unspecified; E86.0 Dehydration; I48.0 Paroxysmal atrial fibrillation; I11.0 Hypertensive heart disease with heart failure; I50.43 Acute on chronic combined systolic (congestive) and diastolic (congestive) heart failure; Z79.01 Long term (current) use of anticoagulants; E03.9 Hypothyroidism, unspecified; Z20.822 Contact with and (suspected) exposure to COVID-19
CPT/HCPCS: 36415; 70450; 71045; 80048; 80053; 82947; 83735; 83880; 84484; 85025; 85610; 93005; 93306; 93880; 99285; G0378; J3475; J7030; U0003

== ENCOUNTER 2022-02-03 16:57 | Observation (INO) | payer OTHER ==
[2022-02-03 18:31] LABS: Magnesium 1.5 mg/dL (1.8-2.4); Potassium 4.7 mmol/L (3.5-5.1); Troponin High Sensitivity 16.4 pg/mL (<58.9)
[2022-02-03 18:38] LABS: Absolute Lymphocytes (CBC) 2.3 K/uL (0.7-4.9); Hematocrit 34.3 % (36.0-45.0); Lymphocytes % 29.4 % (15.3-44.8); MCV 89.2 fL (80-100); MPV 9.3 fL (7.6-11.3); RBC Red Blood Cell Count 3.84 M/uL (3.86-4.86)
[2022-02-03] MEDS ORDERED: Magnesium Sulfate 2gm IVPB 2 G/50 ML BAG IV ONE (18:58)
--- NOTE | 2022-02-03 19:00 | RAD REPORT ---
EXAM DESCRIPTION: RAD - Chest Single View - 02/03/2022 6:23 pm CLINICAL HISTORY: CHEST PAIN Chest pain. COMPARISON: Chest Single View dated 10/13/2021; Chest Single View dated 04/15/2021; Chest Single View d ated 07/31/2020; Chest Single View dated 07/24/2020 FINDINGS: Portable technique limits examination quality. The lungs are grossly clear. The heart is mildly enlarged in size. No displaced fractures. IMPRESSION: No acute intrathoracic process suspected.
[2022-02-03] MEDS ORDERED: ONDANSETRON 4 MG/2 ML VIAL ONE (19:02)
[2022-02-03] MEDS ORDERED: MORPHINE 4 MG/ML SYR ONE (19:02)
[2022-02-03] MEDS ORDERED: ASPIRIN 81 MG CHEWABLE TABLET ONE (19:02)
--- NOTE | 2022-02-03 19:03 | ER ---
Nurse's Notes [facility] Name: Linda Menezes Age: 71 yrs Sex: Female : 1950 Arrival Date: 02/03/2022 Time: 16:58 Bed 27 Private MD: Capo Castellanos Diagnosis: Chest pain, unspecified Presentation: 02/03 17:10 Chief complaint: Patient states: having bad chest pains on left side under breast and iw into her back, started a week ago, denies injury , denies cough , +SOB and pain when taking a deep breath, feels like sharp pain. Coronavirus screen: At this time, the client does not indicate any symptoms associated with coronavirus-19. Ebola Screen: Patient negative for fever greater than or equal to 101.5 degrees Fahrenheit, and additional compatible Ebola Virus Disease symptoms Patient denies exposure to infectious person. Patient denies travel to an Ebola-affected area in the 21 days before illness onset. No symptoms or risks identified at this time. Initial Sepsis Screen: Does the patient meet any 2 criteria? No. Patient's initial sepsis screen is negative. Does the patient have a suspected source of infection? No. Patient's initial sepsis screen is negative. Risk Assessment: Do you want to hurt yourself or someone else? Patient reports no desire to harm self or others. Onset of symptoms was January 27, 2022. 17:10 Method Of Arrival: Ambulatory 17:10 Acuity: ALHAJI 3 iw Historical: - Allergies: 17:12 No Known Allergies; iw - PMHx: 17:12 Atrial fibrillation; Myocardial infarction; Type 2 Diabetes Mellitus; kidney disease; iw Hypertensive disorder; - Immunization history:: Client reports receiving the 2nd dose of the Covid vaccine. - Social history:: Smoking status: Patient denies any tobacco usage or history of. Screenin:44 Abuse screen: Denies threats or abuse. Nutritional screening: No deficits noted. jd3 Tuberculosis screening: No symptoms or risk factors identified. Fall Risk Ambulatory Aid- None/Bed Rest/Nurse Assist (0 pts). Gait- Normal/Bed Rest/Wheelchair (0 pts) Mental Status- Oriented to own ability (0 pts). Total Vargas Fall Scale indicates No Risk (0-24 pts). Assessment: 17:43 General: Appears in no apparent distress. comfortable, Behavior is calm, cooperative, jd3 appropriate for age. Pain: Complains of pain in chest Pain does not radiate. Quality of pain is described as sharp, stabbing, Pain began 2-3 days ago. Aggravated by increased activity. Neuro: Paz Agitation-Sedation Scale (RASS): 0 - Alert and Calm Level of Consciousness is awake, alert, obeys commands, Oriented to person, place, time, situation. Cardiovascular: Capillary refill < 3 seconds Patient's skin is warm and dry. Rhythm is regular. Respiratory: Reports pain with respiration Airway is patent Respiratory effort is Respiratory pattern is regular, symmetrical. GI: No signs and/or symptoms were reported involving the gastrointestinal system. : No signs and/or symptoms were reported regarding the genitourinary system. EENT: No signs and/or symptoms were reported regarding the EENT system. Derm: Skin is intact, Skin is dry, Skin is normal, Skin temperature is warm. Musculoskeletal: Circulation, motion, and sensation intact. Range of motion: intact in all extremities. 18:30 Reassessment: Patient appears in no apparent distress at this time. No changes from jd3 previously documented assessment. Patient and/or family updated on plan of care and expected duration. Pain level reassessed. Patient is alert, oriented x 3, equal unlabored respirations, skin warm/dry/pink. 21:22 General: Appears in no apparent distress. comfortable, Behavior is calm, cooperative. lg3 Pain: Complains of pain in left lateral anterior chest Pain radiates to back. Neuro: No deficits noted. Level of Consciousness is awake, alert, obeys commands, Oriented to person, place, time, situation. Cardiovascular: No deficits noted. Capillary refill < 3 seconds Clubbing of nail beds is absent JVD is absent Patient's skin is warm and dry. Respiratory: No deficits noted. Reports pain with respiration Airway is patent Trachea midline Respiratory effort is even, unlabored, Respiratory pattern is regular, symmetrical. GI: No deficits noted. No signs and/or symptoms were reported involving the gastrointestinal system. Abdomen is flat, non-distended, Bowel sounds present X 4 quads. Abd is soft and non tender X 4 quads. : No deficits noted. No signs and/or symptoms were reported regarding the genitourinary system. EENT: No deficits noted. No signs and/or symptoms were reported regarding the EENT system. Derm: No deficits noted. No signs and/or symptoms reported regarding the dermatologic system. Skin is intact, is thin, Skin is dry, Skin temperature is warm. Musculoskeletal: No deficits noted. Circulation, motion, and sensation intact. Range of motion: intact in all extremities. Vital Signs: 17:10 BP 141 / 77; Pulse 78; Resp 18 S; Temp 98.2; Pulse Ox 100% on R/A; iw 18:30 BP 133 / 68; Pulse 72; Resp 17; Pulse Ox 100% on R/A; jd3 21:23 BP 125 / 62; Pulse 72; Resp 16; Pulse Ox 100% on R/A; lg3 ED Course: 16:58 Patient arrived in ED. am2 16:59 Capo Castellanos DO is Private Physician. am2 17:12 Triage completed. iw 17:13 Arm band placed on. iw 17:15 Roge Quinteros RN is Primary Nurse. jd3 17:28 Trevin Smith PA is PHCP. jr8 17:28 Frantz Urban MD is Attending Physician. jr8 17:44 Patient has correct armband on for positive identification. Bed in low position. Call jd3 light in reach. Side rails up X 1. Client placed on continuous cardiac and pulse oximetry monitoring. NIBP monitoring applied. personnel monitor on. Pulse ox on. NIBP on. 17:44 Patient maintains SpO2 saturation greater than 95% on room air. jd3 18:06 Initial lab(s) drawn, by me, sent to lab. jd3 18:25 XRAY Chest (1 view) In Process Unspecified. EDMS 18:50 Inserted saline lock: 22 gauge in left antecubital area, using aseptic technique. jd3 19:02 Kyree Jordan MD is Hospitalizing Provider. jr8 19:24 Primary Nurse role handed off by Roge Quinteros RN mw2 21:22 Susan Haque RN is Primary Nurse. lg3 21:32 SARS RAPID Sent. lg3 23:51 No provider procedures requiring assistance completed. Patient admitted, IV remains in lg3 place. intact, No redness/swelling at site. Administered Medications: 18:59 Drug: Aspirin Chewable Tablet 324 mg Route: PO; jd3 22:27 Follow up: Response: No adverse reaction lg3 18:59 Drug: morphine 4 mg Route: IVP; Infused Over: 4 mins; Site: left antecubital; jd3 22:27 Follow up: Response: No adverse reaction lg3 18:59 Drug: Zofran (Ondansetron) 4 mg Route: IVP; Site: left antecubital; jd3 22:27 Follow up: Response: No adverse reaction lg3 19:02 Drug: Magnesium Sulfate 2 grams Route: IVPB; Infused Over: 2 hrs; Site: left ha1 antecubital; 20:10 Follow up: Response: No adverse reaction; IV Status: Completed infusion lg3 Medication: 17:44 VIS not applicable for this client. jd3 Outcome: 19:02 Decision to Hospitalize by Provider. newton 23:51 Admitted to Med/surg accompanied by tech, via wheelchair, room 206, Report called to evelin Villavicencio RN 23:51 Condition: stable 23:51 Instructed on the need for admit, Demonstrated understanding of instructions. 02/04 00:35 Patient left the ED. [place] Signatures: Dispatcher [employer] EDMS Supriya Stevenson, RN Trevin Jackman PA PA jr8 Gretel Babcock amRoge Landin RN RN jRoshan Bledsoe 2 Susan Haque RN RN lg3 Ayala, Heidy, RN RN 1 Corrections: (The following items were deleted from the chart) 02/03 19:00 18:45 Inserted saline lock: 22 gauge in left antecubital area, using aseptic technique. shayna jbhupinder
--- NOTE | 2022-02-03 19:03 | EDPHYS ---
Physician Documentation [facility] Name: Linda Menezes Age: 71 yrs Sex: Female : 1950 Arrival Date: 02/03/2022 Time: 16:58 Bed 27 Private MD: Emanuel [facility] ED Physician Frantz Urban HPI: 02/03 18:28 This 71 yrs old Female presents to ER via Ambulatory with complaints of Chest Pain. jr8 18:28 The patient or guardian reports chest pain that is located primarily in the anterior jr8 chest wall, left. Onset: gradually, 2 week(s) ago, and became worse. The pain radiates to the left arm, left back. Associated signs and symptoms: Pertinent positives: diaphoresis, nausea. The chest pain is described as a pressure. Duration: The patient or guardian reports multiple episodes. Modifying factors: The symptoms are alleviated by nothing. the symptoms are aggravated by nothing. Severity of pain: At its worst the pain was moderate in the emergency department the pain is unchanged. The patient has not experienced similar symptoms in the past. The patient has not recently seen a physician. Historical: - Allergies: 17:12 No Known Allergies; iw - PMHx: 17:12 Atrial fibrillation; Myocardial infarction; Type 2 Diabetes Mellitus; kidney disease; iw Hypertensive disorder; - Immunization history:: Client reports receiving the 2nd dose of the Covid vaccine. - Social history:: Smoking status: Patient denies any tobacco usage or history of. ROS: 18:28 Eyes: Negative for injury, pain, redness, and discharge, ENT: Negative for injury, jr8 pain, and discharge, Neck: Negative for injury, pain, and swelling, Respiratory: Negative for shortness of breath, cough, wheezing, and pleuritic chest pain, Abdomen/GI: Negative for abdominal pain, nausea, vomiting, diarrhea, and constipation, Back: Negative for injury and pain, MS/Extremity: Negative for injury and deformity, Skin: Negative for injury, rash, and discoloration, Neuro: Negative for headache, weakness, numbness, tingling, and seizure. 18:28 Cardiovascular: Positive for chest pain, Negative for edema, orthopnea, palpitations, paroxysmal nocturnal dyspnea. Exam: 18:28 Constitutional: This is a well developed, well nourished patient who is awake, alert, jr8 and in no acute distress. Neck: Trachea midline, no thyromegaly or masses palpated, and no cervical lymphadenopathy. Supple, full range of motion without nuchal rigidity, or vertebral point tenderness. No Meningismus. Cardiovascular: Regular rate and rhythm with a normal S1 and S2. No gallops, murmurs, or rubs. Normal PMI, no JVD. No pulse deficits. Respiratory: Lungs have equal breath sounds bilaterally, clear to auscultation and percussion. No rales, rhonchi or wheezes noted. No increased work of breathing, no retractions or nasal flaring. Abdomen/GI: Soft, non-tender, with normal bowel sounds. No distension or tympany. No guarding or rebound. No evidence of tenderness throughout. Back: No spinal tenderness. No costovertebral tenderness. Full range of motion. Skin: Warm, dry with normal turgor. Normal color with no rashes, no lesions, and no evidence of cellulitis. MS/ Extremity: Pulses equal, no cyanosis. Neurovascular intact. Full, normal range of motion. Neuro: Awake and alert, GCS 15, oriented to person, place, time, and situation. Cranial nerves II-XII grossly intact. Motor strength 5/5 in all extremities. Sensory grossly intact. 18:36 ECG was reviewed by the Attending Physician. [facility] Vital Signs: 17:10 BP 141 / 77; Pulse 78; Resp 18 S; Temp 98.2; Pulse Ox 100% on R/A; iw 18:30 BP 133 / 68; Pulse 72; Resp 17; Pulse Ox 100% on R/A; jd3 21:23 BP 125 / 62; Pulse 72; Resp 16; Pulse Ox 100% on R/A; lg3 MDM: 17:28 Patient medically screened. nasrin 19:00 The patient was given aspirin in the Emergency Department. Data reviewed: vital signs, [facility] nurses notes, lab test result(s), EKG, radiologic studies, plain films. Data interpreted: Pulse oximetry: on room air is 100 %. Interpretation: normal. Counseling: I had a detailed discussion with the patient and/or guardian regarding: the historical points, exam findings, and any diagnostic results supporting the discharge/admit diagnosis, lab results, radiology results, the need for further work-up and treatment in the hospital. 02/03 17:29 Order name: Basic Metabolic Panel; Complete Time: 18:45 02/03 17:29 Order name: CBC with Diff; Complete Time: 18:45 02/03 17:29 Order name: Magnesium; Complete Time: 18:45 02/03 17:29 Order name: NT PRO-BNP; Complete Time: 18:45 02/03 17:29 Order name: Troponin HS; Complete Time: 18:45 02/03 21:20 Order name: SARS RAPID mw2 02/03 17:29 Order name: XRAY Chest (1 view); Complete Time: 19:02 02/03 17:29 Order name: EKG; Complete Time: 17:30 02/03 17:29 Order name: Cardiac monitoring; Complete Time: 17:39 02/03 22:35 Order name: SARS-COV-2 Antigen Rapid EDMS 02/03 17:29 Order name: EKG - Nurse/Tech; Complete Time: 17:44 02/03 17:29 Order name: IV Saline Lock; Complete Time: 19:03 02/03 17:29 Order name: Labs collected and sent; Complete Time: 18:06 02/03 17:29 Order name: O2 Per Protocol; Complete Time: 17:39 02/03 17:29 Order name: O2 Sat Monitoring; Complete Time: 17:39 EC:36 Rate is 73 beats/min. Rhythm is regular, Normal Sinus Rhythm. QRS Imperial is Normal. LA jr8 interval is normal at 162 msec. QRS interval is normal at 92 msec. QT interval is normal at 374 msec. Q waves are Old in leads V1, V2. T waves are Inverted in lead V1. ST Segment is elevated in lead V2, 1-2mm. Clinical impression: NSR w/ Non-specific ST/T Changes. Interpreted by me. Reviewed by me. Administered Medications: 18:59 Drug: Aspirin Chewable Tablet 324 mg Route: PO; jd3 22:27 Follow up: Response: No adverse reaction lg3 18:59 Drug: morphine 4 mg Route: IVP; Infused Over: 4 mins; Site: left antecubital; jd3 22:27 Follow up: Response: No adverse reaction lg3 18:59 Drug: Zofran (Ondansetron) 4 mg Route: IVP; Site: left antecubital; jd3 22:27 Follow up: Response: No adverse reaction lg3 19:02 Drug: Magnesium Sulfate 2 grams Route: IVPB; Infused Over: 2 hrs; Site: left ha1 antecubital; 20:10 Follow up: Response: No adverse reaction; IV Status: Completed infusion lg3 Disposition Summary: 02/03/22 19:02 Hospitalization Ordered Hospitalization Status: Observation jr8 Provider: Kyree Jordan jr8 Location: Telemetry/MedSurg (observation) jr8 Condition: Stable jr8 Problem: new jr8 Symptoms: have improved jr8 Bed/Room Type: Standard jr8 Room Assignment: 206(02/03/22 22:48) cg Diagnosis - Chest pain, unspecified jr8 Forms: - Medication Reconciliation Form jr8 - SBAR form jr8 Signatures: Dispatcher [employer] EDMS Frantz Urban MD MD cha Williams, Irene, RN RN Trevin Sloan PA PA jr8 Poly Thomas RN RN cg Davies, Jonathon, RN RN jd3 Ayala, Heidy, RN RN [facility] Susan Haque RN lg3 Corrections: (The following items were deleted from the chart) 18:58 18:36 Rate is 73 beats/min. Rhythm is regular, Normal Sinus Rhythm. QRS Imperial is Normal. jr8 LA interval is normal at 162 msec. QRS interval is normal at 92 msec. QT interval is normal at 374 msec. Q waves are Old in leads V1, V2. T waves are Inverted in lead V1. Clinical impression: NSR w/ Non-specific ST/T Changes. Interpreted by me. Reviewed by me. jr8 22:48 19:02 jr8 cg
--- NOTE | 2022-02-03 20:26 | P.HP ---
Certification for Inpatient Patient admitted to: Observation With expected LOS: <2 Midnights Patient will require the following post-hospital care: None Practitioner: I am a practitioner with admitting privileges, knowledge of patient current condition, hospital course, and medical plan of care. Services: Services provided to patient in accordance with Admission requirements found in Title 42 Section 412.3 of the Code of Federal Regulations Patient History Date of Service: 02/03/22 Primary Care Provider: Emanuel Reason for admission: Chest Pain History of Present Illness: Patient is a 71-year-old female with A. fib on Eliquis, CAD/prior NSTEMI, type 2 diabetes [id number], hypothyroidism, hypertension, and CKD who presented to the ED with complaints of left-sided chest pain. She reports that this chest pain has been going on for about a week now describes it as a stabbing pain under her left breast that radiates into her back. She states it is worsened with inspiration and movement. She reports that it is different than the chest pain she has experienced in the past. She denies any recent illnesses. EKG without any new findings. Vital signs stable. Labs significant for sodium 130, GFR 56, glucose 345, magnesium 1.5, BNP 3000. She was given 324 mg of aspirin, supplemental magnesium, and a morphine and Zofran. Given her cardiac history, ED provider wishes admit patient for observation. Allergies No Known Drug Allergies Allergy (Verified 10/13/21 22:36) Unknown Home Medications: Diphenox/Atropine [Lomotil*] 1 tab PO QID PRN #30 tab 07/28/20 Lovastatin [Altoprev] 1 tab PO DAILY #30 07/28/20 Metformin HCl [Glucophage*] 1 tab PO BIDWM #60 tab 07/28/20 Tramadol HCl [Ultram] 1 tab PO Q6H PRN #30 07/28/20 carvediloL [Carvedilol] 6.25 mg PO BID 30 Days #60 tablet 07/28/20 glipiZIDE [Glucotrol*] 1 tab PO BID #60 tab 07/28/20 Apixaban [Eliquis] 5 mg PO BID #60 tablet 04/16/21 Amlodipine Besylate 5 mg PO DAILY 10/13/21 Duloxetine HCl 30 mg PO BID 10/13/21 Gabapentin 100 mg pe PO BID 10/13/21 Levothyroxine [Synthroid*] 137 mcg PO [id number] 10/13/21 Losartan/Hydrochlorothiazide [Losartan-Hctz 100-25 mg Tab] 1 tab PO DAILY 10/13/21 Melatonin [Melatonin*] 5 mg PO BEDTIME 10/13/21 Omeprazole [Prilosec] 40 mg PO DAILY 10/13/21 Magnesium Chloride [Slow-Mag] 64 mg PO DAILY #30 tab 10/14/21 - Past Medical/Surgical History Diabetic: Yes -: Diabetes mellitus type 2, non insulin dependent -: Hypertension -: Hypothyroidism -: Gout -: GERD -: Restless leg syndrome -: Neuropathy -: RESTLESS LEGS SYNDROME -: Hysterectomy, 1977 -: intussusception of intestines -: compression disc fracture -: Carpal tunnel Sx, 1983 -: R. elbow Sx, 1999 -: [place] CATARACT SX 2014 -: cholecystectomy Psychosocial/ Personal History: The patient is a . She has 2 children. - Family History Father -: Hypertension, Other (see notes) Notes: Parkinson's Mother -: Hypertension, Diabetes, Stroke, Cancer Notes: breast - Social History Smoking Status: Never smoker Alcohol use: No CD- Drugs: No Caffeine use: Yes Place of Residence: Home Review of Systems Respiratory: Shortness of Breath Cardiovascular: Chest Pain Physical Examination - Physical Exam General: Alert, In no apparent distress, Oriented x3 HEENT: Atraumatic, PERRLA, EOMI, Sclerae nonicteric Neck: Supple, 2+ carotid pulse no bruit, No LAD, Without JVD or thyroid abnormality Respiratory: Clear to auscultation bilaterally, Normal air movement Cardiovascular: No edema, Regular rate/rhythm, Normal S1 S2 Gastrointestinal: Normal bowel sounds, No tenderness Musculoskeletal: No tenderness Integumentary: No rashes Neurological: Normal speech, Normal strength at 5/5 x4 extr, Normal tone, Normal affect - Studies Laboratory Data (last 24 hrs) 02/03/22 18:00: WBC 7.7, Hgb 10.9 L, Hct 34.3 L, Plt Count 128 L 02/03/22 18:00: Sodium 130 L, Potassium 4.7, BUN 17, Creatinine 1.06, Glucose 345 H, Magnesium 1.5 L D Assessment and Plan - Problems (Diagnosis) (1) CHF (congestive heart failure) Current Visit: Yes Status: Chronic Qualifiers: Heart failure type: unspecified Heart failure chronicity: chronic Qualified Code(s): I50.9 - Heart failure, unspecified (2) Chest pain Current Visit: Yes Status: Acute Qualifiers: Chest pain type: chest pain on breathing Qualified Code(s): R07.1 - Chest pain on breathing; R07.81 - Pleurodynia (3) Diabetes mellitus, type II Current Visit: Yes Status: Chronic Qualifiers: Diabetes mellitus parts counterman insulin use: without parts counterman use Diabetes mellitus complication status: with hyperglycemia Qualified Code(s): E11.65 - Type 2 diabetes mellitus with hyperglycemia (4) Chronic kidney disease, stage 3 Current Visit: Yes Status: Chronic Qualifiers: Chronic kidney disease stage 3 subtype: stage 3a (GFR 45-59) Qualified Code(s): N18.31 - Chronic kidney disease, stage 3a (5) Hypomagnesemia Current Visit: Yes Status: Chronic (6) Hyperlipidemia Current Visit: Yes Status: Chronic Qualifiers: Hyperlipidemia type: unspecified Qualified Code(s): E78.5 - Hyperlipidemia, unspecified (7) Hypertension Current Visit: Yes Status: Chronic Qualifiers: Hypertension type: primary hypertension Qualified Code(s): I10 - Essential (primary) hypertension (8) Hypothyroidism Current Visit: Yes Status: Chronic Qualifiers: Hypothyroidism type: acquired Qualified Code(s): E03.9 - Hypothyroidism, un specified - Plan -Initial troponin negative. Repeat in 6 hours and trend -Cardiology consulted. Echo ordered -Monitor on telemetry -Lipid, TSH, and A1C pending -ACHS accu checks with mild SS and diabetic diet -Monitor and replete electrolytes per protocol -Reconcile and continue home medications -Eliquis (home med) for VTE ppx -Full code Discharge Plan: Home Plan to discharge in: 24 Hours - Advance Directives Does patient have a Living Will: Yes Does patient have a Durable POA for Healthcare: Yes - Code Status/Comfort Care Code Status Assessed: Yes (Full) Critical Care: No Time Spent Managing Pts Care (In Minutes): 50
[2022-02-03 22:34] LABS: SARS-CoV-2 Antigen Rapid Res Negative (Negative)
[2022-02-04] MEDS ORDERED: ACETAMINOPHEN 500 MG TAB PO PRN (00:08)
[2022-02-04] MEDS ORDERED: NA CHLORIDE 0.9% 1,000 ML IV SCH (00:08)
[2022-02-04] MEDS ORDERED: ALBUTEROL 2.5 MG/3 ML NEB SOL NEB PRN (00:08)
[2022-02-04] MEDS: APIXABAN 5 MG TABLET PO SCH ×3 (00:58→20:01)
[2022-02-04] MEDS: ATORVASTATIN 40 MG TAB PO SCH ×2 (00:58→20:01)
[2022-02-04] MEDS: INSULIN -REGULAR HUMAN 50 UNIT/0.5 ML ML SQ SCH ×5 (00:59→20:03)
[2022-02-04] MEDS ORDERED: ONDANSETRON 4 MG/2 ML VIAL IV PRN (01:00)
[2022-02-04 01:22] VITALS: BMI 26.2
[2022-02-04 02:34] VITALS: O2SAT 100
[2022-02-04] MEDS: MORPHINE 2 MG/ML SYR IV PRN ×3 (04:15→19:43)
[2022-02-04 06:21] LABS: Absolute Lymphocytes (CBC) 2.1 K/uL (0.7-4.9); Hematocrit 32.6 % (36.0-45.0); MCV 86.4 fL (80-100); MPV 8.4 fL (7.6-11.3); RBC Red Blood Cell Count 3.78 M/uL (3.86-4.86)
[2022-02-04 06:43] LABS: Magnesium 1.9 mg/dL (1.8-2.4); Phosphorus 2.5 mg/dL (2.5-4.9); Potassium 4.4 mmol/L (3.5-5.1); Thyroid Stimulating Hormone 1.07 uIU/mL (0.360-3.740)
[2022-02-04] MEDS: ASPIRIN EC 81 MG TAB PO SCH (08:47)
--- NOTE | 2022-02-04 12:07 | P.PN ---
Subjective Date of Service: 02/04/22 Primary Care Provider: Emanuel Chief Complaint: Chest Pain Patient is 71 years of age with A. fib on Eliquis history of coronary artery disease metabolic syndrome and treated with here left-sided chest pain radiating to the back is any fever or chills Review of Systems Unremarkable Physical Examination - Vital Signs Temperature: 97.7 F Blood Pressure: 141/84 Pulse: 74 Respirations: 20 Pulse Ox (%): 93 - Physical Exam General: Alert, Oriented x3 HEENT: Atraumatic Neck: Supple Respiratory: Clear to auscultation bilaterally Cardiovascular: No edema, Regular rate/rhythm - Studies Laboratory Data (last 24 hrs) 02/03/22 18:00: WBC 7.7, Hgb 10.9 L, Hct 34.3 L, Plt Count 128 L 02/03/22 18:00: Sodium 130 L, Potassium 4.7, BUN 17, Creatinine 1.06, Glucose 345 H, Magnesium 1.5 L D Assessment And Plan - Current Problems (Diagnosis) (1) Chest pain Current Visit: Yes Status: Acute Plan: Patient is 71 years of age admitted with acute chest pain chemistries reviewed troponins negative chest x-ray clear plan to do a CT angio vital signs are stable I have ordered a CT angio stable discharge a.m. patient has normal renal function possible discharge in a.m. Qualifiers: Chest pain type: chest pain on breathing Qualified Code(s): R07.1 - Chest pain on breathing; R07.81 - Pleurodynia
--- NOTE | 2022-02-04 13:05 | EKG ---
Test Date: 2022-02-03 Test Time: 17:30:29 Revival Clerk: KALPESH MEASUREMENT RESULTS: Intervals: Rate: 73 SC: 162 QRSD: 92 QT: 374 QTc: 412 Malo: P: 23 SC: 162 QRS: -10 T: 65 INTERPRETIVE STATEMENTS: Normal sinus rhythm Septal infarct, age undetermined Abnormal ECG Compared to ECG 10/13/2021 09:01:16 Ventricular premature complex(es) no longer present Myocardial infarct finding still present Electronically Signed On 02-04-22 13:04:01 CDT by Darren Arboleda
--- NOTE | 2022-02-04 13:48 | RAD REPORT ---
EXAM DESCRIPTION: CT - Chest Angio - 02/04/2022 1:14 pm CLINICAL HISTORY: Rule out PE COMPARISON: Chest For Pe Angio dated 05/31/2020 TECHNIQUE: Dynamically enhanced 3 mm thick images of the chest were obtained during administration o f approximately 150mL Isovue 370 IV contrast. Coronal and oblique MIP reconstruction images were gene rated and reviewed. Exam utilizes a protocol to evaluate the pulmonary arterial tree. All CT scans are performed using dose optimization technique as appropriate and may include automated exposure control or mA/KV adjustment according to patient size. FINDINGS: No pulmonary emboli are identified. The aorta as imaged shows no acute or suspicious finding. No pericardial thickening or effusion. No infiltrate or mass in the lung parenchyma. No pleural effusion or pleural thickening. No mediastinal or hilar suspicious masses. No chest wall masses or abnormal axillary lymphadenopathy. T11 vertebroplasty changes are present. Partial compression changes of T9, T10 and T12 are not clearl y different dating back to 2019. An acute thoracic compression fracture is not confirmed. No patholog ic bone process. IMPRESSION: No pulmonary emboli identified. No other acute or emergent findings.
--- NOTE | 2022-02-04 13:52 | ECHO ---
HEIGHT: 5 ft 3 in WEIGHT: 148 lb 6.4 oz DATE OF STUDY: 02/04/[address]: Madeline Carmona 2-DIMENSIONAL: YES M.MODE: YES DOPPLER: YES COLOR FLOW: YES TDS: NO PORTABLE: YES DEFINITY: NO BUBBLE STUDY: NO DIAGNOSIS: CHEST PAIN CARDIAC HISTORY: CATHERIZATION: NO SURGERY: NO PROSTHETIC VALVE: NO PACEMAKER: NO MEASUREMENTS (cm) DIASTOLIC (NORMALS) SYSTOLIC (NORMALS) IVSd 1.1 (0.6-1.2) LA Diam 3.5 (1.9-4.0) LVEF 56% LVIDd 4.8 (3.5-5.7) LVIDs 3.4 (2.0-3.5) %FS 29% LVPWd 1.2 (0.6-1.2) Ao Diam 3.2 (2.0-3.7) 2 DIMENSIONAL ASSESSMENT: RIGHT ATRIUM: NORMAL LEFT ATRIUM: NORMAL RIGHT VENTRICLE: NORMAL LEFT VENTRICLE: NORMAL TRICUSPID VALVE: NORMAL MITRAL VALVE: PULMONIC VALVE: NORMAL AORTIC VALVE: NORMAL PERICARDIAL EFFUSION: NONE AORTIC ROOT: NORMAL LEFT VENTRICULAR WALL MOTION: NORMAL DOPPLER/COLOR FLOW: MILD MITRAL REGURGITATION. COMMENTS: NORMAL LEFT VENTRICULAR EJECTION FRACTION 55-60%. NORMAL WALL MOTION. MILD MITRAL REGURGITATION. MILD DIASTOLIC DYSFUNCTION. TECHNOLOGIST: America GONZALEZ
[2022-02-05] MEDS: MORPHINE 2 MG/ML SYR IV PRN ×2 (00:54→06:00)
[2022-02-05 06:48] LABS: Magnesium 1.7 mg/dL (1.8-2.4); Potassium 4.4 mmol/L (3.5-5.1)
[2022-02-05] MEDS: INSULIN -REGULAR HUMAN 50 UNIT/0.5 ML ML SQ SCH ×4 (08:31→21:02)
[2022-02-05] MEDS: APIXABAN 5 MG TABLET PO SCH ×2 (08:32→21:02)
[2022-02-05] MEDS: NAPROXEN 250 MG TAB PO SCH ×2 (08:32→21:01)
[2022-02-05] MEDS: ASPIRIN EC 81 MG TAB PO SCH (08:32)
[2022-02-05] MEDS ORDERED: MAGNESIUM SULFATE 1 gm IVPB 1 GM/100 ML BAG IV ONE (09:00)
--- NOTE | 2022-02-05 09:05 | P.PN ---
Subjective Date of Service: 02/05/22 Primary Care Provider: Emanuel Chief Complaint: Chest Pain Patient still continues Continues to complain of severe left-sided chest pain pleuritic in nature no evidence of pneumonia or pulmonary embolism very distressed by this discomfort been persistent and this pain for a couple of weeks echocardiogram is normal Review of Systems General: Weakness Cardiovascular: Chest Pain Physical Examination - Vital Signs Temperature: 97 F Blood Pressure: 123/58 Pulse: 80 Respirations: 16 Pulse Ox (%): 95 - Physical Exam General: Alert, Oriented x3, Moderate distress Respiratory: Clear to auscultation bilaterally, Friction rub Cardiovascular: Regular rate/rhythm Assessment And Plan - Current Problems (Diagnosis) (1) Chest pain Current Visit: Yes Status: Acute Plan: 89 complaining of severe left-sided pleuritic chest pain echocardiogram is normal CT angiogram is also normal patient is anticoagulated start on nonsteroidals labs unremarkable apart from mild anemia is quite possible that she has had a compression fracture evidence of old compression fracture T9-T12 started patient on Bedias DC morphine add Naprosyn ambulate possible discharge when the pain is under control Qualifiers: Chest pain type: chest pain on breathing Qualified Code(s): R07.1 - Chest pain on breathing; R07.81 - Pleurodynia
--- NOTE | 2022-02-05 10:04 | RAD REPORT ---
EXAM DESCRIPTION: RAD - Chest Single View - 02/05/2022 9:37 am CLINICAL HISTORY: Chest pain COMPARISON: Chest Single View dated 02/03/2022; Chest Single View dated 10/13/2021; Chest Single View d ated 04/15/2021; Chest Single View dated 07/31/2020 FINDINGS: Lines: None. Lungs: No evidence of edema or pneumonia. Pleural: No significant pleural effusions or pneumothorax. Cardiac: Mild cardiomegaly. Bones: No acute fractures. Other: IMPRESSION: No acute cardiopulmonary disease.
[2022-02-05] MEDS: HYDROCODONE/APAP 5/325 MG TAB PO PRN ×2 (15:49→21:03)
[2022-02-05 17:04] LABS: Urine Bilirubin Negative (Negative); Urine Blood Trace-intact (Negative); Urine Clarity Clear (Clear); Urine Color Yellow (Yellow); Urine Glucose 3+ (Negative); Urine Protein Negative (Negative); Urine Urobilinogen 0.2 mg/dL (0.2-1.0); Urine pH 5.5 (5.0-7.0)
[2022-02-05 18:12] LABS: Urine Bacteria >50 /HPF (<20); Urine RBC <5 /HPF (None Seen)
--- NOTE | 2022-02-05 19:23 | CON ---
Date of Consultation: 02/05/2022 Reason For Consultation: Chest pain. History Of Present Illness: A 71-year-old female with history of atrial fibrillation, on Eliquis. N o history of coronary artery disease. She had a heart catheterization done in May 2020 by mychal shah with normal coronary arteries; however, she had at that time congestive heart failure with low ejec tion fraction and stress-induced cardiomyopathy with apical ballooning. She claims that she is havin g chest pain every day. She is not able to give specific information about it, but she is short of b reath with exertion and has orthopnea and lower extremity edema. Past Medical History: Atrial fibrillation, diabetes, hypothyroidism, hypertension, chronic kidney di sease, and systolic congestive heart failure. Medications: Refer reconciliation sheet for detailed list. Allergies: NO KNOWN DRUG ALLERGIES. Family History: No premature coronary artery disease or cancer. Social History: Does not smoke or drink. Does not use any drugs. Review of Systems: All systems reviewed and they are negative except as mentioned in the HPI. Physical Examination: Vital Signs: Reviewed. Head and Neck: Pupils are equal and reactive to light. Intact eye movements. No JVD. No cervical lymphadenopathy. Neck: Supple. Thyroid is not enlarged. Lungs: Clear to auscultation bilaterally. No rhonchi, wheezing, or crackles. No accessory muscle u se. Heart: Regular. No extra sounds. Abdomen: Soft, nontender. Bowel sounds positive. No organomegaly. No masses or hernia. No rigidi ty or rebound. Extremities: No edema, clubbing, or cyanosis. Intact pulses. Skin: No rash. Neurologic: Alert, awake, oriented x3. No acute focal deficits appreciated. Investigations: Creatinine 0.87. Troponin times 3 negative. NT-proBNP 3059. Hemoglobin is 10.9. Assessment And Recommendations: 1.Chest pain. Troponins are negative. This is noncardiac in origin. The patient had normal bullard ry angiogram done in May 2020, which makes it unlikely to be the cause of chest pain. CTA PE pr otocol was negative for pulmonary embolism and no other acute findings. 2.Diastolic congestive heart failure with some shortness of breath. Blood pressure is borderline. Recommend low-dose Lasix 20 mg by mouth daily, and this patient at this point can be released and fol low up as an outpatient. 3.Systolic heart failure with history of left ventricular thrombus, hence continue the Eliquis and g uideline directed medical therapy for heart failure. Cardiology will sign off from this case and destinee n to follow up with this patient as an outpatient. SR/MODL Voice ID: [id number] Report ID: [id number]
[2022-02-05] MEDS: ATORVASTATIN 40 MG TAB PO SCH (21:01)
[2022-02-06] MEDS ORDERED: MORPHINE 4 MG/ML SYR IV ONE (00:38)
[2022-02-06] MEDS: NAPROXEN 250 MG TAB PO SCH (08:40)
[2022-02-06] MEDS: APIXABAN 5 MG TABLET PO SCH (08:41)
[2022-02-06] MEDS: INSULIN -REGULAR HUMAN 50 UNIT/0.5 ML ML SQ SCH ×2 (08:41→12:28)
[2022-02-06] MEDS: ASPIRIN EC 81 MG TAB PO SCH (08:41)
--- NOTE | 2022-02-06 11:31 | P.DS ---
Discharge Date: 02/06/22 Primary Care Provider: Emanuel Disposition: ROUTINE DISCHARGE Discharge Condition: GOOD Reason for Admission: Chest Pain Brief History of Present Illness: Patient is a 71-year-old female with A. fib on Eliquis, CAD/prior NSTEMI, type 2 diabetes [id number], hypothyroidism, hypertension, and CKD who presented to the ED with complaints of left-sided chest pain. She reports that this chest pain has been going on for about a week now describes it as a stabbing pain under her left breast that radiates into her back. She states it is worsened with inspiration and movement. She reports that it is different than the chest pain she has experienced in the past. She denies any recent illnesses. EKG without any new findings. Vital signs stable. Labs significant for sodium 130, GFR 56, glucose 345, magnesium 1.5, BNP 3000. She was given 324 mg of aspirin, supplemental magnesium, and a morphine and Zofran. Given her cardiac history, ED provider wishes admit patient for observation. Hospital Course: Extensive work-up that was unremarkable. Patient A1c is significantly elevated. Add jardiance. Cardiac catheterization in 2019 was completely unremarkable. CTA of the chest was negative. Patient is stable for discharge with outpt follow-up. Vital Signs/Physical Exam: Temp Pulse Resp BP Pulse Ox 97.2 F 67 14 136/69 98 02/06/22 08:00 02/06/22 08:00 02/06/22 08:00 02/06/22 08:00 02/06/22 08:00 General: Alert, In no apparent distress, Oriented x3 Laboratory Data at Discharge: WBC 6.3 K/uL (4.3-10.9) D 02/04/22 06:08 Hgb 10.9 g/dL (12.0-15.0) L 02/04/22 06:08 Hct 32.6 % (36.0-45.0) L 02/04/22 06:08 Plt Count 257 K/uL (152-406) D 02/04/22 06:08 Sodium 134 mmol/L (136-145) L 02/05/22 06:08 Potassium 4.4 mmol/L (3.5-5.1) 02/05/22 06:08 BUN 20 mg/dL (7-18) H 02/05/22 06:08 Creatinine 0.96 mg/dL (0.55-1.3) 02/05/22 06:08 Glucose 274 mg/dL (74-106) H 02/05/22 06:08 Phosphorus 2.5 mg/dL (2.5-4.9) 02/04/22 06:08 Magnesium 1.7 mg/dL (1.8-2.4) L 02/05/22 06:08 Triglycerides 99 mg/dL (<150) 02/04/22 06:08 Cholesterol 138 mg/dL (<200) 02/04/22 06:08 HDL Cholesterol 58 mg/dL (40-60) 02/04/22 06:08 Cholesterol/HDL Ratio 2.38 02/04/22 06:08 Home Medications: Metformin HCl [Glucophage*] 1 tab PO BIDWM #60 tab 07/28/20 Tramadol HCl [Ultram] 1 tab PO Q6H PRN #30 07/28/20 carvediloL [Carvedilol] 6.25 mg PO BID 30 Days #60 tablet 07/28/20 Apixaban [Eliquis] 5 mg PO BID #60 tablet 04/16/21 Amlodipine Besylate 5 mg PO DAILY 10/13/21 Duloxetine HCl 30 mg PO BID 10/13/21 Gabapentin 100 mg PO BID 10/13/21 Levothyroxine [Synthroid*] 137 mcg PO [id number] 10/13/21 Losartan/Hydrochlorothiazide [Losartan-Hctz 100-25 mg Tab] 1 tab PO DAILY 10/13/21 Melatonin [Melatonin*] 5 mg PO BEDTIME 10/13/21 Omeprazole [Prilosec] 40 mg PO DAILY 10/13/21 Diphenox/Atropine [Lomotil*] 1 tab PO QIDP PRN 02/04/22 Lovastatin [Altoprev] 1 tab PO DAILY AT SUPPER 02/04/22 Potassium Chloride [K-Dur] 20 meq PO BIDWM 02/04/22 glipiZIDE [Glucotrol*] 5 mg PO BID 02/04/22 Empagliflozin [Jardiance] 10 mg PO DAILY #30 02/06/22 Furosemide [Lasix] 20 mg PO DAILY #30 tab 02/06/22 Hydrocodone 7.5/APAP 325 [[place] 7.5/325 mg] 1 tab PO Q6H PRN #30 tab 02/06/22 New Medications: Empagliflozin [Jardiance] 10 mg PO DAILY #30 Furosemide [Lasix] 20 mg PO DAILY #30 tab Hydrocodone 7.5/APAP 325 [[place] 7.5/325 mg] 1 tab PO Q6H PRN #30 tab PRN Reason: Pain Physician Discharge Instructions: OK TO DC IV AND DC HOME FOLLOW-UP WITH PRIMARY CARE PROVIDER IN 1-2 WEEKS FOLLOW-UP WITH CARDIOLOGY IN 1-2 WEEKS RETURN TO THE ER IF SYMPTOMS WORSENS CALL DR. OKEEFE AT [phone] IF ANY QUESTIONS REGARDING HOSPITAL STAY. PLEASE CALL THE FLOOR AT [phone] IF ANY MEDICATION OR NURSING QUESTIONS. Diet: AHA Activity: Fall precautions Followup: Capo Castellanos DO [Primary Care Provider] - Time spent managing pt's care (in minutes): 35
[2022-02-06 12:32] VITALS: BP 162/93; TEMP 98.6
--- NOTE | 2022-02-07 03:04 | CON ---
Date of Consultation: 02/04/[address] Jordan on 02/03/2022. I saw the patient on 02/04/2022. Reason For Consultation: Chest pain. History Of Present Illness: Ms. Menezes is a 71-year-old, has a known ejection fraction of 30%, n ormal coronaries, diabetes, hypertension, dyslipidemia, atrial fibrillation, chronic renal disease, a nd gastroesophageal reflux disease. Her pain is constant, had chills 2 weeks. Pain is just there, i t does not radiate, is not improved with exertion, and is not relieved by rest. It occasionally gets worse with deep breathing. No nausea, vomiting, diaphoresis, PND, orthopnea, pedal edema, palpitati ons, or syncope. CT has been ruled out. Glucose was 396. BNP is 3059. EKG is nonspecific. Chest x-ray is normal. Her pain persists. Allergies: NONE. Past Medical History: As stated above. Review of Systems: Negative. Social History: Negative. Family History: Noncontributory. Medications: At home include, glipizide, metformin, Norvasc, Eliquis, lovastatin, Coreg 6.25 mg twic e a day, potassium, Neurontin, Synthroid, losartan, and hydrochlorothiazide. Physical Examination: General: She was pleasant, no acute distress. Vital Signs: Stable. Sinus rhythm. Afebrile. HEENT: Negative. Neck: Supple. No bruit, lymphadenopathy, JVD, or thyromegaly. Chest: Clear to auscultation and percussion. Cardiac: Revealed a regular rhythm and rate without any murmurs, gallops, or rubs. Abdomen: Benign. Extremities: Revealed no clubbing, cyanosis, or edema. Diagnostic Data: As stated earlier. Impression And Plan: Atypical chest pain, most likely gastrointestinal in origin. Ms. Menezes cardoza d a normal heart catheterization with normal coronaries very recently with an ejection fraction 30%, but she is not in acute congestive heart failure. She has a history of hypertension, diabetes, and d yslipidemia. Her diabetes is poorly controlled. She has had a history of gastroesophageal reflux di sease. Her atrial fibrillation is controlled. She is in sinus rhythm, on beta-blockers and on Eliqu is. She has coronary artery disease, but is improved. I suggest an echocardiogram and diabetes cont rol, and possibly a GI workup. It would be stewart to put her on a proton pump inhibitor. We will cont inue to follow her. ORESTES/MELISSA Voice ID: [id number] Report ID: [id number]
== END 2022-02-06 13:34 | disposition home or self-care (01) ==
LOC: ER 16:57 → ERHOLD 20:21 → 2ND 23:42
PROVIDERS: ADMIT Internal Medicine Nephrology; ATTEND Hospitalist
DX: R07.81 Pleurodynia (principal); I13.0 Hypertensive heart and chronic kidney disease with heart failure and stage 1 through stage 4 chronic kidney disease, or unspecified chronic kidney disease; I50.42 Chronic combined systolic (congestive) and diastolic (congestive) heart failure; E11.22 Type 2 diabetes mellitus with diabetic chronic kidney disease; E11.65 Type 2 diabetes mellitus with hyperglycemia; N18.31 Chronic kidney disease, stage 3a; I25.10 Atherosclerotic heart disease of native coronary artery without angina pectoris; I48.91 Unspecified atrial fibrillation; I25.2 Old myocardial infarction; E78.5 Hyperlipidemia, unspecified; E83.42 Hypomagnesemia; E03.9 Hypothyroidism, unspecified; D64.9 Anemia, unspecified; K21.9 Gastro-esophageal reflux disease without esophagitis; G25.81 Restless legs syndrome; M10.9 Gout, unspecified; E11.40 Type 2 diabetes mellitus with diabetic neuropathy, unspecified; Z20.822 Contact with and (suspected) exposure to COVID-19; Z79.84 Long term (current) use of oral hypoglycemic drugs; Z79.01 Long term (current) use of anticoagulants; Z79.899 Other long term (current) drug therapy; Z90.710 Acquired absence of both cervix and uterus; Z90.49 Acquired absence of other specified parts of digestive tract; Z82.49 Family history of ischemic heart disease and other diseases of the circulatory system; Z82.0 Family history of epilepsy and other diseases of the nervous system; Z83.3 Family history of diabetes mellitus; Z82.3 Family history of stroke; Z80.3 Family history of malignant neoplasm of breast
CPT/HCPCS: 96365; 93005; 93306; 87088; 85025 ×2; 81001; 87086; 80048 ×3; 36415 ×2; 83735 ×3; 84100; 80061; 82947 ×11; 84443; 87077; 87186; 83036; 84484 ×3; 83880; 71275; 71045 ×2; 96375; 99285; 87811; Q9967; J1815 ×8; J3475 ×2; J2270 ×5; J7030; J2405; G0378 ×4

== ENCOUNTER 2022-02-11 10:51 | Inpatient (IN) | payer OTHER ==
[~2022-02-11 10:51] MED LIST: FENTANYL 25 MCG/PATCH TD SCH
--- OUTSIDE RECORDS SUMMARY | 2022-02-11 10:56 | XMS REPORT | Continuity of Care Document ---
:1950 Author Organization [facility] t Address [address] [place] [address] Care Team Providers Name Role Phone Emanuel Capo Núñez Attending Clinician Unavailable JAVI MOORE Attending Clinician Unavailable Murtaza Persaud Attending Clinician Unavailable Physician, No Primary or Family Admitting Clinician Unavaila ble Payers Payer Name Policy Type Policy Number Effective Date Expiration Date S ource Problems This patient has no known problems. Allergies, Adverse Reactions, Alerts Allergy Allergy Status Severity Reaction(s) Onset Inactive Treating Comm ents Source Name Type Date Date Clinician No Known DA Active U 2019- [facility] Allergie - Clear s 00:00: Dai 00 [facility] No Known DA Active U 2019-07 [facility] Allergie 2- Clear s 00:00: Dai 00 [facility] NO KNOWN Drug Active [facility] ALLERGIE Class ity of [facility] Medications This patient has no known medications. Procedures This patient has no known procedures. Encounters Start End Encounter Admission Attending Care Care Encounter Source Date/Time Date/Time Type Type Clinicians Facility Department ID 2021-10-19 Outpatient Castellanos, STLMLC STLMLC [id number] Common 09:26:01 Capo [address]80 [facility] 2021-09-09 Outpatient Castellanos, STLMLC STLMLC [id number] Common 11:11:01 Capo [facility] 2021-08-05 Outpatient Castellanos, STLMLC STLMLC [id number] Common 14:00:46 Capo 81076 [facility] 2021-08-05 Outpatient Castellanos, STLMLC STLMLC [id number] Common 14:00:15 Capo 25476 [facility] 2021-08-05 Outpatient Castellanos, STLMLC STLMLC [id number] Common 13:59:27 Capo 50238 [facility] 2021-08-05 Outpatient Castellanos, STLMLC STLMLC [id number] Common 13:44:29 Capo 48023 [facility] 2021-08-05 Outpatient Castellanos, STLMLC STLMLC [id number] Common 13:35:22 Capo 27502 [facility] 2022-02-03 2022-02-03 ambulatory STLMLC STLMLC [id number] Common 00:00:00 00:00:00 [facility] 2022-01-25 2022-01-25 ambulatory STLMLC STLMLC [id number] Common 00:00:00 00:00:00 [facility] 2022-01-25 2022-01-25 ambulatory STLMLC STLMLC [id number] Common 00:00:00 00:00:00 [facility] 2022-01-18 2022-01-18 ambulatory STLMLC STLMLC [id number] Common 00:00:00 00:00:00 [facility] 2021-10-19 2021-10-19 ambulatory STLMLC STLMLC [id number] Common 00:00:00 00:00:00 [facility] 2021-10-12 2021-10-12 ambulatory STLMLC STLMLC [id number] Common 00:00:00 00:00:00 [facility] 2021-09-16 2021-09-16 ambulatory STLMLC STLMLC [id number] Common 00:00:00 00:00:00 [facility] 2021-09-16 2021-09-16 ambulatory STLMLC STLMLC [id number] Common 00:00:00 00:00:00 [facility] 2021-09-09 2021-09-09 ambulatory STLMLC STLMLC [id number] Common 00:00:00 00:00:00 [facility] 2021-05-28 2021-05-28 ambulatory STLMLC STLMLC [id number] Common 00:00:00 00:00:00 [facility] 2021-05-05 2021-05-05 ambulatory STLMLC STLMLC [id number] Common 00:00:00 00:00:00 [facility] 2021-05-04 2021-05-04 Outpatient STLMLC STLMLC [id number] Common 00:00:00 00:00:00 [facility] 2021-05-01 2021-05-01 Outpatient STLMLC STLMLC [id number] Common 00:00:00 00:00:00 [facility] 2021-05-01 2021-05-01 Outpatient STLMLC STLMLC [id number] Common 00:00:00 00:00:00 [facility] 2021-04-22 2021-04-22 Outpatient STLMLC STLMLC [id number] Common 00:00:00 00:00:00 [facility] 2021-04-15 2021-04-15 Outpatient STLMLC STLMLC [id number] Common 00:00:00 00:00:00 [facility] 2021-02-17 2021-02-17 Outpatient STLMLC STLMLC [id number] Common 00:00:00 00:00:00 [facility] 2021-02-13 2021-02-13 Outpatient STLMLC STLMLC [id number] Common 00:00:00 00:00:00 [facility] 2020-12-22 2020-12-22 Outpatient Jean-Claude MOORE [facility] [id number] Univers 09:30:00 09:30:00 JAVI 290319 ity [facility] 2020-06-20 2020-07-31 Inpatient HCAPM JEF [id number] 97 [facility] 12:23:00 11:49:49 80 [facility] 2020-06-24 2020-06-24 Outpatient SHILPA Persaud LABO [id number] [facility] 23:22:00 23:22:00 Murtaza 64 [facility] Results Test Description Test Time Test Comments Results Result Comments Source GLUCOSE BEDSIDE TESTING 2020-06-30 11:56:00 Test Item Value Reference Range Interpretation Comme nts GLUCOSE BEDSIDE TESTING (test code = GLUBED) 187 mg/dL 70-110 H GLUCOSE BEDSIDE [id number] 08:24:00 Test Item Value Reference Range Interpretation Comments GLUCOSE BEDSIDE TESTING (test code 167 mg/dL 70-110 H = GLUBED) GLUCOSE BEDSIDE [id number] 20:51:00 Test Item Value Reference Range Interpretation Comments GLUCOSE BEDSIDE TESTING (test code 219 mg/dL 70-110 H = GLUBED) GLUCOSE BEDSIDE [id number] 17:31:00 Test Item Value Reference Range Interpretation Comments GLUCOSE BEDSIDE TESTING (test code = 96 mg/dL 70-110 N GLUBED) GLUCOSE BEDSIDE [id number] 12:08:00 Test Item Value Reference Range Interpretation Comments GLUCOSE BEDSIDE TESTING (test code 215 mg/dL 70-110 H = GLUBED) GLUCOSE BEDSIDE [id number] 08:14:00 Test Item Value Reference Range Interpretation Comments GLUCOSE BEDSIDE TESTING (test code 204 mg/dL 70-110 H = GLUBED) GLUCOSE BEDSIDE [id number] 20:32:00 Test Item Value Reference Range Interpretation Comments GLUCOSE BEDSIDE TESTING (test code 242 mg/dL 70-110 H = GLUBED) GLUCOSE BEDSIDE [id number] 17:18:00 Test Item Value Reference Range Interpretation Comments GLUCOSE BEDSIDE TESTING (test code 236 mg/dL 70-110 H = GLUBED) GLUCOSE BEDSIDE [id number] 12:33:00 Test Item Value Reference Range Interpretation Comments GLUCOSE BEDSIDE TESTING (test code 224 mg/dL 70-110 H = GLUBED) GLUCOSE BEDSIDE [id number] 08:31:00 Test Item Value Reference Range Interpretation Comments GLUCOSE BEDSIDE TESTING (test code 164 mg/dL 70-110 H = GLUBED) CBC W/AUTO [id number] 06:15:00 Test Item Value Reference Range Interpretation [...] NO DIFF/SCN CRITERIA = MDIFF) GLUCOSE BEDSIDE [id number] 21:03:00 Test Item Value Reference Range Interpretation Comments GLUCOSE BEDSIDE TESTING (test code 319 mg/dL 70-110 H = GLUBED) GLUCOSE BEDSIDE [id number] 17:20:00 Test Item Value Reference Range Interpretation Comments GLUCOSE BEDSIDE TESTING (test code 192 mg/dL 70-110 H = GLUBED) GLUCOSE BEDSIDE [id number] 12:30:00 Test Item Value Reference Range Interpretation Comments GLUCOSE BEDSIDE TESTING (test code 286 mg/dL 70-110 H = GLUBED) GLUCOSE BEDSIDE [id number] 08:24:00 Test Item Value Reference Range Interpretation Comments GLUCOSE BEDSIDE TESTING (test code 193 mg/dL 70-110 H = GLUBED) GLUCOSE BEDSIDE [id number] 20:46:00 Test Item Value Reference Range Interpretation Comments GLUCOSE BEDSIDE TESTING (test code 161 mg/dL 70-110 H = GLUBED) GLUCOSE BEDSIDE [id number] 16:40:00 Test Item Value Reference Range Interpretation Comments GLUCOSE BEDSIDE TESTING (test code 302 mg/dL 70-110 H = GLUBED) GLUCOSE BEDSIDE [id number] 12:17:00 Test Item Value Reference Range Interpretation Comments GLUCOSE BEDSIDE TESTING (test code 330 mg/dL 70-110 H = GLUBED) GLUCOSE BEDSIDE [id number] 08:39:00 Test Item Value Reference Range Interpretation Comments GLUCOSE BEDSIDE TESTING (test code 144 mg/dL 70-110 H = GLUBED) BASIC METABOLIC [id number] 06:08:00 Test Item Value Reference Range Interpretation [...] CA) 8.7 MG/DL 8.5-10.1 N CBC W/AUTO [id number] 05:50:00 Test Item Value Reference Range Interpretation [...] NO DIFF/SCN CRITERIA = MDIFF) GLUCOSE BEDSIDE [id number] 20:09:00 Test Item Value Reference Range Interpretation Comments GLUCOSE BEDSIDE TESTING (test code 304 mg/dL 70-110 H = GLUBED) GLUCOSE BEDSIDE [id number] 19:39:00 Test Item Value Reference Range Interpretation Comments GLUCOSE BEDSIDE TESTING (test code 175 mg/dL 70-110 H = GLUBED) Coronavirus 2019 nCoV [id number] 11:34:00 Test Item Value Reference Range Interpretation Comments Coronavirus 2019 nCoV Bedside (test Positive Negative code = [id number]) BASIC METABOLIC [id number] 05:48:00 Test Item Value Reference Range Interpretation [...] CA) 8.8 MG/DL 8.5-10.1 N CBC W/AUTO [id number] 05:34:00 Test Item Value Reference Range Interpretation [...] NO DIFF/SCN CRITERIA = MDIFF) GLUCOSE BEDSIDE [id number] 20:14:00 Test Item Value Reference Range Interpretation Comments GLUCOSE BEDSIDE TESTING (test code 231 mg/dL 70-110 H = GLUBED) GLUCOSE BEDSIDE [id number] 16:38:00 Test Item Value Reference Range Interpretation Comments GLUCOSE BEDSIDE TESTING (test code 225 mg/dL 70-110 H = GLUBED) GLUCOSE BEDSIDE [id number] 12:08:00 Test Item Value Reference Range Interpretation Comments GLUCOSE BEDSIDE TESTING (test code 307 mg/dL 70-110 H = GLUBED) GLUCOSE BEDSIDE [id number] 08:28:00 Test Item Value Reference Range Interpretation Comments GLUCOSE BEDSIDE TESTING (test code 114 mg/dL 70-110 H = GLUBED) BASIC METABOLIC [id number] 06:55:00 Test Item Value Reference Range Interpretation [...] CA) 8.6 MG/DL 8.5-10.1 N CBC W/AUTO [id number] 06:37:00 Test Item Value Reference Range Interpretation [...] NO DIFF/SCN CRITERIA = MDIFF) GLUCOSE BEDSIDE [id number] 20:59:00 Test Item Value Reference Range Interpretation Comments GLUCOSE BEDSIDE TESTING (test code 112 mg/dL 70-110 H = GLUBED) GLUCOSE BEDSIDE [id number] 16:32:00 Test Item Value Reference Range Interpretation Comments GLUCOSE BEDSIDE TESTING (test code 240 mg/dL 70-110 H = GLUBED) GLUCOSE BEDSIDE [id number] 12:49:00 Test Item Value Reference Range Interpretation Comments GLUCOSE BEDSIDE TESTING (test code 266 mg/dL 70-110 H = GLUBED) GLUCOSE BEDSIDE [id number] 08:35:00 Test Item Value Reference Range Interpretation Comments GLUCOSE BEDSIDE TESTING (test code 186 mg/dL 70-110 H = GLUBED) CBC W/AUTO [id number] 06:52:00 Test Item Value Reference Range Interpretation [...] NT WITH AUTO DIFFERENTI AL. BASIC METABOLIC [id number] 06:28:00 Test Item Value Reference Range Interpretation [...] code = CA) 8.8 MG/DL 8.5-10.1 N [id number] 06:28:00 Test Item Value Reference Range Interpretation Comments PHOSPHOROUS (test code = PHOS) 2.6 MG/DL 2.5-4.9 N LACTIC DEHYDROGENASE(LDH)2020-06-23 06:28:00 Test Item Value Reference Range Interpretation Comments LACTIC DEHYDROGENASE(LDH) (test 271 Unit/L 84-246 H code = LDH) [id number] 06:28:00 Test Item Value Reference Range Interpretation Comments MAGNESIUM (test code = MAG) 2.1 MG/DL 1.8-2.4 N CBC W/AUTO [id number] 06:15:00 Test Item Value Reference Range Interpretation [...] code = DIFF/SCN CRITERIA MDIFF) GLUCOSE BEDSIDE [id number] 19:43:00 Test Item Value Reference Range Interpretation Comments GLUCOSE BEDSIDE TESTING (test code 405 mg/dL 70-110 H = GLUBED) GLUCOSE BEDSIDE [id number] 16:28:00 Test Item Value Reference Range Interpretation Comments GLUCOSE BEDSIDE TESTING (test code 299 mg/dL 70-110 H = GLUBED) GLUCOSE BEDSIDE [id number] 12:20:00 Test Item Value Reference Range Interpretation Comments GLUCOSE BEDSIDE TESTING (test code 273 mg/dL 70-110 H = GLUBED) GLUCOSE BEDSIDE [id number] 08:12:00 Test Item Value Reference Range Interpretation Comments GLUCOSE BEDSIDE TESTING (test code 118 mg/dL 70-110 H = GLUBED) BASIC METABOLIC [id number] 06:50:00 Test Item Value Reference Range Interpretation [...] code = CA) 9.3 MG/DL 8.5-10.1 N [id number] 06:50:00 Test Item Value Reference Range Interpretation Comments PHOSPHOROUS (test code = PHOS) 2.6 MG/DL 2.5-4.9 N LACTIC DEHYDROGENASE(LDH)2020-06-22 06:50:00 Test Item Value Reference Range Interpretation Comments LACTIC DEHYDROGENASE(LDH) (test 326 Unit/L 84-246 H code = LDH) [id number] 06:50:00 Test Item Value Reference Range Interpretation Comments MAGNESIUM (test code = MAG) 1.7 MG/DL 1.8-2.4 L [id number] 06:47:00 Test Item Value Reference Range Interpretation Comments D-DIMER (test code = DDIMER) 3044 ng/mLFEU 215-500 HH CBC W/AUTO [id number] 06:39:00 Test Item Value Reference Range Interpretation [...] NO DIFF/SCN CRITERIA = MDIFF) GLUCOSE BEDSIDE [id number] 21:52:00 Test Item Value Reference Range Interpretation Comments GLUCOSE BEDSIDE TESTING (test code 195 mg/dL 70-110 H = GLUBED) GLUCOSE BEDSIDE [id number] 16:38:00 Test Item Value Reference Range Interpretation Comments GLUCOSE BEDSIDE TESTING (test code 374 mg/dL 70-110 H = GLUBED) GLUCOSE BEDSIDE [id number] 12:17:00 Test Item Value Reference Range Interpretation Comments GLUCOSE BEDSIDE TESTING (test code 420 mg/dL 70-110 H = GLUBED) GLUCOSE BEDSIDE [id number] 08:22:00 Test Item Value Reference Range Interpretation Comments GLUCOSE BEDSIDE TESTING (test code 238 mg/dL 70-110 H = GLUBED) CBC W/AUTO [id number] 05:54:00 Test Item Value Reference Range Interpretation [...] (test code NO DIFF/SCN CRITERIA = MDIFF) [id number] 05:21:00 Test Item Value Reference Range Interpretation Comments D-DIMER (test code = DDIMER) 4184 ng/mLFEU 215-500 HH BASIC METABOLIC [id number] 05:21:00 Test Item Value Reference Range Interpretation [...] code = CA) 8.5 MG/DL 8.5-10.1 N [id number] 05:21:00 Test Item Value Reference Range Interpretation Comments PHOSPHOROUS (test code = PHOS) 2.9 MG/DL 2.5-4.9 N LACTIC DEHYDROGENASE(LDH)2020-06-21 05:21:00 Test Item Value Reference Range Interpretation Comments LACTIC DEHYDROGENASE(LDH) (test 271 Unit/L 84-246 H code = LDH) [id number] 05:21:00 Test Item Value Reference Range Interpretation Comments MAGNESIUM (test code = MAG) 1.4 MG/DL 1.8-2.4 L CBC W/AUTO [id number] 05:04:00 Test Item Value Reference Range Interpretation [...] code = DIFF/SCN CRITERIA MDIFF) THROMBOPLASTIN TIME [id number] 02:51:00 Test Item Value Reference Range Interpretation Comments THROMBOPLASTIN TIME PARTIAL 160.7 SECONDS 26-35 HH (test code = PTT) GLUCOSE BEDSIDE [id number] 21:12:00 Test Item Value Reference Range Interpretation Comments GLUCOSE BEDSIDE TESTING (test code 297 mg/dL 70-110 H = GLUBED) THROMBOPLASTIN TIME [id number] 20:35:00 Test Item Value Reference Range Interpretation Comments THROMBOPLASTIN TIME PARTIAL 35.2 SECONDS 26-35 H (test code = PTT) GLUCOSE BEDSIDE [id number] 16:25:00 Test Item Value Reference Range Interpretation [...] = LDL/HDL) 0.80 Ratio 1.48-3.22 Avg L [id number] 15:14:00 Test Item Value Reference Range Interpretation [...] yby method. Completed by Nursing: NO- CTA [id number] 14:47:00 [facility] 1950 Sex: F Name: LINDA MENEZES [facility] : 1950 Age/S: 70 / F [address] Unit #: [id number] Loc: [place] [address] Phys: Nito Shipley MD Acct: [id number] Dis Date: Status: REG ER PHONE #: [phone] Exam Date: 06/20/20207 FAX #: Reason: Chest Pain r/o PE EXAMS: CPT: [id number] CTA CHEST CTA chest, contrast-enhanced (pulmonary embolism protocol }.Reconstructed [...] was performed on pulmonary embolism protocol. Reconstructed CTangiogram images are included. Limited filling of aorta [...] possibly Covid pneumonia. Do not show any bulla formation, mass, infiltrates or pneumothorax. Reformatted MIP images do not show emboli. Aorticappearance is intact. IMPRESSION: No large vessel acute emboli suggested. Normal aortic diameter seen. 2 small filling central defects mainly right lower lobe that are surrounded by normal perfusion likely represent old/residual PE findings. PAGE 1 Signed Report (CONTINUED) Name: LINDA MENEZES [facility] : 1950 Age/S: 70 / F [address] Unit #: [id number] Loc: [place] [address] Phys: Nito Shipley MD Acct: [id number] Dis Date: Status: REG ER PHONE #: [phone] ExamDate: 06/20/2020 1426 FAX #: Reason: Chest Pain r/o PE EXAMS: CPT: [id number] CTA CHEST <Continued> Cardiomegaly with small to moderate pericardial effusion. Bilateral pneumonia. Location: U19 at 1447 Reported and signed by: Ricky Alegre M.D CC: Nito Shipley MD Technologist:Janett Graf, RT(R)(CT)(MRI) CTDI: DLP: Trnscb Date/Time: 06/20/2020 (6772) [email or web address] Orig Print D/T: S: 06/20/2020 (1672) PAGE 2 Signed ReportCoronavirus 2019 nCoV [id number] 13:48:00 Test Item Value Reference Range Interpretation Comments Coronavirus 2018 nCoV Bedside (test Positive Negative code = [id number]) BASIC METABOLIC [id number] 13:24:00 Test Item Value Reference Range Interpretation [...] Unit/L 26-192 N CK) Completed by Nursing: [id number] 13:24:00 Test Item Value Reference Range Interpretation [...] delmy yby method. Completed by Nursing: NOPROTHROMBIN [id number] 13:03:00 Test Item Value Reference Range Interpretation Comments PT PATIENT (test code = PTP) 15.8 SECONDS 9.3-12.9 H INTERNATIONAL NORMAL RATIO 1.39 INR Unit 0.8-1.2 H (test code = INR) THROMBOPLASTIN TIME [id number] 13:03:00 Test Item Value Reference Range Interpretation Comments THROMBOPLASTIN TIME PARTIAL 18.0 SECONDS 26-35 L (test code = PTT) - XR CHEST 1 [id number] 13:02:00 [facility] : 1950 Sex: F Name: LINDA MENEZES [facility] : 1950 Age/S: 70 / F [address] Unit #: [id number]: [place] [address] Phys: Nito Shipley MD Acct: [id number] Dis Date: Status: REG ER PHONE #: [phone] Exam Date: 06/20/2020 1240 FAX #: Reason: chest pain EXAMS: CPT: [id number] XR CHEST 1 V 30295 Fluoro Time: DAP (Gy m2): Air Kerma (mGy): HISTORY: Chest pain. Location: C3 COMPARISON:None FINDINGS: Heart is mildly prominent. Aortic calcifications are present. There is patchy mixed interstitial and airspace opacities bilaterally compatible with pneumonia. No pneumothorax. IMPRESSION:1. Patchy bilateral opacities compatible with pneumonia. at 1302 Reported and signed by: Ricky Munoz M.D. CC: Nito Shipley MD PAGE 1 Signed Report Name: LINDA MENEZES [place] : 1950 Age/S: 70 / F [address] [place] [address] Unit #: [id number] Loc: [place] [address] Phys: Nito Shipley MD Acct: [id number] Dis Date: Status: REG ER PHONE #: [phone] Exam Date: 06/20/2020 1245 FAX #: Reason: chest pain EXAMS: CPT: [id number] XR CHEST 1 V 19836 Fluoro Time: DAP (Gy m2): Air Kerma (mGy): <Continued> Technologist: Anna Maldonado, RT(R) Trnscb Date/Time: 06/20/2020 (1302) [email or web address] Orig Print D/T: S: 06/20/2020 (0402) PAGE 2 Signed ReportCBC W/O [id number] 12:58:00 Test Item Value Reference Range Interpretation [...]
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
[2022-02-11] MEDS ORDERED: FENTANYL CITR 100 MCG/2 ML ONE ×2 (11:57→12:40)
--- NOTE | 2022-02-11 12:07 | RAD REPORT ---
EXAM DESCRIPTION: RAD - Forearm Right - 02/11/2022 11:47 am CLINICAL HISTORY: Pain COMPARISON: No comparisons FINDINGS: Diffuse osteopenia is seen. Mild radiocarpal joint arthritic changes. No acute fracture or dislocation.
[2022-02-11 12:21] LABS: SARS-CoV-2 Antigen Rapid Res Negative (Negative)
[2022-02-11 12:33] LABS: Absolute Lymphocytes (CBC) 0.9 K/uL (0.7-4.9); Hematocrit 33.1 % (36.0-45.0); Lymphocytes % 9.5 % (15.3-44.8); MCV 87.8 fL (80-100); MPV 8.9 fL (7.6-11.3); RBC Red Blood Cell Count 3.77 M/uL (3.86-4.86)
[2022-02-11] MEDS ORDERED: NA CHLORIDE 0.9% 1,000 ML ONE (12:40)
[2022-02-11 12:53] LABS: Potassium 4.4 mmol/L (3.5-5.1); Troponin High Sensitivity 44.5 pg/mL (<58.9)
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
[2022-02-11] MEDS ORDERED: NA CHLORIDE 0.9% 1,000 ML IV SCH (15:20)
[2022-02-11] MEDS ORDERED: FENTANYL 25 MCG/PATCH TD ONE (15:21)
[2022-02-11] MEDS: FENTANYL 25 MCG/PATCH TD SCH (15:24)
[2022-02-11] MEDS: INSULIN -REGULAR HUMAN 50 UNIT/0.5 ML ML SQ SCH ×2 (16:30→21:46)
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
[2022-02-11] MEDS ORDERED: ALBUTEROL 2.5 MG/3 ML NEB SOL NEB PRN (17:00)
[2022-02-11] MEDS ORDERED: INSULIN -REGULAR HUMAN 50 UNIT/0.5 ML ML ONE ×3 (19:03→20:59)
[2022-02-11] MEDS ORDERED: HYDROCODONE/APAP 5/325 MG TAB ONE (19:11)
[2022-02-11] MEDS: HYDROCODONE/APAP 5/325 MG TAB PO PRN (19:15)
[2022-02-11] MEDS ORDERED: Ringers Lactate 1,000 ML IV ONE (20:34)
[2022-02-11] MEDS ORDERED: MORPHINE 2 MG/ML SYR ONE (20:34)
[2022-02-11] MEDS: FAMOTIDINE 20 MG/2 ML VIAL IV SCH (21:45)
[2022-02-11] MEDS: Ringers Lactate 1,000 ML IV SCH (21:45)
[2022-02-11] MEDS: ALBUTEROL 2.5 MG/3 ML NEB SOL NEB SCH (22:35)
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
[2022-02-12] MEDS: INSULIN -REGULAR HUMAN 50 UNIT/0.5 ML ML SQ SCH ×6 (00:11→21:59)
[2022-02-12] MEDS: Ringers Lactate 1,000 ML IV SCH ×5 (01:00→23:01)
[2022-02-12] MEDS: HYDROCODONE/APAP 5/325 MG TAB PO PRN ×4 (01:31→22:58)
[2022-02-12] MEDS: ALBUTEROL 2.5 MG/3 ML NEB SOL NEB SCH ×4 (02:05→19:40)
[2022-02-12] MEDS ORDERED: D50W 25 GM/50 ML SYRINGE IV PRN (05:30)
[2022-02-12] MEDS ORDERED: GLUCAGON 1 MG/VIAL IM PRN (05:30)
[2022-02-12] MEDS ORDERED: DEXTROSE 10%-WATER 500 ML IV ONE (05:34)
[2022-02-12] MEDS ORDERED: D10W 125 ML IV PRN (05:43)
[2022-02-12] MEDS: LEVOTHYROXINE SOD 0.112 MG TAB PO SCH (05:50)
[2022-02-12] MEDS: LEVOTHYROXINE SOD 0.025 MG TAB PO SCH (05:51)
[2022-02-12] MEDS ORDERED: LEVOTHYROXINE SOD 0.125 MG TAB PO SCH (06:00)
[2022-02-12 06:18] LABS: Absolute Lymphocytes (CBC) 1.9 K/uL (0.7-4.9); Hematocrit 30.9 % (36.0-45.0); Lymphocytes % 13.1 % (15.3-44.8); MCV 87.6 fL (80-100); MPV 8.3 fL (7.6-11.3); RBC Red Blood Cell Count 3.53 M/uL (3.86-4.86)
[2022-02-12 06:52] LABS: Potassium 3.7 mmol/L (3.5-5.1)
[2022-02-12 07:56] LABS: Blood Morphology Comment NOT SEEN (NOT SEEN); Platelet Estimate ADEQ; White Blood Cell Scan OK (OK)
[2022-02-12] MEDS ORDERED: carvediloL 6.25 MG TAB PO SCH (08:00)
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
[2022-02-12] MEDS: DULOXETINE 30 MG CAP PO SCH ×2 (09:00→22:00)
[2022-02-12] MEDS ORDERED: GABAPENTIN 100 MG CAP PO SCH (09:00)
[2022-02-12] MEDS: FAMOTIDINE 20 MG/2 ML VIAL IV SCH ×2 (11:14→22:00)
[2022-02-12 11:55] LABS: Specific Gravity 1.015 (1.005-1.030); Urine Bilirubin Negative (Negative); Urine Blood 2+ (Negative); Urine Clarity Slightly Cloudy (Clear); Urine Color Yellow (Yellow); Urine Glucose Negative (Negative); Urine Protein 1+ (Negative); Urine Urobilinogen 0.2 mg/dL (0.2-1.0)
[2022-02-12 12:46] LABS: Urine Bacteria 20-50 /HPF (<20)
[2022-02-12] MEDS ORDERED: Ringers Lactate 500 ML IV ONE (14:00)
--- NOTE | 2022-02-12 15:05 | EKG ---
Test Date: 2022-02-12 Test Time: 10:50:45 Is Manager: ELIDA MEASUREMENT RESULTS: Intervals: Rate: 71 NH: 184 QRSD: 92 QT: 396 QTc: 430 Echo: P: 27 NH: 184 QRS: 14 T: 43 INTERPRETIVE STATEMENTS: Normal sinus rhythm Nonspecific T wave abnormality Abnormal ECG Compared to ECG 02/11/2022 11:49:51 T-wave abnormality now present Ventricular premature complex(es) no longer present Myocardial infarct finding no longer present Electronically Signed On 02-12-22 15:05:17 CDT by Darren Arboleda
--- NOTE | 2022-02-12 15:10 | EKG ---
Test Date: 2022-02-11 Test Time: 11:49:51 Kiln Cleaner: JENNI MEASUREMENT RESULTS: Intervals: Rate: 73 OR: 184 QRSD: 88 QT: 402 QTc: 442 Cruger: P: 58 OR: 184 QRS: 69 T: 43 INTERPRETIVE STATEMENTS: Sinus rhythm with occasional premature ventricular complexes Septal infarct, age undetermined Abnormal ECG Compared to ECG 02/03/2022 17:30:29 Ventricular premature complex(es) now present Myocardial infarct finding still present Electronically Signed On 02-12-22 15:08:22 CDT by Darren Arboleda
[2022-02-12] MEDS: CEFTRIAXONE 1,000 MG in NA CHLORIDE 0.9% 50 ML IVPB SCH (15:18)
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
[2022-02-13] MEDS: ALBUTEROL 2.5 MG/3 ML NEB SOL NEB SCH ×4 (02:00→20:35)
[2022-02-13] MEDS: HYDROCODONE/APAP 5/325 MG TAB PO PRN ×2 (05:08→08:43)
[2022-02-13] MEDS: LEVOTHYROXINE SOD 0.025 MG TAB PO SCH (05:08)
[2022-02-13] MEDS: LEVOTHYROXINE SOD 0.112 MG TAB PO SCH (05:09)
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
[2022-02-13 06:21] LABS: Absolute Lymphocytes (CBC) 1.7 K/uL (0.7-4.9); Hematocrit 32.5 % (36.0-45.0); MCV 86.1 fL (80-100); MPV 9.1 fL (7.6-11.3); RBC Red Blood Cell Count 3.77 M/uL (3.86-4.86)
[2022-02-13 06:41] LABS: Potassium 3.9 mmol/L (3.5-5.1)
[2022-02-13 06:43] LABS: Magnesium 1.4 mg/dL (1.8-2.4)
[2022-02-13] MEDS: Ringers Lactate 1,000 ML IV SCH (07:17)
[2022-02-13] MEDS ORDERED: Magnesium Sulfate 2gm IVPB 2 G/50 ML BAG IV ONE (08:00)
[2022-02-13] MEDS: CEFTRIAXONE 1,000 MG in NA CHLORIDE 0.9% 50 ML IVPB SCH (08:44)
[2022-02-13] MEDS: DULOXETINE 30 MG CAP PO SCH ×2 (08:44→20:53)
[2022-02-13] MEDS: FAMOTIDINE 20 MG/2 ML VIAL IV SCH ×2 (08:44→20:53)
[2022-02-13] MEDS: INSULIN -REGULAR HUMAN 50 UNIT/0.5 ML ML SQ SCH ×5 (08:45→20:54)
[2022-02-13] MEDS: HYDROCODONE/APAP 7.5/325 MG TAB PO PRN ×2 (12:44→17:47)
[2022-02-13] MEDS: METFORMIN HCL 850 MG TAB PO SCH (17:47)
[2022-02-13] MEDS: glipiZIDE 5 MG TAB PO SCH (20:53)
[2022-02-13] MEDS: MELATONIN 5 MG TABLET PO SCH (20:53)
[2022-02-13] MEDS ORDERED: MAGNESIUM SULFATE 1 gm IVPB 1 GM/100 ML BAG IV ONE (21:00)
[2022-02-14] MEDS: ALBUTEROL 2.5 MG/3 ML NEB SOL NEB SCH ×4 (02:00→21:00)
[2022-02-14 04:38] LABS: Hematocrit 29.8 % (36.0-45.0); MCV 84.9 fL (80-100); MPV 8.8 fL (7.6-11.3); RBC Red Blood Cell Count 3.51 M/uL (3.86-4.86)
[2022-02-14 04:43] LABS: Magnesium 1.8 mg/dL (1.8-2.4); Phosphorus 2.2 mg/dL (2.5-4.9); Potassium 3.8 mmol/L (3.5-5.1)
[2022-02-14 05:46] VITALS: BMI 26.6
[2022-02-14] MEDS ORDERED: MAGNESIUM SULFATE 1 gm IVPB 1 GM/100 ML BAG IV ONE (06:00)
[2022-02-14] MEDS: LEVOTHYROXINE SOD 0.112 MG TAB PO SCH (06:03)
[2022-02-14] MEDS: LEVOTHYROXINE SOD 0.025 MG TAB PO SCH (06:03)
[2022-02-14] MEDS: HYDROCODONE/APAP 7.5/325 MG TAB PO PRN ×4 (06:03→21:59)
[2022-02-14] MEDS: CEFTRIAXONE 1,000 MG in NA CHLORIDE 0.9% 50 ML IVPB SCH (08:07)
[2022-02-14] MEDS: glipiZIDE 5 MG TAB PO SCH (08:08)
[2022-02-14] MEDS: METFORMIN HCL 850 MG TAB PO SCH ×2 (08:08→17:26)
[2022-02-14] MEDS: DULOXETINE 30 MG CAP PO SCH ×2 (08:08→22:00)
[2022-02-14] MEDS: FENTANYL 25 MCG/PATCH TD SCH (08:08)
[2022-02-14] MEDS: FAMOTIDINE 20 MG/2 ML VIAL IV SCH ×2 (08:09→22:00)
[2022-02-14] MEDS: INSULIN -REGULAR HUMAN 50 UNIT/0.5 ML ML SQ SCH ×4 (08:10→21:59)
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
[2022-02-14] MEDS: MELATONIN 5 MG TABLET PO SCH (22:00)
[2022-02-14] MEDS ORDERED: ALPRAZOLAM 0.5 MG TABLET PO ONE (22:44)
--- NOTE | 2022-02-15 00:52 | P.PN ---
Date of Service: 02/15/22 Received call from nursing staff reporting that patient was complaining of chest pain. Stat troponin and EKG obtained which revealed no abnormalities. No tachycardia. Nurse also reported that she was breathing rapidly and was evaluated by RT. I ordered her 0.5 xanax. Shortly after received a call that patient was crying that her left leg was hurting. She has been receiving [place] 7.5 and has a fentanyl patch. We are trying to avoid IV pain medicine as patient is to be discharged to SNF soon. Patient was yelling at nursing staff and even called the friction welding machine operator and said no one was helping her. I went and assessed patient. She is tearful and states she is in pain but dozes in and out of sleep during our conversation. Again, no tachycardia. Patient exhibiting drug-seeking behavior and has in the past. I told her we could not give her anymore narcotics until scheduled time for Elberon. Patient refusing tylenol, stating it will not help. I ordered 1x gabapentin.
[2022-02-15] MEDS ORDERED: GABAPENTIN 300 MG CAP PO ONE (00:57)
[2022-02-15] MEDS: HYDROCODONE/APAP 7.5/325 MG TAB PO PRN ×3 (01:52→21:27)
[2022-02-15] MEDS: ALBUTEROL 2.5 MG/3 ML NEB SOL NEB SCH ×4 (02:00→20:00)
[2022-02-15 03:38] LABS: Hematocrit 29.4 % (36.0-45.0); MCV 84.1 fL (80-100)
[2022-02-15 03:42] LABS: Magnesium 1.5 mg/dL (1.8-2.4); Potassium 4.2 mmol/L (3.5-5.1)
[2022-02-15] MEDS: LEVOTHYROXINE SOD 0.025 MG TAB PO SCH (06:23)
[2022-02-15] MEDS: LEVOTHYROXINE SOD 0.112 MG TAB PO SCH (06:23)
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
[2022-02-15] MEDS: DULOXETINE 30 MG CAP PO SCH ×2 (08:30→21:14)
[2022-02-15] MEDS: CEFTRIAXONE 1,000 MG in NA CHLORIDE 0.9% 50 ML IVPB SCH (08:30)
[2022-02-15] MEDS: FAMOTIDINE 20 MG/2 ML VIAL IV SCH ×2 (08:30→21:15)
[2022-02-15] MEDS: METFORMIN HCL 850 MG TAB PO SCH ×2 (08:30→16:12)
[2022-02-15] MEDS: INSULIN -REGULAR HUMAN 50 UNIT/0.5 ML ML SQ SCH ×4 (08:31→21:15)
[2022-02-15] MEDS ORDERED: Magnesium Sulfate 2gm IVPB 2 G/50 ML BAG IV ONE (09:00)
[2022-02-15] MEDS ORDERED: INSULIN GLARGINE 100 UNIT/ML SQ SCH (09:00)
--- NOTE | 2022-02-15 09:12 | RAD REPORT ---
EXAM DESCRIPTION: RAD - Chest Single View - 02/15/2022 9:01 am CLINICAL HISTORY: chest pain, r/o effusion/pneumonia COMPARISON: Portable February 12, CT chest February 11 TECHNIQUE: AP portable chest image was obtained 02/15/2022 9:01 am . FINDINGS: Chronic interstitial pattern is present increased over the February 12 study. No focal consol idations seen. Correlation is needed for any interstitial viral infiltrate clinical findings or inter stitial edema. Heart size is upper normal, accentuated by shallow inspiration. Heart size is not significantly diff erent from comparison. Central pulmonary vasculature not clearly different. Pulmonary arteries remain prominent. No measurable pleural effusion is seen. No pneumothorax is present. No acute bony abnormality seen. No acute aortic findings suspected. IMPRESSION: No measurable pleural effusion has developed since prior imaging. Increased interstitial pattern is noted and could be from viral interstitial infiltrate the or inters titial edema.
--- NOTE | 2022-02-15 13:44 | EKG ---
Test Date: 2022-02-14 Test Time: 23:03:00 Real Estate Lawyer: RT-O MEASUREMENT RESULTS: Intervals: Rate: 91 CA: 150 QRSD: 82 QT: 336 QTc: 413 Stevenson: P: 12 CA: 150 QRS: 1 T: 26 INTERPRETIVE STATEMENTS: Sinus rhythm with occasional premature ventricular complexes Septal infarct, age undetermined Possible Lateral infarct, age undetermined Abnormal ECG Compared to ECG 02/12/2022 10:50:45 Ventricular premature complex(es) now present Myocardial infarct finding now present T-wave abnormality no longer present Electronically Signed On 02-15-22 13:43:10 CDT by Darren Arboleda
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
[2022-02-15] MEDS: MELATONIN 5 MG TABLET PO SCH (21:14)
[2022-02-16] MEDS: ALBUTEROL 2.5 MG/3 ML NEB SOL NEB SCH ×4 (02:00→19:40)
[2022-02-16 03:53] LABS: Hematocrit 28.4 % (36.0-45.0); MCV 84.8 fL (80-100); MPV 8.4 fL (7.6-11.3); RBC Red Blood Cell Count 3.35 M/uL (3.86-4.86)
[2022-02-16 04:04] LABS: Magnesium 1.8 mg/dL (1.8-2.4); Potassium 4.5 mmol/L (3.5-5.1)
[2022-02-16] MEDS: HYDROCODONE/APAP 7.5/325 MG TAB PO PRN ×3 (05:01→20:56)
[2022-02-16] MEDS: LEVOTHYROXINE SOD 0.112 MG TAB PO SCH (05:02)
[2022-02-16] MEDS: LEVOTHYROXINE SOD 0.025 MG TAB PO SCH (05:02)
[2022-02-16] MEDS ORDERED: MAGNESIUM SULFATE 1 gm IVPB 1 GM/100 ML BAG IV ONE (08:00)
[2022-02-16] MEDS: INSULIN -REGULAR HUMAN 50 UNIT/0.5 ML ML SQ SCH ×4 (08:34→20:57)
[2022-02-16] MEDS: INSULIN GLARGINE 100 UNIT/ML SQ SCH (08:34)
[2022-02-16] MEDS: CEFTRIAXONE 1,000 MG in NA CHLORIDE 0.9% 50 ML IVPB SCH (08:34)
[2022-02-16] MEDS: DULOXETINE 30 MG CAP PO SCH ×2 (08:34→20:56)
[2022-02-16] MEDS: FAMOTIDINE 20 MG TAB PO SCH (08:34)
[2022-02-16] MEDS: METFORMIN HCL 850 MG TAB PO SCH ×2 (08:34→16:28)
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
[2022-02-16] MEDS: MELATONIN 5 MG TABLET PO SCH (20:56)
[2022-02-17] MEDS: ALBUTEROL 2.5 MG/3 ML NEB SOL NEB SCH ×4 (01:40→20:35)
[2022-02-17] MEDS: HYDROCODONE/APAP 7.5/325 MG TAB PO PRN ×4 (01:51→22:01)
[2022-02-17 05:57] LABS: Magnesium 1.5 mg/dL (1.8-2.4); Potassium 4.1 mmol/L (3.5-5.1)
[2022-02-17] MEDS ORDERED: Magnesium Sulfate 2gm IVPB 2 G/50 ML BAG IV ONE (06:20)
[2022-02-17] MEDS: LEVOTHYROXINE SOD 0.025 MG TAB PO SCH (06:27)
[2022-02-17] MEDS: LEVOTHYROXINE SOD 0.112 MG TAB PO SCH (06:27)
[2022-02-17] MEDS: INSULIN -REGULAR HUMAN 50 UNIT/0.5 ML ML SQ SCH ×4 (07:30→20:56)
[2022-02-17] MEDS: INSULIN GLARGINE 100 UNIT/ML SQ SCH (09:00)
[2022-02-17] MEDS: FENTANYL 25 MCG/PATCH TD SCH (09:00)
[2022-02-17] MEDS: FAMOTIDINE 20 MG TAB PO SCH (09:15)
[2022-02-17] MEDS: CEFTRIAXONE 1,000 MG in NA CHLORIDE 0.9% 50 ML IVPB SCH (09:15)
[2022-02-17] MEDS: METFORMIN HCL 850 MG TAB PO SCH ×2 (09:17→17:47)
[2022-02-17] MEDS: DULOXETINE 30 MG CAP PO SCH ×2 (09:17→20:56)
[2022-02-17] MEDS: ONDANSETRON 4 MG (ODT) TAB PO PRN (12:14)
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
[2022-02-17] MEDS: KETOROLAC 30 MG/ML INJ IV PRN (17:46)
[2022-02-17] MEDS: MELATONIN 5 MG TABLET PO SCH (20:56)
[2022-02-17] MEDS ORDERED: MAGNESIUM CITRATE 300 ML BOT PO SCH (23:00)
[2022-02-18] MEDS: HEPARIN 5000 UNIT/ML 1 ML VIAL SQ SCH ×2 (01:50→09:01)
[2022-02-18] MEDS: ALBUTEROL 2.5 MG/3 ML NEB SOL NEB SCH ×4 (02:10→19:43)
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
[2022-02-18] MEDS: LEVOTHYROXINE SOD 0.112 MG TAB PO SCH (05:47)
[2022-02-18] MEDS: LEVOTHYROXINE SOD 0.025 MG TAB PO SCH (05:47)
[2022-02-18 07:30] LABS: Magnesium 2.5 mg/dL (1.8-2.4); Potassium 5.2 mmol/L (3.5-5.1)
[2022-02-18] MEDS: FAMOTIDINE 20 MG TAB PO SCH (09:01)
[2022-02-18] MEDS: DULOXETINE 30 MG CAP PO SCH ×2 (09:01→20:21)
[2022-02-18] MEDS: METFORMIN HCL 850 MG TAB PO SCH ×2 (09:01→16:46)
[2022-02-18] MEDS: INSULIN GLARGINE 100 UNIT/ML SQ SCH (09:02)
[2022-02-18] MEDS: INSULIN -REGULAR HUMAN 50 UNIT/0.5 ML ML SQ SCH ×4 (09:02→20:21)
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
[2022-02-18] MEDS: HYDROCODONE/APAP 10/325 TAB PO PRN ×2 (16:26→20:21)
[2022-02-18] MEDS: HOME MED 1 EA UNK (Lovastatin [Altoprev] 40 MG Tab.Er.24h) PO SCH (16:47)
[2022-02-18] MEDS: APIXABAN 5 MG TABLET PO SCH (20:21)
[2022-02-18] MEDS: MELATONIN 5 MG TABLET PO SCH (20:21)
[2022-02-19] MEDS: ALBUTEROL 2.5 MG/3 ML NEB SOL NEB SCH ×4 (02:50→19:40)
[2022-02-19 04:01] LABS: Absolute Lymphocytes (CBC) 1.6 K/uL (0.7-4.9); Hematocrit 26.4 % (36.0-45.0); Lymphocytes % 22.2 % (15.3-44.8); MCV 84.5 fL (80-100); MPV 8.4 fL (7.6-11.3); RBC Red Blood Cell Count 3.12 M/uL (3.86-4.86)
[2022-02-19 04:13] LABS: Potassium 4.9 mmol/L (3.5-5.1)
[2022-02-19] MEDS: LEVOTHYROXINE SOD 0.025 MG TAB PO SCH (05:45)
[2022-02-19] MEDS: LEVOTHYROXINE SOD 0.112 MG TAB PO SCH (05:45)
[2022-02-19] MEDS: INSULIN -REGULAR HUMAN 50 UNIT/0.5 ML ML SQ SCH ×4 (08:06→21:07)
[2022-02-19] MEDS: LOSARTAN/HCTZ 50-12.5 PO SCH (08:07)
[2022-02-19] MEDS: FUROSEMIDE 20 MG TABLET PO SCH (08:07)
[2022-02-19] MEDS: FAMOTIDINE 20 MG TAB PO SCH (08:07)
[2022-02-19] MEDS: INSULIN GLARGINE 100 UNIT/ML SQ SCH (08:07)
[2022-02-19] MEDS: DULOXETINE 30 MG CAP PO SCH ×2 (08:08→21:07)
[2022-02-19] MEDS: APIXABAN 5 MG TABLET PO SCH ×2 (08:08→21:07)
[2022-02-19] MEDS: METFORMIN HCL 850 MG TAB PO SCH ×2 (08:08→17:00)
[2022-02-19] MEDS: HOME MED 1 EA UNK (Empagliflozin [Jardiance] 10 MG Tablet) PO SCH (08:08)
[2022-02-19] MEDS: PANTOPRAZOLE 40MG TABLET PO SCH (08:08)
[2022-02-19] MEDS ORDERED: HOME MED 1 EA UNK (Losartan/Hydrochlorothiazide [Losartan-Hctz 100-25 Mg Tab] 1 EACH Table PO SCH (09:00)
[2022-02-19] MEDS ORDERED: HOME MED 1 EA UNK (Omeprazole [Prilosec] 40 MG Capsule.Dr) PO SCH (09:00)
[2022-02-19] MEDS: HYDROCODONE/APAP 10/325 TAB PO PRN ×2 (09:05→19:56)
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
[2022-02-19] MEDS: HOME MED 1 EA UNK (Lovastatin [Altoprev] 40 MG Tab.Er.24h) PO SCH (16:44)
[2022-02-19] MEDS: MELATONIN 5 MG TABLET PO SCH (21:07)
[2022-02-19] MEDS: KETOROLAC 30 MG/ML INJ IV PRN (22:07)
[2022-02-20] MEDS: ALBUTEROL 2.5 MG/3 ML NEB SOL NEB SCH ×2 (02:25→08:00)
[2022-02-20] MEDS: LEVOTHYROXINE SOD 0.025 MG TAB PO SCH (06:00)
[2022-02-20] MEDS: LEVOTHYROXINE SOD 0.112 MG TAB PO SCH (06:00)
[2022-02-20] MEDS: HYDROCODONE/APAP 10/325 TAB PO PRN (06:31)
[2022-02-20] MEDS: INSULIN -REGULAR HUMAN 50 UNIT/0.5 ML ML SQ SCH ×4 (07:30→20:49)
[2022-02-20] MEDS: LOSARTAN/HCTZ 50-12.5 PO SCH (08:47)
[2022-02-20] MEDS: APIXABAN 5 MG TABLET PO SCH ×2 (08:47→20:48)
[2022-02-20] MEDS: PANTOPRAZOLE 40MG TABLET PO SCH (08:48)
[2022-02-20] MEDS: FAMOTIDINE 20 MG TAB PO SCH (08:48)
[2022-02-20] MEDS: DULOXETINE 30 MG CAP PO SCH ×2 (08:48→20:48)
[2022-02-20] MEDS: FUROSEMIDE 20 MG TABLET PO SCH (08:48)
[2022-02-20] MEDS: HOME MED 1 EA UNK (Empagliflozin [Jardiance] 10 MG Tablet) PO SCH (08:49)
[2022-02-20] MEDS: METFORMIN HCL 850 MG TAB PO SCH ×2 (08:49→17:01)
[2022-02-20] MEDS: INSULIN GLARGINE 100 UNIT/ML SQ SCH (08:50)
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
[2022-02-20] MEDS: KETOROLAC 30 MG/ML INJ IV PRN (14:42)
[2022-02-20] MEDS: HOME MED 1 EA UNK (Lovastatin [Altoprev] 40 MG Tab.Er.24h) PO SCH (16:39)
[2022-02-20] MEDS: MELATONIN 5 MG TABLET PO SCH (20:48)
[2022-02-21] MEDS: BISACODYL E.C. 5 MG TAB PO PRN (00:05)
[2022-02-21] MEDS: HYDROCODONE/APAP 10/325 TAB PO PRN ×2 (00:05→21:18)
[2022-02-21] MEDS: ACETAMINOPHEN 500 MG TAB PO PRN ×2 (04:41→14:39)
[2022-02-21] MEDS: LEVOTHYROXINE SOD 0.112 MG TAB PO SCH (06:06)
[2022-02-21] MEDS: LEVOTHYROXINE SOD 0.025 MG TAB PO SCH (06:06)
[2022-02-21 06:38] LABS: Absolute Lymphocytes (CBC) 1.8 K/uL (0.7-4.9); Hematocrit 31.4 % (36.0-45.0); Lymphocytes % 21.8 % (15.3-44.8); MCV 85.3 fL (80-100); MPV 8.1 fL (7.6-11.3); RBC Red Blood Cell Count 3.68 M/uL (3.86-4.86)
[2022-02-21] MEDS: INSULIN -REGULAR HUMAN 50 UNIT/0.5 ML ML SQ SCH ×4 (07:30→20:52)
[2022-02-21] MEDS: LOSARTAN/HCTZ 50-12.5 PO SCH (08:53)
[2022-02-21] MEDS: DULOXETINE 30 MG CAP PO SCH ×2 (08:54→20:52)
[2022-02-21] MEDS: METFORMIN HCL 850 MG TAB PO SCH ×2 (08:54→17:52)
[2022-02-21] MEDS: APIXABAN 5 MG TABLET PO SCH ×2 (08:54→20:52)
[2022-02-21] MEDS: FUROSEMIDE 20 MG TABLET PO SCH (08:54)
[2022-02-21] MEDS: FAMOTIDINE 20 MG TAB PO SCH (08:54)
[2022-02-21] MEDS: PANTOPRAZOLE 40MG TABLET PO SCH (08:54)
[2022-02-21] MEDS: HOME MED 1 EA UNK (Empagliflozin [Jardiance] 10 MG Tablet) PO SCH (08:55)
[2022-02-21] MEDS: INSULIN GLARGINE 100 UNIT/ML SQ SCH (08:55)
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
[2022-02-21] MEDS: HOME MED 1 EA UNK (Lovastatin [Altoprev] 40 MG Tab.Er.24h) PO SCH (16:39)
[2022-02-21] MEDS: MELATONIN 5 MG TABLET PO SCH (20:52)
[2022-02-21] MEDS: KETOROLAC 30 MG/ML INJ IV PRN (22:14)
[2022-02-22] MEDS: LEVOTHYROXINE SOD 0.112 MG TAB PO SCH (06:00)
[2022-02-22] MEDS: LEVOTHYROXINE SOD 0.025 MG TAB PO SCH (06:00)
[2022-02-22] MEDS: INSULIN -REGULAR HUMAN 50 UNIT/0.5 ML ML SQ SCH ×4 (07:30→20:29)
[2022-02-22] MEDS: HOME MED 1 EA UNK (Empagliflozin [Jardiance] 10 MG Tablet) PO SCH (09:00)
[2022-02-22] MEDS: METFORMIN HCL 850 MG TAB PO SCH ×2 (09:25→16:39)
[2022-02-22] MEDS: LOSARTAN/HCTZ 50-12.5 PO SCH (09:25)
[2022-02-22] MEDS: FUROSEMIDE 20 MG TABLET PO SCH (09:25)
[2022-02-22] MEDS: APIXABAN 5 MG TABLET PO SCH ×2 (09:26→20:29)
[2022-02-22] MEDS: DULOXETINE 30 MG CAP PO SCH ×2 (09:26→20:29)
[2022-02-22] MEDS: PANTOPRAZOLE 40MG TABLET PO SCH (09:26)
[2022-02-22] MEDS: FAMOTIDINE 20 MG TAB PO SCH (09:26)
[2022-02-22] MEDS: INSULIN GLARGINE 100 UNIT/ML SQ SCH (09:27)
[2022-02-22] MEDS: HYDROCODONE/APAP 10/325 TAB PO PRN (12:18)
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
[2022-02-22] MEDS: HOME MED 1 EA UNK (Lovastatin [Altoprev] 40 MG Tab.Er.24h) PO SCH (16:41)
[2022-02-22] MEDS: MELATONIN 5 MG TABLET PO SCH (20:29)
[2022-02-23] MEDS: KETOROLAC 30 MG/ML INJ IV PRN ×3 (01:48→21:28)
[2022-02-23] MEDS: LEVOTHYROXINE SOD 0.112 MG TAB PO SCH (06:25)
[2022-02-23] MEDS: LEVOTHYROXINE SOD 0.025 MG TAB PO SCH (06:26)
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
[2022-02-23] MEDS: INSULIN -REGULAR HUMAN 50 UNIT/0.5 ML ML SQ SCH ×4 (07:30→20:56)
[2022-02-23] MEDS: METFORMIN HCL 850 MG TAB PO SCH ×2 (08:20→17:06)
[2022-02-23] MEDS: INSULIN GLARGINE 100 UNIT/ML SQ SCH (08:20)
[2022-02-23] MEDS: PANTOPRAZOLE 40MG TABLET PO SCH (08:21)
[2022-02-23] MEDS: LOSARTAN/HCTZ 50-12.5 PO SCH (08:21)
[2022-02-23] MEDS: DULOXETINE 30 MG CAP PO SCH ×2 (08:21→20:28)
[2022-02-23] MEDS: APIXABAN 5 MG TABLET PO SCH ×2 (08:22→20:28)
[2022-02-23] MEDS: FUROSEMIDE 20 MG TABLET PO SCH (08:22)
[2022-02-23] MEDS: FAMOTIDINE 20 MG TAB PO SCH (08:22)
--- NOTE | 2022-02-23 08:22 | EKG ---
Test Date: 2022-02-20 Test Time: 15:04:15 Milk Pickup Truck Driver: JOBY MEASUREMENT RESULTS: Intervals: Rate: 74 [place]: 152 QRSD: 86 QT: 400 QTc: 444 [place]: P: 1 KS: 152 QRS: -7 T: 34 INTERPRETIVE STATEMENTS: Normal sinus rhythm Septal infarct, age undetermined Abnormal ECG Compared to ECG 02/20/2022 14:55:28 No significant changes Electronically Signed On 02-23-22 08:12:31 CDT by Jonny Lopez
--- NOTE | 2022-02-23 08:23 | EKG ---
Test Date: 2022-02-20 Test Time: 14:55:28 Ampoule Washing Machine Operator: JOBY MEASUREMENT RESULTS: Intervals: Rate: 75 [place]: 162 QRSD: 86 QT: 388 QTc: 433 [place]: P: 7 [place]: 162 QRS: -1 T: 53 INTERPRETIVE STATEMENTS: Normal sinus rhythm Septal infarct, age undetermined Abnormal ECG Compared to ECG 02/19/2022 20:19:51 Ventricular premature complex(es) no longer present Myocardial infarct finding still present Electronically Signed On 02-23-22 08:12:32 CDT by Jonny Lopez
--- NOTE | 2022-02-23 08:26 | EKG ---
Test Date: 2022-02-19 Test Time: 20:19:51 Crystalizer Operator: 32 MEASUREMENT RESULTS: Intervals: Rate: 84 ME: 154 QRSD: 82 QT: 398 QTc: 470 [place]: P: 9 ME: 154 QRS: 23 T: 57 INTERPRETIVE STATEMENTS: Sinus rhythm with occasional premature ventricular complexes Septal infarct, age undetermined Abnormal ECG Compared to ECG 02/14/2022 23:03:00 No significant changes Electronically Signed On 02-23-22 08:12:55 CDT by Jonny Lopez
[2022-02-23] MEDS: HOME MED 1 EA UNK (Empagliflozin [Jardiance] 10 MG Tablet) PO SCH (08:57)
[2022-02-23] MEDS: HOME MED 1 EA UNK (Lovastatin [Altoprev] 40 MG Tab.Er.24h) PO SCH (16:52)
[2022-02-23] MEDS: HYDROCODONE/APAP 10/325 TAB PO PRN (20:27)
[2022-02-23] MEDS: MELATONIN 5 MG TABLET PO SCH (20:28)
[2022-02-24 04:50] LABS: Potassium 3.5 mmol/L (3.5-5.1)
[2022-02-24 04:53] LABS: Magnesium 1.3 mg/dL (1.8-2.4)
[2022-02-24] MEDS ORDERED: Magnesium Sulfate 2gm IVPB 2 G/50 ML BAG IV ONE (04:54)
[2022-02-24] MEDS: LEVOTHYROXINE SOD 0.112 MG TAB PO SCH (05:28)
[2022-02-24] MEDS: LEVOTHYROXINE SOD 0.025 MG TAB PO SCH (05:28)
[2022-02-24] MEDS: HYDROCODONE/APAP 10/325 TAB PO PRN ×2 (05:29→21:12)
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
[2022-02-24] MEDS: INSULIN -REGULAR HUMAN 50 UNIT/0.5 ML ML SQ SCH ×4 (08:59→20:40)
[2022-02-24] MEDS: METFORMIN HCL 850 MG TAB PO SCH ×2 (08:59→16:09)
[2022-02-24] MEDS: APIXABAN 5 MG TABLET PO SCH ×2 (09:00→19:51)
[2022-02-24] MEDS: LOSARTAN/HCTZ 50-12.5 PO SCH (09:00)
[2022-02-24] MEDS: PANTOPRAZOLE 40MG TABLET PO SCH (09:00)
[2022-02-24] MEDS: FAMOTIDINE 20 MG TAB PO SCH (09:00)
[2022-02-24] MEDS: INSULIN GLARGINE 100 UNIT/ML SQ SCH (09:00)
[2022-02-24] MEDS: HOME MED 1 EA UNK (Empagliflozin [Jardiance] 10 MG Tablet) PO SCH (09:00)
[2022-02-24] MEDS: FUROSEMIDE 20 MG TABLET PO SCH (09:01)
[2022-02-24] MEDS: DULOXETINE 30 MG CAP PO SCH ×2 (09:01→19:51)
[2022-02-24] MEDS: HOME MED 1 EA UNK (Lovastatin [Altoprev] 40 MG Tab.Er.24h) PO SCH (16:09)
[2022-02-24] MEDS: MELATONIN 5 MG TABLET PO SCH (19:51)
[2022-02-24] MEDS: KETOROLAC 30 MG/ML INJ IV PRN (22:53)
[2022-02-25] MEDS: LEVOTHYROXINE SOD 0.025 MG TAB PO SCH (05:45)
[2022-02-25] MEDS: LEVOTHYROXINE SOD 0.112 MG TAB PO SCH (05:45)
[2022-02-25 06:31] LABS: Potassium 4.2 mmol/L (3.5-5.1)
[2022-02-25] MEDS: INSULIN -REGULAR HUMAN 50 UNIT/0.5 ML ML SQ SCH ×4 (07:30→22:00)
[2022-02-25] MEDS: FAMOTIDINE 20 MG TAB PO SCH (08:43)
[2022-02-25] MEDS: DULOXETINE 30 MG CAP PO SCH ×2 (08:43→20:35)
[2022-02-25] MEDS: METFORMIN HCL 850 MG TAB PO SCH ×2 (08:43→16:03)
[2022-02-25] MEDS: APIXABAN 5 MG TABLET PO SCH ×2 (08:43→20:35)
[2022-02-25] MEDS: FUROSEMIDE 20 MG TABLET PO SCH (08:43)
[2022-02-25] MEDS: PANTOPRAZOLE 40MG TABLET PO SCH (08:43)
[2022-02-25] MEDS: HOME MED 1 EA UNK (Empagliflozin [Jardiance] 10 MG Tablet) PO SCH (08:43)
[2022-02-25] MEDS: INSULIN GLARGINE 100 UNIT/ML SQ SCH (08:44)
[2022-02-25] MEDS: LOSARTAN/HCTZ 50-12.5 PO SCH (08:50)
[2022-02-25] MEDS ORDERED: MAGNESIUM SULFATE 1 gm IVPB 1 GM/100 ML BAG IV ONE (09:00)
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
[2022-02-25] MEDS: HOME MED 1 EA UNK (Lovastatin [Altoprev] 40 MG Tab.Er.24h) PO SCH (16:03)
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
[2022-02-25] MEDS: MELATONIN 5 MG TABLET PO SCH (20:35)
[2022-02-25] MEDS: HYDROCODONE/APAP 10/325 TAB PO PRN (21:59)
[2022-02-26] MEDS: KETOROLAC 30 MG/ML INJ IV PRN ×2 (00:07→21:06)
[2022-02-26 05:07] LABS: Magnesium 1.7 mg/dL (1.8-2.4); Potassium 3.9 mmol/L (3.5-5.1)
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
[2022-02-26] MEDS: PANTOPRAZOLE 40MG TABLET PO SCH (06:25)
[2022-02-26] MEDS: LEVOTHYROXINE SOD 0.112 MG TAB PO SCH (06:25)
[2022-02-26] MEDS: LEVOTHYROXINE SOD 0.025 MG TAB PO SCH (06:25)
[2022-02-26] MEDS ORDERED: MAGNESIUM SULFATE 1 gm IVPB 1 GM/100 ML BAG IV ONE (06:30)
[2022-02-26] MEDS: HOME MED 1 EA UNK (Empagliflozin [Jardiance] 10 MG Tablet) PO SCH (09:00)
[2022-02-26] MEDS: INSULIN GLARGINE 100 UNIT/ML SQ SCH (09:30)
[2022-02-26] MEDS: INSULIN -REGULAR HUMAN 50 UNIT/0.5 ML ML SQ SCH ×4 (09:30→20:02)
[2022-02-26] MEDS: METFORMIN HCL 850 MG TAB PO SCH ×2 (09:31→16:53)
[2022-02-26] MEDS: DULOXETINE 30 MG CAP PO SCH ×2 (09:31→19:58)
[2022-02-26] MEDS: FAMOTIDINE 20 MG TAB PO SCH (09:31)
[2022-02-26] MEDS: LOSARTAN/HCTZ 50-12.5 PO SCH (09:31)
[2022-02-26] MEDS: APIXABAN 5 MG TABLET PO SCH ×2 (09:32→19:58)
[2022-02-26] MEDS: FUROSEMIDE 20 MG TABLET PO SCH (09:32)
[2022-02-26] MEDS: HOME MED 1 EA UNK (Lovastatin [Altoprev] 40 MG Tab.Er.24h) PO SCH (16:53)
[2022-02-26] MEDS: MELATONIN 5 MG TABLET PO SCH (19:59)
[2022-02-26] MEDS: HYDROCODONE/APAP 10/325 TAB PO PRN (19:59)
[2022-02-27 04:25] LABS: Magnesium 1.7 mg/dL (1.8-2.4); Potassium 4.1 mmol/L (3.5-5.1)
[2022-02-27] MEDS ORDERED: MAGNESIUM SULFATE 1 gm IVPB 1 GM/100 ML BAG IV ONE (05:00)
[2022-02-27] MEDS: LEVOTHYROXINE SOD 0.112 MG TAB PO SCH (05:47)
[2022-02-27] MEDS: LEVOTHYROXINE SOD 0.025 MG TAB PO SCH (05:47)
[2022-02-27] MEDS: PANTOPRAZOLE 40MG TABLET PO SCH (05:48)
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
[2022-02-27] MEDS: LOSARTAN/HCTZ 50-12.5 PO SCH (08:38)
[2022-02-27] MEDS: FAMOTIDINE 20 MG TAB PO SCH (08:38)
[2022-02-27] MEDS: APIXABAN 5 MG TABLET PO SCH ×2 (08:38→20:38)
[2022-02-27] MEDS: METFORMIN HCL 850 MG TAB PO SCH ×2 (08:38→16:46)
[2022-02-27] MEDS: INSULIN -REGULAR HUMAN 50 UNIT/0.5 ML ML SQ SCH ×4 (08:39→20:39)
[2022-02-27] MEDS: FUROSEMIDE 20 MG TABLET PO SCH (08:39)
[2022-02-27] MEDS: DULOXETINE 30 MG CAP PO SCH ×2 (08:39→20:38)
[2022-02-27] MEDS: INSULIN GLARGINE 100 UNIT/ML SQ SCH (08:40)
[2022-02-27] MEDS: HOME MED 1 EA UNK (Empagliflozin [Jardiance] 10 MG Tablet) PO SCH (08:40)
[2022-02-27] MEDS: HOME MED 1 EA UNK (Lovastatin [Altoprev] 40 MG Tab.Er.24h) PO SCH (16:47)
[2022-02-27] MEDS: HYDROCODONE/APAP 10/325 TAB PO PRN (18:39)
[2022-02-27] MEDS: KETOROLAC 30 MG/ML INJ IV PRN (20:37)
[2022-02-27] MEDS: MELATONIN 5 MG TABLET PO SCH (20:38)
[2022-02-28 04:48] LABS: Magnesium 1.9 mg/dL (1.8-2.4); Potassium 3.9 mmol/L (3.5-5.1)
[2022-02-28] MEDS: LEVOTHYROXINE SOD 0.025 MG TAB PO SCH (05:41)
[2022-02-28] MEDS: LEVOTHYROXINE SOD 0.112 MG TAB PO SCH (05:41)
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
[2022-02-28] MEDS: INSULIN -REGULAR HUMAN 50 UNIT/0.5 ML ML SQ SCH ×4 (07:30→20:40)
[2022-02-28] MEDS: LOSARTAN/HCTZ 50-12.5 PO SCH (08:55)
[2022-02-28] MEDS: ACETAMINOPHEN 500 MG TAB PO PRN ×2 (08:56→23:44)
[2022-02-28] MEDS: APIXABAN 5 MG TABLET PO SCH ×2 (08:56→20:37)
[2022-02-28] MEDS: DULOXETINE 30 MG CAP PO SCH ×2 (08:56→20:37)
[2022-02-28] MEDS: PANTOPRAZOLE 40MG TABLET PO SCH (08:56)
[2022-02-28] MEDS: FUROSEMIDE 20 MG TABLET PO SCH (08:56)
[2022-02-28] MEDS: FAMOTIDINE 20 MG TAB PO SCH (08:56)
[2022-02-28] MEDS: METFORMIN HCL 850 MG TAB PO SCH ×2 (08:57→16:42)
[2022-02-28] MEDS: HOME MED 1 EA UNK (Empagliflozin [Jardiance] 10 MG Tablet) PO SCH (08:57)
[2022-02-28] MEDS: INSULIN GLARGINE 100 UNIT/ML SQ SCH (08:58)
[2022-02-28] MEDS: HOME MED 1 EA UNK (Lovastatin [Altoprev] 40 MG Tab.Er.24h) PO SCH (16:43)
[2022-02-28] MEDS: HYDROCODONE/APAP 10/325 TAB PO PRN (20:37)
[2022-02-28] MEDS: MELATONIN 5 MG TABLET PO SCH (21:10)
[2022-03-01] MEDS: LEVOTHYROXINE SOD 0.112 MG TAB PO SCH (05:45)
[2022-03-01] MEDS: LEVOTHYROXINE SOD 0.025 MG TAB PO SCH (05:45)
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
[2022-03-01] MEDS: INSULIN -REGULAR HUMAN 50 UNIT/0.5 ML ML SQ SCH ×4 (07:30→21:00)
[2022-03-01] MEDS: DULOXETINE 30 MG CAP PO SCH ×2 (08:13→22:54)
[2022-03-01] MEDS: APIXABAN 5 MG TABLET PO SCH ×2 (08:13→22:54)
[2022-03-01] MEDS: METFORMIN HCL 850 MG TAB PO SCH ×2 (08:13→17:07)
[2022-03-01] MEDS: FUROSEMIDE 20 MG TABLET PO SCH (08:13)
[2022-03-01] MEDS: FAMOTIDINE 20 MG TAB PO SCH (08:14)
[2022-03-01] MEDS: HOME MED 1 EA UNK (Empagliflozin [Jardiance] 10 MG Tablet) PO SCH (08:14)
[2022-03-01] MEDS: LOSARTAN/HCTZ 50-12.5 PO SCH (08:14)
[2022-03-01] MEDS: PANTOPRAZOLE 40MG TABLET PO SCH (08:14)
[2022-03-01] MEDS: INSULIN GLARGINE 100 UNIT/ML SQ SCH (08:15)
[2022-03-01] MEDS: HOME MED 1 EA UNK (Lovastatin [Altoprev] 40 MG Tab.Er.24h) PO SCH (17:00)
[2022-03-01] MEDS: MELATONIN 5 MG TABLET PO SCH (22:54)
[2022-03-02] MEDS: LEVOTHYROXINE SOD 0.025 MG TAB PO SCH (06:33)
[2022-03-02] MEDS: PANTOPRAZOLE 40MG TABLET PO SCH (06:33)
[2022-03-02] MEDS: LEVOTHYROXINE SOD 0.112 MG TAB PO SCH (06:33)
[2022-03-02] MEDS: DULOXETINE 30 MG CAP PO SCH ×2 (08:42→21:13)
[2022-03-02] MEDS: LOSARTAN/HCTZ 50-12.5 PO SCH (08:42)
[2022-03-02] MEDS: FAMOTIDINE 20 MG TAB PO SCH (08:42)
[2022-03-02] MEDS: FUROSEMIDE 20 MG TABLET PO SCH (08:44)
[2022-03-02] MEDS: METFORMIN HCL 850 MG TAB PO SCH ×2 (08:44→16:31)
[2022-03-02] MEDS: HOME MED 1 EA UNK (Empagliflozin [Jardiance] 10 MG Tablet) PO SCH (08:45)
[2022-03-02] MEDS: INSULIN -REGULAR HUMAN 50 UNIT/0.5 ML ML SQ SCH ×4 (08:45→21:00)
[2022-03-02] MEDS: APIXABAN 5 MG TABLET PO SCH ×2 (08:45→21:00)
[2022-03-02] MEDS: INSULIN GLARGINE 100 UNIT/ML SQ SCH (08:46)
--- NOTE | 2022-03-02 13:17 | RAD REPORT ---
EXAM DESCRIPTION: RAD - Ankle Left 2 View - 03/02/2022 1:05 pm CLINICAL HISTORY: pain COMPARISON: Ankle Left 2 View dated 02/17/2022 FINDINGS: Plaster splint material is in place. The bones are osteopenic. Trimalleolar fracture is no viktoria. Mild callus formation is seen. Large plantar calcaneal spur.
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
[2022-03-02] MEDS: HOME MED 1 EA UNK (Lovastatin [Altoprev] 40 MG Tab.Er.24h) PO SCH (16:22)
[2022-03-02] MEDS: ACETAMINOPHEN 500 MG TAB PO PRN (16:34)
[2022-03-02 21:07] LABS: Hematocrit 28.9 % (36.0-45.0); Lymphocytes % 21.3 % (15.3-44.8); MCV 85.5 fL (80-100); MPV 7.8 fL (7.6-11.3); RBC Red Blood Cell Count 3.38 M/uL (3.86-4.86)
[2022-03-02] MEDS: MELATONIN 5 MG TABLET PO SCH (21:13)
[2022-03-02 21:55] LABS: Potassium 3.8 mmol/L (3.5-5.1)
--- NOTE | 2022-03-02 22:16 | RAD REPORT ---
EXAM DESCRIPTION: RAD - Chest Single View - 03/02/2022 9:57 pm CLINICAL HISTORY: preop Chest pain. COMPARISON: Chest Single View dated 02/15/2022; Chest Single View dated 02/12/2022; Chest Single View da viktoria 02/05/2022; Chest Single View dated 02/03/2022 FINDINGS: Portable technique limits examination quality. Mild interstitial pulmonary edema. The heart is mildly enlarged in size. No displaced fractures. IMPRESSION: Mild CHF.
[2022-03-02] MEDS: HYDROCODONE/APAP 10/325 TAB PO PRN (22:27)
[2022-03-03 03:56] LABS: Protime INR 0.94
[2022-03-03] MEDS: LEVOTHYROXINE SOD 0.112 MG TAB PO SCH (06:24)
[2022-03-03] MEDS: LEVOTHYROXINE SOD 0.025 MG TAB PO SCH (06:25)
[2022-03-03] MEDS: INSULIN -REGULAR HUMAN 50 UNIT/0.5 ML ML SQ SCH ×4 (07:30→21:13)
[2022-03-03] MEDS: PANTOPRAZOLE 40MG TABLET PO SCH (07:30)
[2022-03-03] MEDS: METFORMIN HCL 850 MG TAB PO SCH ×2 (08:00→18:03)
[2022-03-03] MEDS: FAMOTIDINE 20 MG TAB PO SCH (09:00)
[2022-03-03] MEDS: LOSARTAN/HCTZ 50-12.5 PO SCH (09:00)
[2022-03-03] MEDS: DULOXETINE 30 MG CAP PO SCH ×2 (09:00→20:11)
[2022-03-03] MEDS: FUROSEMIDE 20 MG TABLET PO SCH (09:00)
[2022-03-03] MEDS: HOME MED 1 EA UNK (Empagliflozin [Jardiance] 10 MG Tablet) PO SCH (09:00)
[2022-03-03] MEDS: INSULIN GLARGINE 100 UNIT/ML SQ SCH (09:00)
[2022-03-03] MEDS ORDERED: dexAMETHasone 10 MG/ML VIAL ONE (09:34)
[2022-03-03] MEDS ORDERED: BUPIVACAINE 0.25% PF 10 ML VIAL ONE (09:34)
[2022-03-03] MEDS ORDERED: MIDAZOLAM HCL 2 MG/2 ML INJ ONE (09:35)
[2022-03-03] MEDS ORDERED: FENTANYL CITR 100 MCG/2 ML ONE (09:35)
[2022-03-03] MEDS ORDERED: EPINEPHRINE/PF 1 MG/ML AMP ONE (09:35)
[2022-03-03] MEDS ORDERED: NA CHLORIDE 0.9% 1,000 ML ONE ×2 (09:42→11:15)
[2022-03-03] MEDS ORDERED: LIDOCAINE 1% MPF 5 ML VIAL ONE (09:43)
[2022-03-03] MEDS ORDERED: LIDOCAINE 2% MPF 5 ML VIAL ONE (10:44)
[2022-03-03] MEDS ORDERED: NEOSTIGMINE 1 MG/ML -10 ML VIAL ONE (10:58)
[2022-03-03] MEDS ORDERED: Phenylephrine HCl 10 MG/ML 1 ML VIAL ONE (10:59)
[2022-03-03] MEDS ORDERED: CEFAZOLIN SODIUM 1 GM/VIAL ONE (11:02)
[2022-03-03] MEDS ORDERED: ONDANSETRON 4 MG/2 ML VIAL ONE ×2 (11:09→12:50)
[2022-03-03] MEDS ORDERED: dexAMETHasone 4 MG/ML VIAL ONE (11:09)
--- NOTE | 2022-03-03 12:14 | P.BOP ---
Preoperative diagnosis: left trimalleolar ankle fracture Postoperative diagnosis: same Primary procedure: ORIF left lateral malleolus Mica Miner Blasting: NONE,NONE Estimated blood loss: 5 cc Specimen: none Findings: see dictation Anesthesia: General Complications: None Implants: 4 hole Acumed distal fibula locking plate Fluids & blood products: per anesthesia record; TT: 51 mins @ 300 mmHg Transferred to: Recovery Room Condition: Good
[2022-03-03] MEDS ORDERED: TRAMADOL HCL 50 MG TAB PO PRN (12:24)
[2022-03-03] MEDS ORDERED: propofoL 200 MG/20 ML VIAL IV ONE (12:31)
--- NOTE | 2022-03-03 12:41 | RAD REPORT ---
EXAM DESCRIPTION: RAD - Ankle Left 2 View - 03/03/2022 12:20 pm FINDINGS: There were 5 portable C-arm views submitted from fluoroscopic assisted placement of fractu re fixation hardware. Fluoro time was 0.3 minutes. Cumulative dose was 0.364 mGy.
[2022-03-03] MEDS: HYDROMORPHONE HCL 1 MG/ML INJ ONE ×2 (12:43→12:51)
[2022-03-03 12:51] LABS: Hematocrit 30.5 % (36.0-45.0)
--- NOTE | 2022-03-03 13:06 | RAD REPORT ---
EXAM DESCRIPTION: RAD - Ankle Left 2 View - 03/03/2022 12:53 pm CLINICAL HISTORY: postop COMPARISON: Ankle Left 2 View dated 03/03/2022 FINDINGS/IMPRESSION: Surgical changes from fibular plate and screw fixation. No evidence of immediat e hardware complications. No new fractures
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
[2022-03-03] MEDS: HYDROCODONE/APAP 10/325 TAB PO PRN ×2 (16:55→20:10)
[2022-03-03] MEDS: HOME MED 1 EA UNK (Lovastatin [Altoprev] 40 MG Tab.Er.24h) PO SCH (17:00)
[2022-03-03] MEDS: MELATONIN 5 MG TABLET PO SCH (20:11)
[2022-03-03] MEDS: CEFAZOLIN 1 GM in NA CHLORIDE 0.9% 50 ML IVPB SCH (20:11)
[2022-03-03] MEDS ORDERED: D50W 25 GM/50 ML SYRINGE IV PRN (22:51)
[2022-03-03] MEDS ORDERED: INSULIN -REGULAR HUMAN 50 UNIT/0.5 ML ML SQ ONE (23:07)
[2022-03-04] MEDS: CEFAZOLIN 1 GM in NA CHLORIDE 0.9% 50 ML IVPB SCH ×2 (03:39→12:56)
[2022-03-04 03:48] LABS: Absolute Lymphocytes (CBC) 1.3 K/uL (0.7-4.9); Hematocrit 26.1 % (36.0-45.0); Lymphocytes % 13.7 % (15.3-44.8); MCV 86.1 fL (80-100); MPV 8.5 fL (7.6-11.3); RBC Red Blood Cell Count 3.03 M/uL (3.86-4.86)
[2022-03-04] MEDS: LEVOTHYROXINE SOD 0.112 MG TAB PO SCH (05:37)
[2022-03-04] MEDS: LEVOTHYROXINE SOD 0.025 MG TAB PO SCH (05:37)
[2022-03-04] MEDS: INSULIN -REGULAR HUMAN 50 UNIT/0.5 ML ML SQ SCH ×4 (07:30→21:00)
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
[2022-03-04] MEDS: INSULIN GLARGINE 100 UNIT/ML SQ SCH (09:00)
[2022-03-04] MEDS: HOME MED 1 EA UNK (Empagliflozin [Jardiance] 10 MG Tablet) PO SCH (09:00)
[2022-03-04] MEDS: PANTOPRAZOLE 40MG TABLET PO SCH (10:29)
[2022-03-04] MEDS: LOSARTAN/HCTZ 50-12.5 PO SCH (10:30)
[2022-03-04] MEDS: FAMOTIDINE 20 MG TAB PO SCH (10:30)
[2022-03-04] MEDS: DULOXETINE 30 MG CAP PO SCH ×2 (10:30→21:08)
[2022-03-04] MEDS: METFORMIN HCL 850 MG TAB PO SCH ×2 (10:31→17:30)
[2022-03-04] MEDS: FUROSEMIDE 20 MG TABLET PO SCH (10:32)
[2022-03-04] MEDS: APIXABAN 5 MG TABLET PO SCH ×2 (10:32→21:08)
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
[2022-03-04] MEDS: HYDROCODONE/APAP 10/325 TAB PO PRN (16:08)
[2022-03-04] MEDS: HOME MED 1 EA UNK (Lovastatin [Altoprev] 40 MG Tab.Er.24h) PO SCH (17:00)
[2022-03-04] MEDS: MELATONIN 5 MG TABLET PO SCH (21:09)
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
[2022-03-04] MEDS ORDERED: INSULIN -REGULAR HUMAN 50 UNIT/0.5 ML ML SQ ONE (22:53)
[2022-03-05] MEDS: HYDROCODONE/APAP 10/325 TAB PO PRN ×4 (00:21→23:15)
[2022-03-05] MEDS: LEVOTHYROXINE SOD 0.112 MG TAB PO SCH (05:40)
[2022-03-05] MEDS: LEVOTHYROXINE SOD 0.025 MG TAB PO SCH (05:40)
[2022-03-05 06:10] LABS: Hematocrit 27.4 % (36.0-45.0)
[2022-03-05] MEDS: INSULIN -REGULAR HUMAN 50 UNIT/0.5 ML ML SQ SCH ×4 (08:26→20:19)
[2022-03-05] MEDS: FAMOTIDINE 20 MG TAB PO SCH (08:29)
[2022-03-05] MEDS: DULOXETINE 30 MG CAP PO SCH ×2 (08:29→20:19)
[2022-03-05] MEDS: BISACODYL E.C. 5 MG TAB PO PRN (08:29)
[2022-03-05] MEDS: APIXABAN 5 MG TABLET PO SCH ×2 (08:29→20:19)
[2022-03-05] MEDS: FUROSEMIDE 20 MG TABLET PO SCH (08:29)
[2022-03-05] MEDS: PANTOPRAZOLE 40MG TABLET PO SCH (08:29)
[2022-03-05] MEDS: HOME MED 1 EA UNK (Empagliflozin [Jardiance] 10 MG Tablet) PO SCH (08:30)
[2022-03-05] MEDS: LOSARTAN/HCTZ 50-12.5 PO SCH (08:30)
[2022-03-05] MEDS: INSULIN GLARGINE 100 UNIT/ML SQ SCH (08:46)
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
[2022-03-05] MEDS: METFORMIN HCL 850 MG TAB PO SCH ×2 (13:22→17:18)
[2022-03-05] MEDS: HOME MED 1 EA UNK (Lovastatin [Altoprev] 40 MG Tab.Er.24h) PO SCH (16:42)
[2022-03-05] MEDS: MELATONIN 5 MG TABLET PO SCH (20:19)
[2022-03-06 05:45] LABS: Hematocrit 27.9 % (36.0-45.0)
[2022-03-06] MEDS: LEVOTHYROXINE SOD 0.025 MG TAB PO SCH (05:53)
[2022-03-06] MEDS: LEVOTHYROXINE SOD 0.112 MG TAB PO SCH (05:53)
[2022-03-06] MEDS: HOME MED 1 EA UNK (Empagliflozin [Jardiance] 10 MG Tablet) PO SCH (09:00)
[2022-03-06] MEDS: INSULIN -REGULAR HUMAN 50 UNIT/0.5 ML ML SQ SCH ×4 (09:53→21:00)
[2022-03-06] MEDS: INSULIN GLARGINE 100 UNIT/ML SQ SCH (09:54)
[2022-03-06] MEDS: METFORMIN HCL 850 MG TAB PO SCH ×2 (09:55→17:31)
[2022-03-06] MEDS: FAMOTIDINE 20 MG TAB PO SCH (09:55)
[2022-03-06] MEDS: PANTOPRAZOLE 40MG TABLET PO SCH (09:55)
[2022-03-06] MEDS: APIXABAN 5 MG TABLET PO SCH ×2 (09:55→21:20)
[2022-03-06] MEDS: LOSARTAN/HCTZ 50-12.5 PO SCH (09:55)
[2022-03-06] MEDS: DULOXETINE 30 MG CAP PO SCH ×2 (09:55→21:20)
[2022-03-06] MEDS: BISACODYL E.C. 5 MG TAB PO PRN (09:56)
[2022-03-06] MEDS: FUROSEMIDE 20 MG TABLET PO SCH (09:56)
[2022-03-06] MEDS: TRAMADOL HCL 50 MG TAB PO PRN ×2 (11:57→17:31)
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
[2022-03-06] MEDS: HOME MED 1 EA UNK (Lovastatin [Altoprev] 40 MG Tab.Er.24h) PO SCH (17:00)
[2022-03-06] MEDS: HYDROCODONE/APAP 7.5/325 MG TAB PO PRN (21:19)
[2022-03-06] MEDS: MELATONIN 5 MG TABLET PO SCH (21:20)
[2022-03-07 04:32] LABS: Hematocrit 30.8 % (36.0-45.0); Lymphocytes % 26.6 % (15.3-44.8); RBC Red Blood Cell Count 3.63 M/uL (3.86-4.86)
[2022-03-07 04:51] LABS: Potassium 3.8 mmol/L (3.5-5.1)
[2022-03-07] MEDS: LEVOTHYROXINE SOD 0.112 MG TAB PO SCH (06:40)
[2022-03-07] MEDS: LEVOTHYROXINE SOD 0.025 MG TAB PO SCH (06:40)
[2022-03-07] MEDS: INSULIN -REGULAR HUMAN 50 UNIT/0.5 ML ML SQ SCH ×4 (07:30→21:00)
[2022-03-07] MEDS: METFORMIN HCL 850 MG TAB PO SCH ×2 (08:00→17:22)
[2022-03-07] MEDS: HOME MED 1 EA UNK (Empagliflozin [Jardiance] 10 MG Tablet) PO SCH (09:00)
[2022-03-07] MEDS ORDERED: POTASSIUM CL SA 10 MEQ TAB PO ONE (09:00)
[2022-03-07] MEDS: FUROSEMIDE 20 MG TABLET PO SCH (09:14)
[2022-03-07] MEDS: APIXABAN 5 MG TABLET PO SCH ×2 (09:15→22:05)
[2022-03-07] MEDS: BISACODYL E.C. 5 MG TAB PO PRN (09:15)
[2022-03-07] MEDS: LOSARTAN/HCTZ 50-12.5 PO SCH (09:15)
[2022-03-07] MEDS: FAMOTIDINE 20 MG TAB PO SCH (09:15)
[2022-03-07] MEDS: PANTOPRAZOLE 40MG TABLET PO SCH (09:15)
[2022-03-07] MEDS: DULOXETINE 30 MG CAP PO SCH ×2 (09:15→22:05)
[2022-03-07] MEDS: INSULIN GLARGINE 100 UNIT/ML SQ SCH (09:16)
[2022-03-07] MEDS: TRAMADOL HCL 50 MG TAB PO PRN (11:33)
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
[2022-03-07] MEDS: HOME MED 1 EA UNK (Lovastatin [Altoprev] 40 MG Tab.Er.24h) PO SCH (17:00)
[2022-03-07] MEDS: HYDROCODONE/APAP 7.5/325 MG TAB PO PRN ×2 (17:29→22:05)
[2022-03-07] MEDS: MELATONIN 5 MG TABLET PO SCH (22:05)
[2022-03-08] MEDS: LEVOTHYROXINE SOD 0.025 MG TAB PO SCH (05:33)
[2022-03-08] MEDS: LEVOTHYROXINE SOD 0.112 MG TAB PO SCH (05:33)
[2022-03-08] MEDS: INSULIN -REGULAR HUMAN 50 UNIT/0.5 ML ML SQ SCH ×4 (07:30→21:00)
[2022-03-08] MEDS: HOME MED 1 EA UNK (Empagliflozin [Jardiance] 10 MG Tablet) PO SCH (09:00)
[2022-03-08] MEDS: LOSARTAN/HCTZ 50-12.5 PO SCH (09:03)
[2022-03-08] MEDS: FUROSEMIDE 20 MG TABLET PO SCH (09:03)
[2022-03-08] MEDS: FAMOTIDINE 20 MG TAB PO SCH (09:03)
[2022-03-08] MEDS: PANTOPRAZOLE 40MG TABLET PO SCH (09:03)
[2022-03-08] MEDS: INSULIN GLARGINE 100 UNIT/ML SQ SCH (09:04)
[2022-03-08] MEDS: APIXABAN 5 MG TABLET PO SCH ×2 (09:04→21:14)
[2022-03-08] MEDS: DULOXETINE 30 MG CAP PO SCH ×2 (09:04→21:14)
[2022-03-08] MEDS: METFORMIN HCL 850 MG TAB PO SCH ×2 (10:13→16:10)
[2022-03-08] MEDS: HYDROCODONE/APAP 7.5/325 MG TAB PO PRN (12:52)
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
[2022-03-08] MEDS: HOME MED 1 EA UNK (Lovastatin [Altoprev] 40 MG Tab.Er.24h) PO SCH (16:11)
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
[2022-03-08] MEDS: MELATONIN 5 MG TABLET PO SCH (21:14)
[2022-03-09] MEDS: HYDROCODONE/APAP 7.5/325 MG TAB PO PRN ×4 (02:12→22:56)
[2022-03-09] MEDS: TRAMADOL HCL 50 MG TAB PO PRN (03:53)
[2022-03-09] MEDS: LEVOTHYROXINE SOD 0.112 MG TAB PO SCH (05:58)
[2022-03-09] MEDS: LEVOTHYROXINE SOD 0.025 MG TAB PO SCH (05:59)
[2022-03-09] MEDS: INSULIN -REGULAR HUMAN 50 UNIT/0.5 ML ML SQ SCH ×4 (07:30→20:15)
[2022-03-09] MEDS: LOSARTAN/HCTZ 50-12.5 PO SCH (08:54)
[2022-03-09] MEDS: INSULIN GLARGINE 100 UNIT/ML SQ SCH (08:54)
[2022-03-09] MEDS: DULOXETINE 30 MG CAP PO SCH ×2 (08:55→20:15)
[2022-03-09] MEDS: METFORMIN HCL 850 MG TAB PO SCH ×2 (08:55→16:17)
[2022-03-09] MEDS: APIXABAN 5 MG TABLET PO SCH ×2 (08:55→20:15)
[2022-03-09] MEDS: FUROSEMIDE 20 MG TABLET PO SCH (08:55)
[2022-03-09] MEDS: FAMOTIDINE 20 MG TAB PO SCH (08:55)
[2022-03-09] MEDS: PANTOPRAZOLE 40MG TABLET PO SCH (08:56)
[2022-03-09] MEDS: HOME MED 1 EA UNK (Empagliflozin [Jardiance] 10 MG Tablet) PO SCH (08:56)
[2022-03-09] MEDS: HOME MED 1 EA UNK (Lovastatin [Altoprev] 40 MG Tab.Er.24h) PO SCH (16:17)
[2022-03-09] MEDS: ACETAMINOPHEN 500 MG TAB PO PRN (20:14)
[2022-03-09] MEDS: MELATONIN 5 MG TABLET PO SCH (20:15)
[2022-03-09] MEDS: ONDANSETRON 4 MG (ODT) TAB PO PRN (22:57)
[2022-03-10] MEDS: LEVOTHYROXINE SOD 0.112 MG TAB PO SCH (05:42)
[2022-03-10] MEDS: LEVOTHYROXINE SOD 0.025 MG TAB PO SCH (05:42)
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
[2022-03-10] MEDS: PANTOPRAZOLE 40MG TABLET PO SCH (08:57)
[2022-03-10] MEDS: FAMOTIDINE 20 MG TAB PO SCH (08:57)
[2022-03-10] MEDS: APIXABAN 5 MG TABLET PO SCH ×2 (08:57→20:44)
[2022-03-10] MEDS: DULOXETINE 30 MG CAP PO SCH ×2 (08:57→20:43)
[2022-03-10] MEDS: FUROSEMIDE 20 MG TABLET PO SCH (08:57)
[2022-03-10] MEDS: METFORMIN HCL 850 MG TAB PO SCH ×2 (08:57→16:51)
[2022-03-10] MEDS: LOSARTAN/HCTZ 50-12.5 PO SCH (08:57)
[2022-03-10] MEDS: HOME MED 1 EA UNK (Empagliflozin [Jardiance] 10 MG Tablet) PO SCH (08:58)
[2022-03-10] MEDS: INSULIN GLARGINE 100 UNIT/ML SQ SCH (08:59)
[2022-03-10] MEDS: INSULIN -REGULAR HUMAN 50 UNIT/0.5 ML ML SQ SCH ×4 (08:59→20:44)
[2022-03-10] MEDS: HYDROCODONE/APAP 7.5/325 MG TAB PO PRN ×2 (14:15→20:44)
[2022-03-10] MEDS: HOME MED 1 EA UNK (Lovastatin [Altoprev] 40 MG Tab.Er.24h) PO SCH (16:52)
[2022-03-10] MEDS: MELATONIN 5 MG TABLET PO SCH (20:44)
[2022-03-11] MEDS: LEVOTHYROXINE SOD 0.112 MG TAB PO SCH (05:30)
[2022-03-11] MEDS: LEVOTHYROXINE SOD 0.025 MG TAB PO SCH (05:30)
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
[2022-03-11] MEDS: INSULIN -REGULAR HUMAN 50 UNIT/0.5 ML ML SQ SCH ×4 (07:30→21:05)
[2022-03-11] MEDS: FUROSEMIDE 20 MG TABLET PO SCH (08:17)
[2022-03-11] MEDS: DULOXETINE 30 MG CAP PO SCH ×2 (08:17→21:05)
[2022-03-11] MEDS: METFORMIN HCL 850 MG TAB PO SCH ×2 (08:17→17:34)
[2022-03-11] MEDS: PANTOPRAZOLE 40MG TABLET PO SCH (08:18)
[2022-03-11] MEDS: APIXABAN 5 MG TABLET PO SCH ×2 (08:18→21:04)
[2022-03-11] MEDS: INSULIN GLARGINE 100 UNIT/ML SQ SCH (08:18)
[2022-03-11] MEDS: FAMOTIDINE 20 MG TAB PO SCH (08:18)
[2022-03-11] MEDS: HOME MED 1 EA UNK (Empagliflozin [Jardiance] 10 MG Tablet) PO SCH (08:19)
[2022-03-11] MEDS: LOSARTAN/HCTZ 50-12.5 PO SCH (08:19)
[2022-03-11] MEDS: HOME MED 1 EA UNK (Lovastatin [Altoprev] 40 MG Tab.Er.24h) PO SCH (16:19)
[2022-03-11] MEDS: HYDROCODONE/APAP 5/325 MG TAB PO PRN (21:04)
[2022-03-11] MEDS: MELATONIN 5 MG TABLET PO SCH (21:04)
[2022-03-11] MEDS: ONDANSETRON 4 MG (ODT) TAB PO PRN (22:35)
[2022-03-11] MEDS: ACETAMINOPHEN 500 MG TAB PO PRN (22:36)
[2022-03-11 22:48] VITALS: O2SAT 96
[2022-03-12] MEDS: ACETAMINOPHEN 500 MG TAB PO PRN (02:49)
[2022-03-12] MEDS: LEVOTHYROXINE SOD 0.112 MG TAB PO SCH (05:58)
[2022-03-12] MEDS: LEVOTHYROXINE SOD 0.025 MG TAB PO SCH (05:58)
[2022-03-12] MEDS: INSULIN -REGULAR HUMAN 50 UNIT/0.5 ML ML SQ SCH ×3 (07:30→16:28)
[2022-03-12] MEDS: HOME MED 1 EA UNK (Empagliflozin [Jardiance] 10 MG Tablet) PO SCH (08:24)
[2022-03-12] MEDS: LOSARTAN/HCTZ 50-12.5 PO SCH (08:33)
[2022-03-12] MEDS: METFORMIN HCL 850 MG TAB PO SCH ×2 (08:33→16:27)
[2022-03-12] MEDS: FAMOTIDINE 20 MG TAB PO SCH (08:34)
[2022-03-12] MEDS: FUROSEMIDE 20 MG TABLET PO SCH (08:34)
[2022-03-12] MEDS: DULOXETINE 30 MG CAP PO SCH ×2 (08:34→20:52)
[2022-03-12] MEDS: PANTOPRAZOLE 40MG TABLET PO SCH (08:34)
[2022-03-12] MEDS: APIXABAN 5 MG TABLET PO SCH ×2 (08:35→20:52)
[2022-03-12] MEDS: INSULIN GLARGINE 100 UNIT/ML SQ SCH (08:36)
[2022-03-12] MEDS: HYDROCODONE/APAP 5/325 MG TAB PO PRN ×2 (09:06→20:51)
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
[2022-03-12] MEDS: HOME MED 1 EA UNK (Lovastatin [Altoprev] 40 MG Tab.Er.24h) PO SCH (16:13)
[2022-03-12] MEDS: MELATONIN 5 MG TABLET PO SCH (20:52)
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
[2022-03-12] MEDS ORDERED: HYDROCODONE/APAP 5/325 MG TAB PO ONE (22:50)
[2022-03-13 00:45] VITALS: BP 121/64; TEMP 97.8
[2022-03-13] MEDS ORDERED: DOCUSATE NA 100 MG CAP PO SCH (09:00)
== END 2022-03-13 02:50 | DRG 493 ==
LOC: ER 10:51 → ERHOLD 14:48 → INTOOBSV 14:48 → 2ND 20:03 → OBSVTOIN 02-12 16:29 → 4TH 02-14 16:49 → 2ND 02-25 16:50 → 4TH 03-01 10:49
PROVIDERS: ADMIT Surgery; ATTEND Hospitalist
PROC: 0QSK04Z Reposition Left Fibula with Internal Fixation Device, Open Approach (ICD-10-PCS; principal; 2022-03-03 10:30)
DX: S82.852A Displaced trimalleolar fracture of left lower leg, initial encounter for closed fracture (principal); S22.42XA Multiple fractures of ribs, left side, initial encounter for closed fracture; N17.9 Acute kidney failure, unspecified; N30.00 Acute cystitis without hematuria; I12.9 Hypertensive chronic kidney disease with stage 1 through stage 4 chronic kidney disease, or unspecified chronic kidney disease; N18.2 Chronic kidney disease, stage 2 (mild); E11.22 Type 2 diabetes mellitus with diabetic chronic kidney disease; E11.65 Type 2 diabetes mellitus with hyperglycemia; E11.649 Type 2 diabetes mellitus with hypoglycemia without coma; E11.40 Type 2 diabetes mellitus with diabetic neuropathy, unspecified; I48.91 Unspecified atrial fibrillation; E03.9 Hypothyroidism, unspecified; K21.9 Gastro-esophageal reflux disease without esophagitis; I25.10 Atherosclerotic heart disease of native coronary artery without angina pectoris; I25.2 Old myocardial infarction; B96.20 Unspecified Escherichia coli [E. coli] as the cause of diseases classified elsewhere; V43.52XA Car driver injured in collision with other type car in traffic accident, initial encounter; Z66 Do not resuscitate; Z60.2 Problems related to living alone; Z79.84 Long term (current) use of oral hypoglycemic drugs; Z79.01 Long term (current) use of anticoagulants; Z79.899 Other long term (current) drug therapy; Z79.890 Hormone replacement therapy; Z20.822 Contact with and (suspected) exposure to COVID-19
CPT/HCPCS: 36415; 70450; 71045; 71250; 71275; 72125; 80048; 80061; 81001; 82947; 83735; 84100; 84484; 85014; 85018; 85025; 85027; 85610; 85730; 86850; 86900; 86901; 87077; 87086; 87088; 87186; 87811; 93005; 94010; 94640; 96372; 97110; 97112; 97116; 97161; 97530; 97542; 99285; G0378; J0171; J0690; J1100; J1170; J1644; J1815; J2001; J2250; J2270; J2370; J2405; J2704; J2710; J3010; J3475; J7030; J7120; Q0162; Q9967; U0003

== ENCOUNTER 2024-10-24 10:50 | Inpatient (IN) | payer OTHER ==
--- OUTSIDE RECORDS SUMMARY | 2024-10-24 15:17 | XMS REPORT | Continuity of Care Document ---
Author Name Unknown Address [address] [facility] [address] [place] [address] [facility] [place] Address [address] [facility] [address] [place] [address] Care Team Providers Care Director Of Academic Support Name Role Phone SHAUN VELASQUEZ Primary Care Physician Unavailab DWAYNE Beard Attending Clinician Unavailable DWAYNE LÓPEZ Attending Clinician Unavailable Shaun Velasquez Attending Clinician Unavailable [id number] Attending Clinician Unavailable GERALDO JAMES Attending Clinician Unavailable Mariella Anders MD Attending Clinician [phone] Ricky Scherer MD Attending Clinician Maye Prather MD Attending Clinician [phone] Juanito Enriquez DO Attending Clinician [phone] Cassius MA, Emiliano Attending Clinician [phone] YAMIL DIAMOND Attending Clinician Unavailab Chelsey MA, Yamil Branham Attending Clinician [phone] Jacob MA, Geraldo Attending Clinician [phone], [facility] Attending Clinician Unavailable KALINA VALADEZ Attending Clinician Unavailable KALINA VALADEZ Attending Clinician Unavailable Allyson MA, Kalina Branham Attending Clinician [phone] Aditya MA, Josie Attending Clinician + ENRIQUE PUGH Attending Clinician Unav ailENRIQUE Melgar Attending Clinician Unav Enrique Hernández MD Attending Clinician + GLYNN GATES Attending Clinician Unavailable GLYNN GATES Attending Clinician Unavailable Yajaira MA, Glynn Lara Attending Clinician [phone] MICHELE VERMA Attending Clinician Unavailable Luci MA, Michele Attending Clinician [phone] Aleyda Chapman RN Attending Clinician UnaHAZEL Coburn Attending Clinician Unavailable Elliot MARADIAGA, Lynette Herron Attending Clinician [phone] Hazel Wells DO Attending Clinician [phone] LORIE MOSCOSO Attending Clinician Unavailable Lorie Moscoso PA-C Attending Clinician [phone] ROSALVA GIBBONS Attending Clinician Unavailable Shaun Velasquez Attending Clinician [phone] Trevor ELLSWORTH, Gurjit Eli Attending Clinician Unavail radha Del Castillo MD, Alli Attending Clinician [phone] Latoya MA, Angela Harris Attending Clinician [phone] Hazel Wells DO Attending Clinician [phone] Edwardo MA, Josselin Mejia Attending Clinician + [phone] KNOW, DOES_NOT Attending Clinician Unavailable REID SPICER Attending Clinician Unavaila ble Clarita ACNP, Reid Attending Clinician +- [phone] Bailey Husain Attending Clinician [phone] Bruno ELLSWORTH, Sandra Garg Attending Clinician Unavail able FANNIE DANG Attending Clinician Unavailable RoxyLadarius Garnica Attending Clinician [phone] Fannie Dang MD Attending Clinician [phone] Doctor Unassigned, [place] Attending Clinician U krisailable Soumya Gonzalez DO Attending Clinician [phone] SOUMYA GONZALEZ Attending Clinician Unavailab JAVI Nunez Attending Clinician Unavailable Murtaza Persaud Attending Clinician Unavailable MAYE PRATHER Admitting Clinician Unavaila ble [id number] Admitting Clinician Unavailable YAMIL DIAMOND Admitting Clinician Unavailab Yamil Barbosa MD Admitting Clinician [phone] KALINA VALADEZ Admitting Clinician Unavailable ENRIQUE PUGH Admitting Clinician Unav ailable GLYNN GATES Admitting Clinician Unavailable HAZEL WELLS Admitting Clinician Unavailable Hazel Wells DO Admitting Clinician [phone] LORIE MOSCOSO Admitting Clinician Unavailable ROSALVA GIBBONS Admitting Clinician Unavailable ANGELA OKEEFE Admitting Clinician UnavailAngela Karimi MD Admitting Clinician [phone] GLYNN GATES Admitting Clinician Unavailable FANNIE DANG Admitting Clinician Unavailable Fannie Dang MD Admitting Clinician [phone] Physician, No Primary or Family Admitting Clinic sepideh Unavailable Payers Payer Name Policy Type Policy Number Effective Date Expirati on Date Source MEDICARE PART A \\T\\ [id number] 2007 00:00:00 [facility] + PLUS [id number] 2024 00:00:00 ELBA ARREOLA [id number] [facility] [id number] 2021 00:00:00 2024 00:00:00 WINTER BAILEY [id number] 2023 00:00:00 2024 00:00:00 HUMANA C1 [id number] 2021 00:00:00 [facility] HUMANA C1 [id number] 2021 00:00:00 [facility] HUMANA C1 [id number] 2021 00:00:00 [facility] HUMANA C1 [id number] 2021 00:00:00 [facility] HUMANA C1 [id number] 2021 00:00:00 [facility] HUMANA C1 [id number] 2021 00:00:00 [facility] HUMANA C1 [id number] [facility] Problems Condition Name Condition Details Condition Category Status Onset Date Resolution Date Last Treatment Date Treating Clinician Comments Source Closed pertrochan teric fracture of femur, left, initial encounter Closed pertrochan teric fracture of femur, left, initial encounter Disease Active 10-19 00:00: 00 [facility] Closed pertrochan teric fracture of left femur, initial encounter Closed pertrochan teric fracture of left femur, initial encounter Disease Active 10-18 00:00: 00 [facility] Mural thrombus of heart Mural thrombus of heart Disease Active 2023-07 00:00: 00 [facility] PAF (paroxysma l atrial fibrillati on) PAF (paroxysma l atrial fibrillati on) Disease Active 2023-07 00:00: 00 [facility] Chest pain, unspecifie d type Chest pain, unspecifie d type Disease Active 2022-07 00:00: 00 [facility] COVID-19 virus infection COVID-19 virus infection Disease Active 2022-07 00:00: 00 [facility] Nonobstruc tive atheroscle rosis of coronary artery Nonobstruc tive atheroscle rosis of coronary artery Disease Active 07-29 00:00: 00 [facility] Atypical chest pain Atypical chest pain Disease Active 07-29 00:00: 00 [facility] Diabetic renal disease Diabetic renal disease Disease Active 07-29 00:00: 00 [facility] CAD (coronary artery disease) CAD (coronary artery disease) Disease Active 07-29 00:00: 00 [facility] Chronic systolic heart failure Chronic systolic heart failure Disease Active 2020-07 00:00: 00 [facility] Hypertensi ve heart and chronic kidney disease with heart failure and stage 1 through stage 4 chronic kidney disease, or unspecifie d chronic kidney disease Hypertensi ve heart and chronic kidney disease with heart failure and stage 1 through stage 4 chronic kidney disease, or unspecifie d chronic kidney disease Disease Active 2020-07 00:00: 00 [facility] 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 Disease Active 2020-07 00:00: 00 [facility] No known active problems No known active problems Disease [facility] [id number] Current moderate episode of major depressive disorder without prior episode Problem [facility] [id number] Coronary artery disease involving [place] coronary artery of [place] heart with other form of angina pectoris Problem [facility] [id number] Peripheral polyneurop athy Problem [facility] [id number] Postablati ve hypothyroi dism Problem [facility] [id number] History of Graves' disease Problem [facility] [id number] GERD without esophagiti s Problem [facility] [id number] ERIC (obstructi ve sleep apnea) Problem [facility] [id number] Type 2 diabetes mellitus with hyperglyce filomena, without long-term current use of insulin Problem [facility] Heart failure Congestive heart failure, NYHA class 4, unspecifie d congestive heart failure type Problem [facility] [id number] Gout of multiple sites, unspecifie d cause, unspecifie d chronicity Problem [facility] [id number] Primary insomnia Problem [facility] [id number] NESTOR (generaliz ed anxiety disorder) Problem [facility] [id number] Mixed hyperlipid emia Problem [facility] [id number] Essential (primary) hypertensi on Problem [facility] [id number] Anticoagul ant long-term use Problem [facility] [id number] Type 2 diabetes mellitus with diabetic chronic kidney disease Problem [facility] [id number] Left ventricula r mural thrombus Problem [facility] [id number] Chronic kidney disease, stage 3 unspecifie d Problem [facility] [id number] 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 [facility] No Known Allergie s DA Active U 2019-07 00:00: 00 [facility] No Known Allergie s DA Active U 2019-07 00:00: 00 [facility] NO KNOWN ALLERGIE S Drug Class Active [facility] Social History Social Habit Start Date Stop Date Quantity Comments Source ASSERTION Not [facility] Gender identity [facility] Sexual orientation U [facility] History SDOH Social Connections Get Together [facility] History SDOH Social Connections Yazidism [facility] History SDOH Social Connections Membership [facility] History SDOH Social Connections Meetings [facility] History SDOH Food Scarcity [facility] History of Tobacco Use [facility] Alcoholic beverage intake 2024-10-22 00:00:00 2024-10-22 00:00:00 Ex-drinker (finding) [facility] Tobacco use and exposure 2024-07-17 00:00:00 2024-07-17 00:00:00 Smokeless tobacco non-user [facility] History of Social function 2024-07-17 00:00:00 2024-07-17 00:00:00 [facility] Alcohol intake 2023-06-15 00:00:00 2023-06-15 00:00:00 Ex-drinker (finding) [facility] History SDOH Alcohol Frequency 2022-07-29 00:00:00 2022-07-29 00:00:00 1 [facility] History SDOH Alcohol Std Drinks 2022-07-29 00:00:00 2022-07-29 00:00:00 0 [facility] History SDOH Alcohol Binge 2022-07-29 00:00:00 2022-07-29 00:00:00 1 [facility] History SDOH Social Connections Phone 2022-07-29 00:00:00 2022-07-29 00:00:00 5 [facility] History SDOH Social Connections Living 2022-07-29 00:00:00 2022-07-29 00:00:00 4 [facility] History SDOH Physical Activity DPW 2022-07-29 00:00:00 2022-07-29 00:00:00 3 [facility] History SDOH Physical Activity MPS 2022-07-29 00:00:00 2022-07-29 00:00:00 2 [facility] History SDOH Financial 2022-07-29 00:00:00 2022-07-29 00:00:00 5 [facility] History SDOH Food Worry 2022-07-29 00:00:00 2022-07-29 00:00:00 1 [facility] History SDOH Transport Med 2022-07-29 00:00:00 2022-07-29 00:00:00 2 [facility] History SDOH Transport Non-Med 2022-07-29 00:00:00 2022-07-29 00:00:00 2 [facility] Exposure to SARS-CoV-2 (event) 2022-07-18 00:00:00 2022-07-28 22:16:00 Not sure [facility] Sex assigned at 1950 00:00:00 1950 00:00:00 [facility] Smoking Status Start Date Stop Date Source Never smoked tobacco [facility] Medications Ordered Medication Name Filled Medication Name Start Date Stop Date Current Medication? Ordering Clinician Indication Dosage Frequency Signature (SIG) Comments Components Source spironolact one (ALDACTONE) tablet 25 mg spironolact one (ALDACTONE) tablet 25 mg 10-22 20:45: 00 Yes 25mg 25 mg, Oral, DAILY, First dose on Tue10/22/24 at 1545, Until Discontinu ed, Routine [facility] oxyCODONE immediate release tablet 5 mg 10-22 19:28: 54 Yes 5mg 5 mg, Oral, Q6HPRN, Starting on Tue10/22/24 at 1428, Until Discontinu ed, Routine, Pain (scale 7-10), retail team member approving Restricted medication : YOKASTA BYRNE [facility] insulin lispro (human) (HumaLOG U-100) injection 3 Units insulin lispro (human) (HumaLOG U-100) injection 3 Units 10-22 16:30: 00 Yes 3U 3 Units, Subcutaneo us, TIDAC, First dose on Tue10/22/24 at 1130, Until Discontinu ed, Routine [facility] furosemide (LASIX) tablet 20 mg furosemide (LASIX) tablet 20 mg 10-22 16:15: 00 Yes 20mg 20 mg, Oral, DAILY, First dose on Tue10/22/24 at 1115, Until Discontinu ed, Routine [facility] traMADoL (ULTRAM) tablet 50 mg traMADoL (ULTRAM) tablet 50 mg 10-22 16:15: 00 Yes 50mg 50 mg, Oral, BID, First dose on Tue10/22/24 at 1115, Until Discontinu ed, Routine [facility] polyethylen e glycol 3350 powder 17 g polyethylen e glycol 3350 powder 17 g 10-22 14:00: 00 Yes 17g 17 g, Oral, DAILY, First dose (after last modificati on) on Tue10/22/24 at 0900, Until Discontinu ed, Routine [facility] acetaminoph en (TYLENOL) tablet 650 mg acetaminoph en (TYLENOL) tablet 650 mg 10-21 17:00: 00 Yes 650mg 650 mg, Oral, QID, First dose (after last modificati on) on Tue10/21/24 at 1200, Until Discontinu ed, Routine [facility] Sliding Scale Insulin-Reg ular [id number] 0512-0 4-12 21:30: 00 Yes Subcutaneo us, AC+HS, First dose (after last modificati on) on 10/20/24 at 1630, Until Discontinu ed, Routine [facility] insulin glargine (LANTUS U-100) injection 10 Units insulin glargine (LANTUS U-100) injection 10 Units 10-20 19:36: 00 10-27 12:59 :00 Yes 10U 10 Units, Subcutaneo us, BID, 14 doses, First dose on Tue10/20/24 at 1445, Last dose on Tue10/26/24 at 2000, Routine [facility] atorvastati n (LIPITOR) tablet 20 mg [id number] 4-12 02:00: 00 Yes 20mg 20 mg, Oral, QHS, First dose on Tue10/19/24 at 2100, Until Discontinu ed, Routine [facility] melatonin (MELATIN) tablet 3 mg melatonin (MELATIN) tablet 3 mg 10-20 02:00: 00 Yes 3mg 3 mg, Oral, QHS, First dose on Tue10/19/24 at 2100, Until Discontinu ed, Routine [facility] divalproex (DEPAKOTE) delayed release tablet 250 mg divalproex (DEPAKOTE) delayed release tablet 250 mg 10-20 01:00: 00 Yes 250mg 250 mg, Oral, BID, First dose on Tue10/19/24 at 2000, Until Discontinu ed, Routine [facility] ondansetron (ZOFRAN (PF)) injection 10-19 19:22: 00 10-19 20:00 :33 No Slow IV Push, ONCE INTRA PROCEDURE, Starting on Tue10/19/24 at 1422, Until Tue10/19/24 at 1500, Administer over 2-5 Minutes, Intra-op [facility] sugammadex (BRIDION) injection 10-19 19:20: 00 10-19 20:00 :33 No IV Push, ONCE INTRA PROCEDURE, Starting on Tue10/19/24 at 1420, Until Tue10/19/24 at 1500, Routine, Intra-op [facility] albumin (ALBUTEIN 5 %) 5 % injection 10-19 18:43: 00 10-19 20:00 :33 No IV Infusion, CONTINUOUS PRN, Starting on Tue10/19/24 at 1343, Until Tue10/19/24 at 1500, Intra-op [facility] acetaminoph en (OFIRMEV) IV piggyback 10-19 18:24: 00 10-19 20:00 :33 No IV Infusion, Administer over 15 Minutes, ONCE INTRA PROCEDURE, Starting on Tue10/19/24 at 1324, Until Tue10/19/24 at 1500, Routine, Intra-op [facility] dexamethaso ne (DECADRON PHOSPHATE) 4 mg/mL injection 10-19 18:15: 00 10-19 20:00 :33 No IV Push, ONCE INTRA PROCEDURE, Starting on Tue10/19/24 at 1315, Until Tue10/19/24 at 1500, Routine, Intra-op [facility] NORepinephr ine (LEVOPHED) 4 mg in NaCl 0.9% (NS) 250 mL infusion 10-19 18:08: 00 10-19 20:00 :33 No IV Infusion, CONTINUOUS PRN, Starting on Tue10/19/24 at 1308, Intra-op [facility] ceFAZolin (ANCEF) injection 10-19 18:04: 00 10-19 20:00 :33 No Slow IV Push, ONCE INTRA PROCEDURE, Starting on Tue10/19/24 at 1304, Until Tue10/19/24 at 1500, SPIKE, Intra-op [facility] propofoL IV infusion 10-19 17:51: 00 10-19 20:00 :33 No IV Infusion, ONCE INTRA PROCEDURE, Starting on Tue10/19/24 at 1251, Intra-op [facility] FENTanyl (PF) (SUBLIMAZE) injection 10-19 17:50: 00 10-19 20:00 :33 No Epidural, ONCE INTRA PROCEDURE, Starting on Tue10/19/24 at 1250, Until Tue10/19/24 at 1500, Routine, Intra-op [facility] rocuronium (ZEMURON) injection 10-19 17:47: 00 10-19 20:00 :33 No IV Push, ONCE INTRA PROCEDURE, Starting on Tue10/19/24 at 1247, Until Tue10/19/24 at 1500, Routine, Intra-op [facility] lidocaine 1% (XYLOCAINE) 100 mg/10 mL (1 %) injection 10-19 17:44: 00 10-19 20:00 :33 No Slow IV Push, ONCE INTRA PROCEDURE, Starting on Tue10/19/24 at 1244, Until Tue10/19/24 at 1500, Routine, Intra-op [facility] lactated ringers IV infusion 10-19 17:33: 00 10-19 20:00 :33 No IV Infusion, CONTINUOUS PRN, Starting on Tue10/19/24 at 1233, Until Tue10/19/24 at 1500, Routine, Intra-op [facility] dexamethaso ne (DECADRON PHOSPHATE) 4 mg/mL injection 10-19 16:47: 00 10-22 14:50 :33 No Infiltrati on, ONCE INTRA PROCEDURE, Starting on Tue10/19/24 at 1147, Until Tue10/22/24 at 0950, Routine, [facility] dexmedeTOMI Dine (PRECEDEX) injection 10-19 16:47: 00 10-22 14:50 :33 No Intravenou s, ONCE INTRA PROCEDURE, Starting on Tue10/19/24 at 1147, Until Tue10/22/24 at 0950, Routine, Intra-op [facility] bupivacaine (preserv free) (SENSORCAIN E MPF) 0.25 % (2.5 mg/mL) injection 10-19 16:47: 00 10-22 14:50 :33 No Infiltrati on, ONCE INTRA PROCEDURE, Starting on Tue10/19/24 at 1147, Until Tue10/22/24 at 0950, Routine, [facility] methocarbam oL (ROBAXIN) tablet 500 mg methocarbam oL (ROBAXIN) tablet 500 mg 10-19 14:15: 00 Yes 500mg 500 mg, Oral, QIDPRN, Starting on Tue10/19/24 at 0915, Until Discontinu ed, Routine, Muscle Spasms [facility] DULoxetine (CYMBALTA) capsule 30 mg DULoxetine (CYMBALTA) capsule 30 mg 10-19 14:00: 00 Yes 30mg 30 mg, Oral, DAILY, First dose on Tue10/19/24 at 0900, Until Discontinu ed, Routine [facility] pantoprazol e (PROTONIX) EC tablet 40 mg pantoprazol e (PROTONIX) EC tablet 40 mg 10-19 14:00: 00 Yes 40mg 40 mg, Oral, DAILY, First dose on Tue10/19/24 at 0900, Until Discontinu ed, Routine [facility] sennosides- docusate sodium (SENOKOT-S) 8.6-50 mg per tablet 1 tablet sennosides- docusate sodium (SENOKOT-S) 8.6-50 mg per tablet 1 tablet 10-19 13:00: 00 Yes 1{tbl} 1 tablet, Oral, BID, First dose on Tue10/19/24 at 0800, Until Discontinu ed, [facility] gabapentin (NEURONTIN) capsule 300 mg gabapentin (NEURONTIN) capsule 300 mg 10-19 13:00: 00 Yes 300mg 300 mg, Oral, TID, First dose on Tue10/19/24 at 0800, Until Discontinu ed, Routine [facility] enoxaparin (LOVENOX) injection 30 mg enoxaparin (LOVENOX) injection 30 mg 10-19 13:00: 00 Yes 30mg 30 mg, Subcutaneo us, Q12H, First dose on Tue10/19/24 at 0800, Until Discontinu ed, Routine [facility] carvediloL (COREG) tablet 6.25 mg carvediloL (COREG) tablet 6.25 mg 10-19 13:00: 00 Yes 6.25mg 6.25 mg, Oral, BID MEALS, First dose on Tue10/19/24 at 0800, Until Discontinu ed, Routine [facility] levothyroxi ne (SYNTHROID) tablet 137 mcg levothyroxi ne (SYNTHROID) tablet 137 mcg 10-19 11:00: 00 Yes 137ug 137 mcg, Oral, QAM-0600, First dose on Tue10/19/24 at 0600, Until Discontinu ed, Routine [facility] bisacodyL (DULCOLAX) suppository 10 mg 10-19 10:46: 48 Yes 10mg [facility] ondansetron (ZOFRAN-ODT ) disintegrat ing tablet 4 mg ondansetron (ZOFRAN-ODT ) disintegrat ing tablet 4 mg 10-19 10:46: 48 Yes 4mg 4 mg, Oral, Q6HPRN, Starting on Tue10/19/24 at 0546, Until Discontinu ed, Routine, Nausea and Vomiting (N/V) [facility] glucagon HCL injection 1 mg 10-19 02:45: 56 Yes 1mg 1 mg, Intramuscu lar, PRN, Starting on Tue10/18/24 at 2145, Until Discontinu ed, SPIKE, Low blood sugar, Blood Glucose < or = 70 mg/dL and patient is NPO, unable to swallow or has mental changes. [facility] dextrose 50 % in water (D50W) injection 25 mL 10-19 02:45: 56 Yes 25mL 25 mL, Slow IV Push, PRN, Starting on Tayla 10/18/24 at 2145, Until Discontinu ed, SPIKE, Blood Glucose < or = 70 mg/dL and patient is NPO, unable to swallow or has mental status changes. [facility] lactated ringers IV infusion 1,000 mL 10-01 13:00: 00 10-01 16:02 :15 No 1000mL at 75 mL/hr, 1,000 mL, IV Infusion, CONTINUOUS , Starting on Tue10/01/24 at 0800, Until Tue10/01/24 at 1102, Routine, PACU [facility] FENTanyl (PF) (SUBLIMAZE) injection 25 mcg 10-01 12:52: 49 10-01 16:02 :15 No 25ug 25 mcg, Slow IV Push, Q5MIN PRN, 4 doses, Starting on Tue10/01/24 at 0752, Until Tue10/01/24 at 1102, Routine, Pain Scale 4-6, PACU [facility] iohexoL (OMNIPAQUE 300-50 mL)) injection 10-01 12:42: 00 10-01 16:02 :15 No PRN, Starting on Tue10/01/24 at 0742, Until Tue10/01/24 at 1102, Routine, Intra-op [facility] triamcinolo ne acetonide (KENALOG) injection 10-01 12:42: 00 10-01 16:02 :15 No PRN, Starting on Tue10/01/24 at 0742, Until Tue10/01/24 at 1102, Routine, Intra-op [facility] bupivacaine (preserv free) (SENSORCAIN E MPF) 0.25 % (2.5 mg/mL) injection 10-01 12:42: 00 10-01 16:02 :15 No PRN, Starting on Tue10/01/24 at 0742, Until Tue10/01/24 at 1102, Routine, Intra-op [facility] lidocaine 1% (XYLOCAINE) 10 mg/mL (1 %) injection 10-01 12:41: 00 10-01 16:02 :15 No PRN, Starting on Tue10/01/24 at 0741, Until Tue10/01/24 at 1102, Routine, Intra-op [facility] NaCl 0.9% (NS) injection 09-10 13:31: 00 09-10 16:34 :44 No PRN, Starting on Tue09/10/24 at 0731, Until Tue09/10/24 at 1034, Routine, Intra-op [facility] triamcinolo ne acetonide (KENALOG) injection 09-10 13:31: 00 09-10 16:34 :44 No PRN, Starting on Tue09/10/24 at 0731, Until Tue09/10/24 at 1034, Routine, Intra-op [facility] iohexoL (OMNIPAQUE 300-50 mL)) injection 09-10 13:30: 00 09-10 16:34 :44 No PRN, Starting on Tue09/10/24 at 0730, Until Tue09/10/24 at 1034, Routine, Intra-op [facility] lidocaine 1% (XYLOCAINE) 10 mg/mL (1 %) injection 09-10 13:28: 00 09-10 16:34 :44 No PRN, Starting on Tue09/10/24 at 0728, Until Tue09/10/24 at 1034, Routine, Intra-op [facility] bupivacaine (preserv free) (SENSORCAIN E MPF) 0.25 % (2.5 mg/mL) injection 09-10 13:28: 00 09-10 16:34 :44 No PRN, Starting on Tue09/10/24 at 0728, Until Tue09/10/24 at 1034, Routine, Intra-op [facility] FENTanyl (PF) (SUBLIMAZE) injection 25 mcg 08-13 13:39: 57 08-13 16:59 :14 No 25ug 25 mcg, Slow IV Push, Q5MIN PRN, 4 doses, Starting on Tue08/13/24 at 0739, Until Tue08/13/24 at 1059, Routine, Pain Scale 4-6, PACU [facility] ondansetron (ZOFRAN (PF)) injection 4 mg 08-13 13:39: 57 08-13 16:59 :14 No 4mg 4 mg, Slow IV Push, PRN, 1 dose, Starting on Tue08/13/24 at 0739, Until Tue08/13/24 at 1059, Administer over 2-5 Minutes, 2 mL, [facility] triamcinolo [facility] acetonide (KENALOG) injection 08-13 13:35: 00 08-13 16:59 :14 No PRN, Starting on Tue08/13/24 at 0735, Until Tue08/13/24 at 1059, Routine, Intra-op [facility] iohexoL (OMNIPAQUE 300-50 mL)) injection 08-13 13:35: 00 08-13 16:59 :14 No PRN, Starting on Tue08/13/24 at 0735, Until Tue08/13/24 at 1059, Routine, Intra-op [facility] bupivacaine (preserv free) (SENSORCAIN E MPF) 0.25 % (2.5 mg/mL) injection 08-13 13:35: 00 08-13 16:59 :14 No PRN, Starting on Tue08/13/24 at 0735, Until Tue08/13/24 at 1059, Routine, [facility] lidocaine 1% (XYLOCAINE) 10 mg/mL (1 %) injection 08-13 13:33: 00 08-13 16:59 :14 No PRN, Starting on Tue08/13/24 at 0733, Until Tue08/13/24 at 1059, Routine, Intra-op [facility] lactulose 10 gram/15 mL oral solution 2-03 08:59: 11 Yes 30mL Take 30 mL by mouth 2 (two) times daily as needed for Constipati on. [facility] fentanyl PF (SUBLIMAZE (PF)) injection 50 mcg 07-18 09:00: 00 07-18 08:48 :00 No 50ug 50 mcg, Intramuscu lar, ONCE, 1 dose, On Tue07/18/24 at 0300, STAT [facility] fentanyl PF (SUBLIMAZE (PF)) injection 50 mcg 07-18 05:15: 00 07-18 05:15 :00 No 50ug 50 mcg, Intramuscu lar, ONCE, 1 dose, On Tue07/17/24 at 2315, STAT [facility] spironolact one 25 mg tablet 07-17 00:00: 00 Yes [id number] 25mg Take 1 tablet by mouth in the morning. [facility] melatonin (MELATIN) tablet 4.5 mg 2023-07 02:00: 00 Yes 5mg [facility] atorvastati n (LIPITOR) tablet 10 mg 2023-07 02:00: 00 Yes 10mg [facility] divalproex (DEPAKOTE) delayed release tablet 250 mg 2023-07 02:00: 00 Yes 250mg [facility] allopurinoL 100 mg tablet 2023-07 17:48: 14 Yes 100mg Take 1 tablet by mouth in the morning. [facility] docusate 100 mg capsule 2023-07 17:48: 14 Yes 100mg Take 1 capsule by mouth in the morning and 1 capsule in the evening. [facility] divalproex (DEPAKOTE) 250 mg delayed release tablet 2023-07 17:48: 14 Yes 250mg Take 1 tablet by mouth every morning. And 500 mg q pm [facility] divalproex ER (DEPAKOTE ER) 500 mg 24 hr tablet 2023-07 17:48: 14 Yes 1000mg Take 2 tablets by mouth at bedtime. [facility] HYDROcodone -acetaminop hen 7.5-325 mg per tablet 2023-07 17:48: 14 Yes 1{tbl} Take 1 tablet by mouth every 8 (eight) hours as needed for Pain. [facility] ipratropium -albuteroL 0.5 mg-3 mg(2.5 mg base)/3 mL nebulizer solution 2023-07 17:48: 14 Yes 3mL 3 mL every 6 (six) hours as needed for Wheezing or Shortness of Breath. [facility] lactulose 10 gram/15 mL oral solution 2023-07 17:48: 14 Yes 30mL Take 30 mL by mouth 2 (two) times daily as needed for Constipati on. [facility] loratadine 10 mg Chew 2023-07 17:48: 14 Yes 10mg Take 10 mg by mouth as needed for Other (Allergy). [facility] Loperamide HCl 2 mg Tab tablet 2023-07 17:48: 14 Yes 2mg Take 1 tablet by mouth every 4 (four) hours as needed for Other (diarrhea) . [facility] ondansetron 4 mg tablet 2023-07 17:48: 14 Yes 4mg Take 1 tablet by mouth every 8 (eight) hours as needed for Nausea and Vomiting (N/V). [facility] Sliding Scale Insulin - Lispro (HumaLOG) 2023-07 17:00: 00 Yes Subcutaneo us, TID MEALS+HS, First dose on Tue05/02/24 at 1200, Until Discontinu ed, Routine [facility] glucagon HCL injection 1 mg 2023-07 16:37: 22 Yes 1mg 1 mg, Intramuscu lar, PRN, Starting on Tue05/02/24 at 1137, Until Discontinu ed, SPIKE, Low blood sugar, Blood Glucose < or = 70 mg/dL and patient is NPO, unable to swallow or has mental changes. [facility] dextrose 50 % in water (D50W) injection 25 mL 2023-07 16:37: 22 Yes 25mL 25 mL, Slow IV Push, PRN, Starting on Tue05/02/24 at 1137, Until Discontinu ed, SPIKE, Blood Glucose < or = 70 mg/dL and patient is NPO, unable to swallow or has mental status changes. [facility] sulfur hexafluorid e microsphr (LUMASON) injection 5 mL 2023-07 14:15: 00 05-02 14:15 :00 No [id number] 5mL 5 mL, Intravenou s, ONCE, 1 dose, On Tue05/02/24 at 0915, Routine [facility] pantoprazol e (PROTONIX) EC tablet 40 mg 2023-07 14:00: 00 Yes 40mg 40 mg, Oral, DAILY, First dose on Tue05/02/24 at 0900, Until Discontinu ed [facility] lisinopriL (PRINIVIL,Z ESTRIL) tablet 2.5 mg 2023-07 14:00: 00 Yes 2.5mg 2.5 mg, Oral, DAILY, First dose on Tue05/02/24 at 0900, Until Discontinu ed, Routine [facility] furosemide (LASIX) tablet 20 mg 2023-07 14:00: 00 Yes 20mg 20 mg, Oral, DAILY, First dose on Tue05/02/24 at 0900, Until Discontinu ed, Routine [facility] aspirin chewable tablet 81 mg 2023-07 14:00: 00 Yes 81mg 81 mg, Oral, DAILY, First dose on Tue05/02/24 at 0900, Until Discontinu ed, Routine [facility] amLODIPine (NORVASC) tablet 5 mg 2023-07 14:00: 00 Yes 5mg 5 mg, Oral, DAILY, First dose on Tue05/02/24 at 0900, Until Discontinu ed, Routine [facility] allopurinoL (ZYLOPRIM) tablet 100 mg 2023-07 14:00: 00 Yes 100mg 100 mg, Oral, DAILY, First dose on Tue05/02/24 at 0900, Until Discontinu ed, Routine [facility] insulin glargine (LANTUS U-100) injection 10 Units 2023-07 13:00: 00 Yes 10U 10 Units, Subcutaneo us, BID, First dose on Tue05/02/24 at 0800, Until Discontinu ed, Routine [facility] gabapentin (NEURONTIN) capsule 600 mg 2023-07 13:00: 00 Yes 600mg 600 mg, Oral, TID, First dose on Tue05/02/24 at 0800, Until Discontinu ed, Routine [facility] DULoxetine (CYMBALTA) capsule 60 mg 2023-07 13:00: 00 Yes 60mg 60 mg, Oral, BID, First dose on Tue05/02/24 at 0800, Until Discontinu ed, Routine [facility] docusate (COLACE) capsule 100 mg 2023-07 13:00: 00 Yes 100mg 100 mg, Oral, BID, First dose on Tue05/02/24 at 0800, Until Discontinu ed, Routine [facility] carvediloL (COREG) tablet 6.25 mg 2023-07 13:00: 00 Yes 6.25mg 6.25 mg, Oral, BID MEALS, First dose on Tue05/02/24 at 0800, Until Discontinu ed, Routine [facility] apixaban (ELIQUIS) tablet 5 mg 2023-07 13:00: 00 Yes 5mg 5 mg, Oral, BID, First dose on Tue05/02/24 at 0800, Until Discontinu ed, Routine, Indication s: Non-Valvul ar Atrial Fibrillati on [facility] levothyroxi ne (SYNTHROID) tablet 137 mcg 2023-07 11:00: 00 Yes 137ug 137 mcg, Oral, QAM-0600, First dose on Tue05/02/24 at 0600, Until Discontinu ed, Routine [facility] ondansetron (ZOFRAN) tablet 4 mg 2023-07 10:28: 49 Yes 4mg [facility] lactulose (CEPHULAC) 10 gram/15 mL oral solution 30 mL 2023-07 10:28: 16 Yes 30mL [facility] phenylephri ne (ALCONEFRIN 12 NASAL) 0.25 % nasal spray 1 [place] 2023-07 10:26: 33 Yes 1{spray } 1 [place], Nasal, Q4HPRN, Starting on Tue05/02/24 at 0526, Until Discontinu ed, Routine, nasal congestion [facility] morphine (2 mg/mL) injection 2 mg 2023-07 04:30: 46 Yes 2mg 2 mg, Slow IV Push, Q6HPRN, Starting on Tue05/01/24 at 2330, Until Discontinu ed, Routine, Pain (scale 7-10) [facility] HYDROcodone -acetaminop hen (NORCO 5) tablet 1 tablet 2023-07 04:30: 30 05-03 22:29 :30 No 1{tbl} 1 tablet, Oral, Q4HPRN, Starting on Tue05/01/24 at 2330, Until Tayla 05/03/24 at 1729, Routine, Pain (scale 4-6) [facility] nitroglycer in (NITROSTAT) sublingual tablet 0.4 mg 2023-07 23:18: 22 Yes .4mg 0.4 mg, Sublingual , Q5MIN PRN, Starting on Tue05/01/24 at 1818, Until Discontinu ed, Routine, Chest pain [facility] HYDROcodone -acetaminop hen (NORCO 5) tablet 1 tablet 2023-07 23:16: 58 05-02 04:30 :56 No 1{tbl} 1 tablet, Oral, Q6HPRN, Starting on Tue05/01/24 at 1816, Until Tue05/01/24 at 2330, Routine, Pain (scale 4-6) [facility] acetaminoph en (TYLENOL) tablet 650 mg 2023-07 23:16: 48 Yes 650mg 650 mg, Oral, Q6HPRN, Starting on Tue05/01/24 at 1816, Until Discontinu ed, Routine, Pain (scale 1-3) [facility] acetaminoph en (TYLENOL) tablet 1,000 mg 2023-07 23:00: 00 05-01 23:03 :00 No 1000mg 1,000 mg, Oral, ONCE NOW, 1 dose, On Tue05/01/24 at 1800, Routine [facility] sodium chloride (NS) injection 5 mL 02-07 20:49: 30 Yes 5mL 5 mL, Intravenou s, PRN, Starting on Tue02/08/24 at 1549, Until Discontinu ed, Routine, IV line flushing [facility] HYDROcodone -acetaminop hen (NORCO 5) 5-325 mg tablet 1 tablet 02-07 20:45: 00 02-07 20:44 :00 No 1{tbl} 1 tablet, Oral, ONCE, 1 dose, On Tue02/08/24 at 1545, SPIKE [facility] cetirizine 5 mg tablet 2022-07 00:00: 00 07-03 05:59 :00 No [id number] 5mg Take 1 tablet by mouth in the morning for 14 days. [facility] cholecalcif cory, vitamin D3, 25 mcg (1,000 unit) tablet 2022-07 00:00: 00 06-29 05:59 :00 No [id number] 1000U Take 1 tablet by mouth in the morning for 10 days. [facility] azithromyci n 500 mg tablet 2022-07 00:00: 00 06-21 05:59 :00 No [id number] 500mg Take 1 tablet by mouth in the morning for 2 days. [facility] azithromyci n (ZITHROMAX) tablet 500 mg 2022-07 15:00: 00 06-20 14:59 :00 No 500mg 500 mg, Oral, DAILY, 3 doses, First dose on Tue06/17/23 at 0900, Last dose on 06/19/23 at 0900, SPIKE
Re ason for Anti-Infec tive: Empiric Therapy for Suspected Infection< br>Empiric Therapy Site: Respirator y
Durat ion of therapy: 72 hours [facility] DULoxetine 30 mg capsule 2022-07 13:25: 16 Yes 30mg Take 1 capsule by mouth in the morning and 1 capsule in the evening. [facility] gabapentin 100 mg capsule 2022-07 13:25: 16 Yes 100mg Take 1 capsule by mouth in the morning and 1 capsule in the evening. [facility] Melatonin 5 mg tablet 2022-07 13:25: 16 Yes 5mg Take 1 tablet by mouth at bedtime. [facility] metFORMIN 1,000 mg tablet 2022-07 13:25: 16 Yes 850mg Take 850 mg by mouth in the morning and 850 mg in the evening. Take with meals. [facility] apixaban 5 mg tablet 2022-07 13:25: 16 Yes 5mg Take 1 tablet by mouth in the morning and 1 tablet in the evening. [facility] carvediloL 6.25 mg tablet 2022-07 13:25: 16 Yes 6.25mg Take 1 tablet by mouth in the morning and 1 tablet in the evening. Take with meals. [facility] DULoxetine 30 mg capsule 2022-07 13:25: 16 Yes 60mg Take 2 capsules by mouth in the morning and 2 capsules in the evening. [facility] furosemide 20 mg tablet 2022-07 13:25: 16 Yes 20mg Take 1 tablet by mouth in the morning. [facility] gabapentin 100 mg capsule 2022-07 13:25: 16 Yes 600mg Take 6 capsules by mouth in the morning and 6 capsules at noon and 6 capsules in the evening. [facility] insulin glargine 100 unit/mL injection 2022-07 13:25: 16 Yes 10U inject 10 Units under the skin in the morning and 10 Units in the evening. [facility] empaglifloz in (JARDIANCE) 10 mg 2022-07 13:25: 16 Yes 10mg Take 1 tablet by mouth in the morning. [facility] levothyroxi ne 137 mcg tablet 2022-07 13:25: 16 Yes 137ug Take 1 tablet by mouth every morning. [facility] diphenoxyla te-atropine (LOMOTIL) 2.5-0.025 mg tablet 2022-07 13:25: 16 Yes 1{tbl} Take 1 tablet by mouth every 6 (six) hours as needed. [facility] lovastatin 20 mg tablet 2022-07 13:25: 16 Yes 20mg Take 1 tablet by mouth at bedtime. [facility] Melatonin 5 mg tablet 2022-07 13:25: 16 Yes 10mg Take 2 tablets by mouth at bedtime. [facility] metFORMIN 1,000 mg tablet 2022-07 13:25: 16 Yes 1000mg Take 1 tablet by mouth in the morning and 1 tablet in the evening. Take with meals. [facility] NOVOLOG U-100 INSULIN ASPART SC 2022-07 13:25: 16 Yes inject under the skin. Per sliding scale [facility] omeprazole 40 mg capsule 2022-07 13:25: 16 Yes 40mg Take 1 capsule by mouth in the morning. [facility] acetaminoph en-codeine 300-30 mg tablet 2022-07 13:25: 16 Yes 1{tbl} Take 1 tablet by mouth every 6 (six) hours as needed. [facility] amLODIPine 5 mg tablet 2022-07 13:25: 16 07-17 00:00 :00 No 5mg Take 1 tablet by mouth in the morning. [facility] KCL 10 mEq tablet 2022-07 13:25: 16 05-02 00:00 :00 No 20meq Take 2 tablets by mouth in the morning. [facility] methylPREDN ISolone sod succ (SOLU-MEDRO L (PF)) injection 40 mg 2022-07 03:30: 00 06-17 15:04 :43 No 40mg 40 mg, Intravenou s, Q6H ABX, First dose (after last modificati on) on Tue06/16/23 at 2130, Until Discontinu ed, Routine [facility] lidocaine (LIDODERM) 5 % (700 mg/patch) patch 1 Patch 2022-07 01:30: 00 06-17 14:16 :00 No 1{patch } 1 Patch, Topical, Administer over 12 Hours, ONCE, 1 dose, On Tue06/16/23 at 1930, Routine [facility] fluticasone propionate 50 mcg/actuati on nasal spray 2022-07 00:00: 00 Yes [id number] 2 sprays to each nare once daily; Dispense 1 container as available for a 10 day supply [facility] ascorbic acid, vitamin C, 500 mg tablet 2022-07 00:00: 00 06-28 05:59 :00 No [id number] 500mg Take 1 tablet by mouth in the morning and 1 tablet in the evening. Do all this for 10 days. [facility] zinc sulfate 50 mg zinc (220 mg) capsule 2022-07 00:00: 00 06-28 05:59 :00 No [id number] 50mg Take 1 capsule by mouth in the morning and 1 capsule at noon and 1 capsule in the evening. Do all this for 10 days. [facility] sodium chloride 0.65 % nasal spray 2022-07 00:00: 00 06-21 05:59 :00 No [id number] 1{spray } Use 1 [place] in each nostril 4 (four) times daily for 3 days. [facility] ipratropium -albuteroL (DUONEB) 0.5 mg-3 mg(2.5 mg base)/3 mL nebulizer solution 3 mL 2022-07 22:00: 00 Yes 3mL 3 mL, Inhalation , QID, First dose on Tue06/16/23 at 1600, Until Discontinu ed, Routine [facility] sodium chloride (OCEAN MIST NASAL) 0.65 % nasal spray 1 [place] 2022-07 22:00: 00 Yes 1{spray } 1 [place], Nasal, QID, First dose on Tue06/16/23 at 1600, Until Discontinu ed, Routine [facility] codeine-gua ifenesin (ROBITUSSIN AC) 10-100 mg/5 mL oral solution 5 mL 2022-07 22:00: 00 06-17 18:03 :00 No 5mL 5 mL, Oral, Q4H, 6 doses, First dose (after last reorder) on Tue06/16/23 at 1600, Last dose on Tue06/17/23 at 1200, Routine [facility] acetylcyste ine (MUCOMYST) 200 mg/mL (20 %) inhalation solution 800 mg 2022-07 22:00: 00 06-17 16:07 :44 No 4mL 800 mg (4 mL), Inhalation , QID, 12 doses, First dose on Tue06/16/23 at 1600, Last dose on Tue06/19/23 at 1200, Routine [facility] proMETHazin e (PHENERGAN) 25 mg in NS 50 mL IV piggyback (CNR) 2022-07 21:05: 29 Yes 25mg 25 mg, IV Piggyback, at 200 mL/hr Administer over 15 Minutes, Q4HPRN, Starting on Tue06/16/23 at 1505, Until Discontinu ed, Routine, Nausea and Vomiting (N/V) [facility] codeine-gua ifenesin (ROBITUSSIN AC) 10-100 mg/5 mL oral solution 5 mL 2022-07 19:30: 00 06-16 19:44 :00 No 5mL 5 mL, Oral, ONCE, 1 dose, On Tue06/16/23 at 1330, Routine [facility] lisinopriL (PRINIVIL,Z ESTRIL) tablet 2.5 mg 2022-07 18:45: 00 Yes 2.5mg 2.5 mg, Oral, DAILY, First dose on Tue06/16/23 at 1245, Until Discontinu ed, Routine [facility] hydralAZINE (APRESOLINE ) injection 5 mg 2022-07 18:36: 35 Yes 5mg 5 mg, Slow IV Push, Q6HPRN, Starting on Tue06/16/23 at 1236, Until Discontinu ed, Routine, DBP=>100; SBP=>180, SBP > 180 [facility] cholecalcif cory (vitamin D3) tablet 1,000 Units 2022-07 15:00: 00 Yes 1000U 1,000 Units, Oral, DAILY, First dose on Tue06/16/23 at 0900, Until Discontinu ed, Routine [facility] cetirizine (ZYRTEC) tablet 5 mg 2022-07 15:00: 00 Yes 5mg 5 mg, Oral, DAILY, First dose on Tue06/16/23 at 0900, Until Discontinu ed, Routine [facility] fluticasone propionate 50 mcg/actuati on nasal spray 2 [place] 2022-07 15:00: 00 Yes 2{spray } 2 [place], Nasal, DAILY, First dose on Tue06/16/23 at 0900, Until Discontinu ed, Routine [facility] furosemide (LASIX) tablet 20 mg 2022-07 15:00: 00 Yes 20mg 20 mg, Oral, DAILY, First dose on Tue06/16/23 at 0900, Until Discontinu ed, Routine [facility] levothyroxi ne (SYNTHROID) tablet 137 mcg 2022-07 12:00: 00 Yes 137ug 137 mcg, Oral, QAM-0600, First dose on Tue06/16/23 at 0600, Until Discontinu ed, Routine [facility] methylPREDN ISolone sod succ (SOLU-MEDRO L (PF)) injection 40 mg 2022-07 08:00: 00 06-16 07:34 :00 No 40mg 40 mg, Intravenou s, ONCE, 1 dose, On Tue06/16/23 at 0200, 1 mL [facility] morpHINE (2 mg/mL) injection 2 mg 2022-07 07:11: 58 06-17 07:10 :58 No 2mg 2 mg, Slow IV Push, Q6HPRN, Starting on Tue06/16/23 at 0111, Until Tue06/17/23 at 0110, Routine, Pain (scale 7-10) [facility] temazepam (RESTORIL) capsule 15 mg 2022-07 07:11: 19 Yes 15mg 15 mg, Oral, QHSPRN, Starting on Tue06/16/23 at 0111, Until Discontinu ed, Routine, Insomnia [facility] melatonin (MELATIN) tablet 4.5 mg 2022-07 03:00: 00 Yes 5mg 4.5 mg (rounded from 5 mg), Oral, QHS, First dose on Tue06/15/23 at 2100, Until Discontinu ed [facility] atorvastati n (LIPITOR) tablet 20 mg 2022-07 03:00: 00 Yes 20mg 20 mg, Oral, QHS, First dose on Tue06/15/23 at 2100, Until Discontinu ed [facility] zinc sulfate (ORAZINC) capsule 50 mg 2022-07 02:00: 00 Yes 50mg 50 mg, Oral, TID, First dose on Tue06/15/23 at 2000, Until Discontinu ed, Routine [facility] ascorbic acid (vitamin C) (VITAMIN C) tablet 500 mg 2022-07 02:00: 00 Yes 500mg 500 mg, Oral, BID, First dose on Tue06/15/23 at 2000, Until Discontinu ed, Routine [facility] NaCl 0.9% (NS) bolus infusion 500 mL 2022-07 01:30: 00 06-16 15:00 :00 No 500mL at 50 mL/hr, 500 mL, IV Piggyback, ONCE, 1 dose, On Tue06/15/23 at 1930, STAT [facility] guaiFENesin 100 mg/5 mL solution 200 mg 2022-07 22:52: 27 06-16 21:05 :12 No 200mg 200 mg, Oral, Q4HPRN, Starting on Tue06/15/23 at 1652, Until Tue06/16/23 at 1505, Routine, Cough [facility] Sliding Scale Insulin-Reg ular 2022-07 17:30: 00 Yes Subcutaneo us, AC+HS, First dose on Tue06/15/23 at 1130, Until Discontinu ed, Routine [facility] sulfur hexafluorid e microsphr (LUMASON) injection 5 mL 2022-07 15:30: 00 06-15 15:30 :00 No [id number] 5mL 5 mL, Intravenou s, ONCE, 1 dose, On Tue06/15/23 at 0930, Routine
retail team member approving Restricted medication : GERALDO JAMES [facility] pantoprazol e (PROTONIX) EC tablet 40 mg 2022-07 15:00: 00 Yes 40mg 40 mg, Oral, DAILY, First dose on Tue06/15/23 at 0900, Until Discontinu ed [facility] KCL (KLOR-CON M20) tablet 20 mEq 2022-07 15:00: 00 Yes 20meq 20 mEq, Oral, DAILY, First dose on Tue06/15/23 at 0900, Until Discontinu ed, Routine [facility] insulin glargine (LANTUS U-100) injection 10 Units 2022-07 15:00: 00 Yes 10U 10 Units, Subcutaneo us, QAM+HS, First dose on Tue06/15/23 at 0900, Until Discontinu ed, Routine [facility] empaglifloz in (JARDIANCE) tablet 10 mg 2022-07 15:00: 00 Yes 10mg 10 mg, Oral, DAILY, First dose on Tue06/15/23 at 0900, Until Discontinu ed, Routine
Is this a home medication ? Yes
Has this patient brought their own medication ? No
[facility] will dispense the medication from inpatient. Pharmacy will dispense the medication from inpatient.
Inpati ent ordering of this medication is not allowed unless the patient is maintained on this medication at home, and home supply is unavailabl e. Does this order meet the criteria for inpatient ordering? Yes [facility] aspirin chewable tablet 81 mg 2022-07 15:00: 00 Yes 81mg 81 mg, Oral, DAILY, First dose on Tue06/15/23 at 0900, Until Discontinu ed, Routine [facility] amLODIPine (NORVASC) tablet 5 mg 2022-07 15:00: 00 Yes 5mg 5 mg, Oral, DAILY, First dose on Tue06/15/23 at 0900, Until Discontinu ed, Routine [facility] docusate (COLACE) capsule 100 mg 2022-07 15:00: 00 Yes 100mg 100 mg, Oral, DAILY, First dose on Tue06/15/23 at 0900, Until Discontinu ed, Routine [facility] nitroglycer in (TRANSDERM- NITRO) 0.4 mg/hr patch 1 Patch 2022-07 15:00: 00 06-16 01:01 :11 No 1{patch } 1 Patch, Transderma l (Apply To Skin), Administer over 12 Hours, DAILY, First dose on Tue06/15/23 at 0900, Until Discontinu ed, Routine [facility] glucagon (GLUCAGEN DIAGNOSTIC KIT) injection 1 mg 2022-07 14:38: 48 Yes 1mg 1 mg, Intramuscu lar, PRN, Starting on Tue06/15/23 at 0838, Until Discontinu ed, SPIKE, Blood Glucose < or = 70 mg/dL and patient is NPO, unable to swallow or has mental changes. [facility] dextrose 50 % in water (D50W) injection 25 mL 2022-07 14:38: 48 Yes 25mL 25 mL, Slow IV Push, PRN, Starting on Tue06/15/23 at 0838, Until Discontinu ed, SPIKE, Blood Glucose < or = 70 mg/dL and patient is NPO, unable to swallow or has mental status changes. [facility] gabapentin (NEURONTIN) capsule 100 mg 2022-07 14:00: 00 Yes 100mg 100 mg, Oral, BID, First dose on Tue06/15/23 at 0800, Until Discontinu ed, Routine [facility] DULoxetine (CYMBALTA) capsule 30 mg 2022-07 14:00: 00 Yes 30mg 30 mg, Oral, BID, First dose on Tue06/15/23 at 0800, Until Discontinu ed, Routine [facility] carvediloL (COREG) tablet 6.25 mg 2022-07 14:00: 00 Yes 6.25mg 6.25 mg, Oral, BID MEALS, First dose on Tue06/15/23 at 0800, Until Discontinu ed, Routine [facility] apixaban (ELIQUIS) tablet 5 mg 2022-07 14:00: 00 Yes 5mg 5 mg, Oral, BID, First dose on Tue06/15/23 at 0800, Until Discontinu ed, Routine
Indicatio ns: Non-Valvul ar Atrial Fibrillati on [facility] acetaminoph en-codeine (TYLENOL #3) 300-30 mg tablet 1 tablet 2022-07 13:23: 00 Yes 1{tbl} 1 tablet, Oral, Q6HPRN, Starting on Tue06/15/23 at 0723, Until Discontinu ed, Routine, Pain (scale 1-3) [facility] pantoprazol e (PROTONIX) EC tablet 40 mg 2022-07 12:00: 00 06-15 13:24 :25 No 40mg 40 mg, Oral, QAM-0600, First dose on Tue06/15/23 at 0600, Until Discontinu ed, Routine [facility] ondansetron (ZOFRAN (PF)) injection 4 mg 2022-07 06:35: 49 06-16 21:05 :07 No 4mg 4 mg, Slow IV Push, Q6HPRN, Starting on Tue06/15/23 at 0035, Until Tayla 06/16/23 at 1505, Routine, Nausea and Vomiting (N/V) [facility] morpHINE (2 mg/mL) injection 2 mg 2022-07 06:35: 39 06-16 06:34 :39 No 2mg 2 mg, Slow IV Push, Q4HPRN, Starting on Tue06/15/23 at 0035, Until Tayla 06/16/23 at 0034, Routine, Pain (scale 7-10) [facility] HYDROcodone -acetaminop hen (NORCO 5) 5-325 mg tablet 1 tablet 2022-07 06:35: 36 06-17 06:34 :36 No 1{tbl} 1 tablet, Oral, Q6HPRN, Starting on Tue06/15/23 at 0035, Until Tue06/17/23 at 0034, Routine, Pain (scale 4-6) [facility] nitroglycer in (NITROSTAT) sublingual tablet 0.4 mg 2022-07 03:30: 00 06-15 03:32 :00 No [id number] .4mg 0.4 mg, Sublingual , ONCE, 1 dose, On Tue06/14/23 at 2130, [facility] HYDROcodone -acetaminop hen (NORCO 5) 5-325 mg tablet 1 tablet 02-16 05:15: 00 02-16 04:21 :00 No 1{tbl} 1 tablet, Oral, ONCE, 1 dose, On Tue02/16/23 at 0015, [facility] acetaminoph en (TYLENOL) tablet 650 mg 12-28 13:15: 00 12-28 13:27 :00 No 650mg 650 mg, Oral, ONCE, 1 dose, On Tue12/28/22 at 0815, [facility] lisinopriL (PRINIVIL,Z ESTRIL) tablet 2.5 mg 07-31 15:00: 00 Yes 2.5mg 2.5 mg, Oral, DAILY, First dose on Tue07/31/22 at 0900, Until Discontinu ed, Routine [facility] lisinopriL 2.5 mg tablet 07-31 00:00: 00 Yes [id number] 2.5mg Take 1 tablet by mouth in the morning. [facility] omeprazole 40 mg capsule 07-30 18:09: 50 Yes 40mg Take 40 mg by mouth in the morning. [facility] KCL 10 mEq tablet 07-30 18:09: 50 Yes 20meq Take 20 mEq by mouth in the morning. [facility] acetaminoph en-codeine 300-30 mg tablet 07-30 18:09: 50 Yes 1{tbl} Take 1 tablet by mouth every 6 (six) hours as needed. [facility] apixaban 5 mg tablet 07-30 18:09: 50 Yes 5mg Take 5 mg by mouth in the morning and 5 mg in the evening. [facility] DULoxetine 30 mg capsule 07-30 18:09: 50 Yes 30mg Take 30 mg by mouth in the morning and 30 mg in the evening. [facility] furosemide 20 mg tablet 07-30 18:09: 50 Yes 20mg Take 20 mg by mouth in the morning. [facility] gabapentin 100 mg capsule 07-30 18:09: 50 Yes 100mg Take 100 mg by mouth in the morning and 100 mg in the evening. [facility] insulin glargine 100 unit/mL injection 07-30 18:09: 50 Yes 10U inject 10 Units under the skin every morning and at bedtime. [facility] empaglifloz in (JARDIANCE) 10 mg 07-30 18:09: 50 Yes 10mg Take 10 mg by mouth in the morning. [facility] levothyroxi ne 137 mcg tablet 07-30 18:09: 50 Yes 137ug Take 137 mcg by mouth every morning. [facility] diphenoxyla te-atropine (LOMOTIL) 2.5-0.025 mg tablet 07-30 18:09: 50 Yes 1{tbl} Take 1 tablet by mouth every 6 (six) hours as needed. [facility] lovastatin 20 mg tablet 07-30 18:09: 50 Yes 20mg Take 20 mg by mouth at bedtime. [facility] Melatonin 5 mg tablet 07-30 18:09: 50 Yes 5mg Take 5 mg by mouth at bedtime. [facility] metFORMIN 1,000 mg tablet 07-30 18:09: 50 Yes 850mg Take 850 mg by mouth in the morning and 850 mg in the evening. Take with meals. [facility] NOVOLOG U-100 INSULIN ASPART SC 07-30 18:09: 50 Yes inject under the skin. Per sliding scale [facility] losartan-hy drochloroth iazide 100-25 mg per tablet 07-30 14:42: 49 07-30 00:00 :00 No 1{tbl} Take 1 tablet by mouth in the morning. [facility] melatonin (MELATIN) tablet 6 mg 07-30 03:00: 00 Yes 6mg 6 mg, Oral, QHS, First dose on Tue07/29/22 at 2100, Until Discontinu ed [facility] atorvastati n (LIPITOR) tablet 10 mg 07-30 03:00: 00 Yes 10mg 10 mg, Oral, QHS, First dose on Tue07/29/22 at 2100, Until Discontinu ed [facility] aspirin 81 mg chewable tablet 07-30 00:00: 00 07-17 00:00 :00 No [id number] 81mg Take 1 tablet by mouth in the morning. [facility] omeprazole (PRILOSEC) capsule 40 mg 07-29 15:00: 00 Yes 40mg 40 mg, Oral, DAILY, First dose on Tue07/29/22 at 0900, Until Discontinu ed [facility] insulin glargine (LANTUS U-100) injection 5 Units 07-29 15:00: 00 Yes 5U 5 Units, Subcutaneo us, QAM+HS, First dose on Tue07/29/22 at 0900, Until Discontinu ed, Routine [facility] furosemide (LASIX) tablet 20 mg 07-29 15:00: 00 Yes 20mg 20 mg, Oral, DAILY, First dose on Tue07/29/22 at 0900, Until Discontinu ed, Routine [facility] empaglifloz in (JARDIANCE) tablet 10 mg 07-29 15:00: 00 Yes 10mg 10 mg, Oral, DAILY, First dose on Tue07/29/22 at 0900, Until Discontinu ed, Routine
Is this a home medication ? Yes
Has this patient brought their own medication ? No
[facility] will dispense the medication from inpatient. Pharmacy will dispense the medication from inpatient.
Inpati ent ordering of this medication is not allowed unless the patient is maintained on this medication at home, and home supply is unavailabl e. Does this order meet the criteria for inpatient ordering? Yes [facility] gabapentin (NEURONTIN) capsule 100 mg 07-29 14:00: 00 Yes 100mg 100 mg, Oral, BID, First dose on Tue07/29/22 at 0800, Until Discontinu ed, Routine [facility] apixaban (ELIQUIS) tablet 5 mg 07-29 14:00: 00 Yes 5mg 5 mg, Oral, BID, First dose on Tue07/29/22 at 0800, Until Discontinu ed, Routine
Indicatio ns: Non-Valvul ar Atrial Fibrillati on [facility] Sliding Scale Insulin - Lispro (HumaLOG) + Fsbg Testing 07-29 14:00: 00 Yes Subcutaneo us, TID MEALS, First dose on Tue07/29/22 at 0800, Until Discontinu ed, Routine [facility] NaCl 0.9% (NS) IV infusion 1,000 mL 07-29 12:45: 00 07-29 18:08 :49 No 1000mL at 50 mL/hr, IV Infusion, CONTINUOUS , Starting on Tue07/29/22 at 0645, Until Tue07/29/22 at 1208, Routine [facility] NaCl 0.9% (NS) bolus infusion 500 mL 07-29 12:30: 00 07-29 12:39 :46 No 500mL at 999 mL/hr, 500 mL, IV Piggyback, ONCE, 1 dose, On Tue07/29/22 at 0630, STAT [facility] levothyroxi ne (SYNTHROID) tablet 137 mcg 07-29 12:00: 00 Yes 137ug 137 mcg, Oral, QAM-0600, First dose on Tue07/29/22 at 0600, Until Discontinu ed, [facility]LIDODERM[facility] 5 % (700 mg/patch) patch 1 Patch 07-29 11:45: 00 Yes 1{patch } 1 Patch, Topical, Administer over 12 Hours, DAILY, First dose on Tue07/29/22 at 0545, Until Discontinu ed, Routine [facility] traMADoL (ULTRAM) tablet 50 mg 07-29 11:29: 46 Yes 50mg 50 mg, Oral, Q6HPRN, Starting on Tue07/29/22 at 0529, Until Discontinu ed, Routine, Pain (scale 4-6) [facility] morpHINE (2 mg/mL) injection 2 mg 07-29 08:26: 40 Yes 2mg 2 mg, Slow IV Push, Q4HPRN, Starting on Tue07/29/22 at 0226, Until Discontinu ed, Routine, Chest pain [facility] docusate (COLACE) capsule 100 mg 07-29 07:30: 00 Yes 100mg 100 mg, Oral, BID, First dose on Tue07/29/22 at 0130, Until Discontinu ed, Routine [facility] ondansetron (ZOFRAN (PF)) injection 4 mg 07-29 07:17: 12 Yes 4mg 4 mg, Slow IV Push, Q6HPRN, Starting on Tue07/29/22 at 0117, Until Discontinu ed, Routine, Nausea and Vomiting (N/V) [facility] magnesium sulfate in water 2 gram/50 mL (4 %) infusion 2 g 07-29 07:15: 00 07-29 08:51 :00 No 2g 2 g, IV Piggyback, Administer over 120 Minutes, ONCE, 1 dose, On Tue07/29/22 at 0115, Routine [facility] HYDROcodone -acetaminop hen (NORCO 5) 5-325 mg tablet 1 tablet 07-29 06:45: 00 07-29 05:31 :00 No 1{tbl} 1 tablet, Oral, ONCE, 1 dose, On Tayla 07/29/22 at 0045, SPIKE [facility] Amoxicillin -Pot Clavulanate 875-125 MG Amoxicillin -Pot Clavulanate 875-125 MG 2021-0 7-18 00:00: 00 02-01 00:00 :00 No 1{table t} BID Amoxicilli n-Pot Clavulanat e 875-125 MG Amoxicillin -Pot Clavulanate 875-125 MG Amoxicillin -Pot Clavulanate 875-125 MG 2021-0 18 00:00: 00 02-01 00:00 :00 No 1{table t} BID Amoxicilli n-Pot Clavulanat e 875-125 MG Blood Pressure Monitor - Blood Pressure Monitor - 2021-0 4-06 00:00: 00 No Blood Pressure Monitor - Lancets - Lancets - 2-0 4-06 00:00: 00 No BID Lancets - Lancets - Lancets - 2-0 4-06 00:00: 00 No BID Lancets - Blood Pressure Monitor - Blood Pressure Monitor - 2-0 4-06 00:00: 00 No Blood Pressure Monitor - Lancets - Lancets - 2-0 4-06 00:00: 00 No BID Lancets - Lancets - Lancets - 2-0 4-06 00:00: 00 No BID Lancets - Lancets - Lancets - 2-0 4-06 00:00: 00 No BID Lancets - Glucometer n/s Glucometer n/s 2-0 4-06 00:00: 00 No Glucometer n/s Lancets - Lancets - 2-0 4-06 00:00: 00 No BID Lancets - Blood Pressure Monitor - Blood Pressure Monitor - 2-0 4-06 00:00: 00 No Blood Pressure Monitor - Glucometer n/s Glucometer n/s 2-0 4-06 00:00: 00 No Glucometer n/s Lancets - Lancets - 2-0 4-06 00:00: 00 No BID Lancets - Blood Pressure Monitor - Blood Pressure Monitor - 2-0 4-06 00:00: 00 No Blood Pressure Monitor - Glucose testing strips n/s Glucose testing strips n/s 2-0 4-06 00:00: 00 No BID Glucose testing strips n/s Blood Pressure Monitor - Blood Pressure Monitor - 2-0 4-06 00:00: 00 No Blood Pressure Monitor - Lancets - Lancets - 2-0 4-06 00:00: 00 No BID Lancets - Glucose testing strips n/s Glucose testing strips n/s 2-0 4-06 00:00: 00 No BID Glucose testing strips n/s Blood Pressure Monitor - Blood Pressure Monitor - 2-0 4-06 00:00: 00 No Blood Pressure Monitor - Lancets - Lancets - 2-0 4-06 00:00: 00 No BID Lancets - Glucose testing strips n/s Glucose testing strips n/s 2-0 4-06 00:00: 00 No BID Glucose testing strips n/s Blood Pressure Monitor - Blood Pressure Monitor - 2-0 4-06 00:00: 00 No Blood Pressure Monitor - Lancets - Lancets - 2-0 4-06 00:00: 00 No BID Lancets - Glucose testing strips n/s Glucose testing strips n/s 2021-0 4-06 00:00: 00 No BID Glucose testing strips n/s Blood Pressure Monitor - Blood Pressure Monitor - 2-0 4-06 00:00: 00 No Blood Pressure Monitor - Glucose testing strips n/s Glucose testing strips n/s 2-0 4-06 00:00: 00 No BID Glucose testing strips n/s Blood Pressure Monitor - Blood Pressure Monitor - 2021-0 4-06 00:00: 00 No Blood Pressure Monitor - Glucose testing strips n/s Glucose testing strips n/s 2-0 4-06 00:00: 00 No BID Glucose testing strips n/s Blood Pressure Monitor - Blood Pressure Monitor - 2-0 4-06 00:00: 00 No Blood Pressure Monitor - Potassium Chloride ER 20 MEQ Potassium Chloride ER 20 MEQ 2020- 8-10 00:00: 00 - 00:00 :00 No 1{table t_with_ food} BID Potassium Chloride ER 20 MEQ methylPREDN ISolone (MEDROL, RENEE,) 4 mg tablets 2018-07-19 00:00: 00 2022- 07-29 00:00 :00 No 84mg Take 21 tablets by mouth SEE-INSTRU CTIONS. follow package directions [facility] Apixaban 5 MG Apixaban 5 MG No 1{table t} BID Apixaban 5 MG Aspirin 81 MG Aspirin 81 MG No 1{table t} QD Aspirin 81 MG Gabapentin 100 MG Gabapentin 100 MG No 1{capsu le} BID Gabapentin 100 MG Carvedilol 6.25 MG Carvedilol 6.25 MG No 1{table t_with_ food} BID Carvedilol 6.25 MG amLODIPine Besylate 5 MG amLODIPine Besylate 5 MG No 1{table t} QD amLODIPine Besylate 5 MG metFORMIN HCl 850 MG metFORMIN HCl 850 MG No 1{table t_with_ a_meal} BID metFORMIN HCl 850 MG Vitamin B 12 100 MCG Vitamin B 12 100 MCG No Vitamin B 12 100 MCG DULoxetine HCl 30 MG DULoxetine HCl 30 MG No 1{capsu le} BID DULoxetine HCl 30 MG Lovastatin 40 MG Lovastatin 40 MG No QD Lovastatin 40 MG traMADol HCl 50 MG traMADol HCl 50 MG No 1{table t_as_ne eded} QID traMADol HCl 50 MG glipiZIDE 5 MG glipiZIDE 5 MG No BID glipiZIDE 5 MG Melatonin 5 MG Melatonin 5 MG No 1{table t_in_th e_eveni ng} QD Melatonin 5 MG Eliquis 5 mg 5 mg Eliquis 5 mg 5 mg No Eliquis 5 mg 5 mg Aspirin 81 MG Aspirin 81 MG No 1{table t} QD Aspirin 81 MG Gabapentin 100 MG Gabapentin 100 MG No 1{capsu le} BID Gabapentin 100 MG Carvedilol 6.25 MG Carvedilol 6.25 MG No 1{table t_with_ food} BID Carvedilol 6.25 MG amLODIPine Besylate 5 MG amLODIPine Besylate 5 MG No 1{table t} QD amLODIPine Besylate 5 MG metFORMIN HCl 850 MG metFORMIN HCl 850 MG No 1{table t_with_ a_meal} BID metFORMIN HCl 850 MG Vitamin B 12 100 MCG Vitamin B 12 100 MCG No Vitamin B 12 100 MCG DULoxetine HCl 30 MG DULoxetine HCl 30 MG No 1{capsu le} BID DULoxetine HCl 30 MG Lovastatin 40 MG Lovastatin 40 MG No QD Lovastatin 40 MG traMADol HCl 50 MG traMADol HCl 50 MG No 1{table t_as_ne eded} QID traMADol HCl 50 MG glipiZIDE 5 MG glipiZIDE 5 MG No BID glipiZIDE 5 MG Losartan Potassium-H CTZ 100-25 MG Losartan Potassium-H CTZ 100-25 MG No 1{table t} QD Losartan Potassium- HCTZ 100-25 MG Melatonin 5 MG Melatonin 5 MG No 1{table t_in_th e_eveni ng} QD Melatonin 5 MG Lovastatin 40 MG Lovastatin 40 MG No QD Lovastatin 40 MG Nitroglycer in 0.4 MG Nitroglycer in 0.4 MG No Nitroglyce rin 0.4 MG Microlet Lancets Microlet Lancets No Microlet Lancets amLODIPine Besylate 5 MG amLODIPine Besylate 5 MG No 1{table t} QD amLODIPine Besylate 5 MG traMADol HCl 50 MG traMADol HCl 50 MG No 1{table t_as_ne eded} QID traMADol HCl 50 MG Diphenoxyla te-Atropine 2.5-0.025 MG Diphenoxyla te-Atropine 2.5-0.025 MG No 1{table t_as_ne eded} QID Diphenoxyl ate-Atropi ne 2.5-0.025 MG DULoxetine HCl 30 MG DULoxetine HCl 30 MG No 1{capsu le} BID DULoxetine HCl 30 MG Losartan Potassium-H CTZ 100-25 MG Losartan Potassium-H CTZ 100-25 MG No 1{table t} QD Losartan Potassium- HCTZ 100-25 MG Carvedilol 6.25 MG Carvedilol 6.25 MG No 1{table t_with_ food} BID Carvedilol 6.25 MG Aspirin 81 MG Aspirin 81 MG No 1{table t} QD Aspirin 81 MG Omeprazole 40 MG Omeprazole 40 MG No QD Omeprazole 40 MG Vitamin B 12 100 MCG Vitamin B 12 100 MCG No Vitamin B 12 100 MCG glipiZIDE 5 MG glipiZIDE 5 MG No BID glipiZIDE 5 MG Melatonin 5 MG Melatonin 5 MG No 1{table t_in_th e_eveni ng} QD Melatonin 5 MG metFORMIN HCl 850 MG metFORMIN HCl 850 MG No 1{table t_with_ a_meal} BID metFORMIN HCl 850 MG Gabapentin 100 MG Gabapentin 100 MG No 1{capsu le} BID Gabapentin 100 MG Magnesium Chloride 64 MG Magnesium Chloride 64 MG No 2{table ts} QD Magnesium Chloride 64 MG Melatonin 5 MG Melatonin 5 MG No 1{table t_in_th e_eveni ng} QD Melatonin 5 MG Eliquis 5 MG Eliquis 5 MG No Eliquis 5 MG Nitroglycer in 0.4 MG Nitroglycer in 0.4 MG No Nitroglyce rin 0.4 MG Losartan Potassium-H CTZ 100-25 MG Losartan Potassium-H CTZ 100-25 MG No Losartan Potassium- HCTZ 100-25 MG Lovastatin 40 MG Lovastatin 40 MG No QD Lovastatin 40 MG amLODIPine Besylate 5 MG amLODIPine Besylate 5 MG No 1{table t} QD amLODIPine Besylate 5 MG Eliquis 5 mg 5 mg Eliquis 5 mg 5 mg No Eliquis 5 mg 5 mg glipiZIDE 5 MG glipiZIDE 5 MG No glipiZIDE 5 MG metFORMIN HCl 850 MG metFORMIN HCl 850 MG No 1{table t_with_ a_meal} BID metFORMIN HCl 850 MG Magnesium Chloride 64 MG Magnesium Chloride 64 MG No 2{table ts} QD Magnesium Chloride 64 MG Omeprazole 40 MG Omeprazole 40 MG No QD Omeprazole 40 MG Aspirin 81 MG Aspirin 81 MG No 1{table t} QD Aspirin 81 MG Vitamin B 12 100 MCG Vitamin B 12 100 MCG No Vitamin B 12 100 MCG Melatonin 5 MG Melatonin 5 MG No 1{table t_in_th e_eveni ng} QD Melatonin 5 MG Gabapentin 100 MG Gabapentin 100 MG No 1{capsu le} BID Gabapentin 100 MG Eliquis 5 MG Eliquis 5 MG No Eliquis 5 MG traMADol HCl 50 MG traMADol HCl 50 MG No 1{table t_as_ne eded} QID traMADol HCl 50 MG Diphenoxyla te-Atropine 2.5-0.025 MG Diphenoxyla te-Atropine 2.5-0.025 MG No 1{table t_as_ne eded} QID Diphenoxyl ate-Atropi ne 2.5-0.025 MG amLODIPine Besylate 5 MG amLODIPine Besylate 5 MG No 1{table t} QD amLODIPine Besylate 5 MG Vitamin B 12 100 MCG Vitamin B 12 100 MCG No Vitamin B 12 100 MCG Omeprazole 40 MG Omeprazole 40 MG No QD Omeprazole 40 MG Carvedilol 6.25 MG Carvedilol 6.25 MG No 1{table t_with_ food} BID Carvedilol 6.25 MG Lovastatin 40 MG Lovastatin 40 MG No Lovastatin 40 MG Melatonin 5 MG Melatonin 5 MG No 1{table t_in_th e_eveni ng} QD Melatonin 5 MG metFORMIN HCl 850 MG metFORMIN HCl 850 MG No 1{table t_with_ a_meal} BID metFORMIN HCl 850 MG Magnesium Chloride 64 MG Magnesium Chloride 64 MG No 2{table ts} QD Magnesium Chloride 64 MG Losartan Potassium-H CTZ 100-25 MG Losartan Potassium-H CTZ 100-25 MG No Losartan Potassium- HCTZ 100-25 MG Aspirin 81 MG Aspirin 81 MG No 1{table t} QD Aspirin 81 MG traMADol HCl 50 MG traMADol HCl 50 MG No 1{table t_as_ne eded} QID traMADol HCl 50 MG Gabapentin 100 MG Gabapentin 100 MG No 1{capsu le} BID Gabapentin 100 MG Nitroglycer in 0.4 MG Nitroglycer in 0.4 MG No Nitroglyce rin 0.4 MG glipiZIDE 5 MG glipiZIDE 5 MG No glipiZIDE 5 MG Eliquis 5 MG Eliquis 5 MG No Eliquis 5 MG Diphenoxyla te-Atropine 2.5-0.025 MG Diphenoxyla te-Atropine 2.5-0.025 MG No 1{table t_as_ne eded} QID Diphenoxyl ate-Atropi ne 2.5-0.025 MG amLODIPine Besylate 5 MG amLODIPine Besylate 5 MG No 1{table t} QD amLODIPine Besylate 5 MG Vitamin B 12 100 MCG Vitamin B 12 100 MCG No Vitamin B 12 100 MCG Omeprazole 40 MG Omeprazole 40 MG No QD Omeprazole 40 MG Carvedilol 6.25 MG Carvedilol 6.25 MG No 1{table t_with_ food} BID Carvedilol 6.25 MG Lovastatin 40 MG Lovastatin 40 MG No Lovastatin 40 MG Melatonin 5 MG Melatonin 5 MG No 1{table t_in_th e_eveni ng} QD Melatonin 5 MG metFORMIN HCl 850 MG metFORMIN HCl 850 MG No 1{table t_with_ a_meal} BID metFORMIN HCl 850 MG Magnesium Chloride 64 MG Magnesium Chloride 64 MG No 2{table ts} QD Magnesium Chloride 64 MG Losartan Potassium-H CTZ 100-25 MG Losartan Potassium-H CTZ 100-25 MG No Losartan Potassium- HCTZ 100-25 MG Aspirin 81 MG Aspirin 81 MG No 1{table t} QD Aspirin 81 MG traMADol HCl 50 MG traMADol HCl 50 MG No 1{table t_as_ne eded} QID traMADol HCl 50 MG Gabapentin 100 MG Gabapentin 100 MG No 1{capsu le} BID Gabapentin 100 MG Nitroglycer in 0.4 MG Nitroglycer in 0.4 MG No Nitroglyce rin 0.4 MG glipiZIDE 5 MG glipiZIDE 5 MG No glipiZIDE 5 MG Eliquis 5 MG Eliquis 5 MG No Eliquis 5 MG Diphenoxyla te-Atropine 2.5-0.025 MG Diphenoxyla te-Atropine 2.5-0.025 MG No 1{table t_as_ne eded} QID Diphenoxyl ate-Atropi ne 2.5-0.025 MG Nitroglycer in 0.4 MG Nitroglycer in 0.4 MG No Nitroglyce rin 0.4 MG Gabapentin 100 MG Gabapentin 100 MG No 1{capsu le} BID Gabapentin 100 MG Losartan Potassium-H CTZ 100-25 MG Losartan Potassium-H CTZ 100-25 MG No Losartan Potassium- HCTZ 100-25 MG Levothyroxi ne Sodium 137 MCG Levothyroxi ne Sodium 137 MCG No Levothyrox ine Sodium 137 MCG glipiZIDE 5 MG glipiZIDE 5 MG No BID glipiZIDE 5 MG Diphenoxyla te-Atropine 2.5-0.025 MG Diphenoxyla te-Atropine 2.5-0.025 MG No 1{table t_as_ne eded} QID Diphenoxyl ate-Atropi ne 2.5-0.025 MG Omeprazole 40 MG Omeprazole 40 MG No Omeprazole 40 MG metFORMIN HCl 850 MG metFORMIN HCl 850 MG No metFORMIN HCl 850 MG Lovastatin 40 MG Lovastatin 40 MG No QD Lovastatin 40 MG Eliquis 5 MG Eliquis 5 MG No Eliquis 5 MG Magnesium Chloride 64 MG Magnesium Chloride 64 MG No 2{table ts} QD Magnesium Chloride 64 MG traMADol HCl 50 MG traMADol HCl 50 MG No 1{table t_as_ne eded} QID traMADol HCl 50 MG Vitamin B 12 100 MCG Vitamin B 12 100 MCG No Vitamin B 12 100 MCG Melatonin 5 MG Melatonin 5 MG No 1{table t_in_th e_eveni ng} QD Melatonin 5 MG Aspirin 81 MG Aspirin 81 MG No 1{table t} QD Aspirin 81 MG Nitroglycer in 0.4 MG Nitroglycer in 0.4 MG No Nitroglyce rin 0.4 MG Gabapentin 100 MG Gabapentin 100 MG No 1{capsu le} BID Gabapentin 100 MG Losartan Potassium-H CTZ 100-25 MG Losartan Potassium-H CTZ 100-25 MG No Losartan Potassium- HCTZ 100-25 MG Levothyroxi ne Sodium 137 MCG Levothyroxi ne Sodium 137 MCG No Levothyrox ine Sodium 137 MCG glipiZIDE 5 MG glipiZIDE 5 MG No BID glipiZIDE 5 MG Diphenoxyla te-Atropine 2.5-0.025 MG Diphenoxyla te-Atropine 2.5-0.025 MG No 1{table t_as_ne eded} QID Diphenoxyl ate-Atropi ne 2.5-0.025 MG Omeprazole 40 MG Omeprazole 40 MG No Omeprazole 40 MG metFORMIN HCl 850 MG metFORMIN HCl 850 MG No metFORMIN HCl 850 MG Lovastatin 40 MG Lovastatin 40 MG No QD Lovastatin 40 MG Eliquis 5 MG Eliquis 5 MG No Eliquis 5 MG Magnesium Chloride 64 MG Magnesium Chloride 64 MG No 2{table ts} QD Magnesium Chloride 64 MG traMADol HCl 50 MG traMADol HCl 50 MG No 1{table t_as_ne eded} QID traMADol HCl 50 MG Vitamin B 12 100 MCG Vitamin B 12 100 MCG No Vitamin B 12 100 MCG Melatonin 5 MG Melatonin 5 MG No 1{table t_in_th e_eveni ng} QD Melatonin 5 MG Aspirin 81 MG Aspirin 81 MG No 1{table t} QD Aspirin 81 MG Nitroglycer in 0.4 MG Nitroglycer in 0.4 MG No Nitroglyce rin 0.4 MG Gabapentin 100 MG Gabapentin 100 MG No 1{capsu le} BID Gabapentin 100 MG Losartan Potassium-H CTZ 100-25 MG Losartan Potassium-H CTZ 100-25 MG No Losartan Potassium- HCTZ 100-25 MG Levothyroxi ne Sodium 137 MCG Levothyroxi ne Sodium 137 MCG No Levothyrox ine Sodium 137 MCG glipiZIDE 5 MG glipiZIDE 5 MG No BID glipiZIDE 5 MG Diphenoxyla te-Atropine 2.5-0.025 MG Diphenoxyla te-Atropine 2.5-0.025 MG No 1{table t_as_ne eded} QID Diphenoxyl ate-Atropi ne 2.5-0.025 MG Omeprazole 40 MG Omeprazole 40 MG No Omeprazole 40 MG metFORMIN HCl 850 MG metFORMIN HCl 850 MG No metFORMIN HCl 850 MG Lovastatin 40 MG Lovastatin 40 MG No QD Lovastatin 40 MG Eliquis 5 MG Eliquis 5 MG No Eliquis 5 MG Levothyroxi ne Sodium 125 MCG Levothyroxi ne Sodium 125 MCG No QD Levothyrox ine Sodium 125 MCG Magnesium Chloride 64 MG Magnesium Chloride 64 MG No 2{table ts} QD Magnesium Chloride 64 MG traMADol HCl 50 MG traMADol HCl 50 MG No 1{table t_as_ne eded} QID traMADol HCl 50 MG Vitamin B 12 100 MCG Vitamin B 12 100 MCG No Vitamin B 12 100 MCG Melatonin 5 MG Melatonin 5 MG No 1{table t_in_th e_eveni ng} QD Melatonin 5 MG Aspirin 81 MG Aspirin 81 MG No 1{table t} QD Aspirin 81 MG DULoxetine HCl 30 MG DULoxetine HCl 30 MG No DULoxetine HCl 30 MG Gabapentin 100 MG Gabapentin 100 MG No 1{capsu le} BID Gabapentin 100 MG Losartan Potassium-H CTZ 100-25 MG Losartan Potassium-H CTZ 100-25 MG No Losartan Potassium- HCTZ 100-25 MG Carvedilol 6.25 MG Carvedilol 6.25 MG No Carvedilol 6.25 MG glipiZIDE 5 MG glipiZIDE 5 MG No BID glipiZIDE 5 MG Nitroglycer in 0.4 MG Nitroglycer in 0.4 MG No Nitroglyce rin 0.4 MG Levothyroxi ne Sodium 137 MCG Levothyroxi ne Sodium 137 MCG No QD Levothyrox ine Sodium 137 MCG Spironolact one 25 MG Spironolact one 25 MG No 1{table t} BID Spironolac tone 25 MG Diphenoxyla te-Atropine 2.5-0.025 MG Diphenoxyla te-Atropine 2.5-0.025 MG No 1{table t_as_ne eded} QID Diphenoxyl ate-Atropi ne 2.5-0.025 MG Omeprazole 40 MG Omeprazole 40 MG No Omeprazole 40 MG amLODIPine Besylate 5 MG amLODIPine Besylate 5 MG No amLODIPine Besylate 5 MG metFORMIN HCl 850 MG metFORMIN HCl 850 MG No metFORMIN HCl 850 MG Lovastatin 40 MG Lovastatin 40 MG No QD Lovastatin 40 MG Lancets - Lancets - No BID Lancets - Magnesium Chloride 64 MG Magnesium Chloride 64 MG No 2{table ts} QD Magnesium Chloride 64 MG traMADol HCl 50 MG traMADol HCl 50 MG No 1{table t_as_ne eded} QID traMADol HCl 50 MG Vitamin B 12 100 MCG Vitamin B 12 100 MCG No Vitamin B 12 100 MCG Eliquis 5 MG Eliquis 5 MG No Eliquis 5 MG Melatonin 5 MG Melatonin 5 MG No 1{table t_in_th e_eveni ng} QD Melatonin 5 MG Aspirin 81 MG Aspirin 81 MG No 1{table t} QD Aspirin 81 MG Furosemide 20 MG Furosemide 20 MG No 1{table t} QD Furosemide 20 MG DULoxetine HCl 30 MG DULoxetine HCl 30 MG No DULoxetine HCl 30 MG Gabapentin 100 MG Gabapentin 100 MG No 1{capsu le} BID Gabapentin 100 MG Losartan Potassium-H CTZ 100-25 MG Losartan Potassium-H CTZ 100-25 MG No Losartan Potassium- HCTZ 100-25 MG Carvedilol 6.25 MG Carvedilol 6.25 MG No Carvedilol 6.25 MG glipiZIDE 5 MG glipiZIDE 5 MG No BID glipiZIDE 5 MG Nitroglycer in 0.4 MG Nitroglycer in 0.4 MG No Nitroglyce rin 0.4 MG Levothyroxi ne Sodium 137 MCG Levothyroxi ne Sodium 137 MCG No QD Levothyrox ine Sodium 137 MCG Diphenoxyla te-Atropine 2.5-0.025 MG Diphenoxyla te-Atropine 2.5-0.025 MG No 1{table t_as_ne eded} QID Diphenoxyl ate-Atropi ne 2.5-0.025 MG Omeprazole 40 MG Omeprazole 40 MG No Omeprazole 40 MG amLODIPine Besylate 5 MG amLODIPine Besylate 5 MG No amLODIPine Besylate 5 MG metFORMIN HCl 850 MG metFORMIN HCl 850 MG No metFORMIN HCl 850 MG Lovastatin 40 MG Lovastatin 40 MG No QD Lovastatin 40 MG Lancets - Lancets - No BID Lancets - Magnesium Chloride 64 MG Magnesium Chloride 64 MG No 2{table ts} QD Magnesium Chloride 64 MG traMADol HCl 50 MG traMADol HCl 50 MG No 1{table t_as_ne eded} QID traMADol HCl 50 MG Vitamin B 12 100 MCG Vitamin B 12 100 MCG No Vitamin B 12 100 MCG Eliquis 5 MG Eliquis 5 MG No Eliquis 5 MG Melatonin 5 MG Melatonin 5 MG No 1{table t_in_th e_eveni ng} QD Melatonin 5 MG Aspirin 81 MG Aspirin 81 MG No 1{table t} QD Aspirin 81 MG DULoxetine HCl 30 MG DULoxetine HCl 30 MG No DULoxetine HCl 30 MG Gabapentin 100 MG Gabapentin 100 MG No 1{capsu le} BID Gabapentin 100 MG Losartan Potassium-H CTZ 100-25 MG Losartan Potassium-H CTZ 100-25 MG No Losartan Potassium- HCTZ 100-25 MG Carvedilol 6.25 MG Carvedilol 6.25 MG No Carvedilol 6.25 MG glipiZIDE 5 MG glipiZIDE 5 MG No BID glipiZIDE 5 MG Nitroglycer in 0.4 MG Nitroglycer in 0.4 MG No Nitroglyce rin 0.4 MG Levothyroxi ne Sodium 137 MCG Levothyroxi ne Sodium 137 MCG No QD Levothyrox ine Sodium 137 MCG Diphenoxyla te-Atropine 2.5-0.025 MG Diphenoxyla te-Atropine 2.5-0.025 MG No 1{table t_as_ne eded} QID Diphenoxyl ate-Atropi ne 2.5-0.025 MG Omeprazole 40 MG Omeprazole 40 MG No Omeprazole 40 MG amLODIPine Besylate 5 MG amLODIPine Besylate 5 MG No amLODIPine Besylate 5 MG metFORMIN HCl 850 MG metFORMIN HCl 850 MG No metFORMIN HCl 850 MG Lovastatin 40 MG Lovastatin 40 MG No QD Lovastatin 40 MG Lancets - Lancets - No BID Lancets - Magnesium Chloride 64 MG Magnesium Chloride 64 MG No 2{table ts} QD Magnesium Chloride 64 MG traMADol HCl 50 MG traMADol HCl 50 MG No 1{table t_as_ne eded} QID traMADol HCl 50 MG Vitamin B 12 100 MCG Vitamin B 12 100 MCG No Vitamin B 12 100 MCG Eliquis 5 MG Eliquis 5 MG No Eliquis 5 MG Melatonin 5 MG Melatonin 5 MG No 1{table t_in_th e_eveni ng} QD Melatonin 5 MG Aspirin 81 MG Aspirin 81 MG No 1{table t} QD Aspirin 81 MG NovoLOG 100 UNIT/ML NovoLOG 100 UNIT/ML No NovoLOG 100 UNIT/ML Colace 100 MG Colace 100 MG No 1{capsu le_as_n eeded} QD Colace 100 MG Gabapentin 300 MG Gabapentin 300 MG No 1{capsu le} TID Gabapentin 300 MG Jardiance 10 MG Jardiance 10 MG No 1{table t} QD Jardiance 10 MG Melatonin 5 MG Melatonin 5 MG No 1{table t_in_th e_eveni ng} QD Melatonin 5 MG Lisinopril 2.5 MG Lisinopril 2.5 MG No 1{table t} QD Lisinopril 2.5 MG Lactulose 10 GM/15ML Lactulose 10 GM/15ML No 15{ml_a s_neede d} QD Lactulose 10 GM/15ML Lomotil 2.5-0.025 MG Lomotil 2.5-0.025 MG No 1{table t_as_ne eded} QID Lomotil 2.5-0.025 MG Immunizations Ordered Immunization Name Filled Immunization Name Date Status Comments Source FluAD FluAD 2021-04-22 14:07:00 Completed [facility] FluAD FluAD 2021-04-22 14:07:00 Completed [facility] FluAD FluAD 2021-04-22 14:07:00 Completed [facility] FluAD FluAD 2021-04-22 14:07:00 Completed [facility] FluAD FluAD 2021-04-22 14:07:00 Completed [facility] FluAD FluAD 2021-04-22 14:07:00 Completed [facility] FluAD FluAD 2021-04-22 14:07:00 Completed [facility] FluAD FluAD 2021-04-22 14:07:00 Completed [facility] FluAD FluAD 2021-04-22 14:07:00 Completed [facility] FluAD FluAD 2021-04-22 14:07:00 Completed [facility] FluAD FluAD 2021-04-22 14:07:00 Completed [facility] FluAD FluAD 2021-04-22 14:07:00 Completed [facility] FluAD FluAD Unknown Com[facility] Vital Signs Vital Name Observation Time Observation Value Comments S ource Respiratory rate 2024-10-19 17:35:00 16 /min [facility] Systolic blood pressure 2024-10-19 17:00:00 110 mm[Hg] [facility] Diastolic blood pressure 2024-10-19 17:00:00 64 mm[Hg] [facility] Heart rate 2024-10-19 17:00:00 68 /min [facility] Respiratory rate 2024-10-19 17:00:00 22 /min [facility] Oxygen saturation in Arterial blood by Pulse oximetry 2024-10-19 17:00:00 96 /min [facility] Body temperature 2024-10-19 13:00:00 36.5 Jennifer [facility] Body height 2024-10-18 20:10:50 160 cm [facility] Body weight 2024-10-18 20:10:50 71.986 kg [facility] BMI 2024-10-18 20:10:50 28.11 kg/m2 [facility] Respiratory rate 2024-10-01 13:39:00 13 /min [facility] Heart rate 2024-10-01 13:38:00 54 [facility] Oxygen saturation in Arterial blood by Pulse oximetry 2024-10-01 13:38:00 94 /min [facility] Systolic blood pressure 2024-10-01 13:37:00 136 mm[Hg] [facility] Diastolic blood pressure 2024-10-01 13:37:00 75 mm[Hg] [facility] Body temperature 2024-10-01 13:37:00 36.67 Jennifer [facility] Body height 2024-10-01 11:54:00 162.6 cm [facility] Body weight 2024-10-01 11:54:00 72.576 kg [facility] BMI 2024-10-01 11:54:00 27.46 kg/m2 [facility] Heart rate 2024-10-01 12:59:00 58 /min [facility] Respiratory rate 2024-10-01 12:59:00 12 /min [facility] Oxygen saturation in Arterial blood by Pulse oximetry 2024-10-01 12:59:00 97 /min [facility] Systolic blood pressure 2024-10-01 12:57:00 93 mm[Hg] [facility] Diastolic blood pressure 2024-10-01 12:57:00 59 mm[Hg] [facility] Body temperature 2024-10-01 12:52:00 36.89 Jennifer [facility] Body height 2024-10-01 11:54:00 162.6 cm [facility] Body weight 2024-10-01 11:54:00 72.576 kg [facility] BMI 2024-10-01 11:54:00 27.46 kg/m2 [facility] Systolic blood pressure 2024-09-10 14:00:00 133 mm[Hg] [facility] Diastolic blood pressure 2024-09-10 14:00:00 76 mm[Hg] [facility] Heart rate 2024-09-10 14:00:00 60 /min [facility] Respiratory rate 2024-09-10 14:00:00 24 /min [facility] Oxygen saturation in Arterial blood by Pulse oximetry 2024-09-10 14:00:00 96 /min [facility] Body temperature 2024-09-10 13:40:00 36.39 Jennifer [facility] Body height 2024-09-10 13:00:00 162.6 cm [facility] Body weight 2024-09-10 13:00:00 70.761 kg [facility] BMI 2024-09-10 13:00:00 26.78 kg/m2 [facility] Heart rate 2024-09-10 13:59:00 63 /min [facility] Respiratory rate 2024-09-10 13:59:00 13 /min [facility] Oxygen saturation in Arterial blood by Pulse oximetry 2024-09-10 13:59:00 93 /min [facility] Systolic blood pressure 2024-09-10 13:55:00 141 mm[Hg] [facility] Diastolic blood pressure 2024-09-10 13:55:00 69 mm[Hg] [facility] Body temperature 2024-09-10 13:40:00 36.39 Jennifer [facility] Body height 2024-09-10 13:00:00 162.6 cm [facility] Body weight 2024-09-10 13:00:00 70.761 kg [facility] BMI 2024-09-10 13:00:00 26.78 kg/m2 [facility] Body height 2024-08-28 19:21:00 162.6 cm [facility] Body weight 2024-08-28 19:21:00 70.852 kg [facility] BMI 2024-08-28 19:21:00 26.81 kg/m2 [facility] Oxygen saturation in Arterial blood by Pulse oximetry 2024-08-28 19:21:00 100 /min [facility] Systolic blood pressure 2024-08-28 19:21:00 122 mm[Hg] [facility] Diastolic blood pressure 2024-08-28 19:21:00 77 mm[Hg] [facility] Heart rate 2024-08-28 19:21:00 63 /min [facility] Body temperature 2024-08-28 19:21:00 36.11 Jennifer [facility] Heart rate 2024-08-21 09:35:00 64 /min [facility] Body temperature 2024-08-21 09:35:00 36.94 Jennifer [facility] Oxygen saturation in Arterial blood by Pulse oximetry 2024-08-21 09:35:00 96 /min [facility] Systolic blood pressure 2024-08-21 09:00:00 142 mm[Hg] [facility] Diastolic blood pressure 2024-08-21 09:00:00 61 mm[Hg] [facility] Respiratory rate 2024-08-21 09:00:00 21 /min [facility] Body height 2024-08-21 06:55:00 162.6 cm [facility] Body weight 2024-08-21 06:55:00 68.04 kg [facility] BMI 2024-08-21 06:55:00 25.75 kg/m2 [facility] Systolic blood pressure 2024-08-13 14:29:00 133 mm[Hg] [facility] Diastolic blood pressure 2024-08-13 14:29:00 74 mm[Hg] [facility] Heart rate 2024-08-13 14:29:00 63 /min [facility] Respiratory rate 2024-08-13 14:29:00 9 /min [facility] Oxygen saturation in Arterial blood by Pulse oximetry 2024-08-13 14:29:00 97 /min [facility] Body temperature 2024-08-13 13:43:00 36.72 Jennifer [facility] Body height 2024-08-13 12:39:00 160 cm [facility] Body weight 2024-08-13 12:39:00 76.658 kg [facility] BMI 2024-08-13 12:39:00 29.94 kg/m2 [facility] Oxygen saturation in Arterial blood by Pulse oximetry 2024-08-13 13:59:00 95 /min [facility] Systolic blood pressure 2024-08-13 13:58:00 161 mm[Hg] [facility] Diastolic blood pressure 2024-08-13 13:58:00 83 mm[Hg] [facility] Heart rate 2024-08-13 13:58:00 62 /min [facility] Respiratory rate 2024-08-13 13:58:00 15 /min [facility] Body temperature 2024-08-13 13:43:00 36.72 Jennifer [facility] Body height 2024-08-13 12:39:00 160 cm [facility] Body weight 2024-08-13 12:39:00 76.658 kg [facility] BMI 2024-08-13 12:39:00 29.94 kg/m2 [facility] Heart rate 2024-07-18 10:33:00 77 /min [facility] Body temperature 2024-07-18 10:33:00 35.89 Jennifer [facility] Oxygen saturation in Arterial blood by Pulse oximetry 2024-07-18 10:33:00 96 /min [facility] Systolic blood pressure 2024-07-18 10:00:00 161 mm[Hg] [facility] Diastolic blood pressure 2024-07-18 10:00:00 72 mm[Hg] [facility] Respiratory rate 2024-07-18 10:00:00 18 /min [facility] Body height 2024-07-18 04:28:00 160 cm [facility] Body weight 2024-07-18 04:28:00 72.576 kg [facility] BMI 2024-07-18 04:28:00 28.34 kg/m2 [facility] Systolic blood pressure 2024-07-17 17:19:00 139 mm[Hg] [facility] Diastolic blood pressure 2024-07-17 17:19:00 78 mm[Hg] [facility] Heart rate 2024-07-17 17:19:00 71 /min [facility] Oxygen saturation in Arterial blood by Pulse oximetry 2024-07-17 17:19:00 98 /min [facility] Respiratory rate 2024-07-17 17:16:00 20 /min [facility] Body height 2024-07-17 17:16:00 160 cm [facility] Body weight 2024-07-17 17:16:00 72.485 kg [facility] BMI 2024-07-17 17:16:00 28.31 kg/m2 [facility] Systolic blood pressure 2024-07-10 04:40:00 146 mm[Hg] [facility] Diastolic blood pressure 2024-07-10 04:40:00 69 mm[Hg] [facility] Heart rate 2024-07-10 04:40:00 73 /min [facility] Body temperature 2024-07-10 04:40:00 36.89 Jennifer [facility] Respiratory rate 2024-07-10 04:40:00 16 /min [facility] Oxygen saturation in Arterial blood by Pulse oximetry 2024-07-10 04:40:00 94 /min [facility] Body height 2024-07-10 01:27:00 160 cm [facility] Body weight 2024-07-10 01:27:00 74.844 kg [facility] BMI 2024-07-10 01:27:00 29.23 kg/m2 [facility] Systolic blood pressure 2024-05-02 21:52:00 129 mm[Hg] [facility] Diastolic blood pressure 2024-05-02 21:52:00 85 mm[Hg] [facility] Heart rate 2024-05-02 21:52:00 89 /min [facility] Respiratory rate 2024-05-02 21:52:00 16 /min [facility] Oxygen saturation in Arterial blood by Pulse oximetry 2024-05-02 21:52:00 93 /min [facility] Body temperature 2024-05-02 20:06:00 36.11 Jennifer [facility] Body weight 2024-05-02 07:53:00 71.986 kg [facility] BMI 2024-05-02 07:53:00 28.11 kg/m2 [facility] Body height 2024-05-01 19:58:00 160 cm [facility] Body temperature 2024-02-09 01:00:00 37.28 Jennifer [facility] Systolic blood pressure 2024-02-09 00:30:00 138 mm[Hg] [facility] Diastolic blood pressure 2024-02-09 00:30:00 68 mm[Hg] [facility] Heart rate 2024-02-09 00:30:00 78 /min [facility] Respiratory rate 2024-02-09 00:30:00 12 /min [facility] Oxygen saturation in Arterial blood by Pulse oximetry 2024-02-09 00:30:00 95 /min [facility] Body height 2024-02-08 19:50:00 165.1 cm [facility] Body weight 2024-02-08 19:50:00 97.523 kg [facility] BMI 2024-02-08 19:50:00 35.78 kg/m2 [facility] height 2023-11-15 15:00:00 64 [in_i] Commo n [facility] weight 2023-11-15 15:00:00 175 [lb_av] Comm on [facility] temperature 2023-11-15 15:00:00 98.5 [degF] Com mon [facility] bmi 2023-11-15 15:00:00 30.04 kg/m2 Comm on [facility] blood pressure systolic 2023-11-15 15:00:00 134 mm[Hg] [facility] blood pressure diastolic 2023-11-15 15:00:00 86 mm[Hg] [facility] Systolic blood pressure 2023-06-17 17:28:00 166 mm[Hg] [facility] Diastolic blood pressure 2023-06-17 17:28:00 97 mm[Hg] [facility] Heart rate 2023-06-17 17:28:00 83 /min [facility] 2023-06-17 17:28:00 36.61 Jennifer [facility] Respiratory rate 2023-06-17 17:28:00 18 /min [facility] Oxygen saturation in Arterial blood by Pulse oximetry 2023-06-17 17:28:00 95 /min [facility] Body weight 2023-06-17 08:58:00 78.472 kg [facility] BMI 2023-06-17 08:58:00 30.65 kg/m2 [facility] Body height 2023-06-15 08:10:00 160 cm [facility] Systolic blood pressure 2023-02-16 06:00:00 132 mm[Hg] [facility] Diastolic blood pressure 2023-02-16 06:00:00 83 mm[Hg] [facility] Heart rate 2023-02-16 06:00:00 70 /min [facility] Respiratory rate 2023-02-16 06:00:00 18 /min [facility] Oxygen saturation in Arterial blood by Pulse oximetry 2023-02-16 06:00:00 96 /min [facility] Body temperature 2023-02-16 04:10:00 36.72 Jennifer [facility] Body height 2023-02-16 04:10:00 160 cm [facility] Body weight 2023-02-16 04:10:00 81.647 kg [facility] BMI 2023-02-16 04:10:00 31.89 kg/m2 [facility] Systolic blood pressure 2022-12-28 15:00:00 113 mm[Hg] [facility] Diastolic blood pressure 2022-12-28 15:00:00 62 mm[Hg] [facility] Heart rate 2022-12-28 15:00:00 68 /min [facility] Respiratory rate 2022-12-28 15:00:00 10 /min [facility] Oxygen saturation in Arterial blood by Pulse oximetry 2022-12-28 15:00:00 99 /min [facility] Body temperature 2022-12-28 13:29:34 36.17 Jennifer [facility] Body height 2022-12-28 13:04:00 162.6 cm [facility] Body weight 2022-12-28 13:04:00 71.668 kg [facility] BMI 2022-12-28 13:04:00 27.12 kg/m2 [facility] Systolic blood pressure 2022-07-30 21:10:00 131 mm[Hg] [facility] Diastolic blood pressure 2022-07-30 21:10:00 71 mm[Hg] [facility] Heart rate 2022-07-30 21:10:00 72 /min [facility] Body temperature 2022-07-30 21:10:00 36.44 Jennifer [facility] Respiratory rate 2022-07-30 21:10:00 16 /min [facility] Oxygen saturation in Arterial blood by Pulse oximetry 2022-07-30 21:10:00 98 /min [facility] Body weight 2022-07-30 09:18:00 71.986 kg [facility] BMI 2022-07-30 09:18:00 27.24 kg/m2 [facility] Body height 2022-07-29 07:44:00 162.6 cm [facility] Systolic blood pressure 2022-06-07 08:00:00 146 mm[Hg] [facility] Diastolic blood pressure 2022-06-07 08:00:00 90 mm[Hg] [facility] Heart rate 2022-06-07 08:00:00 64 /min [facility] Respiratory rate 2022-06-07 08:00:00 12 /min [facility] Oxygen saturation in Arterial blood by Pulse oximetry 2022-06-07 08:00:00 95 /min [facility] Body temperature 2022-06-07 07:12:00 36.56 Jennifer [facility] Body height 2022-06-07 07:12:00 160 cm [facility] Body weight 2022-06-07 07:12:00 68.04 kg [facility] BMI 2022-06-07 07:12:00 26.57 kg/m2 [facility] height 2022-05-25 08:30:00 64 [in_i] Commo n [facility] weight 2022-05-25 08:30:00 150 [lb_av] Comm on [facility] temperature 2022-05-25 08:30:00 96.4 [degF] Com mon [facility] bmi 2022-05-25 08:30:00 25.74 kg/m2 Comm on [facility] blood pressure systolic 2022-05-25 08:30:00 132 mm[Hg[facility] blood pressure diastolic 2022-05-25 08:30:00 84 mm[Hg] [facility] height 2022-04-26 09:30:00 64 [in_i] Commo n [facility] weight 2022-04-26 09:30:00 150 [lb_av] Comm on [facility] temperature 2022-04-26 09:30:00 97.9 [degF] Com mon [facility] bmi 2022-04-26 09:30:00 25.74 kg/m2 Comm on [facility] blood pressure systolic 2022-04-26 09:30:00 126 mm[Hg] Common [facility] blood pressure diastolic 2022-04-26 09:30:00 72 mm[Hg] Common [facility] height 2022-03-25 11:15:00 64 [in_i] Commo n [facility] weight 2022-03-25 11:15:00 150 [lb_av] Comm on [facility] temperature 2022-03-25 11:15:00 97.7 [degF] Com [facility] bmi 2022-03-25 11:15:00 25.74 kg/m2 Comm on [facility] blood pressure systolic 2022-03-25 11:15:00 134 mm[Hg] [facility] blood pressure diastolic 2022-03-25 11:15:00 82 mm[Hg] [facility] height 2022-01-25 13:00:00 64 [in_i] Commo n [facility] weight 2022-01-25 13:00:00 143.2 [lb_av] Co mmon [facility] bmi 2022-01-25 13:00:00 24.58 kg/m2 Comm on [facility] height 2021-10-19 09:40:00 64 [in_i] Commo n [facility] weight 2021-10-19 09:40:00 143.2 [lb_av] Co mmon [facility] temperature 2021-10-19 09:40:00 97.2 [degF] Com [facility] bmi 2021-10-19 09:40:00 24.58 kg/m2 Comm on [facility] oximetry 2021-10-19 09:40:00 97 % Commo n [facility] respiratory rate 2021-10-19 09:40:00 17 /min [facility] blood pressure systolic 2021-10-19 09:40:00 126 mm[Hg] Common [facility] blood pressure diastolic 2021-10-19 09:40:00 69 mm[Hg] Common [facility] height 2021-09-16 14:00:00 64 [in_i] Commo n [facility] weight 2021-09-16 14:00:00 151.7 [lb_av] Co mmon [facility] temperature 2021-09-16 14:00:00 97.1 [degF] Com [facility] bmi 2021-09-16 14:00:00 26.04 kg/m2 Comm on [facility] oximetry 2021-09-16 14:00:00 98 % Commo n [facility] respiratory rate 2021-09-16 14:00:00 17 /min [facility] blood pressure systolic 2021-09-16 14:00:00 132 mm[Hg] [facility] blood pressure diastolic 2021-09-16 14:00:00 75 mm[Hg] Common [facility] height 2021-05-28 13:00:00 64 [in_i] Commo n [facility] weight 2021-05-28 13:00:00 154.1 [lb_av] Co mmon [facility] temperature 2021-05-28 13:00:00 97.2 [degF] Com mon [facility] bmi 2021-05-28 13:00:00 26.45 kg/m2 Comm on [facility] oximetry 2021-05-28 13:00:00 97 % Commo n [facility] respiratory rate 2021-05-28 13:00:00 16 /min [facility] blood pressure systolic 2021-05-28 13:00:00 135 mm[Hg] Common [facility] blood pressure diastolic 2021-05-28 13:00:00 76 mm[Hg] [facility] height 2021-04-22 14:50:00 64 [in_i] Commo n [facility] weight 2021-04-22 14:50:00 149.3 [lb_av] Co mmon [facility] temperature 2021-04-22 14:50:00 97.3 [degF] Com [facility] bmi 2021-04-22 14:50:00 25.62 kg/m2 Comm on [facility] oximetry 2021-04-22 14:50:00 95 % Commo n [facility] respiratory rate 2021-04-22 14:50:00 17 /min [facility] blood pressure systolic 2021-04-22 14:50:00 132 mm[Hg] [facility] blood pressure diastolic 2021-04-22 14:50:00 67 mm[Hg] [facility] Procedures Procedure Date / Time Performed Performing Clinician Source POCT GLUCOSE (AUTOMATED) 2024-10-22 20:19:00 Josephine López [facility] POCT GLUCOSE (AUTOMATED) 2024-10-22 19:27:00 Josephine López [facility] POCT GLUCOSE (AUTOMATED) 2024-10-22 18:50:00 Josephine López [facility] POCT GLUCOSE (AUTOMATED) 2024-10-22 17:44:00 Josephine López [facility] POCT GLUCOSE (AUTOMATED) 2024-10-22 14:23:00 Josephine López [facility] MAGNESIUM 2024-10-22 10:05:00 Beto Lira [facility] BASIC METABOLIC PANEL (NA, K, CL, CO2, GLUCOSE, BUN, CREATININE, CA) 2024-10-22 10:05:00 Pankaj [facility] CBC WITH DIFF 2024-10-22 10:05:00 Pankaj [facility] POCT GLUCOSE (AUTOMATED) 2024-10-22 01:57:00 Josephine López [facility] POCT GLUCOSE (AUTOMATED) 2024-10-21 21:36:00 Josephine López [facility] POCT GLUCOSE (AUTOMATED) 2024-10-21 16:31:00 Maye Fox [facility] CBC WITHOUT DIFF 2024-10-21 14:27:00 Margarita Welsh [facility] POCT GLUCOSE (AUTOMATED) 2024-10-21 12:32:00 Maye Fox [facility] PREPARE PACKED RBC 2024-10-21 11:06:22 Kallie Arriaza [facility] HB ABO GROUPING 2024-10-21 10:20:00 Parrish Arriaza [facility] PHOSPHORUS 2024-10-21 09:30:00 Parrish Arriaza [facility] MAGNESIUM 2024-10-21 09:30:00 Mala Welsh [facility] BASIC METABOLIC PANEL (NA, K, CL, CO2, GLUCOSE, BUN, CREATININE, CA) 2024-10-21 09:30:00 Yony Welsh [facility] CBC WITH DIFF 2024-10-21 09:30:00 Parrish Arriaza [facility] POCT GLUCOSE (AUTOMATED) 2024-10-21 03:32:00 Maye Fox [facility] POCT GLUCOSE (AUTOMATED) 2024-10-21 01:04:00 Maye Fox [facility] POCT GLUCOSE (AUTOMATED) 2024-10-20 21:54:00 Maye Fox [facility] POCT GLUCOSE (AUTOMATED) 2024-10-20 19:10:00 Maye Fox [facility] BASIC METABOLIC PANEL (NA, K, CL, CO2, GLUCOSE, BUN, CREATININE, CA) 2024-10-20 17:54:00 Parrish Arriaza [facility] CBC WITH DIFF 2024-10-20 17:54:00 [facility] 2024-10-20 16:14:00 Maye Fox [facility] POCT GLUCOSE (AUTOMATED) 2024-10-20 12:54:00 Maye Fox [facility] POCT GLUCOSE (AUTOMATED) 2024-10-20 12:18:00 Maye Fox [facility] PHOSPHORUS 2024-10-20 07:54:00 Parrish Arriaza [facility] MAGNESIUM 2024-10-20 07:54:00 Parrish Arriaza [facility] BASIC METABOLIC PANEL (NA, K, CL, CO2, GLUCOSE, BUN, CREATININE, CA) 2024-10-20 07:54:00 Parrish Arriaza [facility] CBC WITH DIFF 2024-10-20 07:54:00 Parrish Arriaza Un [facility] POCT GLUCOSE (AUTOMATED) 2024-10-20 07:53:00 Maye Fox [facility] POCT GLUCOSE (AUTOMATED) 2024-10-20 01:49:00 Maye Fox [facility] POCT GLUCOSE (AUTOMATED) 2024-10-20 01:44:00 Maye Fox [facility] POCT GLUCOSE (AUTOMATED) 2024-10-19 23:04:00 Maye Fox [facility] XR FEMUR 2 VW LEFT 2024-10-19 22:29:26 Misael Kong [facility] XR FOOT 3+ VW LEFT 2024-10-19 22:29:26 Kallie Arriaza [facility] PHOSPHORUS 2024-10-19 20:08:00 aPtrica Levy Luma [facility] MAGNESIUM 2024-10-19 20:08:00 Patrica Levy [facility] BASIC METABOLIC PANEL (NA, K, CL, CO2, GLUCOSE, BUN, CREATININE, CA) 2024-10-19 20:08:00 Patrica Chirinos Luma [facility] CBC WITH DIFF 2024-10-19 20:08:00 Patrica Levy Luma [facility] FL TIME OR (NON-REPORTABLE) 2024-10-19 19:25:27 Maye Prather [facility] INTUBATION 2024-10-19 17:49:00 Marbin Mattson [facility] [address] - [place] INTER/CA/SUBTRCHNTRIC FEM FX IMED IMPLTSCREW 2024-10-19 17:18:00 Maye Prather [facility] NERVE BLOCK 2024-10-19 16:57:33 Emiliano Hammonds [facility] XR CHEST 1 VW 2024-10-19 14:14:54 [facility]ATED) 2024-10-19 14:06:00 Maye Fox [facility] TRANSTHORACIC ECHO (TTE) COMPLETE W/ CONTRAST 2024-10-19 13:04:59 [facility] MRSA / MSSA SCREEN BY LONI MAYA 2024-10-19 11:17:00 Marlon Penn [facility] PHOSPHORUS 2024-10-19 08:45:00 Hector Elizabeth [facility] MAGNESIUM 2024-10-19 08:45:00 Clara Hector [facility] BASIC METABOLIC PANEL (NA, K, CL, CO2, GLUCOSE, BUN, CREATININE, CA) 2024-10-19 08:45:00 [facility] CBC WITH DIFF 2024-10-19 08:45:00 [facility] N-TERMINAL PRO-BNP 2024-10-19 08:45:00 Kallie Arriaza [facility] XR FEMUR 2 VW RIGHT 2024-10-19 05:38:00 Dionne Penn [facility] GLYCOSYLATED HEMOGLOBIN (A1C) 2024-10-19 04:42:00 [facility] URINALYSIS WITH REFLEX TO URINE CULTURE 2024-10-19 04:42:00 [facility] URINE CULTURE 2024-10-19 04:42:00 [facility] CT HIP LEFT WO CONTRAST 2024-10-19 04:14:27 Marlon Watson i [facility] XR FEMUR 2 VW LEFT 2024-10-19 03:47:00 Robbie Penn [facility] XR HIPS 2 VW LEFT 2024-10-19 03:47:00 Jaleel Penn [facility] ABORH CONFIRMATION (LAB ONLY) 2024-10-18 23:30:00 Soumya Gonzalez [facility] HB ECG ROUTINE & RHYTHM STRIP 2024-10-18 22:11:59 Soumya Gonzalez [facility] CT TRAUMA HEAD WO CONTRAST 2024-10-18 22:10:39 Soumya Gonzalez [facility] CT TRAUMA CERVICAL SPINE WO CONTRAST 2024-10-18 22:10:39 Soumya Gonzalez [facility] COMP. METABOLIC PANEL (19040) 2024-10-18 22:02:00 Soumya Gonzalez [facility] CBC WITH DIFF 2024-10-18 22:02:00 Soumya Gonzalez [facility] PROTHROMBIN TIME / INR 2024-10-18 22:02:00 Carrol Gonzalez [facility] ACTIVATED PARTIAL THRMPLAS BUBBA 2024-10-18 22:02:00 Soumya Gonzalez [facility] HB ABO GROUPING 2024-10-18 22:02:00 Soumya Gonzalez [facility] XR ANKLE 3+ VW RIGHT 2024-10-18 21:10:00 Maximo Gonzalez [facility] XR KNEE <3 VW RIGHT 2024-10-18 21:10:00 Susan Gonzalez ra [facility] XR ANKLE 3+ VW LEFT 2024-10-18 21:09:17 Susan Gonzalez ra [facility] XR PELVIS <3 VW 2024-10-18 21:09:17 Soumya Gonzalez [facility] XR TIBIA FIBULA 2 VW RIGHT 2024-10-18 21:09:17 Soumya Gonzalez [facility] CECY AURIS SURVEILLANCE BY PCR (INFECTION CONTROL PURPOSES) 2024-10-18 20:36:00 Soumya Goznalez [facility] FL TIME OR (NON-REPORTABLE) 2024-10-01 12:45:00 Yamil Diamond [facility] [place] TIME OR (NON-REPORTABLE) 2024-10-01 12:45:00 Yamil Diamond [facility] [address] - [place] NJX DX/THER SBST INTRLMNR CRV/THRC W/IMG GDN 2024-10-01 12:20:00 Yamil Diamond [facility] POCT GLUCOSE (AUTOMATED) 2024-10-01 12:11:00 Yamil Diamond [facility] POCT GLUCOSE (AUTOMATED) 2024-10-01 12:11:00 Yamil Diamond [facility] FL TIME OR (NON-REPORTABLE) 2024-09-10 13:40:00 Yamil Diamond [facility] FL TIME OR (NON-REPORTABLE) 2024-09-10 13:40:00 Yamil Diamond [facility] [address] - [place] NJX DX/THER SBST INTRLMNR CRV/THRC W/IMG GDN 2024-09-10 13:15:00 Yamil Diamond [facility] POCT GLUCOSE (AUTOMATED) 2024-09-10 13:08:00 Yamil Diamond [facility] POCT GLUCOSE (AUTOMATED) 2024-09-10 13:08:00 Yamil Diamond [facility] URINALYSIS 2024-08-21 07:56:00 Kalina Valadez [facility] FL TIME OR (NON-REPORTABLE) 2024-08-13 13:40:00 Yamil Diamond [facility] FL TIME OR (NON-REPORTABLE) 2024-08-13 13:40:00 Yamil Diamond [facility] [address] - [place] NJX DX/THER SBST INTRLMNR CRV/THRC W/IMG GDN 2024-08-13 13:18:00 Yamil Diamond [facility] POCT GLUCOSE (AUTOMATED) 2024-08-13 12:47:00 Yamil Diamond [facility] POCT GLUCOSE (AUTOMATED) 2024-08-13 12:47:00 Yamil Diamond [facility] EKG-12 LEAD 2024-07-10 03:45:47 Glynn Gates [facility] XR CHEST 1 VW 2024-07-10 02:19:57 Glynn Gates [facility] XR ANKLE <3 VW LEFT 2024-07-10 02:19:57 Glynn Gates [facility] XR ELBOW <3 VW LEFT 2024-07-10 02:19:57 Glynn Gates [facility] XR HIPS 3 VW LEFT 2024-07-10 02:19:57 Glynn Gates [facility] XR KNEE 3 VW LEFT 2024-07-10 02:19:57 Glynn Gates U [facility] XR SHOULDER 2+ VW LEFT 2024-07-10 02:19:57 Salome Gates [facility] MR THORACIC SPINE WO CONTRAST 2024-05-17 21:40:00 Yamil Diamond [facility] MR LUMBAR SPINE WO CONTRAST 2024-05-17 21:40:00 Yamil Diamond [facility] POCT GLUCOSE (AUTOMATED) 2024-05-02 21:33:00 Gopal Wells [facility] POCT GLUCOSE (AUTOMATED) 2024-05-02 16:32:00 Gopal Wells [facility] TRANSTHORACIC ECHO (TTE) COMPLETE W/ CONTRAST 2024-05-02 13:55:00 Hazel Wells [facility] POCT GLUCOSE (AUTOMATED) 2024-05-02 12:42:00 Gopal Wells [facility] COMP. METABOLIC PANEL (15751) 2024-05-02 08:32:00 Angela Okeefe [facility] CBC WITH DIFF 2024-05-02 08:32:00 Angela Okeefe [facility] GLYCOSYLATED HEMOGLOBIN (A1C) 2024-05-02 08:32:00 Angela Okeefe [facility] CECY AURIS SURVEILLANCE BY PCR (INFECTION CONTROL PURPOSES) 2024-05-02 01:48:00 Angela Okeefe [facility] POCT GLUCOSE (AUTOMATED) 2024-05-02 00:24:00 Gopal Wells [facility] TROPONIN I 2024-05-01 23:43:00 Hazel Wells [facility] POCT GLUCOSE (AUTOMATED) 2024-05-01 22:50:00 Maxi Zarate [facility] XR CHEST 1 VW 2024-05-01 20:24:41 Lynette Zarate [facility] TROPONIN I 2024-05-01 20:22:00 Lynette Zarate [facility] COMP. METABOLIC PANEL (23522) 2024-05-01 20:22:00 Lynette Zarate [facility] CBC WITH DIFF 2024-05-01 20:22:00 Lynette Zarate [facility] N-TERMINAL PRO-BNP 2024-05-01 20:22:00 Lynette Zarate [facility] HB ECG ROUTINE & RHYTHM STRIP 2024-05-01 19:58:40 Lynette Zarate [facility] XR LUMBAR SPINE 2 VW 2024-04-02 18:48:16 Bonifacio [facility] XR SPINE THORACIC 2 VW 2024-04-02 18:48:[address] [facility] [address] CERVICAL SPINE WO CONTRAST 2024-02-08 22:23:26 Rosalva Gibbons [facility] CT HEAD WO CONTRAST 2024-02-08 22:23:26 Aliyah Gibbons [facility] XR CHEST 2 VW 2024-02-08 21:53:00 [facility]W RIGHT 2024-02-08 21:53:00 Aliyah Gibbons [facility] XR HIPS 3 VW RIGHT 2024-02-08 21:53:00 Rosalva Gibbons [facility] LIPASE 2024-02-08 21:02:00 Edwige [facility] TROPONIN I 2024-02-08 21:02:00 [facility] COMP. METABOLIC PANEL ([id number]) 2024-02-08 21:02:00 Shara Gibbonsherine [facility] CBC WITH DIFF 2024-02-08 21:02:00 Shara Gibbonsherine [facility] HB ECG ROUTINE & RHYTHM STRIP 2024-02-08 20:58:11 Edwige [facility] POCT GLUCOSE (AUTOMATED) 2023-06-17 17:45:00 Gopal Wells [facility] POCT GLUCOSE (AUTOMATED) 2023-06-17 13:57:00 Gopal Wells [facility] MAGNESIUM 2023-06-17 09:19:00 Mohan Jacob [facility] BASIC METABOLIC PANEL (NA, K, CL, CO2, GLUCOSE, BUN, CREATININE, CA) 2023-06-17 09:19:00 Mohan Jacob [facility] CBC WITH DIFF 2023-06-17 09:19:00 Mohan Jacob [facility] N-TERMINAL PRO-BNP 2023-06-17 09:19:00 Josselin Brooke [facility] POCT GLUCOSE (AUTOMATED) 2023-06-17 08:58:00 [facility] POCT GLUCOSE (AUTOMATED) 2023-06-17 02:14:00 Kvng, D avid [facility] POCT GLUCOSE (AUTOMATED) 2023-06-16 22:47:00 Gopal Wells [facility] POCT GLUCOSE (AUTOMATED) 2023-06-16 17:52:00 Gopal Wells [facility] POCT GLUCOSE (AUTOMATED) 2023-06-16 13:43:00 Gopal Wells [facility] MAGNESIUM 2023-06-16 10:06:00 Cady Jacob U [facility] THYROID STIMULATING HORMONE 2023-06-16 10:06:00 Cady Jacob [facility] BASIC METABOLIC PANEL (NA, K, CL, CO2, GLUCOSE, BUN, CREATININE, CA) 2023-06-16 10:06:00 Cady Jacob [facility] CBC WITH DIFF 2023-06-16 10:06:00 Cady Jacob [facility] POCT GLUCOSE (AUTOMATED) 2023-06-16 03:10:00 Gopal Wells [facility] POCT GLUCOSE (AUTOMATED) 2023-06-15 23:03:00 Gopal Wells [facility] POCT GLUCOSE (AUTOMATED) 2023-06-15 17:39:00 [facility] TRANSTHORACIC ECHO (TTE) COMPLETE W/ CONTRAST 2023-06-15 13:59:00 Angela Okeefe [facility] TROPONIN I 2023-06-15 11:13:00 Angela Okeefe [facility] GLYCOSYLATED HEMOGLOBIN (A1C) 2023-06-15 11:13:00 Angela Okeefe [facility] TROPONIN I 2023-06-15 06:47:00 Angela Okeefe [facility] LIPID PANEL ([id number])(TOTAL CHOLESTEROL, TRIGLYCERIDES, HDL) 2023-06-15 06:47:00 Angela Okeefe [facility] CECY AURIS SURVEILLANCE BY PCR (INFECTION CONTROL PURPOSES) 2023-06-15 06:47:00 Angela Okeefe [facility] XR CHEST 1 VW 2023-06-15 03:40:30 Ali, Amir [facility] COVID-19 (ID NOW RAPID TESTING) 2023-06-15 03:32:00 [facility] LAB ONLY COVID INTERPRETATION 2023-06-15 03:32:00 Alli Del Castillo [facility] LIPASE 2023-06-15 03:25:00 Alli Del Castillo [facility] TROPONIN I 2023-06-15 03:25:00 Alli Del Castillo [facility] COMP. METABOLIC PANEL ([id number]) 2023-06-15 03:25:00 [facility] CBC WITH DIFF 2023-06-15 03:25:00 Alli Del Castillo [facility] D-DIMER 2023-06-15 03:25:00 [facility] N-TERMINAL PRO-BNP 2023-06-15 03:25:00 Alli Del Castillo [facility] HB ECG ROUTINE & RHYTHM STRIP 2023-06-15 03:11:50 [facility] CT THORACIC SPINE WO CONTRAST 2023-02-16 05:15:00 Reid Spicer [facility] EKG-12 LEAD 2022-12-28 15:25:18 Glynn Gates [facility] TROPONIN I 2022-12-28 14:28:00 Glynn Gates [facility] URINALYSIS 2022-12-28 13:21:00 Glynn Gates [facility] XR CHEST 1 VW 2022-12-28 13:17:51 Glynn Gates [facility] XR SHOULDER 2+ VW LEFT 2022-12-28 13:17:51 Salome Gates [facility] LIPASE 2022-12-28 13:12:00 Glynn Gates [facility] TROPONIN I 2022-12-28 13:12:00 Glynn Gates [facility] COMP. METABOLIC PANEL (15936) 2022-12-28 13:12:00 Glynn Gates [facility] CBC WITH DIFF 2022-12-28 13:12:00 Glynn Gates [facility] POCT GLUCOSE (AUTOMATED) 2022-07-30 17:28:[address] [facility] POCT GLUCOSE (AUTOMATED) 2022-07-30 13:27:[address] [facility] TROPONIN I 2022-07-30 10:14:00 Eleonora isidro [facility] COMP. METABOLIC PANEL (55916) 2022-07-30 10:14:[address] [facility] CBC WITH DIFF 2022-07-30 10:14:00 [facility] N-TERMINAL PRO-BNP 2022-07-30 10:14:[address] [facility] TROPONIN I 2022-07-30 05:54:00 Eleonora [facility] POCT GLUCOSE (AUTOMATED) 2022-07-30 04:01:[address] [facility] TROPONIN I 2022-07-30 02:12:00 Eleonora [facility] LACTIC ACID WHOLE BLOOD 2022-07-30 02:12:00 Alcira Dang [facility] POCT GLUCOSE (AUTOMATED) 2022-07-29 22:20:[address] [facility] TRANSTHORACIC ECHO (TTE) COMPLETE 2022-07-29 19:35:[address] [facility] POCT GLUCOSE (AUTOMATED) 2022-07-29 17:38:[address] [facility] POCT GLUCOSE (AUTOMATED) 2022-07-29 14:16:[address] [facility] TROPONIN I 2022-07-29 11:01:00 Eleonora isidro [facility] COMP. METABOLIC PANEL ([id number]) 2022-07-29 11:01:[address] [facility] N-TERMINAL PRO-BNP 2022-07-29 11:01:[address] [facility] PROCALCITONIN 2022-07-29 11:01:00 Fannie Dang [facility] AC PANEL 21 + LACTIC ACID 2022-07-29 11:01:00 Fannie Dang [facility] VITAMIN B12, LEVEL 2022-07-29 11:00:00 Fannie Dang [facility] FOLATE 2022-07-29 11:00:00 Fannie Dang [facility] PROTHROMBIN TIME / INR 2022-07-29 11:00:00 Bull Dang [facility] D-DIMER 2022-07-29 11:00:00 Fannie Dang [facility] VITAMIN D, 25-OH 2022-07-29 11:00:00 [facility]AT[facility] KINASE 2022-07-29 10:59:00 Fannie Dang [facility] TROPONIN I 2022-07-29 10:59:00 Fannie Dang [facility] URINALYSIS 2022-07-29 05:25:00 [facility] SODIUM, URINE RANDOM 2022-07-29 05:25:00 Jake Dang [facility] PROTEIN CREAT RATIO URINE RANDOM 2022-07-29 05:25:00 Fannie Dang [facility] XR SHOULDER 2+ VW LEFT 2022-07-29 04:58:51 Ladarius Ramsey [facility] XR CHEST 1 VW 2022-07-29 04:41:00 Ladarius Ramsey [facility] HB ECG ROUTINE & RHYTHM STRIP 2022-07-29 04:35:34 Ladarius Ramsey [facility] PHOSPHORUS 2022-07-29 04:30:00 Fannie Dang [facility] URIC ACID 2022-07-29 04:30:00 Fannie Dang [facility] MAGNESIUM 2022-07-29 04:30:00 Ladarius Ramsey [facility] FERRITIN SERUM 2022-07-29 04:30:00 Fannie Dang [facility] TROPONIN I 2022-07-29 04:30:00 Ladarius Ramsey [facility] THYROID STIMULATING HORMONE 2022-07-29 04:30:00 Fannie Dang [facility] COMP. METABOLIC PANEL (58067) 2022-07-29 04:30:00 Ladarius Ramsey [facility] LIPID PANEL (05066)(TOTAL CHOLESTEROL, TRIGLYCERIDES, HDL) 2022-07-29 04:30:00 Fannie Dang [facility] IRON PANEL 2022-07-29 04:30:00 Fannie Dang [facility] SEDIMENTATION RATE 2022-07-29 04:30:00 Eleonora isidro [facility] CBC WITH DIFF 2022-07-29 04:30:00 Ladarius Ramsey [facility] GLYCOSYLATED HEMOGLOBIN (A1C) 2022-07-29 04:30:00 Fannie Dang [facility] N-TERMINAL PRO-BNP 2022-07-29 04:30:00 Ladarius Ramsey [facility] CECY AURIS SURVEILLANCE BY PCR (INFECTION CONTROL PURPOSES) 2022-07-29 04:30:00 Ladarius Ramsey [facility] EXTERNAL PROVIDER RECORDS 2022-07-04 06:01:00 Do ctor Unassigned, [place] [facility] RAPID INFLUENZA A/B 2022-06-07 07:16:00 Susan Gonzalez ra [facility] COVID-19 (ID NOW RAPID TESTING) 2022-06-07 07:16:00 Soumya Gonzalez [facility] Encounters Start Date/Time End Date/Time Encounter Type Admission Type Attending Clinicians Care Facility Care Department Encounter ID Source 2024-10-18 14:53:00 Inpatient X DWAYNE LÓPEZ [facility] [id number] [facility] 2024-04-23 08:58:00 Outpatient Shaun Velasquez [facility] [id number] [facility] 2023-11-15 15:19:00 Outpatient Velasquez[facility] [id number] [facility] 2023-11-14 11:18:01 [facility] [id number] [facility] 2022-07-19 10:30:02 [facility] [id number] [facility] 2022-03-25 11:39:02 [facility] [id number] [facility] 2022-03-12 08:48:05 Outpatient 3 [id number] [facility] OTH [id number] [facility] 2022-03-10 08:07:51 Outpatient 3 [id number] ENC[facility] REF [id number] [facility] 2021-10-19 09:26:01 [facility] [id number] [facility] 2021-09-09 11:11:01 [facility] [id number] [facility] 2021-08-05 14:00:46 [facility] [id number] [facility] 2021-08-05 14:00:15 [facility] [id number] [facility] 2021-08-05 13:59:27 [facility] [id number] [facility] 2021-08-05 13:44:29 [facility] [id number] [facility] 2021-08-05 13:35:22 [facility] [id number] [facility] 2024-10-19 12:33:00 2024-10-19 14:59:00 Anesthesia Event Mariella Anders Robert Anthony [facility] [id number] [place] [facility] 2024-10-19 12:24:00 2024-10-19 14:58:00 Surgery Maye Prather [facility] 1.2.840.114 350.1.13.10 4.2.7.2.686 [id number] [facility] 2024-10-19 11:34:00 2024-10-19 11:53:00 Anesthesia Event Juanito Enriquez Ehsan [facility] 1.2.840.114 350.1.13.10 4.2.7.2.686 [id number] [facility] 2024-10-01 06:34:00 2024-10-01 08:51:00 Outpatient R YAMIL DIAMOND [facility] [id number] [facility] 2024-10-01 06:34:00 2024-10-01 08:51:00 Hospital Encounter Yamil Diamond [facility] 1.2.840.114 350.1.13.10 4.2.7.2.686 [id number] [id number] [facility] 2024-10-01 07:25:00 2024-10-01 07:59:00 Surgery Yamil Diamond [facility] 1.2.840.114 350.1.13.10 4.2.7.2.686 [id number] [facility] 2024-09-10 06:46:00 2024-09-10 08:23:00 Hospital Encounter Yamil Diamond [facility] 1.2.840.114 350.1.13.10 4.2.7.2.686 [id number] [facility] 2024-09-10 06:46:00 2024-09-10 08:23:00 Outpatient R YAMIL DIAMOND [facility] [id number] [facility] 2024-09-10 07:25:00 2024-09-10 07:59:00 Surgery Yamil Diamond [facility] 1.2.840.114 350.1.13.10 4.2.7.2.686 [id number] [facility] 2024-08-29 00:00:00 2024-08-31 13:44:24 [facility] 1.2.840.114 350.1.13.10 4.2.7.2.686 [id number] [facility] 2024-08-28 13:45:00 2024-08-28 14:00:00 [employer] Visit 2, Adc Lab Jacob Geraldo 2, Adc Lab [facility] 1.2.840.114 350.1.13.10 4.2.7.2.686 [id number] [facility] 2024-08-28 13:45:00 2024-08-28 13:45:00 Outpatient R JACOBHAYDESATHISH [facility] [id number] [facility] 2024-08-28 13:20:00 2024-08-28 13:40:00 [facility] 1.2.840.114 350.1.13.10 4.2.7.2.686 [id number] [facility] 2024-08-21 00:55:00 2024-08-21 03:36:00 Emergency X KALINA VALADEZ WAKILI [facility] [id number] [facility] 2024-08-21 00:55:00 2024-08-21 03:36:00 Emergency Kalina Valadez [facility] 1.2.840.114 350.1.13.10 4.2.7.2.686 [id number] [facility] 2024-08-14 00:00:00 2024-08-14 13:18:18 Telephone Velasquez Burgess [facility] [employer] [facility] 1.2.840.114 350.1.13.10 4.2.7.2.686 [id number] [facility] 2024-08-13 06:29:00 2024-08-13 08:40:00 Outpatient R DARA [facility] [id number] [facility] 2024-08-13 06:29:00 2024-08-13 08:40:00 Hospital Encounter Yamil Diamond [facility] 1.2.840.114 350.1.13.10 4.2.7.2.686 [id number] [facility] 2024-08-13 07:25:00 2024-08-13 07:59:00 Surgery Yamil Diamond [facility] 1.2.840.114 350.1.13.10 4.2.7.2.686 [id number] [facility] 2024-07-23 00:00:00 2024-07-23 16:10:31 Telephone Geraldo James [facility] [employer] 1.2.840.114 350.1.13.10 4.2.7.2.686 [id number] [facility] 2024-07-17 22:25:00 2024-07-18 04:44:00 Emergency X AUFDERNUVIA , ENRIQUE DENT [facility] [id number] [facility] 2024-07-17 22:25:00 2024-07-18 04:44:00 Emergency Enrique Pugh [facility] 1.2840.114 350.1.13.10 4.2.7.2.686 [id number] [facility] 2024-07-17 11:00:00 2024-07-17 11:36:48 Outpatient R JACOB BRYN [facility] [id number] [facility] 2024-07-17 11:00:00 2024-07-17 11:36:48 [facility] 1.2.840.114 350.1.13.10 4.2.7.2.686 [id number] [facility] 2024-07-09 19:23:00 2024-07-09 22:41:00 Emergency X VASUT, GLYNN GATES, GLYNN [facility] [id number] [facility] 2024-07-09 19:23:00 2024-07-09 22:41:00 Emergency VasutGlynn J [facility] 1.2840.114 350.1.13.10 4.2.7.2.686 [id number] [facility] 2024-05-22 14:30:00 2024-05-22 14:30:00 Outpatient R [facility]CI [facility] [id number] [facility] 2024 00:00:00 2024 15:03:33 [facility] 1.2.840.114 350.1.13.10 4.2.7.2.686 [id number] [facility] 2024-05-17 13:14:30 2024-05-17 23:59:00 Hospital Encounter Yamil Diamond [facility] 1.2.840.114 350.1.13.10 4.2.7.2.686 [id number] [facility] 2024-05-17 13:14:15 2024-05-17 23:59:00 [facility] [id number] [facility] 2024-05-17 13:14:15 2024-05-17 23:59:00 Hospital Encounter Yamil Diamond [facility] 1.2840.114 350.1.13.10 4.2.7.2.686 [id number] [facility] 2024-05-03 00:00:00 2024-05-03 10:24:31 Transition of Care Aleyda Chapman Laura [address] 1.2.840.114 350.1.13.10 4.2.7.2.686 [id number] [facility] 2024-05-01 14:56:00 2024-05-02 19:15:00 Outpatient X HAZEL WELLS [facility] [id number] [facility] 2024-05-01 14:56:00 2024-05-02 19:15:00 Emergency Lynette Zarate David [facility] 1.2840.114 350.1.13.10 4.2.7.2.686 [id number] [facility] 2024-04-02 12:50:02 2024-04-02 23:59:00 Outpatient R LORIE MOSCOSO [facility] [id number] [facility] 2024-04-02 12:50:02 2024-04-02 23:59:00 Hospital Encounter Bonifacio Lorie [facility] 1.2.840.114 350.1.13.10 4.2.7.2.686 [id number] [facility] 2024-02-08 14:48:00 2024-02-08 22:18:00 Emergency X EDWIGEROSALVA [facility] [id number] [facility] 2024-02-08 14:48:00 2024-02-08 22:18:00 Emergency Rosalva Gibbons [facility] 1.2.840.114 350.1.13.10 4.2.7.2.686 [id number] [facility] 2023-11-15 00:00:00 2023-11-15 00:00:00 OFFICE VISIT ESTAB PT LEVEL 3 STLMLC STLC [id number] [facility] 2023-07-12 00:00:00 2023-07-12 00:00:00 Telephone Emanuel [facility] 1.2.840.114 350.1.13.10 4.2.7.2.686 [id number] [facility] 2023-07-07 00:00:00 2023-07-07 00:00:00 Telephone Emanuel [facility] MED[facility] OFF[facility] BUILD[facility] 1.2.840.114 350.1.13.10 4.2.7.2.686 [id number] [facility] 2023-06-20 00:00:00 2023-06-20 00:00:00 Transition of Care Gurjit [place] 1.2.840.114 350.1.13.10 4.2.7.2.686 [id number] [facility] 2023-06-14 21:09:00 2023-06-17 13:20:00 Outpatient X HAZEL WELLS [facility] [id number] [facility] 2023-06-14 21:09:00 2023-06-17 13:20:00 Emergency Alli Del Castillo Mohammad A. Morris, David [facility] 1.2.840.114 350.1.13.10 4.2.7.2.686 [id number] [facility] 2023-06-17 00:00:00 2023-06-17 00:00:00 Telephone Josselin Brooke [facility] 1.2840.114 350.1.13.10 4.2.7.2.686 [id number] [facility] 2023-02-15 23:07:00 2023-02-16 02:24:00 Emergency X REID SPICER [facility] [id number] [facility] 2023-02-15 23:07:00 2023-02-16 02:24:00 [facility] 1.2840.114 350.1.13.10 4.2.7.2.686 [id number] [id number] [facility] 2022-12-28 08:02:00 2022-12-28 11:55:00 Emergency X GLYNN GATES [facility] [id number] [facility] 2022-12-28 08:02:00 2022-12-28 11:55:00 Emergency Bailey Jones Brent J [facility] 1.2840.114 350.1.13.10 4.2.7.2.686 [id number] [facility] 2022-08-02 00:00:00 2022-08-02 00:00:00 Transition of Care Sandra Carr 1.2.840.114 350.1.13.10 4.2.7.2.686 [id number] [facility] 2022-07-28 22:19:00 2022-07-30 18:06:00 Outpatient X FANNIE DANG [facility] [id number] [facility] 2022-07-28 22:19:00 2022-07-30 18:06:00 Emergency Ladarius Ramsey Adnan [facility] 1.2.840.114 350.1.13.10 4.2.7.2.686 [id number] [facility] 2022-07-19 00:00:00 2022-07-19 00:00:00 (TEL) STLC STLMLC [id number] [facility] 2022-07-04 00:00:00 2022-07-04 00:00:00 Orders Only Doctor Unassigned, [place] [facility] 1.2.840.114 350.1.13.10 4.2.7.2.686 [id number] [facility] 2022-06-07 01:10:00 2022-06-07 02:59:00 Emergency Soumya Gonzalez [facility] 1.2.840.114 350.1.13.10 4.2.7.2.686 [id number] [facility] 2022-06-07 01:10:00 2022-06-07 02:59:00 Emergency X SOUMYA GONZALEZ [facility] [id number] [facility] 2022-05-26 00:00:00 2022-05-26 00:00:00 (TEL) STLMLC STLMLC [id number] [facility] 2022-05-25 00:00:00 2022-05-25 00:00:00 NON-BILLAB LE VISIT STLMLC STLMLC [id number] [facility] 2022-04-28 00:00:00 2022-04-28 00:00:00 (TEL) STLMLC STLMLC [id number] [facility] 2022-04-26 00:00:00 2022-04-26 00:00:00 NON-BILLAB LE VISIT STLMLC STLMLC [id number] [facility] 2022-03-25 00:00:00 2022-03-25 00:00:00 NON-BILLAB LE VISIT STLMLC STLMLC [id number] [facility] 2022-03-17 00:00:00 2022-03-17 00:00:00 (TEL) STLMLC STLMLC [id number] [facility] 2022-02-03 00:00:00 2022-02-03 00:00:00 (TEL) STLMLC STLMLC [id number] [facility] 2022-01-25 00:00:00 2022-01-25 00:00:00 (TEL) STLMLC STLMLC [id number] [facility] 2022-01-25 00:00:00 2022-01-25 00:00:00 OL DIG E/M SVC 11-20 MIN STLMLC STLMLC [id number] [facility] 2022-01-18 00:00:00 2022-01-18 00:00:00 (TEL) STLMLC STLMLC [id number] [facility] 2021-10-19 00:00:00 2021-10-19 00:00:00 OFFICE VISIT ESTAB PT LEVEL 4 STLMLC STLMLC [id number] [facility] 2021-10-12 00:00:00 2021-10-12 00:00:00 (TEL) STLMLC STLMLC [id number] [facility] 2021-09-16 00:00:00 2021-09-16 00:00:00 OFFICE VISIT ESTAB PT LEVEL 4 STLMLC STLMLC [id number] [facility] 2021-09-16 00:00:00 2021-09-16 00:00:00 (TEL) STLMLC STLMLC [id number] [facility] 2021-09-09 00:00:00 2021-09-09 00:00:00 (TEL) STLMLC STLMLC [id number] [facility] 2021-05-28 00:00:00 2021-05-28 00:00:00 OFFICE VISIT ESTAB PT LEVEL 4 STLMLC STLMLC [id number] [facility] 2021-05-18 00:00:00 2021-05-18 00:00:00 (TEL) STLMLC STLMLC [id number] [facility] 2021-05-05 00:00:00 2021-05-05 00:00:00 (TEL) STLMLC STLMLC [id number] [facility] 2021-05-04 00:00:00 2021-05-04 00:00:00 (TEL) STLMLC STLMLC [id number] [facility] 2021-05-01 00:00:00 2021-05-01 00:00:00 (TEL) STLMLC STLMLC [id number] [facility] 2021-05-01 00:00:00 2021-05-01 00:00:00 (TEL) STLMLC STLMLC [id number] [facility] 2021-04-22 00:00:00 2021-04-22 00:00:00 (HOSP F/U) Hospital Follow Up STLMLC STLMLC [id number] [facility] 2021-04-17 00:00:00 2021-04-17 00:00:00 (TEL) STLMLC STLMLC [id number] [facility] 2021-04-15 00:00:00 2021-04-15 00:00:00 (TEL) STLMLC STLMLC [id number] [facility] 2021-02-17 00:00:00 2021-02-17 00:00:00 Outpatient STLMLC STLMLC [id number] [facility] 2021-02-13 00:00:00 2021-02-13 00:00:00 Outpatient STLMLC STLMLC [id number] [facility] 2020-12-22 09:30:00 2020-12-22 09:30:[address]VES [facility] [id number] [facility] 2020-06-20 12:23:00 2020-07-31 11:49:49 Inpatient HCAPM JEF [id number] [facility] 2020-06-24 23:22:00 2020-06-24 23:22:00 Outpatient Murtaza Persaud HCACL LABO [id number] [facility] Results Test Description Test Time Test Comments Results Result Co mments Source [facility]22 19:28:58* Test Item Value Reference Range Interpretation Comme nts POCT GLU (test code = 3121761366) 376 mg/dL 70-110 H Lab Interpretation (test cod e = 97246-6) Abnormal [facility] GLUCOSE (AUTOMATED)2024-10-22 18:51:32* Test Item Value Reference Range Interpretation Comme nts POCT GLU (test code = 3602273393) 446 mg/dL 70-110 H Lab Interpretation (test cod e = 23070-9) Abnormal [facility] GLUCOSE (AUTOMATED)2024-10-22 17:45:03* Test Item Value Reference Range Interpretation Comme nts POCT GLU (test code = 8749201923) 365 mg/dL 70-110 H Lab Interpretation (test cod e = 83127-9) Ab[facility]+ vw [id number] 17:27:11EXAM: XR FEMUR 2 VW LEFT, EXAM: XR FOOT 3+ VW LEFT HISTORY: post op COMPARISON: October 19, 2024 FINDINGS: Imaging of the left femur demonstrates intramedullary nail fixation of theleft femoral diaphysis with focal medial mid diaphyseal femoral corticalthickening which may relate to underlying stressfracture, correlateclinically. Anatomic alignment is seen at the level of a left femoralintertrochanteric fracture. Postoperative soft tissue swelling and gas areseen. Osteopenia is demonstrated. Arterial calcifications are present. Skinstaples are in place along the lateral proximal and distal thigh. Meniscalchondrocalcinosis is present. Images of the left foot demonstrate osteopenia and soft tissue swelling. Ahealed fracture is noted through the third metatarsal distal diaphysis andneck with associated foreshortening. Mild remodeling is seen through thefifth metatarsal head and neck which may also relate to a healed fracture.There is foreshortening and remodeling of the fifth toe proximalphalanx.Calcaneal enthesophyte formation is seen. Plate fixation hardware ispartially profiled at the distal fibula with posttraumatic remodeling andfragmentation partially profiled at the medial malleolus. An os peroneum ispresent.[facility] Fem[facility] 2 vw [id number] 17:27:11EXAM: XR FEMUR 2 VW LEFT, EXAM: XR FOOT 3+ VW LEFT HISTORY: post op COMPARISON: October 19, 2024 FINDINGS: Imaging of the left femur demonstrates intramedullary nail fixation of theleft femoral diaphysis with focal medial mid diaphyseal femoral corticalthickening which may relate to underlying stress fracture, correlateclinically. Anatomic alignment is seen at the level of a left femoralintertrochanteric fracture. Postoperative soft tissue swelling and gas areseen. Osteopenia is demonstrated. Arterial calcifications are present. Skinstaples are in place along the lateral proximal and distal thigh. Meniscalchondrocalcinosis is present. Images of the left foot demonstrate osteopenia and soft tissue swelling. Ahealed fracture is noted through the third metatarsal distal diaphysis andneck with associated foreshortening. Mild remodeling is seen through thefifth metatarsal head and neck which may also relate to a healed fracture.There is foreshortening and remodeling of the fifth toe proximalphalanx.Calcaneal enthesophyte formation is seen. Plate fixation hardware ispartially profiled at the distal fibula with posttraumatic remodeling andfragmentation partially profiled at the medial malleolus. An os peroneum ispresent.[facility] GLUCOSE (AUTOMATED)2024-10-22 14:25:05* Test Item Value Reference Range Interpretation Comme nts POCT GLU (test code = 0827646770) 176 mg/dL 70-110 H Lab Interpretation (test cod e = 53938-8) Abnormal [facility] GLUCOSE (AUTOMATED)2024-10-22 01:57:31* Test Item Value Reference Range Interpretation Comme nts POCT GLU (test code = 3405117103) 212 mg/dL 70-110 H Lab Interpretation (test cod e = 79576-8) Abnormal [facility] GLUCOSE (AUTOMATED)2024-10-21 21:39:31* Test Item Value Reference Range Interpretation Comme [facility] POCT GLU (test code = 5782258781) 272 mg/dL 70-110 H Lab Interpretation (test cod e = 83250-4) Abnormal [facility] GLUCOSE (AUTOMATED)2024-10-21 16:32:32* Test Item Value Reference Range Interpretation Comme [facility] POCT GLU (test code = 0724173702) 259 mg/dL 70-110 H Lab Interpretation (test cod e = 48888-4) Abnormal [facility] without [id number] 15:45:24* Test Item Value Reference Range Interpretation Comme [facility] WBC (test code = 6690-2) 9.16 4.30-11.10 RBC (test code = 789-8) 2.85 3.93-5.25 L HGB (test code = 718-7) 8.7 g/dL 11.6-15.0 L HCT (test code = 4544-3) 25.9 % 35.7-45.2 L MCH (test code = 785-6) 30.5 pg 25.9-32.8 MCV (test code = 787-2) 90.9 fL 80.6-95.5 MCHC (test code = 786-4) 33.6 g/dL 31.6-35.1 PLT (test code = 777-3) 145 166-358 L MPV (test code = 27982-4) 11.6 fL 9.5-12.9 RDW-CV (test code = 788-0) 16.7 % 12.0-15.5 H RDW-SD (test code = 77064-5) 55.1 fL 39.0-49.9 H NRBC x10^3 (test code = 9730654959) See_Comment [Automated SCADA Accessa ge] The system which generated this result transmitted reference range: 10*3/?L. The reference range was not used to interpret this result as normal/abnormal. NRBC/100 WBC (test code = 5612660829) 0 0.0-10.0 IPF % (test code = 7872361506) 3.3 % 1.3-7.7 Platelet count measured by fluorescence method. Lab Interpretation (test code = 45726-3) Abnormal [facility] GLUCOSE (AUTOMATED)2024-10-21 12:33:47* Test Item Value Reference Range Interpretation Comme nts POCT GLU (test code = 3974913766) 159 mg/dL 70-110 H Lab Interpretation (test cod e = 99744-2) Abnormal [facility] Packed RBC (in units), 1 Units 2024-10-21 11:06:22* Test Item Value Reference Range Interpretation Comme nts Cross Match Result (test code = 4409) Compatible ISBT Blood Type Code (test code = 118846) 600 Unit Blood Type (test code = 4410) A Neg Unit Number (test code = 4411) [id number] Blood Expiration Date & Time (test code = 602281) [id number] Status Information (test code = 4412) Issued Product Identification (test code = 4413) Red Blood Cells Product Code (test code = 4414) [id number] Performed at [facility] B Laboratory Services [facility] Blood [address] [address]Pujy Free: [phone] No. [id number] [facility] and Screen - ONCE [id number] 10:24:00* Test Item Value Reference Range Interpretation Comme nts ABO & RH (test code = 20) A POSITIVE IAT (test code = 1185) Negative [facility] GLUCOSE (AUTOMATED)2024-10-21 03:33:46* Test Item Value Reference Range Interpretation Comme nts POCT GLU (test code = 5443913604) 271 mg/dL 70-110 H Lab Interpretation (test cod e = 40978-6) Abnormal [facility] GLUCOSE (AUTOMATED)2024-10-21 01:05:19* Test Item Value Reference Range Interpretation Comme nts POCT GLU (test code = 7835570830) 287 mg/dL 70-110 H Lab Interpretation (test cod e = 59464-9) Abnormal [facility] GLUCOSE (AUTOMATED)2024-10-20 21:55:16* Test Item Value Reference Range Interpretation Comme [facility] POCT GLU (test code = 4437533184) 314 mg/dL 70-110 H Lab Interpretation (test cod e = 70119-7) Abnormal [facility]2024-10-20 19:12:18* Test Item Value Reference Range Interpretation Comme nts POCT GLU (test code = 1737991027) 352 mg/dL 70-110 H Lab Interpretation (test cod e = 14852-0) Abnormal [facility] with [id number] 18:54:02* Test Item Value Reference Range Interpretation Comme [facility] WBC (test code = 6690-2) 8.66 4.30-11.10 RBC (test code = 789-8) 2.62 3.93-5.25 L HGB (test code = 718-7) 7.7 g/dL 11.6-15.0 L HCT (test code = 4544-3) 23.8 % 35.7-45.2 L MCV (test code = 787-2) 90.8 fL 80.6-95.5 MCH (test code = 785-6) 29.4 pg 25.9-32.8 MCHC (test code = 786-4) 32.4 g/dL 31.6-35.1 RDW-SD (test code = 91713-7) 58.9 fL 39.0-49.9 H RDW-CV (test code = 788-0) 17.7 % 12.0-15.5 H PLT (test code = 777-3) 181 166-358 MPV (test code = 23885-7) 11.1 fL 9.5-12.9 NRBC/100 WBC (test code = 3734532061) 0 0.0-10.0 NRBC x10^3 (test code = 4700646379) See_Comment [Automated messa ge] The system which generated this result transmitted reference range: 10*3/?L. The reference range was not used to interpret this result as normal/abnormal. GRAN MAT (NEUT) % (test code = 770-8) 47.4 % IMM GRAN % (test code = 7625845010) 0.5 % LYMPH % (test code = 736-9) 34.2 % MONO % (test code = 5905-5) 17.6 % EOS % (test code = 713-8) 0 % BASO % (test code = 706-2) 0.3 % GRAN MAT x10^3(ANC) (test code = 1121761814) 4.11 10*3/uL 1.88-7.09 IMM GRAN x10^3 (test code = 1400333939) 0.04 10*3/uL 0.00-0.06 LYMPH x10^3 (test code = 731-0) 2.96 10*3/uL 1.32-3.29 MONO x10^3 (test code = 742-7) 1.52 10*3/uL 0.33-0.92 H EOS x10^3 (test code = 711-2) 0.03-0.39 L BASO x10^3 (test code = 704-7) 0.03 10*3/uL 0.01-0.07 BANDS (test code = 6500616669) Increased A Lab Interpretation (test code = 83897-9) Abnormal [facility] Metabolic Panel (NA, K, CL, CO2, GLUCOSE, BUN, CREATININE, CA)2024-10-20 18:29:40* Test Item Value Reference Range Interpretation Comme nts NA (test code = 1586761735) 131 mmol/L 135-145 L K (test code = 0947468094) 4.6 mmol/L 3.5-5.0 CL (test code = 0601311826) 98 mmol/L 98-108 CO2 TOTAL (test code = 2875102641) 25 mmol/L 23-31 AGAP (test code = 1682082151) 8 2-16 BUN (test code = 7906839085) 31 mg/dL 7-23 H GLUCOSE (test code = 1283511649) 346 mg/dL 70-110 H CREATININE (test code = 2160-0) 1.71 mg/dL 0.50-1.04 H CALCIUM (test code = 4575347129) 8.9 mg/dL 8.6-10.6 eGFR (test code = 10464-6) 30.9 mL/min/1.73m2 CKD-EPI eGFR (2020). Assuming creatinine has been stable day-to-day for at least three months, the eGFR indicates Category G3b (30 - 44 mL/min/1.73 m2) Lab Interpretation (test code = 38100-1) Abnormal [facility] GLUCOSE (AUTOMATED)2024-10-20 16:20:15* Test Item Value Reference Range Interpretation Comme nts POCT GLU (test code = 6685452773) 386 mg/dL 70-110 H Lab Interpretation (test cod e = 03574-8) Abnormal [facility] GLUCOSE (AUTOMATED)2024-10-20 12:55:11* Test Item Value Reference Range Interpretation Comme nts POCT GLU (test code = 7169601426) 190 mg/dL 70-110 H Lab Interpretation (test cod e = 94744-6) Abnormal [facility] GLUCOSE (AUTOMATED)2024-10-20 12:28:15* Test Item Value Reference Range Interpretation Comme nts POCT GLU (test code = 6253637599) 177 mg/dL 70-110 H Lab Interpretation (test cod e = 62676-9) Abnormal [facility] GLUCOSE (AUTOMATED)2024-10-20 07:54:47* Test Item Value Reference Range Interpretation Comme nts POCT GLU (test code = 6751096412) 227 mg/dL 70-110 H Lab Interpretation (test cod e = 52147-3) Abnormal [facility] GLUCOSE (AUTOMATED)2024-10-20 01:49:45* Test Item Value Reference Range Interpretation Comme nts POCT GLU (test code = 8518578881) 328 mg/dL 70-110 H Lab Interpretation (test cod e = 96455-0) Abnormal [facility] GLUCOSE (AUTOMATED)2024-10-20 01:49:45* Test Item Value Reference Range Interpretation Comme nts POCT GLU (test code = 7254551258) 326 mg/dL 70-110 H Lab Interpretation (test cod e = 82016-7) Abnormal [facility] GLUCOSE (AUTOMATED)2024-10-19 23:05:13* Test Item Value Reference Range Interpretation Comme nts POCT GLU (test code = 3274179967) 213 mg/dL 70-110 H Lab Interpretation (test cod e = 30196-8) Abnormal [facility] Metabolic Panel (NA, K, CL, CO2, GLUCOSE, BUN, CREATININE, CA)2024-10-19 21:06:54* Test Item Value Reference Range Interpretation Comme nts NA (test code = 3330325022) 134 mmol/L 135-145 L K (test code = 6022903806) 4.3 mmol/L 3.5-5.0 CL (test code = 5044121671) 100 mmol/L 98-108 CO2 TOTAL (test code = 3082061373) 28 mmol/L 23-31 AGAP (test code = 9301295358) 6 2-16 BUN (test code = 9437533803) 24 mg/dL 7-23 H GLUCOSE (test code = 5025135634) 183 mg/dL 70-110 H CREATININE (test code = 2160-0) 1.02 mg/dL 0.50-1.04 CALCIUM (test code = 1814438178) 9 mg/dL 8.6-10.6 eGFR (test code = 97859-2) 57.5 mL/min/1.73m2 CKD-EPI eGFR (2020). Assuming creatinine has been stable day-to-day for at least three months, the eGFR indicates Category G3a (45 - 59 mL/min/1.73 m2) Lab Interpretation (test code = 44447-2) [facility]normal [facility] 20:34:46* Test Item Value Reference Range Interpretation Comme nts MAGNESIUM (test code = 2929274161) 1.8 mg/dL 1.7-2.4 Lab Interpretation (test cod e = 45394-0) Normal [facility]2025-04-11 20:34:46* Test Item Value Reference Range Interpretation Comme nts PHOSPHORUS (test code = 4064060127) 2.7 mg/dL 2.5-5.0 Lab Interpretation (test cod e = 94989-4) Normal [facility] Marshall[facility]b with [id number] 20:28:07* Test Item Value Reference Range Interpretation Comme nts WBC (test code = 6690-2) 7.61 4.30-11.10 RBC (test code = 789-8) 3.46 3.93-5.25 L HGB (test code = 718-7) 10.2 g/dL 11.6-15.0 L HCT (test code = 4544-3) 31.1 % 35.7-45.2 L MCV (test code = 787-2) 89.9 fL 80.6-95.5 MCH (test code = 785-6) 29.5 pg 25.9-32.8 MCHC (test code = 786-4) 32.8 g/dL 31.6-35.1 RDW-SD (test code = 27285-5) 56.4 fL 39.0-49.9 H RDW-CV (test code = 788-0) 17.4 % 12.0-15.5 H PLT (test code = 777-3) 180 166-358 MPV (test code = 25039-9) 10.5 fL 9.5-12.9 NRBC/100 WBC (test code = 6888768327) 0 0.0-10.0 NRBC x10^3 (test code = 8708114125) See_Comment [Automated messa ge] The system which generated this result transmitted reference range: 10*3/?L. The reference range was not used to interpret this result as normal/abnormal. GRAN MAT (NEUT) % (test code = 770-8) 73.4 % IMM GRAN % (test code = 7561398957) 0.7 % LYMPH % (test code = 736-9) 17.9 % MONO % (test code = 5905-5) 7.6 % EOS % (test code = 713-8) 0.1 % BASO % (test code = 706-2) 0.3 % GRAN MAT x10^3(ANC) (test code = 2204075138) 5.59 10*3/uL 1.88-7.09 IMM GRAN x10^3 (test code = 5531180812) 0.05 10*3/uL 0.00-0.06 LYMPH x10^3 (test code = 731-0) 1.36 10*3/uL 1.32-3.29 MONO x10^3 (test code = 742-7) 0.58 10*3/uL 0.33-0.92 EOS x10^3 (test code = 711-2) 0.03-0.39 L BASO x10^3 (test code = 704-7) 0.01-0.07 Lab Interpretation (test code = 67556-2) Abnormal [facility](non-reportable)2024-10-19 19:26:56 These images do not require a Radiology diagnostic report.[facility] MarshallIntubation2025-04-11 17:49:00Marbin Mattson, DO ? ? 10/19/2024 ?1:07 PMIntubationDate/Time: 10/19/2024 12:49 PMUrgency: elective Airway not difficult General Information and Staff Patient location during procedure: ORPerformed: resident/PROSTHETIC AIDE Performed by: Marbin Mattson, Authorized by: Ricky Scherer MD ? Indications and Patient ConditionIndications for airway management: anesthesiaSpontaneous ventilation: presentSedation level: deepPreoxygenated: yesPatient position: sniffingMILS maintained throughoutMask difficulty assessment: 0 - not attempted Final Airway DetailsFinal airway type: endotracheal airway Successful airway: ETTCuffed: yes Successful intubation technique: direct laryngoscopyFacilitating devices/methods: intubating styletEndotracheal tube insertion site: oralBlade: MacintoshBlade size: #4ETT s ize (mm): 7.0Cormack-Lehane Classification: grade I - full view of glottisPlacement verified by: chest auscultation and capnometry Measured from: teethETT to teeth (cm): 21Number of attempts at approach: 1Ventilation between attempts: noneNumber of other approaches attempted: 0 Additional CommentsSmooth, atraumatic, dentition and lips unchanged from pre-op.[facility] MarshallTransthoracic echo (TTE) [id number] 17:20:23* Test Item Value Reference Range Interpretation Comme nts Height (test code = 3648104123) 63 in Weight (test code = 9713004445) 158 lbs Systolic BP (test code = 8279323698) 144 mmHg Diastolic BP (test code = 9142748719) 90 mmHg Heart Rate (test code = 9192089591) 67 bpm BSA (test code = 7642872139) 1.75 m2 LVIDD (test code = 3836690623) 4.6 cm Left Ventricular End Diastolic Volume by Teichholz Method (test code = 5057240) 96.9 mL IVS (test code = 0967923892) 1.04 cm Interventricular Septum Diastolic Thickness by 2D (test code = 3031873) 1.04 cm LVPWD (test code = 1127875209) 1.03 cm PW (test code = 0860740693) 1.03 cm 0.6-1.1 EF(Teich) (test code = 9491102729) 50.8 % LVIDS (test code = 6205566412) 3.4 cm Left Ventricular End Systolic Volume by Teichholz Method (test code = 9383358) 47.7 mL FS (test code = 2710734252) 26 % EF - 2D (test code = 50614970) 50.8 % LVOT diameter (test code = 1313026932) 1.93 cm LVOT area (test code = 1470338110) 2.9 cm2 Ao root diam (test code = 9685519807) 3.3 cm Aortic root (test code = 8703128193) 3.3 cm Ao root annulus (test code = 9118438330) 3.3 cm LA size (test code = 3296079686) 3.9 cm LAV(MOD-sp4) (test code = 3776602016) 65.5 mL MV Peak E Gege (test code = 4014312142) 55.5 cm/s MV Peak A Gege (test code = 4898413626) 96.4 cm/s E/A ratio (test code = 9190060751) 0.58 ratio E wave decelartion time (test code = 7298366840) 0.18 s MV E/e' septal (test code = 3669059089) 5.8 cm/s Tapse (test code = 5670867670) 1.26 cm LVOT stroke volume (test code = 8120400474) 60.9 cm3 LVOT peak gege (test code = 2766834873) 96.4 cm/s LVOT mn grad (test code = 4391355193) 1.9 mmHg AV LVOT peak gradient (test code = 3049562605) 3.7 mmHg LVOT peak VTI (test code = 8431986688) 20.8 cm LV V1 mean (test code = 7421462044) 65 cm/s Aortic valve mean velocity (test code = 0523543319) 74.2 cm/s Ao peak gege (test code = 5254220531) 102.7 cm/s Ao VTI (test code = 9596563505) 25.9 cm AV area by cont VTI (test code = 4444662795) 2.4 cm2 AV area peak gege (test code = 8636701069) 2.3 cm2 Ao max PG (test code = 9757269275) 4.2 mm[Hg] AV peak gradient (test code = 0856924234) 4.2 mmHg AV valve area (test code = 4285064780) 2.35 cm2 AV mean gradient (test code = 8803338285) 2.6 mmHg LA Volume Index (BP) (test code = 0255298417) 32.4 mL/m2 LA volume (BP) (test code = 2813156172) 56.6 mL LAV(MOD-sp2) (test code = 9486542774) 43.3 mL A4C EF (test code = 4676297668) 45.3 % EF(sp4-el) (test code = 9637316732) 44.4 % SV(MOD-sp4) (test code = 3339854348) 59.6 mL SV(sp4-el) (test code = 9980954967) 61 mL LV Diastolic Volume (BP) (test code = 4305499655) 117.3 mL A2C EF (test code = 6501012101) 40.2 % EF(MOD-bp) (test code = 4855518148) 43.1 % EF(sp2-el) (test code = 4265318483) 41 % LV Systolic Volume (BP) (test code = 7419689720) 66.8 mL SV(MOD-bp) (test code = 0715419731) 50.5 mL SV(MOD-sp2) (test code = 4579402697) 42.3 mL EF (test code = 0788403888) 43 Left Ventricular Stroke Volume by 2-D Biplane-MOD (test code = 3709016) 50.5 mL LV Diastolic Volume Index (BP) (test code = 9807524779) 67 mL/m2 LV Systolic Volume Index (BP) (test code = 4486553483) 38.2 mL/m2 MV Prop V (test code = 6118952108) 33.8 cm/s TASV (test code = 3401817032) 9.6 cm/s Radiology Study observation (narrative) (test code = 58255-5) JEY (test code = JEY) ?Left?Ventricle: Left ventricle size is normal. Regional wall motion abnormalities are present. See diagram for findings. Mildly reduced systolic function with a visually estimated EF of 40 - 45%. EF by 2D Vega biplane is 43%. There is grade 1 diastolic dysfunction. Normal left ventricular filling pressure. ?Right?Ventricle: Right ventricle size is normal. Mildly reduced systolic function. TAPSE is 1.26 cm. TDI-derived tricuspid annular systolic velocity (TDI S') is 9.6 cm/s. ?Aorta: Dilated proximal descending aorta, measured 4 cm, indexed to BSA is 2.3 cm/m2 (normal for females is 1.6 +/- 0.3). [address] CT Aorta for further evaluation. Left VentricleLeft ventricle size is normal. Regional wall motion abnormalities are present. See diagram for findings. Mildly reduced systolic function with a visually estimated EF of 40 - 45%. EF by 2D Vega biplane is 43%. There is grade 1 diastolic dysfunction. Normal left ventricular filling pressure.Right VentricleRight ventricle size is normal. Mildly reduced systolic function. TAPSE is 1.26 cm. TDI-derived tricuspid annular systolic velocity (TDI S') is 9.6 cm/s.Left AtriumLeft atrium size is normal. Left atrium volume index is 32.4 mL/m2.Right AtriumRight atrium size is normal.IVC/SVCIVC diameter is less than or equal to 21 mm and decreases greater than 50% during inspiration; therefore the estimated right atrial pressure is normal (~0-5 mmHg).Mitral ValveMild posterior mitral annular calcification. No transvalvular regurgitation. No stenosis.Tricuspid ValveTricuspid valve structure is normal. Trace transvalvular regurgitation. Insufficient tricuspid regurgitation jet to estimate RVSP . No stenosis.Aortic ValveMildly thickened cusps. Trace transvalvular regurgitation. No hemodynamically significant .Pulmonic ValveNot well visualized. No transvalvular regurgitation. No stenosis.Ascending AortaDilated proximal descending aorta, measured 4 cm, indexed to BSA is 2.3 cm/m2 (normal for females is 1.6 +/- 0.3). [address] CT Aorta for further evaluation.Pericardium The pericardium is normal. No pericardial effusion.Study DetailsStudy quality was technically limited. A complete echocardiogram was performed using 2D, color flow Doppler and spectral Doppler. The apical, parasternal, subcostal and suprasternal views were obtained. 3 mL of Optison ultrasound enhancing agent used.Wall Scoring BaselineScore Index: 1.47The following segments are akinetic: apical septal, apical lateral and apex.The following segments are hypokinetic: apical anterior and apical inferior.All other segments are normal. [facility] MarshallNerve [id number] 16:57:33Emiliano Hammonds MD ? ? 10/19/2024 11:59 AM Nerve Block Procedure: Other Peripheral Nerve (fascia iliaca) Patient Location: ICULaterality: LeftSurgical Anesthesia: Post Op Pain: Post Op Pain Managementrequested by surgeon per surgical: Progress NoteResident/PROSTHETIC AIDE: Anthony Okeefe, JOAOerformedby: resident/CRNAPreanesthetic timeout completed prior to procedure: patient identified,IV checked,site marked, risks and benefits discussed, surgical consent, monitors and equipment checked, pre-opevaluation, timeout performedInformed consent obtained patient wishes to proceed: yesPatient Positio n: supineSterile Prep/Drape: YesMonitoring: continuous pulse ox, blood pressure and ECGInjection Technique: single-shotNerve Block Needle Type: Pajunk.Needle Gauge: 22 GNeedle Length: 4.0Number of Attempts: 1Technique: Ultrasound guided, Negative aspiration and Intermittent aspiration during injectionEvents: Patient tolerated procedure well, Negative Aspiration and Local anesthetic solution visualized around nerve Medications Given: Regional:EPI 1:200KUn[facility]XR Chest 1 [id number] 15:26:21Chest X-Ray Indication: sob ? Technique: Frontal view(s) of the chest submitted for interpretation. Comparison: July 17, 2024 RL: Ordering Clinician: SOUMYA FAIRCHILD Technical Quality: Adequate Findings: No consolidation or effusion. ?No acute mediastinal abnormality. ?No acutefractures.[facility] 2024-10-19 14:07:48* Test Item Value Reference Range Interpretation Comme nts POCT GLU (test code = 2278973619) 143 mg/dL 70-110 H Lab Interpretation (test cod e = 64196-0) Abnormal [facility] MarshallCT Hip left wo [id number] 14:03:28CT HIP LEFT WO CONTRAST INDICATION: hip fracture Thin cuts + 3D recon COMPARISON: 10/18/2024 TECHNIQUE: Axial CT imaging through the left hip was performed without IVcontrast. Coronal and sagittal reformats were constructed and reviewed. FINDINGS: There is a nondisplaced spiral fracture extending through the base of thelesser trochanter and along the posterior lateral proximal femoraldiametaphysis. Patchy trabecular pattern at the intertrochanteric femur.Mild left hip osteoarthrosis.[facility] MarshallXR Femur 2 vw [id number] 12:33:39XR FEMUR 2 VW RIGHT HISTORY: ?for comparison COMPARISON: ?none available.[facility] MarshallXR Hips 2 vw left 2024-10-19 12:32:57XR HIPS 2 VW LEFT, XR FEMUR 2 VW LEFT HISTORY: ?hip fracture COMPARISON: ?none available.[facility] MarshallXR Femur 2 vw left 2024-10-19 12:32:57XR HIPS 2 VW LEFT, XR FEMUR 2 VW LEFT HISTORY: ?hip fracture COMPARISON: ?none available.[facility] MarshallCT TRAUMA HEAD WO [id number] 22:18:30FULL RESULT: Examination: CT TRAUMA HEAD WO CONTRAST, CT TRAUMA CERVICAL SPINE WOCONTRAST on 10/18/2024 4:50 PM Clinical Indication: fall Comparison: 08/21/2024 Technique: Noncontrast imaging was obtained through the brain and cervicalspine. Findings: The sulci and ventricles were unremarkable. Therewas no evidencefor mass lesion, hemorrhage, or underlying edema. There were no bony,sinonasal or skull base lesions. With respect to the cervical spine there is no evidence of fracture ortraumatic malalignment. [facility] MarshallCT TRAUMA CERVICAL SPINE WO [id number] 22:18:30FULL RESULT: Examination: CT TRAUMA HEAD WO CONTRAST, CT TRAUMA CERVICAL SPINE WOCONTRAST on 10/18/2024 4:50 PM Clinical Indication: fall Comparison: 08/21/2024 Technique: Noncontrast imaging was obtained through the brain and cervicalspine. Findings: The sulci and ventricles were unremarkable. Therewas no evidencefor mass lesion, hemorrhage, or underlying edema. There were no bony,sinonasal or skull base lesions. With respect to the cervical spine there is no evidence of fracture ortraumatic malalignment.[facility] MarshallXR Pelvis <3 [id number] 21:23:27EXAM: XR KNEE <3 VW LEFTEXAM: XR ANKLE 3+ VW RIGHTEXAM: XR KNEE <3 VW RIGHTEXAM: XR ANKLE 3+ VW LEFT,EXAM: XR TIBIA FIBULA 2 VW LEFTEXAM: XR TIBIA FIBULA 2 VW RIGHTEXAM: XR PELVIS <3 VW HISTORY: knee pain s/p fall COMPARISON: None. FINDINGS: Radiographs of the pelvis were obtained. Diffuseosteopenia is noted. Thereis a nondisplaced comminuted left intertrochanteric fracture with suspectedsubtrochanteric involvement. No additional fractures are seen withinlimitations of severe osteopenia. No sacroiliac or pubic symphysisdiastasis. Pubic symphysis chondrocalcinosis is present. Mild bilateral hiposteoarthrosis is noted. Scattered pelvic enthesophytes are noted. Radiographs of the bilateral knees, tibias, fibulas, and ankles wereobtained. No acute fracture dislocation is seen. Thereis diffuse osseousdemineralization. Healed internally fixated left distal fibular fractureseen without acute hardware complication. Bilateral plantar calcaneal bonespurs are present. Knee joint effusion is visualized.[facility] MarshallXR Ankle 3+ vw [id number] 21:23:27EXAM: XR KNEE <3 VW LEFTEXAM: XR ANKLE 3+ VW RIGHTEXAM: XR KNEE <3 VW RIGHTEXAM: XR ANKLE 3+ VW LEFT,EXAM: XR TIBIA FIBULA 2 VW LEFTEXAM: XR TIBIA FIBULA 2 VW RIGHTEXAM: XR PELVIS <3 VW HISTORY: knee pain s/p fall COMPARISON: None. FINDINGS: Radiographs of the pelvis were obtained. Diffuseosteopenia is noted. Thereis a nondisplaced comminuted left intertrochanteric fracture with suspectedsubtrochanteric involvement. No additional fractures are seen withinlimitations of severe osteopenia. No sacroiliac or pubic symphysisdiastasis. Pubic symphysis chondrocalcinosis is present. Mild bilateral hiposteoarthrosis is noted. Scattered pelvic enthesophytes are noted. Radiographs of the bilateral knees, tibias, fibulas, and ankles wereobtained. No acute fracture dislocation is seen. Thereis diffuse osseousdemineralization. Healed internally fixated left distal fibular fractureseen without acute hardware complication. Bilateral plantar calcaneal bonespurs are present. Knee joint effusion is visualized.[facility] MarshallXR Tibia fibula 2 vw [id number] 21:23:27EXAM: XR KNEE <3 VW LEFTEXAM: XR ANKLE 3+ VW RIGHTEXAM: XR KNEE <3 VW RIGHTEXAM: XR ANKLE 3+ V W LEFT,EXAM: XR TIBIA FIBULA 2 VW LEFTEXAM: XR TIBIA FIBULA 2 VW RIGHTEXAM: XR PELVIS <3 VW HISTORY: knee pain s/p fall COMPARISON: None. FINDINGS: Radiographs of the pelvis were obtained. Diffuseosteopenia is noted. Thereis a nondisplaced comminuted left intertrochanteric fracture with suspectedsubtrochanteric involvement. No additional fractures are seen withinlimitations of severe osteopenia. No sacroiliac or pubic symphysisdiastasis. Pubic symphysis chondrocalcinosis is present. Mild bilateral hiposteoarthrosis is noted. Scattered pelvic enthesophytes are noted. Radiographs of the bilateral knees, tibias, fibulas, and ankles wereobtained. No acute fracture dislocation is seen. Thereis diffuse osseousdemineralization. Healed internally fixated left distal fibular fractureseen without acute hardware complication. Bilateral plantar calcaneal bonespurs are present. Knee joint effusion is visualized.[facility] MarshallXR Tibia fibula 2 vw [id number] 21:23:27EXAM: XR KNEE <3 VW LEFTEXAM: XR ANKLE 3+ VW RIGHTEXAM: XR KNEE <3 VW RIGHTEXAM: XR ANKLE 3+ V W LEFT,EXAM: XR TIBIA FIBULA 2 VW LEFTEXAM: XR TIBIA FIBULA 2 VW RIGHTEXAM: XR PELVIS <3 VW HISTORY: knee pain s/p fall COMPARISON: None. FINDINGS: Radiographs of the pelvis were obtained. Diffuseosteopenia is noted. Thereis a nondisplaced comminuted left intertrochanteric fracture with suspectedsubtrochanteric involvement. No additional fractures are seen withinlimitations of severe osteopenia. No sacroiliac or pubic symphysisdiastasis. Pubic symphysis chondrocalcinosis is present. Mild bilateral hiposteoarthrosis is noted. Scattered pelvic enthesophytes are noted. Radiographs of the bilateral knees, tibias, fibulas, and ankles wereobtained. No acute fracture dislocation is seen. Thereis diffuse osseousdemineralization. Healed internally fixated left distal fibular fractureseen without acute hardware complication. Bilateral plantar calcaneal bonespurs are present. Knee joint effusion is visualized.[facility] <3 vw [id number] 21:23:27EXAM: XR KNEE <3 VW LEFTEXAM: XR ANKLE 3+ VW RIGHTEXAM: XR KNEE <3 VW RIGHTEXAM: XR ANKLE 3+ VW LEFT,EXAM: XR TIBIA FIBULA 2 VW LEFTEXAM: XR TIBIA FIBULA 2 VW RIGHTEXAM: XR PELVIS <3 VW HISTORY: knee pain s/p fall COMPARISON: None. FINDINGS: Radiographs of the pelvis were obtained. Diffuseosteopenia is noted. Thereis a nondisplaced comminuted left intertrochanteric fracture with suspectedsubtrochanteric involvement. No additional fractures are seen withinlimitations of severe osteopenia. No sacroiliac or pubic symphysisdiastasis. Pubic symphysis chondrocalcinosis is present. Mild bilateral hiposteoarthrosis is noted. Scattered pelvic enthesophytes are noted. Radiographs of the bilateral knees, tibias, fibulas, and ankles wereobtained. No acute fracture dislocation is seen. Thereis diffuse osseousdemineralization. Healed internally fixated left distal fibular fractureseen without acute hardware complication. Bilateral plantar calcaneal bonespurs are present. Knee joint effusion is visualized.[facility] <3 vw [id number] 21:23:27EXAM: XR KNEE <3 VW LEFTEXAM: XR ANKLE 3+ VW RIGHTEXAM: XR KNEE <3 VW RIGHTEXAM: XR ANKLE 3+ VW LEFT,EXAM: XR TIBIA FIBULA 2 VW LEFTEXAM: XR TIBIA FIBULA 2 VW RIGHTEXAM: XR PELVIS <3 VW HISTORY: knee pain s/p fall COMPARISON: None. FINDINGS: Radiographs of the pelvis were obtained. Diffuseosteopenia is noted. Thereis a nondisplaced comminuted left intertrochanteric fracture with suspectedsubtrochanteric involvement. No additional fractures are seen withinlimitations of severe osteopenia. No sacroiliac or pubic symphysisdiastasis. Pubic symphysis chondrocalcinosis is present. Mild bilateral hiposteoarthrosis is noted. Scattered pelvic enthesophytes are noted. Radiographs of the bilateral knees, tibias, fibulas, and ankles wereobtained. No acute fracture dislocation is seen. Thereis diffuse osseousdemineralization. Healed internally fixated left distal fibular fractureseen without acute hardware complication. Bilateral plantar calcaneal bonespurs are present. Knee joint effusion is visualized.[facility]XR Ankle 3+ vw [id number] 21:23:27EXAM: XR KNEE <3 VW LEFTEXAM: XR ANKLE 3+ VW RIGHTEXAM: XR KNEE <3 VW RIGHTEXAM: XR ANKLE 3+ VW LEFT,EXAM: XR TIBIA FIBULA 2 VW LEFTEXAM: XR TIBIA FIBULA 2 VW RIGHTEXAM: XR PELVIS <3 VW HISTORY: knee pain s/p fall COMPARISON: None. FINDINGS: Radiographs of the pelvis were obtained. Diffuseosteopenia is noted. Thereis a nondisplaced comminuted left intertrochanteric fracture with suspectedsubtrochanteric involvement. No additional fractures are seen withinlimitations of severe osteopenia. No sacroiliac or pubic symphysisdiastasis. Pubic symphysis chondrocalcinosis is present. Mild bilateral hiposteoarthrosis is noted. Scattered pelvic enthesophytes are noted. Radiographs of the bilateral knees, tibias, fibulas, and ankles wereobtained. No acute fracture dislocation is seen. Thereis diffuse osseousdemineralization. Healed internally fixated left distal fibular fractureseen without acute hardware complication. Bilateral plantar calcaneal bonespurs are present. Knee joint effusion is visualized.[facility] MarshallFL [facility] OR(non-reportable)2024-10-01 13:34:42These images do not require a Radiology diagnostic report.[facility] [place] Time OR(non-reportable)2024-10-01 13:34:42These images do not require a Radiology diagnostic report.[facility] Marshall[facility] (AUTOMATED)2024-10-01 12:12:03* Test Item Value Reference Range Interpretation Comme nts POCT GLU (test code = 6815078973) 111 mg/dL 70-110 H Lab Interpretation (test cod e = 53786-9) Abnormal [facility] GLUCOSE (AUTOMATED)2024-10-01 12:12:03* Test Item Value Reference Range Interpretation Comme nts POCT GLU (test code = 4943669558) 111 mg/dL 70-110 H Lab Interpretation (test cod e = 91520-5) Abnormal [facility] GLUCOSE (AUTOMATED)2024-09-10 17:41:56* Test Item Value Reference Range Interpretation Comme nts POCT GLU (test code = 3871350594) 77 mg/dL 70-110 Lab Interpretation (test cod e = 37904-3) Normal [facility] GLUCOSE (AUTOMATED)2024-09-10 17:41:56* Test Item Value Reference Range Interpretation Comme nts POCT GLU (test code = 9965505483) 77 mg/dL 70-110 Lab Interpretation (test cod e = 98931-5) Normal [facility] Time OR(non-reportable)2024-09-10 14:29:02 These images do not require a Radiology diagnostic report.[facility] Time OR(non-reportable)2024-09-10 14:29:02These images do not require a Radiology diagnostic report.[facility] [facility] OR(non-reportable)2024-08-13 14:29:07These images do not require a Radiology diagnostic report.[facility] Time OR(non-reportable) 2024-08-13 14:29:07These images do not require a Radiology diagnostic report. [facility] GLUCOSE (AUTOMATED)2024-08-13 12:47:51* Test Item Value Reference Range Interpretation Comme nts POCT GLU (test code = 2077344572) 214 mg/dL 70-110 H Lab Interpretation (test cod e = 78412-3) Abnormal [facility] GLUCOSE (AUTOMATED)2024-08-13 12:47:51* Test Item Value Reference Range Interpretation Comme nts POCT GLU (test code = 4491188582) 214 mg/dL 70-110 H Lab Interpretation (test cod e = 65738-2) [facility] <3 vw [id number] 03:22:33ORDERING PHYSICIAN:GLYNN ?VASUT CLINICAL INFORMATION: ? fall, left ankle pain COMPARISON: None Technique: ? 3 views of the left ankle Findings: Postsurgical changes of open reduction internal fixation are seen at thelevel of the distal left fibula. The medial malleolus is a slightlyirregular appearance. There is also slight asymmetric widening of themedial clear space at the level of the ankle mortise on the AP view. Softtissue edema is seen. No foreign bodies are seen in the soft tissues.[facility] Shoulder 2+ vw [id number] 03:20:42ORDERING PHYSICIAN: ? GLYNN ?VASUT HISTORY: Shoulder pain COMPARISON: none FINDINGS: A total of 3 views of the left shoulder demonstrate no fracture ordislocation. There are moderate degenerative changes of theacromioclavicular joint. The visualized portion of the left lung and ribsare normal.[facility] Hips 3 vw [id number] 03:17:55 ORDERING PHYSICIAN:GLYNN ?VASUT CLINICAL INFORMATION: ? fall, left hip pain COMPARISON: None Technique: ? 2 views of the left hip Findings: Mineralization is age appropriate. No acute fractures or dislocations areseen. No radiopaque foreign bodies are seen in the soft tissues.[facility] Elbow <3 vw [id number] 03:16:42ORDERING PHYSICIAN:GLYNN ?VASUT CLINICAL INFORMATION: ? fall, left elbow pain COMPARISON: None Technique: ? 3 views of the left elbow Findings: Overall mineralization is age appropriate. No acute fractures ordislocations are seen. There is no elbow joint effusion. Note is opaqueforeign bodies are seen in the soft tissues. Suspected previous bonyinfarct is seen in the distal diaphysis of the left humerus.[facility] Knee 3 vw [id number] 03:15:39Ordering Physician: ?GLYNN ?VASUT HISTORY: Left knee pain COMPARISON: none FINDINGS:Three views of t he left knee. ?There is no fracture or dislocation. ?Thereis no joint effusion. The joint spaces are normal. Soft tissues are normal.[facility] Chest 1 [id number] 03:14:29ORDERING PHYSICIAN: ? GLYNN ?VASUT HISTORY: fall, chest pain ? COMPARISON: none FINDINGS: Single frontal view of the chest. Heart is normal in size. ?There is no pulmonary edema. There are no focalareas of consolidation. There is no pneumothorax. ?There are no pleuraleffusions. Osseous structures are unremarkable. ? Please note that chest radiography is not a sensitive modality for thedetection of masses.[facility] THORACIC SPINE WO [id number] 22:09:46EXAM: MR THORACIC SPINE WO CONTRAST, MR LUMBAR SPINE WO CONTRAST HISTORY: Pain in the thoracic and lumbar spine. TECHNIQUE: MRIs of the thoracic and lumbar spine were performed withoutintravenous administration of contrast. COMPARISON: CT thoracic spine dated 02/16/2023 and thoracic and lumbar spineradiograph dated 04/02/2024. FINDINGS: THORACIC SPINE MRI Normal thoracic kyphosis. Chronic compression deformity of T11 vertebralbody with kyphoplasty changes are redemonstrated. Mild anterior wedging ofT12 vertebral body with approximately 30% height loss. No retropulsion intothe spinal canal. The vertebral bodies are otherwise normal in height and alignment. The background bone marrow signal is unremarkable. The thoracic spinal cord is normal in morphology and signal intensity. Thoracic discs are normal in height and signal intensity. Mild disc bulgesat T10-T11 and T11-T12 without significantcompressive effect. Nohigh-grade spinal canal stenosis or significant neural foraminal narrowingat any level. The paraspinal soft tissues are unremarkable. LUMBAR SPINE MRI Normal lumbar lordosis. Mild central wedging of L3 vertebral body likelysecondary to Schmorl's node. The vertebral bodies are otherwise normal inheight and alignment. The background bone marrow signal is unremarkable. The conus medullaris terminates at L1 and is normal. Crowding of caudaequina nerve roots at L2-L3. Multilevel disc desiccation. At L1-L2, no high-grade spinal canal stenosis or significant neuralforaminal narrowing. At L2-L3, diffuse disc bulge with facet arthrosis and ligamentum flavumthickening result in moderate spinal canal stenosis with moderate right andmild left neural foraminal narrowing. At L3-L4, no high-grade spinal canal stenosis or significant neuralforaminal narrowing. At L4-L5, mild disc bulge with bilateral facet arthrosis result in severeleft and moderate right neural foraminal narrowing. No high-grade spinalcanal stenosis. At L5-S1, diffuse disc bulge result in severe bilateral neural foraminalnarrowing. No high-grade spinal canal stenosis. The paraspinal soft tissues are unremarkable. [facility] LUMBAR SPINE WO [id number] 22:09:46 EXAM: MR THORACIC SPINE WO CONTRAST, MR LUMBAR SPINE WO CONTRAST HISTORY: Pain in the thoracic and lumbar spine. TECHNIQUE: MRIs of the thoracic and lumbar spine were performed withoutintravenous administration of contrast. COMPARISON: CT thoracic spine dated 02/16/2023 and thoracic and lumbar spineradiograph dated 04/02/2024. FINDINGS: THORACIC SPINE MRI Normal thoracic kyphosis. Chronic compression deformity of T11 vertebralbody with kyphoplasty changes are redemonstrated. Mild anterior wedging ofT12 vertebral body with approximately 30% height loss. No retropulsion intothe spinal canal. The vertebral bodies are otherwise normal in height and alignment. The background bone marrow signal is unremarkable. The thoracic spinal cord is normal in morphology and signal intensity. Thoracic discs are normal in height and signal intensity. Mild disc bulgesat T10-T11 and T11-T12 without significantcompressive effect. Nohigh-grade spinal canal stenosis or significant neural foraminal narrowingat any level. The paraspinal soft tissues are unremarkable. LUMBAR SPINE MRI Normal lumbar lordosis. Mild central wedging of L3 vertebral body likelysecondary to Schmorl's node. The vertebral bodies are otherwise normal inheight and alignment. The background bone marrow signal is unremarkable. The conus medullaris terminates at L1 and is normal. Crowding of caudaequina nerve roots at L2-L3. Multilevel disc desiccation. At L1-L2, no high-grade spinal canal stenosis or significant neuralforaminal narrowing. At L2-L3, diffuse disc bulge with facet arthrosis and ligamentum flavumthickening result in moderate spinal canal stenosis with moderate right andmild left neural foraminal narrowing. At L3-L4, no high-grade spinal canal stenosis or significant neuralforaminal narrowing. At L4-L5, mild disc bulge with bilateral facet arthrosis result in severeleft and moderate right neural foraminal narrowing. No high-grade spinalcanal stenosis. At L5-S1, diffuse disc bulge result in severe bilateral neural foraminalnarrowing. No high-grade spinal canal stenosis. The paraspinal soft tissues are unremarkable. [facility] GLUCOSE (AUTOMATED)2024-05-02 21:38:37* Test Item Value Reference Range Interpretation Comme [facility] POCT GLU (test code = 5916619011) 237 mg/dL 70-110 H Lab Interpretation (test cod e = 33399-6) Abnormal [facility] 1 [id number] 21:22:09EXAM: XR CHEST 1 VW COMPARISON: None [facility] 16:34:07* Test Item Value Reference Range Interpretation Comme [facility] POCT GLU (test code = 1906250590) 224 mg/dL 70-110 H Lab Interpretation (test cod e = 50873-7) Abnormal [facility]2024-05-02 16:33:44* Test Item Value Reference Range Interpretation Comme nts Height (test code = 0591276896) 63 in Weight (test code = 8662608296) 150 lbs Systolic BP (test code = 5571741413) 187 mmHg Diastolic BP (test code = 8750690137) 83 mmHg Heart Rate (test code = 7105832581) 65 bpm BSA (test code = 9768281926) 1.71 m2 Ao root diam (test code = 0770468526) 3.60 cm Aortic root (test code = 7712465266) 3.6 cm Ao root annulus (test code = 9618946433) 3.6 cm LVOT diameter (test code = 4013605005) 2.00 cm LVOT area (test code = 2713667698) 3.10 cm2 LA size (test code = 8407788159) 3.8 cm LAV(MOD-sp4) (test code = 9399224831) 86.60 mL E wave decelartion time (test code = 7412970918) 0.21 s MV stenosis pressure 1/2 time (test code = 3461559510) 64.4 ms MV Peak A Gege (test code = 8154849324) 99.0 cm/s MV Peak E Gege (test code = 6923573500) 76.0 cm/s E/A ratio (test code = 9875293694) 0.77 ratio MR max PG (test code = 5993304472) 83.20 mm[Hg] MR max gege (test code = 8184969476) 456.10 cm/s Mr max gege (test code = 5453248454) 456.1 m/s MV Prop V (test code = 5703287477) 30.50 cm/s MV E/e' septal (test code = 5103298780) 8.2 cm/s Tapse (test code = 7600867903) 1.65 cm LVOT stroke volume (test code = 1455161348) 74.00 cm3 LVOT peak gege (test code = 7383431929) 106.4 cm/s LVOT mn grad (test code = 1564156037) 2.2 mmHg AV LVOT peak gradient (test code = 5530867996) 4.5 mmHg LVOT peak VTI (test code = 4389949482) 23.6 cm LV V1 mean (test code = 9298911596) 69.00 cm/s Aortic valve mean velocity (test code = 9664347689) 90.8 cm/s Ao peak gege (test code = 8408692581) 132.6 cm/s Ao VTI (test code = 5014841311) 26.5 cm AV area by cont VTI (test code = 5284385827) 2.8 cm2 AV area peak gege (test code = 6942532274) 2.5 cm2 Ao max PG (test code = 6006958524) 7.00 mm[Hg] AV peak gradient (test code = 9586800066) 7.0 mmHg AV valve area (test code = 3696673686) 2.80 cm2 AV mean gradient (test code = 8308808270) 3.6 mmHg LVPWD (test code = 8900977678) 1.31 cm PW (test code = 0687030717) 1.31 cm 0.6-1.1 LVIDD (test code = 8178583865) 5.00 cm Left Ventricular End Diastolic Volume by Teichholz Method (test code = 0825125) 116.4 mL IVS (test code = 1384709357) 1.30 cm Interventricular Septum Diastolic Thickness by 2D (test code = 7658333) 1.30 cm EF(Teich) (test code = 3082550416) 49.80 % LVIDS (test code = 1847004216) 3.70 cm Left Ventricular End Systolic Volume by Teichholz Method (test code = 7002781) 58.4 mL FS (test code = 6195468223) 25 % EF - 2D (test code = 61555499) 49.80 % Radiology Study observation (narrative) (test code = 87283-1) JEY (test code = JEY) ?Left?Ventricle: Left ventricle size is normal. Normal wall thickness. Large apex severe hypokinesis, mild hypokinesis of the rest segments. Moderately reduced systolic function with a visually estimated EF of 30 - 35%. There is impaired relaxation. Normal left ventricular filling pressure. ?Right?Ventricle: Right ventricle size is normal. Mildly reduced systolic function. ?Left?Atrium: Left atrium is mildly dilated. ?Tricuspid?Valve: Insufficient tricuspid regurgitation jet to estimate RVSP . ?RA pressure is 0-5 mmHg. Left VentricleLeft ventricle size is normal. Normal wall thickness. Large apex severe hypokinesis, mild hypokinesis of the rest segments. Moderately reduced systolic function with a visually estimated EF of 30 - 35%. There is impaired relaxation. Normal left ventricular filling pressure.Right VentricleRight ventricle size is normal. Mildly reduced systolic function.Left AtriumLeft atrium is mildly dilated.Right AtriumRight atrium size is normal.IVC/SVCIVC diameter is less than or equal to 21 mm and decreases greater than 50% during inspiration; therefore the estimated right atrial pressure is normal (~0-5 mmHg).Mitral ValveMildly calcified subvalvular apparatus. Trace transvalvular regurgitation.Tricusp id ValveTricuspid valve structure is normal. Trace transvalvular regurgitation. Insufficient tricuspid regurgitation jet to estimate RVSP . RA pressure is 0-5 mmHg.Aortic ValveTricuspid. Mildly thickened cusps.Pulmonic ValveValve structure is normal.Ascending AortaNormal sized aorta.PericardiumThe pericardium is normal. No pericardial effusion.Study DetailsStudy quality was adequate. A complete echocardiogram was performed using 2D, color flow Doppler and spectral Doppler. 5 mL of Lumason ultrasound enhancing agent [facility]. [facility] 12:44:36* Test Item Value Reference Range Interpretation Comme nts POCT GLU (test code = 2624641218) 108 mg/dL 70-110 Lab Interpretation (test cod e = 35192-4) Normal [facility] GLUCOSE (AUTOMATED)2024-05-02 00:32:02* Test Item Value Reference Range Interpretation Comme nts POCT GLU (test code = 7266030801) 112 mg/dL 70-110 H Lab Interpretation (test cod e = 12494-2) Abnormal [facility] GLUCOSE (AUTOMATED)2024-05-01 22:51:35* Test Item Value Reference Range Interpretation Comme nts POCT GLU (test code = 6299262286) 112 mg/dL 70-110 H Lab Interpretation (test cod e = 72963-2) Abnormal [facility] 2 [id number] 20:36:53XR THORACIC SPINE 2 VW, XR LUMBAR SPINE 2 VW HISTORY: Female 73 years ACUTE THORACIC BACK PAIN COMPARISON: CT spine dated 02/16/2023 FINDINGS: Chronic compression fractures of the T10-T12 vertebra, with up to moderateheight loss at T11 status post vertebral augmentation, are unchanged. The thoracolumbar vertebral bodies are normal in height and in normalalignment. No significant thoracic degenerative changes are present. Mildto moderate lumbar degenerative changes are present, most pronounced atL4-L5. No acute osseous abnormality. [facility] 2 [id number] 20:36:53XR THORACIC SPINE 2 VW, XR LUMBAR SPINE 2 VW HISTORY: Female 73 years ACUTE THORACIC BACK PAIN COMPARISON: CT spine dated 02/16/2023 FINDINGS: Chronic compression fractures of the T10-T12 vertebra, with up to moderateheight loss at T11 status post vertebral augmentation, are unchanged. The thoracolumbar vertebral bodies are normal in height and in normalalignment. No significant thoracic degenerative changes are present. Mildto moderate lumbar degenerative changes are present, most pronounced atL4-L5. No acute osseous abnormality. [facility] 3 VW [id number] 02:35:23EXAM: XR HIPS 3 VW LEFT, XR HIPS 3 VW RIGHT, XR FEMUR 2 VW RIGHT HISTORY: 73 years old Female with pain COMPARISON: None available. FINDINGS: Radiographs of the bilateral hips and right femur demonstrate no acutefractures or dislocations. Diffuse osteopenia. Mild bilateral hiposteoarthrosis is noted in the form of inferomedial joint space narrowing,subchondral sclerosis and marginal osteophytosiswith bilateralchondrocalcinosis. Alignment is within normal limits. Pelvic phlebolithsare noted. Tricompartmental osteoarthrosis of the right knee is noted inthe form of joint space narrowing and subchondral sclerosis with meniscalchondrocalcinosis. Spondylotic changes of the lower lumbar spine. [facility] 3 VW [id number] 02:35:23EXAM: XR HIPS 3 VW LEFT, XR HIPS 3 VW RIGHT, XR FEMUR 2 VW RIGHT HISTORY: 73 years old Female with pain COMPARISON: None available. FINDINGS: Radiographs of the bilateral hips and right femur demonstrate no acutefractures or dislocations. Diffuse osteopenia. Mild bilateral hiposteoarthrosis is noted in the form of inferomedial joint space narrowing,subchondral sclerosis and marginal osteophytosiswith bilateralchondrocalcinosis. Alignment is within normal limits. Pelvic phlebolithsare noted. Tricompartmental osteoarthrosis of the right knee is noted inthe form of joint space narrowing and subchondral sclerosis with meniscalchondrocalcinosis. Spondylotic changes of the lower lumbar spine. [facility] FEM[facility] 2 VW [id number] 02:35:23EXAM: XR HIPS 3 VW LEFT, XR HIPS 3 VW RIGHT, XR FEMUR 2 VW RIGHT HISTORY: 73 years old Female with pain COMPARISON: None available. FINDINGS: Radiographs of the bilateral hips and right femur demonstrate no acutefractures or dislocations. Diffuse osteopenia. Mild bilateral hiposteoarthrosis is noted in the form of inferomedial joint space narrowing,subchondral sclerosis and marginal osteophytosiswith bilateralchondrocalcinosis. Alignment is within normal limits. Pelvic phlebolithsare noted. Tricompartmental osteoarthrosis of the right knee is noted inthe form of joint space narrowing and subchondral sclerosis with meniscalchondrocalcinosis. Spondylotic changes of the lower lumbar spine. [facility] [id number] 23:47:21EXAM: CT HEAD WO CONTRAST, CT CERVICAL SPINE WO CONTRAST HISTORY: 73 years-old Female; Headache, new or worsening. COMPARISON: None TECHNIQUE: ?CT imaging of the head and cervical spine was obtained withoutIV contrast. Coronal and sagittal reformats were constructed. FINDINGS: HEAD: The ventricles and sulci are prominent and consistent with global cerebralvolume loss. No hydrocephalus, midline shift or pathological extra-axialfluid collection is present. The basal cisterns are unremarkable. There is no acute intracranial hemorrhage or significant mass effect.Periventricular white matter hypodensities are nonspecific but likelyrepresent sequelae of microvascular ischemic disease. The rojas-white matterdifferentiation is preserved. The mastoid air cells and paranasal air sinuses are clear. The calvariumand central skull base are unremarkable. CERVICAL SPINE: Straightening of normal cervical lordosis is seen. The vertebral bodies arenormal in height and alignment. No acute fracture or traumaticmalalignment. The craniocervical junction is intact. The intervertebraldisc spaces are preserved. Multifocal calcifications of the posteriorlongitudinal ligament is noted.[facility] CERVICAL SPINE WO [id number] 23:47:21EXAM: CT HEAD WO CONTRAST, CT CERVICAL SPINE WO CONTRAST HISTORY: 73 years-old Female; Headache, new or worsening. COMPARISON: None TECHNIQUE: ?CT imaging of the head and cervical spine was obtained withoutIV contrast. Coronal and sagittal reformats were constructed. FINDINGS: HEAD: The ventricles and sulci are prominent and consistent with global cerebralvolume loss. No hydrocephalus, midline shift or pathological extra-axialfluid collection is present. The basal cisterns are unremarkable. There is no acute intracranial hemorrhage or significant mass effect.Periventricular white matter hypodensities are nonspecific but likelyrepresent sequelae of microvascular ischemic disease. The rojas-white matterdifferentiation is preserved. The mastoid air cells and paranasal air sinuses are clear. The calvariumand central skull base are unremarkable. CERVICAL SPINE: Straightening of normal cervical lordosis is seen. The vertebral bodies arenormal in height and alignment. No acute fracture or trau maticmalalignment. The craniocervical junction is intact. The intervertebraldisc spaces are preserved. Multifocal calcifications of the posteriorlongitudinal ligament is noted.[facility] 2 [id number] 22:26:05EXAM: XR CHEST 2 VW COMPARISON: Chest x-ray on 06/14/2023 HISTORY: fall, afib FINDINGS: Lungs: Low lung volumes with broncho-vascular crowding. Streaky bilateralinfrahilar opacities, likely representing atelectasis. No pleural effusionor pneumothorax. Heart/Mediastinum: Stable mild cardiomegaly. Prominent left pericardial fatpad. Aortic arch calcifications. Bones and soft tissues: Kyphoplasty changes of the lower thoracic spinevertebral body is seen. Diffuse osteopenia. No osseous lesions visualized.[facility] TROPONIN [id number] 21:47:09* Test Item Value Reference Range Interpretation Comme nts TROPONIN I (test code = 1338902361) 0.012 ng/mL <=0.034 JEY (test code = JEY) Reference (Normal) Range (defined by the 99th percentile reference limit): <= 0.034 ng/mL Note: Cardiac troponin begins to rise 3-4 hours after the onset of ischemia. Repeat in 4-6 hours if the sample was drawn within 3-4 hours of the onset of the symptom and found normal. Diagnosis of myocardial injury is made with acute changes in cTn concentrations with at least one serial sample above the 99th percentile upper reference limit (URL), taken together with the patient's clinical presentation. Biotin has been reported to cause a negative bias, interpret results relative to patient's use of biotin. Lab Interpretation (test code = 92334-5) Normal [facility]OLIC PAN[facility] (22105)2024-02-08 21:38:08* Test Item Value Reference Range Interpretation Comme nts NA (test code = 9436356909) 136 mmol/L 135-145 K (test code = 0388881611) 4.5 3.5-5.0 CL (test code = 7613768124) 96 mmol/L 98-108 L CO2 TOTAL (test code = 8470260772) 20 mmol/L 23-31 L AGAP (test code = 7028766584) 20 2-16 H BUN (test code = 6974388132) 34 mg/dL 7-23 H GLUCOSE (test code = 7944705184) 167 mg/dL 70-110 H CREATININE (test code = 2160-0) 1.31 mg/dL 0.50-1.04 H TOTAL BILI (test code = 9506316012) 0.6 mg/dL 0.1-1.1 CALCIUM (test code = 3297917955) 9.9 mg/dL 8.6-10.6 T PROTEIN (test code = 5629722424) 6.6 g/dL 6.3-8.2 ALBUMIN (test code = 5576215564) 3.9 g/dL 3.5-5.0 ALK PHOS (test code = 5209280789) 58 U/L 34-122 ALTv (test code = 1742-6) 12 U/L 5-35 AST(SGOT) (test code = 2525951370) 22 U/L 13-40 eGFR (test code = 50595-7) 42.8 mL/min/1.73m2 CKD-EPI eGFR (2020). Assuming creatinine has been stable day-to-day for at least three months, the eGFR indicates Category G3b (30 - 44 mL/min/1.73 m2) Lab Interpretation (test code = 77344-7) Abnormal [facility], [id number] 21:37:27* Test Item Value Reference Range Interpretation Comme nts LIPASE (test code = 1844484820) 141 U/L 0-220 Lab Interpretation (test cod e = 65009-4) Normal [facility] WITH [id number] 21:24:45* Test Item Value Reference Range Interpretation Comme nts WBC (test code = 6690-2) 8.35 4.30-11.10 RBC (test code = 789-8) 4.01 3.93-5.25 HGB (test code = 718-7) 11.2 g/dL 11.6-15.0 L HCT (test code = 4544-3) 36.5 % 35.7-45.2 MCV (test code = 787-2) 91.0 fL 80.6-95.5 MCH (test code = 785-6) 27.9 pg 25.9-32.8 MCHC (test code = 786-4) 30.7 g/dL 31.6-35.1 L RDW-SD (test code = 69650-4) 56.7 fL 39.0-49.9 H RDW-CV (test code = 788-0) 17.2 % 12.0-15.5 H PLT (test code = 777-3) 299 166-358 MPV (test code = 48367-6) 11.2 fL 9.5-12.9 NRBC/100 WBC (test code = 3306054181) 0.0 0.0-10.0 NRBC x10^3 (test code = 3062374663) See_Comment [Automated SCADA Accessa ge] The system which generated this result transmitted reference range: 10*3/?L. The reference range was not used to interpret this result as normal/abnormal. GRAN MAT (NEUT) % (test code = 770-8) 58.0 % IMM GRAN % (test code = 3400329293) 0.50 % LYMPH % (test code = 736-9) 28.7 % MONO % (test code = 5905-5) 12.0 % EOS % (test code = 713-8) 0.0 % BASO % (test code = 706-2) 0.8 % GRAN MAT x10^3(ANC) (test code = 4839710492) 4.84 10*3/uL 1.88-7.09 IMM GRAN x10^3 (test code = 5641240361) 0.04 10*3/uL 0.00-0.06 LYMPH x10^3 (test code = 731-0) 2.40 10*3/uL 1.32-3.29 MONO x10^3 (test code = 742-7) 1.00 10*3/uL 0.33-0.92 H EOS x10^3 (test code = 711-2) 0.03-0.39 L BASO x10^3 (test code = 704-7) 0.07 10*3/uL 0.01-0.07 Lab Interpretation (test code = 94640-3) Abnormal [facility] GLUCOSE (AUTOMATED)2023-06-17 18:01:59* Test Item Value Reference Range Interpretation Comme nts POCT GLU (test code = 1661758706) 398 mg/dL 70-110 H Lab Interpretation (test cod e = 76177-0) Abnormal [facility] GLUCOSE (AUTOMATED)2023-06-17 13:58:32* Test Item Value Reference Range Interpretation Comme nts POCT GLU (test code = 8947747535) 274 mg/dL 70-110 H Lab Interpretation (test cod e = 01611-3) Abnormal [facility] GLUCOSE (AUTOMATED)2023-06-17 09:04:04* Test Item Value Reference Range Interpretation Comme nts POCT GLU (test code = 9418523235) 255 mg/dL 70-110 H Lab Interpretation (test cod e = 51810-7) Abnormal [facility] GLUCOSE (AUTOMATED)2023-06-17 02:16:09* Test Item Value Reference Range Interpretation Comme nts POCT GLU (test code = 5012873338) 304 mg/dL 70-110 H Lab Interpretation (test cod e = 68253-1) Abnormal [facility] GLUCOSE (AUTOMATED)2023-06-16 22:48:31* Test Item Value Reference Range Interpretation Comme nts POCT GLU (test code = 0513689156) 280 mg/dL 70-110 H Lab Interpretation (test cod e = 70630-7) Abnormal [facility] GLUCOSE (AUTOMATED)2023-06-16 17:53:23* Test Item Value Reference Range Interpretation Comme nts POCT GLU (test code = 2609709564) 328 mg/dL 70-110 H Lab Interpretation (test cod e = 72521-6) Abnormal [facility] GLUCOSE (AUTOMATED)2023-06-16 13:44:05* Test Item Value Reference Range Interpretation Comme nts POCT GLU (test code = 5021525825) 198 mg/dL 70-110 H Lab Interpretation (test cod e = 67355-2) Abnormal [facility] GLUCOSE (AUTOMATED)2023-06-16 03:11:31* Test Item Value Reference Range Interpretation Comme nts POCT GLU (test code = 3845480548) 173 mg/dL 70-110 H Lab Interpretation (test cod e = 04724-4) Abnormal [facility] GLUCOSE (AUTOMATED)2023-06-15 23:04:41* Test Item Value Reference Range Interpretation Comme nts POCT GLU (test code = 0169195984) 224 mg/dL 70-110 H Lab Interpretation (test cod e = 30713-0) [facility] 18:51:46* Test Item Value Reference Range Interpretation Comme nts Height (test code = 7976448108) 63 in Weight (test code = 2702036128) 180 lbs Systolic BP (test code = 0860639405) 141 mmHg Diastolic BP (test code = 5317382774) 73 mmHg Heart Rate (test code = 1837805125) 59 bpm BSA (test code = 2586727035) 1.83 m2 Ao root diam (test code = 9907083686) 3.50 cm Aortic root (test code = 3233158660) 3.5 cm Ao root annulus (test code = 1254957695) 3.5 cm LVOT diameter (test code = 8174393572) 1.81 cm LVOT area (test code = 9864388116) 2.60 cm2 LA size (test code = 3553988790) 4.8 cm LAV(MOD-sp4) (test code = 9019510280) 72.30 mL E wave decelartion time (test code = 2898939155) 0.19 s MV Peak E Gege (test code = 0300168499) 58.2 cm/s MV stenosis pressure 1/2 time (test code = 5542129160) 58.8 ms MV Peak A Gege (test code = 2134634045) 108.0 cm/s E/A ratio (test code = 7855700544) 0.54 ratio MV Prop V (test code = 1199524497) 56.00 cm/s MV E/e' septal (test code = 2395536890) 7.2 cm/s Tapse (test code = 3627566080) 1.46 cm LVOT stroke volume (test code = 3605692663) 49.30 cm3 LVOT peak gege (test code = 0561657400) 83.3 cm/s LVOT mn grad (test code = 1925793048) 1.6 mmHg AV LVOT peak gradient (test code = 6777882505) 2.8 mmHg LVOT peak VTI (test code = 9636723759) 19.2 cm LV V1 mean (test code = 9180246205) 60.60 cm/s Aortic valve mean velocity (test code = 4009502608) 89.0 cm/s Ao peak gege (test code = 7374337409) 123.2 cm/s Ao VTI (test code = 1173330792) 25.4 cm AV area by cont VTI (test code = 6200656130) 1.9 cm2 AV area peak gege (test code = 7109743883) 1.7 cm2 Ao max PG (test code = 7720855580) 6.10 mm[Hg] AV peak gradient (test code = 4489978121) 6.1 mmHg AV valve area (test code = 5347625092) 1.94 cm2 AV mean gradient (test code = 5168660551) 3.5 mmHg LVIDD (test code = 7520401157) 4.90 cm Left Ventricular End Diastolic Volume by Teichholz Method (test code = 9106501) 112.8 mL IVS (test code = 4746166744) 1.22 cm Interventricular Septum Diastolic Thickness by 2D (test code = 2245205) 1.22 cm LVPWD (test code = 6368782843) 1.25 cm PW (test code = 0736242971) 1.25 cm 0.6-1.1 EF(Teich) (test code = 1908764615) 51.90 % LVIDS (test code = 4016553837) 3.60 cm Left Ventricular End Systolic Volume by Teichholz Method (test code = 0137679) 54.3 mL FS (test code = 9535827988) 27 % EF - 2D (test code = 37214382) 51.90 % Radiology Study observation (narrative) (test code = 88032-9) JEY (test code = JEY) ?Left?Ventricle: Left ventricle is mildly dilated. Mildly increased wall thickness. Large apex severe hypokinesis, mild hypokinesis of the rest segments. Moderately reduced systolic function with a visually estimated EF of 30 - 35%. There is impaired relaxation. Normal left ventricular filling pressure. ?Right?Ventricle: Right ventricle size is normal. Mildly reduced systolic function. ?Tricuspid?Valve: Insufficient tricuspid regurgitation jet to estimate RVSP . ?RA pressure is 0-5 mmHg. ?Left?Atrium: Left atrium is mildly dilated. Left VentricleLeft ventricle is mildly dilated. Mildly increased wall thickness. Large apex severe hypokinesis, mild hypokinesis of the rest segments. Moderately reduced systolic function with a visually estimated EF of 30 - 35%. There is impaired relaxation. Normal left ventricular filling pressure.Right VentricleRight ventricle size is normal. Mildly reduced systolic function.Left AtriumLeft atrium is mildly dilated.Right AtriumRight atrium size is normal.IVC/SVCIVC diameter is less than or equal to 21 mm and decreases greater than 50% during inspiration; therefore the estimated right atrial pressure is normal (~0-5 mmHg).Mitral ValveMitral valve structure is normal. Trace transvalvular regurgitation.Tricusp id ValveTricuspid valve structure is normal. Trace transvalvular regurgitation. Insufficient tricuspid regurgitation jet to estimate RVSP . RA pressure is 0-5 mmHg.Aortic ValveTricuspid. Mildly thickened cusps.Pulmonic ValveNot well visualized.Ascending AortaNormal sized aorta.PericardiumThe pericardium is normal. No pericardial effusion.Study DetailsStudy quality was adequate. A complete echocardiogram was performed using 2D, color flow Doppler and spectral Doppler. 5 mL of Lumason ultrasound enhancing agent used. [facility] 17:41:25* Test Item Value Reference Range Interpretation Comme [facility] POCT GLU (test code = 2827697162) 172 mg/dL 70-110 H Lab Interpretation (test cod e = 32485-2) Abnormal [facility] [id number] 07:50:20* Test Item Value Reference Range Interpretation Comme [facility] TROPONIN I (test code = 8040571886) 0.017 ng/mL <=0.034 JEY (test code = JEY) Reference (Normal) Range (defined by the 99th percentile reference limit): <= 0.034 ng/mL Note: Cardiac troponin begins to rise 3-4 hours after the onset of ischemia. Repeat in 4-6 hours if the sample was drawn within 3-4 hours of the onset of the symptom and found normal. Diagnosis of myocardial injury is made with acute changes in cTn concentrations with at least one serial sample above the 99th percentile upper reference limit (URL), taken together with the patient's clinical presentation. Biotin has been reported to cause a negative bias, interpret results relative to patient's use of biotin. Lab Interpretation (test code = 90909-1) Normal [facility] (Total Cholesterol, Triglycerides, HDL)2023-06-15 07:38:58* Test Item Value Reference Range Interpretation Comme nts CHOL (test code = 9508395217) 105 mg/dL 120-200 L HDL (test code = 9549692116) 39 mg/dL >=50 L HDLC RATIO (test code = 5983596453) 2.7 <=4.5 TRIG (test code = 8297645598) 117 mg/dL 30-170 LDL CHOL (test code = 05202-3) 43 mg/dL <=160 VLDL (test code = 4548668453) 23 mg/dL 5-60 Lab Interpretation (test cod e = 22375-2) Abnormal [facility] [id number] 04:21:30* Test Item Value Reference Range Interpretation Comme nts TROPONIN I (test code = 4734450519) 0.020 ng/mL <=0.034 JEY (test code = JEY) Reference (Normal) Range (defined by the 99th percentile reference limit): <= 0.034 ng/mL Note: Cardiac troponin begins to rise 3-4 hours after the onset of ischemia. Repeat in 4-6 hours if the sample was drawn within 3-4 hours of the onset of the symptom and found normal. Diagnosis of myocardial injury is made with acute changes in cTn concentrations with at least one serial sample above the 99th percentile upper reference limit (URL), taken together with the patient's clinical presentation. Biotin has been reported to cause a negative bias, interpret results relative to patient's use of biotin. Lab Interpretation (test code = 90710-2) Normal [facility]-[id number] 04:19:09* Test Item Value Reference Range Interpretation Comments D-DIMER (test code = 2702983869) 0.75 See_Comment H [Automated message] The system which generated this result transmitted reference range: <0.41 ?g/mL (FEU). The reference range was not used to interpret this result as normal/abnormal. JEY (test code = JEY) This test may be used in conjunction with a clinical pretest probability (PTP) assessment model to exclude venous thromboembolism (VTE) in patients suspected of deep venous thrombosis (DVT) and pulmonary embolism (PE) A D-Dimer value less than 0.50 ?g/ml (FEU) has a negative predicative value of 96 to 100% (95% CI)and 97 to 100% (95% CI) as an aid in the diagnosis of deep vein thrombosis (DVT) and pulmonary embolism when there is low or moderate pretest probability of PE or DVT. D-Dimer values are expressed in initial fibrinogen equivalent units (FEU)" The assay results should be used with other information, including the clinical context, in forming a diagnosis. Lab Interpretation (test code = 92983-1) Abnormal [facility] [id number] 04:18:49* Test Item Value Reference Range Interpretation Comme nts NT-proBNP (test code = 62893-1) 1180 pg/mL <=125 H JEY (test code = JEY) Positive: Heart Failure Likely Lab Interpretation (test code = 70107-9) Abnormal [facility]OLIC PANEL ([id number])2023-06-15 04:10:32* Test Item Value Reference Range Interpretation Comme nts NA (test code = 6866629264) 135 mmol/L 135-145 K (test code = 2375560371) 4.5 mmol/L 3.5-5.0 CL (test code = 4510558953) 100 mmol/L 98-108 CO2 TOTAL (test code = 1299133145) 24 mmol/L 23-31 AGAP (test code = 7048933881) 11 2-16 BUN (test code = 5141541431) 46 mg/dL 7-23 H GLUCOSE (test code = 0035757186) 192 mg/dL 70-110 H CREATININE (test code = 1316491265) 1.49 mg/dL 0.50-1.04 H TOTAL BILI (test code = 8710562077) 0.7 mg/dL 0.1-1.1 CALCIUM (test code = 7191063653) 9.5 mg/dL 8.6-10.6 T PROTEIN (test code = 4549525011) 6.6 g/dL 6.3-8.2 ALBUMIN (test code = 7605485412) 3.7 g/dL 3.5-5.0 ALK PHOS (test code = 4020811005) 70 U/L 34-122 ALTv (test code = 1742-6) 18 U/L 5-35 AST(SGOT) (test code = 5082914391) 25 U/L 13-40 eGFR (test code = 16652-5) 36.7 mL/min/1.73m2 CKD-EPI eGFR (2020). Assuming creatinine has been stable day-to-day for at least three months, the eGFR indicates Category G3b (30 - 44 mL/min/1.73 m2) Lab Interpretation (test code = 51235-1) Abnormal [facility]23[facility] 04:10:31* Test Item Value Reference Range Interpretation Comme nts LIPASE (test code = 4192534056) 124 U/L 0-220 Lab Interpretation (test cod e = 66085-6) Normal [facility] WITH [id number] 03:54:08* Test Item Value Reference Range Interpretation Comme nts WBC (test code = 6690-2) 7.52 See_Comment [Automated messa ge] The system which generated this result transmitted reference range: 4.30 - 11.10 10*3/?L. The reference range was not used to interpret this result as normal/abnormal. RBC (test code = 789-8) 4.15 See_Comment [Automated messa ge] The system which generated this result transmitted reference range: 3.93 - 5.25 10*6/?L. The reference range was not used to interpret this result as normal/abnormal. HGB (test code = 718-7) 12.3 g/dL 11.6-15.0 HCT (test code = 4544-3) 37.7 % 35.7-45.2 MCV (test code = 787-2) 90.8 fL 80.6-95.5 MCH (test code = 785-6) 29.6 pg 25.9-32.8 MCHC (test code = 786-4) 32.6 g/dL 31.6-35.1 RDW-SD (test code = 79239-7) 47.1 fL 39.0-49.9 RDW-CV (test code = 788-0) 14.1 % 12.0-15.5 PLT (test code = 777-3) 287 See_Comment [Automated messa ge] The system which generated this result transmitted reference range: 166 - 358 10*3/?L. The reference range was not used to interpret this result as normal/abnormal. MPV (test code = 47712-5) 10.5 fL 9.5-12.9 NRBC/100 WBC (test code = 1580210905) 0.0 See_Comment [Automated [employer] ssage] The system which generated this result transmitted reference range: 0.0 - 10.0 /100 WBCs. The reference range was not used to interpret this result as normal/abnormal. NRBC x10^3 (test code = 9072592577) See_Comment [Automated [employer]] The system which generated this result transmitted reference range: 10*3/?L. The reference range was not used to interpret this result as normal/abnormal. GRAN MAT (NEUT) % (test code = 770-8) 56.9 % IMM GRAN % (test code = 3126594352) 0.40 % LYMPH % (test code = 736-9) 27.8 % MONO % (test code = 5905-5) 14.0 % EOS % (test code = 713-8) 0.0 % BASO % (test code = 706-2) 0.9 % GRAN MAT x10^3(ANC) (test code = 6909357094) 4.28 10*3/uL 1.88-7.09 IMM GRAN x10^3 (test code = 6407252721) 0.03 10*3/uL 0.00-0.06 LYMPH x10^3 (test code = 731-0) 2.09 10*3/uL 1.32-3.29 MONO x10^3 (test code = 742-7) 1.05 10*3/uL 0.33-0.92 H EOS x10^3 (test code = 711-2) 0.03-0.39 L BASO x10^3 (test code = 704-7) 0.07 10*3/uL 0.01-0.07 Lab Interpretation (test code = 16475-7) Abnormal [facility] [id number] 17:09:00* Test Item Value Reference Range Interpretation Comme nts SODIUM (test code = NA) 137 mmol/L 135-145 N POTASSIUM (test code = K) 4.3 mmol/L 3.6-5.0 N CHLORIDE (test code = CL) 103 mmol/L 101-111 N CARBON DIOXIDE (test code = CO2) 21 mmol/L 21-31 N GLUCOSE (test code = GLU) 209 mg/dl 70-100 H BLOOD UREA NITROGEN (test code = BUN) 33 mg/dl 6-20 H GLOMERULAR FILTRATION RATE (test code = GFR) 39 >60 L The Glomerular Filtration Rate is a calculated parameterbased on serum Creatinine, patient age and sex. GFR valuesless than 60 mL/min/1.73 square meters are indicative ofChronic Kidney Disease. Values less than 15 mL/min/1.73square meters indicate Kidney failure. The calculation forGFR is based on the CKD-EPI (2020) calculation. This formulais race indifferent and is the recommended formula for GFRby the National Kidney Foundation for Adults.The GFR will not calculate if the sex is unknown or if thepatient's age is <18 years. CREATININE (test code = CREAT) 1.42 mg/dL 0.44-1.03 H TOTAL PROTEIN (test code = PROT) 5.3 g/dL 6.7-8.2 L ALBUMIN (test code = ALB) 3.3 g/dL 3.2-5.5 N CALCIUM (test code = CA) 10.0 mg/dL 8.5-10.5 N BILIRUBIN TOTAL (test code = BILT) 0.60 mg/dL 0.2-1.3 N SGOT/AST (test code = AST) 23 U/L 10-42 N SGPT/ALT (test code = ALT) 17 U/L 10-60 N ALKALINE PHOSPHATASE (test code = ALKP) 60 U/L 42-121 N INDEX HEMOLYSIS (test code = HEMINDEX) 1 Index/DL See_Comment [Automated messa ge] The system which generated this result transmitted reference range: 1 NORMAL. The reference range was not used to interpret this result as normal/abnormal. INDEX ICTERIC (test code = ICTINDEX) 1 Index/DL See_Comment [Automated mess age] The system which generated this result transmitted reference range: 1 NORMAL. The reference range was not used to interpret this result as normal/abnormal. INDEX LIPEMIA (test code = LIPINDEX) 0 Index/DL See_Comment [Automated mess age] The system which generated this result transmitted reference range: 1 NORMAL. The reference range was not used to interpret this result as normal/abnormal. URINALYSIS [id number] 17:04:00* Test Item Value Reference Range Interpretation Comme nts UA COLOR (test code = COLU) YELLOW YELLOW UA APPEARANCE (test code = APPU) Clear CLEAR UA GLUCOSE DIPSTICK (test co de = DGLUU) 3+ NEGATIVE UA BILIRUBIN DIPSTICK (test code = BILU) NEGATIVE NEGATIVE UA KETONE DIPSTICK (test cod e = KETU) NEGATIVE NEGATIVE UA SPECIFIC GRAVITY (test co de = SGU) 1.011 1.001-1.030 UA BLOOD DIPSTICK (test code = VICKY) NEGATIVE NEGATIVE UA PH DIPSTICK (test code = LUISA) 6.0 5.0-9.0 UA PROTEIN DIPSTICK (test co de = PROU) 1+ NEGATIVE A UA UROBILINOGEN DIPSTICK (te st code = URO) NEGATIVE <=1.0 UA NITRITE DIPSTICK (test co de = MAURICIO) POSITIVE NEGATIVE A UA ASCORBIC ACID DIPSTICK (t est code = AAU) NEGATIVE UA LEUKOCYTE ESTERASE DIPSTI CK (test code = LEUU) TRACE NEGATIVE A UA WBC (test code = WBCU) 6-10 /HPF 0-5 UA RBC (test code = RBCU) 0-5 /HPF 0-5 UA EPITHELIAL CELLS (test co de = EPIU) RARE /LPF NONE-FEW UA BACTERIA (test code = BACU) None /HPF NONE SEEN UA MUCUS (test code = MUCU) 1+ /LPF NONE SEEN CBC W/AUTO [id number] 16:50:00* Test Item Value Reference Range Interpretation Comme nts WHITE BLOOD CELL (test code = WBC) 8.8 x10 3/uL 3.2-11.5 N RED BLOOD CELL (test code = RBC) 4.17 x10(6)/m 3.70-5.10 N HEMOGLOBIN (test code = HGB) 12.1 g/dL 12.0-15.0 N HEMATOCRIT (test code = HCT) 39.1 % 35.7-44.8 N MEAN CELL VOLUME (test code = MCV) 94 fL 80-100 N MEAN CELL HGB (test code = MCH) 29.0 pg 26.2-33.8 N MEAN CELL HGB CONCENTRATION (test code = MCHC) 30.9 g/dL 30.0-34.0 N RED CELL DISTRIBUTION WIDTH (test code = RDW) 16.9 % 11.3-14.5 H PLATELET COUNT (test code = PLT) 256 x10 3/uL 130-408 N MEAN PLATELET VOLUME (test c ode = MPV) 10.6 fL 8.6-12.6 N NEUTROPHIL % (test code = NT%) 63.0 % 40.0-70.0 N IMMATURE GRANULOCYTE % (test code = IG%) 0.3 % 0.0-2.0 N LYMPHOCYTE % (test code = LY%) 25.3 % 20-40 N MONOCYTE % (test code = MO%) 10.6 % 1-10 H EOSINOPHIL % (test code = EO%) 0.1 % 0.0-5.0 N BASOPHIL % (test code = BA%) 0.7 % 0.0-1.0 N NUCLEATED RBC % (test code = NRBC%) 0.2 % 0.0-0.9 N NEUTROPHIL # (test code = NT#) 5.5 x10 3/uL 1.6-7.2 N LYMPHOCYTE # (test code = LY#) 2.22 x10 3/uL 1.1-2.7 N MONOCYTE # (test code = MO#) 0.9 x10 3/uL 0.3-0.8 H EOSINOPHIL # (test code = EO#) 0.0 x10 3/uL 0.0-0.5 N BASOPHIL # (test code = BA#) 0.1 x10 3/uL 0.0-0.1 N POCT GLUCOSE (AUTOMATED)2022-07-30 18:10:37* Test Item Value Reference Range Interpretation Comme [facility] POCT GLU (test code = 4997272954) 182 mg/dL 70-110 H Lab Interpretation (test cod e = 91058-6) [facility]2022-[facility]-30 13:56:52* Test Item Value Reference Range Interpretation Comme [facility] POCT GLU (test code = 7251054521) 131 mg/dL 70-110 H Lab Interpretation (test cod e = 12771-2) Abnormal [facility] [id number] 13:23:09* Test Item Value Reference Range Interpretation Comments TROPONIN I (test code = 2772125122) 0.016 ng/mL See_Comment [Automated message] The system which generated this result transmitted reference range: <=0.034. The reference range was not used to interpret this result as normal/abnormal. JEY (test code = JEY) Reference (Normal) Range (defined by the 99th percentile reference limit): <= 0.034 ng/mL Note: Cardiac troponin begins to rise 3-4 hours after the onset of ischemia. Repeat in 4-6 hours if the sample was drawn within 3-4 hours of the onset of the symptom and found normal. Diagnosis of myocardial injury is made with acute changes in cTn concentrations with at least one serial sample above the 99th percentile upper reference limit (URL), taken together with the patient's clinical presentation. Biotin has been reported to cause a negative bias, interpret results relative to patient's use of biotin. Lab Interpretation (test code = 03462-6) Normal [facility] [id number] 13:20:08* Test Item Value Reference Range Interpretation Comme nts NT-proBNP (test code = 7539762207) 867 pg/mL See_Comment H [Automated message] The system which generated this result transmitted reference range: <=125. The reference range was not used to interpret this result as normal/abnormal. JEY (test code = JEY) Biotin has been reported to cause a negative bias, interpret results relative to patient's use of biotin. Lab Interpretation (test code = 92722-7) Abnormal [facility] (28148)2022-07-30 13:18:42* Test Item Value Reference Range Interpretation Comme nts NA (test code = 4534247325) 135 mmol/L 135-145 K (test code = 1457082457) 3.5 mmol/L 3.5-5.0 CL (test code = 3794225196) 100 mmol/L 98-108 CO2 TOTAL (test code = 4302890643) 30 mmol/L 23-31 AGAP (test code = 6674778371) 2-16 BUN (test code = 8354127223) 40 mg/dL 7-23 H GLUCOSE (test code = 4115285632) 121 mg/dL 70-110 H CREATININE (test code = 8104620931) 1.12 mg/dL 0.50-1.04 H TOTAL BILI (test code = 8725508290) 0.7 mg/dL 0.1-1.1 CALCIUM (test code = 8586678516) 9.5 mg/dL 8.6-10.6 T PROTEIN (test code = 7384484123) 6.1 g/dL 6.3-8.2 L ALBUMIN (test code = 4157698128) 3.6 g/dL 3.5-5.0 ALK PHOS (test code = 0498348925) 94 U/L 34-122 ALTv (test code = 1742-6) 14 U/L 5-35 AST(SGOT) (test code = 7548431264) 25 U/L 13-40 eGFR (test code = 0556254912) mL/min/1.73m2 JEY (test code = JEY) Association of Glomerular Filtration Rate (GFR) and Staging of Kidney Disease* + --+ --+ ------+| GFR (mL/min/1.73 m2) ?| With Kidney Damage ?| ?Without Kidney Damage+ --------+ --------+ +| ?>90 ?| ?Stage one ?| ? Normal ?+ ---+ ---+ -------+| ?60-89 ?| ?Stage two ?| ? Decreased GFR ? + --+ --+ ------+| ?30-59 ?| ?Stage three ?| ? Stage three ? + --+ --+ ------+| ?15-29 ?| ?Stage four ? | ? Stage four ?+ ---+ ---+ -------+| ?<15 (or dialysis) ? ?| ?Stage five ? | ? Stage five ?+ ---+ ---+ -------+ *Each stage assumes the associated GFR level has been in effect for at least three months. ?Stages 1 to 5, with or without kidney disease, indicate chronic kidney disease. Notes: Determination of stages one and two (with eGFR >59mL/min/1.73 m2) requires estimation of kidney damage for at least three months as defined by structural or functional abnormalities of the kidney, manifested by either:Pathological abnormalities or Markers of kidney damage (including abnormalities in the composition of the blood or urine or abnormalities in imaging tests). Lab Interpretation (test code = 05044-6) Abnormal [facility] WITH [id number] 12:01:39* Test Item Value Reference Range Interpretation Comme nts WBC (test code = 6690-2) See_Comment [Automated [employer]] The system which generated this result transmitted reference range: 4.30 - 11.10 10*3/?L. The reference range was not used to interpret this result as normal/abnormal. RBC (test code = 789-8) See_Comment [Automated messa ge] The system which generated this result transmitted reference range: 3.93 - 5.25 10*6/?L. The reference range was not used to interpret this result as normal/abnormal. HGB (test code = 718-7) 8.7 g/dL 11.6-15.0 L HCT (test code = 4544-3) 29.2 % 35.7-45.2 L MCV (test code = 787-2) 74.3 fL 80.6-95.5 L MCH (test code = 785-6) 22.1 pg 25.9-32.8 L MCHC (test code = 786-4) 29.8 g/dL 31.6-35.1 L RDW-SD (test code = 89515-8) 46.1 fL 39.0-49.9 RDW-CV (test code = 788-0) 17.1 % 12.0-15.5 H PLT (test code = 777-3) See_Comment H [Automated messa ge] The system which generated this result transmitted reference range: 166 - 358 10*3/?L. The reference range was not used to interpret this result as normal/abnormal. MPV (test code = 11832-2) 10.4 fL 9.5-12.9 NRBC/100 WBC (test code = 6517634314) See_Comment [Automated [employer] ssage] The system which generated this result transmitted reference range: 0.0 - 10.0 /100 WBCs. The reference range was not used to interpret this result as normal/abnormal. NRBC x10^3 (test code = 9799826001) See_Comment [Automated messa ge] The system which generated this result transmitted reference range: 10*3/?L. The reference range was not used to interpret this result as normal/abnormal. GRAN MAT (NEUT) % (test code = 770-8) 64.6 % IMM GRAN % (test code = 1177985060) 0.50 % LYMPH % (test code = 736-9) 21.9 % MONO % (test code = 5905-5) 12.4 % EOS % (test code = 713-8) 0.0 % BASO % (test code = 706-2) 0.6 % GRAN MAT x10^3(ANC) (test code = 8360007399) 5.59 10*3/uL 1.88-7.09 IMM GRAN x10^3 (test code = 0504593488) 0.04 10*3/uL 0.00-0.06 LYMPH x10^3 (test code = 731-0) 1.89 10*3/uL 1.32-3.29 MONO x10^3 (test code = 742-7) 1.07 10*3/uL 0.33-0.92 H EOS x10^3 (test code = 711-2) 0.03-0.39 L BASO x10^3 (test code = 704-7) 0.05 10*3/uL 0.01-0.07 Lab Interpretation (test code = 17829-3) [facility] 04:08:22* Test Item Value Reference Range Interpretation Comme [facility] POCT GLU (test code = 4572814448) 191 mg/dL 70-110 H Lab Interpretation (test cod e = 10065-7) [facility]normal [facility]2022-07-29 23:55:12* Test Item Value Reference Range Interpretation Comme nts Height (test code = 0521386518) in Weight (test code = 4672298093) lbs Systolic BP (test code = 0665221151) mmHg Diastolic BP (test code = 4665164334) mmHg Heart Rate (test code = 3333242201) bpm BSA (test code = 8682075829) 1.71 m2 Ao root diam (test code = 3671207265) 3.60 cm Aortic root (test code = 1225964281) 3.6 cm Ao root annulus (test code = 3700134178) 3.6 cm LVOT diameter (test code = 9348472409) 2.05 cm LVOT area (test code = 0134448875) 3.30 cm2 LVIDD (test code = 1799039341) 4.40 cm Left Ventricular End Diastolic Volume by Teichholz Method (test code = 5846184) 85.7 mL IVS (test code = 7963476654) 1.30 cm Interventricular Septum Diastolic Thickness by 2D (test code = 2357861) 1.30 cm LVPWD (test code = 4475011947) 1.29 cm PW (test code = 1781492480) 1.29 cm 0.6-1.1 EF(Teich) (test code = 5516502918) 53.60 % LVIDS (test code = 8412062271) 3.20 cm Left Ventricular End Systolic Volume by Teichholz Method (test code = 8868391) 39.8 mL FS (test code = 7549944980) 27 % EF - 2D (test code = 25669479) 53.60 % LA size (test code = 7193277440) 4.2 cm LAV(MOD-sp4) (test code = 9172923851) 102.10 mL E wave decelartion time (test code = 5690978723) 0.20 s MV stenosis pressure 1/2 time (test code = 8339767346) 59.5 ms MV Peak E Gege (test code = 7526580421) 87.2 cm/s MV Peak A Gege (test code = 1818457435) 113.6 cm/s E/A ratio (test code = 6235997974) ratio MR max PG (test code = 2670656037) 77.70 mm[Hg] MR max gege (test code = 6511377151) 440.90 cm/s Mr max gege (test code = 4236467022) 440.9 m/s MV Prop V (test code = 7006867299) 34.40 cm/s MV E/e' septal (test code = 2483570893) 8.5 cm/s Tapse (test code = 1903270592) 1.49 cm LVOT stroke volume (test code = 8568962619) 78.00 cm3 LVOT peak gege (test code = 4514088968) 102.3 cm/s LVOT mn grad (test code = 3232017012) mmHg AV LVOT peak gradient (test code = 8418487535) mmHg LVOT peak VTI (test code = 8454947574) 23.6 cm LV V1 mean (test code = 9145994632) 74.80 cm/s Aortic valve mean velocity (test code = 2792486291) 107.7 cm/s Ao peak gege (test code = 9103371019) 139.1 cm/s Ao VTI (test code = 0527450958) 31.4 cm AV area by cont VTI (test code = 1520839988) 2.5 cm2 AV area peak gege (test code = 0589815357) 2.4 cm2 Ao max PG (test code = 5384646518) 7.70 mm[Hg] AV peak gradient (test code = 6231918574) mmHg AV valve area (test code = 1224771319) 2.48 cm2 AV mean gradient (test code = 5609711632) mmHg Radiology Study observation (narrative) (test code = 41131-2) JEY (test code = JEY) ?Left?Ventricle: Left ventricle size is normal. Mildly increased wall thickness. Large apex severe hypokinesis, mild hypokinesis of the rest segments. Moderately reduced systolic function with a visually estimated EF of 35 - 40%. There is impaired relaxation. Normal left ventricular filling pressure. ?Right?Ventricle: Right ventricle size is normal. Mildly reduced systolic function. ?Tricuspid?Valve: Tricuspid valve structure is normal. Trace transvalvular regurgitation. Insufficient regurgant jet to estimate RVSP. ?RA pressure is 5-10 mmHg. ?Left?Atrium: Left atrium is severely dilated. Left VentricleLeft ventricle size is normal. Mildly increased wall thickness. Large apex severe hypokinesis, mild hypokinesis of the rest segments. Moderately reduced systolic function with a visually estimated EF of 35 - 40%. There is impaired relaxation. Normal left ventricular filling pressure.Right VentricleRight ventricle size is normal. Mildly reduced systolic function.Left AtriumLeft atrium is severely dilated.Right AtriumRight atrium size is normal. There is a prominent Eustachian valve.Mitral ValveMitral valve structure is normal. Trace transvalvular regurgitation.Tricusp id ValveTricuspid valve structure is normal. Trace transvalvular regurgitation. Insufficient regurgant jet to estimate RVSP. RA pressure is 5-10 mmHg.Aortic ValveTricuspid. Mildly thickened cusps.Pulmonic ValvePulmonic valve is normal in structure and function.Ascending AortaNormal sized aorta.PericardiumThe pericardium is normal. No pericardial effusion.Study DetailsStudy quality was adequate. A complete echocardiogram was performed using 2D, color flow Doppler and spectral Doppler. [facility] GLUCOSE (AUTOMATED)2022-07-29 22:28:23* Test Item Value Reference Range Interpretation Comme nts POCT GLU (test code = 5779318512) 183 mg/dL 70-110 H Lab Interpretation (test cod e = 91360-7) [facility]normal [facility], [id number] 18:55:00* Test Item Value Reference Range Interpretation Comme nts VIT B12 (test code = 3154085463) 277 pg/mL 240-930 JEY (test code = JEY) Biotin has been reported to cause a positive bias, interpret results relative to patient's use of biotin. Lab Interpretation (test code = 86378-2) Normal [facility]2022-[facility]-29 18:03:49* Test Item Value Reference Range Interpretation Comme nts POCT GLU (test code = 4241280644) 281 mg/dL 70-110 H Lab Interpretation (test cod e = 00498-1) Abnormal [facility]AL[facility]IN2023-01-19 17:44:30* Test Item Value Reference Range Interpretation Comments Procalcitonin (test code = 9652417154) 0.10 ng/mL See_Comment H [Automated message] The system which generated this result transmitted reference range: <=0.07. The reference range was not used to interpret this result as normal/abnormal . JEY (test code = JEY) INTERPRETATION OF PROCALCITONIN RESULTS IN ADULTS >= 18 YEARS OF AGE Initiation and discontinuation of antibiotics on patients with suspected or confirmed Lower Respiratory Tract Infection in Adults >= 18 years of age. + +------ + ----+ +|Procalcit onin |Interpretation ?|Antibiotic ? ? |Considerations ? |ng/mL ? | ?|recommendation | ? + +------ + ----+ +| <0.1 ? | Bacterial ? ? ?| Strongly ? ? ?| ? | ?| infection very | discouraged ? | Overruling: ? | ?| unlikely ? ? ? | ? | ? Clinically unstable ? ? ? + +------ + ----+ ? High risk for adverse ? ? | <0.25 ?| Bacterial ? ? ?| Discouraged ? | ? outcome ? | ?| infection ? ? ?| ? | ? SEE IMPORTANT NOTE ?| ?| unlikely ? ? ? | ? | ? + +------ + ----+ +| >=0.25 ? ? ? | Bacterial ? ? ?| Encouraged ? ?| ? | ?| infection ? ? ?| ? | ? | ?| likely ? | ? | Consider treatment failure ?+ +----- + -----+ if levels does not decrease | >0.5 ? | Bacterial ? ? ?| Strongly ? ? ?| appropriately ? | ?| infection very | encouraged ? ?| ? | ?| likely ? | ? | ? + +------ + ----+ + Discontinuation of antibiotics in high-acuity patients with suspected or confirmed sepsis in Adults >= 18 years of age. + +------ + ----+ +|Procalcit onin |Interpretation ?|Antibiotic ? ? |Considerations ? |ng/mL ? | ?|recommendation | ? + +------ + ----+ +| <0.25 ?| Bacterial ? ? ?| Strongly ? ? ?| ? | ?| infection very | discouraged ? | Overruling: ? | ?| unlikely ? ? ? | ? | ? Clinically unstable ? ? ? + +------ + ----+ ? High risk for adverse ? ? | <0.5 or drop | Bacterial ? ? ?| Discouraged ? | ? outcome ? | >80% from ? ?| infection ? ? ?| ? | ? SEE IMPORTANT NOTE ?| highest PCT ?| unlikely ? ? ? | ? | ? | level ?| ?| ? | ? + +------ + ----+ +| >=0.5 ?| Bacterial ? ? ?| Encouraged ? ?| ? | ?| infection ? ? ?| ? | ? | ?| likely ? | ? | Consider treatment failure ?+ +----- + -----+ if levels does not decrease | >1.0 ? | Bacterial ? ? ?| Strongly ? ? ?| appropriately ? | ?| infection very | encouraged ? ?| ? | ?| likely ? | ? | ? + +------ + ----+ + Percentage of drop of Procalcitonin calculation for Discontinuation of antibiotics in high-acuity patients with suspected or confirmed sepsis in Adults >= 18 years of age. ? Procalcitonin highest{}-Procalcitoni n current{}Delta Procalcitonin = ___ x100% ? Procalcitonin current {} IMPORTANT NOTE: Procalcitonin may be elevated without bacterial infection by physiologic stress related to trauma, bran, chronic dialysis, metastatic cancer, surgery in the past seven days, malaria, some fungal infections, and some forms of vasculitis. The interpretation algorithm may not apply to patients with immunosuppression (equivalent of >10 mg of prednisone daily), HIV with CD4 cell count < 350 cells/mm3, active malignancy on systemic chemotherapy, solid organ transplant or hematopoietic stem cell transplantation, or hospital acquired pneumonia. Additionally, some clinical trials of procalcitonin have excluded patients with shock requiring vasopressor use, acute respiratory failure requiring mechanical ventilation, or those with known lung abscess/empyema. For further information please refer to:[email or web address] Lab Interpretation (test code = 63532-0) [facility]normal [facility] 17:18:01* Test Item Value Reference Range Interpretation Comme nts FOLATE SER (test code = 0336893157) 15.2 ng/mL 3.0-20.0 Biotin has been reported to cause a positive bias, interpret results relative to patient's use of biotin. Lab Interpretation (test code = 28036-6) Normal [facility], [id number] 16:53:08* Test Item Value Reference Range Interpretation Comme nts VIT D 25OH (test code = 71208-2) 25-80 L JEY (test code = JEY) Deficiency: <20 ng/mLInsufficiency: 20-24 ng/mLOptimal: 25-80 ng/mL Lab Interpretation (test code = 25753-0) Abnormal [facility] [id number] 14:48:45* Test Item Value Reference Range Interpretation Comments TROPONIN I (test code = 2163309338) 0.026 ng/mL See_Comment [Automated message] The system which generated this result transmitted reference range: <=0.034. The reference range was not used to interpret this result as normal/abnormal. JEY (test code = JEY) Reference (Normal) Range (defined by the 99th percentile reference limit): <= 0.034 ng/mL Note: Cardiac troponin begins to rise 3-4 hours after the onset of ischemia. Repeat in 4-6 hours if the sample was drawn within 3-4 hours of the onset of the symptom and found normal. Diagnosis of myocardial injury is made with acute changes in cTn concentrations with at least one serial sample above the 99th percentile upper reference limit (URL), taken together with the patient's clinical presentation. Biotin has been reported to cause a negative bias, interpret results relative to patient's use of biotin. Lab Interpretation (test code = 54633-6) Normal [facility] Marshall[facility]-TERMINAL [id number] 14:45:43* Test Item Value Reference Range Interpretation Comme nts NT-proBNP (test code = 3047244068) 1120 pg/mL See_Comment H [Automated message] The system which generated this result transmitted reference range: <=125. The reference range was not used to interpret this result as normal/abnormal. JEY (test code = JEY) Biotin has been reported to cause a negative bias, interpret results relative to patient's use of biotin. Lab Interpretation (test code = 92461-4) Abnormal [facility] Marshall[facility]. METABOLIC PANEL (74078)2022-07-29 14:37:03* Test Item Value Reference Range Interpretation Comme nts NA (test code = 0944954052) 131 mmol/L 135-145 L K (test code = 8028865765) 4.6 mmol/L 3.5-5.0 CL (test code = 7683720971) 100 mmol/L 98-108 CO2 TOTAL (test code = 9045225414) 26 mmol/L 23-31 AGAP (test code = 3054660770) 2-16 BUN (test code = 2696124246) 44 mg/dL 7-23 H GLUCOSE (test code = 8862596146) 238 mg/dL 70-110 H CREATININE (test code = 0757598595) 0.97 mg/dL 0.50-1.04 TOTAL BILI (test code = 5690756488) 0.5 mg/dL 0.1-1.1 CALCIUM (test code = 1928733518) 9.3 mg/dL 8.6-10.6 T PROTEIN (test code = 1869266718) 5.4 g/dL 6.3-8.2 L ALBUMIN (test code = 1441689633) 3.3 g/dL 3.5-5.0 L ALK PHOS (test code = 1061688383) 79 U/L 34-122 ALTv (test code = 1742-6) 14 U/L 5-35 AST(SGOT) (test code = 8269112409) 21 U/L 13-40 eGFR (test code = 5321169086) mL/min/1.73m2 JEY (test code = JEY) Association of Glomerular Filtration Rate (GFR) and Staging of Kidney Disease* + --+ --+ ------+| GFR (mL/min/1.73 m2) ?| With Kidney Damage ?| ?Without Kidney Damage+ --------+ --------+ +| ?>90 ?| ?Stage one ?| ? Normal ?+ ---+ ---+ -------+| ?60-89 ?| ?Stage two ?| ? Decreased GFR ? + --+ --+ ------+| ?30-59 ?| ?Stage three ?| ? Stage three ? + --+ --+ ------+| ?15-29 ?| ?Stage four ? | ? Stage four ?+ ---+ ---+ -------+| ?<15 (or dialysis) ? ?| ?Stage five ? | ? Stage five ?+ ---+ ---+ -------+ *Each stage assumes the associated GFR level has been in effect for at least three months. ?Stages 1 to 5, with or without kidney disease, indicate chronic kidney disease. Notes: Determination of stages one and two (with eGFR >59mL/min/1.73 m2) requires estimation of kidney damage for at least three months as defined by structural or functional abnormalities of the kidney, manifested by either:Pathological abnormalities or Markers of kidney damage (including abnormalities in the composition of the blood or urine or abnormalities in imaging tests). Lab Interpretation (test code = 35194-9) [facility]normal [facility]2022-[facility]-29 14:35:01* Test Item Value Reference Range Interpretation Comme [facility] POCT GLU (test code = 8654009147) 161 mg/dL 70-110 H Lab Interpretation (test cod e = 17199-7) Abnormal [facility]OP[facility] [id number] 12:52:35* Test Item Value Reference Range Interpretation Comments TROPONIN I (test code = 8160398112) 0.025 ng/mL See_Comment [Automated message] The system which generated this result transmitted reference range: <=0.034. The reference range was not used to interpret this result as normal/abnormal. JEY (test code = JEY) Reference (Normal) Range (defined by the 99th percentile reference limit): <= 0.034 ng/mL Note: Cardiac troponin begins to rise 3-4 hours after the onset of ischemia. Repeat in 4-6 hours if the sample was drawn within 3-4 hours of the onset of the symptom and found normal. Diagnosis of myocardial injury is made with acute changes in cTn concentrations with at least one serial sample above the 99th percentile upper reference limit (URL), taken together with the patient's clinical presentation. Biotin has been reported to cause a negative bias, interpret results relative to patient's use of biotin. Lab Interpretation (test code = 73231-2) Normal [facility] MarshallCREATINE [id number] 12:45:15* Test Item Value Reference Range Interpretation Comme nts CK (test code = 1315509037) 113 U/L 33-194 Slight hemolysis Lab Interpretation (test cod e = 36332-1) Normal [facility] MarshallD-[id number] 12:20:44* Test Item Value Reference Range Interpretation Comments D-DIMER (test code = 4628203683) See_Comment [Automated message] The system which generated this result transmitted reference range: <0.41 ?g/mL (FEU). The reference range was not used to interpret this result as normal/abnormal. JEY (test code = JEY) This test may be used in conjunction with a clinical pretest probability (PTP) assessment model to exclude venous thromboembolism (VTE) in patients suspected of deep venous thrombosis (DVT) and pulmonary embolism (PE) A D-Dimer value less than 0.50 ?g/ml (FEU) has a negative predicative value of 96 to 100% (95% CI)and 97 to 100% (95% CI) as an aid in the diagnosis of deep vein thrombosis (DVT) and pulmonary embolism when there is low or moderate pretest probability of PE or DVT. D-Dimer values are expressed in initial fibrinogen equivalent units (FEU)" The assay results should be used with other information, including the clinical context, in forming a diagnosis. Lab Interpretation (test code = 04518-9) Normal [facility] MarshallProthrombin Time / [id number] 12:11:33* Test Item Value Reference Range Interpretation Comme [facility] PROTIME PATIENT (test code = 5964-2) See_Comment [Automated messa ge] The system which generated this result transmitted reference range: 12.0 - 14.7 Seconds. The reference range was not used to interpret this result as normal/abnormal. INR (test code = 6301-6) Normal INR <1.1; Warfarin Therapeutic range 2.0 to 3.0 or 2.5 to 3.5, depending upon the indications. Lab Interpretation (test code = 17351-8) [facility]HEMOGLOBIN [id number] 00:00:00* Test Item Value Reference Range Interpretation Comme [facility] A1C (test code = 4548-4) 8.5 GLUCOSE BEDSIDE [id number] 11:56:00* Test Item Value Reference Range Interpretation Comme [facility] GLUCOSE BEDSIDE TESTING (zara t code = GLUBED) 187 mg/dL 70-110 H GLUCOSE BEDSIDE [id number] 08:24:00* Test Item Value Reference Range Interpretation Comme nts GLUCOSE BEDSIDE TESTING (zara t code = GLUBED) 167 mg/dL 70-110 H GLUCOSE BEDSIDE [id number] 20:51:00* Test Item Value Reference Range Interpretation Comme nts GLUCOSE BEDSIDE TESTING (zara t code = GLUBED) 219 mg/dL 70-110 H GLUCOSE BEDSIDE [id number] 17:31:00* Test Item Value Reference Range Interpretation Comme nts GLUCOSE BEDSIDE TESTING (zara t code = GLUBED) 96 mg/dL 70-110 N GLUCOSE BEDSIDE [id number] 12:08:00* Test Item Value Reference Range Interpretation Comme nts GLUCOSE BEDSIDE TESTING (zara t code = GLUBED) 215 mg/dL 70-110 H GLUCOSE BEDSIDE [id number] 08:14:00* Test Item Value Reference Range Interpretation Comme nts GLUCOSE BEDSIDE TESTING (zara t code = GLUBED) 204 mg/dL 70-110 H GLUCOSE BEDSIDE [id number] 20:32:00* Test Item Value Reference Range Interpretation Comme nts GLUCOSE BEDSIDE TESTING (zara t code = GLUBED) 242 mg/dL 70-110 H GLUCOSE BEDSIDE [id number] 17:18:00* Test Item Value Reference Range Interpretation Comme nts GLUCOSE BEDSIDE TESTING (zara t code = GLUBED) 236 mg/dL 70-110 H GLUCOSE BEDSIDE [id number] 12:33:00* Test Item Value Reference Range Interpretation Comme nts GLUCOSE BEDSIDE TESTING (zara t code = GLUBED) 224 mg/dL 70-110 H GLUCOSE BEDSIDE [id number] 08:31:00* Test Item Value Reference Range Interpretation Comme nts GLUCOSE BEDSIDE TESTING (zara t code = GLUBED) 164 mg/dL 70-110 H CBC W/AUTO [id number] 06:15:00* Test Item Value Reference Range Interpretation Comme nts WHITE BLOOD CELL (test code = WBC) 8.3 K/mm3 3.5-11.0 N RED BLOOD CELL (test code = RBC) 2.89 M/mm3 4.70-6.10 L HEMOGLOBIN (test code = HGB) 8.1 G/DL 10.4-14.9 L HEMATOCRIT (test code = HCT) 26.4 % 31.5-44.1 L MEAN CELL VOLUME (test code = MCV) 91.3 Fl 84.5-98.6 N MEAN CELL HGB (test code = MCH) 28.0 pg 27.0-34.2 N MEAN CELL HGB CONCETRATION (test code = MCHC) 30.7 G/DL 31.5-34.0 L RED CELL DISTRIBUTION WIDTH (test code = RDW) 18.4 SD 11.5-14.5 H PLATELET COUNT (test code = PLT) 341 K/mm3 150-450 N MEAN PLATELET VOLUME (test c ode = MPV) 10.50 fL 7.0-10.5 N NEUTROPHIL % (test code = NT%) 64.3 % 40-76 IMMATURE GRANULOCYTE % (test code = IG%) 0.7 % 0.0-5.0 N LYMPHOCYTE % (test code = LY%) 23.0 % 20.5-51.1 N MONOCYTE % (test code = MO%) 11.2 % 1.7-9.3 H EOSINOPHIL % (test code = EO%) 0.7 % 0.0-6.0 N BASOPHIL % (test code = BA%) 0.1 % 0.0-2.0 N NUCLEATED RBC % (test code = NRBC%) 0.0 /100WBC% 0.0-1.0 N NEUTROPHIL # (test code = NT#) 5.3 K/mm3 1.8-7.6 N IMMATURE GRANULOCYTE # (test code = IG#) 0.06 x10 3/uL 0.00-0.03 H LYMPHOCYTE # (test code = LY#) 1.9 K/mm3 0.6-3.2 N MONOCYTE # (test code = MO#) 0.9 K/mm3 0.3-1.1 N EOSINOPHIL # (test code = EO#) 0.1 K/mm3 0.0-0.4 N BASOPHIL # (test code = BA#) 0.0 K/mm3 0.0-0.1 N NUCLEATED RBC # (test code = NRBC#) 0.0 K/mm3 0.0-0.1 N MANUAL DIFF REQUIRED (test c ode = MDIFF) NO DIFF/SCN CRITERIA GLUCOSE BEDSIDE [id number] 21:03:00* Test Item Value Reference Range Interpretation Comme nts GLUCOSE BEDSIDE TESTING (zara t code = GLUBED) 319 mg/dL 70-110 H GLUCOSE BEDSIDE [id number] 17:20:00* Test Item Value Reference Range Interpretation Comme nts GLUCOSE BEDSIDE TESTING (zara t code = GLUBED) 192 mg/dL 70-110 H GLUCOSE BEDSIDE [id number] 12:30:00* Test Item Value Reference Range Interpretation Comme nts GLUCOSE BEDSIDE TESTING (zara t code = GLUBED) 286 mg/dL 70-110 H GLUCOSE BEDSIDE [id number] 08:24:00* Test Item Value Reference Range Interpretation Comme nts GLUCOSE BEDSIDE TESTING (zara t code = GLUBED) 193 mg/dL 70-110 H GLUCOSE BEDSIDE [id number] 20:46:00* Test Item Value Reference Range Interpretation Comme nts GLUCOSE BEDSIDE TESTING (zara t code = GLUBED) 161 mg/dL 70-110 H GLUCOSE BEDSIDE [id number] 16:40:00* Test Item Value Reference Range Interpretation Comme nts GLUCOSE BEDSIDE TESTING (zara t code = GLUBED) 302 mg/dL 70-110 H GLUCOSE BEDSIDE [id number] 12:17:00* Test Item Value Reference Range Interpretation Comme nts GLUCOSE BEDSIDE TESTING (zara t code = GLUBED) 330 mg/dL 70-110 H GLUCOSE BEDSIDE [id number] 08:39:00* Test Item Value Reference Range Interpretation Comme nts GLUCOSE BEDSIDE TESTING (zara t code = GLUBED) 144 mg/dL 70-110 H BASIC METABOLIC [id number] 06:08:00* Test Item Value Reference Range Interpretation Comme nts SODIUM (test code = NA) 138 mmol/L 134-147 N POTASSIUM (test code = K) 4.1 mmol/L 3.4-5.0 N CHLORIDE (test code = CL) 104 mmol/L 100-108 N CARBON DIOXIDE (test code = CO2) 30 mmol/L 21-32 N ANION GAP (test code = GAP) 4.0 GAP calc 4.0-15.0 N GLUCOSE (test code = GLU) 141 MG/DL 70-110 H BLOOD UREA NITROGEN (test code = BUN) 40 MG/DL 7-18 H GLOMERULAR FILTRATION RATE (test code = GFR) >=60 max estimate estGFR >60 CREATININE (test code = CREAT) 0.9 MG/DL 0.6-1.0 N CALCIUM (test code = CA) 8.7 MG/DL 8.5-10.1 N CBC W/AUTO [id number] 05:50:00* Test Item Value Reference Range Interpretation Comme nts WHITE BLOOD CELL (test code = WBC) 9.5 K/mm3 3.5-11.0 N RED BLOOD CELL (test code = RBC) 2.74 M/mm3 4.70-6.10 L HEMOGLOBIN (test code = HGB) 7.5 G/DL 10.4-14.9 L HEMATOCRIT (test code = HCT) 24.4 % 31.5-44.1 L MEAN CELL VOLUME (test code = MCV) 89.1 Fl 84.5-98.6 N MEAN CELL HGB (test code = MCH) 27.4 pg 27.0-34.2 N MEAN CELL HGB CONCETRATION (test code = MCHC) 30.7 G/DL 31.5-34.0 L RED CELL DISTRIBUTION WIDTH (test code = RDW) 18.2 SD 11.5-14.5 H PLATELET COUNT (test code = PLT) 340 K/mm3 150-450 N MEAN PLATELET VOLUME (test c ode = MPV) 10.70 fL 7.0-10.5 H NEUTROPHIL % (test code = NT%) 73.9 % 40-76 N IMMATURE GRANULOCYTE % (test code = IG%) 0.6 % 0.0-5.0 N LYMPHOCYTE % (test code = LY%) 13.5 % 20.5-51.1 L MONOCYTE % (test code = MO%) 11.7 % 1.7-9.3 H EOSINOPHIL % (test code = EO%) 0.3 % 0.0-6.0 N BASOPHIL % (test code = BA%) 0.0 % 0.0-2.0 N NUCLEATED RBC % (test code = NRBC%) 0.0 /100WBC% 0.0-1.0 N NEUTROPHIL # (test code = NT#) 7.0 K/mm3 1.8-7.6 N IMMATURE GRANULOCYTE # (test code = IG#) 0.06 x10 3/uL 0.00-0.03 H LYMPHOCYTE # (test code = LY#) 1.3 K/mm3 0.6-3.2 N MONOCYTE # (test code = MO#) 1.1 K/mm3 0.3-1.1 N EOSINOPHIL # (test code = EO#) 0.0 K/mm3 0.0-0.4 N BASOPHIL # (test code = BA#) 0.0 K/mm3 0.0-0.1 N NUCLEATED RBC # (test code = NRBC#) 0.0 K/mm3 0.0-0.1 N MANUAL DIFF REQUIRED (test c ode = MDIFF) NO DIFF/SCN CRITERIA GLUCOSE BEDSIDE [id number] 20:09:00* Test Item Value Reference Range Interpretation Comme nts GLUCOSE BEDSIDE TESTING (zara t code = GLUBED) 304 mg/dL 70-110 H GLUCOSE BEDSIDE [id number] 19:39:00* Test Item Value Reference Range Interpretation Comme nts GLUCOSE BEDSIDE TESTING (zara t code = GLUBED) 175 mg/dL 70-110 H Coronavirus 2019 nCoV [id number] 11:34:00* Test Item Value Reference Range Interpretation Comme nts Coronavirus 2019 nCoV Bedsid e (test code = [id number]) Positive Negative BASIC METABOLIC [id number] 05:48:00* Test Item Value Reference Range Interpretation Comme nts SODIUM (test code = NA) 137 mmol/L 134-147 N POTASSIUM (test code = K) 5.2 mmol/L 3.4-5.0 H CHLORIDE (test code = CL) 102 mmol/L 100-108 N CARBON DIOXIDE (test code = CO2) 33 mmol/L 21-32 H ANION GAP (test code = GAP) 2.0 GAP calc 4.0-15.0 L GLUCOSE (test code = GLU) 214 MG/DL 70-110 H BLOOD UREA NITROGEN (test co de = BUN) 43 MG/DL 7-18 H GLOMERULAR FILTRATION RATE ( test code = GFR) 52 estGFR >60 L CREATININE (test code = CREAT) 1.1 MG/DL 0.6-1.0 H CALCIUM (test code = CA) 8.8 MG/DL 8.5-10.1 N CBC W/AUTO [id number] 05:34:00* Test Item Value Reference Range Interpretation Comme nts WHITE BLOOD CELL (test code = WBC) 11.4 K/mm3 3.5-11.0 H RED BLOOD CELL (test code = RBC) 2.84 M/mm3 4.70-6.10 L HEMOGLOBIN (test code = HGB) 7.9 G/DL 10.4-14.9 L HEMATOCRIT (test code = HCT) 26.1 % 31.5-44.1 L MEAN CELL VOLUME (test code = MCV) 91.9 Fl 84.5-98.6 N MEAN CELL HGB (test code = MCH) 27.8 pg 27.0-34.2 N MEAN CELL HGB CONCETRATION (test code = MCHC) 30.3 G/DL 31.5-34.0 L RED CELL DISTRIBUTION WIDTH (test code = RDW) 17.9 SD 11.5-14.5 H PLATELET COUNT (test code = PLT) 346 K/mm3 150-450 N MEAN PLATELET VOLUME (test c ode = MPV) 10.90 fL 7.0-10.5 H NEUTROPHIL % (test code = NT%) 74.9 % 40-76 N IMMATURE GRANULOCYTE % (test code = IG%) 0.7 % 0.0-5.0 N LYMPHOCYTE % (test code = LY%) 11.8 % 20.5-51.1 L MONOCYTE % (test code = MO%) 12.2 % 1.7-9.3 H EOSINOPHIL % (test code = EO%) 0.3 % 0.0-6.0 N BASOPHIL % (test code = BA%) 0.1 % 0.0-2.0 N NUCLEATED RBC % (test code = NRBC%) 0.0 /100WBC% 0.0-1.0 N NEUTROPHIL # (test code = NT#) 8.5 K/mm3 1.8-7.6 H IMMATURE GRANULOCYTE # (test code = IG#) 0.08 x10 3/uL 0.00-0.03 H LYMPHOCYTE # (test code = LY#) 1.3 K/mm3 0.6-3.2 N MONOCYTE # (test code = MO#) 1.4 K/mm3 0.3-1.1 H EOSINOPHIL # (test code = EO#) 0.0 K/mm3 0.0-0.4 N BASOPHIL # (test code = BA#) 0.0 K/mm3 0.0-0.1 N NUCLEATED RBC # (test code = NRBC#) 0.0 K/mm3 0.0-0.1 N MANUAL DIFF REQUIRED (test c ode = MDIFF) NO DIFF/SCN CRITERIA GLUCOSE BEDSIDE [id number] 20:14:00* Test Item Value Reference Range Interpretation Comme nts GLUCOSE BEDSIDE TESTING (zara t code = GLUBED) 231 mg/dL 70-110 H GLUCOSE BEDSIDE [id number] 16:38:00* Test Item Value Reference Range Interpretation Comme nts GLUCOSE BEDSIDE TESTING (zara t code = GLUBED) 225 mg/dL 70-110 H GLUCOSE BEDSIDE [id number] 12:08:00* Test Item Value Reference Range Interpretation Comme nts GLUCOSE BEDSIDE TESTING (zara t code = GLUBED) 307 mg/dL 70-110 H GLUCOSE BEDSIDE [id number] 08:28:00* Test Item Value Reference Range Interpretation Comme nts GLUCOSE BEDSIDE TESTING (zara t code = GLUBED) 114 mg/dL 70-110 H BASIC METABOLIC [id number] 06:55:00* Test Item Value Reference Range Interpretation Comme nts SODIUM (test code = NA) 138 mmol/L 134-147 N POTASSIUM (test code = K) 4.0 mmol/L 3.4-5.0 N CHLORIDE (test code = CL) 100 mmol/L 100-108 N CARBON DIOXIDE (test code = CO2) 33 mmol/L 21-32 H ANION GAP (test code = GAP) 5.0 GAP calc 4.0-15.0 N GLUCOSE (test code = GLU) 109 MG/DL 70-110 N BLOOD UREA NITROGEN (test co de = BUN) 38 MG/DL 7-18 H GLOMERULAR FILTRATION RATE ( test code = GFR) 58 estGFR >60 L CREATININE (test code = CREAT) 1.0 MG/DL 0.6-1.0 N CALCIUM (test code = CA) 8.6 MG/DL 8.5-10.1 N CBC W/AUTO [id number] 06:37:00* Test Item Value Reference Range Interpretation Comme nts WHITE BLOOD CELL (test code = WBC) 11.7 K/mm3 3.5-11.0 H RED BLOOD CELL (test code = RBC) 2.78 M/mm3 4.70-6.10 L HEMOGLOBIN (test code = HGB) 7.7 G/DL 10.4-14.9 L HEMATOCRIT (test code = HCT) 24.9 % 31.5-44.1 L MEAN CELL VOLUME (test code = MCV) 89.6 Fl 84.5-98.6 N MEAN CELL HGB (test code = MCH) 27.7 pg 27.0-34.2 N MEAN CELL HGB CONCETRATION (test code = MCHC) 30.9 G/DL 31.5-34.0 L RED CELL DISTRIBUTION WIDTH (test code = RDW) 17.5 SD 11.5-14.5 H PLATELET COUNT (test code = PLT) 348 K/mm3 150-450 N MEAN PLATELET VOLUME (test c ode = MPV) 10.80 fL 7.0-10.5 H NEUTROPHIL % (test code = NT%) 76.9 % 40-76 H IMMATURE GRANULOCYTE % (test code = IG%) 0.7 % 0.0-5.0 N LYMPHOCYTE % (test code = LY%) 11.1 % 20.5-51.1 L MONOCYTE % (test code = MO%) 11.1 % 1.7-9.3 H EOSINOPHIL % (test code = EO%) 0.2 % 0.0-6.0 N BASOPHIL % (test code = BA%) 0.0 % 0.0-2.0 N NUCLEATED RBC % (test code = NRBC%) 0.0 /100WBC% 0.0-1.0 N NEUTROPHIL # (test code = NT#) 9.0 K/mm3 1.8-7.6 H IMMATURE GRANULOCYTE # (test code = IG#) 0.08 x10 3/uL 0.00-0.03 H LYMPHOCYTE # (test code = LY#) 1.3 K/mm3 0.6-3.2 N MONOCYTE # (test code = MO#) 1.3 K/mm3 0.3-1.1 H EOSINOPHIL # (test code = EO#) 0.0 K/mm3 0.0-0.4 N BASOPHIL # (test code = BA#) 0.0 K/mm3 0.0-0.1 N NUCLEATED RBC # (test code = NRBC#) 0.0 K/mm3 0.0-0.1 N MANUAL DIFF REQUIRED (test c ode = MDIFF) NO DIFF/SCN CRITERIA GLUCOSE BEDSIDE [id number] 20:59:00* Test Item Value Reference Range Interpretation Comme nts GLUCOSE BEDSIDE TESTING (zara t code = GLUBED) 112 mg/dL 70-110 H GLUCOSE BEDSIDE [id number] 16:32:00* Test Item Value Reference Range Interpretation Comme nts GLUCOSE BEDSIDE TESTING (zara t code = GLUBED) 240 mg/dL 70-110 H GLUCOSE BEDSIDE [id number] 12:49:00* Test Item Value Reference Range Interpretation Comme nts GLUCOSE BEDSIDE TESTING (zara t code = GLUBED) 266 mg/dL 70-110 H GLUCOSE BEDSIDE [id number] 08:35:00* Test Item Value Reference Range Interpretation Comme nts GLUCOSE BEDSIDE TESTING (zara t code = GLUBED) 186 mg/dL 70-110 H CBC W/AUTO [id number] 06:52:00* Test Item Value Reference Range Interpretation Comme nts WHITE BLOOD CELL (test code = WBC) [...] 27.0-34.2 N MEAN CELL HGB CONCETRATION (test code = MCHC) 29.9 G/DL 31.5-34.0 L RED CELL DISTRIBUTION WIDTH (test code = RDW) 17.2 SD 11.5-14.5 H PLATELET COUNT (test code = PLT) 356 K/mm3 150-450 N MEAN PLATELET VOLUME (test code = MPV) 11.20 fL 7.0-10.5 H NEUTROPHIL % (test code = NT%) 73.6 % 40-76 N IMMATURE GRANULOCYTE % (test code = IG%) 0.8 % 0.0-5.0 N LYMPHOCYTE % (test code = LY%) 12.5 % 20.5-51.1 L MONOCYTE % (test code = MO%) 12.8 % 1.7-9.3 H EOSINOPHIL % (test code = EO%) 0.2 % 0.0-6.0 N BASOPHIL % (test code = BA%) 0.1 % 0.0-2.0 N NUCLEATED RBC % (test code = NRBC%) 0.0 /100WBC% 0.0-1.0 N NEUTROPHIL # (test code = NT#) 9.8 K/mm3 1.8-7.6 H IMMATURE GRANULOCYTE # (test code = IG#) 0.10 x10 3/uL 0.00-0.03 H LYMPHOCYTE # (test code = LY#) 1.7 K/mm3 0.6-3.2 N MONOCYTE # (test code = MO#) 1.7 K/mm3 0.3-1.1 H EOSINOPHIL # (test code = EO#) 0.0 K/mm3 0.0-0.4 N BASOPHIL # (test code = BA#) 0.0 K/mm3 0.0-0.1 N NUCLEATED RBC # (test code = NRBC#) 0.0 K/mm3 0.0-0.1 N MANUAL DIFF REQUIRED (test code = MDIFF) NO DIFF/SCN CRITERIA SLIDE REVIEW CONSISTANT WITH AUTO DIFFERENTIAL. BASIC METABOLIC [id number] 06:28:00* Test Item Value Reference Range Interpretation Comme nts SODIUM (test code = NA) 135 mmol/L 134-147 N POTASSIUM (test code = K) 4.4 mmol/L 3.4-5.0 N CHLORIDE (test code = CL) 99 mmol/L 100-108 L CARBON DIOXIDE (test code = CO2) 31 mmol/L 21-32 N ANION GAP (test code = GAP) 5.0 GAP calc 4.0-15.0 N GLUCOSE (test code = GLU) 150 MG/DL 70-110 H BLOOD UREA NITROGEN (test code = BUN) 37 MG/DL 7-18 H GLOMERULAR FILTRATION RATE (test code = GFR) >=60 max estimate estGFR >60 CREATININE (test code = CREAT) 0.9 MG/DL 0.6-1.0 N CALCIUM (test code = CA) 8.8 MG/DL 8.5-10.1 N [id number] 06:28:00* Test Item Value Reference Range Interpretation Comme nts PHOSPHOROUS (test code = PHOS) 2.6 MG/DL 2.5-4.9 N LACTIC DEHYDROGENASE(LDH)2020-06-23 06:28:00* Test Item Value Reference Range Interpretation Comme nts LACTIC DEHYDROGENASE(LDH) (t est code = LDH) 271 Unit/L 84-246 H [id number] 06:28:00* Test Item Value Reference Range Interpretation Comme nts MAGNESIUM (test code = MAG) 2.1 MG/DL 1.8-2.4 N CBC W/AUTO [id number] 06:15:00* Test Item Value Reference Range Interpretation Comme nts WHITE BLOOD CELL (test code = WBC) [...] pg 27.0-34.2 N MEAN CELL HGB CONCETRATION ( test code = MCHC) 29.9 G/DL 31.5-34.0 L RED CELL DISTRIBUTION WIDTH (test code = RDW) SD 11.5-14.5 H PLATELET COUNT (test code = PLT) 356 K/mm3 150-450 N MEAN PLATELET VOLUME (test c ode = MPV) fL 7.0-10.5 H NEUTROPHIL % (test code = NT%) % 40-76 N IMMATURE GRANULOCYTE % (test code = IG%) % 0.0-5.0 N LYMPHOCYTE % (test code = LY%) % 20.5-51.1 L MONOCYTE % (test code = MO%) % 1.7-9.3 H EOSINOPHIL % (test code = EO%) % 0.0-6.0 N BASOPHIL % (test code = BA%) % 0.0-2.0 N NUCLEATED RBC % (test code = NRBC%) /100WBC% 0.0-1.0 N NEUTROPHIL # (test code = NT#) K/mm3 1.8-7.6 H IMMATURE GRANULOCYTE # (test code = IG#) x10 3/uL 0.00-0.03 H LYMPHOCYTE # (test code = LY#) K/mm3 0.6-3.2 N MONOCYTE # (test code = MO#) K/mm3 0.3-1.1 H EOSINOPHIL # (test code = EO#) K/mm3 0.0-0.4 N BASOPHIL # (test code = BA#) K/mm3 0.0-0.1 N NUCLEATED RBC # (test code = NRBC#) K/mm3 0.0-0.1 N MANUAL DIFF REQUIRED (test c ode = MDIFF) DIFF/SCN CRITERIA GLUCOSE BEDSIDE [id number] 19:43:00* Test Item Value Reference Range Interpretation Comme nts GLUCOSE BEDSIDE TESTING (zara t code = GLUBED) 405 mg/dL 70-110 H GLUCOSE BEDSIDE [id number] 16:28:00* Test Item Value Reference Range Interpretation Comme nts GLUCOSE BEDSIDE TESTING (zara t code = GLUBED) 299 mg/dL 70-110 H GLUCOSE BEDSIDE [id number] 12:20:00* Test Item Value Reference Range Interpretation Comme nts GLUCOSE BEDSIDE TESTING (zara t code = GLUBED) 273 mg/dL 70-110 H GLUCOSE BEDSIDE [id number] 08:12:00* Test Item Value Reference Range Interpretation Comme nts GLUCOSE BEDSIDE TESTING (zara t code = GLUBED) 118 mg/dL 70-110 H BASIC METABOLIC [id number] 06:50:00* Test Item Value Reference Range Interpretation Comme nts SODIUM (test code = NA) 137 mmol/L 134-147 N POTASSIUM (test code = K) 4.2 mmol/L 3.4-5.0 N CHLORIDE (test code = CL) 100 mmol/L 100-108 N CARBON DIOXIDE (test code = CO2) 34 mmol/L 21-32 H ANION GAP (test code = GAP) 3.0 GAP calc 4.0-15.0 L GLUCOSE (test code = GLU) 95 MG/DL 70-110 N BLOOD UREA NITROGEN (test co de = BUN) 42 MG/DL 7-18 H GLOMERULAR FILTRATION RATE ( test code = GFR) 58 estGFR >60 L CREATININE (test code = CREAT) 1.0 MG/DL 0.6-1.0 N CALCIUM (test code = CA) 9.3 MG/DL 8.5-10.1 N [id number] 06:50:00* Test Item Value Reference Range Interpretation Comme nts PHOSPHOROUS (test code = PHOS) 2.6 MG/DL 2.5-4.9 N LACTIC DEHYDROGENASE(LDH)2020-06-22 06:50:00* Test Item Value Reference Range Interpretation Comme nts LACTIC DEHYDROGENASE(LDH) (t est code = LDH) 326 Unit/L 84-246 H [id number] 06:50:00* Test Item Value Reference Range Interpretation Comme nts MAGNESIUM (test code = MAG) 1.7 MG/DL 1.8-2.4 L [id number] 06:47:00* Test Item Value Reference Range Interpretation Comme nts D-DIMER (test code = DDIMER) 3044 ng/mLFEU 215-500 HH CBC W/AUTO [id number] 06:39:00* Test Item Value Reference Range Interpretation Comme nts WHITE BLOOD CELL (test code = WBC) 16.1 K/mm3 3.5-11.0 H RED BLOOD CELL (test code = RBC) 3.20 M/mm3 4.70-6.10 L HEMOGLOBIN (test code = HGB) 8.9 G/DL 10.4-14.9 L HEMATOCRIT (test code = HCT) 28.5 % 31.5-44.1 L MEAN CELL VOLUME (test code = MCV) 89.1 Fl 84.5-98.6 N MEAN CELL HGB (test code = MCH) 27.8 pg 27.0-34.2 N MEAN CELL HGB CONCETRATION (test code = MCHC) 31.2 G/DL 31.5-34.0 L RED CELL DISTRIBUTION WIDTH (test code = RDW) 16.8 SD 11.5-14.5 H PLATELET COUNT (test code = PLT) 350 K/mm3 150-450 N MEAN PLATELET VOLUME (test c ode = MPV) 12.20 fL 7.0-10.5 H NEUTROPHIL % (test code = NT%) 79.0 % 40-76 H IMMATURE GRANULOCYTE % (test code = IG%) 0.7 % 0.0-5.0 N LYMPHOCYTE % (test code = LY%) 8.2 % 20.5-51.1 L MONOCYTE % (test code = MO%) 11.8 % 1.7-9.3 H EOSINOPHIL % (test code = EO%) 0.2 % 0.0-6.0 N BASOPHIL % (test code = BA%) 0.1 % 0.0-2.0 N NUCLEATED RBC % (test code = NRBC%) 0.0 /100WBC% 0.0-1.0 N NEUTROPHIL # (test code = NT#) 12.7 K/mm3 1.8-7.6 H IMMATURE GRANULOCYTE # (test code = IG#) 0.11 x10 3/uL 0.00-0.03 H LYMPHOCYTE # (test code = LY#) 1.3 K/mm3 0.6-3.2 N MONOCYTE # (test code = MO#) 1.9 K/mm3 0.3-1.1 H EOSINOPHIL # (test code = EO#) 0.0 K/mm3 0.0-0.4 N BASOPHIL # (test code = BA#) 0.0 K/mm3 0.0-0.1 N NUCLEATED RBC # (test code = NRBC#) 0.0 K/mm3 0.0-0.1 N MANUAL DIFF REQUIRED (test c ode = MDIFF) NO DIFF/SCN CRITERIA GLUCOSE BEDSIDE [id number] 21:52:00* Test Item Value Reference Range Interpretation Comme nts GLUCOSE BEDSIDE TESTING (zara t code = GLUBED) 195 mg/dL 70-110 H GLUCOSE BEDSIDE [id number] 16:38:00* Test Item Value Reference Range Interpretation Comme nts GLUCOSE BEDSIDE TESTING (zara t code = GLUBED) 374 mg/dL 70-110 H GLUCOSE BEDSIDE [id number] 12:17:00* Test Item Value Reference Range Interpretation Comme nts GLUCOSE BEDSIDE TESTING (zara t code = GLUBED) 420 mg/dL 70-110 H GLUCOSE BEDSIDE [id number] 08:22:00* Test Item Value Reference Range Interpretation Comme nts GLUCOSE BEDSIDE TESTING (zara t code = GLUBED) 238 mg/dL 70-110 H CBC W/AUTO [id number] 05:54:00* Test Item Value Reference Range Interpretation Comme nts WHITE BLOOD CELL (test code = WBC) [...] 27.0-34.2 N MEAN CELL HGB CONCETRATION (test code = MCHC) 31.2 G/DL 31.5-34.0 L RED CELL DISTRIBUTION WIDTH (test code = RDW) 15.9 SD 11.5-14.5 H PLATELET COUNT (test code = PLT) 352 K/mm3 150-450 N MEAN PLATELET VOLUME (test c ode = MPV) 11.10 fL 7.0-10.5 H NEUTROPHIL % (test code = NT%) 79.1 % 40-76 H IMMATURE GRANULOCYTE % (test code = IG%) 1.1 % 0.0-5.0 N LYMPHOCYTE % (test code = LY%) 9.5 % 20.5-51.1 L MONOCYTE % (test code = MO%) 10.1 % 1.7-9.3 H EOSINOPHIL % (test code = EO%) 0.1 % 0.0-6.0 N BASOPHIL % (test code = BA%) 0.1 % 0.0-2.0 N NUCLEATED RBC % (test code = NRBC%) 0.0 /100WBC% 0.0-1.0 N NEUTROPHIL # (test code = NT#) 12.2 K/mm3 1.8-7.6 H IMMATURE GRANULOCYTE # (test code = IG#) 0.17 x10 3/uL 0.00-0.03 H LYMPHOCYTE # (test code = LY#) 1.5 K/mm3 0.6-3.2 N MONOCYTE # (test code = MO#) 1.6 K/mm3 0.3-1.1 H EOSINOPHIL # (test code = EO#) 0.0 K/mm3 0.0-0.4 N BASOPHIL # (test code = BA#) 0.0 K/mm3 0.0-0.1 N NUCLEATED RBC # (test code = NRBC#) 0.0 K/mm3 0.0-0.1 N MANUAL DIFF REQUIRED (test c ode = MDIFF) NO DIFF/SCN CRITERIA [id number] 05:21:00* Test Item Value Reference Range Interpretation Comme nts D-DIMER (test code = DDIMER) 4184 ng/mLFEU 215-500 HH BASIC METABOLIC [id number] 05:21:00* Test Item Value Reference Range Interpretation Comme nts SODIUM (test code = NA) 135 mmol/L 134-147 N POTASSIUM (test code = K) 4.0 mmol/L 3.4-5.0 N CHLORIDE (test code = CL) 97 mmol/L 100-108 L CARBON DIOXIDE (test code = CO2) 36 mmol/L 21-32 H ANION GAP (test code = GAP) 2.0 GAP calc 4.0-15.0 L GLUCOSE (test code = GLU) 243 MG/DL 70-110 H BLOOD UREA NITROGEN (test co de = BUN) 42 MG/DL 7-18 H GLOMERULAR FILTRATION RATE ( test code = GFR) 58 estGFR >60 L CREATININE (test code = CREAT) 1.0 MG/DL 0.6-1.0 N CALCIUM (test code = CA) 8.5 MG/DL 8.5-10.1 N [id number] 05:21:00* Test Item Value Reference Range Interpretation Comme nts PHOSPHOROUS (test code = PHOS) 2.9 MG/DL 2.5-4.9 N LACTIC DEHYDROGENASE(LDH)2020-06-21 05:21:00* Test Item Value Reference Range Interpretation Comme nts LACTIC DEHYDROGENASE(LDH) (t est code = LDH) 271 Unit/L 84-246 H [id number] 05:21:00* Test Item Value Reference Range Interpretation Comme nts MAGNESIUM (test code = MAG) 1.4 MG/DL 1.8-2.4 L CBC W/AUTO [id number] 05:04:00* Test Item Value Reference Range Interpretation Comme nts WHITE BLOOD CELL (test code = WBC) [...] pg 27.0-34.2 N MEAN CELL HGB CONCETRATION ( test code = MCHC) 31.2 G/DL 31.5-34.0 L RED CELL DISTRIBUTION WIDTH (test code = RDW) SD 11.5-14.5 H PLATELET COUNT (test code = PLT) 352 K/mm3 150-450 N MEAN PLATELET VOLUME (test c ode = MPV) fL 7.0-10.5 H NEUTROPHIL % (test code = NT%) % 40-76 H IMMATURE GRANULOCYTE % (test code = IG%) % 0.0-5.0 N LYMPHOCYTE % (test code = LY%) % 20.5-51.1 L MONOCYTE % (test code = MO%) % 1.7-9.3 H EOSINOPHIL % (test code = EO%) % 0.0-6.0 N BASOPHIL % (test code = BA%) % 0.0-2.0 N NUCLEATED RBC % (test code = NRBC%) /100WBC% 0.0-1.0 N NEUTROPHIL # (test code = NT#) K/mm3 1.8-7.6 H IMMATURE GRANULOCYTE # (test code = IG#) x10 3/uL 0.00-0.03 H LYMPHOCYTE # (test code = LY#) K/mm3 0.6-3.2 N MONOCYTE # (test code = MO#) K/mm3 0.3-1.1 H EOSINOPHIL # (test code = EO#) K/mm3 0.0-0.4 N BASOPHIL # (test code = BA#) K/mm3 0.0-0.1 N NUCLEATED RBC # (test code = NRBC#) K/mm3 0.0-0.1 N MANUAL DIFF REQUIRED (test c ode = MDIFF) DIFF/SCN CRITERIA THROMBOPLASTIN TIME [id number] 02:51:00* Test Item Value Reference Range Interpretation Comme nts THROMBOPLASTIN TIME PARTIAL (test code = PTT) 160.7 SECONDS 26-35 HH GLUCOSE BEDSIDE [id number] 21:12:00* Test Item Value Reference Range Interpretation Comme nts GLUCOSE BEDSIDE TESTING (zara t code = GLUBED) 297 mg/dL 70-110 H THROMBOPLASTIN TIME [id number] 20:35:00* Test Item Value Reference Range Interpretation Comme nts THROMBOPLASTIN TIME PARTIAL (test code = PTT) 35.2 SECONDS 26-35 H GLUCOSE BEDSIDE [id number] 16:25:00* Test Item Value Reference Range Interpretation Comme nts GLUCOSE BEDSIDE TESTING (zara t code = GLUBED) 293 mg/dL 70-110 H LIPID PROFILE (CORONARY RISK)2020-06-20 15:42:00* Test Item Value Reference Range Interpretation Comme nts TRIGLYCERIDES (test code = TRIG) 57 MG/DL 0-150 N CHOLESTEROL (test code = CHOL) 80 MG/DL 133-200 L CHOLESTEROL/HDL RATIO (test code = CHOLHDL) 1.90 RATIO >0 HDL CHOLESTEROL (test code = HDL) 42 MG/DL 40-59 N NON-HDL CHOLESTEROL (test co de = NHDL) 38 mg/dL <130 LIPOPROTEIN LDL (test code = LDL) 34 MG/DL 0-129 N LDL/HDL (test code = LDL/HDL) 0.80 Ratio 1.48-3.22 Avg L [id number] 15:14:00* Test Item Value Reference Range Interpretation Comme nts TROPONIN-I (test code = TROPI) 0.791 NG/ML 0.000-0.045 HH Negative: </= 0. 045 Positive: >/= 0.046 Correlation with serial results, other cardiac markers, and clinical findings is necessary to determine the clinical significance of this result. Quantitative results using different methodologies should not be compared to one another as numerical results may varyby method. Completed by Nursing: NO- CTA [id number] 14:47:00 [facility] 1950 Sex: F Name: LINDA MENEZES [facility] : 1950 Age/S: 70 / F [address] Unit #: [id number] Loc: [place] [id number] Phys: Nito Shipley MD Acct: [id number] Dis Date: Status: REG ERPHONE #: [phone] Exam Date: 06/20/2020 4019 FAX #: Reason: Chest Pain r/o PE EXAMS: CPT: [id number] CTA CHEST 41071 CTA chest, contrast-enhanced (pulmonary embolism protocol }.Reconstructed [...] Correlation for any peripheral source of new embolimay be needed by DVT study. Heart size appears to be enlarged with pericardial fluid or possibly thickening. Maximum measurement at 1.3 cm. Trace pleural effusions seen, bilaterally. No evidence of hilar or mediastinal adenopathy can be seen. Chest wall structures are symmetric. Lung window settings show multiple areas of groundglass in the lungs suspicious for pneumonia possibly Covid pneumonia.Do not show any bulla formation, mass, infiltrates or pneumothorax. Reformatted MIP images do not s how emboli. Aortic appearance is intact. IMPRESSION: No large vessel acute emboli suggested. Normalaortic diameter seen. 2 small filling central defects mainly right lower lobe that are surrounded by normal perfusion likely represent old/residual PE findings. PAGE 1 Signed Report (CONTINUED) Name: LINDA MENEZES : 1950 Age/S: 70 / F [address] Unit #: [id number] Loc: [place] [address] Phys: Nito Shipley MD Acct: [id number] Dis Date: Status: REG ER PHONE #: [phone] Exam Date: 06/20/2020 1426 FAX #: Reason: Chest Pain r/o PE EXAMS: CPT: [id number] CTA CHEST 61339 (Continued) Cardiomegaly with small to moderate pericardial effusion. Bilateral pneumonia. Location: U19 at 1447 Reported and signed by: Ricky Alegre M.D CC: Nito Shipley MD Technologist:Janett Graf, RT(R)(CT)(MRI) CTDI: DLP: Trnscb Date/Time: 06/20/2020 (1448) [email or web address] Orig Print D/T: S: 06/20/2020 (4736) PAGE 2 Signed ReportCoronavirus 2019 nCoV [id number] 13:48:00* Test Item Value Reference Range Interpretation Comme nts Coronavirus 2018 nCoV Bedsid e (test code = [id number]) Positive Negative BASIC METABOLIC [id number] 13:24:00* Test Item Value Reference Range Interpretation Comme nts SODIUM (test code = NA) 136 mmol/L 134-147 N POTASSIUM (test code = K) 4.5 mmol/L 3.4-5.0 N CHLORIDE (test code = CL) 98 mmol/L 100-108 L CARBON DIOXIDE (test code = CO2) 33 mmol/L 21-32 H ANION GAP (test code = GAP) 5.0 GAP calc 4.0-15.0 N GLUCOSE (test code = GLU) 250 MG/DL 70-110 H BLOOD UREA NITROGEN (test co de = BUN) 50 MG/DL 7-18 H GLOMERULAR FILTRATION RATE ( test code = GFR) 52 estGFR >60 L CREATININE (test code = CREAT) 1.1 MG/DL 0.6-1.0 H CALCIUM (test code = CA) 9.0 MG/DL 8.5-10.1 N Completed by Nursing: NOCREATINE KINASE (CK)2020-06-20 13:24:00* Test Item Value Reference Range Interpretation Comme nts CREATINE KINASE (CK) (test c ode = CK) 37 Unit/L 26-192 N Completed by Nursing: [id number] 13:24:00* Test Item Value Reference Range Interpretation Comme nts TROPONIN-I (test code = TROPI) 0.932 NG/ML 0.000-0.045 Negative: </= 0. 045 Positive: >/= 0.046 Correlation with serial results, other cardiac markers, and clinical findings is necessary to determine the clinical significance of this result. Quantitative results using different methodologies should not be compared to one another as numerical results may varyby method. Completed by Nursing: NOPROTHROMBIN [id number] 13:03:00* Test Item Value Reference Range Interpretation Comme [facility] PT PATIENT (test code = PTP) 15.8 SECONDS 9.3-12.9 H INTERNATIONAL NORMAL RATIO (test code = INR) 1.39 INR Unit 0.8-1.2 H THROMBOPLASTIN TIME [id number] 13:03:00* Test Item Value Reference Range Interpretation Comme [facility] THROMBOPLASTIN TIME PARTIAL (test code = PTT) 18.0 SECONDS 26-35 L - XR CHEST 1 [id number] 13:02:00 [facility] 1950 Sex: F Name: LINDA MENEZES [facility] : 1950 Age/S: 70 / F [address] Unit #: [id number] Loc: [place] [address] Phys: Nito Shipley MD Acct: [id number] Dis Date: Status: REG KHUSHI #: [phone] Exam Date: 06/20/2020 1240 FAX #: Reason: chest pain EXAMS: CPT: [id number] XR CHEST 1 V 27124 Fluoro Time: DAP (Gy m2): Air Kerma (mGy): HISTORY: Chest pain. Location: C3 COMPAR AOML:None FINDINGS: Heart is mildly prominent. Aortic calcifications are present. There is patchy mixed interstitial and airspace opacities bilaterally compatible with pneumonia. No pneumothorax. IMPRESSION: 1. Patchy bilateral opacities compatible with pneumonia. at 1302 Reported and signed by: Ricky Munoz M.D. CC: Nito Shipley MD PAGE 1 Signed Report Name: LINDA MENEZES [place] : 1950 Age/S: 70/ F [address] Unit #: [id number] Loc: [place] [address] Phys: Nito Shipley MD Acct: [id number] Dis Date: Status: REG ER PHONE #: [phone] Exam Date: 06/20/2020 124 FAX #: Reason: chest pain EXAMS: CPT: [id number] XR CHEST 1 V 98955 Fluoro Time: DAP (Gy m2): Air Kerma (mGy):(Continued) Technologist: Anna Maldonado, RT(R) Trnscb Date/Time: 06/20/2020 (3742) [email or web address] Orig Print D/T: S: 06/20/2020 (7724) PAGE 2 Signed ReportCBC W/O [id number] 12:58:00* Test Item Value Reference Range Interpretation Comme nts WHITE BLOOD CELL (test code = WBC) [...] pg 27.0-34.2 N MEAN CELL HGB CONCETRATION ( test code = MCHC) 31.4 G/DL 31.5-34.0 L RED CELL DISTRIBUTION WIDTH (test code = RDW) 15.8 SD 11.5-14.5 H PLATELET COUNT (test code = PLT) 327 K/mm3 150-450 N MEAN PLATELET VOLUME (test c ode = MPV) 11.70 fL 7.0-10.5 H History and Physical Notes Date/Time Note Provider Source 2024-05-01 20:23:26 [facility] Hospitalist Admission H&P Date of Service: 05/01/2024 CHIEF COMPLAINT: Chest pain rule out acute coronary syndrome HISTORY OF PRESENT ILLNESS Linda Menezes is a 73 year old female who presents with Chest discomfort. Patient states she was also having pain going down both arms. She has had the pain that has been going on for the last couple of days. She was at [facility] and she was sent into the emergency room for further evaluation. In the ER patient has had cardiac workup including troponins which were unremarkable. Patient will be admitted to the hospital to be ruled out and will get cardiology consultation.Patient had an echocardiogram a year ago which showed an ejection fraction of 30 to 35%. Will continue with monitoring volume status closely and will repeat an echocardiogram in the morning. Patient will be admitted for observation. PAST MEDICAL HISTORY Past Medical History: Diagnosis Date A-fib CHF (congestive heart failure) CKD (chronic kidney disease) Dyslipidemia Essential (primary) hypertension GERD (gastroesophageal reflux disease) Major depressive disorder, single episode, unspecified Myocardial infarction ERIC (obstructive sleep apnea) Type 2 diabetes mellitus PAST SURGICAL HISTORY Past Surgical History: Procedure Laterality Date APPENDECTOMY HYSTERECTOMY OTHER cataract surgey REMOVAL GALLBLADDER THYROIDECTOMY ALLERGIES No Known Allergies MEDICATIONS Current home medication list reviewed: Current Discharge Medication List STOP taking these medications allopurinoL 100 mg tablet Comments: Reason for Stopping: divalproex (DEPAKOTE) 250 mg delayed release tablet Comments: Reason for Stopping: divalproex ER (DEPAKOTE ER) 500 mg 24 hr tablet Comments: Reason for Stopping: docusate 100 mg capsule Comments: Reason for Stopping: HYDROcodone-acetaminophen 7.5-325 mg per tablet Comments: Reason for Stopping: ipratropium-albuteroL 0.5 mg-3 mg(2.5 mg base)/3 mL nebulizer solution Comments: Reason for Stopping: lactulose 10 gram/15 mL oral solution Comments: Reason for Stopping: Loperamide HCl 2 mg Tab tablet Comments: Reason for Stopping: loratadine 10 mg Chew Comments: Reason for Stopping: ondansetron 4 mg tablet Comments: Reason for Stopping: aspirin 81 mg chewable tablet Comments: Reason for Stopping: lisinopriL 2.5 mg tablet Comments: Reason for Stopping: amLODIPine 5 mg tablet Comments: Reason for Stopping: apixaban 5 mg tablet Comments: Reason for Stopping: carvediloL 6.25 mg tablet Comments: Reason for Stopping: empagliflozin (JARDIANCE) 10 mg Comments: Reason for Stopping: furosemide 20 mg tablet Comments: Reason for Stopping: levothyroxine 137 mcg tablet Comments: Reason for Stopping: lovastatin 20 mg tablet Comments: Reason for Stopping: Melatonin 5 mg tablet Comments: Reason for Stopping: metFORMIN 1,000 mg tablet Comments: Reason for Stopping: NOVOLOG U-100 INSULIN ASPART SC Comments: Reason for Stopping: omeprazole 40 mg capsule Comments: Reason for Stopping: fluticasone propionate 50 mcg/actuation nasal spray Comments: Reason for Stopping: acetaminophen-codeine 300-30 mg tablet Comments: Reason for Stopping: diphenoxylate-atropine (LOMOTIL) 2.5-0.025 mg tablet Comments: Reason for Stopping: DULoxetine 30 mg capsule Comments: Reason for Stopping: gabapentin 100 mg capsule Comments: Reason for Stopping: insulin glargine 100 unit/mL injection Comments: Reason for Stopping: KCL 10 mEq tablet Comments: Reason for Stopping: FAMILY HISTORY Family History Problem Relation Age of Onset Stroke Mother Hypertension Mother SOCIAL HISTORY Social History Socioeconomic History Marital status: Tobacco Use Smoking status: Never Smokeless tobacco: Never Substance and Sexual Activity Alcohol use: Not Currently Drug use: Never Social Determinants of Health Financial Resource Strain: Low Risk (06/16/2023) Overall Financial Resource Strain (CARDIA) Difficulty of Paying Living Expenses: Not hard at all Food Insecurity: No Food Insecurity (06/16/2023) Hunger Vital Sign Worried About Running Out of Food in the Last Year: Never true Ran Out of Food in the Last Year: Never true Transportation Needs: No Transportation Needs (06/16/2023) PRAPARE - Transportation Lack of Transportation (Medical): No Lack of Transportation (Non-Medical): No Physical Activity: Inactive (06/16/2023) Exercise Vital Sign Days of Exercise per Week: 0 days Minutes of Exercise per Session: 0 min Social Connections: Unknown (06/16/2023) Social Connection and Isolation Panel [NHANES] Frequency of Communication with Friends and Family: More than three times a week Marital Status: Housing Stability: Low Risk (06/16/2023) Housing Stability Vital Sign Unable to Pay for Housing in the Last Year: No Number of Places Lived in the Last Year: 1 Unstable Housing in the Last Year: No REVIEW OF SYSTEMS 10 systems negative except per HPI PHYSICAL EXAMINATION BP (!) 148/67 | Pulse 66 | Temp 36.1 ?C (97 ?F) (Temporal Artery) | Resp 18 | Ht 1.6 m (5' 3") | Wt 68 kg (150 lb) | SpO2 96% | BMI 26.57 kg/m? General: No acute distress HEENT: Normal oral mucosa, anicteric sclerae, NCAT Cardiovascular: RRR Lungs: Symmetric expansion, clear bilaterally Abdomen: Soft, NTND Musculoskeletal: No synovitis, normal muscle mass Genitourinary: Deferred Skin: No rash, no skin lesions Extremities: No clubbing, no cyanosis, no lower extremity edema Neuro: AAOx3, no focal deficits Psych: Normal affect LABS - reviewed pertinent labs as below: CBC BMP PT/INR WBC (10*3/?L) Date Value 05/01/2024 7.01 NA (mmol/L) Date Value 05/01/2024 137 No results found for: "PT" RBC (10*6/?L) Date Value 05/01/2024 3.67 (L) K (mmol/L) Date Value 05/01/2024 4.5 INR (no units) Date Value 07/29/2022 1.0 PLT (10*3/?L) Date Value 05/01/2024 298 CALCIUM (mg/dL) Date Value 05/01/2024 9.6 HGB (g/dL) Date Value 05/01/2024 10.3 (L) CL (mmol/L) Date Value 05/01/2024 103 aPTT HCT (%) Date Value 05/01/2024 33.6 (L) BUN (mg/dL) Date Value 05/01/2024 31 (H) No results found for: "APTTPAT" CREATININE (mg/dL) Date Value 05/01/2024 1.29 (H) IMAGING - reviewed, pertinent results as below: Hospital Encounter on 05/01/24 XR Chest 1 VW Narrative EXAM: XR CHEST 1 VW COMPARISON: None HISTORY: STEMI Impression FINDINGS/IMPRESSION: The lung volumes are normal. Mildly increased interstitial prominence in keeping with pulmonary edema. No focal consolidations. No pleural abnormalities are detected. The cardiac silhouette appears borderline accounting for technique. Changes of kyphoplasty are noted in one of the lower thoracic vertebrae. Otherwise, no focal osseous lesions or acute osseous findings are detected. Preliminary Report Dictated by Resident: Alhaji Velasquez ASSESSMENT: 1. Chest pain rule out acute coronary syndrome 2. Cardiomyopathy with an EF of 30 to 35% 3. History of chronic kidney disease stage III 4. History of hypertension 5. History of gastroesophageal reflux disease 6. History of depression 7. History of obstructive sleep apnea 8. Type 2 diabetes PLAN: 1. Chest pain rule out acute emergency room; serial troponins and EKG. Will also repeat echocardiogram as patient had an echo a year ago which showed an EF of 30 to 35%. Will monitor hemodynamics closely and strict blood pressure control. Patient will be admitted for observation 2. History of chronic kidney disease stage III; continue monitoring renal function 3. History of hypertension and type 2 diabetes; strict blood pressure and blood sugar control 4. History of depression; continue with antidepressants DVT prophylaxis: enoxaparin Stress ulcer prophylaxis: pantoprazole Code status: FULL Advanced Care Planning (Z71.89) Above assessment and plan discussed at length with patient, patient expressed full understanding. Questions and concerned addressed. Surrogate decision maker: NO Level of care expected after discharge: HOME Time spent: 3 minutes discussing the advanced care plan Smoking Cessation: (Z71.6) Tobacco user?: NO Patient will require observation [place] G[employer]MENT SORTER was verified during stay Angela Okeefe MD IM-INTERNAL MEDICINE STAFF [facility] - Health Procedure Notes Date/Time Note Provider Source 2024-10-19 13:07:01 Associated Order(s): Intubation Intubation Date/Time: 10/19/2024 12:49 PM Urgency: elective Airway not difficult General Information and Staff Patient location during procedure: OR Performed: resident/PROSTHETIC AIDE Performed by: Marbin Mattson DO Authorized by: Ricky Scherer MD Indications and Patient Condition Indications for airway management: anesthesia Spontaneous ventilation: present Sedation level: deep Preoxygenated: yes Patient position: sniffing MILS maintained throughout Mask difficulty assessment: 0 - not attempted Final Airway Details Final airway type: endotracheal airway Successful airway: ETT Cuffed: yes Successful intubation technique: direct laryngoscopy Facilitating devices/methods: intubating stylet Endotracheal tube insertion site: oral Blade: Vicki Blade size: #4 ETT size (mm): 7.0 Cormack-Lehane Classification: grade I - full view of glottis Placement verified by: chest auscultation and capnometry Measured from: teeth ETT to teeth (cm): 21 Number of attempts at approach: 1 Ventilation between attempts: none Number of other approaches attempted: 0 Additional Comments Smooth, atraumatic, dentition and lips unchanged from pre-op. ANESTHESIOLOGY [facility] 2024-10-19 11:57:33 Associated Order(s): Nerve Block Nerve Block Procedure: Other Peripheral Nerve (fascia iliaca) Patient Location: ICU Laterality: Left Surgical Anesthesia: Post Op Pain: Post Op Pain Management requested by surgeon per surgical: Progress Note Resident/PROSTHETIC AIDE: Anthony Okeefe DOPerformed by: resident/PROSTHETIC AIDE Preanesthetic timeout completed prior to procedure: patient identified,IV checked, site marked, risks and benefits discussed, surgical consent, monitors and equipment checked, pre-op evaluation, timeout performed Informed consent obtained patient wishes to proceed: yes Patient Position: supine Sterile Prep/Drape: Yes Monitoring: continuous pulse ox, blood pressure and ECG Injection Technique: single-shot Nerve Block Needle Type: Pajunk. Needle Gauge: 22 G Needle Length: 4.0 Number of Attempts: 1 Technique: Ultrasound guided, Negative aspiration and Intermittent aspiration during injection Events: Patient tolerated procedure well, Negative Aspiration and Local anesthetic solution visualized around nerve Medications Given: Regional: EPI 1:200K ANESTHESIOLOGY [facility] Notes Date/Time Note Provider Source 2024-10-19 15:00:00 Patient: Linda Menezes Procedure Summary Date: 10/19/24 Room / Location: [place] [address] / [facility] Anesthesia Start: 1233 Anesthesia Stop: 1459 Procedure: FEMUR INTRAMEDULLARY NAILING (Left: Leg) Diagnosis: Closed pertrochanteric fracture of left femur, initial encounter (Closed pertrochanteric fracture of left femur, initial encounter [S72.102A]) Surgeons: Maye Prather MD Responsible Provider: Ricky Scherer MD Anesthesia Type: General ASA Status: 3 Anesthesia Type: General Last vitals BP 134/63 Temp 36C Pulse 73 Resp 16 SpO2 100% There were no known notable events for this encounter. Anesthesia Post Evaluation Patient location during evaluation: bedside Patient participation: complete - patient participated Level of consciousness: awake and alert Pain management: satisfactory to patient Airway patency: patent Cardiovascular status: acceptable and blood pressure returned to baseline Respiratory status: acceptable Hydration status: acceptable AN-ANESTHESIOLOGY ANESTHESIOLOGIST [facility] 2024-10-19 07:04:43 Name/ MRN / Age / Gender: Linda Menezes, [id number] 74 year old female BMI: Estimated body mass index is 28.11 kg/m? as calculated from the following: Height as of this encounter: 1.6 m (5' 3"). Weight as of this encounter: 72 kg (158 lb 11.2 oz). Allergies: Spironolactone Last Vitals: BP Readings from Last 1 Encounters: 10/19/24 (!) 144/90 Pulse Readings from Last 1 Encounters: 10/19/24 67 SpO2 Readings from Last 1 Encounters: 10/19/24 95% Date of Surgery: 10/19/2024 Surgeon: Maye Prather MD Procedure: FEMUR INTRAMEDULLARY NAILING (Left: Leg) [facility] Anesthesia Preop Eval (physical exam) Anesthesia Preop: Chart Review and [id number] APA Communication: Linda Menezes is a 74 year old female w/ a PMH of AFIB, CHF, CKD, HLD, HTN, GERD, MDD, h/o GA, ERIC, DMII who presents after ground level fall w/ a left femoral neck fracture posted for OR for femur IM nailing. Patient is oriented to self, location, situation (semi, thinks she broke her foot). Consent obtained from MPOA, daughter in law. ECHO performed this morning, results pending Krystina Miller MD 10/19/2024 7:05 AM NPO Status Verified Clear Liquids: > 2 Hours Solid Food/Non-Clear Liquids: > 8 Hours PONV Risk Factors: female Anesthesia History Anesthesia History Negative Comments: ALHAJI under sedation 09/2024 Previous Anesthetics/Airways Cardiovascular METS Comments: Lives in a skilled nursing, cares for herself with assistance from staff. Walks with a walker, but also occasionally utilizes a wheelchair. Daughter in law reports that patient sometimes complains of chest pain, in conjunction with back pains and shoulder pains. Patient denies any chest pains. (+) Hypertension (+) Dyslipidemia (+) Patient reports prior GA (+) Dysrhythmias and atrial fibrillation (+) CHF (HFrEF, recovering, LVEF on recent TTE 40-45%) Pulmonary (+) Sleep apnea (no CPAP use) Neuro/Musculoskeletal Comments: Possibly dementia vs ICU confusion (+) Psychiatric history and depression (-) Obesity GI/Hepatic Negative GI/Hepatic ROS GI/Hepatic ROS Negative per Chart Review Hematology Comments: 05/02/24 10/18/24 10/19/24 0332 1702 0345 HGB 10.5* 12.6 11.4* HCT 33.4* 39.9 34.2* PLT 293 239 193 WBC 5.58 6.86 8.17 Renal (+) Renal disease (SCR 1.10) and CKD Skin (+) Current IV access Endo/Other (+) Diabetes Mellitus and Type 2 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 Hold on DOS. Phentermine: Alert [facility] anesthesiologist SGLT2 Inhibitors: "gliflozins" to be held for 3 days prior to elective surgeries GLP1 Agonosit: stop 7 days prior to surgery MAC Cases: Continue taking KURTIS inhibitors and ARBs ASA Classification ASA: 3 Labs: Chemistry 10/19/2024 CBC 10/19/2024 136 102 33 (H) 156 (H) 8.17 11.4 (L) 193 4.0 29 1.10 (H) 34.2 (L) eGFR: 52.5 Date: 10/19/2024 ANC: 4.02 Date: 10/19/2024 LFTs 10/18/2024 Coags AST: 16 AP: 54 Prot: 6.1 (L) Ca: 9.7 PT: 11.1 Date: 10/18/2024 ALT: 13 T Roldan: 0.4 Alb: 3.7 PTT: 32 Date: 10/18/2024 PO4: 2.6 Date: 10/19/2024 INR: 0.9 Date: 10/18/2024 Cardiac Endocrine & other pBNP: 1,810 (H) Date: 05/01/2024 A1C: 7.0 (H) Date: 10/18/2024 Trop I: 0.009 Date: 05/01/2024 POCT A1C: - Date: - CK: - Date: - TSH: - Date: - CKMB: - Date: - FT4: - Date: - LDL: - Date: - Lact: - Date: - Procal: - Date: - Respiratory -|-|-|-|- D-dimer: - ABG Date: - Date: - Miscellaneous Type and Screen: A Positive Antibody: Negative Date: 10/18/2024 POCT : - Date: - Current Medications: No outpatient medications have been marked as taking for the 10/18/24 encounter (Hospital Encounter). Previous Surgeries: Past Surgical History: Procedure Laterality Date APPENDECTOMY BLOCK EPIDURAL (SHX) N/A 08/13/2024 Surgeon: Yamil Diamond MD; Location: [facility] BLOCK EPIDURAL (SHX) N/A 09/10/2024 Surgeon: Yamil Diamond MD; Location: [facility] OR [facility] BLOCK EPIDURAL (SHX) N/A 10/01/2024 Surgeon: Yamil Diamond MD; Location: [facility] OR [facility] HYSTERECTOMY OTHER cataract surgey REMOVAL GALLBLADDER THYROIDECTOMY Anesthesia Physical Exam General no apparent distress not alert and oriented x 3 Neuro/Psych Dental no notable dental hx Abdominal GI exam normal Airway Mallampati score:III Extremity no pitting edema Pulmonary pulmonary exam normal Other Cardiovascular cardiovascular exam normalRhythm:regular Anesthesia Plan ASA Status: 3 Plan discussed during pre-op evaluation: General Anesthetic plan on DOS: General Plan to include: ETT Anesthesia plan discussed with: patient or telephone claims representative Post-Operative Analgesia: routine analgesia & antiemetics Recovery Plan: ICU Additional comments: I reviewed the preoperative history, medications, labs and pertinent studies and performed a focused physical exam preoperatively. I discussed the anesthetic plan with the patient and/or family, including the risks, benefits, and alternatives. I answered all questions and verified consent, ID, and NPO status. The patient/family expressed understanding of topics discussed, agrees with the plan and desires to proceed with the surgery. [facility] 2024-09-24 13:04:01 Images from the original note were not included. Your procedure is at [facility] on 10/01/24. The address is [address] [place] [address], [id number]. [facility] [place] nursing staff will call you the workday prior to surgery/procedure between 12-3 pm with your arrival time. When you arrive, please come inside and sign in at the desk. Please note: You may not travel home alone and that includes in a taxi or by bus. We must speak to your Responsible Adult (who will be picking you up) the morning of your procedure, before the start of your procedure. This person must be an adult over the age of 18 years of age. Do not eat any solid food after midnight the night before surgery. May have 8-16 oz of water/clear liquids each hour after midnight, as desired, until two hours prior to arrival to promote hydration. You may take your medications with a sip of water as directed by physician. Anticoagulants will be per physician guidance. Will hold apixaban three days prior to surgery per MD instruction. Other medication Note(s)/Instructions::Instru cted to hold Jardiance three days prior to surgery, hold lisinopril day before and morning of surgery, hold metformin evening before and morning of surgery, give 1/2 usual insulin dose evening before and hold insulin morning of surgery, and hold furosemide morning of surgery. Advised to give carvedilol, hydrocodone, duloxieine, levothyroxine, omeprazole, and Depakote the morning of surgery. Pending screening, we may test for COVID. If a patient tests positive, their cases are cancelled and/or rescheduled. COVID SCREENING NOTE: Denies COVID symptoms, no testing required. Additional requests, questions, concerns:CB number and availability provided. Patient verbalized understanding of pre-op instructions and voiced no further questions at this time. [facility] 2024-09-04 10:33:54 Images from the original note were not included. Your procedure is at [facility] on 09/10/24. The address is [address] [place] [address], [id number]. [facility] [place] nursing staff will call you the workday prior to surgery/procedure between 12-3 pm with your arrival time. When you arrive, please come inside and sign in at the desk. Please note: You may not travel home alone and that includes in a taxi or by bus. We must speak to your Responsible Adult (who will be picking you up) the morning of your procedure, before the start of your procedure. This person must be an adult over the age of 18 years of age. Do not eat any solid food after midnight the night before surgery. May have 8-16 oz of water/clear liquids each hour after midnight, as desired, until two hours prior to arrival to promote hydration. You may take your medications with a sip of water as directed by physician. Anticoagulants will be per physician guidance. Will hold apixaban three days prior to surgery per MD instruction. Other medication Note(s)/Instructions::Instru cted to hold Jardiance three days prior to surgery, hold lisinopril day before and morning of surgery, hold metformin evening before and morning of surgery, give 1/2 usual insulin dose evening before and hold insulin morning of surgery, and hold furosemide morning of surgery. Advised to give carvedilol, hydrocodone, duloxieine, levothyroxine, omeprazole, and Depakote the morning of surgery. Pending screening, we may test for COVID. If a patient tests positive, their cases are cancelled and/or rescheduled. COVID SCREENING NOTE: Denies COVID symptoms, no testing required. Additional requests, questions, concerns:CB number and availability provided. Patient verbalized understanding of pre-op instructions and voiced no further questions at this time. [facility] 2024-08-31 13:43:53 Lab results and directions to stop spironolactone faxed to [facility] and staff notified. LI Gaspar RN [facility] 2024-08-30 14:26:19 Notified pt daughter of physician recommendations to stop spironolactone due to abnormal labs. Attempted to contact [facility] nurse where pt is staying. LVM for call back [facility] 2024-08-30 10:56:43 Attempt #2 to contact pt with results. LVM Attempted to contact Michel in contact list LVM [facility] 2024-08-29 16:28:23 Images from the original note were not included. Attempted to contact pt with physician recommendations from labs. LVM Geraldo James MD P Cardiology Nurse High K 5.8 and worsening Cr. Stop spironolactone. Plz update SEP. [facility] 2024-08-28 13:45:00 Images from the original note were not included. Venipuncture collection performed by clean technique on the left anticubitus. Total of 1 attempts were made. Slight pressure and a bandage/dressing were applied to the site(s). The patient experienced no complications. The following specimens were processed according to instructions and sent to [facility] laboratories per lab order on 08/28/2024: LT BLUE SST 1 RED LAV PPT DK GREEN (LiHep) DK GREEN (SodH) ROJAS DK BLUE (K2) DK BLUE (S) ACD Blood Culture NIPT/NTD [facility] 2024-08-21 03:35:43 Pt given printed and verbal discharge instructions regarding fall, encouraged hydration, Pt verbalized understanding of instructions, pt awake alert oriented, resp reg unlabored, skin w/d, color appropriate for race, moves all ext well,pt encouraged to follow up with pcp Advised to seek medical attention for new/prolonged/worsening of symptoms No adverse reaction to meds given in ER noted upon discharge Awake, alert oriented, resp reg unlabored, skin w/d, pt leaving in stretcher with [facility], in no apparent distress [facility] Juvenal Whyte RN [facility] 2024-08-21 01:04:56 [id number] Parag Foley was contacted to let her know pt was here in the ED, @ pt request. [facility] 2024-08-21 00:53:56 Pt brought in by [facility] from [facility]. Pt reports she turned over in bed and fell onto floor. Pt c/o neck pain and has a small red area over right eyebrow. Pt take Eiquis for afib. LI Gonzalez RN [facility] 2024-08-14 13:17:56 Left pt a vm to return clinic call and get scheduled. Thank you. LI Patel [facility] 2024-08-14 13:00:[address] ADC EP Dr. Aditya paulino THETIC AIDE [facility] 2024-08-14 12:07:[address] James, I am writing to you regarding your patient, who has a history of afib on eliquis. This patient has a history of multiple falls. The last one was on 07/17/24. I recommend a referral to an rn admission (EP) for further evaluation for stroke reduction and potential treatment. Should you agree, please place the referral and I will be happy to contact the patient to set up the appointment. Kind regards, Nargis Rashid RN, BSN Patient Navigator LI Rashid RN [facility] 2024-08-09 11:36:03 Images from the original note were not included. Your procedure is at [facility] on 08/13/24. The address is [address] [place] [address], [id number]. [facility] [place] nursing staff will call you the workday prior to surgery/procedure between 12-3 pm with your arrival time. When you arrive, please come inside and sign in at the desk. Please note: You may not travel home alone and that includes in a taxi or by bus. We must speak to your Responsible Adult (who will be picking you up) the morning of your procedure, before the start of your procedure. This person must be an adult over the age of 18 years of age. Do not eat any solid food after midnight the night before surgery. May have 8-16 oz of water/clear liquids each hour after midnight, as desired, until two hours prior to arrival to promote hydration. You may take your medications with a sip of water as directed by physician. Anticoagulants will be per physician guidance. Will hold Eliquis three days prior to procedure per MD instruction. Other medication Note(s)/Instructions:Instruc viktoria to hold Jardiance three days prior to surgery, hold lisinopril day before and morning of surgery, hold metoprolol evening before and morning of surgery, give 1/2 usual insulin dose evening before and hold insulin morning of surgery, and hold furosemide morning of surgery. Advised to give carvedilol, hydrocodone, duloxieine, levothyroxine, omeprazole, and Depakote the morning of surgery. Pending screening, we may test for COVID. If a patient tests positive, their cases are cancelled and/or rescheduled. COVID SCREENING NOTE: Denies COVID symptoms, no testing required. Additional requests, questions, concerns:CB numbers and availability provided. Patient verbalized understanding of pre-op instructions and voiced no further questions at this time. [facility] 2024-07-24 10:17:50 completed form. Faxed back. Pending confirmation. [facility] 2024-07-23 16:09:41 Back injections clearance form received. Placed in MDs ADC office inbox folder for review. [facility] 2024-07-18 04:33:59 Pt given printed and verbal discharge instructions regarding fall, encouraged hydration, Pt verbalized understanding of instructions, pt awake alert oriented, resp reg unlabored, skin w/d, color appropriate for race, moves all ext well,pt encouraged to follow up with pcp Advised to seek medical attention for new/prolonged/worsening of symptoms, No adverse reaction to meds given in ER noted upon discharge Awake, alert oriented, resp reg unlabored, skin w/d, pt leaving via [facility] back to [facility], in no apparent distress, [facility] 2024-07-18 01:50:14 Purewik placed [facility] Gretel Gonzalez RN [facility] 2024-07-17 22:26:02 Pt presents to ED via [facility] from [facility] for c/o fall out of bed and hit head. No LOC. Pt is on blood thinners. A&Ox4 per EMS. [facility] Mika Carey RN [facility] 2024-07-17 11:00:00 Addended by: GERALDO JAMES MD on: 08/14/2024 01:00 PM Modules accepted: Orders [facility] 2024-07-09 22:41:14 Pt report given to [facility] 2024-07-09 22:03:02 [facility] 2024-07-09 21:58:42 Awake, alert oriented X4, respiratory even and unlabored,skin w/d color appropriate for race, moves all ext well, pt encouraged to follow up with pcp and or return as needed Pt given printed and verbal discharge instructions regarding Fall , patient verbralized understanding and signature obtained, patient denies any other concerns. Advised to seek medical attention for new/prolonged/worsening of symptoms, No adverse reaction to meds given in ER noted upon discharge Pt awaiting transport back to [facility] 2024-07-09 21:04:02 Pt A&OX4,RESP EVEN AND UNLABORED,SKIN W&D AND NORMAL COLOR, PT AWARE OF PLAN OF CARE AND DENIES ANY CONCERNS, WILL CONTINUE TO MONITOR. 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 No deformity noted,. [facility] Anabel Gardiner RN [facility] 2024-07-09 19:19:00 Associated Order(s): EKG-12 Lead ONCE Pre-Procedure Diagnose(s): Fall, initial encounter Post-Procedure Diagnose(s): Fall, initial encounter [facility] Emergency Department Note Patient Name: Linda Menezes Date of : 1950 74 year old female Treatment Room: NC[facility] Primary Care Physician: Shaun Velasquez Patient Escorted by: Self [9] Mode of Arrival: EMS - [facility] ([place] [43] EMS Treatment Prior to ED Arrival: [employer] TEACHER treatment: Analgesic [employer] SCIENCE TEACHER treatment comments: 500mg Tylenol Travel and Exposure Screening: Symptoms Does patient have any of these symptoms?: (not recorded) Exposure Screening Has patient had contact with someone with a communicable disease in the last month?: (not recorded) Diseases exposed to:: (not recorded) Is Patient ?: (not recorded) Exposure Date: (not recorded) Chief Complaint: Chief Complaint Patient presents with Fall History of Present Illness: 74 y.o. female s/p trip and fall onto floor with c/o head, neck and Left shoulder, elbow, knee and ankle injury/pain. Denies LOC Past Medical History/Immunizations: Past Medical History: Diagnosis Date A-fib CHF (congestive heart failure) CKD (chronic kidney disease) Dyslipidemia Essential (primary) hypertension GERD (gastroesophageal reflux disease) Major depressive disorder, single episode, unspecified Myocardial infarction ERIC (obstructive sleep apnea) Type 2 diabetes mellitus Tetanus received in last 5 years: Yes Childhood immunizations: Up-to-date Allergies: No Known Allergies Past Social History: Tobacco Use Never smoked or used smokeless tobacco. Alcohol Use Not Currently. Drug Use Never. Past Surgical History: Past Surgical History: Procedure Laterality Date APPENDECTOMY HYSTERECTOMY OTHER cataract surgey REMOVAL GALLBLADDER THYROIDECTOMY Review of Systems: Review of Systems Constitutional: Negative. HENT: Negative. Eyes: Negative. Respiratory: Negative. Breasts: Negative. Cardiovascular: Negative. Gastrointestinal: Negative. Genitourinary: Negative. Musculoskeletal: Positive for arthralgias and myalgias. Skin: Negative. Neurological: Negative. Psychiatric/Behavioral: Negative. Endocrine: Endocrine negative Physical Exam: ED Triage Vitals [07/09/241926] Weight 74.8 kg (165 lb) Actual or estimated Actual Height 1.6 m (5' 3") BP 126/73 Pulse 69 Resp 18 Temp 36.6 ?C (97.8 ?F) Temp source Oral SpO2 97 % Measured on Room air Physical Exam Vitals and nursing note reviewed. Constitutional: General: She is not in acute distress. Appearance: Normal appearance. She is not ill-appearing, toxic-appearing or diaphoretic. HENT: Head: Normocephalic. Nose: Nose normal. Eyes: Pupils: Pupils are equal, round, and reactive to light. Cardiovascular: Rate and Rhythm: Normal rate. Pulses: Normal pulses. Pulmonary: Effort: Pulmonary effort is normal. No respiratory distress. Abdominal: Palpations: Abdomen is soft. Musculoskeletal: Cervical back: Tenderness present. Comments: Left Knee--small effusion, TTP, FROM Left shoulder--FROM, ttp Left elbow-FROM, ttp Left ankle-slight swelling, ttp, from, no deformity Neurological: Mental Status: She is alert. Radiology: XR Shoulder 2+ vw left Final Result ORDERING PHYSICIAN: GLYNN GATES HISTORY: Shoulder pain COMPARISON: none FINDINGS: A total of 3 views of the left shoulder demonstrate no fracture or dislocation. There are moderate degenerative changes of the acromioclavicular joint. The visualized portion of the left lung and ribs are normal. IMPRESSION No acute fractures or dislocations. RL: 135 Knee 3 vw left Final Result Ordering Physician: GLYNN GATES HISTORY: Left knee pain COMPARISON: none FINDINGS: Three views of the left knee. There is no fracture or dislocation. There is no joint effusion. The joint spaces are normal. Soft tissues are normal. IMPRESSION No acute fractures or dislocations. RL: 135 Elbow <3 vw left Final Result ORDERING PHYSICIAN:GLYNN GATES CLINICAL INFORMATION: fall, left elbow pain COMPARISON: None Technique: 3 views of the left elbow Findings: Overall mineralization is age appropriate. No acute fractures or dislocations are seen. There is no elbow joint effusion. Note is opaque foreign bodies are seen in the soft tissues. Suspected previous bony infarct is seen in the distal diaphysis of the left humerus. IMPRESSION No acute fractures or dislocations. END OF REPORT RL135 Hips 3 vw left Final Result ORDERING PHYSICIAN:GLYNN GATES CLINICAL INFORMATION: fall, left hip pain COMPARISON: None Technique: 2 views of the left hip Findings: Mineralization is age appropriate. No acute fractures or dislocations are seen. No radiopaque foreign bodies are seen in the soft tissues. IMPRESSION No acute fractures or dislocations. END OF REPORT RL135 Ankle <3 vw left Final Result ORDERING PHYSICIAN:GLYNN GATES CLINICAL INFORMATION: fall, left ankle pain COMPARISON: None Technique: 3 views of the left ankle Findings: Postsurgical changes of open reduction internal fixation are seen at the level of the distal left fibula. The medial malleolus is a slightly irregular appearance. There is also slight asymmetric widening of the medial clear space at the level of the ankle mortise on the AP view. Soft tissue edema is seen. No foreign bodies are seen in the soft tissues. IMPRESSION Slightly irregular appearance of the medial malleolus with asymmetric widening of the medial clear space. This could be related to previous trauma, however no prior studies available for comparison. A new/acute underlying fracture cannot be ruled out. This can be evaluated further with CT. END OF REPORT RL135 Chest 1 vw Final Result ORDERING PHYSICIAN: GLYNN GATES HISTORY: fall, chest pain COMPARISON: none FINDINGS: Single frontal view of the chest. Heart is normal in size. There is no pulmonary edema. There are no focal areas of consolidation. There is no pneumothorax. There are no pleural effusions. Osseous structures are unremarkable. Please note that chest radiography is not a sensitive modality for the detection of masses. IMPRESSION No radiographic evidence of acute cardiopulmonary process. RL: 135 Head wo contrast Preliminary Result EXAM: CT HEAD WO CONTRAST, CT CERVICAL SPINE WO CONTRAST HISTORY: Fall. TECHNIQUE: Routine CTs of the head and cervical spine were performed without intravenous contrast, and coronal and sagittal reformatted images were generated. COMPARISON: 02/08/2024. FINDINGS: CT HEAD: The ventricles and cerebral sulci are normal in caliber and configuration. No hydrocephalus, midline shift or pathological extra-axial fluid collection is present. The perimesencephalic cisterns are unremarkable. There is no acute intracranial hemorrhage or significant mass effect. Mild periventricular hypoattenuation, nonspecific, may be seen with chronic microvascular changes. The rojas-white matter differentiation is preserved. The mastoid air cells and paranasal air sinuses are clear. The calvarium and central skull base are unremarkable. CT CERVICAL SPINE: The cervical curvature is normal. The vertebral bodies are normal in height and in normal alignment. No facet fracture or subluxation is present. The craniocervical junction is intact. The prevertebral soft tissues are unremarkable. Multilevel calcification of posterior longitudinal is noted. Osteopenia is present. The visualized cervical soft tissues and visualized lung apices are unremarkable. IMPRESSION 1. No acute intracranial abnormality. 2. No acute fracture or traumatic malalignment of the cervical spine. Preliminary Report Dictated by Resident: Phoebe Ye CT Cervical spine wo contrast Preliminary Result EXAM: CT HEAD WO CONTRAST, CT CERVICAL SPINE WO CONTRAST HISTORY: Fall. TECHNIQUE: Routine CTs of the head and cervical spine were performed without intravenous contrast, and coronal and sagittal reformatted images were generated. COMPARISON: 02/08/2024. FINDINGS: CT HEAD: The ventricles and cerebral sulci are normal in caliber and configuration. No hydrocephalus, midline shift or pathological extra-axial fluid collection is present. The perimesencephalic cisterns are unremarkable. There is no acute intracranial hemorrhage or significant mass effect. Mild periventricular hypoattenuation, nonspecific, may be seen with chronic microvascular changes. The rojas-white matter differentiation is preserved. The mastoid air cells and paranasal air sinuses are clear. The calvarium and central skull base are unremarkable. CT CERVICAL SPINE: The cervical curvature is normal. The vertebral bodies are normal in height and in normal alignment. No facet fracture or subluxation is present. The craniocervical junction is intact. The prevertebral soft tissues are unremarkable. Multilevel calcification of posterior longitudinal is noted. Osteopenia is present. The visualized cervical soft tissues and visualized lung apices are unremarkable. IMPRESSION 1. No acute intracranial abnormality. 2. No acute fracture or traumatic malalignment of the cervical spine. Preliminary Report Dictated by Resident: Phoebe Ye Lab Results: Lab Results - No data to display EKG: If EKG completed, see Procedure Note. Orders and Treatments: Orders Placed This Encounter Procedures CT Head wo contrast CT Cervical spine wo contrast XR Shoulder 2+ vw left XR Knee 3 vw left XR Elbow <3 vw left XR Hips 3 vw left XR Ankle <3 vw left XR Chest 1 vw No orders of the defined types were placed in this encounter. First Provider Eval: ED Events Date/Time Event User Comments 07/09/241924 Medical Screening Begins GLYNN GATES MD -- 07/09/241924 First Provider Evaluation GLYNN GATES MD -- ED COURSE Diagnosis/Impression as of 07/09/242144 Fall, initial encounter Procedures: EKG-12 Lead ONCE Date/Time: 07/09/2024 8:02 PM Performed by: Glynn Gates MD Authorized by: Glynn Gates MD ECG interpreted by ED Physician in the absence of a rn plasma center: yes Previous ECG: Previous ECG: Compared to current Similarity: No change Interpretation: Interpretation: non-specific Rate: ECG rate assessment: normal Rhythm: Rhythm: sinus rhythm Ectopy: Ectopy: none QRS: QRS axis: Normal QRS intervals: Normal QRS conduction: normal ST segments: ST segments: Non-specific T waves: T waves: non-specific MDM: Medical Decision Making Amount and/or Complexity of Data Reviewed Radiology: ordered. A) Mechanical Fall, Left Knee Contusion with Effusion, Left Shoulder/Elbow/Ankle Strain Disposition/Condition: ED Disposition None Discharge Medications: Patient's Medications START taking these medications No medications on file CONTINUE taking these medications which have NOT CHANGED ACETAMINOPHEN-CODEINE 300-30 MG TABLET Take 1 tablet by mouth every 6 (six) hours as needed. ALLOPURINOL 100 MG TABLET Take 1 tablet by mouth in the morning. AMLODIPINE 5 MG TABLET Take 1 tablet by mouth in the morning. APIXABAN 5 MG TABLET Take 1 tablet by mouth in the morning and 1 tablet in the evening. ASPIRIN 81 MG CHEWABLE TABLET Take 1 tablet by mouth in the morning. CARVEDILOL 6.25 MG TABLET Take 1 tablet by mouth in the morning and 1 tablet in the evening. Take with meals. DIPHENOXYLATE-ATROPINE (LOMOTIL) 2.5-0.025 MG TABLET Take 1 tablet by mouth every 6 (six) hours as needed. DIVALPROEX (DEPAKOTE) 250 MG DELAYED RELEASE TABLET Take 1 tablet by mouth at bedtime. DIVALPROEX ER (DEPAKOTE ER) 500 MG 24 HR TABLET Take 1 tablet by mouth at bedtime. DOCUSATE 100 MG CAPSULE Take 1 capsule by mouth in the morning and 1 capsule in the evening. DULOXETINE 30 MG CAPSULE Take 2 capsules by mouth in the morning and 2 capsules in the evening. EMPAGLIFLOZIN (JARDIANCE) 10 MG Take 1 tablet by mouth in the morning. FLUTICASONE PROPIONATE 50 MCG/ACTUATION NASAL SPRAY 2 sprays to each nare once daily; Dispense 1 container as available for a 10 day supply FUROSEMIDE 20 MG TABLET Take 1 tablet by mouth in the morning. GABAPENTIN 100 MG CAPSULE Take 6 capsules by mouth in the morning and 6 capsules at noon and 6 capsules in the evening. HYDROCODONE-ACETAMINOPHEN 7.5-325 MG PER TABLET Take 1 tablet by mouth every 8 (eight) hours as needed for Pain. INSULIN GLARGINE 100 UNIT/ML INJECTION inject 10 Units under the skin in the morning and 10 Units in the evening. IPRATROPIUM-ALBUTEROL 0.5 MG-3 MG(2.5 MG BASE)/3 ML NEBULIZER SOLUTION 3 mL every 6 (six) hours as needed for Wheezing or Shortness of Breath. LACTULOSE 10 GRAM/15 ML ORAL SOLUTION Take 30 mL by mouth 2 (two) times daily as needed for Constipation. LEVOTHYROXINE 137 MCG TABLET Take 1 tablet by mouth every morning. LISINOPRIL 2.5 MG TABLET Take 1 tablet by mouth in the morning. LOPERAMIDE HCL 2 MG TAB TABLET Take 1 tablet by mouth every 4 (four) hours as needed for Other (diarrhea). LORATADINE 10 MG CHEW Take 10 mg by mouth as needed for Other (Allergy). LOVASTATIN 20 MG TABLET Take 1 tablet by mouth at bedtime. MELATONIN 5 MG TABLET Take 1 tablet by mouth at bedtime. METFORMIN 1,000 MG TABLET Take 850 mg by mouth in the morning and 850 mg in the evening. Take with meals. NOVOLOG U-100 INSULIN ASPART SC inject under the skin. Per sliding scale OMEPRAZOLE 40 MG CAPSULE Take 1 capsule by mouth in the morning. ONDANSETRON 4 MG TABLET Take 1 tablet by mouth every 8 (eight) hours as needed for Nausea and Vomiting (N/V). START taking Modified Medications as Prescribed No medications on file STOP taking these medications No medications on file Follow-up: Electronically signed by: Glynn Gates MD 07/09/242144 [facility] 2024 15:03:05 Patient cancelled due to not receiving a PCP referral, will call back if she wants to RS this appt. LI Patel [facility] 2024 14:58:45 Linda Menezes is a 74 year old female [place] calling to see if referral was received. Warm transferred to clinic. LI Ortiz [facility] 2024-05-03 10:22:28 TRANSITIONAL CARE MANAGEMENT ASSESSMENT 05/03/2024 Linda Menezes [id number] Linda Menezes is a 73 year old /White female was admitted on 05/01/24 to [facility], [facility] SUR[facility]. She was discharged on 05/02/24 with discharge disposition of HR- Routine Discharge. Admitting Physician: Hazel Wells Discharge Diagnosis: Not noted. REASON FOR ADMISSION: Chest Pain ACS rule out No linked episodes TCM [id number] outreach documentation: Discharge Assessment Chart Assessed: 05/03/24 Chart Reviewed - Post Discharge Call Deferred due to Change in Discharge Status.: Discharged to LTAC ([facility], [address] [place] [address] (Ph) [phone] (F) [phone]) TCM Outreach Completed: 05/03/24 Future Appointments: Future Appointments Provider Department Dept Phone 05/15/2024 11:30 AM Michele Verma [facility] [phone] Aleyda Chapman RN [facility] 2024-05-02 18:26:36 Report given to AMISHA Rlodan at [facility]. LLT Cady Viramontes RN [facility] 2024-05-02 17:51:45 Problem: Falls, Risk of Goal: Absence of falls 05/02/20241750 by Cady Viramontes RN Outcome: Resolved 05/02/20241712 by Cady Viramontes RN Outcome: Progressing as expected Problem: Pain Goal: Control of pain at or below patient's documented comfort goal 05/02/20241750 by Cady Viramontes RN Outcome: Resolved 05/02/20241712 by Cady Viramontes RN Outcome: Progressing as expected Goal: Reduction in pain sensation 05/02/20241750 by Cady Viramontes RN Outcome: Resolved 05/02/2024 171 by Cady Viramontes RN Outcome: Progressing as expected Problem: Discharge Planning Goal: Adequate for discharge 05/02/2024 175 by Cady Viramontes RN Outcome: Resolved 05/02/2024 171 by Cady Viramontes RN Outcome: Progressing as expected Goal: Effective communication 05/02/2024 175 by Cady Viramontes RN Outcome: Resolved 05/02/2024 171 by Cady Viramontes RN Outcome: Progressing as expected Problem: Skin integrity Impaired (Risk or Actual) Goal: Prevention of new skin breakdown 05/02/2024 175 by Cady Viramontes RN Outcome: Resolved 05/02/2024 171 by Cady Viramontes RN Outcome: Progressing as expected Problem: Venous Thromboembolism, (actual or risk of) Goal: Absence of venous thromboembolism (Risk) 05/02/2024 175 by Cady Viramontes RN Outcome: Resolved 05/02/20241712 by Cady Viramontes RN Outcome: Progressing as expected [facility] 2024-05-02 17:13:43 Problem: Falls, Risk of Goal: Absence of falls Outcome: Progressing as expected Problem: Pain Goal: Control of pain at or below patient's documented comfort goal Outcome: Progressing as expected Goal: Reduction in pain sensation Outcome: Progressing as expected Problem: Discharge Planning Goal: Adequate for discharge Outcome: Progressing as expected Goal: Effective communication Outcome: Progressing as expected Problem: Skin integrity Impaired (Risk or Actual) Goal: Prevention of new skin breakdown Outcome: Progressing as expected Problem: Venous Thromboembolism, (actual or risk of) Goal: Absence of venous thromboembolism (Risk) Outcome: Progressing as expected [facility] 2024-05-01 21:33:18 Problem: Falls, Risk of Goal: Absence of falls Outcome: Progressing as expected Problem: Pain Goal: Control of pain at or below patient's documented comfort goal Outcome: Progressing as expected Goal: Reduction in pain sensation Outcome: Progressing as expected Problem: Discharge Planning Goal: Adequate for discharge Outcome: Progressing as expected Goal: Effective communication Outcome: Progressing as expected Problem: Skin integrity Impaired (Risk or Actual) Goal: Prevention of new skin breakdown Outcome: Progressing as expected Problem: Venous Thromboembolism, (actual or risk of) Goal: Absence of venous thromboembolism (Risk) Outcome: Progressing as expected [facility] 2024-05-01 19:16:39 Patient transported via W/C to 2219. Patient alert, warm, dry, pink upon departure from ER. LLT Leonardo Cloud RN [facility] 2024-05-01 19:04:41 Nurse Report Report given to Bailee ELLSWORTH on Telemetry. Chief complaint, assessment findings, infusion verify and orders reviewed. Plan of care discussed at bedside with patient. Patient verbalized understanding. LEONARDO CLOUD RN [facility] 2024-05-01 14:57:19 Patient by [facility] from [facility] for chest pain that started about one hour ago. Pain radiates to left shoulder and left arm. Was 9/10, no 7/10. Hx of Afib and GA (no stents per patient). EMS gave 325 ASA, one SL nitro with some relief, and IV. Ilan Singer RN [facility] 2024-05-01 14:52:00 AdmissionCare Guideline: Chest Pain - OBS, Observation Based on the indications selected for the patient, the bed status of Observation was determined to be MET The following indications were selected as present at the time of evaluation of the patient: - Observation Care Admission Criteria - Observation care is indicated for 1 or more of the following: - Chest pain (or other anginal equivalent) not classified as low risk for acute coronary syndrome, as indicated by 1 or more of the following: - Patient classified as intermediate risk or high risk for acute coronary syndrome (eg, via use of a clinical decision tool or risk calculator (eg, HEART score greater than 3)) AdmissionCare documentation entered by: Lynette Zarate [facility], 28th edition, Copyright ? 2023 [facility] All Rights Reserved. [id number]:15:26-05:00 [facility] 2024-02-08 20:34:43 Pt discharged with diagnosis of fall, encouraged hydration. Printed and verbal instructions reviewed with and given to pt. Pt. verbalized understanding of teaching and recommended follow-up. Denies questions or concerns at this time. Pt left via EMS at discharge to [facility]. Appears in no apparent distress. Advised to seek medical attention for new/prolonged/worsening of symptoms, Symptoms improved. No adverse reaction to meds given in ER noted upon discharge PIV d'cd, dressing to site, catheter in tact. T [facility] 2024-02-08 19:54:57 Nurse Report Report given to SENG Mata at [facility]. Chief complaint, assessment findings and orders reviewed. Plan of care discussed with nurse. Advised to follow up with PCP in one week, Esperanza verbalized understanding. Maye Scherer RN T [facility] 2024-02-08 19:53:46 [facility] 25 min T Beena Viera [facility] 2024-02-08 19:51:32 Patient on BSC. Call light within reach. Dung Ritchie RN [facility] 2024-02-08 18:26:04 Parag called for an update; notified of upcoming discharge. Davida Rizo RN [facility] 2024-02-08 16:23:47 Pt requested that her DIL Parag be notified that the patient is in the ed. Parag notified at this time. [facility] 2024-02-08 14:53:26 Pt ambulates with a walker [facility] 2024-02-08 14:49:13 Pt arrived via [facility] c/o fall. Pt was "sleeping and fell from bed landing on her right side." Fall was unwitnessed, pt is on blood thinners. No LOC Maye Scherer RN [facility] 2023-07-12 13:24:52 Called patient 2nd time, pt did not answer. Left voicemail as well to call back. Mychart not active to sent patient a message. THETIC AIDE Cady Currie MA [facility] 2023-07-07 09:42:36 Called patient and left message to call back for an appointment with kelvin don. Patient does not have mychart active. THETIC AIDE Cady Currie MA [facility] 2023-02-16 02:22:20 Pt discharged home. Given all education and information regarding pain management; follow up ; and s/s of worsening condition. Ems at bedside for patients transport. Escorted out via stretcher with no further concerns. Marti Aden RN [facility] 2023-02-16 01:37:45 Pt ambulatory to RR. Tolerated well. No back in bed and awaiting transport. Stable. Will cont to monitor. [facility] 2023-02-16 01:21:11 Pt updated on EMS ETA 1.5 hr. NAD, sitting on bedside playing cell phone games, discharge pending. Gretel Junior RN [facility] 2023-02-15 23:10:58 Chronic mid back pain that seemed to worsen today after they did new PT movements on her today Anabel Gardiner RN [facility] 2020-06-30 14:09:00 [facility] ([facility]) Infectious Dis. Progress Note REPORT#:[id number] REPORT STATUS: Signed DATE:06/30/20 TIME:1408 PATIENT: LINDA MENEZES UNIT #: [id number] ROOM/BED: [place] [id number] : 49 AGE: 70 SEX: F ATTEND: Murtaza Persaud MD ADM AUTHOR: Tommy Loco MD * ALL edits or amendments must be made on the electronic/computer document * Subjective Chief Complaint: F/u covid HPI: Respiratory status stable, she is on room air. She is off antibiotics. Review of Systems Constitutional: Denies: chills, fever. Objective General VS/I O: Last Documented: Result Date Time Pulse Ox 95 06/30 1138 B/P 111/69 06/30 1138 B/P Mean 82.9 06/30 1138 O2 Delivery Room air 06/30 1138 Temp 36.7 06/30 1138 Pulse 73 06/30 1138 Resp 18 06/30 1138 FiO2 21 06/29 0730 O2 Flow Rate 0 06/26 2202 Vital Signs Date Temp Pulse Resp B/P B/P Mean Pulse Ox FiO2 06/29-06/30 36.3-36.7 65-77 16-18 98-115/59-72 71.8-86.2 95-100 24 hour I O ending at 0700: 06/30 0700 06/29 1900 Intake Total 400 Output Total Balance 400 Intake, Oral 400 Number 1 Bowel Movements Number Voids 1 PATIENT WEIGHT: Weight (lb): Weight (oz): Weight (kg): 80.100 Physical Exam General appearance: alert, awake Head/Eyes: atraumatic Cardiovascular: regular rate rhythm Respiratory: on oxygen, symmetric expansion, no distress Abdomen: no distention Extremities: no clubbing, no cyanosis Neuro/HOME HEALTH CARE CASE MANAGER: alert, normal speech Diagnosis, Assessment Plan Free Text A P: Labs: WBC normal Creatinine normal Covid SHONA pos Imaging: CTA GGO b/l, old PE TTE reviewed Assessment: 1. Recent covid-19 pneumonia. Current findings are likely sequela from recent infection. 2. Positive covid SHONA does not indicate active disease. 3. Pulmonary embolism, likely old. 4. Chronic systolic heart failure. 5. Type 2 diabetes with hyperglycemia. Plan: 1. No need to treat with remdesivir. 2. Steroids per primary team. 3. Observe closely without antibiotics. 4. No need of respiratory isolation. 5. Discharge likely today. at 1607 RPT #: [id number] END OF REPORT [facility] 2020-06-30 09:48:00 [facility] ([facility]) Hospitalist Progress Note REPORT#:[id number] REPORT STATUS: Signed DATE:06/30/20 TIME:947 PATIENT: LINDA MENEZES UNIT #: [id number] ROOM/BED: [place] [id number] : 49 AGE: 70 SEX: F ATTEND: Murtaza Persaud MD ADM AUTHOR: Murtaza Persaud MD * ALL edits or amendments must be made on the electronic/computer document * Subjective Chief Complaint: Chest pain HPI: 70-year-old female with history of recent COVID 19 pneumonia, cardiomyopathy, hypertension, hyperlipidemia, hypothyroidism, diabetes mellitus type 2, who was transferred from [place] after COVID 19 pneumonia treatment [facility] due to debility and was sent to the emergency department for acute onset of chest pain in the middle of her chest, no radiation, sharp, intermittent, lasting minutes, no associated symptoms. In the emergency department, troponin was slightly elevated at the upper level of normal. EKG showed slight abnormalities that were reviewed by cardiology and determine likely related to her cardiomyopathy. Repeat troponin started to come down. Patient is free of chest pain. No need for emergent left heart catheterization at this time. CTA of the chest showed pulmonary embolus that can be determined whether acute or chronic. Patient was started on heparin. She is in the isolation unit due to COVID 19 positive. Past medical history: As stated in HPI Surgical history: Thyroidectomy, hysterectomy, cholecystectomy, bowel obstruction. Social history: Negative 3. Allergies: No known drug allergies. CODE STATUS: DNR discussed with patient and documentation available. Family history: Significant for heart disease and stroke in her father. Hospital course: 06/21/2020: Troponin flattened. Patient with intermittent chest pain. Elevated D dimer. Heparin changed for lovenox. 06/22/2020: Intermittent chest pain. H H stable. Nitro SL PRN added. ECHO pending. 06/23/2020: Patient is free of chest pain. H H has remained stable. ID consulted to assess COVID 19 active infection versus noncontagious carrier. 06/24/2020: H H stable after initiation of Eliquis. retirement facility order in place. Patient will be cleared by tomorrow. I discussed the case with ID and positive test for COVID is a sequela of recent cavity infection. Patient noncontagious. 06/25/2020: Patient being retested for COVID 19. [facility] needs a negative test. Otherwise, patient is free of chest pain. 06/26/2020: Patient has no shortness of breath or chest pain. Pending jail facility placement at this time. 06/27/2020: Patient has no complaints. No chest pain. No shortness of breath. Pending jail facility placement. 06/28/2020: Glucose better controlled. Pending placement 06/29/2020: Persintent hyperglycemia over 200. Lantus increased to 12 units 06/30/2020: Patient has no acute complaints. She still pending for approval of jail facility. She is clear from the medical standpoint. Subjective: Patient seen and evaluated at bedside. She has no acute complaints. Per nurse, no other acute events. Review of Systems All systems rev neg: except as marked Objective General VS/I O: Vital Signs: Date Time Temp Pulse Resp B/P B/P Pulse O2 O2 Flow FiO2 Mean Ox Delivery Rate 06/30 0809 36.3 71 16 115/72 86.2 97 Room air 06/30 0332 36.5 65 18 111/69 82.9 96 Room air 06/29 2351 36.7 68 18 98/59 71.8 100 Room air 06/29 1926 36.5 77 18 102/63 76.1 97 Room air 06/29 1711 36.7 71 16 113/72 85.5 97 Room air 06/29 1057 36.6 71 16 110/72 84.4 97 24 hour I O ending at 0700: 06/30 0700 06/29 1900 Intake Total 400 Output Total Balance 400 Intake, Oral 400 Number 1 Bowel Movements Number Voids 1 PATIENT WEIGHT: Weight (lb): Weight (oz): Weight (kg): 80.100 Medications: Active Meds + DC'd Last 24 Hrs Insulin Glargine 12 UNIT DAILY SUBQ Prednisone 10 MG DAILY PO Apixaban 5 MG Q12HR PO Aspirin 81 MG DAILY PO Isosorbide Mononitrate 60 MG BID PO Nitroglycerin 0.4 MG Q5M PRN PRN SL Carvedilol 3.125 MG Q12HR PO Atorvastatin Calcium 20 MG BEDTIME PO Insulin Human Lispro S/SCALE AC HS SUBQ Insulin Glargine 10 UNIT DAILY SUBQ (DC) Albumin Human 3 ML ONCE PRN IV Ascorbic Acid 500 MG DAILY PO Duloxetine HCl 20 MG DAILY PO Furosemide 20 MG DAILY PO Levothyroxine Sodium 125 MCG DAILY@0630 PO Spironolactone 25 MG DAILY PO Budesonide 0.5 MG RTQ12H NEB Zinc Sulfate 220 MG TID PO Famotidine 20 MG BID AC PO Cholecalciferol 2,000 INTL.UNITS DAILY PO (CKD) Al Hydrox/Mg Hydrox/Simethicone 30 ML Q4H PRN PRN PO Albuterol Sulfate 2 PUFF RTQ4H PRN PRN INH Benzonatate 100 MG Q6H PRN PRN PO Bisacodyl 10 MG ASDIR PRN RECTAL Dextrose/Water 50 ML ASDIR PRN IV Docusate Sodium 100 MG BID PRN PRN PO Hydralazine HCl 10 MG Q4H PRN PRN IV Hydrocodone Bitart/Acetaminophen 1 TAB Q6H PRN PRN PO Labetalol HCl 10 MG Q4H PRN PRN IV Ondansetron HCl 4 MG Q4H PRN PRN IV Trazodone HCl 50 MG BEDTIME PRN PRN PO Physical Exam General appearance: frail Head/Eyes: atraumatic, EOMI ENT: moist mucosal membranes, normal dentition Neck: full range of motion, non-tender Cardiovascular: normal capillary refill, normal heart sounds Respiratory: aerating well, clear to auscultation Abdomen: non-tender, normal bowel sounds Extremities: edema, moves all, normal capillary refill Musculoskeletal: no CVA tenderness, no midline vertebral tend Neuro/HOME HEALTH CARE CASE MANAGER: alert, oriented X 3, CNII-XII intact Skin: abnormal color, dry Results Findings/Data: Laboratory Tests 06/30 06/29 06/29 06/29 0710 1924 1710 1056 Chemistry POC Glucose (70 - 110 mg/dL) 167 H 219 H 96 215 H Diagnosis, Assessment Plan Orders: Procedure Date/time Status Discharge Order 06/30 1255 Active Consultants: cardiology Code status: do not resuscitate Plan discussed with: patient, nurse Free Text DxA P Notes Free text DxA P notes: Assessment: Acute atypical chest pain Pulmonary embolus. Chronic versus acute. COVID positive Corticosteroid-induced leukocytosis Cardiomyopathy Essential hypertension Elevated troponin Hyperlipidemia Hypothyroidism Diabetes mellitus type 2 Plan: Continue current care Eliquis Cardiology follows Nitro SL PRN Blood pressure control Droplet isolation Repeat COVID 19 test positive. Carrier. Noncontagious Continue Statin Sliding scale insulin with titration. Lantus increased CODE STATUS DNR Guarded prognosis CM consult for SNF evaluation. Patient agreeable. Pending approval/placement ID follows. at 1648 RPT #: [id number] END OF REPORT [facility] 2020-06-29 07:19:00 [facility] ([facility]) Hospitalist Progress Note REPORT#:[id number] REPORT STATUS: Signed DATE:06/29/20 TIME:718 PATIENT: LINDA MENEZES UNIT #: [id number] ROOM/BED: [place] [id number] : 49 AGE: 70 SEX: F ATTEND: Murtaza Persaud MD ADM AUTHOR: Murtaza Persaud MD * ALL edits or amendments must be made on the electronic/computer document * Subjective Chief Complaint: Chest pain HPI: 70-year-old female with history of recent COVID 19 pneumonia, cardiomyopathy, hypertension, hyperlipidemia, hypothyroidism, diabetes mellitus type 2, who [facility] [place] [facility] and was sent to the emergency department for acute onset of chest pain in the middle of her chest, no radiation, sharp, intermittent, lasting minutes, no associated symptoms. In the emergency department, troponin was slightly elevated at the upper level of normal. EKG showed slight abnormalities that were reviewed by cardiology and determine likely related to her cardiomyopathy. Repeat troponin started to come down. Patient is free of chest pain. No need for emergent left heart catheterization at this time. CTA of the chest showed pulmonary embolus that can be determined whether acute or chronic. Patient was started on heparin. She is in the isolation unit due to COVID 19 positive. Past medical history: As stated in HPI Surgical history: Thyroidectomy, hysterectomy, cholecystectomy, bowel obstruction. Social history: Negative 3. Allergies: No known drug allergies. CODE STATUS: DNR discussed with patient and documentation available. Family history: Significant for heart disease and stroke in her father. Hospital course: 06/21/2020: Troponin flattened. Patient with intermittent chest pain. Elevated D dimer. Heparin changed for lovenox. 06/22/2020: Intermittent chest pain. H H stable. Nitro SL PRN added. ECHO pending. 06/23/2020: Patient is free of chest pain. H H has remained stable. ID consulted to assess COVID 19 active infection versus noncontagious carrier. 06/24/2020: H H stable after initiation of Eliquis. retirement facility order in place. Patient will be cleared by tomorrow. I discussed the case with ID and positive test for COVID is a sequela of recent cavity infection. Patient noncontagious. 06/25/2020: Patient being retested for COVID 19. [facility] needs a negative test. Otherwise, patient is free of chest pain. 06/26/2020: Patient has no shortness of breath or chest pain. Pending jail facility placement at this time. 06/27/2020: Patient has no complaints. No chest pain. No shortness of breath. Pending jail facility placement. 06/28/2020: Glucose better controlled. Pending placement 06/29/2020: Persintent hyperglycemia over 200. Lantus increased to 12 units Subjective: Patient seen and evaluated at bedside. She has no acute complaints. Per nurse, no other acute events. Review of Systems All systems rev neg: except as marked Objective General VS/I O: Vital Signs: Date Time Temp Pulse Resp B/P B/P Pulse O2 O2 Flow FiO2 Mean Ox Delivery Rate 06/29 0408 36.7 69 18 104/67 79.7 97 Room air 06/28 2341 36.7 73 18 101/66 77.5 96 Room air 06/28 2051 94 Room air 21 06/28 1918 36.8 75 18 101/65 76.9 97 Room air 06/28 1708 36.7 75 16 102/66 78.2 98 Room air 06/28 1222 36.7 75 16 105/68 80.4 96 Room air 06/28 0812 36.7 68 16 110/69 82.8 96 Nasal cannula 06/28 0736 98 Room air 21 24 hour I O ending at 0700: 06/29 0700 06/28 1900 Intake Total Output Total Balance Number Voids 2 1 PATIENT WEIGHT: Weight (lb): Weight (oz): Weight (kg): 80.100 Medications: Active Meds + DC'd Last 24 Hrs Prednisone 10 MG DAILY PO Apixaban 5 MG Q12HR PO Aspirin 81 MG DAILY PO Isosorbide Mononitrate 60 MG BID PO Nitroglycerin 0.4 MG Q5M PRN PRN SL Carvedilol 3.125 MG Q12HR PO Atorvastatin Calcium 20 MG BEDTIME PO Insulin Human Lispro S/SCALE AC HS SUBQ Insulin Glargine 10 UNIT DAILY SUBQ Albumin Human 3 ML ONCE PRN IV Ascorbic Acid 500 MG DAILY PO Duloxetine HCl 20 MG DAILY PO Furosemide 20 MG DAILY PO Levothyroxine Sodium 125 MCG DAILY@0630 PO Spironolactone 25 MG DAILY PO Budesonide 0.5 MG RTQ12H NEB Zinc Sulfate 220 MG TID PO Famotidine 20 MG BID AC PO Cholecalciferol 2,000 INTL.UNITS DAILY PO (CKD) Al Hydrox/Mg Hydrox/Simethicone 30 ML Q4H PRN PRN PO Albuterol Sulfate 2 PUFF RTQ4H PRN PRN INH Benzonatate 100 MG Q6H PRN PRN PO Bisacodyl 10 MG ASDIR PRN RECTAL Dextrose/Water 50 ML ASDIR PRN IV Docusate Sodium 100 MG BID PRN PRN PO Hydralazine HCl 10 MG Q4H PRN PRN IV Hydrocodone Bitart/Acetaminophen 1 TAB Q6H PRN PRN PO Labetalol HCl 10 MG Q4H PRN PRN IV Ondansetron HCl 4 MG Q4H PRN PRN IV Trazodone HCl 50 MG BEDTIME PRN PRN PO Physical Exam General appearance: frail, alert, awake Head/Eyes: atraumatic, EOMI ENT: moist mucosal membranes, normal dentition Neck: full range of motion, non-tender Cardiovascular: normal capillary refill, normal heart sounds Respiratory: aerating well, clear to auscultation Abdomen: non-tender, normal bowel sounds Extremities: edema, moves all, normal capillary refill Musculoskeletal: no CVA tenderness, no midline vertebral tend Neuro/HOME HEALTH CARE CASE MANAGER: alert, oriented X 3, CNII-XII intact Skin: abnormal color, dry Results Findings/Data: Laboratory Tests 06/28 06/28 06/28 06/28 192 1705 1220 0808 Chemistry POC Glucose (70 - 110 mg/dL) 242 H 236 H 224 H 164 H Diagnosis, Assessment Plan Orders: Procedure Date/time Status NEB TREATMENT SUBSQ 06/28 2053 Active Consultants: cardiology Code status: do not resuscitate Plan discussed with: patient Free Text DxA P Notes Free text DxA P notes: Assessment: Acute atypical chest pain Pulmonary embolus. Chronic versus acute. COVID positive Corticosteroid-induced leukocytosis Cardiomyopathy Essential hypertension Elevated troponin Hyperlipidemia Hypothyroidism Diabetes mellitus type 2 Plan: Continue current care Eliquis Cardiology follows Nitro SL PRN Blood pressure control Droplet isolation Repeat COVID 19 test positive. Carrier. Noncontagious Continue Statin Sliding scale insulin with titration. Lantus increased CODE STATUS DNR Guarded prognosis CM consult for SNF evaluation. Patient agreeable. Pending approval/placement ID follows. at 1329 RPT #: [id number] END OF REPORT [facility] 2020-06-28 10:30:00 [facility] ([facility]) Hospitalist Progress Note REPORT#:[id number] REPORT STATUS: Signed DATE:06/28/20 TIME:1030 PATIENT: LINDA MENEZES UNIT #: [id number] ROOM/BED: [place] [address] : 49 AGE: 70 SEX: F ATTEND: Murtaza Persaud MD ADM AUTHOR: Murtaza Persaud MD * ALL edits or amendments must be made on the electronic/computer document * Subjective Chief Complaint: Chest pain HPI: 70-year-old female with history of recent COVID 19 pneumonia, cardiomyopathy, hypertension, hyperlipidemia, hypothyroidism, diabetes mellitus type 2, who was [facility] [place] [facility] and was sent to the emergency department for acute onset of chest pain in the middle of her chest, no radiation, sharp, intermittent, lasting minutes, no associated symptoms. In the emergency department, troponin was slightly elevated at the upper level of normal. EKG showed slight abnormalities that were reviewed by cardiology and determine likely related to her cardiomyopathy. Repeat troponin started to come down. Patient is free of chest pain. No need for emergent left heart catheterization at this time. CTA of the chest showed pulmonary embolus that can be determined whether acute or chronic. Patient was started on heparin. She is in the isolation unit due to COVID 19 positive. Past medical history: As stated in HPI Surgical history: Thyroidectomy, hysterectomy, cholecystectomy, bowel obstruction. Social history: Negative 3. Allergies: No known drug allergies. CODE STATUS: DNR discussed with patient and documentation available. Family history: Significant for heart disease and stroke in her father. Hospital course: 06/21/2020: Troponin flattened. Patient with intermittent chest pain. Elevated D dimer. Heparin changed for lovenox. 06/22/2020: Intermittent chest pain. H H stable. Nitro SL PRN added. ECHO pending. 06/23/2020: Patient is free of chest pain. H H has remained stable. ID consulted to assess COVID 19 active infection versus noncontagious carrier. 06/24/2020: H H stable after initiation of Eliquis. retirement facility order in place. Patient will be cleared by tomorrow. I discussed the case with ID and positive test for COVID is a sequela of recent cavity infection. Patient noncontagious. 06/25/2020: Patient being retested for COVID 19. [facility] needs a negative test. Otherwise, patient is free of chest pain. 06/26/2020: Patient has no shortness of breath or chest pain. Pending jail facility placement at this time. 06/27/2020: Patient has no complaints. No chest pain. No shortness of breath. Pending jail facility placement. 06/28/2020: Glucose better controlled. Pending placement Subjective: Patient seen and evaluated at bedside. She has no acute complaints. Per nurse, no other acute events. Review of Systems All systems rev neg: except as marked Objective General VS/I O: Vital Signs: Date Time Temp Pulse Resp B/P B/P Pulse O2 O2 Flow FiO2 Mean Ox Delivery Rate 06/28 0812 36.7 68 16 110/69 82.8 96 Nasal cannula 06/28 0736 98 Room air 21 06/28 0431 36.3 63 18 113/63 79.7 96 Room air 06/27 2351 36.4 67 18 101/64 76.4 97 Room air 06/27 2014 95 Room air 21 06/27 1943 36.9 81 18 105/67 79.9 97 Room air 06/27 1712 36.4 87 16 176/81 112.9 97 Room air 06/27 1702 37.1 81 16 115/82 92.8 98 Nasal cannula 06/27 1235 36.7 82 16 167/80 109.1 97 Room air 06/27 1222 36.8 78 16 117/74 88.0 96 Room air 24 hour I O ending at 0700: 06/28 0700 06/27 1900 Intake Total 375 Output Total Balance 375 Intake, Oral 375 Number 1 Bowel Movements PATIENT WEIGHT: Weight (lb): Weight (oz): Weight (kg): 80.100 Medications: Active Meds + DC'd Last 24 Hrs Prednisone 10 MG DAILY PO Apixaban 5 MG Q12HR PO Aspirin 81 MG DAILY PO Isosorbide Mononitrate 60 MG BID PO Nitroglycerin 0.4 MG Q5M PRN PRN SL Carvedilol 3.125 MG Q12HR PO Atorvastatin Calcium 20 MG BEDTIME PO Insulin Human Lispro S/SCALE AC HS SUBQ Insulin Glargine 10 UNIT DAILY SUBQ Albumin Human 3 ML ONCE PRN IV Ascorbic Acid 500 MG DAILY PO Duloxetine HCl 20 MG DAILY PO Furosemide 20 MG DAILY PO Levothyroxine Sodium 125 MCG DAILY@0630 PO Spironolactone 25 MG DAILY PO Budesonide 0.5 MG RTQ12H NEB Zinc Sulfate 220 MG TID PO Famotidine 20 MG BID AC PO Cholecalciferol 2,000 INTL.UNITS DAILY PO (CKD) Al Hydrox/Mg Hydrox/Simethicone 30 ML Q4H PRN PRN PO Albuterol Sulfate 2 PUFF RTQ4H PRN PRN INH Benzonatate 100 MG Q6H PRN PRN PO Bisacodyl 10 MG ASDIR PRN RECTAL Dextrose/Water 50 ML ASDIR PRN IV Docusate Sodium 100 MG BID PRN PRN PO Hydralazine HCl 10 MG Q4H PRN PRN IV Hydrocodone Bitart/Acetaminophen 1 TAB Q6H PRN PRN PO Labetalol HCl 10 MG Q4H PRN PRN IV Ondansetron HCl 4 MG Q4H PRN PRN IV Trazodone HCl 50 MG BEDTIME PRN PRN PO Physical Exam General appearance: frail, alert, awake Head/Eyes: atraumatic, EOMI ENT: moist mucosal membranes, normal dentition Neck: full range of motion, non-tender Cardiovascular: normal capillary refill, normal heart sounds Respiratory: aerating well, clear to auscultation Abdomen: non-tender, normal bowel sounds Extremities: edema, moves all, normal capillary refill Musculoskeletal: no CVA tenderness, no midline vertebral tend Neuro/HOME HEALTH CARE CASE MANAGER: alert, oriented X 3, CNII-XII intact Skin: abnormal color, dry Results Findings/Data: Laboratory Tests 06/28 06/27 06/27 06/27 0808 1940 1645 1220 Chemistry POC Glucose (70 - 110 mg/dL) 164 H 319 H 192 H 286 H Laboratory Tests 06/28 0540 Hematology WBC (3.5 - 11.0 K/mm3) 8.3 RBC (4.70 - 6.10 M/mm3) 2.89 L Hgb (10.4 - 14.9 G/DL) 8.1 L Hct (31.5 - 44.1 %) 26.4 L MCV (84.5 - 98.6 Fl) 91.3 MCH (27.0 - 34.2 pg) 28.0 MCHC (31.5 - 34.0 G/DL) 30.7 L RDW (11.5 - 14.5 SD) 18.4 H Plt Count (150 - 450 K/mm3) 341 MPV (7.0 - 10.5 fL) 10.50 Neut % (Auto) (40 - 76 %) 64.3 Lymph % (Auto) (20.5 - 51.1 %) 23.0 [place] % (Auto) (1.7 - 9.3 %) 11.2 H Eos % (Auto) (0.0 - 6.0 %) 0.7 Baso % (Auto) (0.0 - 2.0 %) 0.1 Neut # (Auto) (1.8 - 7.6 K/mm3) 5.3 Lymph # (Auto) (0.6 - 3.2 K/mm3) 1.9 [place] # (Auto) (0.3 - 1.1 K/mm3) 0.9 Eos # (Auto) (0.0 - 0.4 K/mm3) 0.1 Baso # (Auto) (0.0 - 0.1 K/mm3) 0.0 Abs Immat Gran (auto) (0.00 - 0.03 x10 3/uL) 0.06 H Add Manual Diff (CRITERIA DIFF/SCN) NO Immature Gran % (0.0 - 5.0 %) 0.7 Nucleated RBC % (0.0 - 1.0 /100WBC%) 0.0 Diagnosis, Assessment Plan Consultants: cardiology Code status: full code Plan discussed with: patient, nurse Free Text DxA P Notes Free text DxA P notes: Assessment: Acute atypical chest pain Pulmonary embolus. Chronic versus acute. COVID positive Corticosteroid-induced leukocytosis Cardiomyopathy Essential hypertension Elevated troponin Hyperlipidemia Hypothyroidism Diabetes mellitus type 2 Plan: Continue current care Eliquis Cardiology follows Nitro SL PRN Blood pressure control Droplet isolation Repeat COVID 19 test positive. Carrier. Noncontagious Continue Statin Sliding scale insulin with titration CODE STATUS DNR Guarded prognosis CM consult for SNF evaluation. Patient agreeable. Pending approval/placement ID follows. at 1033 RPT #: [id number] END OF REPORT [facility] 2020-06-27 12:53:00 [facility] ([facility]) Infectious Dis. Progress Note REPORT#:[id number] REPORT STATUS: Signed DATE:06/27/20 TIME:1253 PATIENT: LINDA MENEZES UNIT #: [id number] ROOM/BED: [place] [id number] : 49 AGE: 70 SEX: F ATTEND: Murtaza Persaud MD ADM AUTHOR: Tommy Loco MD * ALL edits or amendments must be made on the electronic/computer document * Subjective Chief Complaint: F/u covid HPI: Respiratory status remains stable, she is on room air. Review of Systems Constitutional: Denies: chills, fever. Objective General VS/I O: Last Documented: Result Date Time Pulse Ox 97 06/27 1235 B/P 167/80 06/27 1235 B/P Mean 109.1 06/27 1235 O2 Delivery Room air 06/27 1235 Temp 36.7 06/27 1235 Pulse 82 06/27 1235 Resp 16 06/27 1235 FiO2 21 06/26 2202 O2 Flow Rate 0 06/26 2202 Vital Signs Date Temp Pulse Resp B/P B/P Mean Pulse Ox FiO2 06/26-06/27 36.6-36.8 66-83 12-27 114-167/57-80 80-109.1 93-98 21 PATIENT WEIGHT: Weight (lb): Weight (oz): Weight (kg): 80.100 Physical Exam General appearance: awake Head/Eyes: atraumatic Cardiovascular: regular rate rhythm Respiratory: on oxygen, symmetric expansion, no distress Abdomen: no distention Extremities: no clubbing, no cyanosis Neuro/HOME HEALTH CARE CASE MANAGER: alert, normal speech Diagnosis, Assessment Plan Free Text A P: Labs: WBC normal Creatinine normal Covid SHONA pos Imaging: CTA GGO b/l, old PE TTE reviewed Assessment: 1. Recent covid-19 pneumonia. Current findings are likely sequela from recent infection. 2. Positive covid SHONA does not indicate active disease. 3. Pulmonary embolism, likely old. 4. Chronic systolic heart failure. 5. Type 2 diabetes with hyperglycemia. Plan: 1. No need to treat with remdesivir. 2. Steroids per primary team. 3. Observe closely without antibiotics. Start broad-spectrum antibiotics if she decompensates. 4. No need of respiratory isolation. 5. Disposition pending. at 2043 RPT #: [id number] END OF REPORT [facility] 2020-06-27 09:12:00 [facility] ([facility]) Hospitalist Progress Note REPORT#:[id number] REPORT STATUS: Signed DATE:06/27/20 TIME:911 PATIENT: LINDA MENEZES UNIT #: [id number] ROOM/BED: [place] [id number] : 49 AGE: 70 SEX: F ATTEND: Murtaza Persaud MD ADM AUTHOR: Murtaza Persaud MD * ALL edits or amendments must be made on the electronic/computer document * Subjective Chief Complaint: Chest pain HPI: 70-year-old female with history of recent COVID 19 pneumonia, cardiomyopathy, hypertension, hyperlipidemia, hypothyroidism, diabetes mellitus type 2, who was transferred from [place] after COVID 19 pneumonia treatment [facility] due to debility and was sent to the emergency department for acute onset of chest pain in the middle of her chest, no radiation, sharp, intermittent, lasting minutes, no associated symptoms. In the emergency department, troponin was slightly elevated at the upper level of normal. EKG showed slight abnormalities that were reviewed by cardiology and determine likely related to her cardiomyopathy. Repeat troponin started to come down. Patient is free of chest pain. No need for emergent left heart catheterization at this time. CTA of the chest showed pulmonary embolus that can be determined whether acute or chronic. Patient was started on heparin. She is in the isolation unit due to COVID 19 positive. Past medical history: As stated in HPI Surgical history: Thyroidectomy, hysterectomy, cholecystectomy, bowel obstruction. Social history: Negative 3. Allergies: No known drug allergies. CODE STATUS: DNR discussed with patient and documentation available. Family history: Significant for heart disease and stroke in her father. Hospital course: 06/21/2020: Troponin flattened. Patient with intermittent chest pain. Elevated D dimer. Heparin changed for lovenox. 06/22/2020: Intermittent chest pain. H H stable. Nitro SL PRN added. ECHO pending. 06/23/2020: Patient is free of chest pain. H H has remained stable. ID consulted to assess COVID 19 active infection versus noncontagious carrier. 06/24/2020: H H stable after initiation of Eliquis. retirement facility order in place. Patient will be cleared by tomorrow. I discussed the case with ID and positive test for COVID is a sequela of recent cavity infection. Patient noncontagious. 06/25/2020: Patient being retested for COVID 19. [facility] needs a negative test. Otherwise, patient is free of chest pain. 06/26/2020: Patient has no shortness of breath or chest pain. Pending jail facility placement at this time. 06/27/2020: Patient has no complaints. No chest pain. No shortness of breath. Pending jail facility placement. Subjective: Patient seen and evaluated at bedside. She has no acute complaints. Per nurse, no other acute events. Review of Systems All systems rev neg: except as marked Objective General VS/I O: Vital Signs: Date Time Temp Pulse Resp B/P B/P Pulse O2 O2 Flow FiO2 Mean Ox Delivery Rate 06/27 817 36.6 83 16 164/80 108.2 98 Nasal cannula 06/27 0809 36.7 74 16 133/79 96.8 95 Room air 06/27 0737 93 Room air 06/27 0345 36.8 66 17 124/75 91.7 95 06/27 0028 36.7 69 17 117/69 85.4 97 06/26 2300 66 15 123/62 88 93 06/26 2202 96 Room air 0 21 06/26 2200 66 23 119/60 85 94 06/26 2128 96 Room air 0 21 06/26 2100 69 12 129/67 92 94 06/26 2001 36.6 Nasal 2 cannula 06/26 2000 71 15 127/69 93 96 06/26 1900 72 13 115/61 83 95 06/26 1601 77 27 142/73 95 97 06/26 1548 36.7 06/26 1400 79 13 114/57 80 95 06/26 1200 77 16 132/68 92 95 06/26 1137 36.7 06/26 1100 77 14 127/61 88 94 06/26 1000 77 14 123/58 83 92 06/26 0948 80 14 114/57 80 92 06/26 0947 79 14 109/56 79 93 06/26 0946 79 18 104/55 75 92 06/26 0945 78 15 106/53 76 91 06/26 0944 79 13 117/54 78 92 PATIENT WEIGHT: Weight (lb): Weight (oz): Weight (kg): 80.100 Medications: Active Meds + DC'd Last 24 Hrs Prednisone 10 MG DAILY PO Apixaban 5 MG Q12HR PO Aspirin 81 MG DAILY PO Isosorbide Mononitrate 60 MG BID PO Nitroglycerin 0.4 MG Q5M PRN PRN SL Carvedilol 3.125 MG Q12HR PO Atorvastatin Calcium 20 MG BEDTIME PO Insulin Human Lispro S/SCALE AC HS SUBQ Insulin Glargine 10 UNIT DAILY SUBQ Albumin Human 3 ML ONCE PRN IV Ascorbic Acid 500 MG DAILY PO Duloxetine HCl 20 MG DAILY PO Furosemide 20 MG DAILY PO Levothyroxine Sodium 125 MCG DAILY@0630 PO Spironolactone 25 MG DAILY PO Budesonide 0.5 MG RTQ12H NEB Zinc Sulfate 220 MG TID PO Famotidine 20 MG BID AC PO Cholecalciferol 2,000 INTL.UNITS DAILY PO (CKD) Al Hydrox/Mg Hydrox/Simethicone 30 ML Q4H PRN PRN PO Albuterol Sulfate 2 PUFF RTQ4H PRN PRN INH Benzonatate 100 MG Q6H PRN PRN PO Bisacodyl 10 MG ASDIR PRN RECTAL Dextrose/Water 50 ML ASDIR PRN IV Docusate Sodium 100 MG BID PRN PRN PO Hydralazine HCl 10 MG Q4H PRN PRN IV Hydrocodone Bitart/Acetaminophen 1 TAB Q6H PRN PRN PO Labetalol HCl 10 MG Q4H PRN PRN IV Ondansetron HCl 4 MG Q4H PRN PRN IV Trazodone HCl 50 MG BEDTIME PRN PRN PO Physical Exam General appearance: chronically ill appearing, frail, awake Head/Eyes: atraumatic, EOMI ENT: moist mucosal membranes, normal dentition Neck: full range of motion, non-tender Cardiovascular: normal capillary refill, normal heart sounds Respiratory: aerating well, clear to auscultation Abdomen: non-tender, normal bowel sounds Extremities: edema, moves all, normal capillary refill Musculoskeletal: no CVA tenderness, no midline vertebral tend Neuro/HOME HEALTH CARE CASE MANAGER: alert, oriented X 3, CNII-XII intact Skin: abnormal color, dry Results Findings/Data: Laboratory Tests 06/27 06/26 06/26 06/26 0808 2040 1538 1134 Chemistry POC Glucose (70 - 110 mg/dL) 193 H 161 H 302 H 330 H Diagnosis, Assessment Plan Orders: Procedure Date/time Status NEB TREATMENT SUBSQ 06/27 2017 Active Consultants: cardiology Code status: do not resuscitate Free Text DxA P Notes Free text DxA P notes: Assessment: Acute atypical chest pain Pulmonary embolus. Chronic versus acute. COVID positive Corticosteroid-induced leukocytosis Cardiomyopathy Essential hypertension Elevated troponin Hyperlipidemia Hypothyroidism Diabetes mellitus type 2 Plan: Telemetry Continue current care Inpatient Telemetry Eliquis Cardiology follows Nitro SL PRN Blood pressure control Droplet isolation Repeat COVID 19 test positive. Carrier. Noncontagious Continue Statin Sliding scale insulin with titration CODE STATUS DNR Guarded prognosis CM consult for SNF evaluation. Patient agreeable. Pending approval ID follows. at 1030 RPT #: [id number] END OF REPORT [facility] 2020-06-26 13:25:00 [facility] ([facility]) Infectious Dis. Progress Note REPORT#:[id number] REPORT STATUS: Signed DATE:06/26/20 TIME:1325 PATIENT: LINDA MENEZES UNIT #: [id number] ROOM/BED: [place] [address] : 49 AGE: 70 SEX: F ATTEND: Murtaza Persaud MD ADM AUTHOR: Tommy Loco MD * ALL edits or amendments must be made on the electronic/computer document * Subjective Chief Complaint: F/u covid HPI: Respiratory status stable, she remains on oxygen. Review of Systems Constitutional: Denies: chills, fever. Objective General VS/I O: Last Documented: Result Date Time Pulse Ox 95 06/26 1200 B/P 132/68 06/26 1200 B/P Mean 92 06/26 1200 Pulse 77 06/26 1200 Resp 16 06/26 1200 Temp 36.7 06/26 1137 O2 Delivery Nasal cannula 06/26 0700 O2 Flow Rate 2 06/26 0700 FiO2 21 06/25 1959 Vital Signs Date Temp Pulse Resp B/P B/P Mean Pulse Ox FiO2 06/25-06/26 36.5-36.9 67-83 11-30 104-132/53-71 75-93 91-96 21 24 hour I O ending at 0700: 06/26 0700 06/25 1900 Intake Total 700 Output Total Balance 700 Intake, Oral 700 Number 6 Incontinent Voids Number Voids 6 3 PATIENT WEIGHT: Weight (lb): Weight (oz): Weight (kg): 80.100 Physical Exam General appearance: alert, awake Head/Eyes: atraumatic Cardiovascular: regular rate rhythm Respiratory: on oxygen, symmetric expansion, no distress Abdomen: no distention Extremities: no clubbing, no cyanosis Neuro/HOME HEALTH CARE CASE MANAGER: alert, normal speech Diagnosis, Assessment Plan Free Text A P: Labs: WBC normal Creatinine normal Covid SHONA pos Imaging: CTA GGO b/l, old PE TTE reviewed Assessment: 1. Recent covid-19 pneumonia. Current findings are likely sequela from recent infection. 2. Positive covid SHONA does not indicate active disease. 3. Pulmonary embolism, likely old. 4. Chronic systolic heart failure. 5. Type 2 diabetes with hyperglycemia. Plan: 1. No need to treat with remdesivir. 2. Steroids per primary team. 3. Observe closely without antibiotics. Start broad-spectrum antibiotics if she decompensates. 4. Monitor CBC and CMP. 5. No need of respiratory isolation. 6. Disposition pending. at 1840 [facility] #: [id number] END OF REPORT [facility] 2020-06-26 09:17:00 [facility] ([facility]) Hospitalist Progress Note REPORT#:[id number] REPORT STATUS: Signed DATE:06/26/20 TIME:916 PATIENT: LINDA MENEZES UNIT #: [id number] ROOM/BED: [place] [address] : 49 AGE: 70 SEX: F ATTEND: Murtaza Persaud MD ADM AUTHOR: Murtaza Persaud MD * ALL edits or amendments must be made on the electronic/computer document * Subjective Chief Complaint: Chest pain HPI: 70-year-old female with history of recent COVID 19 pneumonia, cardiomyopathy, hypertension, hyperlipidemia, hypothyroidism, diabetes mellitus type 2, who [facility] [place] [facility] and was sent to the emergency department for acute onset of chest pain in the middle of her chest, no radiation, sharp, intermittent, lasting minutes, no associated symptoms. In the emergency department, troponin was slightly elevated at the upper level of normal. EKG showed slight abnormalities that were reviewed by cardiology and determine likely related to her cardiomyopathy. Repeat troponin started to come down. Patient is free of chest pain. No need for emergent left heart catheterization at this time. CTA of the chest showed pulmonary embolus that can be determined whether acute or chronic. Patient was started on heparin. She is in the isolation unit due to COVID 19 positive. Past medical history: As stated in HPI Surgical history: Thyroidectomy, hysterectomy, cholecystectomy, bowel obstruction. Social history: Negative 3. Allergies: No known drug allergies. CODE STATUS: DNR discussed with patient and documentation available. Family history: Significant for heart disease and stroke in her father. Hospital course: 06/21/2020: Troponin flattened. Patient with intermittent chest pain. Elevated D dimer. Heparin changed for lovenox. 06/22/2020: Intermittent chest pain. H H stable. Nitro SL PRN added. ECHO pending. 06/23/2020: Patient is free of chest pain. H H has remained stable. ID consulted to assess COVID 19 active infection versus noncontagious carrier. 06/24/2020: H H stable after initiation of Eliquis. retirement facility order in place. Patient will be cleared by tomorrow. I discussed the case with ID and positive test for COVID is a sequela of recent cavity infection. Patient noncontagious. 06/25/2020: Patient being retested for COVID 19. [facility] needs a negative test. Otherwise, patient is free of chest pain. 06/26/2020: Patient has no shortness of breath or chest pain. Pending jail facility placement at this time. Subjective: Patient seen and evaluated at bedside. She has no acute complaints. Per nurse, no other acute events except for above. Review of Systems All systems rev neg: except as marked Objective General VS/I O: Vital Signs: Date Time Temp Pulse Resp B/P B/P Pulse O2 O2 Flow FiO2 Mean Ox Delivery Rate 06/26 0801 76 29 126/71 93 94 06/26 0752 36.5 06/26 0700 Nasal 2 cannula 06/26 0700 Nasal 2 cannula 06/26 0700 69 11 116/56 81 93 06/26 0400 73 14 123/61 84 94 06/26 0359 36.8 06/26 0300 74 11 132/64 90 92 06/26 0200 69 14 124/63 86 93 06/26 0100 67 12 117/59 82 92 06/26 0000 69 12 107/56 77 92 06/25 2348 36.9 06/25 2300 68 17 112/59 81 94 06/25 2200 73 16 124/64 89 95 06/25 2113 Room air 2 06/25 2100 74 11 111/56 79 93 06/25 2000 36.8 06/25 2000 78 18 124/60 84 94 06/25 1959 96 Room air 21 06/25 1900 80 18 107/57 76 95 06/25 1800 81 16 123/62 83 96 06/25 1700 75 30 125/62 88 95 06/25 1600 76 15 111/56 78 95 06/25 1555 36.7 06/25 1500 Room air 06/25 1500 82 24 118/63 85 96 06/25 1400 83 14 112/55 78 93 06/25 1300 81 13 126/56 81 94 06/25 1200 72 15 114/64 84 94 06/25 1150 36.7 06/25 1104 78 31 93 06/25 1100 Nasal 2 cannula 06/25 1100 81 33 113/58 80 94 06/25 1000 79 48 104/54 76 93 24 hour I O ending at 0700: 06/26 0700 06/25 1900 Intake Total 700 Output Total Balance 700 Intake, Oral 700 Number 6 Incontinent Voids Number Voids 6 3 PATIENT WEIGHT: Weight (lb): Weight (oz): Weight (kg): 80.100 Medications: Active Meds + DC'd Last 24 Hrs Prednisone 10 MG DAILY PO Apixaban 5 MG Q12HR PO Aspirin 81 MG DAILY PO Isosorbide Mononitrate 60 MG BID PO Nitroglycerin 0.4 MG Q5M PRN PRN SL Carvedilol 3.125 MG Q12HR PO Atorvastatin Calcium 20 MG BEDTIME PO Insulin Human Lispro S/SCALE AC HS SUBQ Insulin Glargine 10 UNIT DAILY SUBQ Albumin Human 3 ML ONCE PRN IV Ascorbic Acid 500 MG DAILY PO Duloxetine HCl 20 MG DAILY PO Furosemide 20 MG DAILY PO Levothyroxine Sodium 125 MCG DAILY@0630 PO Spironolactone 25 MG DAILY PO Budesonide 0.5 MG RTQ12H NEB Zinc Sulfate 220 MG TID PO Famotidine 20 MG BID AC PO Cholecalciferol 2,000 INTL.UNITS DAILY PO (CKD) Al Hydrox/Mg Hydrox/Simethicone 30 ML Q4H PRN PRN PO Albuterol Sulfate 2 PUFF RTQ4H PRN PRN INH Benzonatate 100 MG Q6H PRN PRN PO Bisacodyl 10 MG ASDIR PRN RECTAL Dextrose/Water 50 ML ASDIR PRN IV Docusate Sodium 100 MG BID PRN PRN PO Hydralazine HCl 10 MG Q4H PRN PRN IV Hydrocodone Bitart/Acetaminophen 1 TAB Q6H PRN PRN PO Labetalol HCl 10 MG Q4H PRN PRN IV Ondansetron HCl 4 MG Q4H PRN PRN IV Trazodone HCl 50 MG BEDTIME PRN PRN PO Physical Exam General appearance: frail, alert, awake, oriented Head/Eyes: atraumatic, EOMI ENT: moist mucosal membranes, normal dentition Neck: full range of motion, non-tender Cardiovascular: normal capillary refill, normal heart sounds Respiratory: aerating well, clear to auscultation Abdomen: non-tender, normal bowel sounds Extremities: edema, moves all, normal capillary refill Musculoskeletal: no CVA tenderness, no midline vertebral tend Neuro/HOME HEALTH CARE CASE MANAGER: alert, oriented X 3, CNII-XII intact Skin: abnormal color, dry Results Findings/Data: Laboratory Tests 06/26 06/26 06/25 06/25 0749 0545 1921 1552 Chemistry Sodium (134 - 147 mmol/L) 138 Potassium (3.4 - 5.0 mmol/L) 4.1 Chloride (100 - 108 mmol/L) 104 Carbon Dioxide (21 - 32 mmol/L) 30 Anion Gap (4.0 - 15.0 GAP calc) 4.0 BUN (7 - 18 MG/DL) 40 H Creatinine (0.6 - 1.0 MG/DL) 0.9 Glomerular Filtr Rate (>60 estGFR) >=60 max estimate Glucose (70 - 110 MG/DL) 141 H POC Glucose (70 - 110 mg/dL) 144 H 175 H 304 H Calcium (8.5 - 10.1 MG/DL) 8.7 Laboratory Tests 06/26 0545 Hematology WBC (3.5 - 11.0 K/mm3) 9.5 RBC (4.70 - 6.10 M/mm3) 2.74 L Hgb (10.4 - 14.9 G/DL) 7.5 L Hct (31.5 - 44.1 %) 24.4 L MCV (84.5 - 98.6 Fl) 89.1 MCH (27.0 - 34.2 pg) 27.4 MCHC (31.5 - 34.0 G/DL) 30.7 L RDW (11.5 - 14.5 SD) 18.2 H Plt Count (150 - 450 K/mm3) 340 MPV (7.0 - 10.5 fL) 10.70 H Neut % (Auto) (40 - 76 %) 73.9 Lymph % (Auto) (20.5 - 51.1 %) 13.5 L [place] % (Auto) (1.7 - 9.3 %) 11.7 H Eos % (Auto) (0.0 - 6.0 %) 0.3 Baso % (Auto) (0.0 - 2.0 %) 0.0 Neut # (Auto) (1.8 - 7.6 K/mm3) 7.0 Lymph # (Auto) (0.6 - 3.2 K/mm3) 1.3 [place] # (Auto) (0.3 - 1.1 K/mm3) 1.1 Eos # (Auto) (0.0 - 0.4 K/mm3) 0.0 Baso # (Auto) (0.0 - 0.1 K/mm3) 0.0 Abs Immat Gran (auto) (0.00 - 0.03 x10 3/uL) 0.06 H Add Manual Diff (CRITERIA DIFF/SCN) NO Immature Gran % (0.0 - 5.0 %) 0.6 Nucleated RBC % (0.0 - 1.0 /100WBC%) 0.0 Laboratory Tests 06/25 1110 Serology SARS CoV-2 RNA Rapid SHONA (Negative) Positive Diagnosis, Assessment Plan Consultants: cardiology Code status: do not resuscitate Plan discussed with: patient, nurse Free Text DxA P Notes Free text DxA P notes: Assessment: Acute atypical chest pain Pulmonary embolus. Chronic versus acute. COVID positive Corticosteroid-induced leukocytosis Cardiomyopathy Essential hypertension Elevated troponin Hyperlipidemia Hypothyroidism Diabetes mellitus type 2 Plan: Intermediate CARE unit Repeat COVID test positive Inpatient Telemetry Eliquis Cardiology follows Nitro SL PRN Blood pressure control Droplet isolation Repeat COVID 19 test positive. Carrier. Noncontagious Continue Statin Sliding scale insulin with titration CODE STATUS DNR Guarded prognosis CM consult for SNF evaluation. Patient agreeable. Pending decision ID follows. at 2031 RPT #: [id number] END OF REPORT [facility] 2020-06-25 14:10:00 [facility] ([facility]) Infectious Dis. Progress Note REPORT#:[id number] REPORT STATUS: Signed DATE:06/25/20 TIME:1410 PATIENT: LINDA MENEZES UNIT #: [id number] ROOM/BED: [place] [address] : 49 AGE: 70 SEX: F ATTEND: Murtaza Persaud MD ADM AUTHOR: Tommy Loco MD * ALL edits or amendments must be made on the electronic/computer document * Subjective Chief Complaint: F/u covid HPI: Respiratory status remains stable. She is stable off antibiotics. Review of Systems Constitutional: Reports: other (No fever reported). Objective General VS/I O: Last Documented: Result Date Time Pulse Ox 94 06/25 1200 B/P 114/64 06/25 1200 B/P Mean 84 06/25 1200 Pulse 72 06/25 1200 Resp 15 06/25 1200 Temp 36.7 06/25 1150 O2 Delivery Nasal cannula 06/25 1100 O2 Flow Rate 2 06/25 1100 FiO2 28 06/25 0856 Vital Signs Date Temp Pulse Resp B/P B/P Mean Pulse Ox FiO2 06/24-06/25 36.5-36.8 65-81 11-69 98-136/49-71 71-93 92-100 28 24 hour I O ending at 0700: 06/25 0700 06/24 1900 Intake Total 250 1200 Output Total Balance 250 1200 Intake, Oral 250 1200 Number 0 Bowel Movements Number 4 1 Incontinent Voids Number Voids 1 2 PATIENT WEIGHT: Weight (lb): Weight (oz): Weight (kg): 80.100 Physical Exam General appearance: awake Head/Eyes: atraumatic Cardiovascular: regular rate rhythm Respiratory: on oxygen, symmetric expansion, no distress Abdomen: no distention Extremities: no clubbing, no cyanosis Neuro/HOME HEALTH CARE CASE MANAGER: alert, normal speech Diagnosis, Assessment Plan Free Text A P: Labs: WBC slightly high Creatinine normal Covid SHONA pos Imaging: CTA GGO b/l, old PE TTE reviewed Assessment: 1. Recent covid-19 pneumonia. Current findings are likely sequela from recent infection. 2. Positive covid SHONA does not indicate active disease. 3. Pulmonary embolism, likely old. 4. Chronic systolic heart failure. 5. Type 2 diabetes with hyperglycemia. Plan: 1. No need to treat with remdesivir. 2. Steroids per primary team. 3. Observe closely without antibiotics. Start broad-spectrum antibiotics if she decompensates. 4. Monitor CBC and CMP. 5. No need of respiratory isolation. at 1956 RPT #: [id number] END OF REPORT [facility] 2020-06-25 12:36:00 [facility] ([facility]) Hospitalist Progress Note REPORT#:[id number] REPORT STATUS: Signed DATE:06/25/20 TIME:1236 PATIENT: LINDA MENEZES UNIT #: [id number] ROOM/BED: [place] [address] : 49 AGE: 70 SEX: F ATTEND: Murtaza Persaud MD ADM AUTHOR: Murtaza Persaud MD * ALL edits or amendments must be made on the electronic/computer document * Subjective Chief Complaint: Chest pain HPI: 70-year-old female with history of recent COVID 19 pneumonia, cardiomyopathy, hypertension, hyperlipidemia, hypothyroidism, diabetes mellitus type 2, who [facility] [place] [facility] and was sent to the emergency department for acute onset of chest pain in the middle of her chest, no radiation, sharp, intermittent, lasting minutes, no associated symptoms. In the emergency department, troponin was slightly elevated at the upper level of normal. EKG showed slight abnormalities that were reviewed by cardiology and determine likely related to her cardiomyopathy. Repeat troponin started to come down. Patient is free of chest pain. No need for emergent left heart catheterization at this time. CTA of the chest showed pulmonary embolus that can be determined whether acute or chronic. Patient was started on heparin. She is in the isolation unit due to COVID 19 positive. Past medical history: As stated in HPI Surgical history: Thyroidectomy, hysterectomy, cholecystectomy, bowel obstruction. Social history: Negative 3. Allergies: No known drug allergies. CODE STATUS: DNR discussed with patient and documentation available. Family history: Significant for heart disease and stroke in her father. Hospital course: 06/21/2020: Troponin flattened. Patient with intermittent chest pain. Elevated D dimer. Heparin changed for lovenox. 06/22/2020: Intermittent chest pain. H H stable. Nitro SL PRN added. ECHO pending. 06/23/2020: Patient is free of chest pain. H H has remained stable. ID consulted to assess COVID 19 active infection versus noncontagious carrier. 06/24/2020: H H stable after initiation of Eliquis. retirement facility order in place. Patient will be cleared by tomorrow. I discussed the case with ID and positive test for COVID is a sequela of recent cavity infection. Patient noncontagious. 06/25/2020: Patient being retested for COVID 19. [facility] needs a negative test. Otherwise, patient is free of chest pain. Subjective: Patient seen and evaluated at bedside. She has no acute complaints. Per nurse, no other acute events. Review of Systems All systems rev neg: except as marked Objective General VS/I O: Vital Signs: Date Time Temp Pulse Resp B/P B/P Pulse O2 O2 Flow FiO2 Mean Ox Delivery Rate 06/25 2000 36.8 06/25 2000 78 18 124/60 84 94 06/25 1959 96 Room air 21 06/25 1900 80 18 107/57 76 95 06/25 1800 81 16 123/62 83 96 06/25 1700 75 30 125/62 88 95 06/25 1600 76 15 111/56 78 95 06/25 1555 36.7 06/25 1500 Room air 06/25 1500 82 24 118/63 85 96 06/25 1400 83 14 112/55 78 93 06/25 1300 81 13 126/56 81 94 06/25 1200 72 15 114/64 84 94 06/25 1150 36.7 06/25 1104 78 31 93 06/25 1100 Nasal 2 cannula 06/25 1100 81 33 113/58 80 94 06/25 1000 79 48 104/54 76 93 06/25 0900 75 69 98/49 71 92 06/25 0856 99 2 28 06/25 0800 81 21 132/71 93 95 06/25 0751 69 12 117/60 83 98 06/25 0740 36.5 06/25 0700 Nasal 2 cannula 06/25 0700 Nasal 2 cannula 06/25 0658 68 18 99 06/25 0600 69 19 125/60 87 98 06/25 0500 67 20 121/62 87 98 06/25 0423 36.6 06/25 0400 65 13 122/64 88 100 06/25 0300 67 12 130/64 89 98 06/25 0200 68 11 124/64 88 99 06/25 0100 68 13 136/65 91 99 06/25 0000 68 11 114/60 81 99 06/24 2357 Nasal 2 28 cannula 06/24 2353 36.8 06/24 2300 73 15 122/64 86 100 06/24 2200 76 18 121/65 87 97 06/24 2100 75 11 120/62 85 100 06/24 2057 100 Nasal 2 28 cannula 24 hour I O ending at 0700: 06/25 0700 06/24 1900 Intake Total 250 1200 Output Total Balance 250 1200 Intake, Oral 250 1200 Number 0 Bowel Movements Number 4 1 Incontinent Voids Number Voids 1 2 PATIENT WEIGHT: Weight (lb): Weight (oz): Weight (kg): 80.100 Medications: Active Meds + DC'd Last 24 Hrs Morphine Sulfate 2 MG ONCE ONE IV (DC) Prednisone 10 MG DAILY PO Apixaban 5 MG Q12HR PO Aspirin 81 MG DAILY PO Isosorbide Mononitrate 60 MG BID PO Nitroglycerin 0.4 MG Q5M PRN PRN SL Carvedilol 3.125 MG Q12HR PO Atorvastatin Calcium 20 MG BEDTIME PO Insulin Human Lispro S/SCALE AC HS SUBQ Insulin Glargine 10 UNIT DAILY SUBQ Albumin Human 3 ML ONCE PRN IV Ascorbic Acid 500 MG DAILY PO Duloxetine HCl 20 MG DAILY PO Furosemide 20 MG DAILY PO Levothyroxine Sodium 125 MCG DAILY@0630 PO Spironolactone 25 MG DAILY PO Budesonide 0.5 MG RTQ12H NEB Zinc Sulfate 220 MG TID PO Famotidine 20 MG BID AC PO Cholecalciferol 2,000 INTL.UNITS DAILY PO (CKD) Al Hydrox/Mg Hydrox/Simethicone 30 ML Q4H PRN PRN PO Albuterol Sulfate 2 PUFF RTQ4H PRN PRN INH Benzonatate 100 MG Q6H PRN PRN PO Bisacodyl 10 MG ASDIR PRN RECTAL Dextrose/Water 50 ML ASDIR PRN IV Docusate Sodium 100 MG BID PRN PRN PO Hydralazine HCl 10 MG Q4H PRN PRN IV Hydrocodone Bitart/Acetaminophen 1 TAB Q6H PRN PRN PO Labetalol HCl 10 MG Q4H PRN PRN IV Ondansetron HCl 4 MG Q4H PRN PRN IV Trazodone HCl 50 MG BEDTIME PRN PRN PO Physical Exam General appearance: frail, alert, awake Head/Eyes: atraumatic, EOMI ENT: moist mucosal membranes, normal dentition Neck: full range of motion, non-tender Cardiovascular: normal capillary refill, normal heart sounds Respiratory: aerating well, clear to auscultation Abdomen: non-tender, normal bowel sounds Extremities: edema, moves all, normal capillary refill Musculoskeletal: no CVA tenderness, no midline vertebral tend Neuro/HOME HEALTH CARE CASE MANAGER: alert, oriented X 3, CNII-XII intact Skin: abnormal color, dry Results Findings/Data: Laboratory Tests 06/25 06/25 06/25 1921 1552 0510 Chemistry Sodium (134 - 147 mmol/L) 137 Potassium (3.4 - 5.0 mmol/L) 5.2 H Chloride (100 - 108 mmol/L) 102 Carbon Dioxide (21 - 32 mmol/L) 33 H Anion Gap (4.0 - 15.0 GAP calc) 2.0 L BUN (7 - 18 MG/DL) 43 H Creatinine (0.6 - 1.0 MG/DL) 1.1 H Glomerular Filtr Rate (>60 estGFR) 52 L Glucose (70 - 110 MG/DL) 214 H POC Glucose (70 - 110 mg/dL) 175 H 304 H Calcium (8.5 - 10.1 MG/DL) 8.8 Laboratory Tests 06/25 0510 Hematology WBC (3.5 - 11.0 K/mm3) 11.4 H RBC (4.70 - 6.10 M/mm3) 2.84 L Hgb (10.4 - 14.9 G/DL) 7.9 L Hct (31.5 - 44.1 %) 26.1 L MCV (84.5 - 98.6 Fl) 91.9 MCH (27.0 - 34.2 pg) 27.8 MCHC (31.5 - 34.0 G/DL) 30.3 L RDW (11.5 - 14.5 SD) 17.9 H Plt Count (150 - 450 K/mm3) 346 MPV (7.0 - 10.5 fL) 10.90 H Neut % (Auto) (40 - 76 %) 74.9 Lymph % (Auto) (20.5 - 51.1 %) 11.8 L [place] % (Auto) (1.7 - 9.3 %) 12.2 H Eos % (Auto) (0.0 - 6.0 %) 0.3 Baso % (Auto) (0.0 - 2.0 %) 0.1 Neut # (Auto) (1.8 - 7.6 K/mm3) 8.5 H Lymph # (Auto) (0.6 - 3.2 K/mm3) 1.3 [place] # (Auto) (0.3 - 1.1 K/mm3) 1.4 H Eos # (Auto) (0.0 - 0.4 K/mm3) 0.0 Baso # (Auto) (0.0 - 0.1 K/mm3) 0.0 Abs Immat Gran (auto) (0.00 - 0.03 x10 3/uL) 0.08 H Add Manual Diff (CRITERIA DIFF/SCN) NO Immature Gran % (0.0 - 5.0 %) 0.7 Nucleated RBC % (0.0 - 1.0 /100WBC%) 0.0 Laboratory Tests 06/25 1110 Serology SARS CoV-2 RNA Rapid SHONA (Negative) Positive Diagnosis, Assessment Plan Orders: Procedure Date/time Status NEB TREATMENT SUBSQ 06/25 1959 Active Coronavirus 2019 nCoV Bedside 06/25 1110 Complete COVID-19 Testing 06/25 1045 Active Consultants: cardiology Code status: do not resuscitate Plan discussed with: patient, nurse Free Text DxA P Notes Free text DxA P notes: Assessment: Acute atypical chest pain Pulmonary embolus. Chronic versus acute. COVID positive Corticosteroid-induced leukocytosis Cardiomyopathy Essential hypertension Elevated troponin Hyperlipidemia Hypothyroidism Diabetes mellitus type 2 Plan: Intermediate CARE unit Repeat COVID test Inpatient Telemetry Eliquis Cardiology follows Nitro SL PRN Blood pressure control Droplet isolation Repeat COVID 19 test positive. Carrier. Noncontagious Continue Statin Sliding scale insulin with titration CODE STATUS DNR Guarded prognosis CM consult for SNF evaluation. Patient agreeable ID follows. at 2051 RPT #: [id number] END OF REPORT [facility] 2020-06-24 13:16:00 [facility] ([facility]) Infectious Dis. Progress Note REPORT#:[id number] REPORT STATUS: Signed DATE:06/24/20 TIME:1316 PATIENT: LINDA MENEZES UNIT #: [id number] ROOM/BED: [place] [address] : 49 AGE: 70 SEX: F ATTEND: Murtaza Persaud MD ADM AUTHOR: Tommy Loco MD * ALL edits or amendments must be made on the electronic/computer document * Subjective Chief Complaint: F/u covid HPI: Respiratory status stable, she is on 2L O2. Review of Systems Constitutional: Reports: other (No fever reported). Objective General VS/I O: Last Documented: Result Date Time Temp 36.5 06/24 1158 FiO2 28 06/24 0900 O2 Delivery Nasal cannula 06/24 0900 O2 Flow Rate 2 06/24 0900 Pulse Ox 99 06/24 0811 B/P 145/71 06/24 0700 B/P Mean 100 06/24 0700 Pulse 78 06/24 0700 Resp 11 06/24 0700 Vital Signs Date Temp Pulse Resp B/P B/P Mean Pulse Ox FiO2 06/23-06/24 36.4-36.7 69-83 10-23 108-145/59-83 79-107 98-100 28 24 hour I O ending at 0700: 06/24 0700 06/23 1900 Intake Total 1000 Output Total 1200 Balance -200 Intake, Oral 1000 Number 1 1 Bowel Movements Number 1 4 Incontinent Voids Output, Urine 1200 PATIENT WEIGHT: Weight (lb): Weight (oz): Weight (kg): 80.100 Physical Exam General appearance: awake Head/Eyes: atraumatic Cardiovascular: regular rate rhythm Respiratory: on oxygen, symmetric expansion, no distress Abdomen: no distention Extremities: no clubbing, no cyanosis Neuro/HOME HEALTH CARE CASE MANAGER: alert, normal speech Diagnosis, Assessment Plan Free Text A P: Labs: WBC decreasing Creatinine normal Covid SHONA pos Imaging: CTA GGO b/l, old PE TTE reviewed Assessment: 1. Recent covid-19 pneumonia. Current findings are likely sequela from recent infection. 2. Positive covid SHONA does not indicate active disease. 3. Pulmonary embolism, likely old. 4. Chronic systolic heart failure. 5. Type 2 diabetes with hyperglycemia. Plan: 1. No need to treat with remdesivir. 2. Steroids per primary team. 3. Observe closely without antibiotics. Start broad-spectrum antibiotics if she decompensates. 4. Monitor CBC and CMP. at 1931 RPT #: [id number] END OF REPORT [facility] 2020-06-24 08:57:00 [facility] ([facility]) Hospitalist Progress Note REPORT#:[id number] REPORT STATUS: Signed DATE:06/24/20 TIME:08 PATIENT: LINDA MENEZES UNIT #: [id number] ROOM/BED: [place] [address] : 49 AGE: 70 SEX: F ATTEND: Murtaza Persaud MD ADM AUTHOR: Murtaza Persaud MD * ALL edits or amendments must be made on the electronic/computer document * Subjective Chief Complaint: Chest pain HPI: 70-year-old female with history of recent COVID 19 pneumonia, cardiomyopathy, hypertension, hyperlipidemia, hypothyroidism, diabetes mellitus type 2, who [facility] [place] [facility] and was sent to the emergency department for acute onset of chest pain in the middle of her chest, no radiation, sharp, intermittent, lasting minutes, no associated symptoms. In the emergency department, troponin was slightly elevated at the upper level of normal. EKG showed slight abnormalities that were reviewed by cardiology and determine likely related to her cardiomyopathy. Repeat troponin started to come down. Patient is free of chest pain. No need for emergent left heart catheterization at this time. CTA of the chest showed pulmonary embolus that can be determined whether acute or chronic. Patient was started on heparin. She is in the isolation unit due to COVID 19 positive. Past medical history: As stated in HPI Surgical history: Thyroidectomy, hysterectomy, cholecystectomy, bowel obstruction. Social history: Negative 3. Allergies: No known drug allergies. CODE STATUS: DNR discussed with patient and documentation available. Family history: Significant for heart disease and stroke in her father. Hospital course: 06/21/2020: Troponin flattened. Patient with intermittent chest pain. Elevated D dimer. Heparin changed for lovenox. 06/22/2020: Intermittent chest pain. H H stable. Nitro SL PRN added. ECHO pending. 06/23/2020: Patient is free of chest pain. H H has remained stable. ID consulted to assess COVID 19 active infection versus noncontagious carrier. 06/24/2020: H H stable after initiation of Eliquis. retirement facility order in place. Patient will be cleared by tomorrow. I discussed the case with ID and positive test for COVID is a sequela of recent cavity infection. Patient noncontagious. Subjective: Patient seen and evaluated at bedside. She has no acute complaints. Per nurse, events of the above. Review of Systems All systems rev neg: except as marked Objective General VS/I O: Vital Signs: Date Time Temp Pulse Resp B/P B/P Pulse O2 O2 Flow FiO2 Mean Ox Delivery Rate 06/24 0815 36.7 06/24 0811 99 Nasal 2 28 cannula 06/24 0700 78 11 145/71 100 100 06/24 0600 71 14 129/65 91 98 06/24 0500 69 10 122/59 83 99 06/24 0400 36.4 06/24 0400 77 13 142/83 107 100 06/24 0300 70 11 125/62 86 100 06/24 0200 74 12 136/71 95 99 06/24 0100 69 11 122/65 88 99 06/24 0000 36.5 06/24 0000 71 16 124/69 92 99 06/23 2300 70 14 128/70 94 99 06/23 2200 73 15 124/64 88 99 06/23 2100 72 12 108/59 79 99 06/234 99 Nasal 2 28 cannula 06/23 2000 Nasal 2 cannula 06/23 2000 Nasal 3 cannula 06/23 2000 75 12 112/59 79 100 06/23 1900 80 16 121/66 88 98 06/23 1800 80 18 115/64 84 100 06/23 1759 80 15 100 06/23 1700 83 19 123/70 91 99 06/23 1600 36.6 06/23 1600 82 21 117/64 85 100 06/23 1500 83 16 118/61 82 99 06/23 1400 79 23 117/64 84 99 06/23 1300 82 19 111/57 77 99 06/23 1229 36.6 06/23 1200 84 24 120/76 91 99 06/23 1130 36.8 06/23 1130 83 15 116/58 82 99 06/23 1000 80 12 132/65 92 96 06/23 0930 83 06/23 0900 Nasal 3 32 cannula 24 hour I O ending at 0700: 06/24 0700 06/23 1900 Intake Total 1000 Output Total 1200 Balance -200 Intake, Oral 1000 Number 1 1 Bowel Movements Number 1 4 Incontinent Voids Output, Urine 1200 PATIENT WEIGHT: Weight (lb): Weight (oz): Weight (kg): 80.100 Medications: Active Meds + DC'd Last 24 Hrs Prednisone 10 MG DAILY PO (UNV) Apixaban 5 MG Q12HR PO Aspirin 81 MG DAILY PO Isosorbide Mononitrate 60 MG BID PO Nitroglycerin 0.4 MG Q5M PRN PRN SL Carvedilol 3.125 MG Q12HR PO Atorvastatin Calcium 20 MG BEDTIME PO Enoxaparin Sodium 80 MG Q12HR SUBQ (DC) Insulin Human Lispro S/SCALE AC HS SUBQ Insulin Glargine 10 UNIT DAILY SUBQ Albumin Human 3 ML ONCE PRN IV Ascorbic Acid 500 MG DAILY PO Duloxetine HCl 20 MG DAILY PO Furosemide 20 MG DAILY PO Levothyroxine Sodium 125 MCG DAILY@0630 PO Prednisone 20 MG DAILY PO (DCr) Spironolactone 25 MG DAILY PO Budesonide 0.5 MG RTQ12H NEB Zinc Sulfate 220 MG TID PO Famotidine 20 MG BID AC PO Cholecalciferol 2,000 INTL.UNITS DAILY PO (CKD) Al Hydrox/Mg Hydrox/Simethicone 30 ML Q4H PRN PRN PO Albuterol Sulfate 2 PUFF RTQ4H PRN PRN INH Benzonatate 100 MG Q6H PRN PRN PO Bisacodyl 10 MG ASDIR PRN RECTAL Dextrose/Water 50 ML ASDIR PRN IV Docusate Sodium 100 MG BID PRN PRN PO Hydralazine HCl 10 MG Q4H PRN PRN IV Hydrocodone Bitart/Acetaminophen 1 TAB Q6H PRN PRN PO Labetalol HCl 10 MG Q4H PRN PRN IV Ondansetron HCl 4 MG Q4H PRN PRN IV Trazodone HCl 50 MG BEDTIME PRN PRN PO Physical Exam General appearance: frail, alert, awake Head/Eyes: atraumatic, EOMI ENT: moist mucosal membranes, normal dentition Neck: full range of motion, non-tender Cardiovascular: normal capillary refill, normal heart sounds Respiratory: aerating well, clear to auscultation Abdomen: non-tender, normal bowel sounds Extremities: edema, moves all, normal capillary refill Musculoskeletal: no CVA tenderness, no midline vertebral tend Neuro/HOME HEALTH CARE CASE MANAGER: alert, oriented X 3, CNII-XII intact Skin: abnormal color, dry Results Findings/Data: Laboratory Tests 06/24 06/24 06/23 06/23 06/23 0816 0630 2052 1603 1229 Chemistry Sodium (134 - 147 mmol/L) 138 Potassium (3.4 - 5.0 mmol/L) 4.0 Chloride (100 - 108 mmol/L) 100 Carbon Dioxide (21 - 32 mmol/L) 33 H Anion Gap (4.0 - 15.0 GAP calc) 5.0 BUN (7 - 18 MG/DL) 38 H Creatinine (0.6 - 1.0 MG/DL) 1.0 Glomerular Filtr Rate (>60 estGFR) 58 L Glucose (70 - 110 MG/DL) 109 POC Glucose (70 - 110 mg/dL) 114 H 112 H 240 H 266 H Calcium (8.5 - 10.1 MG/DL) 8.6 Laboratory Tests 06/24 0630 Hematology WBC (3.5 - 11.0 K/mm3) 11.7 H RBC (4.70 - 6.10 M/mm3) 2.78 L Hgb (10.4 - 14.9 G/DL) 7.7 L Hct (31.5 - 44.1 %) 24.9 L MCV (84.5 - 98.6 Fl) 89.6 MCH (27.0 - 34.2 pg) 27.7 MCHC (31.5 - 34.0 G/DL) 30.9 L RDW (11.5 - 14.5 SD) 17.5 H Plt Count (150 - 450 K/mm3) 348 MPV (7.0 - 10.5 fL) 10.80 H Neut % (Auto) (40 - 76 %) 76.9 H Lymph % (Auto) (20.5 - 51.1 %) 11.1 L [place] % (Auto) (1.7 - 9.3 %) 11.1 H Eos % (Auto) (0.0 - 6.0 %) 0.2 Baso % (Auto) (0.0 - 2.0 %) 0.0 Neut # (Auto) (1.8 - 7.6 K/mm3) 9.0 H Lymph # (Auto) (0.6 - 3.2 K/mm3) 1.3 [place] # (Auto) (0.3 - 1.1 K/mm3) 1.3 H Eos # (Auto) (0.0 - 0.4 K/mm3) 0.0 Baso # (Auto) (0.0 - 0.1 K/mm3) 0.0 Abs Immat Gran (auto) (0.00 - 0.03 x10 3/uL) 0.08 H Add Manual Diff (CRITERIA DIFF/SCN) NO Immature Gran % (0.0 - 5.0 %) 0.7 Nucleated RBC % (0.0 - 1.0 /100WBC%) 0.0 Diagnosis, Assessment Plan Orders: Procedure Date/time Status OXYGEN PER HOUR 06/24 813 Active NEB TREATMENT SUBSQ 06/24 813 Active Consultants: cardiology Code status: do not resuscitate Plan discussed with: patient, consultants, nurse Free Text DxA P Notes Free text DxA P notes: Assessment: Acute atypical chest pain Pulmonary embolus. Chronic versus acute. COVID positive Corticosteroid-induced leukocytosis Cardiomyopathy Essential hypertension Elevated troponin Hyperlipidemia Hypothyroidism Diabetes mellitus type 2 Plan: Intermediate CARE unit Inpatient Telemetry Eliquis Cardiology follows Nitro SL PRN Blood pressure control Droplet isolation Repeat COVID 19 test positive. Carrier. Noncontagious Continue Statin Sliding scale insulin with titration CODE STATUS DNR Guarded prognosis CM consult for SNF evaluation. Patient agreeable ID follows. at 1502 RPT #: [id number] END OF REPORT [facility] 2020-06-23 19:13:00 [facility] ([facility]) Cardiology Progress Note REPORT#:[id number] REPORT STATUS: Signed DATE:06/23/20 TIME:1912 PATIENT: LINDA MENEZES UNIT #: [id number] ROOM/BED: [place] [address] : 49 AGE: 70 SEX: F ATTEND: Murtaza Persaud MD ADM AUTHOR: Ced Watkins MD * ALL edits or amendments must be made on the electronic/computer document * Subjective Chief Complaint: Chest pain Patient reports: No: complaints. Nursing reports: No: complaints. Objective General VS/I O: 24 hour I O ending at 0700: 06/23 0700 06/22 1900 Intake Total 1400.00 Output Total 1500 Balance -100.00 Intake, IV 50.00 Intake, Oral 1350 Number 3 Incontinent Voids Output, Urine 1500 Vital Signs: Date Time Temp Pulse Resp B/P B/P Pulse O2 O2 Flow FiO2 Mean Ox Delivery Rate 06/23 1900 80 16 121/66 88 98 06/23 1800 80 18 115/64 84 100 06/23 1759 80 15 100 06/23 1700 83 19 123/70 91 99 06/23 1600 97.9 06/23 1600 82 21 117/64 85 100 06/23 1500 83 16 118/61 82 99 06/23 1400 79 23 117/64 84 99 06/23 1300 82 19 111/57 77 99 06/23 1229 97.9 06/23 1200 84 24 120/76 91 99 06/23 1130 98.2 06/23 1130 83 15 116/58 82 99 06/23 1000 80 12 132/65 92 96 06/23 0930 83 06/23 0900 Nasal 3 32 cannula 06/23 0831 84 25 156/77 107 95 06/23 0800 97.2 06/23 0800 83 27 125/65 89 100 06/23 0735 100 Nasal 3 32 cannula 06/23 0730 73 12 135/67 92 100 14 0700 71 16 122/62 86 100 14 0600 70 9 122/60 84 99 14 0530 70 10 126/68 89 98 /14 0500 69 12 128/72 91 97 /14 0430 69 18 118/61 84 98 /14 0400 70 15 132/67 94 100 /14 0330 68 10 131/66 91 100 14 0329 98.2 06/23 0300 69 10 140/73 97 98 /14 0200 67 11 135/72 95 99 14 0130 66 14 138/66 91 99 /14 0100 65 8 105/61 79 100 12/14 0030 66 14 118/61 85 99 06/23 0000 64 9 115/69 87 100 06/22 2355 97.9 06/22 2330 66 11 113/65 84 100 06/22 2300 67 14 111/69 85 99 06/220 68 12 119/65 86 99 06/220 71 18 116/67 86 98 06/220 69 10 121/67 88 99 06/22 2100 71 12 118/67 86 98 06/22 2040 Nasal 3 cannula 06/22 2030 71 17 114/65 84 98 06/22 2000 77 19 121/78 95 97 06/22 1939 98.2 06/22 1930 97 Nasal 4 36 cannula 06/22 1930 79 15 114/69 86 97 PATIENT WEIGHT: Weight (lb): Weight (oz): Weight (kg): 80.100 Medications: Active Meds + DC'd Last 24 Hrs Apixaban 5 MG Q12HR PO (UNV) Aspirin 81 MG DAILY PO Isosorbide Mononitrate 60 MG BID PO Nitroglycerin 0.4 MG Q5M PRN PRN SL Carvedilol 3.125 MG Q12HR PO Atorvastatin Calcium 20 MG BEDTIME PO Enoxaparin Sodium 80 MG Q12HR SUBQ (DCr) Insulin Human Lispro S/SCALE AC HS SUBQ Insulin Glargine 10 UNIT DAILY SUBQ Albumin Human 3 ML ONCE PRN IV Ascorbic Acid 500 MG DAILY PO Duloxetine HCl 20 MG DAILY PO Furosemide 20 MG DAILY PO Levothyroxine Sodium 125 MCG DAILY@0630 PO Prednisone 20 MG DAILY PO Spironolactone 25 MG DAILY PO Budesonide 0.5 MG RTQ12H NEB Zinc Sulfate 220 MG TID PO Famotidine 20 MG BID AC PO Cholecalciferol 2,000 INTL.UNITS DAILY PO (CKD) Al Hydrox/Mg Hydrox/Simethicone 30 ML Q4H PRN PRN PO Albuterol Sulfate 2 PUFF RTQ4H PRN PRN INH Benzonatate 100 MG Q6H PRN PRN PO Bisacodyl 10 MG ASDIR PRN RECTAL Dextrose/Water 50 ML ASDIR PRN IV Docusate Sodium 100 MG BID PRN PRN PO Hydralazine HCl 10 MG Q4H PRN PRN IV Hydrocodone Bitart/Acetaminophen 1 TAB Q6H PRN PRN PO Labetalol HCl 10 MG Q4H PRN PRN IV Ondansetron HCl 4 MG Q4H PRN PRN IV Trazodone HCl 50 MG BEDTIME PRN PRN PO Physical Exam General appearance: no acute distress Cardiovascular: CV assessment: regular rate and rhythm, no rub Results Findings/Data: Laboratory Tests 06/23 06/23 06/23 1603 1229 0821 Chemistry POC Glucose (70 - 110 mg/dL) 240 H 266 H 186 H 06/23 06/22 0550 1920 Chemistry Sodium (134 - 147 mmol/L) 135 Potassium (3.4 - 5.0 mmol/L) 4.4 Chloride (100 - 108 mmol/L) 99 L Carbon Dioxide (21 - 32 mmol/L) 31 Anion Gap (4.0 - 15.0 GAP calc) 5.0 BUN (7 - 18 MG/DL) 37 H Creatinine (0.6 - 1.0 MG/DL) 0.9 Glomerular Filtr Rate (>60 estGFR) >=60 max estimate Glucose (70 - 110 MG/DL) 150 H POC Glucose (70 - 110 mg/dL) 405 H Calcium (8.5 - 10.1 MG/DL) 8.8 Phosphorus (2.5 - 4.9 MG/DL) 2.6 Magnesium (1.8 - 2.4 MG/DL) 2.1 Lactate Dehydrogenase (84 - 246 Unit/L) 271 H Laboratory Tests 06/23 0550 Hematology WBC (3.5 - 11.0 K/mm3) 13.3 H RBC (4.70 - 6.10 M/mm3) 3.08 L Hgb (10.4 - 14.9 G/DL) 8.5 L Hct (31.5 - 44.1 %) 28.4 L MCV (84.5 - 98.6 Fl) 92.2 MCH (27.0 - 34.2 pg) 27.6 MCHC (31.5 - 34.0 G/DL) 29.9 L RDW (11.5 - 14.5 SD) 17.2 H Plt Count (150 - 450 K/mm3) 356 MPV (7.0 - 10.5 fL) 11.20 H Neut % (Auto) (40 - 76 %) 73.6 Lymph % (Auto) (20.5 - 51.1 %) 12.5 L [place] % (Auto) (1.7 - 9.3 %) 12.8 H Eos % (Auto) (0.0 - 6.0 %) 0.2 Baso % (Auto) (0.0 - 2.0 %) 0.1 Neut # (Auto) (1.8 - 7.6 K/mm3) 9.8 H Lymph # (Auto) (0.6 - 3.2 K/mm3) 1.7 [place] # (Auto) (0.3 - 1.1 K/mm3) 1.7 H Eos # (Auto) (0.0 - 0.4 K/mm3) 0.0 Baso # (Auto) (0.0 - 0.1 K/mm3) 0.0 Abs Immat Gran (auto) (0.00 - 0.03 x10 3/uL) 0.10 H Add Manual Diff (CRITERIA DIFF/SCN) NO Immature Gran % (0.0 - 5.0 %) 0.8 Nucleated RBC % (0.0 - 1.0 /100WBC%) 0.0 Laboratory Tests 06/23 0550 Chemistry Magnesium (1.8 - 2.4 MG/DL) 2.1 Results: labs reviewed, EKG personally reviewed, rhythm personally rev'd, current med profile rev'd Diagnosis, Assessment Plan Free Text DxA P Notes Free Text DxA P Notes: -COVID19 and pneumonia -Chest pain: Mild elevated troponin; she has pathological Qs in I, aVL and right precordial leads with T wave inverison other leads; known cardiomyopathy and normal coronaries per cath in [place] according to daughter; medical management; ASA; started eliquis for LV apical thrombus and history of pulmonary embolism -Spoke to daughter Parag Foley at [phone]: She told me patient had normal coronariues on cath in [place]. Patient could be having stress cardiomyopathy. Patient was on warfarin at prior facility where her INR went to 7 and she required PRBC. I explianed her will change to eliquis. she voiced understanding. -Added Imdur ER and is responding to that. -ECHO in [facility] -Anemia; HTN;Cardiomyopathy; DM;Hypothyroidism; Mixed hyperlipidemia;COVID19;DNR ; -OK to discharge from cardiac standpoint and follow up with [facility] plasma center who is part of her network at [address] [facility] #: [id number] END OF REPORT [facility] 2020-06-23 13:39:00 [facility] ([facility]) Infect Disease Consult Note REPORT#:[id number] REPORT STATUS: Signed DATE:06/23/20 TIME:1339 PATIENT: LINDA MENEZES UNIT #: [id number] ROOM/BED: [place] [address] : 49 AGE: 70 SEX: F ATTEND: Murtaza Persaud MD ADM AUTHOR: Tommy Loco MD * ALL edits or amendments must be made on the electronic/computer document * History of Present Illness Requesting Clinician: Dr. Persaud Reason for consult: Recent covid-19 Chief complaint: Chest pain HPI: 70-year-old female with history of recent COVID 19 pneumonia, cardiomyopathy, hypertension, hyperlipidemia, hypothyroidism, diabetes mellitus type 2, who was transferred from [place] after COVID 19 pneumonia treatment to [facility] due to debility. She was then sent to the emergency department for acute onset of chest pain, no radiation, pain was sharp , intermittent, lasting minutes, no associated symptoms. In the emergency department, troponin was slightly elevated at the upper level of normal. EKG showed slight abnormalities that were reviewed by cardiology and determine likely related to her cardiomyopathy. CTA showed pulmonary embolus. Patient was started on heparin. History - Adult longitudinal Additional medical history: HTN;DM; Anemia; Cardiomyopathy; Hypothyroidism; hyperlipidemia Additional surgical history: Thyroidectomy; cholecystectomy; hysterectomy Additional family history: CAD and CVA in parents Alcohol use: Denies EtOH use Drug use: Denies recreational drugs Smoking status for patients 13 years old or older: Never Smoker Allergies: Coded Allergies: No Known Allergies (06/20/20) Ambulatory status: Walker Review of Systems Constitutional: Denies: chills, fever. Skin: Denies: rash. Allergy/Immun: Denies hives Eyes: Denies discharge ENT: Denies: sore throat. Respiratory: Denies: productive cough (sputum). GI: Denies: abdominal pain, diarrhea. : Denies: dysuria, flank pain. Musculoskeletal: Denies: joint swelling. Neuro: Denies: headache. Objective General VS/I O: Last Documented: Result Date Time Temp 36.6 06/23 1229 FiO2 32 06/23 0900 O2 Delivery Nasal cannula 06/23 09 O2 Flow Rate 3 06/23 0900 Pulse Ox 100 06/23 0735 B/P 122/60 06/23 0600 B/P Mean 84 06/23 0600 Pulse 70 06/23 0600 Resp 9 06/23 0600 Vital Signs Date Temp Pulse Resp B/P B/P Mean Pulse Ox FiO2 06/22-06/23 36.2-36.8 64-85 8-21 105-140/60-78 79-97 97-100 32-36 24 hour I O ending at 0700: 06/23 0700 06/22 1900 Intake Total 1400.00 Output Total 1500 Balance -100.00 Intake, IV 50.00 Intake, Oral 1350 Number 3 Incontinent Voids Output, Urine 1500 PATIENT WEIGHT: Weight (lb): Weight (oz): Weight (kg): 80.100 Physical Exam General appearance: alert, awake, oriented Head/eyes: atraumatic, clear cornea, EOMI, normal conjunctiva/sclera, normal eyelids/periorb, normocephalic ENT: moist mucosal membranes, normal nose, normal pharynx, normal sinus Neck: full range of motion, non-tender, normal thyroid, supple/no meningismus, no masses or swelling Cardiovascular: regular rate rhythm Respiratory: symmetric expansion, no distress Abdomen: non-tender, normal bowel sounds, soft, no CVA tenderness, no distention , no guarding, no mass/organomegaly, no rebound Genitourinary: no flank pain Extremities: no clubbing, no cyanosis Musculoskeletal: no joint swelling Neuro/HOME HEALTH CARE CASE MANAGER: alert, oriented X 3, CNII-XII intact, normal speech, Decreased strength in both legs and arms Skin: normal color, normal turgor, no rash Lymphatics: neck normal Psychiatry: normal affect, normal judgment/insight, normal mood Diagnosis, Assessment Plan Free Text DxA P Notes Free text DxA P notes: Labs: WBC decreasing Creatinine normal Covid SHONA pos Imaging: CTA GGO b/l, old PE Assessment: 1. Recent covid-19 pneumonia. Current findings are likely sequela from recent infection. 2. Positive covid SHONA does not indicate active disease. 3. Pulmonary embolism, likely old. 4. Chronic systolic heart failure. 5. Type 2 diabetes with hyperglycemia. Plan: 1. No need to treat with remdesivir. 2. Steroids per primary team. 3. Observe closely without antibiotics. Start broad-spectrum antibiotics if she decompensates. 4. Monitor CBC and CMP. 5. TTE noted. Thank you for this consult. at 1600 RPT #: [id number] END OF REPORT [facility] 2020-06-23 08:28:00 [facility] ([facility]) Hospitalist Progress Note REPORT#:[id number] REPORT STATUS: Signed DATE:06/23/20 TIME:827 PATIENT: LINDA MENEZES UNIT #: [id number] ROOM/BED: [place] [address] : 49 AGE: 70 SEX: F ATTEND: Murtaza Persaud MD ADM AUTHOR: Murtaza Persaud MD * ALL edits or amendments must be made on the electronic/computer document * Subjective Chief Complaint: Chest pain HPI: 70-year-old female with history of recent COVID 19 pneumonia, cardiomyopathy, hypertension, hyperlipidemia, hypothyroidism, diabetes mellitus type 2, who [facility] [place] [facility] and was sent to the emergency department for acute onset of chest pain in the middle of her chest, no radiation, sharp, intermittent, lasting minutes, no associated symptoms. In the emergency department, troponin was slightly elevated at the upper level of normal. EKG showed slight abnormalities that were reviewed by cardiology and determine likely related to her cardiomyopathy. Repeat troponin started to come down. Patient is free of chest pain. No need for emergent left heart catheterization at this time. CTA of the chest showed pulmonary embolus that can be determined whether acute or chronic. Patient was started on heparin. She is in the isolation unit due to COVID 19 positive. Past medical history: As stated in HPI Surgical history: Thyroidectomy, hysterectomy, cholecystectomy, bowel obstruction. Social history: Negative 3. Allergies: No known drug allergies. CODE STATUS: DNR discussed with patient and documentation available. Family history: Significant for heart disease and stroke in her father. Hospital course: 06/21/2020: Troponin flattened. Patient with intermittent chest pain. Elevated D dimer. Heparin changed for lovenox. 06/22/2020: Intermittent chest pain. H H stable. Nitro SL PRN added. ECHO pending. 06/23/2020: Patient is free of chest pain. H H has remained stable. ID consulted to assess COVID 19 active infection versus noncontagious carrier. Subjective: Patient seen and evaluated at bedside. She has no acute complaints. Per nurse, no other acute events except for above. Review of Systems All systems rev neg: except as marked Objective General VS/I O: Vital Signs: Date Time Temp Pulse Resp B/P B/P Pulse O2 O2 Flow FiO2 Mean Ox Delivery Rate 06/23 0735 100 Nasal 3 32 cannula 06/23 0600 70 9 122/60 84 99 06/23 0530 70 10 126/68 89 98 06/23 0500 69 12 128/72 91 97 06/23 0430 69 18 118/61 84 98 06/23 0400 70 15 132/67 94 100 06/23 0330 68 10 131/66 91 100 06/23 0329 36.8 06/23 0300 69 10 140/73 97 98 06/23 0200 67 11 135/72 95 99 06/23 0130 66 14 138/66 91 99 06/23 0100 65 8 105/61 79 100 06/23 0030 66 14 118/61 85 99 06/23 0000 64 9 115/69 87 100 06/22 2355 36.6 06/22 2330 66 11 113/65 84 100 06/22 2300 67 14 111/69 85 99 06/22 2230 68 12 119/65 86 99 06/22 2200 71 18 116/67 86 98 06/22 2130 69 10 121/67 88 99 06/22 2100 71 12 118/67 86 98 06/22 2040 Nasal 3 cannula 06/22 2030 71 17 114/65 84 98 06/22 2000 77 19 121/78 95 97 06/229 36.8 06/22 1930 97 Nasal 4 36 cannula 06/22 1930 79 15 114/69 86 97 06/22 1900 85 21 127/72 92 99 06/22 1745 82 21 99 06/22 1730 77 12 119/68 89 100 06/22 1700 75 13 124/70 91 99 06/22 1630 75 16 117/65 86 99 06/22 1600 77 13 112/60 81 98 06/22 1535 36.4 06/22 1530 76 8 111/60 80 97 06/22 1500 84 25 114/72 87 97 06/22 1430 80 16 108/62 78 99 06/22 1400 81 14 118/63 83 98 06/22 1330 83 18 123/72 92 98 06/22 1300 82 18 119/70 89 98 06/22 1230 85 25 110/60 80 98 06/22 1200 83 25 113/66 83 97 06/22 1133 36.5 06/22 1130 80 16 117/65 85 98 06/22 1125 81 06/22 1100 84 18 119/64 87 98 06/22 1030 83 15 125/58 84 98 06/22 1000 80 13 112/55 78 98 06/22 0930 80 15 115/56 79 98 06/22 0900 77 119/57 82 98 06/22 0830 77 112/57 79 99 24 hour I O ending at 0700: 06/23 0700 06/22 1900 Intake Total 1400.00 Output Total 1500 Balance -100.00 Intake, IV 50.00 Intake, Oral 1350 Number 3 Incontinent Voids Output, Urine 1500 PATIENT WEIGHT: Weight (lb): Weight (oz): Weight (kg): 80.100 Medications: Active Meds + DC'd Last 24 Hrs Magnesium Sulfate 50 ML ONCE ONE IV (DC) Aspirin 81 MG DAILY PO Isosorbide Mononitrate 60 MG BID PO Nitroglycerin 0.4 MG Q5M PRN PRN SL Carvedilol 3.125 MG Q12HR PO Atorvastatin Calcium 20 MG BEDTIME PO Enoxaparin Sodium 80 MG Q12HR SUBQ Insulin Human Lispro S/SCALE AC HS SUBQ Insulin Glargine 10 UNIT DAILY SUBQ Albumin Human 3 ML ONCE PRN IV Ascorbic Acid 500 MG DAILY PO Duloxetine HCl 20 MG DAILY PO Furosemide 20 MG DAILY PO Levothyroxine Sodium 125 MCG DAILY@0630 PO Prednisone 20 MG DAILY PO Spironolactone 25 MG DAILY PO Budesonide 0.5 MG RTQ12H NEB Zinc Sulfate 220 MG TID PO Famotidine 20 MG BID AC PO Cholecalciferol 2,000 INTL.UNITS DAILY PO (CKD) Al Hydrox/Mg Hydrox/Simethicone 30 ML Q4H PRN PRN PO Albuterol Sulfate 2 PUFF RTQ4H PRN PRN INH Benzonatate 100 MG Q6H PRN PRN PO Bisacodyl 10 MG ASDIR PRN RECTAL Dextrose/Water 50 ML ASDIR PRN IV Docusate Sodium 100 MG BID PRN PRN PO Hydralazine HCl 10 MG Q4H PRN PRN IV Hydrocodone Bitart/Acetaminophen 1 TAB Q6H PRN PRN PO Labetalol HCl 10 MG Q4H PRN PRN IV Ondansetron HCl 4 MG Q4H PRN PRN IV Trazodone HCl 50 MG BEDTIME PRN PRN PO Nutrition assessment: The data set between the solid lines has been imported from the dietitian's assessment. Any exceptions have been noted under Provider comments. BMI Calculated: 30.3 Nutrition related diagnosis: Nutrition diagnosis details: Nutrition problem: Nutrition etiology: Nutrition signs and symptoms: Nutrition prescription: Dietitian name: Assessment completed: Provider comments on imported dietitian assessment: Physical Exam General appearance: chronically ill appearing, frail, alert, awake Head/Eyes: atraumatic, EOMI ENT: moist mucosal membranes, normal dentition Neck: full range of motion, non-tender Cardiovascular: normal capillary refill, normal heart sounds Respiratory: aerating well, clear to auscultation Abdomen: non-tender, normal bowel sounds Extremities: edema, moves all, normal capillary refill Musculoskeletal: no CVA tenderness, no midline vertebral tend Neuro/HOME HEALTH CARE CASE MANAGER: alert, oriented X 3, CNII-XII intact Skin: abnormal color, dry Results Findings/Data: Laboratory Tests 06/23 06/22 06/22 0550 1920 1607 Chemistry Sodium (134 - 147 mmol/L) 135 Potassium (3.4 - 5.0 mmol/L) 4.4 Chloride (100 - 108 mmol/L) 99 L Carbon Dioxide (21 - 32 mmol/L) 31 Anion Gap (4.0 - 15.0 GAP calc) 5.0 BUN (7 - 18 MG/DL) 37 H Creatinine (0.6 - 1.0 MG/DL) 0.9 Glomerular Filtr Rate (>60 estGFR) >=60 max estimate Glucose (70 - 110 MG/DL) 150 H POC Glucose (70 - 110 mg/dL) 405 H 299 H Calcium (8.5 - 10.1 MG/DL) 8.8 Phosphorus (2.5 - 4.9 MG/DL) 2.6 Magnesium (1.8 - 2.4 MG/DL) 2.1 Lactate Dehydrogenase (84 - 246 Unit/L) 271 H 06/22 1129 Chemistry POC Glucose (70 - 110 mg/dL) 273 H Laboratory Tests 06/23 0550 Hematology WBC (3.5 - 11.0 K/mm3) 13.3 H RBC (4.70 - 6.10 M/mm3) 3.08 L Hgb (10.4 - 14.9 G/DL) 8.5 L Hct (31.5 - 44.1 %) 28.4 L MCV (84.5 - 98.6 Fl) 92.2 MCH (27.0 - 34.2 pg) 27.6 MCHC (31.5 - 34.0 G/DL) 29.9 L RDW (11.5 - 14.5 SD) 17.2 H Plt Count (150 - 450 K/mm3) 356 MPV (7.0 - 10.5 fL) 11.20 H Neut % (Auto) (40 - 76 %) 73.6 Lymph % (Auto) (20.5 - 51.1 %) 12.5 L [place] % (Auto) (1.7 - 9.3 %) 12.8 H Eos % (Auto) (0.0 - 6.0 %) 0.2 Baso % (Auto) (0.0 - 2.0 %) 0.1 Neut # (Auto) (1.8 - 7.6 K/mm3) 9.8 H Lymph # (Auto) (0.6 - 3.2 K/mm3) 1.7 [place] # (Auto) (0.3 - 1.1 K/mm3) 1.7 H Eos # (Auto) (0.0 - 0.4 K/mm3) 0.0 Baso # (Auto) (0.0 - 0.1 K/mm3) 0.0 Abs Immat Gran (auto) (0.00 - 0.03 x10 3/uL) 0.10 H Add Manual Diff (CRITERIA DIFF/SCN) NO Immature Gran % (0.0 - 5.0 %) 0.8 Nucleated RBC % (0.0 - 1.0 /100WBC%) 0.0 Diagnosis, Assessment Plan Orders: Procedure Date/time Status OXYGEN PER HOUR 06/23 2035 Active NEB TREATMENT SUBSQ 06/23 2035 Active PHYSICAL THERAPIST CONSULT 06/23 830 Active CASE MANAGEMENT CONSULT 06/23 08 Active PHYSICIAN CONSULT 06/23 0827 Active OXYGEN PER HOUR 06/23 0736 Active NEB TREATMENT SUBSQ 06/23 0736 Active D-DIMER 06/23 0650 Active PT EVAL MOD COMPLEX 87570 06/23 UNK Complete FUNCTIONAL TRAINING 15 MINUTES 06/23 UNK Complete Consultants: cardiology Code status: do not resuscitate Plan discussed with: patient, daughter, nurse Free Text DxA P Notes Free text DxA P notes: Assessment: Acute atypical chest pain Pulmonary embolus. Chronic versus acute. COVID positive Corticosteroid-induced leukocytosis Cardiomyopathy Essential hypertension Elevated troponin Hyperlipidemia Hypothyroidism Diabetes mellitus type 2 Plan: Intermediate CARE unit Inpatient Telemetry Lovenox. Cardiology will change Eliquis Cardiology follows Nitro SL PRN Blood pressure control Droplet isolation Repeat COVID 19 test positive. Carrier. Continue Statin Sliding scale insulin with titration CODE STATUS DNR Guarded prognosis CM consult for SNF evaluation ID consult at 2104 RPT #: [id number] END OF REPORT [facility] 2020-06-22 08:50:00 [facility] ([facility]) Hospitalist Progress Note REPORT#:[id number] REPORT STATUS: Signed DATE:06/22/20 TIME:0850 PATIENT: LINDA MENEZES UNIT #: [id number] ROOM/BED: [place] [address] : 49 AGE: 70 SEX: F ATTEND: Murtaza Persaud MD ADM AUTHOR: Murtaza Persaud MD * ALL edits or amendments must be made on the electronic/computer document * Subjective Chief Complaint: Chest pain HPI: 70-year-old female with history of recent COVID 19 pneumonia, cardiomyopathy, hypertension, hyperlipidemia, hypothyroidism, diabetes mellitus type 2, who was transferred from [place] after COVID 19 pneumonia treatment [facility] due to debility and was sent to the emergency department for acute onset of chest pain in the middle of her chest, no radiation, sharp, intermittent, lasting minutes, no associated symptoms. In the emergency department, troponin was slightly elevated at the upper level of normal. EKG showed slight abnormalities that were reviewed by cardiology and determine likely related to her cardiomyopathy. Repeat troponin started to come down. Patient is free of chest pain. No need for emergent left heart catheterization at this time. CTA of the chest showed pulmonary embolus that can be determined whether acute or chronic. Patient was started on heparin. She is in the isolation unit due to COVID 19 positive. Past medical history: As stated in HPI Surgical history: Thyroidectomy, hysterectomy, cholecystectomy, bowel obstruction. Social history: Negative 3. Allergies: No known drug allergies. CODE STATUS: DNR discussed with patient and documentation available. Family history: Significant for heart disease and stroke in her father. Hospital course: 06/21/2020: Troponin flattened. Patient with intermittent chest pain. Elevated D dimer. Heparin changed for lovenox. 06/22/2020: Intermittent chest pain. H H stable. Nitro SL PRN added. ECHO pending. Subjective: Patient seen and evaluated. She refers chest pain. Per nurse, no other acute events. Review of Systems All systems rev neg: except as marked Objective General VS/I O: Vital Signs: Date Time Temp Pulse Resp B/P B/P Pulse O2 O2 Flow FiO2 Mean Ox Delivery Rate 06/22 739 36.4 06/22 730 69 133/66 91 98 06/22 0712 100 Nasal 3 cannula 06/22 700 69 132/68 93 99 06/22 0649 68 98 06/22 0645 66 100 06/22 0630 67 129/67 93 99 06/22 0615 68 0 98 06/22 0600 72 15 127/65 90 99 12/13 0545 70 16 99 12/13 0530 68 15 129/70 93 98 12/13 0515 67 13 99 12/13 0505 70 17 128/66 91 98 12/13 0500 68 8 99 12/13 0445 69 25 98 12/13 0430 68 16 100 12/13 0415 67 17 98 12/13 0406 36.6 12/13 0400 67 16 135/66 94 99 12/13 0345 66 6 98 12/13 0330 65 99 12/13 0315 67 0 98 12/13 0300 67 9 122/65 89 98 12/13 0245 67 16 97 12/13 0230 67 13 98 12/13 0215 66 18 98 12/13 0200 66 9 119/64 85 98 12/13 0145 68 13 99 12/13 0130 66 14 99 12/13 0115 66 12 99 12/13 0100 66 13 121/65 86 98 12/13 0045 64 10 98 12/13 0036 72 32 98 12/13 0030 75 34 98 12/13 0015 66 12 99 1213 0000 Nasal 2 cannula 06/22 0000 65 10 109/58 79 99 06/21 2345 66 10 98 06/21 2330 65 9 99 06/21 2325 36.8 06/21 2315 66 0 99 06/21 2300 67 10 113/64 83 98 06/21 2245 66 16 98 06/21 2230 68 14 99 06/21 2215 66 10 99 06/21 2200 69 12 134/71 97 99 06/21 2145 71 18 100 06/21 2130 70 12 100 06/21 2115 74 19 99 06/21 2100 72 13 121/69 90 100 06/21 2047 36.7 18 06/21 2045 78 25 99 06/21 2030 76 28 100 06/21 2024 100 Nasal 4 cannula 06/21 2015 74 20 99 06/21 2000 Nasal 2 cannula 06/21 2000 Nasal 2 cannula 06/21 2000 73 21 132/71 96 100 06/21 1945 74 17 99 06/21 1800 78 14 118/60 83 98 06/21 1700 69 13 110/70 84 98 06/21 1600 36.9 06/21 1600 76 16 108/60 79 99 06/21 1500 86 34 120/68 89 98 06/21 1400 72 11 107/59 78 100 1212 1300 69 15 105/52 74 99 06/21 1200 72 17 128/61 87 91 06/21 1137 36.4 06/21 1100 72 16 126/60 83 96 06/21 1000 75 119/59 83 97 24 hour I O ending at 0700: 06/22 0700 06/21 1900 Intake Total 850 Output Total Balance 850 Intake, Oral 850 Number 2 Incontinent Voids PATIENT WEIGHT: Weight (lb): Weight (oz): Weight (kg): 80.100 Medications: Active Meds + DC'd Last 24 Hrs Aspirin 81 MG DAILY PO Isosorbide Mononitrate 30 MG DAILY PO (CAN) Isosorbide Mononitrate 60 MG BID PO Nitroglycerin 0.4 MG Q5M PRN PRN SL (UNV) Isosorbide Mononitrate 30 MG ONCE ONE PO (DC) Carvedilol 3.125 MG Q12HR PO Atorvastatin Calcium 20 MG BEDTIME PO Enoxaparin Sodium 80 MG Q12HR SUBQ Insulin Glargine 10 UNIT BEDTIME SUBQ (DC) Insulin Human Lispro SLIDING SCALE ( HIGH) AC HS SUBQ (CAN) Insulin Human Lispro S/SCALE AC HS SUBQ Insulin Glargine 10 UNIT DAILY SUBQ Albumin Human 3 ML ONCE PRN IV Ascorbic Acid 500 MG DAILY PO Carvedilol 6.25 MG DAILY PO (DC) Duloxetine HCl 20 MG DAILY PO Furosemide 20 MG DAILY PO Levothyroxine Sodium 125 MCG DAILY@0630 PO Prednisone 20 MG DAILY PO Spironolactone 25 MG DAILY PO Budesonide 0.5 MG RTQ12H NEB Zinc Sulfate 220 MG TID PO Famotidine 20 MG BID AC PO Insulin Human Lispro S/SCALE LOW AC HS SUBQ (DC) Cholecalciferol 2,000 INTL.UNITS DAILY PO (CKD) Al Hydrox/Mg Hydrox/Simethicone 30 ML Q4H PRN PRN PO Albuterol Sulfate 2 PUFF RTQ4H PRN PRN INH Benzonatate 100 MG Q6H PRN PRN PO Bisacodyl 10 MG ASDIR PRN RECTAL Dextrose/Water 50 ML ASDIR PRN IV Docusate Sodium 100 MG BID PRN PRN PO Hydralazine HCl 10 MG Q4H PRN PRN IV Hydrocodone Bitart/Acetaminophen 1 TAB Q6H PRN PRN PO Labetalol HCl 10 MG Q4H PRN PRN IV Ondansetron HCl 4 MG Q4H PRN PRN IV Trazodone HCl 50 MG BEDTIME PRN PRN PO Nutrition assessment: The data set between the solid lines has been imported from the dietitian's assessment. Any exceptions have been noted under Provider comments. BMI Calculated: 30.3 Nutrition related diagnosis: Nutrition diagnosis details: Nutrition problem: Nutrition etiology: Nutrition signs and symptoms: Nutrition prescription: Dietitian name: Assessment completed: Provider comments on imported dietitian assessment: Physical Exam General appearance: chronically ill appearing, frail, alert, awake Head/Eyes: atraumatic, EOMI ENT: moist mucosal membranes, normal dentition Neck: full range of motion, non-tender Cardiovascular: normal capillary refill, normal heart sounds Respiratory: aerating well, clear to auscultation Abdomen: non-tender, normal bowel sounds Extremities: edema, moves all, normal capillary refill Musculoskeletal: no CVA tenderness, no midline vertebral tend Neuro/HOME HEALTH CARE CASE MANAGER: alert, oriented X 3, CNII-XII intact Skin: abnormal color, dry Results Findings/Data: Laboratory Tests 06/22 06/22 06/21 06/21 06/21 0737 0500 2145 1554 1134 Chemistry Sodium (134 - 147 mmol/L) 137 Potassium (3.4 - 5.0 mmol/L) 4.2 Chloride (100 - 108 mmol/L) 100 Carbon Dioxide (21 - 32 mmol/L) 34 H Anion Gap (4.0 - 15.0 GAP calc) 3.0 L BUN (7 - 18 MG/DL) 42 H Creatinine (0.6 - 1.0 MG/DL) 1.0 Glomerular Filtr Rate (>60 estGFR) 58 L Glucose (70 - 110 MG/DL) 95 POC Glucose (70 - 110 mg/dL) 118 H 195 H 374 H 420 H Calcium (8.5 - 10.1 MG/DL) 9.3 Phosphorus (2.5 - 4.9 MG/DL) 2.6 Magnesium (1.8 - 2.4 MG/DL) 1.7 L Lactate Dehydrogenase (84 - 246 Unit/L) 326 H Laboratory Tests 06/22 0500 Coagulation D-Dimer (215 - 500 ng/mLFEU) 3044 *H Laboratory Tests 06/22 0500 Hematology WBC (3.5 - 11.0 K/mm3) 16.1 H RBC (4.70 - 6.10 M/mm3) 3.20 L Hgb (10.4 - 14.9 G/DL) 8.9 L Hct (31.5 - 44.1 %) 28.5 L MCV (84.5 - 98.6 Fl) 89.1 MCH (27.0 - 34.2 pg) 27.8 MCHC (31.5 - 34.0 G/DL) 31.2 L RDW (11.5 - 14.5 SD) 16.8 H Plt Count (150 - 450 K/mm3) 350 MPV (7.0 - 10.5 fL) 12.20 H Neut % (Auto) (40 - 76 %) 79.0 H Lymph % (Auto) (20.5 - 51.1 %) 8.2 L [place] % (Auto) (1.7 - 9.3 %) 11.8 H Eos % (Auto) (0.0 - 6.0 %) 0.2 Baso % (Auto) (0.0 - 2.0 %) 0.1 Neut # (Auto) (1.8 - 7.6 K/mm3) 12.7 H Lymph # (Auto) (0.6 - 3.2 K/mm3) 1.3 [place] # (Auto) (0.3 - 1.1 K/mm3) 1.9 H Eos # (Auto) (0.0 - 0.4 K/mm3) 0.0 Baso # (Auto) (0.0 - 0.1 K/mm3) 0.0 Abs Immat Gran (auto) (0.00 - 0.03 x10 3/uL) 0.11 H Add Manual Diff (CRITERIA DIFF/SCN) NO Immature Gran % (0.0 - 5.0 %) 0.7 Nucleated RBC % (0.0 - 1.0 /100WBC%) 0.0 Diagnosis, Assessment Plan Orders: Procedure Date/time Status OXYGEN PER HOUR 06/22 715 Active NEB TREATMENT SUBSQ 06/22 715 Active Consultants: cardiology Code status: do not resuscitate Plan discussed with: patient, nurse Free Text DxA P Notes Free text DxA P notes: Assessment: Acute atypical chest pain Pulmonary embolus. Chronic versus acute. COVID positive Corticosteroid-induced leukocytosis Cardiomyopathy Essential hypertension Elevated troponin Hyperlipidemia Hypothyroidism Diabetes mellitus type 2 Plan: Intermediate CARE unit Inpatient Telemetry Lovenox Cardiology follows Nitro SL PRN added Blood pressure control Droplet isolation Repeat COVID 19 test positive. Carrier. Continue Statin Sliding scale insulin with titration CODE STATUS DNR Guarded prognosis at 1359 RPT #: [id number] END OF REPORT [facility] 2020-06-21 16:17:00 [id number] [facility] [address] [place] [address] PATIENT NAME: LINDA MENEZES ADMIT DATE: 06/20/20 ACCOUNT NO: [id number] ROOM NO: L.310 AGE: 70 REPORT TYPE: eECHOCARDIOGRAM REPORT SEX: F ADMITTING PHYSICIAN: Murtaza Persaud MD ATTENDING PHYSICIAN: Murtaza Persaud MD *[facility]* [address] [place], [place] [address] Transthoracic Echocardiogram Patient: Linda Menezes Study Date: 06/21/2020 BP: Location: [facility] URN: [id number] : 1950 Age: 70 Height: 64 in / 162.6 cm Gender: F Weight: 178.2 lb / 81 kg BMI/BSA: 30.7 kg/m 2 / 1.94 m 2 *Ordering Physician: * Ced Watkins MD *Interpreting Physician: * Ced Watkins MD *Weatherization Installer: * David Lee Than Indications: NSTEMI. Study data: Transthoracic echocardiogram. Complete 2D, complete spectral Doppler, and color Doppler. Location: Bedside. Patient status: Inpatient. Patient room number: 310. Study status: Routine. Findings Left ventricle: The cavity size is normal. Wall thickness is mildly to moderately increased. The estimated ejection fraction is 30-34%. There is ballooning of distal left ventricle and left ventricle apex with possible small left ventricle apical thrombus. Doppler parameters are consistent with abnormal left ventricular relaxation (grade 1 diastolic dysfunction). Right ventricle: The cavity size is normal. Systolic function is PATIENT NAME: LINDA MENEZES normal. Left atrium: The atrium is mildly dilated. Right atrium: The atrium is normal in size. Aorta: Aortic root: The aortic root is normal in size. Aortic valve: The valve is structurally normal. The valve is trileaflet. There is no evidence of stenosis. Mitral valve: The valve is structurally normal. There is mild regurgitation. Tricuspid valve: The valve is structurally normal. There is mild regurgitation. Pulmonic valve: The valve is structurally normal. Pericardium: A pericardial effusion is identified. Small-moderate size effusion without tamponade physiology. Systemic veins: Inferior vena cava: The vessel is normal in size. Measurements Left ventricle Value Ref LANEY, LAX 4.8 cm 3.8 - 5.2 ESD, LAX 4.1 cm 2.2 - 3.5 ESD/bsa, LAX 2.1 cm/m 2 1.3 - 2.1 FS, LAX 14 % 27 - 45 PW, ED 1.5 cm 0.6 - 0.9 IVS/PW, ED 0.97 EF 30 % 54 - 74 E', med marquise, TDI 3.4 cm/sec >=7.0 E/e', med marquise, TDI 12 LVOT Value Ref Diam, S 2.19 cm Area 3.8 cm 2 Peak gege, S 0.86 m/sec Mean gege, S 0.67 m/sec VTI, S 16.5 cm Peak grad, S 3 mm Hg Mean grad, S 2 mm Hg SV 62 ml SV/bsa 32 ml/m 2 Ventricular septum Value Ref IVS, ED 1.5 cm 0.6 - 0.9 Right ventricle Value Ref LANEY, LAX 3.0 cm Pressure, S 29 mm Hg Left atrium Value Ref AP dim, ES 3.93 cm 2.70 - 3.80 AP dim, ES MM 3.4 cm 2.7 - 3.8 LA/Ao root ratio, MM 0.83 PATIENT NAME: LINDA MENEZES Aortic valve Value Ref Leaflet sep, MM 2.11 cm Peak v, S 1.18 m/sec Mean v, S 0.77 m/sec VTI, S 19.9 cm Mean grad, S 2.7 mm Hg Peak grad, S 5.6 mm Hg LVOT/AV, VTI ratio 0.83 ROBE, VTI 3.14 cm 2 LVOT/AV, Vpeak ratio 0.73 ROBE, Vmax 2.75 cm 2 Mitral valve Value Ref E-septal separation 0.5 cm E-F slope 0.08 m/sec Peak E 0.4 m/sec Peak A 0.94 m/sec Decel time 135 ms Peak E/A ratio 0.43 MR peak v 3.7 m/sec Tricuspid valve Value Ref TR peak v 2.57 m/sec <=2.8 Peak RV-RA grad, S 26 mm Hg Aortic root Value Ref Root diam 3.2 cm <4.1 S-T junct diam, S 3.1 cm S-T junct diam/bsa, 1.6 cm/m 2 S Root diam, ED MM 4.12 cm Ascending aorta Value Ref AAo AP diam, S 3.0 cm AAo AP diam/bsa, S 1.5 cm/m 2 Pulmonary artery Value Ref Pressure, S 25.9 mm Hg Systemic veins Value Ref Estimated CVP 3 mm Hg Conclusions Summary: 1. Left ventricle: The cavity size is normal. Wall thickness is mildly to moderately increased. The estimated ejection fraction is 30-34%. There is ballooning of distal left ventricle and left ventricle apex with possible small left ventricle apical thrombus. Doppler parameters are consistent with abnormal left ventricular relaxation (grade 1 diastolic dysfunction). 2. Left atrium: The atrium is mildly dilated. PATIENT NAME: LINDA MENEZES 3. Pericardium, extracardiac: A pericardial effusion is identified. Small-moderate size effusion without tamponade physiology. Prepared and electronically signed by Ced Watkins MD 06/21/2020 16:17 at 1618 PATIENT NAME: LINDA MENEZES [facility] 2020-06-21 13:54:00 [facility] ([facility]) Cardiology Consultation REPORT#:[id number] REPORT STATUS: Signed DATE:06/21/20 TIME:1354 PATIENT: LINDA MENEZES UNIT #: [id number] ROOM/BED: [place] [address] : 49 AGE: 70 SEX: F ATTEND: Murtaza Persaud MD ADM AUTHOR: Ced Watkins MD * ALL edits or amendments must be made on the electronic/computer document * History of Present Illness HPI Requesting Clinician: Hospitalist Reason for consult: Chest pain Chief complaint: chest pain HPI: Mrs Sethi was transferred from [facility] to her efor chest pain. She was diagnosed with COVID19 and after hospitalization was admitted to [facility]. She complained of cjhest pain, retrosternal at rest, non radiating and therefore was transferred here. She has known cardiomyopathy. History - Adult longitudinal Additional medical history: HTN;DM; Anemia; Cardiomyopathy; Hypothyroidism; hyperlipidemia Additional surgical history: Thyroidectomy; cholecystectomy; hysterectomy Additional family history: CAD and CVA in parents Alcohol use: Denies EtOH use Drug use: Denies recreational drugs Smoking status for patients 13 years old or older: Never Smoker Home medications: Home Medications: CARVEDILOL (COREG) 6.25 MG PO DAILY predniSONE 20 MG PO DAILY ATORVASTATIN (LIPITOR) 20 MG PO DAILY MELATONIN 3 MG PO BEDTIME LEVOTHYROXINE (SYNTHROID) 125 MCG PO DAILY SPIRONOLACTONE (ALDACTONE) 25 MG PO DAILY traMADol (ULTRAM) 50 MG PO Q6H INSULIN GLARGINE (LANTUS) 5 UNITS SUBQ BEDTIME DULoxetine DR (CYMBALTA) 20 MG PO DAILY FUROSEMIDE (LASIX) 20 MG PO DAILY levoFLOXacin (LEVAQUIN) 500 MG PO DAILY INSULIN NPH/REG INSULIN HUM (NovoLIN 70/30) 5 UNITS SUBQ BID AC ASCORBIC ACID (VITAMIN C) 500 MG PO DAILY ZINC SULFATE (ORAZINC) 220 MG PO TID Allergies: Coded Allergies: No Known Allergies (06/20/20) Review of Systems Constitutional: generalized weakness. Skin: Denies: ecchymosis, rash. Allergy/Immun: Denies: itching, rhinorrhea, sneezing. Eyes: Denies: redness, discharge. ENT: Denies: ear drainage, ear ringing, nasal congestion. Respiratory: Reports: ROBERTS (dyspnea on exertion). Denies: hemoptysis, parox nocturnal dyspnea. Cardiovascular: Reports: chest pain, dyspnea on exertion. GI: Denies: hematemesis, hematochezia, melena, vomiting. : Denies: dysuria, hematuria. Musculoskeletal: Denies: joint swelling, neck pain. Heme: Denies: bleeding, bruising. Endocrine: Denies: cold intolerance, heat intolerance, weight gain, weight loss. Neuro: Denies: slurred speech, syncope. Psych: Denies: suicidal ideation, visual hallucination. Objective General VS/I O: Vital Signs: Date Time Temp Pulse Resp B/P B/P Pulse O2 O2 Flow FiO2 Mean Ox Delivery Rate 06/21 1137 97.5 06/21 0800 71 25 153/64 92 95 / 0757 97.5 06/21 0700 71 30 138/63 90 98 12/12 0602 68 12 99 12/12 0600 70 13 137/74 99 99 12 0556 67 13 99 12/12 0541 67 14 98 /12 0526 68 12 98 12/12 0511 67 13 97 /12 0500 66 13 152/70 100 97 06/21 0456 68 14 96 06/21 0441 69 20 98 06/21 0426 70 13 97 06/21 0411 79 18 100 06/21 0400 98.4 06/21 0400 71 17 138/68 97 98 06/21 0356 70 14 98 06/21 0341 69 19 98 06/21 0326 70 18 98 06/21 0311 69 16 97 06/21 0300 69 13 139/71 96 99 06/21 0256 69 15 99 06/21 0241 69 16 97 06/21 0226 69 15 98 06/21 0211 68 13 98 06/21 0200 68 10 141/73 101 99 06/21 0156 68 13 97 06/21 0141 67 8 99 06/21 0131 71 23 134/68 95 100 06/21 0126 71 24 97 06/21 0111 65 4 98 06/21 0100 Nasal 2 cannula 06/21 0055 98.2 20 06/20 2300 65 17 129/68 88 100 Nasal 2 cannula 06/200 69 17 124/65 84 100 Nasal 2 cannula 06/20 1956 96 Nasal 2 28 cannula 06/20 1935 66 17 125/66 85 100 Nasal 2 cannula 06/20 1800 78 18 131/84 99 100 06/20 1700 Nasal 2 cannula 06/20 1700 97.5 69 13 127/65 85 100 06/20 1535 Nasal 2 cannula 06/20 1535 78 18 125/68 87 100 Nasal 2 cannula 06/20 1436 70 12 110/56 74 100 Nasal 2 cannula 24 hour I O ending at 0700: 06/21 0700 06/20 1900 Intake Total 120.00 56.00 Output Total Balance 120.00 56.00 Intake, IV 120.00 56.00 Number 0 Bowel Movements Number 1 Incontinent Voids Number Voids 1 Patient 177 lb Weight Weight Bed scale Measurement Method PATIENT WEIGHT: Weight (lb): Weight (oz): Weight (kg): 80.100 Medications: Current Active Medications Medication Dose/Rte/Freq Days Qty Entered Max Daily Dose CARVEDILOL (COREG) 6.25 MG PO DAILY 06/20/20 Strength: 6.25 MG TAB 1342 predniSONE 20 MG PO DAILY 06/20/20 Strength: 20 MG TAB 1349 ATORVASTATIN (LIPITOR) 20 MG PO DAILY 06/20/20 Strength: 20 MG TAB 1350 MELATONIN 3 MG PO BEDTIME 06/20/20 Strength: 3 MG TAB 1350 LEVOTHYROXINE (SYNTHROID) 125 MCG PO DAILY 06/20/20 Strength: 125 MCG TAB 1350 SPIRONOLACTONE 25 MG PO DAILY 06/20/20 (ALDACTONE) 1350 Strength: 25 MG TAB traMADol (ULTRAM) 50 MG PO Q6H 06/20/20 Strength: 50 MG TAB 1351 INSULIN GLARGINE (LANTUS) 5 UNITS SUBQ 06/20/20 Strength: 100 UNIT/ML VIAL BEDTIME [address] (CYMBALTA) 20 MG PO DAILY 06/20/20 Strength: 20 MG CAP.DR 1352 FUROSEMIDE (LASIX) 20 MG PO DAILY 06/20/20 Strength: 20 MG TAB 1353 levoFLOXacin (LEVAQUIN) 500 MG PO DAILY 06/20/20 Strength: 500 MG TAB 1353 INSULIN NPH/REG INSULIN 5 UNITS SUBQ BID AC 06/20/20 HUM 1353 (NovoLIN 70/30) Strength: 100 UNIT/ML (70-30) VIAL ASCORBIC ACID (VITAMIN C) 500 MG PO DAILY 06/20/20 Strength: 500 MG TAB 1353 ZINC SULFATE (ORAZINC) 220 MG PO TID 06/20/20 Strength: 220 MG (50 MG ZINC) CAP 1354 Physical Exam General appearance: awake Head/Eyes: EOMI, PERRLA Neck: no JVD Cardiovascular: CV assessment: regular rate and rhythm, no rub, Soft systolic left parasternal murmur Respiratory: Bilateral air entry +; fine scattered crepitations Abdomen: non-tender, normal bowel sounds, no distention Lower extremity: LE assessment: edema Neuro/HOME HEALTH CARE CASE MANAGER: alert, oriented X 3, normal speech, no motor deficits Results Findings/Data: Laboratory Tests 06/21 06/21 06/21 06/20 06/20 1134 0751 0450 2106 1618 Chemistry Sodium (134 - 147 mmol/L) 135 Potassium (3.4 - 5.0 mmol/L) 4.0 Chloride (100 - 108 mmol/L) 97 L Carbon Dioxide (21 - 32 mmol/L) 36 H Anion Gap (4.0 - 15.0 GAP calc) 2.0 L BUN (7 - 18 MG/DL) 42 H Creatinine (0.6 - 1.0 MG/DL) 1.0 Glomerular Filtr Rate (>60 estGFR) 58 L Glucose (70 - 110 MG/DL) 243 H POC Glucose (70 - 110 mg/dL) 420 H 238 H 297 H 293 H Calcium (8.5 - 10.1 MG/DL) 8.5 Phosphorus (2.5 - 4.9 MG/DL) 2.9 Magnesium (1.8 - 2.4 MG/DL) 1.4 L Lactate Dehydrogenase (84 - 246 271 H Unit/L) 06/20 06/20 1430 1430 Chemistry Troponin I (0.000 - 0.045 NG/ML) 0.791 *H Triglycerides (0 - 150 MG/DL) 57 Cholesterol (133 - 200 MG/DL) 80 L LDL Cholesterol Measurd (0 - 129 MG/DL) 34 Non-HDL Cholesterol (<130 mg/dL) 38 HDL Cholesterol (40 - 59 MG/DL) 42 LDL/HDL Ratio (1.48 - 3.22 Avg Ratio) 0.80 L Cholesterol/HDL Ratio (0 RATIO) 1.90 Laboratory Tests 06/21 Coagulation PTT (Cannon) (26 - 35 SECONDS) 160.7 *H 35.2 H D-Dimer (215 - 500 ng/mLFEU) 4184 *H Laboratory Tests 06/21 450 Hematology WBC (3.5 - 11.0 K/mm3) 15.4 H RBC (4.70 - 6.10 M/mm3) 3.02 L Hgb (10.4 - 14.9 G/DL) 8.2 L Hct (31.5 - 44.1 %) 26.3 L MCV (84.5 - 98.6 Fl) 87.1 MCH (27.0 - 34.2 pg) 27.2 MCHC (31.5 - 34.0 G/DL) 31.2 L RDW (11.5 - 14.5 SD) 15.9 H Plt Count (150 - 450 K/mm3) 352 MPV (7.0 - 10.5 fL) 11.10 H Neut % (Auto) (40 - 76 %) 79.1 H Lymph % (Auto) (20.5 - 51.1 %) 9.5 L [place] % (Auto) (1.7 - 9.3 %) 10.1 H Eos % (Auto) (0.0 - 6.0 %) 0.1 Baso % (Auto) (0.0 - 2.0 %) 0.1 Neut # (Auto) (1.8 - 7.6 K/mm3) 12.2 H Lymph # (Auto) (0.6 - 3.2 K/mm3) 1.5 [place] # (Auto) (0.3 - 1.1 K/mm3) 1.6 H Eos # (Auto) (0.0 - 0.4 K/mm3) 0.0 Baso # (Auto) (0.0 - 0.1 K/mm3) 0.0 Abs Immat Gran (auto) (0.00 - 0.03 x10 3/uL) 0.17 H Add Manual Diff (CRITERIA DIFF/SCN) NO Immature Gran % (0.0 - 5.0 %) 1.1 Nucleated RBC % (0.0 - 1.0 /100WBC%) 0.0 Laboratory Tests 06/21 06/20 0450 1430 Chemistry Magnesium (1.8 - 2.4 MG/DL) 1.4 L Troponin I (0.000 - 0.045 NG/ML) 0.791 *H Results: labs reviewed, EKG personally reviewed, current med profile rev'd Diagnosis, Assessment Plan Free Text DxA P Notes Free Text DxA P Notes: -COVID19 and pneumonia -Chest pain: Mild elevated troponin; she has pathological Qs in I, aVL and right precordial leads with T wave inverison other leads; known cardiomyopathy; medical management; ASA; if she gets of oral anticoagulation for other reasons than NO need for plavix or else she will need plavix. -Add Imdur ER -ECHO -Anemia; HTN;Cardiomyopathy; DM;Hypothyroidism; Mixed hyperlipidemia;COVID19;DNR at 1407 RPT #: [id number] END OF REPORT [facility] 2020-06-21 08:48:00 [facility] ([facility]) Hospitalist Progress Note REPORT#:[id number] REPORT STATUS: Signed DATE:06/21/20 TIME:0848 PATIENT: LINDA MENEZES UNIT #: [id number] ROOM/BED: [place] [address] : 49 AGE: 70 SEX: F ATTEND: Murtaza Persaud MD ADM AUTHOR: Murtaza Persaud MD * ALL edits or amendments must be made on the electronic/computer document * Subjective Chief Complaint: Chest pain HPI: 70-year-old female with history of recent COVID 19 pneumonia, cardiomyopathy, hypertension, hyperlipidemia, hypothyroidism, diabetes mellitus type 2, who was transferred from [place] after COVID 19 pneumonia treatment [facility] due to debility and was sent to the emergency department for acute onset of chest pain in the middle of her chest, no radiation, sharp, intermittent, lasting minutes, no associated symptoms. In the emergency department, troponin was slightly elevated at the upper level of normal. EKG showed slight abnormalities that were reviewed by cardiology and determine likely related to her cardiomyopathy. Repeat troponin started to come down. Patient is free of chest pain. No need for emergent left heart catheterization at this time. CTA of the chest showed pulmonary embolus that can be determined whether acute or chronic. Patient was started on heparin. She is in the isolation unit due to COVID 19 positive. Past medical history: As stated in HPI Surgical history: Thyroidectomy, hysterectomy, cholecystectomy, bowel obstruction. Social history: Negative 3. Allergies: No known drug allergies. CODE STATUS: DNR discussed with patient and documentation available. Family history: Significant for heart disease and stroke in her father. Hospital course: 06/21/2020: Troponin flattened. Patient with intermittent chest pain. Elevated D dimer. Heparin changed for lovenox. Subjective: Patient seen and evaluated. She refers chest pain. Per nurse, no other acute events. Review of Systems All systems rev neg: except as marked Objective General VS/I O: Vital Signs: Date Time Temp Pulse Resp B/P B/P Pulse O2 O2 Flow FiO2 Mean Ox Delivery Rate 12/12 0800 71 25 153/64 92 95 / 0757 36.4 12/12 0700 71 30 138/63 90 98 12/12 0602 68 12 99 12/12 0600 70 13 137/74 99 99 /12 0556 67 13 99 12/12 0541 67 14 98 12/12 0526 68 12 98 12/12 0511 67 13 97 /12 0500 66 13 152/70 100 97 / 0456 68 14 96 12/12 0441 69 20 98 12/12 0426 70 13 97 12/12 0411 79 18 100 12/12 0400 36.9 06/21 0400 71 17 138/68 97 98 06/21 0356 70 14 98 06/21 0341 69 19 98 06/21 0326 70 18 98 06/21 0311 69 16 97 06/21 0300 69 13 139/71 96 99 06/21 0256 69 15 99 06/21 0241 69 16 97 06/21 0226 69 15 98 06/21 0211 68 13 98 06/21 0200 68 10 141/73 101 99 06/21 0156 68 13 97 06/21 0141 67 8 99 12 0131 71 23 134/68 95 100 06/21 0126 71 24 97 12 0111 65 4 98 06/21 0100 Nasal 2 cannula 06/21 0055 36.8 20 06/20 2300 65 17 129/68 88 100 Nasal 2 cannula 06/20 2130 69 17 124/65 84 100 Nasal 2 cannula 06/20 1956 96 Nasal 2 28 cannula 06/20 1935 66 17 125/66 85 100 Nasal 2 cannula 06/20 1800 78 18 131/84 99 100 06/20 1700 Nasal 2 cannula 06/20 1700 36.4 69 13 127/65 85 100 06/20 1535 Nasal 2 cannula 06/20 1535 78 18 125/68 87 100 Nasal 2 cannula 06/20 1436 70 12 110/56 74 100 Nasal 2 cannula 06/20 1330 68 18 121/67 85 100 Nasal 2 cannula 06/20 1230 93 06/20 1224 37.0 67 18 120/56 77 93 Room air 24 hour I O ending at 0700: 06/21 0700 06/20 1900 Intake Total 120.00 56.00 Output Total Balance 120.00 56.00 Intake, IV 120.00 56.00 Number 0 Bowel Movements Number 1 Incontinent Voids Number Voids 1 Patient 80.1 kg Weight Weight Bed scale Measurement Method PATIENT WEIGHT: Weight (lb): Weight (oz): Weight (kg): 80.100 Medications: Active Meds + DC'd Last 24 Hrs Atorvastatin Calcium 20 MG BEDTIME PO Enoxaparin Sodium 80.1 MG Q12HR SUBQ (UNV) Insulin Glargine 5 UNIT BEDTIME SUBQ Ascorbic Acid 500 MG DAILY PO Carvedilol 6.25 MG DAILY PO Duloxetine HCl 20 MG DAILY PO Furosemide 20 MG DAILY PO Levothyroxine Sodium 125 MCG DAILY@0630 PO Prednisone 20 MG DAILY PO Spironolactone 25 MG DAILY PO Budesonide 0.5 MG RTQ12H NEB Zinc Sulfate 220 MG TID PO Famotidine 20 MG BID AC PO Insulin Human Lispro S/SCALE LOW AC HS SUBQ Cholecalciferol 2,000 INTL.UNITS DAILY PO (CKD) Al Hydrox/Mg Hydrox/Simethicone 30 ML Q4H PRN PRN PO Albuterol Sulfate 2 PUFF RTQ4H PRN PRN INH Benzonatate 100 MG Q6H PRN PRN PO Bisacodyl 10 MG ASDIR PRN RECTAL Dextrose/Water 50 ML ASDIR PRN IV Docusate Sodium 100 MG BID PRN PRN PO Hydralazine HCl 10 MG Q4H PRN PRN IV Hydrocodone Bitart/Acetaminophen 1 TAB Q6H PRN PRN PO Labetalol HCl 10 MG Q4H PRN PRN IV Ondansetron HCl 4 MG Q4H PRN PRN IV Trazodone HCl 50 MG BEDTIME PRN PRN PO Heparin Sodium (Porcine) 6,408 UNIT ONCE ONE IV (DC) Heparin Sodium/Dextrose 250 ML ASDIR IV (DCr) Iopamidol 0 .STK-MED ONE IV (DC) Aspirin 324 MG X1ED STA PO (DC) Sodium Chloride 1,000 ML .STK-MED ONE IV (DC) Heparin Sodium (Porcine) 0 .STK-MED ONE IV (DC) Iopamidol 0 .STK-MED ONE .ROUTE (DC) Lidocaine HCl 0 .STK-MED ONE .ROUTE (DC) Physical Exam General appearance: frail, alert, awake Head/Eyes: atraumatic, EOMI ENT: moist mucosal membranes, normal dentition Neck: full range of motion, non-tender Cardiovascular: normal capillary refill, normal heart sounds Respiratory: aerating well, clear to auscultation Abdomen: non-tender, normal bowel sounds Extremities: edema, moves all, normal capillary refill Musculoskeletal: no CVA tenderness, no midline vertebral tend Neuro/HOME HEALTH CARE CASE MANAGER: alert, oriented X 3, CNII-XII intact Skin: abnormal color, dry Results Findings/Data: Laboratory Tests 06/21 06/21 06/20 06/20 06/20 0751 0450 2106 1618 1430 Chemistry Sodium (134 - 147 mmol/L) 135 Potassium (3.4 - 5.0 mmol/L) 4.0 Chloride (100 - 108 mmol/L) 97 L Carbon Dioxide (21 - 32 mmol/L) 36 H Anion Gap (4.0 - 15.0 GAP calc) 2.0 L BUN (7 - 18 MG/DL) 42 H Creatinine (0.6 - 1.0 MG/DL) 1.0 Glomerular Filtr Rate (>60 estGFR) 58 L Glucose (70 - 110 MG/DL) 243 H POC Glucose (70 - 110 mg/dL) 238 H 297 H 293 H Calcium (8.5 - 10.1 MG/DL) 8.5 Phosphorus (2.5 - 4.9 MG/DL) 2.9 Magnesium (1.8 - 2.4 MG/DL) 1.4 L Lactate Dehydrogenase (84 - 246 Unit/L) 271 H Troponin I (0.000 - 0.045 NG/ML) 0.791 *H 06/20 06/20 1430 1244 Chemistry Sodium (134 - 147 mmol/L) 136 Potassium (3.4 - 5.0 mmol/L) 4.5 Chloride (100 - 108 mmol/L) 98 L Carbon Dioxide (21 - 32 mmol/L) 33 H Anion Gap (4.0 - 15.0 GAP calc) 5.0 BUN (7 - 18 MG/DL) 50 H Creatinine (0.6 - 1.0 MG/DL) 1.1 H Glomerular Filtr Rate (>60 estGFR) 52 L Glucose (70 - 110 MG/DL) 250 H Calcium (8.5 - 10.1 MG/DL) 9.0 Total Creatine Kinase (26 - 192 Unit/L) 37 Troponin I (0.000 - 0.045 NG/ML) 0.932 *H Triglycerides (0 - 150 MG/DL) 57 Cholesterol (133 - 200 MG/DL) 80 L LDL Cholesterol Measurd (0 - 129 MG/DL) 34 Non-HDL Cholesterol (<130 mg/dL) 38 HDL Cholesterol (40 - 59 MG/DL) 42 LDL/HDL Ratio (1.48 - 3.22 Avg Ratio) 0.80 L Cholesterol/HDL Ratio (0 RATIO) 1.90 Laboratory Tests 06/21 Coagulation INR (0.8 - 1.2 INR Unit) 1.39 H PTT (Quang) (26 - 35 SECONDS) 160.7 *H 35.2 H 18.0 L PT Patient/Control Mix (9.3 - 12.9 SECONDS) 15.8 H D-Dimer (215 - 500 ng/mLFEU) 4184 *H Laboratory Tests 06/21 1244 Hematology WBC (3.5 - 11.0 K/mm3) 15.4 H 18.1 H RBC (4.70 - 6.10 M/mm3) 3.02 L 3.10 L Hgb (10.4 - 14.9 G/DL) 8.2 L 8.5 L Hct (31.5 - 44.1 %) 26.3 L 27.1 L MCV (84.5 - 98.6 Fl) 87.1 87.4 MCH (27.0 - 34.2 pg) 27.2 27.4 MCHC (31.5 - 34.0 G/DL) 31.2 L 31.4 L RDW (11.5 - 14.5 SD) 15.9 H 15.8 H Plt Count (150 - 450 K/mm3) 352 327 MPV (7.0 - 10.5 fL) 11.10 H 11.70 H Neut % (Auto) (40 - 76 %) 79.1 H Lymph % (Auto) (20.5 - 51.1 %) 9.5 L [place] % (Auto) (1.7 - 9.3 %) 10.1 H Eos % (Auto) (0.0 - 6.0 %) 0.1 Baso % (Auto) (0.0 - 2.0 %) 0.1 Neut # (Auto) (1.8 - 7.6 K/mm3) 12.2 H Lymph # (Auto) (0.6 - 3.2 K/mm3) 1.5 [place] # (Auto) (0.3 - 1.1 K/mm3) 1.6 H Eos # (Auto) (0.0 - 0.4 K/mm3) 0.0 Baso # (Auto) (0.0 - 0.1 K/mm3) 0.0 Abs Immat Gran (auto) (0.00 - 0.03 x10 3/uL) 0.17 H Add Manual Diff (CRITERIA DIFF/SCN) NO Immature Gran % (0.0 - 5.0 %) 1.1 Nucleated RBC % (0.0 - 1.0 /100WBC%) 0.0 Laboratory Tests 06/20 1305 Serology SARS CoV-2 RNA Rapid SHONA (Negative) Positive Radiology data: Recent Impressions: RADIOLOGY - XR CHEST 1 V 06/20 1242 Report Impression - Status: SIGNED Entered: 06/20/2020 1306 IMPRESSION: 1. Patchy bilateral opacities compatible with pneumonia. Impression By: [email or web address] - iRcky Munoz M.D. CAT SCAN - CTA CHEST 06/20 1400 Report Impression - Status: SIGNED Entered: 06/20/2020 1450 IMPRESSION: No large vessel acute emboli suggested. Normal aortic diameter seen. 2 small filling central defects mainly right lower lobe that are surrounded by normal perfusion likely represent old/residual PE findings. Cardiomegaly with small to moderate pericardial effusion. Bilateral pneumonia. Location: U19 Impression By: [email or web address] - Ricky Alegre M.D Diagnosis, Assessment Plan Orders: Procedure Date/time Status PHYSICIAN CONSULT 06/21 1336 Active Consultants: cardiology Code status: do not resuscitate Plan discussed with: patient, consultants, nurse Free Text DxA P Notes Free text DxA P notes: Assessment: Acute atypical chest pain Pulmonary embolus. Chronic versus acute. COVID positive Corticosteroid-induced leukocytosis Cardiomyopathy Essential hypertension Elevated troponin Hyperlipidemia Hypothyroidism Diabetes mellitus type 2 Plan: Intermediate CARE unit admission Inpatient Telemetry Heparin changed to Lovenox Cardiology follows Blood pressure control Droplet isolation Repeat COVID 19 test positive. Carrier. Continue Statin Sliding scale insulin with titration CODE STATUS DNR Guarded prognosis Quality: Gen Med Crit Care Current Medications Current medication review: I attest that the foregoing medication list in the medical record is true, accurate, and complete to the best of my knowledge. at [address] [facility] #: [id number] END OF REPORT [facility] 2020-06-20 15:08:00 [facility] ([facility]) History Physical - Adult REPORT#:[id number] REPORT STATUS: Signed DATE:06/20/20 TIME:1508 PATIENT: LINDA MENEZES UNIT #: [id number] ROOM/BED: [place] [address] : 49 AGE: 70 SEX: F ATTEND: Murtaza Persaud MD ADM AUTHOR: Murtaza Persaud MD * ALL edits or amendments must be made on the electronic/computer document * History of Present Illness HPI Chief complaint: Chest pain PCP: PCP: No Primary or Family Physician HPI: 70-year-old female with history of recent COVID 19 pneumonia, cardiomyopathy, hypertension, hyperlipidemia, hypothyroidism, diabetes mellitus type 2, who [facility] [place] [facility] and was sent to the emergency department for acute onset of chest pain in the middle of her chest, no radiation, sharp, intermittent, lasting minutes, no associated symptoms. In the emergency department, troponin was slightly elevated at the upper level of normal. EKG showed slight abnormalities that were reviewed by cardiology and determine likely related to her cardiomyopathy. Repeat troponin started to come down. Patient is free of chest pain. No need for emergent left heart catheterization at this time. CTA of the chest showed pulmonary embolus that can be determined whether acute or chronic. Patient was started on heparin. She is in the isolation unit due to COVID 19 positive. Past medical history: As stated in HPI Surgical history: Thyroidectomy, hysterectomy, cholecystectomy, bowel obstruction. Social history: Negative 3. Allergies: No known drug allergies. CODE STATUS: DNR discussed with patient and documentation available. Family history: Significant for heart disease and stroke in her father. History Smoking status for patients 13 years old or older: Never Smoker Medication/Allergy-Vaccine Hx Allergies: Coded Allergies: No Known Allergies (06/20/20) Ambulatory status: Walker Review of Systems All systems rev neg: except as marked Physical Exam VS/I O Vital Signs: Date Time Temp Pulse Resp B/P B/P Pulse O2 O2 Flow FiO2 Mean Ox Delivery Rate 06/20 1436 70 12 110/56 74 100 Nasal 2 cannula 06/20 1330 68 18 121/67 85 100 Nasal 2 cannula 06/20 1230 93 06/20 1224 37.0 67 18 120/56 77 93 Room air PATIENT WEIGHT: Weight (lb): Weight (oz): Weight (kg): 80.100 General appearance: frail, alert, awake Head/Eyes: atraumatic, EOMI ENT: moist mucosal membranes, normal dentition Neck: full range of motion, non-tender Cardiovascular: normal capillary refill, regular rate rhythm Respiratory: clear to auscultation, no tenderness Abdomen/GI: active bowel sounds, soft Extremities: edema, moves all, normal capillary refill Musculoskeletal: full range of motion, no CVA tenderness Neuro/HOME HEALTH CARE CASE MANAGER: alert, oriented X 3 Skin: pale, dry Results Findings/Data: Laboratory Tests: 06/20 06/20 1305 1244 Chemistry Sodium (134 - 147 mmol/L) 136 Potassium (3.4 - 5.0 mmol/L) 4.5 Chloride (100 - 108 mmol/L) 98 L Carbon Dioxide (21 - 32 mmol/L) 33 H Anion Gap (4.0 - 15.0 GAP calc) 5.0 BUN (7 - 18 MG/DL) 50 H Creatinine (0.6 - 1.0 MG/DL) 1.1 H Glomerular Filtr Rate (>60 estGFR) 52 L Glucose (70 - 110 MG/DL) 250 H Calcium (8.5 - 10.1 MG/DL) 9.0 Total Creatine Kinase (26 - 192 Unit/L) 37 Troponin I (0.000 - 0.045 NG/ML) 0.932 *H Coagulation INR (0.8 - 1.2 INR Unit) 1.39 H PTT (Cannon) (26 - 35 SECONDS) 18.0 L PT Patient/Control Mix (9.3 - 12.9 SECONDS) 15.8 H Hematology WBC (3.5 - 11.0 K/mm3) 18.1 H RBC (4.70 - 6.10 M/mm3) 3.10 L Hgb (10.4 - 14.9 G/DL) 8.5 L Hct (31.5 - 44.1 %) 27.1 L MCV (84.5 - 98.6 Fl) 87.4 MCH (27.0 - 34.2 pg) 27.4 MCHC (31.5 - 34.0 G/DL) 31.4 L RDW (11.5 - 14.5 SD) 15.8 H Plt Count (150 - 450 K/mm3) 327 MPV (7.0 - 10.5 fL) 11.70 H Serology SARS CoV-2 RNA Rapid SHONA (Negative) Positive Radiology data: Recent Impressions: RADIOLOGY - XR CHEST 1 V 06/20 1242 Report Impression - Status: SIGNED Entered: 06/20/2020 1306 IMPRESSION: 1. Patchy bilateral opacities compatible with pneumonia. Impression By: [email or web address] - Ricky Munoz M.D. CAT SCAN - CTA CHEST 06/20 1400 Report Impression - Status: SIGNED Entered: 06/20/2020 1450 IMPRESSION: No large vessel acute emboli suggested. Normal aortic diameter seen. 2 small filling central defects mainly right lower lobe that are surrounded by normal perfusion likely represent old/residual PE findings. Cardiomegaly with small to moderate pericardial effusion. Bilateral pneumonia. Location: U19 Impression By: [email or web address] - Ricky Alegre M.D Diagnosis, Assessment Plan Consultants: cardiology Plan discussed with: patient, nurse Code Status/Resusc. Discussion Resuscitation discussion: Discussed with: patient Code status: do not resuscitate Free Text DxA P Notes Free Text DxA P Notes: Assessment: Acute atypical chest pain Pulmonary embolus. Chronic versus acute. COVID positive Corticosteroid-induced leukocytosis Cardiomyopathy Essential hypertension Elevated troponin Hyperlipidemia Hypothyroidism Diabetes mellitus type 2 Plan: Intermediate CARE unit admission Inpatient Telemetry Heparin Cardiology consultation Blood pressure control Droplet isolation Repeat COVID 19 test Statin Sliding scale insulin with titration CODE STATUS DNR Guarded prognosis Quality: Gen Med Crit Care Current Medications Current medication review: I attest that the foregoing medication list in the medical record is true, accurate, and complete to the best of my knowledge. at [address] [facility] #: [id number] END OF REPORT [facility] 2020-06-20 13:24:00 [facility] ([facility]) EMERGENCY PROVIDER REPORT REPORT#:[id number] REPORT STATUS: Signed DATE:06/20/20 TIME:1324 PATIENT: LINDA MENEZES UNIT #: [id number] ROOM/BED: 310-1 : 49 AGE: 70 SEX: F PCP PHYS: No Primary or Family Physician SERVICE AUTHOR: Nito Shipley MD * ALL edits or amendments must be made on the electronic/computer document * HPI-Chest Pain 40 and Over General Initial Greet Date/Time 06/20/20 1225 Presentation Chief Complaint Chest pain Sudden in Onset? No Free Text HPI Notes Free Text HPI Notes Patient with history of hypertension, CAD and CHF, recent EF 25% per patient. Diagnosed with COVID-19 4 days ago. Reportedly, patient developed chest pain and shortness of breath today. 10 out of 10 chest pain in route per EMS. Given nitro in route with improvement of symptoms. On arrival, patient found to be with ST elevation in lead I and aVL and reciprocal changes in inferior leads. Code STEMI called right away. Denies other exacerbating or alleviating factors. Denies other associated symptoms. Reports the pain is moderate and aching in nature. Denies migration or radiation. Review of Systems ROS Statements All systems rev neg except as marked. Past Medical History - Adult Stated Complaint CHEST PAIN, COVID + Allergies Coded Allergies: No Known Allergies (06/20/20) Home Medications Reported Medications CARVEDILOL (COREG) 6.25 MG PO DAILY predniSONE 20 MG PO DAILY ATORVASTATIN (LIPITOR) 20 MG PO DAILY MELATONIN 3 MG PO BEDTIME LEVOTHYROXINE (SYNTHROID) 125 MCG PO DAILY SPIRONOLACTONE (ALDACTONE) 25 MG PO DAILY traMADol (ULTRAM) 50 MG PO Q6H INSULIN GLARGINE (LANTUS) 5 UNITS SUBQ BEDTIME DULoxetine DR (CYMBALTA) 20 MG PO DAILY FUROSEMIDE (LASIX) 20 MG PO DAILY levoFLOXacin (LEVAQUIN) 500 MG PO DAILY INSULIN NPH/REG INSULIN HUM (NovoLIN 70/30) 5 UNITS SUBQ BID AC ASCORBIC ACID (VITAMIN C) 500 MG PO DAILY ZINC SULFATE (ORAZINC) 220 MG PO TID Smoking status for patients 13 years old or older: Never Smoker Physical Exam Vital Signs Vital Signs First Documented: Result Date Time Pulse Ox 93 06/20 1224 B/P 120/56 06/20 1224 B/P Mean 77 06/20 1224 O2 Delivery Room air 06/20 1224 Temp 37.0 06/20 1224 Pulse 67 06/20 1224 Resp 18 06/20 1224 O2 Flow Rate 2 06/20 1330 Last Documented: Result Date Time Pulse Ox 100 06/20 1436 B/P 110/56 06/20 1436 B/P Mean 74 06/20 1436 O2 Delivery Nasal cannula 06/20 1436 O2 Flow Rate 2 06/20 1436 Pulse 70 06/20 1436 Resp 12 06/20 1436 Temp 37.0 06/20 1224 Review of Vital Signs Reviewed Focused PE General/Const General/Const Awake, Alert Eyes Eyes PERRL MS Neck Neck Supple, Full range of motion, No swelling, Non-tender, No masses, No JVD Resp/Chest Respiratory/Chest Breath sounds NL, Breath sounds = bilat, No respiratory distress, No rales, No rhonchi, No wheezing, No chest tenderness Cardiovascular Cardiovascular Heart rate NL, Regular rhythm, Heart sounds NL, No murmurs, Peripheral circulation NL, Pulses = bilaterally, No gross BP differential Abdomen/GI Abdomen/GI Soft, Non-tender, No guarding, No rebound MS Back Back Inspection NL, Non-tender, No CVA tenderness MS Lower Extrem Lower Ext/Pelvis/MS Inspection NL, No swelling, Non-tender, No erythema, No deformity, Neurologic intact, Vascular intact, No edema Skin Skin Color NL, Warm, Dry, Turgor NL Neurologic Neurologic Oriented X3, Speech NL, No motor deficits, No sensory deficits Psychiatric Psychiatric Affect NL, Mood NL, Thought content NL Interpretation Diagnostics Lab Results Interpretation Results Laboratory Tests 06/20/20 1244: [Embedded Image Not Available] Laboratory Tests: 06/20 06/20 06/20 1430 1430 1305 Chemistry Troponin I (0.000 - 0.045 NG/ML) 0.791 *H Triglycerides (0 - 150 MG/DL) 57 Cholesterol (133 - 200 MG/DL) 80 L LDL Cholesterol Measurd (0 - 129 MG/DL) 34 Non-HDL Cholesterol (<130 mg/dL) 38 HDL Cholesterol (40 - 59 MG/DL) 42 LDL/HDL Ratio (1.48 - 3.22 Avg Ratio) 0.80 L Cholesterol/HDL Ratio (0 RATIO) 1.90 Serology SARS CoV-2 RNA Rapid SHONA (Negative) Positive 06/20 1244 Chemistry Sodium (134 - 147 mmol/L) 136 Potassium (3.4 - 5.0 mmol/L) 4.5 Chloride (100 - 108 mmol/L) 98 L Carbon Dioxide (21 - 32 mmol/L) 33 H Anion Gap (4.0 - 15.0 GAP calc) 5.0 BUN (7 - 18 MG/DL) 50 H Creatinine (0.6 - 1.0 MG/DL) 1.1 H Glomerular Filtr Rate (>60 estGFR) 52 L Glucose (70 - 110 MG/DL) 250 H Calcium (8.5 - 10.1 MG/DL) 9.0 Total Creatine Kinase (26 - 192 Unit/L) 37 Troponin I (0.000 - 0.045 NG/ML) 0.932 *H Coagulation INR (0.8 - 1.2 INR Unit) 1.39 H PTT (Cannon) (26 - 35 SECONDS) 18.0 L PT Patient/Control Mix (9.3 - 12.9 SECONDS) 15.8 H Hematology WBC (3.5 - 11.0 K/mm3) 18.1 H RBC (4.70 - 6.10 M/mm3) 3.10 L Hgb (10.4 - 14.9 G/DL) 8.5 L Hct (31.5 - 44.1 %) 27.1 L MCV (84.5 - 98.6 Fl) 87.4 MCH (27.0 - 34.2 pg) 27.4 MCHC (31.5 - 34.0 G/DL) 31.4 L RDW (11.5 - 14.5 SD) 15.8 H Plt Count (150 - 450 K/mm3) 327 MPV (7.0 - 10.5 fL) 11.70 H Recent Impressions: RADIOLOGY - XR CHEST 1 V 06/20 1242 Report Impression - Status: SIGNED Entered: 06/20/2020 1306 IMPRESSION: 1. Patchy bilateral opacities compatible with pneumonia. Impression By: [email or web address] - Ricky Munoz M.D. CAT SCAN - CTA CHEST 06/20 1400 Report Impression - Status: SIGNED Entered: 06/20/2020 1450 IMPRESSION: No large vessel acute emboli suggested. Normal aortic diameter seen. 2 small filling central defects mainly right lower lobe that are surrounded by normal perfusion likely represent old/residual PE findings. Cardiomegaly with small to moderate pericardial effusion. Bilateral pneumonia. Location: [facility]19 Impression By: Ban - Ricky Alegre M.D ECG #1 Interpretation Text/Dict Note EKG performed at 1227. Ventricular rate of 68 bpm. Normal sinus rhythm, normal axis, ST elevation in leads I and aVL. T wave inversions in the inferior leads and lateral leads. ECG #2 Interpretation Text/Dict Note EKG performed at 1434. Ventricular rate is 70 bpm. Normal sinus rhythm, ST elevation in leads I and aVL. T wave inversions in the inferior and lateral leads. Re-Evaluation MDM Free Text MDM Notes Free Text MDM Notes Chest pain with elevated troponin and ST elevation. No STEMI per cardiology. CTA pending. Will start on heparin drip in ED and continue to monitor. Admitted to hospitalist. Agrees with plan and disposition. Stable and comfortable at time of disposition. Plan explained and strict return precautions given. CODE STATUS while in ER was DNR. Goals of care were discussed in the ED with patient and/or family and the hospitalist was updated on admission of CODE STATUS in the ER. Re-Evaluation/Progress #1 Time of Re-Eval 1352 Re-Eval Status Improved ED Course Medication(s) Ordered Medication(s) Ordered: Autonomic Drugs Sig/Lacey Start time Last Medication Dose Route Stop Time Status Admin Albuterol Sulfate 2 PUFF RTQ4H PRN PRN 06/20 1515 AC INH 07/04 1514 Cardiovascular Drugs Sig/Lacey Start time Last Medication Dose Route Stop Time Status Admin Atorvastatin Calcium 20 MG BEDTIME 06/21 2100 AC 06/23 PO 07/21 2058 2143 Spironolactone 25 MG DAILY 06/21 900 AC 06/23 PO 07/21 0859 0932 Hydralazine HCl 10 MG Q4H PRN PRN 06/20 1515 AC IV 07/20 1514 Labetalol HCl 10 MG Q4H PRN PRN 06/20 1515 AC IV 07/20 1514 Central Nervous System Agents Sig/Lacey Start time Last Medication Dose Route Stop Time Status Admin Duloxetine HCl 20 MG DAILY 06/21 900 AC 06/23 PO 07/21 0859 0931 Hydrocodone Bitart/ 1 TAB Q6H PRN PRN 06/20 1515 AC 06/23 Acetaminophen PO 06/30 151 0532 Trazodone HCl 50 MG BEDTIME PRN PRN 06/20 1515 AC PO 07/20 1514 Electrolytic, Caloric, And Beryl Sig/Lacey Start time Last Medication Dose Route Stop Time Status Admin Furosemide 20 MG DAILY 06/21 900 AC 06/23 PO 07/21 0859 0932 Zinc Sulfate 220 MG TID 06/20 1700 AC 06/23 PO 07/20 1659 1705 Dextrose/Water 50 ML ASDIR PRN 06/20 1515 AC IV 07/20 1514 Eye, Ear, Nose And Throat (Een Sig/Lacey Start time Last Medication Dose Route Stop Time Status Admin Budesonide 0.5 MG RTQ12H 06/20 2000 AC 06/23 NEB 07/04 Gastrointestinal Drugs Sig/Lacey Start time Last Medication Dose Route Stop Time Status Admin Famotidine 20 MG BID AC 06/20 1630 AC 06/23 PO 07/20 1629 1705 Al Hydrox/Mg Hydrox/ 30 ML Q4H PRN PRN 06/20 1515 AC Simethicone PO 07/20 1514 Bisacodyl 10 MG ASDIR PRN 06/20 1515 AC RECTAL 07/20 1514 Docusate Sodium 100 MG BID PRN PRN 06/20 1515 AC PO 07/20 1514 Ondansetron HCl 4 MG Q4H PRN PRN 06/20 1515 IV 07/20 1514 Hormones And Synthetic Substit Sig/Lacey Start time Last Medication Dose Route Stop Time Status Admin Levothyroxine Sodium 125 MCG DAILY@0630 06/21 900 AC 06/24 PO 07/21 0859 0709 Prednisone 20 MG DAILY 06/21 900 AC 06/23 PO 07/21 0859 0931 Respiratory Tract Agents Sig/Lacey Start time Last Medication Dose Route Stop Time Status Admin Benzonatate 100 MG Q6H PRN PRN 06/20 1515 AC PO 08/19 1514 Vitamins Sig/Lacey Start time Last Medication Dose Route Stop Time Status Admin Ascorbic Acid 500 MG DAILY 06/21 900 AC 06/23 PO 07/21 0859 0932 Cholecalciferol 2,000 INTL.UNITS DAILY 06/20 1520 CKD 06/23 PO 07/20 1519 0931 Consultation Consultation Referral/Consult Name Ced Watkins MD Rn Staffing Called Cardiology Requested Call Time 1227 Requested Call Date 06/20/20 Call Returned Call returned Call Returned Time 1227 Call Returned Date 06/20/20 Rn Staffing Will see patient, Agrees with eval, Agrees with plan Free Text Consult Notes Reports that symptoms are unlikely related to a STEMI. Recommends heparin drip and CTA of the chest. Patient Discharge Departure Vital Signs/Condition Vital Signs First Documented: Result Date Time Pulse Ox 93 06/20 1224 B/P 120/56 06/20 1224 B/P Mean 77 06/20 1224 O2 Delivery Room air 06/20 1224 Temp 37.0 06/20 1224 Pulse 67 06/20 1224 Resp 18 06/20 1224 O2 Flow Rate 2 06/20 1330 Last Documented: Result Date Time Pulse Ox 100 06/20 1436 B/P 110/56 06/20 1436 B/P Mean 74 06/20 1436 O2 Delivery Nasal cannula 06/20 1436 O2 Flow Rate 2 06/20 1436 Pulse 70 06/20 1436 Resp 12 06/20 1436 Temp 37.0 06/20 1224 All vital signs available at the time of this entry have been reviewed. Condition Guarded Clinical Impression Clinical Impression Primary Impression: NSTEMI (non-ST elevated myocardial infarction) Secondary Impressions: COVID-19, PE (pulmonary thromboembolism), Pneumonia Disposition Decision Admit Admit Physician Name Murtaza Persaud MD Admit Physician Hospitalist Request Time 1559 Request Date 06/20/20 )( Admission Accepts Yes )( Accepted Time 1559 )( Accepted Date 06/20/20 Call Information will see patient, agrees with eval, agrees with plan Discharge/Care Plan Counseled Regarding Diagnosis, Lab results, Imaging studies, Need for admission, Need for follow-up, When to return to ED Admit Note I have spoken with the patient and/or caregivers. I have explained the patient's condition, diagnoses and treatment plan based on the information available to me at this time. I have answered the patient's and/or caregiver's questions and addressed any concerns. The patient and/or caregivers have as good an understanding of the patient's diagnosis, condition and treatment plan as can be expected at this point. The patient has been stabilized within the capability of the emergency department. The patient will be transported for further care and management or will be moved to an observation or inpatient service. I have communicated with the staff or medical practitioner taking over this patient's care. Critical Care Time Spent (minutes): 50 Services Performed Patient management by me, Time spent at bedside, Reviewing test results, Reviewing imaging, Discussing patient care, Documentation in record Separately billable procedures excluded from time. Patient was critically ill due to: NSTEMI, PE, pneumonia with hypoxia My treatment and management were: IV resuscitation, IV anticoagulation with heparin, reassessments in ED. CC Note 1 Total critical care time [50] minutes. Total critical care time documented does not include time spent on separately billed procedures or the services of residents, students, nurses or physician assistants. I personally saw and examined the patient. I have reviewed all diagnostic interpretations and treatment plans as written. I was present for the dodge portions of any procedures performed and the inclusive time noted in any critical care statement. Critical care time includes patient management by me, time spent at the patients bedside, time to review lab and imaging results, discussing patient care, documentation in the medical record, and time spent with the family or caregiver. at [address] [facility] #: [phone] END OF REPORT [facility]
[2024-10-24] MEDS ORDERED: IPRATROPIUM BROM 0.5MG/2.5ML NEB PRN (15:48)
[2024-10-24] MEDS ORDERED: ALBUTEROL 2.5 MG/3 ML NEB SOL NEB PRN (15:48)
[2024-10-24] MEDS ORDERED: DIPHENOX/ATROP SULF 1 TAB PO PRN (15:53)
[2024-10-24] MEDS ORDERED: LORATADINE 10 MG TAB PO PRN (15:54)
[2024-10-24] MEDS ORDERED: GLUCAGON 1 MG/VIAL IM PRN (15:55)
[2024-10-24] MEDS ORDERED: D10W 125 ML IV PRN (15:55)
[2024-10-24] MEDS ORDERED: DOCUSATE NA/SENNA CONC 1 TAB PO PRN (15:57)
[2024-10-24] MEDS ORDERED: POLYETHYL GLY 3350 17 GM/DOSE PO PRN (15:58)
[2024-10-24] MEDS: HYDROCODONE/APAP 5/325 MG TAB PO PRN (16:51)
[2024-10-24] MEDS: INSULIN REGULAR (HUMAN) 100 UNIT/ML SQ SCH (16:52)
[2024-10-24 17:03] LABS: Specific Gravity 1.014 (1.005-1.030); Urine Bilirubin NEGATIVE (Negative); Urine Blood Negative (Negative); Urine Clarity Clear (Clear); Urine Color Light-Yellow (Yellow); Urine Glucose 4+ (Over) (Negative); Urine Ketones NEGATIVE (Negative); Urine Microscopic Reflex YN NO UMIC; Urine Nitrite NEGATIVE (Negative); Urine Protein NEGATIVE (Negative); Urine Urobilinogen Normal (Normal)
[2024-10-24] MEDS ORDERED: INSULIN GLARGINE 100 UNIT/ML SQ SCH (20:00)
[2024-10-24] MEDS: DIVALPROEX ER 250 MG TAB PO SCH (20:30)
[2024-10-24] MEDS: DULOXETINE 30 MG CAP PO SCH (20:30)
[2024-10-24] MEDS: INSULIN GLARGINE 100 UNIT/ML SQ SCH (20:30)
[2024-10-24] MEDS: DOCUSATE NA 100 MG CAP PO SCH (20:31)
[2024-10-24] MEDS: carvediloL 6.25 MG TAB PO SCH (20:31)
[2024-10-24] MEDS: GABAPENTIN 300 MG CAP PO SCH (20:31)
[2024-10-24] MEDS: ATORVASTATIN 10 MG TAB PO SCH (20:31)
[2024-10-24] MEDS: APIXABAN 5 MG TABLET PO SCH (20:31)
[2024-10-24] MEDS: MELATONIN 5 MG TABLET PO SCH (20:32)
[2024-10-25] MEDS: BISACODYL 10 MG RECTAL SUPP PR PRN (05:06)
[2024-10-25 06:22] LABS: Absolute Lymphocytes (CBC) 2.6 K/uL (0.7-4.9); Absolute Monocytes 1.2 K/uL (0.1-1.3); Basophils % 0.5 % (0-1.3); Hematocrit 24.1 % (36.0-45.0); Hemoglobin 8.1 g/dL (12.0-15.0); Lymphocytes % 37.8 % (15.3-44.8); MCH 30.5 pg (27.0-35.0); MCHC 33.5 g/dL (32.0-36.0); MCV 90.8 fL (80-100); MPV 9.2 fL (7.6-11.3); Monocytes % 18.1 % (3.3-12.3); Neutrophils % 43.6 % (41.7-73.7); Nucleated Red Blood Cells % 0.1 % (0-0); Platelets 220 thou/uL (152-406); RBC Red Blood Cell Count 2.65 M/uL (3.86-4.86); Red Cell Distribution Width 16.7 % (12.1-15.2)
[2024-10-25] MEDS ORDERED: LEVOTHYROXINE SOD 0.112 MG TAB PO SCH (06:30)
[2024-10-25 06:44] LABS: Albumin 2.4 g/dL (3.4-5.0); Anion Gap 9.1 mEq/L (5.0-15.0); Magnesium 1.9 mg/dL (1.6-2.4); Potassium 5.1 mEq/L (3.5-5.1); Prealbumin 16.4 mg/dL (20-40)
[2024-10-25] MEDS: PANTOPRAZOLE 40MG TABLET PO SCH (07:11)
[2024-10-25] MEDS: LEVOTHYROXINE SOD 0.112 MG TAB PO SCH (07:11)
[2024-10-25] MEDS: LEVOTHYROXINE SOD 0.025 MG TAB PO SCH (07:11)
[2024-10-25] MEDS: DULOXETINE 30 MG CAP PO SCH ×2 (08:00→10:31)
[2024-10-25] MEDS: EMPAGLIFLOZIN 10 MG PO SCH (08:00)
[2024-10-25] MEDS: FE SULF/FA/VIT B COMP & C TAB PO SCH (08:04)
[2024-10-25] MEDS: DIVALPROEX ER 250 MG TAB PO SCH (08:04)
[2024-10-25] MEDS: lisinopriL 5 MG TAB PO SCH (08:05)
[2024-10-25] MEDS: METFORMIN HCL 500 MG TAB PO SCH (08:05)
[2024-10-25] MEDS: FUROSEMIDE 20 MG TABLET PO SCH (08:06)
[2024-10-25] MEDS: allopurinoL 100 MG TAB PO SCH (08:06)
[2024-10-25] MEDS: FERROUS SULFATE 325 MG TAB PO SCH (08:07)
[2024-10-25] MEDS: POLYETHYL GLY 3350 17 GM/DOSE PO SCH (08:07)
[2024-10-25] MEDS: FLUTICASONE 50MCG NASAL SPRAY NAS SCH (08:33)
[2024-10-25] MEDS: methocarbamoL 500 MG TAB PO PRN (10:30)
[2024-10-25] MEDS: SPIRONOLACTONE 25 MG TABLET PO SCH (10:31)
[2024-10-25] MEDS: carvediloL 6.25 MG TAB PO SCH (10:31)
[2024-10-25] MEDS: LIDOCAINE 4% PATCH TOP SCH (13:29)
--- NOTE | 2024-10-25 14:44 | RAD REPORT ---
EXAM: XR of the abdomen HISTORY: Abdominal pain constipation COMPARISON: None FINDINGS: XR of the abdomen shows a nonspecific, nonobstructive bowel gas pattern. Significant consti pation. No suspicious calcifications are seen. Proximal left femoral hardware. Lower thoracic vertebroplasty. IMPRESSION: Prominent constipation.
[2024-10-25] MEDS ORDERED: FLEET ENEMA ADULT PR PRN (19:05)
[2024-10-25] MEDS: TRAMADOL HCL 50 MG TAB PO PRN (19:20)
[2024-10-25] MEDS: DOCUSATE NA/SENNA CONC 1 TAB PO SCH (20:21)
[2024-10-25] MEDS: INSULIN GLARGINE 100 UNIT/ML SQ SCH (20:21)
[2024-10-25] MEDS: MAGNESIUM OXIDE 400 MG TAB PO SCH (20:22)
[2024-10-25] MEDS: GABAPENTIN 300 MG CAP PO SCH (20:22)
[2024-10-25] MEDS: MELATONIN 5 MG TABLET PO SCH (20:23)
[2024-10-25] MEDS: GLUCERNA SHAKE 237 ML CAN PO SCH (20:23)
--- NOTE | 2024-10-25 21:12 | RAD REPORT ---
EXAMINATION: XR LEFT HIP CLINICAL INDICATION: . post op hip surgery TECHNIQUE: Multiple views of the left hip were obtained. COMPARISON: No prior exam. FINDINGS: Intramedullary cony is present in the femur. Skin valente are present laterally. No unexpec viktoria postoperative finding.
[2024-10-25] MEDS: LACTULOSE 20 GM/30 ML UCUP PO PRN (21:36)
[2024-10-26] MEDS: CODEINE 30MG/APAP 300MG TAB PO PRN (00:07)
--- NOTE | 2024-10-26 00:23 | HP ---
Date of Admission: 10/24/2024 Time Of Service: 1 p.m. Chief Complaint: Fell, broke left hip. History Of Present Illness: Ms. Menezes is a 74-year-old patient with atrial fibrillation, conges tive heart failure, chronic kidney disease, dyslipidemia, prior myocardial infarction, obstructive sl eep apnea, type 2 diabetes mellitus, who resides at [facility] and was independent in terms of mobilization, ambulation with a wheelchair and taking care of activities of daily living. However, over about a 6-month period, she demonstrated significant decline in her capacity to mobil ize, excise good judgment due to cognitive decline and dementia. On October 18, while ambulating witho ut her assistive device, she fell on the left side and developed severe pain and was unable to bear w eight. She was taken to [facility], where imaging revealed a closed fracture of the neck of the l eft femur. She was transferred to [facility] for higher level of care. On October 19, she underwe nt closed reduction and intramedullary cony fixation of the left femur fracture. Postoperatively, her course was complicated by hypotension requiring supportive management with fluids. She had a signif icant drop in hemoglobin down to 6.3 and received 2 units of packed red blood cells. Furthermore, sh e required multimodal pain management including [place], fentanyl, and muscle relaxants. Furthermore, she had significant shortness of breath postoperatively, but was able to overcome that with incentive spirometry and did not require oxygen supplementation. Postoperatively, she is at a weightbearing a s tolerated status. She was evaluated by therapy service and found to require maximal assistance for bed mobilization, moderate assistance for sit to stand and to be able to ambulate. She had signific ant pain and she was weightbearing and only was able to ambulate very short distances with small step s and shuffling gait. She did require supervision for upper and lower body dressing and maximum assi stance for lower body dressing, toileting, and donning and doffing of footwear. Compared to her base line level of functioning, she has significant decline. As a result of that and her comorbid conditi ons, which require close monitoring, she is admitted to the inpatient rehabilitation unit for physica l, occupational, and speech therapy along with close management of her comorbid conditions. If she i s to be discharged home, chances are although she is in a facility, she is less likely to recover wel l and thrive, and therefore, admission to inpatient rehabilitation units is necessary at this point t o help her recover and return to her prior level of functioning and reduce the risk of rehospitalizat ion. Past Medical History: As noted including atrial fibrillation, congestive heart failure, chronic kidn ey disease, dyslipidemia, essential hypertension, gastroesophageal reflux disease, major depression, obstructive sleep apnea, diabetes mellitus type 2. Allergies: NO KNOWN DRUG ALLERGIES. Current Medications: Tylenol No. 3 every 6 hours as needed, albuterol nebulizer 2.5 mg every 6 hours as needed, allopurinol 100 mg daily, Eliquis 5 mg twice daily, atorvastatin 10 mg at bedtime. She h as Dulcolax 10 mg per rectum as needed, Coreg 6.25 mg twice daily, Depakote Extended Release __ mg in the morning and 500 mg at bedtime, duloxetine 30 mg twice daily, Glucerna 237 mL twice daily , Lasix 20 mg daily, gabapentin 600 mg twice daily. She has ipratropium nebulizer 0.5 mg nebulizer e very 6 hours as needed; lactulose 20 g twice daily; Synthroid 0.112 mg daily; lidocaine patch, now cardoza s 2 in the left hip area; Prinivil 2.5 mg daily; Claritin 10 mg daily; magnesium oxide 400 mg twice d aily; melatonin 3 mg at bedtime; metformin 1000 mg twice daily; Robaxin 500 mg every 6 hours as neede d; Protonix 40 mg daily; and tramadol has been scheduled at 50 mg in the morning. She has Aldactone 25 mg daily as well. Laboratory Studies: White blood cell count 6.9, hemoglobin 8.1, platelets 220. Sodium 139, potassiu m 5.1, chloride 102, carbon dioxide 33, BUN 43, creatinine 1.32, glucose ranged from 143 to 165. Hem oglobin A1c 6.5. Calcium 10.4. Magnesium 1.9. Albumin 2.4, prealbumin 16.4. Her urinalysis done o n 10/24/2024 shows 4+ glucose, otherwise unremarkable. X-ray/imaging: Knee, ankle, tibia-fibular examination after falling shows comminuted nondisplaced le ft proximal femur fracture of the neck and that was on 10/18/2024. No acute osseous abnormalities in the knees, ankles, tibia, and fibula. CT trauma of the head and spine showed no acute intracranial abnormalities and no cervical unexpected findings or fractures. Family History: Noncontributory. Social History: As noted, she does reside in the [facility]. Review of Systems: She reports some significant pain in the left hip about 8/10. She was in bed while reporting that pa in. However, it is not clear as her affect does not necessarily match the pain; however, she is bein g treated as though the pain is at that level. She did indicate with ambulation it perhaps got to ab out a 9/10 in the left hip. Otherwise, the left foot had no significant edema. The calf had no tend erness to palpation on the left. In terms of her ability to oxygenate, she is not requiring any oxyg en via nasal cannula. She is not short of breath. She has poor hearing and requires assistive devic e for hearing, and once that is in place, she is able to hear well, but she does read lips as well if she does not have her assistive device for hearing in place. Otherwise, normocephalic, atraumatic. Sclerae anicteric. Oropharynx pink and moist. Neck is supple. Chest is clear. No edema or cyanos is noted. Current Level Of Functioning: Her eating is independent, grooming supervision, dependent for bathing , maximal assistance for upper body dressing, supervision for lower body dressing, maximum assistance for donning and doffing footwear. Her toileting at the maximum assistance level. Transfer from bed to wheelchair or chair, max assist. Ambulation, she just walked 1 foot and was dependent. In terms of vitals, she has blood pressure 129/67, pulse 79, respiratory rate 16, temperature 97.2, o xygen saturation 100%. As noted, no significant swelling in the lower extremity on the left, right, and upper extremities either, and she did not have any pain to palpation around the surgical site. H owever, she does have 2 pain patches bracketing the area and an adjustment to the gabapentin was made to help manage the pain as the patient did mention significant pain even while at rest. Assessment And Plan: Ms. Menezes is a 74-year-old patient admitted to the inpatient rehabilitatio n unit with impairment category 07, fracture of the left lower extremity. Impairment group code is 0 8.11, unilateral hip fracture. Etiologic diagnosis: A comminuted nondisplaced left proximal femur n twan fracture, status post intramedullary cony fixation. Comorbidities: Atrial fibrillation, hyperten corey, congestive heart failure, chronic kidney disease, gastroesophageal reflux disease, major depres corey, obstructive sleep apnea, type 2 diabetes mellitus, decreased mobility, decreased physical funct ioning. Plan: She will have physical, occupational, and speech therapy. There is also mention of possible c ognitive impairment and therapy will be 3-1/2 hours, 5 of 7 days. We will continue addressing diabet es mellitus with multiple modality treatments. She does have simply insulin on board. She has metfo rmin as well. We will use allopurinol for gout. We will use Lipitor for dyslipidemia, Coreg for blo od pressure control. She has Lasix and Aldactone for fluid management. We will continue with schedu led tramadol for pain and Tylenol No. 3 with regular Tylenol as well for management of pain. Comorbidities That Are Impacting Rehabilitation: There is a possibility that she has cognitive impai rment. She will be assessed by Speech Pathology and will work on strategies for improving memory. S o, she will have speech therapy. There is indication of cognitive impairment and perhaps led to poor judgment where she ambulated without the rolling walker leading to a fall and strict fall precaution s to be adhered to. If impulsivity is noted, a chair and bed alarm may be in place. When ambulating , gait belt. At all times, a wheelchair following as she ambulates with weightbearing as tolerated s tatus using a 2-wheeled walker at all times. Additionally, her oxygenation, blood pressure, risk for deep vein thrombosis be continuously addressed. Rehab Specific Plan: Ms. Menezes will have physical, occupational, and speech therapy as noted 3- 1/2 hours, 5 of 7 days to improve her ability to transfer from bed to chair to toilet to shower, to b e able to dress upper and lower body, to perform activities of daily living, and to make safe decisio ns regarding mobilization, transfers and to reduce her risk of additional injury. Ms. Menezes has an understanding of the process of admission to inpatient rehabilitation unit and how she will benefit from physical, occupational, and speech therapy. She will have 24 hours a day, 7 days a week skilled rehabilitation nursing, daily physician evaluation and management, and [facility] for [facility] planning, home equipment. Continue with therapy and for physician followup with the orthopedic surgeon. Barriers To Discharge: Potential barriers may be cognitive impairment and safety awareness issues, jing haney will be worked on. If she is unable to make safe decisions, recommendation will be for her to b e in shelter or in a facility with a memory care unit for her to be able to do well _ and while receiving therapy. However, the goal is to go back to [facility] if she is able to manage her issues of awareness, and risks of falling and further injury. Length Of Stay: About 14 days. Disposition: Expected to be back home to her long-term care facility and continue therapy. Prognosis: Good. Code Status: Full code. Rehab Specific Goals: 1. Become independent with upper body dressing, donning and doffing footwear. 2. Ambulate 250 feet with a rolling walker with modified independence. 3. Mobilize the wheelchair 250 feet with modified independence. 4. Go up and down 10 steps with modified independence with bilateral handrails. 5. Perform all activities of daily living and again upper and lower body dressing, donning of footwea r. 6. Make safe decisions in terms of her mobilization, managing medications, and physician followup. The above goals were reviewed Ms. Menezes and she is in agreement and did have an oppor tunity to ask questions regarding her goals. By signing this document, I acknowledge I performed a full physical examination on Ms. Menezes no later than 24 hours after her admission to the inpatient rehabilitation unit and determined that she is able to tolerate the above course of treatment at an intensive level for a reasonable period of ti me. A detailed individualized plan of care for her will be completed by hospital day 4 based on the preadmission screen, history and physical and therapy evaluations. ALINE Voice ID: [id number]
[2024-10-26] MEDS: TRAMADOL HCL 50 MG TAB PO SCH (07:19)
[2024-10-26] MEDS ORDERED: LIDOCAINE 4% PATCH TOP SCH (08:00)
--- NOTE | 2024-10-26 13:36 | P.RH.PN ---
Estimated Length of Stay: 16 Expected Discharge Date: 11/07/24 Discharge Disposition Plan: Home Family Support: Yes Penitentiary Goal: Mobility, Transfers, Self Care Vital Signs: Last Vital Signs Temp 97.4 F 10/26/24 08:00 Pulse 74 10/26/24 08:00 Resp 12 10/26/24 08:00 BP 103/54 L 10/26/24 08:00 Pulse Ox 97 10/26/24 08:00 Laboratory: Laboratory Last Values WBC 6.90 thou/uL (4.3-10.9) 10/25/24 06:05 RBC 2.65 M/uL (3.86-4.86) L 10/25/24 06:05 Hgb 8.1 g/dL (12.0-15.0) L 10/25/24 06:05 Hct 24.1 % (36.0-45.0) L 10/25/24 06:05 MCV 90.8 fL (80-100) 10/25/24 06:05 MCH 30.5 pg (27.0-35.0) 10/25/24 06:05 MCHC 33.5 g/dL (32.0-36.0) 10/25/24 06:05 RDW 16.7 % (12.1-15.2) H 10/25/24 06:05 Plt Count 220 thou/uL (152-406) 10/25/24 06:05 MPV 9.2 fL (7.6-11.3) 10/25/24 06:05 Neutrophils % 43.6 % (41.7-73.7) 10/25/24 06:05 Lymphocytes % 37.8 % (15.3-44.8) 10/25/24 06:05 Monocytes % 18.1 % (3.3-12.3) H 10/25/24 06:05 Eosinophils % 0.0 % (0-4.4) 10/25/24 06:05 Basophils % 0.5 % (0-1.3) 10/25/24 06:05 Absolute Neutrophils 3.0 K/uL (1.8-8.0) 10/25/24 06:05 Absolute Lymphocytes 2.6 K/uL (0.7-4.9) 10/25/24 06:05 Absolute Monocytes 1.2 K/uL (0.1-1.3) 10/25/24 06:05 Absolute Eosinophils 0.0 K/uL (0-0.5) 10/25/24 06:05 Absolute Basophils 0.0 K/uL (0-0.5) 10/25/24 06:05 Sodium 139 mEq/L (136-145) 10/25/24 06:05 Potassium 5.1 mEq/L (3.5-5.1) 10/25/24 06:05 Chloride 102 mEq/L (98-107) 10/25/24 06:05 Carbon Dioxide 33 mEq/L (21-32) H 10/25/24 06:05 Anion Gap 9.1 mEq/L (5.0-15.0) 10/25/24 06:05 BUN 43 mg/dL (7-18) H 10/25/24 06:05 Creatinine 1.32 mg/dL (0.55-1.02) H 10/25/24 06:05 Est GFR (CKD-EPI) 42 ml/min (=/>90) L 10/25/24 06:05 Glucose 167 mg/dL (74-106) H 10/25/24 06:05 POC Glucose 302 mg/dL (65-120) H 10/26/24 11:19 Hemoglobin A1c 6.5 % (4.2-6.3) H 10/25/24 06:05 Calcium 10.4 mg/dL (8.5-10.1) H 10/25/24 06:05 Magnesium 1.9 mg/dL (1.6-2.4) 10/25/24 06:05 Albumin 2.4 g/dL (3.4-5.0) L 10/25/24 06:05 Prealbumin 16.4 mg/dL (20-40) L 10/25/24 06:05 Urine Color Light-yellow (Yellow) 10/24/24 16:20 Urine Clarity Clear (Clear) 10/24/24 16:20 Urine pH 6.0 (5.0-7.0) 10/24/24 16:20 Ur Specific [place] 1.014 (1.005-1.030) 10/24/24 16:20 Glucose (UA)(Auto) 4+ (over) (Negative) H 10/24/24 16:20 Urine Ketones Negative (Negative) 10/24/24 16:20 Urine Blood Negative (Negative) 10/24/24 16:20 Urine Nitrite Negative (Negative) 10/24/24 16:20 Urine Bilirubin Negative (Negative) 10/24/24 16:20 Urine Urobilinogen Normal (Normal) 10/24/24 16:20 Ur Leukocyte Esterase Negative Rachelle/uL (Negative) 10/24/24 16:20 Urine Total Protein Negative (Negative) 10/24/24 16:20 Weight: 167 lb Physician Update: Labs reviewed and are stable. Mild malnutrition and dehyd ration. Her pain is managed with multiple modalities. She is sleeping well. She has a negative left hip x-ray for unexpected findings. Now reports right hip pain. Will do a right hip x-ray. BIMS 7, SLUMS 10. Poor cognitive functioning and attention. Poor short term memory. Dependent toileting, lower body dressing, mod assit showers. Max for stand and pivot, RW 7' min assist. Poor sleep last night. WC 100' with CGA. Goal is wheelchair independence. Summary: Patient's care plan and senior living goals have been reviewed and revised as necessary. Please see the Rehabilitation Signature page for all necessary signatures.
--- NOTE | 2024-10-26 18:22 | RAD REPORT ---
Exam:Hip Right 2 View HISTORY: Right hip pain FINDINGS: No fracture or dislocation seen. The bones are osteoporotic. Mild osteoarthritis right hip
[2024-10-28 07:40] LABS: Absolute Lymphocytes (CBC) 1.8 K/uL (0.7-4.9); Absolute Monocytes 1.1 K/uL (0.1-1.3); Absolute Neutrophil 3.5 K/uL (1.8-8.0); Basophils % 0.5 % (0-1.3); Hematocrit 25.6 % (36.0-45.0); Hemoglobin 8.6 g/dL (12.0-15.0); Lymphocytes % 27.7 % (15.3-44.8); MCH 30.7 pg (27.0-35.0); MCHC 33.5 g/dL (32.0-36.0); MCV 91.6 fL (80-100); MPV 8.5 fL (7.6-11.3); Monocytes % 17.3 % (3.3-12.3); Neutrophils % 54.5 % (41.7-73.7); Nucleated Red Blood Cells % 0.1 % (0-0); Platelets 397 thou/uL (152-406); Red Cell Distribution Width 16.9 % (12.1-15.2)
[2024-10-28 07:51] LABS: Anion Gap 8.9 mEq/L (5.0-15.0); Potassium 3.9 mEq/L (3.5-5.1)
--- NOTE | 2024-10-29 20:04 | PN ---
Date of Progress Note: 10/29/2024 Time Of Service: 1:15 p.m. Subjective: Ms. Menezes is doing very well. She was actually in the bathroom area taking care of the ablutions. Pain is much better controlled and she was working with the occupational therapist a nd previously she would wince and make loud noises when attempts were made for transfers and mobiliza tion and the therapist that she is actually not doing any of that, she is smiling and laughing and pa in seems to have improved significantly. She did of course have the left femoral neck fracture and h as had surgical repair. She is also reporting pain in the right hip. As a result of her hip, x-rays done right and left and the left hip showed no unexpected findings, prosthesis in place, and the rig ht hip showed no fracture. No reports of fevers, chills, nausea, vomiting, myalgias, arthralgias. N o significant new complaints. Physical Examination: Vital Signs: Blood pressure 153/67, pulse 77, respiratory rate 18, temperature 97.6, oxygen saturati on 95%. General: Ms. Menezes was at the sink taking care of her activities. She is in no acute distress. HEENT: She appears normocephalic, atraumatic. Extremities: The lower extremity on the left, there is good hemostasis. No new findings there. Laboratory Studies: White blood cell count 6.4, hemoglobin 8.6, platelets are 397. Earlier today ar ound 6:40 in the morning, blood sugars were low at 52. She had glucose replacement, by 7:19 in the m orning was 96 and by 10:58, it was 243. The patient will be encouraged to take a snack at night. He r medication regimen does include Semglee insulin. She is on 12 units twice daily. May decrease the overnight insulin to 10 units; however, again the patient will be encouraged to take a snack at [facility] t, so that her blood sugars in the morning are not in the low level. X-ray/imaging: Again, the hip x-ray that was done over the weekend including right or left side show ed mild osteoarthritis in the right hip. No fractures. Bones are osteoporotic. Medications: She has [place] 5/325 every 6 hours as needed, Tylenol No.3 every 6 hours as well. She h as albuterol nebulizer for shortness of breath 2.5 mg every 6 hours as needed, allopurinol 100 mg tim ly for gout, Eliquis 5 mg twice daily for stroke and DVT risk reduction, Lipitor 10 mg at bedtime, Co reg 6.25 mg twice daily for diarrhea which she had a few bouts. She has Lomotil 1 tablet every 6 nash rs as needed, Depakote 500 mg at bedtime, duloxetine 30 mg twice daily, Glucerna 237 mL twice daily, ferrous sulfate 325 mg daily, Lasix 20 mg daily, gabapentin 600 mg twice daily, Semglee insulin now 1 2 units twice daily. She has Atrovent nebulizer. She has lactulose as needed, Synthroid for hypothy roidism, lidocaine patch, lisinopril 2.5 mg daily, Claritin 10 mg daily, metformin 1000 mg twice julio y, Robaxin 500 mg every 6 hours, HemocytePlus 1 tablet daily, Protonix 40 mg daily, Senokot-S 2 at be dtime, Aldactone 25 mg daily, tramadol 50 mg scheduled in the morning at 7 a.m. and then as needed ev aretha 6 hours. Progress Made With Physical, Occupational, And Speech Therapy: With her physical therapy today, she performed [id number] transfers with contact guard assistance using a rolling walker. She ambulated 15 feet with contact guard assistance using a rolling walker. She propelled a wheelchair 150 feet, 100 feet, and 75 feet with standby assistance using bilateral upper extremities. She was able to neg otiate around corners and obstacles in the hallway. With speech, she was oriented to temporal concep ts with 100% accuracy, spatial concepts with 25% accuracy. Three of 3 unrelated words were recalled after 1 minute with a cued recall and after 5 minutes also with cued recall. Convergent naming was d emonstrated for concrete concepts with 100% accuracy and moderate assistance. Assessment And Plan: Ms. Menezes is a 74-year-old patient in the rehabilitation unit with a proxi mal left femoral neck fracture. She has mild decreased mobility, decreased physical functioning, and multiple comorbid conditions as noted above. She has a list of medications to continue with that. She has tramadol for pain. Also, pain is much better managed. She has [place], Tylenol. Her gout is under control. She has anemia addressed with ferrous sulfate. Malnutrition addressed with protein s upplementation. She has diabetes mellitus with an episode of hypoglycemia. May make an adjustment o n insulin or metformin. We will see what the levels are tomorrow. She should have a snack at night and issues of bowel movements been addressed with both loose stools as well. Comorbidities Impacting Rehabilitation: The pain which is a big issue is now much better managed and is not the limiting factor with her therapy. She is smiling a lot more and doing very well. DALTON/MODL Voice ID: [id number] Report ID: [id number]
--- NOTE | 2024-10-30 14:43 | PN ---
Date of Progress Note: 10/30/2024 Time Of Service: 1:20 p.m. Subjective: Ms. Menezes is lying in bed in between therapy sessions. She is very happy with her progress so far. Pain is less so in the left hip, where there is a fracture. The nursing staff and the therapist do realize when working with her, she is not voicing loudly that there is significant p ain and that is ongoing from yesterday. Again, pain level seems to be significantly less as she is d oing therapy and she did not have new complaints today. Objective: No fevers, chills. No nausea, vomiting. She did not have any issues at the surgical sit e of her left proximal femur fracture. Physical Examination: Vital Signs: Blood pressure 168/70, pulse 71, respiratory rate is 18, temperature 98, oxygen saturat ion 95%. General: Ms. Menezes is resting in bed in between therapy sessions. HEENT: She appears normocephalic, atraumatic. Sclerae anicteric. Oropharynx pink, moist. Extremities: She does not have any significant edema, cyanosis, or clubbing in the extremities. Laboratory Studies: Her blood sugars ranged 140 to 179. X-ray/imaging: No new x-rays or imaging. Medications: Her medications have been reviewed and continued unchanged. She is on Senokot for cons tipation 2 twice daily. She has Aldactone, tramadol for pain as well. She has Hemocyte Plus for mal nutrition, Protonix for GE reflux, metformin for diabetes mellitus. She has Prinivil for blood press ure control, Synthroid for hypothyroidism, nebulizer treatment for shortness of breath, gabapentin fo r neuropathic pain, and duloxetine on board for neuropathic pain and mood stabilization, Eliquis for DVT prophylaxis, allopurinol for gout, and [place] for her pain. Progress Made With Physical, Occupational, And Speech Therapy: Today with physical therapy, she was able to perform bed to wheelchair transfers with contact guard to minimum assistance, shower transfer s also as well, showering performed with minimum assistance. She required help to watch her buttocks while standing. She did upper body dressing with setup assistance required. With physical therapy, she ambulated 15 feet with contact guard assistance, using a rolling walker and self propel a wheelc hair 150 feet and 100 feet and 75 feet with standby assistance. She worked with speech and she was o riented to temporal concepts with 100% accuracy and spatial concepts with 25% accuracy, 3 of 3 unrela viktoria words were recalled after 1 minute and then with cuing after 5 minutes. Convergent naming demons trated with concrete concepts with 100% accuracy and moderate assistance required. Assessment: Ms. Menezes is a 74-year-old patient in rehabilitation unit with left proximal femora l neck fracture. She still has significant debility, decreased mobility, decreased physical function ing, multiple comorbidities which are being managed including her shortness of breath, atrial fibrill ation, on anticoagulation, dyslipidemia. She has depression and anxiety addressed with multiple moda lity treatment in addition to hypothyroidism, hypertension, and significant pain which have improved. Plan: She will continue with physical, occupational, and speech therapy. As noted, her list of medi cations also were being adjusted as appropriate, but will be continued for now. After discharge, she will need aggressive therapy to continue. Depending on how well she is doing, she may have to go to senior care prior to going home, but our overall goals for her to go home and continue therapy v [facility]. DALTON/MELISSA Voice ID: [id number] Report ID: [id number]
[2024-10-30] MEDS: DIPHENOX/ATROP SULF 1 TAB PO PRN (20:21)
[2024-10-31] MEDS: INSULIN GLARGINE 100 UNIT/ML SQ SCH (07:26)
[2024-10-31] MEDS: METFORMIN HCL 500 MG TAB PO SCH (07:29)
[2024-10-31 11:22] LABS: Absolute Lymphocytes (CBC) 1.5 K/uL (0.7-4.9); Absolute Neutrophil 4.7 K/uL (1.8-8.0); Basophils % 0.4 % (0-1.3); Hematocrit 26.4 % (36.0-45.0); Hemoglobin 8.5 g/dL (12.0-15.0); Lymphocytes % 21.4 % (15.3-44.8); MCH 30.3 pg (27.0-35.0); MCHC 32.3 g/dL (32.0-36.0); MCV 93.8 fL (80-100); MPV 8.9 fL (7.6-11.3); Monocytes % 13.3 % (3.3-12.3); Neutrophils % 64.9 % (41.7-73.7); Nucleated Red Blood Cells % 0.2 % (0-0); Platelets 416 thou/uL (152-406); RBC Red Blood Cell Count 2.82 M/uL (3.86-4.86); Red Cell Distribution Width 19.4 % (12.1-15.2)
[2024-10-31 11:47] LABS: Albumin 2.5 g/dL (3.4-5.0); Anion Gap 8.6 mEq/L (5.0-15.0); Magnesium 1.7 mg/dL (1.6-2.4); Potassium 4.6 mEq/L (3.5-5.1)
--- NOTE | 2024-11-01 14:21 | RAD REPORT ---
EXAMINATION: Hip Left 2 View VIEWS: As above CLINICAL INDICATION: Female, 74 years old. swelling to left hip COMPARISON: 10/25/2024 IMPRESSION: Left hip ORIF with proximal subtle medullary screw and distal interlocking rods. The hardware appears intact.. Longitudinally oriented lucency through the lesser trochanter consistent with an acute/subacute fract ure. Skin valente present so presumably the left hip ORIF was recent and so this may be the patient's initial injury. No recent preoperative imaging is available, however. No dislocation.
--- NOTE | 2024-11-01 20:29 | PN ---
Date of Progress Note: 11/01/2024 Time Of Service: 1:20 p.m. Subjective: Ms. Menezes is lying in bed and resting in between therapy sessions. She is very hap py and smiling. Did say pain in the left hip, which has valente still in place, which does have some mild swelling per the staff, but good hemostasis. X-rays of the hip was done today due to the possi bility of some increased edema or fluid collection. The study showed a longitudinal oriented lucency through the lesser trochanter consistent with an acute to subacute fracture. Skin valente were pres ent and open reduction and internal fixation and radiologist noted no recent preoperative imaging was available for comparison. Also, there were medullary screws and distal interlocking rods were in pl igor. Hardware was intact without dislocation. Review of Systems: She is smiling and happy and said pain is much better controlled in the eft hip has no new complaints . Physical Examination: Vital Signs: Blood pressure 119/60, pulse 69, respiratory rate 18, temperature 98.0, oxygen saturati on 95%. Weight 116 pounds, height 5 feet 5 inches, BMI 27.8. General: Again, Ms. Menezes is lying in bed between therapy sessions. HEENT: She appears normocephalic and atraumatic. Musculoskeletal: She has no unexpected changes except perhaps postoperative findings, which again on the x-ray show no unusual findings, has normal progression. She has had surgery to repair the hip. Laboratory Studies: White blood cell count 7.2, hemoglobin 8.5, platelets 416. Sodium 136, potassiu m 4.6, chloride 102, carbon dioxide is 30, creatinine is 0.04, BUN 36, blood sugars ranged from 149 t o 269, calcium 9.7. Magnesium 1.2. Albumin 2.5, prealbumin 19. Medications: Her medications are unchanged and have been reviewed. She is on the Semglee insulin, w hich is now 6 units twice daily. She did have at 1 point drop in her blood sugar to the 40 around 06 :42 in the morning of the and subsequently blood sugars have actually improved and are somewhat increased after the Semglee insulin dosage was decreased by half. Furthermore, her metformin dosage was also decreased from a 1000 mg twice a day to 500 mg twice daily. The change in blood sugars like ly reflect combination of patient doing more exercise and perhaps she actually did not have a snack a t night yesterday. Blood sugar today is again slightly elevated, but we will keep insulin dosage unc hanged and may make adjustments appropriately. Progress Made With Physical, Occupational, And Speech Therapy: With physical therapy, she completed 20 feet twice with minimal assistance using a rolling walker. Wheelchair mobilization was 150 feet w ith minimum assistance. Bed mobility, she was able to do so with minimum assistance and the therapis t noted some pain in the left upper extremity, but it was prohibitive in terms of her capacity to par ticipate in therapy. Regarding her occupational therapy, she did have a shower 2 days ago and she wa nted to wait until tomorrow to complete the next shower. Oral hygiene and grooming all done independ ently while sitting in a wheelchair and donning and doffing of socks and shoes required min assist. She was encouraged to do her activities of daily living by her therapist. Regarding her speech, she did have significant issues with memory and the therapist noted confabulation at times. She was eval uated for temporal orientation skills and she exhibited 100% accuracy. Spatial concepts were only co rrect about 25% of the time. Divergent naming for 1 abstract category was completed with 100% accura cy and moderate assistance. Assessment And Plan: Ms. Menezes is a 74-year-old patient admitted with left proximal femur fract ure that is repaired with open reduction and internal fixation. Pain is improving in the left hip. There is some mild swelling on x-ray, but not unexpected changes. The hardware shows no unexpected f indings. No dislocation. She still has decreased mobility, decreased physical functioning. Diabet es mellitus, blood sugar is slightly elevated, may make adjustments to the Semglee insulin and to the metformin as appropriate. We will continue Prinivil for blood pressure control, magnesium for muscl e spasms, melatonin for insomnia. Continue tramadol and Tylenol along with [place] for pain and lisa lee continue with protein supplementation, continue with nebulizer treatment as appropriate and she elana lee continue with physical, occupational, and speech therapy 3.5 hours, 5 of 7 days. LB/MODL Voice ID: [id number] Report ID: [id number]
[2024-11-02 07:41] LABS: Absolute Basophils 0.1 K/uL (0-0.5); Absolute Lymphocytes (CBC) 2.1 K/uL (0.7-4.9); Absolute Neutrophil 4.4 K/uL (1.8-8.0); Basophils % 1.3 % (0-1.3); Hematocrit 28.1 % (36.0-45.0); Hemoglobin 9.4 g/dL (12.0-15.0); Lymphocytes % 27.8 % (15.3-44.8); MCH 31.3 pg (27.0-35.0); MCHC 33.4 g/dL (32.0-36.0); MCV 93.9 fL (80-100); MPV 8.3 fL (7.6-11.3); Monocytes % 12.9 % (3.3-12.3); Platelets 457 thou/uL (152-406); RBC Red Blood Cell Count 2.99 M/uL (3.86-4.86); Red Cell Distribution Width 19.5 % (12.1-15.2)
[2024-11-02 08:02] LABS: Anion Gap 6.1 mEq/L (5.0-15.0); Magnesium 1.7 mg/dL (1.6-2.4); Potassium 4.1 mEq/L (3.5-5.1)
--- NOTE | 2024-11-02 13:47 | P.RH.PN ---
Estimated Length of Stay: 14 Expected Discharge Date: 11/14/24 Discharge Disposition Plan: Home Family Support: Yes Intermediate Goal: Mobility, Transfers, Self Care Vital Signs: Last Vital Signs Temp 97.8 F 11/02/24 07:37 Pulse 75 11/02/24 08:04 Resp 16 11/02/24 12:27 BP 147/72 H 11/02/24 08:04 Pulse Ox 93 11/02/24 12:27 Laboratory: Laboratory Last Values WBC 7.70 thou/uL (4.3-10.9) 11/02/24 07:34 RBC 2.99 M/uL (3.86-4.86) L 11/02/24 07:34 Hgb 9.4 g/dL (12.0-15.0) L 11/02/24 07:34 Hct 28.1 % (36.0-45.0) L 11/02/24 07:34 MCV 93.9 fL (80-100) 11/02/24 07:34 MCH 31.3 pg (27.0-35.0) 11/02/24 07:34 MCHC 33.4 g/dL (32.0-36.0) 11/02/24 07:34 RDW 19.5 % (12.1-15.2) H 11/02/24 07:34 Plt Count 457 thou/uL (152-406) H 11/02/24 07:34 MPV 8.3 fL (7.6-11.3) 11/02/24 07:34 Neutrophils % 58.0 % (41.7-73.7) 11/02/24 07:34 Lymphocytes % 27.8 % (15.3-44.8) 11/02/24 07:34 Monocytes % 12.9 % (3.3-12.3) H 11/02/24 07:34 Eosinophils % 0.0 % (0-4.4) 11/02/24 07:34 Basophils % 1.3 % (0-1.3) 11/02/24 07:34 Absolute Neutrophils 4.4 K/uL (1.8-8.0) 11/02/24 07:34 Absolute Lymphocytes 2.1 K/uL (0.7-4.9) 11/02/24 07:34 Absolute Monocytes 1.0 K/uL (0.1-1.3) 11/02/24 07:34 Absolute Eosinophils 0.0 K/uL (0-0.5) 11/02/24 07:34 Absolute Basophils 0.1 K/uL (0-0.5) 11/02/24 07:34 Sodium 137 mEq/L (136-145) 11/02/24 07:34 Potassium 4.1 mEq/L (3.5-5.1) 11/02/24 07:34 Chloride 104 mEq/L (98-107) 11/02/24 07:34 Carbon Dioxide 31 mEq/L (21-32) 11/02/24 07:34 Anion Gap 6.1 mEq/L (5.0-15.0) 11/02/24 07:34 BUN 31 mg/dL (7-18) H 11/02/24 07:34 Creatinine 0.95 mg/dL (0.55-1.02) 11/02/24 07:34 Est GFR (CKD-EPI) 62 ml/min (=/>90) L 11/02/24 07:34 Glucose 174 mg/dL (74-106) H 11/02/24 07:34 POC Glucose 210 mg/dL (65-120) H 11/02/24 12:07 Hemoglobin A1c 6.5 % (4.2-6.3) H 10/25/24 06:05 Calcium 9.7 mg/dL (8.5-10.1) 11/02/24 07:34 Magnesium 1.7 mg/dL (1.6-2.4) 11/02/24 07:34 Albumin 2.5 g/dL (3.4-5.0) L 10/31/24 11:06 Prealbumin 19.0 mg/dL (20-40) L 10/31/24 11:06 Urine Color Light-yellow (Yellow) 10/24/24 16:20 Urine Clarity Clear (Clear) 10/24/24 16:20 Urine pH 6.0 (5.0-7.0) 10/24/24 16:20 Ur Specific [place] 1.014 (1.005-1.030) 10/24/24 16:20 Glucose (UA)(Auto) 4+ (over) (Negative) H 10/24/24 16:20 Urine Ketones Negative (Negative) 10/24/24 16:20 Urine Blood Negative (Negative) 10/24/24 16:20 Urine Nitrite Negative (Negative) 10/24/24 16:20 Urine Bilirubin Negative (Negative) 10/24/24 16:20 Urine Urobilinogen Normal (Normal) 10/24/24 16:20 Ur Leukocyte Esterase Negative Rachelle/uL (Negative) 10/24/24 16:20 Urine Total Protein Negative (Negative) 10/24/24 16:20 Weight: 167 lb Wound Present: No Closed Surgical Incision Present: Yes Negative Pressure Wound Therapy Present: No Physician Update: She is experiencing pain while walking a few steps. Will scheduled Tramadol 100 mg in AM and gabapentin 600 mg tid. Difficulty recalling words with mild to mod cog impairment. Min assist with most transfers. RW 30' and 15' with min assist. Met 6/6 STG and 1/4 LTG, max assist lower body dressing. Decreased motivation possible due to pain. Summary: Patient's care plan and custodial goals have been reviewed and revised as necessary. Please see the Rehabilitation Signature page for all necessary signatures.
[2024-11-02] MEDS: GABAPENTIN 300 MG CAP PO SCH (14:45)
[2024-11-02] MEDS: MAGNESIUM OXIDE 400 MG TAB PO SCH (20:41)
[2024-11-03 05:14] VITALS: BMI 27.5
[2024-11-03] MEDS: TRAMADOL HCL 50 MG TAB PO SCH (07:17)
[2024-11-03] MEDS: EMPAGLIFLOZIN 10 MG PO SCH (08:08)
[2024-11-04] MEDS: DOCUSATE NA/SENNA CONC 1 TAB PO PRN (19:23)
--- NOTE | 2024-11-05 19:07 | PN ---
Date of Progress Note: 10/28/2024 Time Of Service: 1:10 p.m. Subjective: Ms. Menezes is resting in bed and she was taking a nap between therapy sessions and s he did report an arousal that there was some increased pain in the left hip area. Palpation did demo nstrate a hard hematoma that is not yet liquified. The patient did say that the pain was more than i t did in the past. However, the therapist did indicate she seemed to do more with less pain when wit h therapy today and when she is at the end of the session or prior to that, she may decide that she i s finished with therapy. The CT scan of the left hip will be done to evaluate the size of the hemato ma and to determine if an intervention is required. There is good hemostasis at the site without the drainage in the bandage that is noted. Objective: She had no fevers or chills. Again mild pain in the left hip. No other myalgias or arth ralgias. No rash. No other complaints. Physical Examination: Vital Signs: Blood pressure is 120/68, pulse of 70, respiratory rate of 18, temperature is 98.2, oxy gen saturation 97%. Weight 165 pounds, height 5 feet 5 inches. BMI 27.5. General: Ms. Menezes is resting comfortably. She appears to be in no acute distress. When her h earing aid is in place, she communicates very well. She still reads lips without the hearing aid in place and in terms of the exam, no unusual findings or unexpected findings and the evaluation of the left hip shows some perhaps slight increase in the size of the hematoma, but that will be assessed wi th a CT scan. Laboratory Studies: No new laboratory studies. In terms of white blood cell count that was done 2 d ays ago actually was 7.7 and has remained normal. Hemoglobin is at 9.4, initially 8.1, platelets 457 . Blood sugars ranged from 145 to 256. Medications: Have been reviewed and are unchanged. She has a tramadol scheduled, which is helpful f or pain. Progress Made With Physical, Occupational, And Speech Therapy: Today with speech therapy, she was ab le to recall 2 of 3 unrelated items after 1 minute, but subsequent attempts required maximum assistan ce and she was unable to recall the items. She required minimum assistance for temporal and spatial orientation tasks. She needed moderate assistance or organized thinking of concrete concepts and was 60% accurate. Regarding additional therapy for occupational therapy, she was at supervision level f or toilet hygiene and toilet transfers. She did reportedly cry out in pain at 1 point when working w ith the therapists. Regarding her physical therapy, she completed seated exercises and was able to a mbulate 30 feet and 20 feet with minimum assistance using a rolling walker and at that point refused to walk further. Assessment: Ms. Menezes is a 74-year-old patient in the rehabilitation unit with left hip fractur e, status post repair. She does report significant pain in the left hip. There is some increased sw elling in the left surgical site with likely a hematoma. CT scan of the area will be used to evaluat e any change in the nature of the hematoma. There is externally good hemostasis. She has scheduled tramadol. She has Senokot on board for constipation. She has Glucophage for diabetes control, lisin opril for hypertension control, Synthroid on board, simply insulin also for managing diabetes, Lasix for fluid management, gabapentin for neuropathic pain. She has nebulizer treatment on board. Has Co reg for blood pressure control. She has allopurinol for gout and she will continue in terms of thera py 3.5 hours, 5 of 7 days along with a list of medications and follow up on the CT scan that is sched uled. DALTON/MELISSA Voice ID: [id number] Report ID: [id number]
[2024-11-05] MEDS: MAGNESIUM OXIDE 400 MG TAB PO SCH (19:30)
[2024-11-05] MEDS: APIXABAN 2.5 MG TABLET PO SCH (19:30)
--- NOTE | 2024-11-05 21:00 | RAD REPORT ---
EXAMINATION: CT LEFT HIP WITHOUT CONTRAST CLINICAL INDICATION: Female, 74 years old. post hip surgery TECHNIQUE: CT left hip was performed, without IV contrast, as per department protocol. Axial, sagitta l and coronal reconstructions were obtained. One or more of the following dose reduction techniques were used: Automated exposure control, adjustment of the mA and/or kV according to patient size, and/ or iterative reconstruction. Unless otherwise specified, incidental findings do not require dedicated imaging follow-up. COMPARISON: Left hip radiographs 11/01/2024. FINDINGS: The lack of intravenous contrast limits the sensitivity of this exam. Streak artifact resulting from left hip fusion hardware also limits evaluation. MUSCULOSKELETAL: Near-anatomic alignment of fracture at the base of the neck of the femur, with compo nents involving the base of the lesser trochanter. Satisfactory alignment of left femoral neck compression screw and intramedullary cony. Hyperdense hematoma emanating at the top of the femoral int ramedullary cony, and extending cranially along the substance of the gluteus iam and medius muscles as described below. SOFT TISSUE: Bilobed heterogeneously hyperdense hematoma underlying the upper hip incision marked wit h metallic skin valente, with the largest component within the subcutaneous soft tissues measuring 6.4 x 4.4 x 7.1 cm in greatest transverse, AP, and CC dimensions, with an adjacent deeper component p resent within the substance of the left gluteus medius and iam muscles, measuring 5.7 x 3.6 x 5.4 cm in greatest transverse, AP, and CC dimensions. Another sizable hematoma component within the s ubcutaneous soft tissues at the level of the proximal femoral shaft underlying the lower incision site marked with metallic skin valente. This measures 8.1 x 3.7 x 6.5 cm in greatest transverse, AP, and CC dimensions. PELVIS: The visualized pelvic structures are unremarkable apart. Few scattered colonic diverticula. LYMPH NODES: No lymphadenopathy. ADDITIONAL FINDINGS: None. IMPRESSION: Multiple hematoma components along the surgical tracts both along the superior and inferior surgical incision sites, with a deeper component along the top of the femoral intramedullary nail, extending within the substance of the gluteus medius and iam muscles. Hardware is in satisfactory alignment , with near-anatomic alignment of the femoral neck fracture.
[2024-11-06 06:02] LABS: Absolute Basophils 0.1 K/uL (0-0.5); Absolute Lymphocytes (CBC) 2.2 K/uL (0.7-4.9); Absolute Neutrophil 2.9 K/uL (1.8-8.0); Basophils % 1.2 % (0-1.3); Hematocrit 28.5 % (36.0-45.0); Hemoglobin 9.5 g/dL (12.0-15.0); Lymphocytes % 36.1 % (15.3-44.8); MCH 31.8 pg (27.0-35.0); MCHC 33.4 g/dL (32.0-36.0); MCV 95.1 fL (80-100); MPV 8.6 fL (7.6-11.3); Monocytes % 15.8 % (3.3-12.3); Neutrophils % 46.9 % (41.7-73.7); Platelets 454 thou/uL (152-406); RBC Red Blood Cell Count 2.99 M/uL (3.86-4.86); Red Cell Distribution Width 19.5 % (12.1-15.2)
[2024-11-06 06:23] LABS: Albumin 2.7 g/dL (3.4-5.0); Anion Gap 7.7 mEq/L (5.0-15.0); Magnesium 2.6 mg/dL (1.6-2.4); Potassium 4.7 mEq/L (3.5-5.1); Prealbumin 20.5 mg/dL (20-40)
--- NOTE | 2024-11-07 00:49 | PN ---
Date of Progress Note: 11/06/2024 Time Of Service: 1:10 p.m. Subjective: Ms. Malin is resting in bed in between therapy sessions. While she does say there is sig nificant pain in the left hip, her affect does not match that. She is smiling and saying the pain is about 10/10, but not necessarily outwardly showing that. However, the patient is always taken peter usly when she mentions her pain and pain medications have been adjusted accordingly. She did have a CT scan of the left hip. The scan, as noted yesterday, showed hematomas in the areas that were not n ecessarily unexpected, although they were perhaps larger in the left hip surgical site than would hav e been seen. However, there was no evidence of ongoing bleeding in the region. Objective: Again, some pain in the left hip as noted. There is good hemostasis of the surgical site . There is no sign of infections, such as warmth or oozing or excessive redness. Physical Examination: Vital Signs: Blood pressure 100/59, pulse of 67, respiratory rate 18, temperature 97.8, oxygen satur ation 97%. Weight 165 pounds, height 5 feet 5 inches, BMI 27.5. General: Ms. Menezes is lying in bed. She does require assistive device to hear at conversationa l level, but at higher levels with reading lips she can communicate effectively. HEENT: She still appears normocephalic, atraumatic. Sclerae anicteric. Oropharynx is pink and mois t. Extremities: Mild edema in the left lower extremity. Good hemostasis at the left hip surgical site. Laboratory Studies: White blood cell count 6.2, hemoglobin 9.5, platelets 454. Sodium 137, potassiu m 4.7, chloride 102, carbon dioxide 32, BUN 37, creatinine 1.2, glucose ranged from 160 to 243. Calc ium 9.1, magnesium 2.6, albumin 2.7. Prealbumin 20.5. X-ray/imaging: As noted. Medications: Medications have been continued. She is on Eliquis 2.5 mg twice daily. We have decrea sed from 5 mg twice daily when hematoma was identified. Additionally, medications have been continue d unchanged. As noted previously, she still has Protonix on board. Progress Made With Physical, Occupational, And Speech Therapy: Today, with physical therapy, she was able to do [id number] transfers with contact guard assistance. Multiple cxi-zz-behzi transfers a lso with contact guard assistance. She ambulated with a rolling walker 125 feet with contact guard a ssistance. Emphasis was placed on upright posture. Mobilized the wheelchair 125 feet independently. With occupational therapy, she is independent with bed mobility, fzhznn-er-nes transfers twice, mob ilized from room to toilet with a rolling walker and completed transfers with the rolling walker inde pendently. With speech, she did score 9/15 on the BIMS and 16/30 on the SLUMS test consistent with m [id number] cognitive impairment. It was recommended she continue with speech therapy. She is chuck arabellazita to [facility], where she will continue therapy in a safe environment. Assessment: Ms. Menezes is a 74-year-old patient in the rehabilitation unit with left proximal fe mur fracture, status post surgical repair. She does have some hematomas around the area, but no evid ence of infection in that region on CT scan done. She will follow up with orthopedic surgeon this fo wing week and will have potentially the valente removed and additional management of her surgical site. She has multiple comorbid conditions, which have been noted and include gastroesophageal reflu x. Of course, the pain is noted. She has anemia. She has mild malnutrition; gout; dyslipidemia; re mote seizures, controlled with Depakote; Cymbalta for controlling depression; allergies addressed wit h Flonase; Lasix for fluid management; gabapentin for neuropathic pain; Semglee insulin for managemen t of diabetes mellitus; Synthroid for hypothyroidism along with Claritin again for allergies; melaton in for insomnia; metformin added also for diabetes mellitus. These medications will be continued. I n terms of her therapy, she will continue with physical, occupational, and speech therapy until discharge, which will be in the morning. LB/MODL Voice ID: [id number] Report ID: [id number]
[2024-11-07 06:29] VITALS: BP 148/72; TEMP 98
[2024-11-07] MEDS: PANTOPRAZOLE 40MG TABLET PO SCH (07:11)
== END 2024-11-07 10:35 | DRG 560 ==
LOC: 5TH 14:45
PROVIDERS: ADMIT Psychiatry & Neurology Neurology with Special Qualifications in Child Neurology; ATTEND Psychiatry & Neurology Neurology with Special Qualifications in Child Neurology
DX: S72.002D Fracture of unspecified part of neck of left femur, subsequent encounter for closed fracture with routine healing (principal); E44.1 Mild protein-calorie malnutrition; I13.0 Hypertensive heart and chronic kidney disease with heart failure and stage 1 through stage 4 chronic kidney disease, or unspecified chronic kidney disease; L76.32 Postprocedural hematoma of skin and subcutaneous tissue following other procedure; I50.9 Heart failure, unspecified; E11.22 Type 2 diabetes mellitus with diabetic chronic kidney disease; N18.9 Chronic kidney disease, unspecified; E86.0 Dehydration; M62.838 Other muscle spasm; R53.81 Other malaise; I48.91 Unspecified atrial fibrillation; E11.649 Type 2 diabetes mellitus with hypoglycemia without coma; M16.11 Unilateral primary osteoarthritis, right hip; M10.9 Gout, unspecified; R06.02 Shortness of breath; K59.00 Constipation, unspecified; K21.9 Gastro-esophageal reflux disease without esophagitis; R19.7 Diarrhea, unspecified; E03.9 Hypothyroidism, unspecified; D64.9 Anemia, unspecified; G47.00 Insomnia, unspecified; E78.5 Hyperlipidemia, unspecified; F41.8 Other specified anxiety disorders; F03.90 Unspecified dementia, unspecified severity, without behavioral disturbance, psychotic disturbance, mood disturbance, and anxiety; G47.33 Obstructive sleep apnea (adult) (pediatric); I25.2 Old myocardial infarction; Z68.27 Body mass index [BMI] 27.0-27.9, adult
CPT/HCPCS: 36415; 73700; 74018; 80048; 81003; 82040; 82947; 83036; 83735; 84134; 85025; 92523; 97010; 97110; 97116; 97129; 97163; 97165; 97530; 97542; J1815; J2003